=== PATIENT | female | born 1965 | race Caucasian/White ===

== ENCOUNTER 2020-01-20 00:40 | Inpatient (IN) | payer OTHER, SELFPAY ==
[2020-01-20] VITALS (17 sets, daily range): BP systolic 74–134; BP diastolic 20–71; PULSE 70–100; RESP 12–24; TEMP 36.4–37.2; O2SAT 95–100; BMI 26.4
--- NOTE | 2020-01-20 00:57 | PC.NURSE ---
kristen ride/friend [phone]
--- NOTE | 2020-01-20 01:03 | ECG_ITS ---
Test Reason : CP Blood Pressure : / mmHG Vent. Rate : 079 BPM Atrial Rate : 079 BPM P-R Int : 142 ms QRS Dur : 100 ms QT Int : 436 ms P-R-T Axes : 041 044 052 degrees QTc Int : 499 ms Normal sinus rhythm Nonspecific ST abnormality Abnormal ECG When compared with ECG of 09-OCT-2019 16:19, Heart rate has decreased Referred By: Courtney Juárez Electronically Signed By:MEE MONROY MD
--- NOTE | 2020-01-20 01:03 | XR_ITS ---
EXAMINATION: CHEST 1 VIEW CLINICAL INFORMATION: Chest pressure. Shortness of breath. COMPARISON: 09/19/2019. TECHNIQUE: An AP view of the chest is provided. FINDINGS: The cardiac silhouette is not enlarged. The mediastinal and hilar contours are unremarkable. There are neither pleural effusions nor pneumothoraces. There are no consolidations. The osseous structures are unremarkable. XR/XR chest 1V IMPRESSION: No evidence for acute disease.
[2020-01-20 01:28] LABS: Basophils Percent Auto 0.2 % (0-2); Eosinophils Absolute Auto 0.1 X10*3/uL (0.0-0.4); Eosinophils Percent Auto 1.2 % (0-4); Imm Gran Pct Auto 0.8 % (0.0-0.4); MANUAL DIFF FLAG SCAN; PLT CLUMP 1; SCAN SMEAR FLAG 1
[2020-01-20 01:30] LABS: Hemoglobin 7.2 g/dl (12.0-16.0); Lymphocytes Absolute Auto 0.9 X10*3/uL (1.2-4.9); Lymphocytes Percent Auto 7.9 % (20-40); Mean Corpuscular HGB Conc 34.3 g/dl (31.0-35.0); Mean Corpuscular Hemoglobin 31.7 pg (27.0-33.0); Mean Corpuscular Volume 92.5 fL (80-98); Mean Platelet Volume 10.5 fL (9.4-12.3); Monocytes Absolute Auto 0.9 X10*3/uL (0.1-1.2); Monocytes Percent Auto 7.8 % (2-11); Neutrophils Absolute Auto 9.8 X10*3/uL (2.0-8.3); Neutrophils Percent Auto 82.1 % (45-73); Red Blood Count 2.27 X10*6/uL (4.20-5.50); Red Cell Distribution Width 21.1 % (11.0-16.0); White Blood Count 11.9 X10*3/uL (4.8-10.8)
[2020-01-20 01:42] LABS: Ammonia 113 umol/L (13-55)
[2020-01-20 01:51] LABS: Lipase 37 U/L (8-78)
[2020-01-20 01:53] LABS: Lactic Acid 4.2 mmol/L (0.5-2.0)
[2020-01-20] MEDS: Albuterol/Iprat 2.5/0.5MG 3 ML AMPUL.NEB INHALE (01:53)
[2020-01-20 01:58] LABS: Alanine Aminotransferase 31 U/L (0-31); Albumin Level 2.1 g/dL (3.5-5.0); Alkaline Phosphatase 141 U/L (39-117); Aspartate Amino Transferase 87 U/L (5-31); Bilirubin Total 4.9 mg/dL (0.0-1.0); Blood Urea Nitrogen 16 mg/dL (9-16); Calcium 7.6 mg/dL (8.4-10.2); Carbon Dioxide 20 mmol/L (22-29); Chloride 87 mmol/L (96-108); Creatinine Clr Calc Pharmacy 54.2; Estimated Glomerular Filt Rate 51; Glucose Random 104 mg/dL (60-115); Platelet Count 57 X10*3/uL (160-400); Potassium 4.1 mmol/l (3.3-5.1)
[2020-01-20 02:02] LABS: INTERNATIONAL NORM RATIO 2.2 (0.9-1.1); Prothrombin Time 26.2 SEC (10.8-13.0)
--- NOTE | 2020-01-20 02:03 | ED.GENADULT ---
HPI - General Adult General Chief complaint: General Medical Stated complaint: SOB Time Seen by Provider: 01/20/20 01:02 Source: patient History of Present Illness HPI narrative: This is a 54-year-old female with known past medical history of alcohol abuse, liver cirrhosis, hyponatremia, and COPD who was recently admitted at [facility] 2 days ago, seen earlier at [facility] but left prior to being evaluated due to length of waiting time, and is now presenting here to this emergency department with complaints of worsening shortness of breath to the point that she is unable to smoker cigarettes as well as feeling chest pressure. She states that while she was at [facility] she was tested for COVID-19 and that was negative. Otherwise, she denies any diarrhea, urinary pain/ burning / frequency, fevers, chills, nausea, or vomiting. The patient does endorse that she did not want to be home alone. Related Data Home Medications Medication Instructions Recorded Confirmed folic acid 1 tab PO DAILY 01/20/20 01/20/20 gabapentin 1 tab PO TID 01/20/20 01/20/20 hydroxyzine pamoate 1 cap PO TID 01/20/20 01/20/20 lactulose 15 g PO TID 01/20/20 01/20/20 lorazepam 1 tab PO TID PRN 01/20/20 01/20/20 magnesium oxide 1 tab PO BID 01/20/20 01/20/20 melatonin 3 mg PO BEDTIME PRN 01/20/20 01/20/20 omeprazole 20 mg PO DAILY 01/20/20 01/20/20 potassium chloride 1 tab PO BID 01/20/20 01/20/20 rifaximin [Xifaxan] 1 tab PO BID 01/20/20 01/20/20 spironolactone 50 mg PO DAILY 01/20/20 01/20/20 torsemide 20 mg PO DAILY 01/20/20 01/20/20 Allergies Allergy/AdvReac Type Severity Reaction Status Date / Time lamotrigine [From LAMICTAL] Allergy Intermediate RASH Verified 01/20/20 00:45 amoxicillin [AMOXICILLIN] Allergy Unknown NAUSEA & Verified 01/20/20 00:45 VOMITING Iodinated Contrast Media Allergy Unknown ANAPHYLAXIS Verified 01/20/20 00:45 [CONTRAST, IV] Sulfa (Sulfonamide Allergy Unknown UNKNOWN Verified 11/04/20 00:45 Antibiotics) [SULFA (SULFONAMIDE ANTIBIOTICS)] sulfamethoxazole Allergy Unknown UNK Verified 01/20/20 00:45 [From BACTRIM] trimethoprim [From BACTRIM] Allergy Unknown UNK Verified 01/20/20 00:45 Review of Systems Review of Systems: Pertinent positives and negatives as stated in HPI 10 point review of systems is otherwise negative. [facility] Past Medical History Source: nursing notes reviewed Medical History Anxiety Cirrhosis Diabetes 1.5, managed as type 2 Social History Social History Advance Directives: No Advance Directives Information Provided: No Physical Exam Vital Signs: Vital Signs: Vital Signs Temp Pulse Resp BP Pulse Ox 01/20/20 07:51 98 F 88 18 98/39 L 96 01/20/20 07:30 78 18 100 01/20/20 06:05 97.9 F 100 14 105/30 L 01/20/20 05:46 98.7 F 73 12 104/35 L 01/20/20 04:00 78 105/36 L 01/20/20 01:45 70 14 95/29 L 98 01/20/20 01:03 75 16 74/20 L 100 01/20/20 00:46 98.9 F 80 24 H 99/50 L 100 Body Mass Index 26.4 VITAL SIGNS: Reviewed. GENERAL: Chronically ill, moderate distress. HEAD: Normocephalic/atraumatic, EYES: PERRLA, EOMI intact without pain, no nystagmus/pallor, +icterus EARS: Ext canals without abnormality, TMs non-bulging and non-erythematous NOSE: Nares patent bilateral OROPHARYNX: no oral lesions noted, posterior pharynx clear and non-erythematous without noted tonsillar enlargement/erythema/exudates NECK: Supple, no adenopathy LUNGS: Decreased breath sounds b/l. No adventitious sounds or accessory muscle use. SpO2<100> CARDIOVASCULAR: Regular rate and rhythm without noted murmurs, no JVD or lower extremity edema. ABDOMEN: Soft, non-tender, distended with bowel sounds. No fluid wave noted. No rigidity. No guarding. No palpable masses or hernias noted LIZ: no lesions or tags, soft stool in rectal vault without gross blood on finger and good rectal tone MUSCULOSKELETAL: No tenderness, deformities, or effusions noted on gross inspection. EXTREMITIES: No cyanosis, clubbing or edema. SKIN: Inspection of the skin reveals no rashes, ulcerations, pallor, or petechiae, +jaundice. NEUROLOGIC: Alert and oriented x 4. Strength and sensation to light touch were grossly intact x 4. Course Course Course Narrative: This is a 54-year-old female with history and clinical presentation most consistent with acute decompensated liver disease. Although there is noted hypotension and tachypnea this is likely due to pulmonary congestion and less likely due to infectious etiology or COPD exacerbation. In addition, the noted lactic acidemia is likely secondary to underlying liver disease limiting appropriate metabolism. However, would not give sepsis fluids to this patient regardless due to noted pulmonary congestion and effusion on bedside ultrasound. There is a noted elevated ammonia level which corroborates patient complaint of feeling confused. Awaiting records request from [facility]. - CBC, CMP, PT/INR, BCx, Lactic Acid, Lipase, Ammonia, COLUNGA, ETOH, hsTroponin, Mg, BNP, T&S, Osmolality, FOB, SARS - Lactulose Patient is noted to be hyponatremic with Serum Osm-255 and will receive 500ml 0.9% NS for this and then the BMP will be repeated. On review of CT of the chest there is no pleural effusion identified but there are bilateral posterior infiltrates appreciated. This case was discussed with the inpatient hospitalist as well as the tin pourer. Dr. Blackman will be accepting the patient into the ICU and recommends 200 cc of 25% albumin, 20 mg of vitamin K, and 1 unit of PRBC. Repeat lab work will be obtained at 9:30 a.m. and patient to be transported to ICU room for this morning. Medical Decision Making Lab Data Result diagrams: 01/20/20 01:10 01/20/20 03:42 Labs: Lab Results 01/20/20 01/20/20 01/20/20 Range/Units 01:10 01:10 01:10 WBC 11.9 H (4.8-10.8) X10*3/uL RBC 2.27 L (4.20-5.50) X10*6/uL Hgb 7.2 L (12.0-16.0) g/dl Hct 21.0 L* (37-47) % MCV 92.5 (80-98) fL MCH 31.7 (27.0-33.0) pg MCHC 34.3 (31.0-35.0) g/dl RDW 21.1 H (11.0-16.0) % Plt Count 57 L (160-400) X10*3/uL MPV 10.5 (9.4-12.3) fL Immature Gran % (Auto) 0.8 H (0.0-0.4) % Neut % (Auto) 82.1 H (45-73) % Lymph % (Auto) 7.9 L (20-40) % [place] % (Auto) 7.8 (2-11) % Eos % (Auto) 1.2 (0-4) % Baso % (Auto) 0.2 (0-2) % Lymph # (Auto) 0.9 L (1.2-4.9) X10*3/uL [place] # (Auto) 0.9 (0.1-1.2) X10*3/uL Eos # (Auto) 0.1 (0.0-0.4) X10*3/uL Baso # (Auto) 0.0 (0.0-0.2) X10*3/uL Abs Immat Gran (auto) 0.10 H (0.00-0.03) X10*3/uL Absolute Neuts (auto) 9.8 H (2.0-8.3) X10*3/uL Absolute Nucleated RBC 0.000 (0.0-0.012) X10*3/uL Nucleated RBC % (auto) 0.0 (0.0-0.2) /100WBC Smear Tech's Comments VERIFIED PT (10.8-13.0) SEC INR (0.9-1.1) Sodium 118 L* (135-145) mmol/L Potassium 4.1 (3.3-5.1) mmol/l Chloride 87 L (96-108) mmol/L Carbon Dioxide 20 L (22-29) mmol/L Anion Gap 15 (12-20) BUN 16 (9-16) mg/dL Creatinine 1.12 (0.5-1.4) mg/dL Estim Creat Clear Calc 54.2 Estimated GFR 51 Random Glucose 104 (60-115) mg/dL Osmolality (281-305) mosm/kg Lactic Acid (0.5-2.0) mmol/L Lactic Acid Fup @ 2Hr (0.5-2.0) mmol/L Calcium 7.6 L (8.4-10.2) mg/dL Phosphorus (2.7-4.5) mg/dL Magnesium (1.6-2.6) mg/dL Total Bilirubin 4.9 H (0.0-1.0) mg/dL AST 87 H (5-31) U/L ALT 31 (0-31) U/L Alkaline Phosphatase 141 H (39-117) U/L Ammonia 113 H (13-55) umol/L Troponin I High Sens (<3.5-17.0) ng/L B-Natriuretic Peptide (<100) pg/mL Total Protein 5.0 L (6.5-8.0) g/dL Albumin 2.1 L (3.5-5.0) g/dL Lipase (8-78) U/L Urine Color Urine Appearance Urine pH (5.0-8.0) Ur Specific [place] (1.005-1.025) Urine Protein (NEG-TRACE) MG/DL Urine Glucose (UA) (NEG) MG/DL Urine Ketones (NEG) MG/DL Urine Blood (NEG) Urine Nitrite (NEG) Ur Leukocyte Esterase (NEG) Urine Osmolality (373-1093) mosm/kg Stool Occult Blood (NEG) Urine Opiates Screen (Not Detect) Ur Barbiturates Screen (Not Detect) Ur Phencyclidine Scrn (Not Detect) Ur Amphetamines Screen (Not Detect) U Benzodiazepines Scrn (Not Detect) Urine Cocaine Screen (Not Detect) U Marijuana (THC) Screen (Not Detect) Ethyl Alcohol mg/dL Coronavirus (PCR) (Negative) Blood Type Antibody Screen Crossmatch 01/20/20 01/20/20 01/20/20 Range/Units 01:10 01:10 01:10 WBC (4.8-10.8) X10*3/uL RBC (4.20-5.50) X10*6/uL Hgb (12.0-16.0) g/dl Hct (37-47) % MCV (80-98) fL MCH (27.0-33.0) pg MCHC (31.0-35.0) g/dl RDW (11.0-16.0) % Plt Count (160-400) X10*3/uL MPV (9.4-12.3) fL Immature Gran % (Auto) (0.0-0.4) % Neut % (Auto) (45-73) % Lymph % (Auto) (20-40) % [place]ck[place] % (Auto) (2-11) % Eos % (Auto) (0-4) % Baso % (Auto) (0-2) % Lymph # (Auto) (1.2-4.9) X10*3/uL [place] # (Auto) (0.1-1.2) X10*3/uL Eos # (Auto) (0.0-0.4) X10*3/uL Baso # (Auto) (0.0-0.2) X10*3/uL Abs Immat Gran (auto) (0.00-0.03) X10*3/uL Absolute Neuts (auto) (2.0-8.3) X10*3/uL Absolute Nucleated RBC (0.0-0.012) X10*3/uL Nucleated RBC % (auto) (0.0-0.2) /100WBC Smear Tech's Comments PT 26.2 H (10.8-13.0) SEC INR 2.2 H (0.9-1.1) Sodium (135-145) mmol/L Potassium (3.3-5.1) mmol/l Chloride (96-108) mmol/L Carbon Dioxide (22-29) mmol/L Anion Gap (12-20) BUN (9-16) mg/dL Creatinine (0.5-1.4) mg/dL Estim Creat Clear Calc Estimated GFR Random Glucose (60-115) mg/dL Osmolality (281-305) mosm/kg Lactic Acid 4.2 H* (0.5-2.0) mmol/L Lactic Acid Fup @ 2Hr (0.5-2.0) mmol/L Calcium (8.4-10.2) mg/dL Phosphorus (2.7-4.5) mg/dL Magnesium (1.6-2.6) mg/dL Total Bilirubin (0.0-1.0) mg/dL AST (5-31) U/L ALT (0-31) U/L Alkaline Phosphatase (39-117) U/L Ammonia (13-55) umol/L Troponin I High Sens 18.4 H (<3.5-17.0) ng/L B-Natriuretic Peptide 71 (<100) pg/mL Total Protein (6.5-8.0) g/dL Albumin (3.5-5.0) g/dL Lipase (8-78) U/L Urine Color Urine Appearance Urine pH (5.0-8.0) Ur Specific [place] (1.005-1.025) Urine Protein (NEG-TRACE) MG/DL Urine Glucose (UA) (NEG) MG/DL Urine Ketones (NEG) MG/DL Urine Blood (NEG) Urine Nitrite (NEG) Ur Leukocyte Esterase (NEG) Urine Osmolality (373-1093) mosm/kg Stool Occult Blood (NEG) Urine Opiates Screen (Not Detect) Ur Barbiturates Screen (Not Detect) Ur Phencyclidine Scrn (Not Detect) Ur Amphetamines Screen (Not Detect) U Benzodiazepines Scrn (Not Detect) Urine Cocaine Screen (Not Detect) U Marijuana (THC) Screen (Not Detect) Ethyl Alcohol mg/dL Coronavirus (PCR) (Negative) Blood Type Antibody Screen Crossmatch 01/20/20 01/20/20 01/20/20 Range/Units 01:10 01:10 01:10 WBC (4.8-10.8) X10*3/uL RBC (4.20-5.50) X10*6/uL Hgb (12.0-16.0) g/dl Hct (37-47) % MCV (80-98) fL MCH (27.0-33.0) pg MCHC (31.0-35.0) g/dl RDW (11.0-16.0) % Plt Count (160-400) X10*3/uL MPV (9.4-12.3) fL Immature Gran % (Auto) (0.0-0.4) % Neut % (Auto) (45-73) % Lymph % (Auto) (20-40) % [place]ett % (Auto) (2-11) % Eos % (Auto) (0-4) % Baso % (Auto) (0-2) % Lymph # (Auto) (1.2-4.9) X10*3/uL [place] # (Auto) (0.1-1.2) X10*3/uL Eos # (Auto) (0.0-0.4) X10*3/uL Baso # (Auto) (0.0-0.2) X10*3/uL Abs Immat Gran (auto) (0.00-0.03) X10*3/uL Absolute Neuts (auto) (2.0-8.3) X10*3/uL Absolute Nucleated RBC (0.0-0.012) X10*3/uL Nucleated RBC % (auto) (0.0-0.2) /100WBC Smear Tech's Comments PT (10.8-13.0) SEC INR (0.9-1.1) Sodium (135-145) mmol/L Potassium (3.3-5.1) mmol/l Chloride (96-108) mmol/L Carbon Dioxide (22-29) mmol/L Anion Gap (12-20) BUN (9-16) mg/dL Creatinine (0.5-1.4) mg/dL Estim Creat Clear Calc Estimated GFR Random Glucose (60-115) mg/dL Osmolality 255 L (281-305) mosm/kg Lactic Acid (0.5-2.0) mmol/L Lactic Acid Fup @ 2Hr (0.5-2.0) mmol/L Calcium (8.4-10.2) mg/dL Phosphorus (2.7-4.5) mg/dL Magnesium 2.0 (1.6-2.6) mg/dL Total Bilirubin (0.0-1.0) mg/dL AST (5-31) U/L ALT (0-31) U/L Alkaline Phosphatase (39-117) U/L Ammonia (13-55) umol/L Troponin I High Sens (<3.5-17.0) ng/L B-Natriuretic Peptide (<100) pg/mL Total Protein (6.5-8.0) g/dL Albumin (3.5-5.0) g/dL Lipase 37 (8-78) U/L Urine Color Urine Appearance Urine pH (5.0-8.0) Ur Specific [place] (1.005-1.025) Urine Protein (NEG-TRACE) MG/DL Urine Glucose (UA) (NEG) MG/DL Urine Ketones (NEG) MG/DL Urine Blood (NEG) Urine Nitrite (NEG) Ur Leukocyte Esterase (NEG) Urine Osmolality (373-1093) mosm/kg Stool Occult Blood (NEG) Urine Opiates Screen (Not Detect) Ur Barbiturates Screen (Not Detect) Ur Phencyclidine Scrn (Not Detect) Ur Amphetamines Screen (Not Detect) U Benzodiazepines Scrn (Not Detect) Urine Cocaine Screen (Not Detect) U Marijuana (THC) Screen (Not Detect) Ethyl Alcohol < 10 mg/dL Coronavirus (PCR) (Negative) Blood Type Antibody Screen Crossmatch 01/20/20 01/20/20 01/20/20 Range/Units 02:29 03:42 03:42 WBC (4.8-10.8) X10*3/uL RBC (4.20-5.50) X10*6/uL Hgb (12.0-16.0) g/dl Hct (37-47) % MCV (80-98) fL MCH (27.0-33.0) pg MCHC (31.0-35.0) g/dl RDW (11.0-16.0) % Plt Count (160-400) X10*3/uL MPV (9.4-12.3) fL Immature Gran % (Auto) (0.0-0.4) % Neut % (Auto) (45-73) % Lymph % (Auto) (20-40) % [place] % (Auto) (2-11) % Eos % (Auto) (0-4) % Baso % (Auto) (0-2) % Lymph # (Auto) (1.2-4.9) X10*3/uL [place] # (Auto) (0.1-1.2) X10*3/uL Eos # (Auto) (0.0-0.4) X10*3/uL Baso # (Auto) (0.0-0.2) X10*3/uL Abs Immat Gran (auto) (0.00-0.03) X10*3/uL Absolute Neuts (auto) (2.0-8.3) X10*3/uL Absolute Nucleated RBC (0.0-0.012) X10*3/uL Nucleated RBC % (auto) (0.0-0.2) /100WBC Smear Tech's Comments PT (10.8-13.0) SEC INR (0.9-1.1) Sodium (135-145) mmol/L Potassium (3.3-5.1) mmol/l Chloride (96-108) mmol/L Carbon Dioxide (22-29) mmol/L Anion Gap (12-20) BUN (9-16) mg/dL Creatinine (0.5-1.4) mg/dL Estim Creat Clear Calc Estimated GFR Random Glucose (60-115) mg/dL Osmolality (281-305) mosm/kg Lactic Acid (0.5-2.0) mmol/L Lactic Acid Fup @ 2Hr (0.5-2.0) mmol/L Calcium (8.4-10.2) mg/dL Phosphorus (2.7-4.5) mg/dL Magnesium (1.6-2.6) mg/dL Total Bilirubin (0.0-1.0) mg/dL AST (5-31) U/L ALT (0-31) U/L Alkaline Phosphatase (39-117) U/L Ammonia (13-55) umol/L Troponin I High Sens (<3.5-17.0) ng/L B-Natriuretic Peptide (<100) pg/mL Total Protein (6.5-8.0) g/dL Albumin (3.5-5.0) g/dL Lipase (8-78) U/L Urine Color Urine Appearance Urine pH (5.0-8.0) Ur Specific [place] (1.005-1.025) Urine Protein (NEG-TRACE) MG/DL Urine Glucose (UA) (NEG) MG/DL Urine Ketones (NEG) MG/DL Urine Blood (NEG) Urine Nitrite (NEG) Ur Leukocyte Esterase (NEG) Urine Osmolality (373-1093) mosm/kg Stool Occult Blood POS (NEG) Urine Opiates Screen (Not Detect) Ur Barbiturates Screen (Not Detect) Ur Phencyclidine Scrn (Not Detect) Ur Amphetamines Screen (Not Detect) U Benzodiazepines Scrn (Not Detect) Urine Cocaine Screen (Not Detect) U Marijuana (THC) Screen (Not Detect) Ethyl Alcohol mg/dL Coronavirus (PCR) NEGATIVE (Negative) Blood Type A Negative Antibody Screen NEGATIVE Crossmatch See Detail 01/20/20 01/20/20 01/20/20 Range/Units 03:42 04:14 04:14 WBC (4.8-10.8) X10*3/uL RBC (4.20-5.50) X10*6/uL Hgb (12.0-16.0) g/dl Hct (37-47) % MCV (80-98) fL MCH (27.0-33.0) pg MCHC (31.0-35.0) g/dl RDW (11.0-16.0) % Plt Count (160-400) X10*3/uL MPV (9.4-12.3) fL Immature Gran % (Auto) (0.0-0.4) % Neut % (Auto) (45-73) % Lymph % (Auto) (20-40) % [place] % (Auto) (2-11) % Eos % (Auto) (0-4) % Baso % (Auto) (0-2) % Lymph # (Auto) (1.2-4.9) X10*3/uL [place] # (Auto) (0.1-1.2) X10*3/uL Eos # (Auto) (0.0-0.4) X10*3/uL Baso # (Auto) (0.0-0.2) X10*3/uL Abs Immat Gran (auto) (0.00-0.03) X10*3/uL Absolute Neuts (auto) (2.0-8.3) X10*3/uL Absolute Nucleated RBC (0.0-0.012) X10*3/uL Nucleated RBC % (auto) (0.0-0.2) /100WBC Smear Tech's Comments PT (10.8-13.0) SEC INR (0.9-1.1) Sodium 117 L* (135-145) mmol/L Potassium 4.4 (3.3-5.1) mmol/l Chloride 88 L (96-108) mmol/L Carbon Dioxide 22 (22-29) mmol/L Anion Gap 11 L (12-20) BUN 16 (9-16) mg/dL Creatinine 0.93 (0.5-1.4) mg/dL Estim Creat Clear Calc 65.3 Estimated GFR > 60 Random Glucose 110 (60-115) mg/dL Osmolality (281-305) mosm/kg Lactic Acid (0.5-2.0) mmol/L Lactic Acid Fup @ 2Hr (0.5-2.0) mmol/L Calcium 7.3 L (8.4-10.2) mg/dL Phosphorus 3.1 (2.7-4.5) mg/dL Magnesium (1.6-2.6) mg/dL Total Bilirubin (0.0-1.0) mg/dL AST (5-31) U/L ALT (0-31) U/L Alkaline Phosphatase (39-117) U/L Ammonia (13-55) umol/L Troponin I High Sens (<3.5-17.0) ng/L B-Natriuretic Peptide (<100) pg/mL Total Protein (6.5-8.0) g/dL Albumin (3.5-5.0) g/dL Lipase (8-78) U/L Urine Color YELLOW Urine Appearance CLEAR Urine pH 6.0 (5.0-8.0) Ur Specific [place] 1.010 (1.005-1.025) Urine Protein NEG (NEG-TRACE) MG/DL Urine Glucose (UA) NEG (NEG) MG/DL Urine Ketones NEG (NEG) MG/DL Urine Blood NEG (NEG) Urine Nitrite NEG (NEG) Ur Leukocyte Esterase NEG (NEG) Urine Osmolality (373-1093) mosm/kg Stool Occult Blood (NEG) Urine Opiates Screen Not Detected (Not Detect) Ur Barbiturates Screen Not Detected (Not Detect) Ur Phencyclidine Scrn Not Detected (Not Detect) Ur Amphetamines Screen Not Detected (Not Detect) U Benzodiazepines Scrn Not Detected (Not Detect) Urine Cocaine Screen Not Detected (Not Detect) U Marijuana (THC) Screen Not Detected (Not Detect) Ethyl Alcohol mg/dL Coronavirus (PCR) (Negative) Blood Type Antibody Screen Crossmatch 01/20/20 01/20/20 Range/Units 04:14 04:41 WBC (4.8-10.8) X10*3/uL RBC (4.20-5.50) X10*6/uL Hgb (12.0-16.0) g/dl Hct (37-47) % MCV (80-98) fL MCH (27.0-33.0) pg MCHC (31.0-35.0) g/dl RDW (11.0-16.0) % Plt Count (160-400) X10*3/uL MPV (9.4-12.3) fL Immature Gran % (Auto) (0.0-0.4) % Neut % (Auto) (45-73) % Lymph % (Auto) (20-40) % [place] % (Auto) (2-11) % Eos % (Auto) (0-4) % Baso % (Auto) (0-2) % Lymph # (Auto) (1.2-4.9) X10*3/uL [place] # (Auto) (0.1-1.2) X10*3/uL Eos # (Auto) (0.0-0.4) X10*3/uL Baso # (Auto) (0.0-0.2) X10*3/uL Abs Immat Gran (auto) (0.00-0.03) X10*3/uL Absolute Neuts (auto) (2.0-8.3) X10*3/uL Absolute Nucleated RBC (0.0-0.012) X10*3/uL Nucleated RBC % (auto) (0.0-0.2) /100WBC Smear Tech's Comments PT (10.8-13.0) SEC INR (0.9-1.1) Sodium (135-145) mmol/L Potassium (3.3-5.1) mmol/l Chloride (96-108) mmol/L Carbon Dioxide (22-29) mmol/L Anion Gap (12-20) BUN (9-16) mg/dL Creatinine (0.5-1.4) mg/dL Estim Creat Clear Calc Estimated GFR Random Glucose (60-115) mg/dL Osmolality (281-305) mosm/kg Lactic Acid (0.5-2.0) mmol/L Lactic Acid Fup @ 2Hr 2.0 (0.5-2.0) mmol/L Calcium (8.4-10.2) mg/dL Phosphorus (2.7-4.5) mg/dL Magnesium (1.6-2.6) mg/dL Total Bilirubin (0.0-1.0) mg/dL AST (5-31) U/L ALT (0-31) U/L Alkaline Phosphatase (39-117) U/L Ammonia (13-55) umol/L Troponin I High Sens (<3.5-17.0) ng/L B-Natriuretic Peptide (<100) pg/mL Total Protein (6.5-8.0) g/dL Albumin (3.5-5.0) g/dL Lipase (8-78) U/L Urine Color Urine Appearance Urine pH (5.0-8.0) Ur Specific [place] (1.005-1.025) Urine Protein (NEG-TRACE) MG/DL Urine Glucose (UA) (NEG) MG/DL Urine Ketones (NEG) MG/DL Urine Blood (NEG) Urine Nitrite (NEG) Ur Leukocyte Esterase (NEG) Urine Osmolality 260 L (373-1093) mosm/kg Stool Occult Blood (NEG) Urine Opiates Screen (Not Detect) Ur Barbiturates Screen (Not Detect) Ur Phencyclidine Scrn (Not Detect) Ur Amphetamines Screen (Not Detect) U Benzodiazepines Scrn (Not Detect) Urine Cocaine Screen (Not Detect) U Marijuana (THC) Screen (Not Detect) Ethyl Alcohol mg/dL Coronavirus (PCR) (Negative) Blood Type Antibody Screen Crossmatch ECG Data Attestation: I personally reviewed and interpreted this ECG as follows: Prior ECG tracings: available for review ( 10/09/2019 no acute changes on comparison) Interpretation: Normal sinus rhythm, HR -79, AL/QRS are within normal limits, QTC mildly prolonged at 499. Discharge Plan Discharge Clinical Impression: Hepatic encephalopathy, Hyponatremia Anemia Qualifiers: Anemia type: unspecified type Qualified Code(s): D64.9 - Anemia, unspecified Patient Disposition: Admitted As Inpatient
[2020-01-20 02:04] LABS: Ethanol < 10 mg/dL
[2020-01-20 02:10] LABS: Anion Gap 15 (12-20); Sodium 118 mmol/L (135-145); Troponin-I High Sensitivity 18.4 ng/L (<3.5-17.0)
[2020-01-20] MEDS: Lactulose 20 GM/30 ML SOLUTION 30 GM PO (02:34)
[2020-01-20] MEDS: 0.9 % Sodium Chloride 500 ML IV (02:34)
[2020-01-20 02:44] LABS: Osmolality, Serum 255 mosm/kg (281-305)
--- NOTE | 2020-01-20 02:47 | CT_ITS ---
EXAMINATION: CT CHEST WITHOUT CONTRAST CLINICAL INFORMATION: Shortness of breath. COMPARISON: Same day chest radiograph. TECHNIQUE: Contiguous axial thin section helical images of the chest were performed without contrast. The data set was reformatted in the coronal and sagittal planes and reviewed on an independent workstation. DLP: 166 mGy-cm. FINDINGS: The heart is of normal size. There is no pericardial effusion. Please note that evaluation for lymphadenopathy is significantly limited due to the lack of IV contrast; however, there is no demonstrable mediastinal, hilar or axillary lymphadenopathy. There are no chest wall masses. Review of lung windows demonstrates that there are neither pleural effusions nor pneumothoraces. Within the superior segments of each lower lobe, there are a few patchy areas of groundglass opacification. There are no pulmonary parenchymal nodules. Within the upper abdomen, a TIPS is demonstrable within the liver. The liver is small with subcapsular subcapsular nodularity. There is a small amount of free fluid within the upper abdomen. Bone windows: Neither sclerotic nor lytic bone lesions are identified. CT/CT chest wo con IMPRESSION: Few nonspecific patchy areas of groundglass opacification within the superior segments of both lower lobes. TIPS in place within the liver. A small amount of upper abdominal free fluid. Automated exposure control (Care Dose) Adjustment of the mA and/or kv according to patient size (this includes techniques or standardized protocols for targeted exams where dose is matched to indication / reason for exam; i.e. extremities or head).
[2020-01-20 03:02] LABS: SLIDE REVIEW VERIFIED
[2020-01-20 03:04] LABS: B Type Natriuretic Peptide 71 pg/mL (<100)
[2020-01-20 03:25] LABS: Reflex Lactate? Lactic Acid Added
[2020-01-20 04:02] LABS: OBS Int Ctl Valid YES; OBS1 POS (NEG)
--- NOTE | 2020-01-20 04:14 | PC.NURSE ---
pt assisted to bdside commode, unable to void, had a small soft bm. needed to collect urine with straight cath.
[2020-01-20 04:17] LABS: Anion Gap 11 (12-20); Blood Urea Nitrogen 16 mg/dL (9-16); Calcium 7.3 mg/dL (8.4-10.2); Carbon Dioxide 22 mmol/L (22-29); Chloride 88 mmol/L (96-108); Creatinine Clr Calc Pharmacy 65.3; Estimated Glomerular Filt Rate > 60; Glucose Random 110 mg/dL (60-115); Potassium 4.4 mmol/l (3.3-5.1); Sodium 117 mmol/L (135-145)
--- NOTE | 2020-01-20 04:24 | PC.NURSE ---
500ml urine from straight cath.
[2020-01-20 04:40] LABS: Glucose Urine UA NEG (NEG); Leukocyte Esterase Urine NEG (NEG); Nitrite Urine NEG (NEG); Urine Blood NEG (NEG); Urine Ketones NEG (NEG); Urine Protein NEG (NEG-TRACE)
[2020-01-20 04:41] LABS: Appearance Urine CLEAR; Color Urine YELLOW
[2020-01-20 04:44] LABS: SARS COV2 PCR INHOUSE NEGATIVE (Negative)
[2020-01-20 04:44] LABS: Amphetamine Screen Urine Not Detected (Not Detect); Barbiturates, Urine Not Detected (Not Detect); Benzodiazepines Screen Urine Not Detected (Not Detect); Cannabinoid Screen Urine Not Detected (Not Detect); Cocaine Screen Urine Not Detected (Not Detect); Opiate Screen Urine Not Detected (Not Detect); Phencyclidine Screen Urine Not Detected (Not Detect)
[2020-01-20 04:48] LABS: Osmolality Urine 260 mosm/kg (373-1093)
--- NOTE | 2020-01-20 04:57 | PC.NURSE ---
CONFIRMED VITAMIN K ORDER IV WITH ER PROVIDER AND PHARMACY. PHARMACY CONFIRMS THAT MEDICATION IS SAFE TO GIVE ORDERED, OVER 1 HOUR. MONITOR FOR PAIN, SWELLING AND RASH. MARYLU MORAN IN ICU CONFIRMS THAT VITAMIN K CAN BE ADMINISTERED SAFELY OVER 1 HOUR. PHARMACY STATES TO WATCH FOR PAIN, SWELLING AND RASH.
[2020-01-20 05:03] LABS: Phosphorus 3.1 mg/dL (2.7-4.5)
--- NOTE | 2020-01-20 05:45 | PC.NURSE ---
unable to obtain second iv site. albumin and vitamin k administration will be delayed.
--- NOTE | 2020-01-20 06:03 | PC.NURSE ---
PT REPORTS THAT HER HEALTH CARE PROXY IS [facility]. [facility] HAS A COPY OF HER MOLST FORM. PT STATES THAT SHE WANTS TO BE KEPT ALIVE IF SOMETHING HAPPENS.
--- NOTE | 2020-01-20 06:10 | PC.NURSE ---
PT TOLERATING FLUIDS WELL, ABLE TO DRINK 8 OZ OF COLE SAV WITH NO COMPLAINT OF NAUSEA.
--- NOTE | 2020-01-20 06:46 | PC.NURSE ---
PT AWAITING EVALUATION FROM ICU PROVIDER AND ORDERS.
[2020-01-20] MEDS: Albumin Human 25 % 100 ML IV ×2 (07:27→08:28)
[2020-01-20 09:17] LABS: Eosinophils Absolute Auto 0.2 X10*3/uL (0.0-0.4); Eosinophils Percent Auto 1.4 % (0-4); Hematocrit 22.1 % (37-47); Hemoglobin 7.6 g/dl (12.0-16.0); Mean Corpuscular HGB Conc 34.4 g/dl (31.0-35.0); Mean Corpuscular Hemoglobin 31.8 pg (27.0-33.0); Mean Corpuscular Volume 92.5 fL (80-98); Red Blood Count 2.39 X10*6/uL (4.20-5.50)
[2020-01-20 09:19] LABS: Basophils Percent Auto 0.2 % (0-2); Imm Gran Abs Auto 0.14 X10*3/uL (0.00-0.03); Imm Gran Pct Auto 1.2 % (0.0-0.4); Lymphocytes Absolute Auto 0.9 X10*3/uL (1.2-4.9); Lymphocytes Percent Auto 7.8 % (20-40); Mean Platelet Volume 10.7 fL (9.4-12.3); Monocytes Absolute Auto 0.7 X10*3/uL (0.1-1.2); Monocytes Percent Auto 6.3 % (2-11); Neutrophils Absolute Auto 9.9 X10*3/uL (2.0-8.3); Neutrophils Percent Auto 83.1 % (45-73); Red Cell Distribution Width 19.5 % (11.0-16.0); White Blood Count 11.8 X10*3/uL (4.8-10.8)
[2020-01-20 09:20] LABS: Platelet Count 57 X10*3/uL (160-400)
[2020-01-20 09:45] LABS: Alanine Aminotransferase 26 U/L (0-31); Albumin Level 3.1 g/dL (3.5-5.0); Alkaline Phosphatase 123 U/L (39-117); Anion Gap 12 (12-20); Aspartate Amino Transferase 56 U/L (5-31); Bilirubin Total 8.3 mg/dL (0.0-1.0); Blood Urea Nitrogen 16 mg/dL (9-16); Calcium 7.7 mg/dL (8.4-10.2); Carbon Dioxide 25 mmol/L (22-29); Chloride 89 mmol/L (96-108); Creatinine Clr Calc Pharmacy 73.2; Estimated Glomerular Filt Rate > 60; Glucose Random 83 mg/dL (60-115); Potassium 4.8 mmol/l (3.3-5.1); Sodium 121 mmol/L (135-145); Total Protein 5.5 g/dL (6.5-8.0)
--- NOTE | 2020-01-20 10:04 | P.CONCC_ITS ---
History of Present Illness Data of Consult Service Date: 01/20/20 Requesting physician: Courtney Juárez Primary Care Provider: Nuvia Bagley NP HPI Reason for consult: Hyponatremia I was called to see Mrs. Nicole in the ED bec of hyponatremia. This is a 54-year-old female with known past medical history of alcohol abuse, liver cirrhosis, hyponatremia, and COPD. According to records from [facility], the patient has a long history of alcoholic cirrhosis. She?s had a tips procedure. Multiple admissions to [facility] and [facility] for hepatic encephalopathy and hyponatremia. She was taken off the transplant list at [facility] because of continued alcohol use. Been admitted to [facility] 4 times in the last month. Commonly presents with hyponatremia, hypokalemia, and hypomagnesemia. Recently admitted observation status at [facility] 2 days ago. Seen earlier yesterday at [facility] but left prior to being evaluated due to length of waiting time. Came to our ED early this morning with complaints of shortness of breath to the point that she is unable to smoker cigarettes as well as feeling chest pressure. She stated that while she was at [facility] she was tested for COVID-19 and that was negative. Denied diarrhea, urinary pain/ burning / frequency, fevers, chills, nausea, or vomiting. In the ED, she was fully alert and oriented. Heart rate 80, blood pressure 99/50, respiratory rate 24, sat 100% on some level of oxygen. A short time later, respiratory rate was 14 to 16, with a sat in the high 90s on room air. Temperature was 98.9 degrees. The general physical exam was notable for scleral icterus and brown stool in the rectal vault. No edema. Abdomen was benign. Labs in the ED were notable for white count of 11.9, hemoglobin of 7.2 (baseline ? about 9), INR 2.2 (baseline about 2.0), sodium 118 (baseline? 131), BUN and creatinine 16/1.1 (baseline 5/0.6), T bili 4.9 (last 5.8), AST 87, ammonia level 113, albumin 2.1 (baseline 2.3). Screening urinalysis was negative. Tox screen including ethyl alcohol was negative. Coronavirus PCR was negative. Chest x-ray was negative. Noncontrast CT was remarkable for few nonspecific patchy areas of groundglass opacification within the superior segments of both lower lobes. TIPS in place within the liver. A small amount of upper abdominal free fluid. The patient was given 500 cc of saline, 1 unit of packed cells, 200 cc of 25% albumin, and lactulose. On my exam in the ED this morning, the patient is somnolent; I did not try very hard to wake her. She is breathing easy with an unobstructed airway, with sat 96-100% on room air. Last blood pressure is 120/71. Mild scleral icterus. No JVD at about 10 degrees. Chest is clear to auscultation, with a normal expiratory phase. The abdomen is benign, probably with no ascites. I was not able to feel her liver. She has no peripheral edema. Repeat labs this morning show a sodium of 121. BUN and creatinine are down to 16/0.83. Potassium is 4.8. IMPRESSION: 1. Alcoholic cirrhosis. 2. Probable hepatic encephalopathy. 3. Coagulopathy and thrombocytopenia, both presumably from chronic liver disease. 4. Anemia. 5. Chronic hyponatremia. No evidence of sepsis or other life-threatening clinical issues. The patient can be safely managed on the regular medical curiel. I?ve discussed her with Dr. Coppola, and I will discuss her with the hospitalists. Time (including extended chart review, multiple discussions with the ED staff, and discussion with Dr. Spencer at [facility] to obtain records and past history): 85 min. ([id number] [phone] [id number]) [facility] Past Medical History Medical History Anxiety Cirrhosis Diabetes 1.5, managed as type 2 Social History Social History Advance Directives: No Advance Directives Information Provided: No Meds Allergies Allergy/AdvReac Type Severity Reaction Status Date / Time lamotrigine [From LAMICTAL] Allergy Intermediate RASH Verified 01/20/20 00:45 amoxicillin [AMOXICILLIN] Allergy Unknown NAUSEA & Verified 01/20/20 00:45 VOMITING Iodinated Contrast Media Allergy Unknown ANAPHYLAXIS Verified 01/20/20 00:45 [CONTRAST, IV] Sulfa (Sulfonamide Allergy Unknown UNKNOWN Verified 01/20/20 00:45 Antibiotics) [SULFA (SULFONAMIDE ANTIBIOTICS)] sulfamethoxazole Allergy Unknown UNK Verified 01/20/20 00:45 [From BACTRIM] trimethoprim [From BACTRIM] Allergy Unknown UNK Verified 01/20/20 00:45 Home Medications Medication Instructions Recorded Confirmed Type folic acid 1 tab PO DAILY 01/20/20 01/20/20 History gabapentin 1 tab PO TID 01/20/20 01/20/20 History hydroxyzine pamoate 1 cap PO TID 01/20/20 01/20/20 History lactulose 15 g PO TID 01/20/20 01/20/20 History lorazepam 1 tab PO TID PRN 01/20/20 01/20/20 History magnesium oxide 1 tab PO BID 01/20/20 01/20/20 History melatonin 3 mg PO BEDTIME PRN 01/20/20 01/20/20 History omeprazole 20 mg PO DAILY 01/20/20 01/20/20 History potassium chloride 1 tab PO BID 01/20/20 01/20/20 History rifaximin [Xifaxan] 1 tab PO BID 01/20/20 01/20/20 History spironolactone 50 mg PO DAILY 01/20/20 01/20/20 History torsemide 20 mg PO DAILY 01/20/20 01/20/20 History Physical Exam Vital Signs: Vital Signs: Vital Signs Temp Pulse Resp BP Pulse Ox 01/20/20 08:25 85 14 120/71 01/20/20 07:51 98 F 88 18 98/39 L 96 01/20/20 07:30 78 18 100 01/20/20 06:10 98 F 78 14 120/71 01/20/20 06:05 97.9 F 100 14 105/30 L 01/20/20 05:46 98.7 F 73 12 104/35 L 01/20/20 04:00 78 105/36 L 01/20/20 01:45 70 14 95/29 L 98 01/20/20 01:03 75 16 74/20 L 100 01/20/20 00:46 98.9 F 80 24 H 99/50 L 100 Body Mass Index 26.4 Results Labs CBC & Chem 7: 01/20/20 09:11 01/20/20 09:11 Labs: Short CBC 01/20/20 01/20/20 Range/Units 01:10 09:11 WBC 11.9 H 11.8 H (4.8-10.8) X10*3/uL Hgb 7.2 L 7.6 L (12.0-16.0) g/dl Hct 21.0 L* 22.1 L (37-47) % Plt Count 57 L 57 L (160-400) X10*3/uL BMP 01/20/20 01/20/20 01/20/20 01:10 03:42 09:11 Sodium 118 L* 117 L* 121 L Potassium 4.1 4.4 4.8 Chloride 87 L 88 L 89 L Carbon Dioxide 20 L 22 25 BUN 16 16 16 Creatinine 1.12 0.93 0.83 Calcium 7.6 L 7.3 L 7.7 L Liver Function 01/20/20 01/20/20 Range/Units 01:10 09:11 Total Bilirubin 4.9 H 8.3 H (0.0-1.0) mg/dL AST 87 H 56 H (5-31) U/L ALT 31 26 (0-31) U/L Alkaline Phosphatase 141 H 123 H (39-117) U/L Albumin 2.1 L 3.1 L D (3.5-5.0) g/dL Urine 01/20/20 Range/Units 04:14 Urine Color YELLOW Urine Appearance CLEAR Urine pH 6.0 (5.0-8.0) Ur Specific [place] 1.010 (1.005-1.025) Urine Protein NEG (NEG-TRACE) MG/DL Urine Glucose (UA) NEG (NEG) MG/DL
--- NOTE | 2020-01-20 11:30 | P.HPIM_ITS ---
History of Present Illness Date of Service: 01/20/20 <MARYLU Aguilar - Last Filed: 01/20/20 11:57> Chief Complaint: shortness of breath <MARYLU Aguilar - Last Filed: 01/20/20 11:57> this is a 54-year-old female with a history of alcoholic liver cirrhosis who presented to the emergency department with shortness of breath. She reports onset of shortness of breath today. This is not associated with fever or cough. She denies associated chest pain. In the emergency department she underwent a CAT scan which showed nonspecific patchy patchy areas of ground- glass opacification. Coronavirus test was negative. She was afebrile and lab work revealed only mild leukocytosis of 11.9. She was not have significant lab abnormalities including a sodium of 117, INR 2.2, H/ H 7.2/21 and platelets its of 57 and ammonia of 113. ICU was initially called to evaluate the patient. However on repeat labs her sodium improved to 118 and then 121 was therefore decided that the patient was safe for treatment on intermediate care unit. she reports she frequently drinks fluid especially soda. She claims to have had 2 L of soda on a regular basis. she was given a dose of lactulose, vitamin K, Albumin and 1 breathing treatment. of note patient has been admitted to [facility] numerous times recently as well as [facility]. <MARYLU Aguilar - Last Filed: 01/20/20 11:57> Review of Systems Review of Systems: cardiovascular- no chest pain no palpitations pulmonary- shortness of breath, no cough constitutional- no fever no chills all other systems have been reviewed and are negative unless indicated in HPI <MARYLU Aguilar - Last Filed: 01/20/20 11:57> [facility] Medical History: Medical History (Updated 01/20/20 @ 11:44 by MARYLU Aguilar) Anxiety Chronic back pain Cirrhosis COPD (chronic obstructive pulmonary disease) Depression Diabetes 1.5, managed as type 2 Hyponatremia PTSD (post-traumatic stress disorder) <MARYLU Aguilar - Last Filed: 01/20/20 11:57> Functional capacity: independent ambulation <MARYLU Aguilar - Last Filed: 01/20/20 11:57> Pertinent family history: both mother and father had a history of hypertension <MARYLU Aguilar - Last Filed: 01/20/20 11:57> Surgical History: Surgical History (Updated 01/20/20 @ 11:44 by MARYLU Aguilar) History of cholecystectomy Previous back surgery S/P TIPS (transjugular intrahepatic portosystemic shunt) <MARYLU Aguilar - Last Filed: 01/20/20 11:57> Social History: Social History (Updated 01/20/20 @ 11:45 by MARYLU Aguilar) Household Members: Significant Other Housing: House Do you presently have visiting nurse or other home services: Yes Smoking Status: Current every day smoker Tobacco Type: Cigarette Packs Per Day: 0.25 Cigarettes Per Day: 5.0 Smoked in Last 30 Days: Yes Use of substances other than those prescribed or required for medical reasons: No Substance Use Type: Former Substance User Currently Displaying Signs/Symptoms of Drug Intoxication Withdrawal: No Any prior treatment program specific to substance use: No Have you been hit, kicked, punched, or otherwise hurt by someone within the past year? If so, by whom?: No Do you feel safe in your current relationship?: Yes Is there a partner from a previous relationship who is making you feel unsafe now?: No Are you made to feel afraid or neglected: No Advance Directives: No Advance Directives Information Provided: No Do you have thoughts of harming others: None Do you have a plan to hurt others: No Plan Recently lost weight without trying: No <MARYLU Aguilar - Last Filed: 01/20/20 11:57> Meds Allergies/Adverse reactions: Allergies Allergy/AdvReac Type Severity Reaction Status Date / Time lamotrigine [From LAMICTAL] Allergy Intermediate RASH Verified 01/20/20 00:45 amoxicillin [AMOXICILLIN] Allergy Unknown NAUSEA & Verified 01/20/20 00:45 VOMITING Iodinated Contrast Media Allergy Unknown ANAPHYLAXIS Verified 01/20/20 00:45 [CONTRAST, IV] Sulfa (Sulfonamide Allergy Unknown UNKNOWN Verified 01/20/20 00:45 Antibiotics) [SULFA (SULFONAMIDE ANTIBIOTICS)] sulfamethoxazole Allergy Unknown UNK Verified 01/20/20 00:45 [From BACTRIM] trimethoprim [From BACTRIM] Allergy Unknown UNK Verified 01/20/20 00:45 <MARYLU Aguilar - Last Filed: 01/20/20 11:57> Home medications: Home Medications Medication Instructions Recorded Confirmed Type folic acid 1 mg PO DAILY 01/20/20 01/20/20 History gabapentin 600 mg PO TID 01/20/20 01/20/20 History hydroxyzine pamoate 25 mg PO TID 01/20/20 01/20/20 History lactulose 15 g PO TID 01/20/20 01/20/20 History lorazepam 0.5 mg PO TID PRN 01/20/20 01/20/20 History magnesium oxide 400 mg PO BID 01/20/20 01/20/20 History melatonin 3 mg PO BEDTIME PRN 01/20/20 01/20/20 History omeprazole 20 mg PO BID 01/20/20 01/20/20 History potassium chloride 20 meq PO BID 01/20/20 01/20/20 History rifaximin [Xifaxan] 550 mg PO BID 01/20/20 01/20/20 History risperidone 1 mg PO BID 01/20/20 01/20/20 History spironolactone 50 mg PO DAILY 01/20/20 01/20/20 History torsemide 20 mg PO DAILY 01/20/20 01/20/20 History <MARYLU Aguilar - Last Filed: 01/20/20 11:57> Physical Exam Vital Signs and Narrative: Vital Signs: Last Vital Signs Temp 98 F 01/20/20 07:51 Pulse 84 01/20/20 10:04 Resp 14 01/20/20 10:04 BP 132/53 L 01/20/20 10:04 Pulse Ox 95 01/20/20 10:04 Body Mass Index 26.4 <MARYLU Aguilar - Last Filed: 01/20/20 11:57> Const: Other: easily arousable to verbal stimuli <MARYLU Aguilar - Last Filed: 01/20/20 11:57> Orientation/consciousness: oriented to person and oriented to place <MARYLU Aguilar Last Filed: 01/20/20 11:57> HENMT: Head: Yes normocephalic and Yes atraumatic <MARYLU Aguilar - Last Filed: 01/20/20 11:57> Eyes: Sclerae: sclerae normal <MARYLU Aguilar - Last Filed: 01/20/20 11:57> Chest: Chest palpation & inspection: normal inspection of the chest <MARYLU Aguilar - Last Filed: 01/20/20 11:57> Resp: Effort & Inspection: normal respiratory effort and no respiratory distress <MARYLU Aguilar - Last Filed: 01/20/20 11:57> Auscultation: clear to auscultation bilaterally <MARYLU Aguilar - Last Filed: 01/20/20 11:57> Cardio: Rate: regular rate <MARYLU Aguilar - Last Filed: 01/20/20 11:57> Rhythm: regular rhythm <MARYLU Aguilar - Last Filed: 01/20/20 11:57> GI: Palpation (GI): Soft to palpation and nontender <MARYLU Aguilar - Last Filed: 01/20/20 11:57> Skin: General skin exam: no rashes or lesions noted <MARYLU Aguilar - Last Filed: 01/20/20 11:57> Neuro: General: oriented to person and oriented to place <MARYLU Aguilar - Last Filed: 01/20/20 11:57> Cranial nerves: Yes CN's II-XII intact bilaterally and Yes Bilaterally intact EOM present <MARYLU Aguilar - Last Filed: 01/20/20 11:57> Motor exam (neuro): Asterixis during motor activity present <MARYLU Aguilar - Last Filed: 01/20/20 11:57> Extrem: General: Yes normal to inspection <MARYLU Aguilar - Last Filed: 01/20/20 11:57> Results Labs Labs: Laboratory Tests 01/20/20 01/20/20 01/20/20 01:10 01:10 01:10 WBC 11.9 H RBC 2.27 L Hgb 7.2 L Hct 21.0 L* MCV 92.5 MCH 31.7 MCHC 34.3 RDW 21.1 H Plt Count 57 L MPV 10.5 Immature Gran % (Auto) 0.8 H Neut % (Auto) 82.1 H Lymph % (Auto) 7.9 L [place] % (Auto) 7.8 Eos % (Auto) 1.2 Baso % (Auto) 0.2 Lymph # (Auto) 0.9 L [place] # (Auto) 0.9 Eos # (Auto) 0.1 Baso # (Auto) 0.0 Abs Immat Gran (auto) 0.10 H Absolute Neuts (auto) 9.8 H Absolute Nucleated RBC 0.000 Nucleated RBC % (auto) 0.0 Smear Tech's Comments VERIFIED PT INR Sodium 118 L* Potassium 4.1 Chloride 87 L Carbon Dioxide 20 L Anion Gap 15 BUN 16 Creatinine 1.12 Estim Creat Clear Calc 54.2 Estimated GFR 51 Random Glucose 104 Osmolality Lactic Acid Lactic Acid Fup @ 2Hr Calcium 7.6 L Phosphorus Magnesium Total Bilirubin 4.9 H AST 87 H ALT 31 Alkaline Phosphatase 141 H Ammonia 113 H Troponin I High Sens B-Natriuretic Peptide Total Protein 5.0 L Albumin 2.1 L Lipase Urine Color Urine Appearance Urine pH Ur Specific [place] Urine Protein Urine Glucose (UA) Urine Ketones Urine Blood Urine Nitrite Ur Leukocyte Esterase Urine Osmolality Stool Occult Blood Urine Opiates Screen Ur Barbiturates Screen Ur Phencyclidine Scrn Ur Amphetamines Screen U Benzodiazepines Scrn Urine Cocaine Screen U Marijuana (THC) Screen Ethyl Alcohol Coronavirus (PCR) Blood Type Antibody Screen Crossmatch 01/20/20 01/20/20 01/20/20 01:10 01:10 01:10 WBC RBC Hgb Hct MCV MCH MCHC RDW Plt Count MPV Immature Gran % (Auto) Neut % (Auto) Lymph % (Auto) [place] % (Auto) Eos % (Auto) Baso % (Auto) Lymph # (Auto) [place] # (Auto) Eos # (Auto) Baso # (Auto) Abs Immat Gran (auto) Absolute Neuts (auto) Absolute Nucleated RBC Nucleated RBC % (auto) Smear Tech's Comments PT 26.2 H INR 2.2 H Sodium Potassium Chloride Carbon Dioxide Anion Gap BUN Creatinine Estim Creat Clear Calc Estimated GFR Random Glucose Osmolality Lactic Acid 4.2 H* Lactic Acid Fup @ 2Hr Calcium Phosphorus Magnesium Total Bilirubin AST ALT Alkaline Phosphatase Ammonia Troponin I High Sens 18.4 H B-Natriuretic Peptide 71 Total Protein Albumin Lipase Urine Color Urine Appearance Urine pH Ur Specific [place] Urine Protein Urine Glucose (UA) Urine Ketones Urine Blood Urine Nitrite Ur Leukocyte Esterase Urine Osmolality Stool Occult Blood Urine Opiates Screen Ur Barbiturates Screen Ur Phencyclidine Scrn Ur Amphetamines Screen U Benzodiazepines Scrn Urine Cocaine Screen U Marijuana (THC) Screen Ethyl Alcohol Coronavirus (PCR) Blood Type Antibody Screen Crossmatch 01/20/20 01/20/20 01/20/20 01:10 01:10 01:10 WBC RBC Hgb Hct MCV MCH MCHC RDW Plt Count MPV Immature Gran % (Auto) Neut % (Auto) Lymph % (Auto) [place] % (Auto) Eos % (Auto) Baso % (Auto) Lymph # (Auto) [place] # (Auto) Eos # (Auto) Baso # (Auto) Abs Immat Gran (auto) Absolute Neuts (auto) Absolute Nucleated RBC Nucleated RBC % (auto) Smear Tech's Comments PT INR Sodium Potassium Chloride Carbon Dioxide Anion Gap BUN Creatinine Estim Creat Clear Calc Estimated GFR Random Glucose Osmolality 255 L Lactic Acid Lactic Acid Fup @ 2Hr Calcium Phosphorus Magnesium 2.0 Total Bilirubin AST ALT Alkaline Phosphatase Ammonia Troponin I High Sens B-Natriuretic Peptide Total Protein Albumin Lipase 37 Urine Color Urine Appearance Urine pH Ur Specific [place] Urine Protein Urine Glucose (UA) Urine Ketones Urine Blood Urine Nitrite Ur Leukocyte Esterase Urine Osmolality Stool Occult Blood Urine Opiates Screen Ur Barbiturates Screen Ur Phencyclidine Scrn Ur Amphetamines Screen U Benzodiazepines Scrn Urine Cocaine Screen U Marijuana (THC) Screen Ethyl Alcohol < 10 Coronavirus (PCR) Blood Type Antibody Screen Crossmatch 01/20/20 01/20/20 01/20/20 02:29 03:42 03:42 WBC RBC Hgb Hct MCV MCH MCHC RDW Plt Count MPV Immature Gran % (Auto) Neut % (Auto) Lymph % (Auto) [place] % (Auto) Eos % (Auto) Baso % (Auto) Lymph # (Auto) [place] # (Auto) Eos # (Auto) Baso # (Auto) Abs Immat Gran (auto) Absolute Neuts (auto) Absolute Nucleated RBC Nucleated RBC % (auto) Smear Tech's Comments PT INR Sodium Potassium Chloride Carbon Dioxide Anion Gap BUN Creatinine Estim Creat Clear Calc Estimated GFR Random Glucose Osmolality Lactic Acid Lactic Acid Fup @ 2Hr Calcium Phosphorus Magnesium Total Bilirubin AST ALT Alkaline Phosphatase Ammonia Troponin I High Sens B-Natriuretic Peptide Total Protein Albumin Lipase Urine Color Urine Appearance Urine pH Ur Specific [place] Urine Protein Urine Glucose (UA) Urine Ketones Urine Blood Urine Nitrite Ur Leukocyte Esterase Urine Osmolality Stool Occult Blood POS Urine Opiates Screen Ur Barbiturates Screen Ur Phencyclidine Scrn Ur Amphetamines Screen U Benzodiazepines Scrn Urine Cocaine Screen U Marijuana (THC) Screen Ethyl Alcohol Coronavirus (PCR) NEGATIVE Blood Type A Negative Antibody Screen NEGATIVE Crossmatch See Detail 01/20/20 01/20/20 01/20/20 03:42 04:14 04:14 WBC RBC Hgb Hct MCV MCH MCHC RDW Plt Count MPV Immature Gran % (Auto) Neut % (Auto) Lymph % (Auto) [place] % (Auto) Eos % (Auto) Baso % (Auto) Lymph # (Auto) [place] # (Auto) Eos # (Auto) Baso # (Auto) Abs Immat Gran (auto) Absolute Neuts (auto) Absolute Nucleated RBC Nucleated RBC % (auto) Smear Tech's Comments PT INR Sodium 117 L* Potassium 4.4 Chloride 88 L Carbon Dioxide 22 Anion Gap 11 L BUN 16 Creatinine 0.93 Estim Creat Clear Calc 65.3 Estimated GFR > 60 Random Glucose 110 Osmolality Lactic Acid Lactic Acid Fup @ 2Hr Calcium 7.3 L Phosphorus 3.1 Magnesium Total Bilirubin AST ALT Alkaline Phosphatase Ammonia Troponin I High Sens B-Natriuretic Peptide Total Protein Albumin Lipase Urine Color YELLOW Urine Appearance CLEAR Urine pH 6.0 Ur Specific [place] 1.010 Urine Protein NEG Urine Glucose (UA) NEG Urine Ketones NEG Urine Blood NEG Urine Nitrite NEG Ur Leukocyte Esterase NEG Urine Osmolality Stool Occult Blood Urine Opiates Screen Not Detected Ur Barbiturates Screen Not Detected Ur Phencyclidine Scrn Not Detected Ur Amphetamines Screen Not Detected U Benzodiazepines Scrn Not Detected Urine Cocaine Screen Not Detected U Marijuana (THC) Screen Not Detected Ethyl Alcohol Coronavirus (PCR) Blood Type Antibody Screen Crossmatch 01/20/20 01/20/20 01/20/20 04:14 04:41 09:11 WBC 11.8 H RBC 2.39 L Hgb 7.6 L Hct 22.1 L MCV 92.5 MCH 31.8 MCHC 34.4 RDW 19.5 H Plt Count 57 L MPV 10.7 Immature Gran % (Auto) 1.2 H Neut % (Auto) 83.1 H Lymph % (Auto) 7.8 L [place] % (Auto) 6.3 Eos % (Auto) 1.4 Baso % (Auto) 0.2 Lymph # (Auto) 0.9 L [place] # (Auto) 0.7 Eos # (Auto) 0.2 Baso # (Auto) 0.0 Abs Immat Gran (auto) 0.14 H Absolute Neuts (auto) 9.9 H Absolute Nucleated RBC 0.000 Nucleated RBC % (auto) 0.0 Smear Tech's Comments PT INR Sodium Potassium Chloride Carbon Dioxide Anion Gap BUN Creatinine Estim Creat Clear Calc Estimated GFR Random Glucose Osmolality Lactic Acid Lactic Acid Fup @ 2Hr 2.0 Calcium Phosphorus Magnesium Total Bilirubin AST ALT Alkaline Phosphatase Ammonia Troponin I High Sens B-Natriuretic Peptide Total Protein Albumin Lipase Urine Color Urine Appearance Urine pH Ur Specific [place] Urine Protein Urine Glucose (UA) Urine Ketones Urine Blood Urine Nitrite Ur Leukocyte Esterase Urine Osmolality 260 L Stool Occult Blood Urine Opiates Screen Ur Barbiturates Screen Ur Phencyclidine Scrn Ur Amphetamines Screen U Benzodiazepines Scrn Urine Cocaine Screen U Marijuana (THC) Screen Ethyl Alcohol Coronavirus (PCR) Blood Type Antibody Screen Crossmatch 01/20/20 09:11 WBC RBC Hgb Hct MCV MCH MCHC RDW Plt Count MPV Immature Gran % (Auto) Neut % (Auto) Lymph % (Auto) [place] % (Auto) Eos % (Auto) Baso % (Auto) Lymph # (Auto) [place] # (Auto) Eos # (Auto) Baso # (Auto) Abs Immat Gran (auto) Absolute Neuts (auto) Absolute Nucleated RBC Nucleated RBC % (auto) Smear Tech's Comments PT INR Sodium 121 L Potassium 4.8 Chloride 89 L Carbon Dioxide 25 Anion Gap 12 BUN 16 Creatinine 0.83 Estim Creat Clear Calc 73.2 Estimated GFR > 60 Random Glucose 83 Osmolality Lactic Acid Lactic Acid Fup @ 2Hr Calcium 7.7 L Phosphorus Magnesium Total Bilirubin 8.3 H AST 56 H ALT 26 Alkaline Phosphatase 123 H Ammonia Troponin I High Sens B-Natriuretic Peptide Total Protein 5.5 L Albumin 3.1 L D Lipase Urine Color Urine Appearance Urine pH Ur Specific [place] Urine Protein Urine Glucose (UA) Urine Ketones Urine Blood Urine Nitrite Ur Leukocyte Esterase Urine Osmolality Stool Occult Blood Urine Opiates Screen Ur Barbiturates Screen Ur Phencyclidine Scrn Ur Amphetamines Screen U Benzodiazepines Scrn Urine Cocaine Screen U Marijuana (THC) Screen Ethyl Alcohol Coronavirus (PCR) Blood Type Antibody Screen Crossmatch <MARYLU Aguilar - Last Filed: 01/20/20 11:57> Assessment and Plan (1) Hepatic encephalopathy: Status: Acute <MARYLU Aguilar - Last Filed: 01/20/20 11:57> (2) Hyponatremia: Status: Acute <AMRYLU Aguilar - Last Filed: 01/20/20 11:57> this is a 54-year-old female with a history of alcoholic liver cirrhosis, COPD, bipolar disorder, chronic back pain, diabetes among others and multiple admissions at [facility] who presented with shortness of breath found to have multiple lab abnormalities including hyponatremia hyponatremia acute on chronic in the setting of liver cirrhosis 117 on arrival now 121 evaluated by ICU and deemed safe for telemetry - fluid restriction - Q 4 hour chemistries - nephrology consult hepatic encephalopathy patient reports compliance with lactulose and 4 bowel movements daily however ammonia level 113 with associated asterixis. easily arousable to verbal stimuli at this time. received 1 dose of lactulose in the ED - continue home dose lactulose - monitor ammonia level lactic acidosis related to liver disease. no evidence of sepsis history of alcohol abuse denies drinking alcohol although documentation from other institutions indicate she is currently using alcohol this not appear to be in alcohol withdrawal at this time - we will monitor on [facility] alcoholic liver cirrhosis associated anemia, thrombocytopenia, coagulopathy reportedly not a candidate for transplant at this time due to alcohol use - continue Aldactone, torsemide, rifaximin anemia received 1 unit of blood in the ED - follow CBC thrombocytopenia related to liver disease - follow CBC coagulopathy - related to liver disease. INR 2.2 received 1 dose of vitamin K in the ED - follow INR diabetes - SSI, POC chronic back pain - hold gabapentin to avoid excessive sedation mood - hold Atarax, Ativan to avoid excessive sedation shortness of breath COVID negative we will consider antibiotics - p.r.n. breathing treatments DVT prophylaxis- mechanical devices code status- full code this case was discussed with <MARYLU Aguilar - Last Filed: 01/20/20 11:57> (3) Anemia: Qualifiers: Anemia type: unspecified type Qualified Code(s): D64.9 - Anemia, unspecified <MARYLU Aguilar - Last Filed: 01/20/20 11:57> Status: Acute <MARYLU Aguilar - Last Filed: 01/20/20 11:57> Date of Service: December, Addendum to H and P by Mid-level Provider I saw and examined the patient and participated in the queen portion of the E/M service. I agree with the history and exam as documented by PA. Patient with cirrhosis and presents with recurrent hyponatremia, anemia. exam: alert, has jaundice. Will admit for close sodium monitoring and fluid manamgement and work up. Otherwise, I agree with assessment and plan as outlined in the H and P. <Misael Portillo MD - Last Filed: 01/20/20 16:38>
--- NOTE | 2020-01-20 13:18 | PC.NURSE ---
REPORT GIVEN FOR [facility] ADMISSION
[2020-01-20 14:38] LABS: Glucose, Whole Blood 100 mg/dL (60-115)
[2020-01-20 15:06] LABS: Anion Gap 12 (12-20); Blood Urea Nitrogen 16 mg/dL (9-16); Calcium 7.5 mg/dL (8.4-10.2); Carbon Dioxide 24 mmol/L (22-29); Chloride 92 mmol/L (96-108); Creatinine Clr Calc Pharmacy 84.3; Estimated Glomerular Filt Rate > 60; Glucose Random 97 mg/dL (60-115); Potassium 4.9 mmol/l (3.3-5.1); Sodium 123 mmol/L (135-145)
[2020-01-20 15:15] LABS: Troponin-I High Sensitivity 19.7 ng/L (<3.5-17.0)
--- NOTE | 2020-01-20 15:58 | PC.NURSE ---
Patient c/o SOB and chest pain. 02 sat 100% on room air. Lung ma clear throughout. Shallow breaths noted, SHIVA. at bedside to evaluate patient. C/O midsternal chest pain. EKG- NSR. No new orders at this time.
[2020-01-20 16:07] LABS: Glucose, Whole Blood 94 mg/dL (60-115)
--- NOTE | 2020-01-20 16:51 | P.CONNP_ITS ---
History of Present Illness Reason for Consult Consult date: 01/20/20 Reason for consult: hypona Chief Complaint Chief complaint: SOB History of Present Illness Narrative: Poor histroian. Kate hosp at [facility] for AMS and SOB and recurrent hypoNa. Comes in with the same issues and admits to drinking lots of fluids and knows she is to avoid excess PO fluid intake. SNa 117 on adm and has incr to 121..repeat SNa pending Breathing improved now. No CP. Not on active xplant list as per [facility] PMFSH Past Medical History Medical History (Updated 01/20/20 @ 11:44 by MARYLU Aguilar) Anxiety Chronic back pain Cirrhosis COPD (chronic obstructive pulmonary disease) Depression Diabetes 1.5, managed as type 2 Hyponatremia PTSD (post-traumatic stress disorder) Functional capacity: independent ambulation Family History Pertinent family history: both mother and father had a history of hypertension Surgical History Surgical History (Updated 01/20/20 @ 11:44 by MARYLU Aguilar) History of cholecystectomy Previous back surgery S/P TIPS (transjugular intrahepatic portosystemic shunt) Social History Social History (Updated 01/20/20 @ 11:45 by MARYLU Aguilar) Household Members: Significant Other Housing: House Do you presently have visiting nurse or other home services: Yes Smoking Status: Current every day smoker Tobacco Type: Cigarette Packs Per Day: 0.25 Cigarettes Per Day: 5.0 Smoked in Last 30 Days: Yes Use of substances other than those prescribed or required for medical reasons: No Substance Use Type: Former Substance User Currently Displaying Signs/Symptoms of Drug Intoxication Withdrawal: No Any prior treatment program specific to substance use: No Have you been hit, kicked, punched, or otherwise hurt by someone within the past year? If so, by whom?: No Do you feel safe in your current relationship?: Yes Is there a partner from a previous relationship who is making you feel unsafe now?: No Are you made to feel afraid or neglected: No Advance Directives: No Advance Directives Information Provided: No Do you have thoughts of harming others: None Do you have a plan to hurt others: No Plan Recently lost weight without trying: No Meds Allergies Allergy/AdvReac Type Severity Reaction Status Date / Time lamotrigine [From LAMICTAL] Allergy Intermediate RASH Verified 01/20/20 00:45 amoxicillin [AMOXICILLIN] Allergy Unknown NAUSEA & Verified 01/20/20 00:45 VOMITING Iodinated Contrast Media Allergy Unknown ANAPHYLAXIS Verified 01/20/20 00:45 [CONTRAST, IV] Sulfa (Sulfonamide Allergy Unknown UNKNOWN Verified 01/20/20 00:45 Antibiotics) [SULFA (SULFONAMIDE ANTIBIOTICS)] sulfamethoxazole Allergy Unknown UNK Verified 01/20/20 00:45 [From BACTRIM] trimethoprim [From BACTRIM] Allergy Unknown UNK Verified 01/20/20 00:45 Home Medications Medication Instructions Recorded Confirmed Type folic acid 1 mg PO DAILY 01/20/20 01/20/20 History gabapentin 600 mg PO TID 01/20/20 01/20/20 History hydroxyzine pamoate 25 mg PO TID 01/20/20 01/20/20 History lactulose 15 g PO TID 01/20/20 01/20/20 History lorazepam 0.5 mg PO TID PRN 01/20/20 01/20/20 History magnesium oxide 400 mg PO BID 01/20/20 01/20/20 History melatonin 3 mg PO BEDTIME PRN 01/20/20 01/20/20 History omeprazole 20 mg PO BID 01/20/20 01/20/20 History potassium chloride 20 meq PO BID 01/20/20 01/20/20 History rifaximin [Xifaxan] 550 mg PO BID 01/20/20 01/20/20 History risperidone 1 mg PO BID 01/20/20 01/20/20 History spironolactone 50 mg PO DAILY 01/20/20 01/20/20 History torsemide 20 mg PO DAILY 01/20/20 01/20/20 History Physical Exam Vital Signs: Vital Signs Temp Pulse Resp BP Pulse Ox 01/20/20 15:32 98 F 98 18 114/43 L 100 01/20/20 15:27 20 114/43 L 100 01/20/20 14:10 98.1 F 96 20 134/50 L 98 01/20/20 11:44 92 16 133/50 L 95 01/20/20 10:04 84 14 132/53 L 95 01/20/20 08:25 85 14 120/71 01/20/20 07:51 98 F 88 18 98/39 L 96 01/20/20 07:30 78 18 100 01/20/20 06:10 98 F 78 14 120/71 01/20/20 06:05 97.9 F 100 14 105/30 L 01/20/20 05:46 98.7 F 73 12 104/35 L 01/20/20 04:00 78 105/36 L 01/20/20 01:45 70 14 95/29 L 98 01/20/20 01:03 75 16 74/20 L 100 01/20/20 00:46 98.9 F 80 24 H 99/50 L 100 Body Mass Index 26.4 VITAL SIGNS: Reviewed. GENERAL: Chronically ill, moderate distress. HEAD: Normocephalic/atraumatic, EYES: PERRLA, EOMI intact without pain, no nystagmus/pallor, +icterus EARS: Ext canals without abnormality, TMs non-bulging and non-erythematous NOSE: Nares patent bilateral OROPHARYNX: no oral lesions noted, posterior pharynx clear and non-erythematous without noted tonsillar enlargement/erythema/exudates NECK: Supple, no adenopathy LUNGS: Decreased breath sounds b/l. No adventitious sounds or accessory muscle use. SpO2<100> CARDIOVASCULAR: Regular rate and rhythm without noted murmurs, no JVD or lower extremity edema. ABDOMEN: Soft, non-tender, distended with bowel sounds. No fluid wave noted. No rigidity. No guarding. No palpable masses or hernias noted LIZ: no lesions or tags, soft stool in rectal vault without gross blood on fi nger and good rectal tone MUSCULOSKELETAL: No tenderness, deformities, or effusions noted on gross i nspection. EXTREMITIES: No cyanosis, clubbing or edema. SKIN: Inspection of the skin reveals no rashes, ulcerations, pallor, or petechiae, +jaundice. NEUROLOGIC: Alert and oriented x 4. Strength and sensation to light touch were grossly intact x 4. Const Other: easily arousable to verbal stimuli Orientation/consciousness: oriented to person and oriented to place [facility] Head: Yes normocephalic and Yes atraumatic Eyes Sclerae: sclerae normal Chest Chest palpation & inspection: normal inspection of the chest Resp Effort & Inspection: normal respiratory effort and no respiratory distress Auscultation: clear to auscultation bilaterally Cardio Rate: regular rate Rhythm: regular rhythm GI Palpation (GI): Soft to palpation and nontender Skin General skin exam: no rashes or lesions noted Neuro General: oriented to person and oriented to place Cranial nerves: Yes CN's II-XII intact bilaterally and Yes Bilaterally intact EOM present Motor exam (neuro): Asterixis during motor activity present Extrem General: Yes normal to inspection Results Lab Results Result Diagrams: 01/20/20 09:11 01/20/20 14:27 Lab results: Chemistry 01/20/20 01/20/20 01/20/20 01:10 03:42 09:11 Sodium 118 L* 117 L* 121 L Potassium 4.1 4.4 4.8 Carbon Dioxide 20 L 22 25 BUN 16 16 16 Creatinine 1.12 0.93 0.83 Calcium 7.6 L 7.3 L 7.7 L Phosphorus 3.1 01/20/20 14:27 Sodium 123 L Potassium 4.9 Carbon Dioxide 24 BUN 16 Creatinine 0.72 Calcium 7.5 L Phosphorus Hematology 01/20/20 01/20/20 01:10 09:11 WBC 11.9 H 11.8 H Hgb 7.2 L 7.6 L Plt Count 57 L 57 L Urinalysis 01/20/20 04:14 Urine Color YELLOW Urine Appearance CLEAR Urine pH 6.0 Ur Specific [place] 1.010 Urine Protein NEG Urine Glucose (UA) NEG Urine Ketones NEG Urine Blood NEG Urine Nitrite NEG Ur Leukocyte Esterase NEG Urine Studies 01/20/20 04:14 Urine Osmolality 260 L Assessment and Plan (1) Hepatic encephalopathy: Status: Acute (2) Hyponatremia: Status: Acute (3) Anemia: Qualifiers: Anemia type: unspecified type Qualified Code(s): D64.9 - Anemia, unspecified Status: Acute 1. Hypervol HypoNa in cirrhotic patient with recurrent hosp d/t in part to not restricting her PO fluid intake and recurrent hypoNa .SNa 118 on adm and now incr to 121 and a risk of too rapid correction if she goes on PO fluid restriction and gets diarrhe from lactulose; goal is to grad incr SNa by 4-6 meq per 24 hrs to lessen the risk of developing CPM 2. TBFOL: looks ok exam at present time 3. ESLD: not on liver xplant list per [facility] 4. Non-compliant on restricting fluid itake REC: repeat SNA and track closley as may need D5 W if starts to correct too fast; check Urine Na/osm; hold diuretics for now and reasses starting tomorrow Note repeat SNa 123 so will give gentle D5W 75 ml/hr for just 2 hrs ONLY and then repeat stat lytes and then decide on next steps to avoid too rapid cor rection of SNa..d/w Dr Rudd
[2020-01-20] MEDS: LORazepam 0.5 MG TABLET PO (17:15)
[2020-01-20] MEDS: Dextrose 5 % 1,000 ML 75 ML IVCONT (17:16)
[2020-01-20 20:20] LABS: Anion Gap 11 (12-20); Carbon Dioxide 25 mmol/L (22-29); Chloride 90 mmol/L (96-108); Sodium 121 mmol/L (135-145)
[2020-01-20 21:04] LABS: Glucose, Whole Blood 99 mg/dL (60-115)
[2020-01-20] MEDS: Potassium Chloride ER 20 MEQ TAB.ER.PRT PO (21:07)
[2020-01-20] MEDS: Gabapentin 600 MG TABLET PO (21:07)
[2020-01-20] MEDS: Lactulose 20 GM/30 ML SOLUTION 15 GM PO (21:07)
[2020-01-20] MEDS: Magnesium Oxide 400 MG TABLET PO (21:08)
[2020-01-20] MEDS: rifAXIMin 550 MG TABLET PO (21:08)
[2020-01-20] MEDS: hydrOXYzine HCL 25 MG TABLET PO (23:56)
--- NOTE | 2020-01-21 | ECG_ITS ---
Test Reason : CP Blood Pressure : / mmHG Vent. Rate : 095 BPM Atrial Rate : 095 BPM P-R Int : 138 ms QRS Dur : 082 ms QT Int : 368 ms P-R-T Axes : 037 032 028 degrees QTc Int : 462 ms Normal sinus rhythm Normal ECG When compared with ECG of 20-JAN-2020 00:57, No significant change was found Heart rate has increased Referred By: Courtney Juárez Electronically Signed By:MEE MONROY MD
[2020-01-21 01:21] LABS: Anion Gap 14 (12-20); Carbon Dioxide 22 mmol/L (22-29); Chloride 93 mmol/L (96-108); Potassium 4.7 mmol/l (3.3-5.1); Sodium 124 mmol/L (135-145)
[2020-01-21 03:37] VITALS: BP 138/54; PULSE 93; RESP 18; TEMP 36.6; O2SAT 100
[2020-01-21] MEDS: 0.9 % Sodium Chloride Flush 3 ML SYRINGE IVFLUSH ×4 (04:04→21:54)
[2020-01-21] MEDS: LORazepam 0.5 MG TABLET PO ×2 (04:53→15:54)
[2020-01-21 06:19] LABS: Basophils Percent Auto 0.2 % (0-2); Hemoglobin 8.6 g/dl (12.0-16.0); Imm Gran Abs Auto 0.03 X10*3/uL (0.00-0.03); Lymphocytes Percent Auto 9.5 % (20-40); MANUAL DIFF FLAG SCAN; PLT CLUMP 1; SCAN SMEAR FLAG 1
[2020-01-21 06:21] LABS: Eosinophils Absolute Auto 0.1 X10*3/uL (0.0-0.4); Hematocrit 24.7 % (37-47); Imm Gran Pct Auto 0.3 % (0.0-0.4); Lymphocytes Absolute Auto 0.8 X10*3/uL (1.2-4.9); Mean Corpuscular HGB Conc 34.8 g/dl (31.0-35.0); Mean Corpuscular Volume 91.8 fL (80-98); Mean Platelet Volume 10.2 fL (9.4-12.3); Monocytes Absolute Auto 0.5 X10*3/uL (0.1-1.2); Monocytes Percent Auto 6.2 % (2-11); Neutrophils Absolute Auto 7.2 X10*3/uL (2.0-8.3); Neutrophils Percent Auto 82.8 % (45-73); Red Blood Count 2.69 X10*6/uL (4.20-5.50); Red Cell Distribution Width 20.3 % (11.0-16.0); White Blood Count 8.7 X10*3/uL (4.8-10.8)
[2020-01-21 06:25] LABS: Platelet Count 68 X10*3/uL (160-400)
[2020-01-21 06:31] LABS: INTERNATIONAL NORM RATIO 2.2 (0.9-1.1); Prothrombin Time 26.4 SEC (10.8-13.0)
[2020-01-21] MEDS: oxyCODONE HCl Immed Release 5 MG TABLET PO ×2 (06:39→17:42)
[2020-01-21 06:46] LABS: Alanine Aminotransferase 33 U/L (0-31); Albumin Level 2.8 g/dL (3.5-5.0); Alkaline Phosphatase 103 U/L (39-117); Aspartate Amino Transferase 76 U/L (5-31); Bilirubin Direct 6.4 mg/dL (0.0-0.5); Bilirubin Total 14.1 mg/dL (0.0-1.0); Total Protein 5.2 g/dL (6.5-8.0)
[2020-01-21 06:49] LABS: Ammonia 74 umol/L (13-55)
[2020-01-21 06:56] LABS: SLIDE REVIEW VERIFIED
[2020-01-21 07:31] LABS: Glucose, Whole Blood 93 mg/dL (60-115)
[2020-01-21 07:43] VITALS: BP 96/50; PULSE 80; RESP 18; TEMP 37.3; O2SAT 100
[2020-01-21] MEDS: risperiDONE 1 MG TABLET PO (08:08)
[2020-01-21] MEDS: Gabapentin 600 MG TABLET PO ×3 (08:08→21:54)
[2020-01-21] MEDS: Magnesium Oxide 400 MG TABLET PO ×2 (08:08→21:54)
[2020-01-21] MEDS: rifAXIMin 550 MG TABLET PO ×2 (08:08→21:54)
[2020-01-21] MEDS: Folic Acid 1 MG TABLET PO (08:08)
[2020-01-21] MEDS: Omeprazole 20 MG CAPSULE.DR PO (08:08)
[2020-01-21] MEDS: Potassium Chloride ER 20 MEQ TAB.ER.PRT PO ×2 (08:08→21:54)
[2020-01-21] MEDS: hydrOXYzine HCL 25 MG TABLET PO ×3 (08:08→21:54)
[2020-01-21] MEDS: Lactulose 20 GM/30 ML SOLUTION 15 GM PO ×3 (08:09→21:54)
[2020-01-21 08:43] VITALS: BP 115/54; PULSE 60
[2020-01-21 08:53] LABS: Blood Urea Nitrogen 15 mg/dL (9-16); Calcium 7.9 mg/dL (8.4-10.2); Creatinine Clr Calc Pharmacy 94.9; Estimated Glomerular Filt Rate > 60; Glucose Random 100 mg/dL (60-115)
--- NOTE | 2020-01-21 10:51 | HO.PM.IMPN ---
Subjective Subjective Date of Service: 01/21/20 Interval History: Seen in f/u for hyponatremia, hepatic encephalopathy. She got Ativan this morning and as result is more somnolent but once aroused is alert, hemodynamically stable. Review of Systems Gen: no fever Heent: +jaundice Neuro: no confusion Physical Exam Vital Signs: Vital Signs: Vital Signs Temp Pulse Resp BP Pulse Ox 01/21/20 08:43 60 115/54 L 01/21/20 07:43 99.2 F 80 18 96/50 L 100 01/21/20 03:37 97.8 F 93 18 138/54 L 100 01/20/20 23:39 97.6 F 90 20 123/62 100 01/20/20 20:00 97.7 F 92 104/43 L 100 01/20/20 15:32 98 F 98 18 114/43 L 100 01/20/20 15:27 20 114/43 L 100 01/20/20 14:10 98.1 F 96 20 134/50 L 98 01/20/20 11:44 92 16 133/50 L 95 Body Mass Index 26.4 Const: Other: easily arousable to verbal stimuli Orientation/consciousness: oriented to person, oriented to place and oriented to time HENMT: Head: Yes normocephalic and Yes atraumatic Eyes: Sclerae: scleral abnormal (icteris) Chest: Chest palpation & inspection: normal inspection of the chest Resp: Effort & Inspection: normal respiratory effort and no respiratory distress Auscultation: clear to auscultation bilaterally Cardio: Rate: regular rate Rhythm: regular rhythm GI: Palpation (GI): Soft to palpation and nontender Skin: General skin exam: no rashes or lesions noted Neuro: General: oriented to person, oriented to place and oriented to time Cranial nerves: Yes CN's II-XII intact bilaterally and Yes Bilaterally intact EOM present Motor exam (neuro): Asterixis during motor activity present Extrem: General: Yes normal to inspection Objective Data Current Medications Generic Name Dose Route Start Last Admin Trade Name Freq PRN Reason Stop Dose Admin Albuterol Sulfate 2.5 mg 01/20/20 12:57 Albuterol Sulfate (0.083%) 2.5 Mg/3 Ml Vial.Neb INHALE Q4H PRN shortness of breath Folic Acid 1 mg 01/21/20 09:00 01/21/20 08:08 Folic Acid 1 Mg Tablet PO 1 mg DAILY [facility] Administration Gabapentin 600 mg 01/20/20 21:00 01/21/20 08:08 Gabapentin 600 Mg Tablet PO 600 mg TID [facility] Administration Hydroxyzine HCl 25 mg 01/20/20 21:00 01/21/20 08:08 Hydroxyzine Hcl 25 Mg Tablet PO 25 mg TID [facility] Administration Insulin Human Lispro 0 unit 01/20/20 12:57 01/21/20 08:09 Insulin Lispro 100 Unit/Ml 3 Ml Vial SUBCUT 01/21/20 12:58 Not Given QIDACHS [facility] Protocol Lactulose 15 gm 01/20/20 15:00 01/21/20 08:09 Lactulose 20 Gm/30 Ml Solution PO 15 gm TID [facility] Administration Lorazepam 0.5 mg 01/20/20 16:48 01/21/20 04:53 Lorazepam 0.5 Mg Tablet PO 0.5 mg TID PRN Administration Anxiety Magnesium Oxide 400 mg 01/20/20 21:00 01/21/20 08:08 Magnesium Oxide 400 Mg Tablet PO 400 mg BID [facility] Administration Melatonin 3 mg 01/20/20 12:57 Melatonin 3 Mg Tablet PO BEDTIME PRN Sleep Omeprazole 20 mg 01/21/20 09:00 01/21/20 08:08 Omeprazole 20 Mg Capsule.Dr PO 20 mg DAILY [facility] Administration Potassium Chloride 20 meq 01/20/20 21:00 01/21/20 08:08 Potassium Chloride Er 20 Meq Tab.Er.Prt PO 20 meq BID [facility] Administration Rifaximin 550 mg 01/20/20 21:00 01/21/20 08:08 Rifaximin 550 Mg Tablet PO 550 mg BID [facility] Administration Risperidone 1 mg 01/20/20 21:00 01/21/20 08:08 Risperidone 1 Mg Tablet PO 1 mg BID [facility] Administration Sodium Chloride 3 ml 01/20/20 16:00 01/21/20 08:09 0.9 % Sodium Chloride Flush 3 Ml Syringe IVFLUSH 3 ml QSHIFT [facility] Administration Labs CBC & Chem 7: 01/21/20 05:52 01/21/20 00:34 Microbiology Microbiology Results: Microbiology 01/20/20 02:29 Blood - Venous Blood Culture - Preliminary No growth after 24 hours. 01/20/20 01:16 Blood - Venous Blood Culture - Preliminary No growth after 24 hours. Assessment and Plan (1) Hepatic encephalopathy: Status: Acute (2) Hyponatremia: Status: Acute (3) Anemia: Status: Acute Assessment and Plan: 54-year-old female with a history of alcoholic liver cirrhosis, COPD, bipolar disorder, chronic back pain, diabetes among others and multiple admissions at [facility] who presented with shortness of breath found to have multiple lab abnormalities including hyponatremia hyponatremia--acute on chronic due to chronic liver failure/cirrhosis 117 on arrival now 124 -continue fluid restriction and avoid rapid correction -Nephrology is guiding us with therapy -May need salt tabs hepatic encephalopathy--resolving, oriented. Somnolent this morning due to Ativan. Ammonia is down to 74 from 113 -continue lactulose, rifaximin lactic acidosis related to liver disease. no evidence of sepsis history of alcohol abuse denies drinking alcohol although documentation from other institutions indicate she is currently using alcohol this not appear to be in alcohol withdrawal at this time - we will monitor on [facility] alcoholic liver cirrhosis associated anemia, thrombocytopenia, coagulopathy reportedly not a candidate for transplant at this time due to alcohol use - continue Aldactone, torsemide, rifaximin anemia received 1 unit of blood in the ED - H/H is better thrombocytopenia related to liver disease - follow CBC coagulopathy - related to liver disease. INR 2.2 received 1 dose of vitamin K in the ED - follow INR -coumdin 5 daily x 3 days diabetes - SSI, POC chronic back pain - continue gabapentin, avoid if excessive sedation mood - Atarax, Ativan, to avoid if excessive sedation shortness of breath COVID negative we will consider antibiotics - p.r.n. breathing treatments
[2020-01-21 11:13] VITALS: BP 108/53; PULSE 92; RESP 18; TEMP 37.1; O2SAT 100
[2020-01-21 11:50] LABS: Anion Gap 15 (12-20); Blood Urea Nitrogen 14 mg/dL (9-16); Calcium 8.4 mg/dL (8.4-10.2); Carbon Dioxide 23 mmol/L (22-29); Chloride 94 mmol/L (96-108); Creatinine Clr Calc Pharmacy 90.6; Estimated Glomerular Filt Rate > 60; Glucose Random 77 mg/dL (60-115); Potassium 4.7 mmol/l (3.3-5.1); Sodium 127 mmol/L (135-145)
[2020-01-21 11:57] LABS: Glucose, Whole Blood 87 mg/dL (60-115)
--- NOTE | 2020-01-21 12:28 | PM.PNNEP ---
Subjective Subjective Interval history: Seen in f/u for hyponatremia, hepatic encephalopathy. She got Ativan again this morning and as result is more somnolent but once aroused is alert, hemodynamically stable. Physical Exam Vital Signs: Vital Signs: Vital Signs Temp Pulse Resp BP Pulse Ox 01/21/20 11:13 98.8 F 92 18 108/53 L 100 01/21/20 08:43 60 115/54 L 01/21/20 07:43 99.2 F 80 18 96/50 L 100 01/21/20 03:37 97.8 F 93 18 138/54 L 100 01/20/20 23:39 97.6 F 90 20 123/62 100 01/20/20 20:00 97.7 F 92 104/43 L 100 01/20/20 15:32 98 F 98 18 114/43 L 100 01/20/20 15:27 20 114/43 L 100 01/20/20 14:10 98.1 F 96 20 134/50 L 98 Body Mass Index 26.4 VITAL SIGNS: Reviewed. GENERAL: Chronically ill, moderate distress. HEAD: Normocephalic/atraumatic, EYES: PERRLA, EOMI intact without pain, no nystagmus/pallor, +icterus EARS: Ext canals without abnormality, TMs non-bulging and non-erythematous NOSE: Nares patent bilateral OROPHARYNX: no oral lesions noted, posterior pharynx clear and non-erythematous without noted tonsillar enlargement/erythema/exudates NECK: Supple, no adenopathy LUNGS: Decreased breath sounds b/l. No adventitious sounds or accessory muscle use. SpO2<100> CARDIOVASCULAR: Regular rate and rhythm without noted murmurs, no JVD or lower extremity edema. ABDOMEN: Soft, non-tender, distended with bowel sounds. No fluid wave noted. No rigidity. No guarding. No palpable masses or hernias noted LIZ: no lesions or tags, soft stool in rectal vault without gross blood on finger and good rectal tone MUSCULOSKELETAL: No tenderness, deformities, or effusions noted on gross inspection. EXTREMITIES: No cyanosis, clubbing or edema. SKIN: Inspection of the skin reveals no rashes, ulcerations, pallor, or petechiae, +jaundice. NEUROLOGIC: Alert and oriented x 4. Strength and sensation to light touch were grossly intact x 4. Const: Other: easily arousable to verbal stimuli Orientation/consciousness: oriented to person and oriented to place HENMT: Head: Yes normocephalic and Yes atraumatic Eyes: Sclerae: sclerae normal Chest: Chest palpation & inspection: normal inspection of the chest Resp: Effort & Inspection: normal respiratory effort and no respiratory distress Auscultation: clear to auscultation bilaterally Cardio: Rate: regular rate Rhythm: regular rhythm GI: Palpation (GI): Soft to palpation and nontender Skin: General skin exam: no rashes or lesions noted Neuro: General: oriented to person and oriented to place Cranial nerves: Yes CN's II-XII intact bilaterally and Yes Bilaterally intact EOM present Motor exam (neuro): Asterixis during motor activity present Extrem: General: Yes normal to inspection Assessment & Plan Assessment and plan (1) Hepatic encephalopathy: Status: Acute (2) Hyponatremia: Status: Acute (3) Anemia: Status: Acute Assessment and Plan: 1. Hypervol HypoNa in cirrhotic patient with recurrent hosp d/t in part to not restricting her PO fluid intake and recurrent hypoNa .SNa 118 cont incr SNa to 123 last nite and now 127 this am and still at risk of too rapid correction if she goes on PO fluid restriction and gets diarrhe from lactulose; goal is to grad incr SNa by 4-6 meq per 24 hrs to lessen the risk of developing CPM 2. TBFOL: looks ok exam at present time 3. ESLD: not on liver xplant list per [facility] 4. Non-compliant on restricting fluid itake REC: repeat SNA stat and may gentle D5W if cont to incr and track closley as may need D5 W if starts to correct too fast; recheck Urine Na/osm Time Spent With Patient Time: Total time spent is greater than 50% in coordination of care (as documented) at patient's floor/unit and/or counseling patient:
[2020-01-21 13:03] LABS: Anion Gap 11 (12-20); Carbon Dioxide 25 mmol/L (22-29); Chloride 96 mmol/L (96-108); Potassium 5.1 mmol/l (3.3-5.1); Sodium 127 mmol/L (135-145)
[2020-01-21 13:27] LABS: Pt Ventilation O2% ROOM AIR
[2020-01-21 13:28] LABS: ABG PCO2 33 mmhg (32-45); HCO3 ABG 24 mmol/l (22-26); Oxygen Saturation ABG 97.1 %; PO2 ABG 86 mmhg (83-108); pH ABG 7.49 (7.35-7.45)
[2020-01-21 13:29] LABS: Blood Gas Serial # 5396
[2020-01-21 14:16] LABS: Anion Gap 10 (12-20); Blood Urea Nitrogen 15 mg/dL (9-16); Calcium 8.2 mg/dL (8.4-10.2); Carbon Dioxide 25 mmol/L (22-29); Chloride 96 mmol/L (96-108); Creatinine Clr Calc Pharmacy 80.9; Estimated Glomerular Filt Rate > 60; Glucose Random 82 mg/dL (60-115); Potassium 5.3 mmol/l (3.3-5.1); Sodium 126 mmol/L (135-145)
[2020-01-21 15:13] VITALS: BP 93/53; PULSE 93; RESP 18; TEMP 36.9; O2SAT 100
--- NOTE | 2020-01-21 15:44 | MHC.CM.PN ---
IMM 01/21/20 Female 54 DX SOB. She lives with B.F.. She states that she is independent ADLs. She uses a walker prn. Requested copy HCP. DP home with [facility]. Patient will likely require assist w transport.
[2020-01-21 16:32] LABS: Glucose, Whole Blood 147 mg/dL (60-115)
[2020-01-21 17:49] LABS: Anion Gap 11 (12-20); Blood Urea Nitrogen 14 mg/dL (9-16); Calcium 8.4 mg/dL (8.4-10.2); Carbon Dioxide 22 mmol/L (22-29); Chloride 98 mmol/L (96-108); Creatinine Clr Calc Pharmacy 101.2; Estimated Glomerular Filt Rate > 60; Glucose Random 104 mg/dL (60-115); Potassium 5.1 mmol/l (3.3-5.1); Sodium 126 mmol/L (135-145)
[2020-01-21 19:17] VITALS: BP 91/45; PULSE 82; RESP 18; TEMP 36.9; O2SAT 100
[2020-01-21 20:23] LABS: Anion Gap 11 (12-20); Carbon Dioxide 23 mmol/L (22-29); Chloride 97 mmol/L (96-108); Sodium 126 mmol/L (135-145)
[2020-01-21 20:26] LABS: Anion Gap 11 (12-20); Blood Urea Nitrogen 14 mg/dL (9-16); Calcium 8.4 mg/dL (8.4-10.2); Carbon Dioxide 24 mmol/L (22-29); Chloride 97 mmol/L (96-108); Creatinine Clr Calc Pharmacy 80.9; Estimated Glomerular Filt Rate > 60; Glucose Random 109 mg/dL (60-115); Potassium 4.9 mmol/l (3.3-5.1); Sodium 127 mmol/L (135-145)
[2020-01-21 20:37] LABS: Glucose, Whole Blood 108 mg/dL (60-115)
[2020-01-22] VITALS (7 sets, daily range): BP systolic 99–145; BP diastolic 47–70; PULSE 76–93; RESP 18–20; TEMP 36.6–37.2; O2SAT 96–100
[2020-01-22 02:00] LABS: Anion Gap 11 (12-20); Blood Urea Nitrogen 16 mg/dL (9-16); Calcium 8.3 mg/dL (8.4-10.2); Carbon Dioxide 23 mmol/L (22-29); Chloride 98 mmol/L (96-108); Creatinine Clr Calc Pharmacy 83.2; Estimated Glomerular Filt Rate > 60; Glucose Random 96 mg/dL (60-115); Potassium 5.4 mmol/l (3.3-5.1); Sodium 127 mmol/L (135-145)
[2020-01-22] MEDS: LORazepam 0.5 MG TABLET PO ×3 (05:41→23:15)
[2020-01-22 06:12] LABS: Anion Gap 13 (12-20); Blood Urea Nitrogen 15 mg/dL (9-16); Calcium 8.2 mg/dL (8.4-10.2); Carbon Dioxide 20 mmol/L (22-29); Chloride 99 mmol/L (96-108); Creatinine Clr Calc Pharmacy 80.9; Estimated Glomerular Filt Rate > 60; Glucose Random 146 mg/dL (60-115); Potassium 4.6 mmol/l (3.3-5.1); Sodium 127 mmol/L (135-145)
[2020-01-22 07:32] LABS: Glucose, Whole Blood 104 mg/dL (60-115)
[2020-01-22] MEDS: Folic Acid 1 MG TABLET PO (08:16)
[2020-01-22] MEDS: rifAXIMin 550 MG TABLET PO ×2 (08:16→21:45)
[2020-01-22] MEDS: Potassium Chloride ER 20 MEQ TAB.ER.PRT PO ×2 (08:16→21:46)
[2020-01-22] MEDS: hydrOXYzine HCL 25 MG TABLET PO ×3 (08:16→21:46)
[2020-01-22] MEDS: Gabapentin 600 MG TABLET PO ×3 (08:16→21:46)
[2020-01-22] MEDS: Lactulose 20 GM/30 ML SOLUTION 15 GM PO ×3 (08:16→21:46)
[2020-01-22] MEDS: oxyCODONE HCl Immed Release 5 MG TABLET PO (08:16)
[2020-01-22] MEDS: Magnesium Oxide 400 MG TABLET PO ×2 (08:16→21:46)
[2020-01-22] MEDS: Omeprazole 20 MG CAPSULE.DR PO (08:17)
[2020-01-22] MEDS: 0.9 % Sodium Chloride Flush 3 ML SYRINGE IVFLUSH ×3 (08:22→21:48)
[2020-01-22 09:05] LABS: Mean Corpuscular HGB Conc 33.3 g/dl (31.0-35.0); Mean Corpuscular Hemoglobin 31.5 pg (27.0-33.0); Mean Corpuscular Volume 94.5 fL (80-98); Mean Platelet Volume 10.5 fL (9.4-12.3); Red Blood Count 2.54 X10*6/uL (4.20-5.50); Red Cell Distribution Width 20.8 % (11.0-16.0); White Blood Count 7.2 X10*3/uL (4.8-10.8)
[2020-01-22 09:06] LABS: Platelet Count 78 X10*3/uL (160-400)
[2020-01-22 09:21] LABS: Ammonia 85 umol/L (13-55)
[2020-01-22 09:45] LABS: Alanine Aminotransferase 45 U/L (0-31); Albumin Level 2.7 g/dL (3.5-5.0); Alkaline Phosphatase 108 U/L (39-117); Anion Gap 12 (12-20); Aspartate Amino Transferase 108 U/L (5-31); Bilirubin Total 9.9 mg/dL (0.0-1.0); Blood Urea Nitrogen 13 mg/dL (9-16); Calcium 8.8 mg/dL (8.4-10.2); Carbon Dioxide 24 mmol/L (22-29); Chloride 97 mmol/L (96-108); Creatinine Clr Calc Pharmacy 83.2; Estimated Glomerular Filt Rate > 60; Glucose Random 97 mg/dL (60-115); Sodium 128 mmol/L (135-145); Total Protein 5.3 g/dL (6.5-8.0)
--- NOTE | 2020-01-22 10:02 | P.PNIM_ITS ---
Subjective Subjective Date of Service: 01/22/20 Interval History: Seen in f/u for hyponatremia, hepatic encephalopathy. She is francine this morning and alert, not confused Review of Systems Gen: no fever Resp: no sob, no cough CV: no chest, no SHANNON, no leg edema GI: No n/v, no abd pain Neuro: No confusion Physical Exam Vital Signs: Vital Signs: Last Vital Signs Temp 97.8 F 01/22/20 07:51 Pulse 92 01/22/20 07:51 Resp 18 01/22/20 07:51 BP 99/47 L 01/22/20 07:51 Pulse Ox 100 01/22/20 07:51 Body Mass Index 26.4 General: AO X 3, no acute distress HEENT: Sclera icteris Resp: CTA bilateral CVS: S1,S2,RRR GI: +BS, NT, no distention Skin: No rash Neuro: motor grossly intact Psych: appropriate affect Objective Data Current Medications Generic Name Dose Route Start Last Admin Trade Name Freq PRN Reason Stop Dose Admin Albuterol Sulfate 2.5 mg 01/20/20 12:57 Albuterol Sulfate (0.083%) 2.5 Mg/3 Ml Vial.Neb INHALE Q4H PRN shortness of breath Folic Acid 1 mg 01/21/20 09:00 01/22/20 08:16 Folic Acid 1 Mg Tablet PO 1 mg DAILY [facility] Administration Gabapentin 600 mg 01/20/20 21:00 01/22/20 08:16 Gabapentin 600 Mg Tablet PO 600 mg TID [facility] Administration Hydroxyzine HCl 25 mg 01/20/20 21:00 01/22/20 08:16 Hydroxyzine Hcl 25 Mg Tablet PO 25 mg TID [facility] Administration Lactulose 15 gm 01/20/20 15:00 01/22/20 08:16 Lactulose 20 Gm/30 Ml Solution PO 15 gm TID [facility] Administration Lorazepam 0.5 mg 01/20/20 16:48 01/22/20 05:41 Lorazepam 0.5 Mg Tablet PO 0.5 mg TID PRN Administration Anxiety Magnesium Oxide 400 mg 01/20/20 21:00 01/22/20 08:16 Magnesium Oxide 400 Mg Tablet PO 400 mg BID [facility] Administration Melatonin 3 mg 01/20/20 12:57 Melatonin 3 Mg Tablet PO BEDTIME PRN Sleep Omeprazole 20 mg 01/21/20 09:00 01/22/20 08:17 Omeprazole 20 Mg Capsule.Dr PO 20 mg DAILY [facility] Administration Oxycodone HCl 5 mg 01/21/20 17:26 01/22/20 08:16 Oxycodone Hcl Immed Release 5 Mg Tablet PO 5 mg Q6H PRN Administration Pain, Severe (Pain Scale 7-10) Potassium Chloride 20 meq 01/20/20 21:00 01/22/20 08:16 Potassium Chloride Er 20 Meq Tab.Er.Prt PO 20 meq BID [facility] Administration Rifaximin 550 mg 01/20/20 21:00 01/22/20 08:16 Rifaximin 550 Mg Tablet PO 550 mg BID [facility] Administration Risperidone 1 mg 01/20/20 21:00 01/21/20 21:59 Risperidone 1 Mg Tablet PO Not Given BID [facility] Sodium Chloride 3 ml 01/20/20 16:00 01/22/20 08:22 0.9 % Sodium Chloride Flush 3 Ml Syringe IVFLUSH 3 ml QSHIFT [facility] Administration Labs CBC & Chem 7: 01/22/20 08:39 01/22/20 08:39 Labs: ammonia 88 INR 2.2 Microbiology Microbiology Results: Microbiology 01/20/20 02:29 Blood - Venous Blood Culture - Preliminary No growth after 48 hours. 01/20/20 01:16 Blood - Venous Blood Culture - Preliminary No growth after 48 hours. Assessment and Plan (1) Hepatic encephalopathy: Status: Acute (2) Hyponatremia: Status: Acute (3) Anemia: Status: Acute Assessment and Plan: 54-year-old female with a history of alcoholic liver cirrhosis, COPD, bipolar disorder, chronic back pain, diabetes among others and multiple admissions at [facility] who presented with shortness of breath found to have multiple lab abnormalities including hyponatremia hyponatremia--acute on chronic due to chronic liver failure/cirrhosis 117 on admission, and today 128 well within her baseline -continue fluid restriction and avoid rapid correction -Nephrology is guiding us with therapy -May need salt tabs hepatic encephalopathy--resolving, oriented x3. Ammonia is slightly higher today, continue Lactulose, rifaximin lactic acidosis related to liver disease. no evidence of sepsis history of alcohol abuse denies drinking alcohol although documentation from other institutions indicate she is currently using alcohol this not appear to be in alcohol withdrawal at this time - we will monitor on [facility] -Should enrol in liver transplant service alcoholic liver cirrhosis associated anemia, thrombocytopenia, coagulopathy reportedly not a candidate for transplant at this time due to alcohol use - continue Aldactone, torsemide, rifaximin anemia received 1 unit of blood in the ED on 01/19 - H/H is better thrombocytopenia related to liver disease - follow CBC coagulopathy - related to liver disease. INR 2.2 received 1 dose of vitamin K in the ED - follow INR -coumdin 5 daily x 3 days diabetes - SSI, POC chronic back pain - continue gabapentin, avoid if excessive sedation mood - Atarax, Ativan, to avoid if excessive sedation shortness of breath COVID negative we will consider antibiotics - p.r.n. breathing treatments
--- NOTE | 2020-01-22 11:07 | PM.PNNEP ---
Subjective Subjective Interval history: Seen in f/u for hyponatremia, hepatic encephalopathy. She is sleepy htis am Physical Exam Vital Signs: Vital Signs: Last Vital Signs Temp 97.8 F 01/22/20 07:51 Pulse 92 01/22/20 07:51 Resp 18 01/22/20 07:51 BP 99/47 L 01/22/20 07:51 Pulse Ox 100 01/22/20 07:51 Body Mass Index 26.4 VITAL SIGNS: Reviewed. GENERAL: Chronically ill, moderate distress. HEAD: Normocephalic/atraumatic, EYES: PERRLA, EOMI intact without pain, no nystagmus/pallor, +icterus EARS: Ext canals without abnormality, TMs non-bulging and non-erythematous NOSE: Nares patent bilateral OROPHARYNX: no oral lesions noted, posterior pharynx clear and non-erythematous without noted tonsillar enlargement/erythema/exudates NECK: Supple, no adenopathy LUNGS: Decreased breath sounds b/l. No adventitious sounds or accessory muscle use. SpO2<100> CARDIOVASCULAR: Regular rate and rhythm without noted murmurs, no JVD or lower extremity edema. ABDOMEN: Soft, non-tender, distended with bowel sounds. No fluid wave noted. No rigidity. No guarding. No palpable masses or hernias noted LIZ: no lesions or tags, soft stool in rectal vault without gross blood on finger and good rectal tone MUSCULOSKELETAL: No tenderness, deformities, or effusions noted on gross inspection. EXTREMITIES: No cyanosis, clubbing or edema. SKIN: Inspection of the skin reveals no rashes, ulcerations, pallor, or petechiae, +jaundice. NEUROLOGIC: Alert and oriented x 4. Strength and sensation to light touch were grossly intact x 4. Const: Other: easily arousable to verbal stimuli Orientation/consciousness: oriented to person and oriented to place HENMT: Head: Yes normocephalic and Yes atraumatic Eyes: Sclerae: sclerae normal Chest: Chest palpation & inspection: normal inspection of the chest Resp: Effort & Inspection: normal respiratory effort and no respiratory distress Auscultation: clear to auscultation bilaterally Cardio: Rate: regular rate Rhythm: regular rhythm GI: Palpation (GI): Soft to palpation and nontender Skin: General skin exam: no rashes or lesions noted Neuro: General: oriented to person and oriented to place Cranial nerves: Yes CN's II-XII intact bilaterally and Yes Bilaterally intact EOM present Motor exam (neuro): Asterixis during motor activity present Extrem: General: Yes normal to inspection Assessment & Plan Assessment and plan (1) Hepatic encephalopathy: Status: Acute (2) Hyponatremia: Status: Acute (3) Anemia: Status: Acute Assessment and Plan: 1. Hypervol HypoNa in cirrhotic patient with recurrent hosp d/t in part to PT not restricting her PO fluid intake and recurrent hypoNa . SNa 118 on adm and grad incr over past 48 hrs and now 128 2. TBFOL: looks ok exam at present time..but at risk for fluid retention 3. ESLD: not on liver xplant list per [facility] 4. Non-compliant on restricting fluid itake REC: r/s torsemid and aldactone; cont po fluid restriction and track SNa daily; goal is to maintain SNa > 128...may need to add PO NaCL vandana when she gets d/c'd to try to avoid drop in SNa when she starts to drink too much fluid Time Spent With Patient Time: Total time spent is greater than 50% in coordination of care (as documented) at patient's floor/unit and/or counseling patient:
--- NOTE | 2020-01-22 11:53 | MHC.CM.PN ---
per rounds pt will; be here over the weekend plan remanins home no servceis
[2020-01-22 12:01] LABS: Glucose, Whole Blood 102 mg/dL (60-115)
[2020-01-22] MEDS: Phytonadione (Vit K1) Oral 10 MG/ML AMPUL 5 MG PO (13:15)
[2020-01-22 14:53] LABS: Anion Gap 10 (12-20); Blood Urea Nitrogen 13 mg/dL (9-16); Calcium 8.3 mg/dL (8.4-10.2); Carbon Dioxide 23 mmol/L (22-29); Chloride 99 mmol/L (96-108); Creatinine Clr Calc Pharmacy 75.9; Estimated Glomerular Filt Rate > 60; Glucose Random 137 mg/dL (60-115); Sodium 127 mmol/L (135-145)
[2020-01-22 16:52] LABS: Glucose, Whole Blood 113 mg/dL (60-115)
[2020-01-22 20:51] LABS: Glucose, Whole Blood 172 mg/dL (60-115)
[2020-01-22] MEDS: risperiDONE 1 MG TABLET PO (21:46)
[2020-01-23] VITALS (7 sets, daily range): BP systolic 109–129; BP diastolic 51–73; PULSE 76–91; RESP 18–22; TEMP 36.5–37.1; O2SAT 99–100
[2020-01-23] MEDS: oxyCODONE HCl Immed Release 5 MG TABLET PO (01:45)
[2020-01-23 07:40] LABS: Glucose, Whole Blood 94 mg/dL (60-115)
[2020-01-23] MEDS: Lactulose 20 GM/30 ML SOLUTION 15 GM PO ×3 (08:55→21:50)
[2020-01-23] MEDS: Potassium Chloride ER 20 MEQ TAB.ER.PRT PO ×2 (08:55→21:50)
[2020-01-23] MEDS: Magnesium Oxide 400 MG TABLET PO ×2 (08:55→21:50)
[2020-01-23] MEDS: Phytonadione (Vit K1) Oral 10 MG/ML AMPUL 5 MG PO (08:55)
[2020-01-23] MEDS: Gabapentin 600 MG TABLET PO ×3 (08:56→21:50)
[2020-01-23] MEDS: rifAXIMin 550 MG TABLET PO ×2 (08:56→21:50)
[2020-01-23] MEDS: Folic Acid 1 MG TABLET PO (08:56)
[2020-01-23] MEDS: Omeprazole 20 MG CAPSULE.DR PO (08:56)
[2020-01-23] MEDS: 0.9 % Sodium Chloride Flush 3 ML SYRINGE IVFLUSH ×3 (08:56→23:55)
[2020-01-23] MEDS: risperiDONE 1 MG TABLET PO ×2 (08:56→21:50)
[2020-01-23] MEDS: hydrOXYzine HCL 25 MG TABLET PO ×3 (08:56→21:49)
--- NOTE | 2020-01-23 10:37 | P.PNIM_ITS ---
Subjective Subjective Date of Service: 01/23/20 Interval History: Seen in f/u for hyponatremia, hepatic encephalopathy. She is more alert today, yet seems a bit off Physical Exam Vital Signs: Vital Signs: Last Vital Signs Temp 98.5 F 01/23/20 07:36 Pulse 79 01/23/20 07:36 Resp 18 01/23/20 07:36 BP 126/58 L 01/23/20 07:36 Pulse Ox 100 01/23/20 07:36 Body Mass Index 26.4 General: AO X 2, no acute distress HEENT: Sclera icteris Resp: CTA bilateral CVS: S1,S2,RRR GI: +BS, NT, no distention Skin: No rash Neuro: motor grossly intact Psych: appropriate affect Objective Data Current Medications Generic Name Dose Route Start Last Admin Trade Name Freq PRN Reason Stop Dose Admin Albuterol Sulfate 2.5 mg 01/20/20 12:57 Albuterol Sulfate (0.083%) 2.5 Mg/3 Ml Vial.Neb INHALE Q4H PRN shortness of breath Folic Acid 1 mg 01/21/20 09:00 01/23/20 08:56 Folic Acid 1 Mg Tablet PO 1 mg DAILY LILLI Administration Gabapentin 600 mg 01/20/20 21:00 01/23/20 08:56 Gabapentin 600 Mg Tablet PO 600 mg TID LILLI Administration Hydroxyzine HCl 25 mg 01/20/20 21:00 01/23/20 08:56 Hydroxyzine Hcl 25 Mg Tablet PO 25 mg TID LILLI Administration Lactulose 15 gm 01/20/20 15:00 01/23/20 08:55 Lactulose 20 Gm/30 Ml Solution PO 15 gm TID LILLI Administration Lorazepam 0.5 mg 01/20/20 16:48 01/22/20 23:15 Lorazepam 0.5 Mg Tablet PO 0.5 mg TID PRN Administration Anxiety Magnesium Oxide 400 mg 01/20/20 21:00 01/23/20 08:55 Magnesium Oxide 400 Mg Tablet PO 400 mg BID LILLI Administration Melatonin 3 mg 01/20/20 12:57 Melatonin 3 Mg Tablet PO BEDTIME PRN Sleep Omeprazole 20 mg 01/21/20 09:00 01/23/20 08:56 Omeprazole 20 Mg Capsule.Dr PO 20 mg DAILY LILLI Administration Oxycodone HCl 5 mg 01/21/20 17:26 01/23/20 01:45 Oxycodone Hcl Immed Release 5 Mg Tablet PO 5 mg Q6H PRN Administration Pain, Severe (Pain Scale 7-10) Phytonadione 5 mg 01/22/20 10:15 01/23/20 08:55 Phytonadione (Vit K1) Oral 10 Mg/Ml Ampul PO 01/24/20 09:01 5 mg DAILY LILLI Administration Potassium Chloride 20 meq 01/20/20 21:00 01/23/20 08:55 Potassium Chloride Er 20 Meq Tab.Er.Prt PO 20 meq BID LILLI Administration Rifaximin 550 mg 01/20/20 21:00 01/23/20 08:56 Rifaximin 550 Mg Tablet PO 550 mg BID LILLI Administration Risperidone 1 mg 01/20/20 21:00 01/23/20 08:56 Risperidone 1 Mg Tablet PO 1 mg BID LILLI Administration Sodium Chloride 3 ml 01/20/20 16:00 01/23/20 08:56 0.9 % Sodium Chloride Flush 3 Ml Syringe IVFLUSH 3 ml QSHIFT LILLI Administration Labs CBC & Chem 7: 01/23/20 10:54 01/23/20 10:54 Microbiology Microbiology Results: Microbiology 01/20/20 02:29 Blood - Venous Blood Culture - Preliminary No growth after 48 hours. 01/20/20 01:16 Blood - Venous Blood Culture - Preliminary No growth after 48 hours. Assessment and Plan (1) Hepatic encephalopathy: Status: Acute (2) Hyponatremia: Status: Acute (3) Anemia: Status: Acute Assessment and Plan: 54-year-old female with a history of alcoholic liver cirrhosis, COPD, bipolar disorder, chronic back pain, diabetes among others and multiple admissions at [facility] who presented with shortness of breath found to have multiple lab abnormalities including hyponatremia hyponatremia--acute on chronic due to chronic liver failure/cirrhosis 117 on admission, and today 127 well within her baseline -continue fluid restriction and avoid rapid correction -Nephrology is guiding us with therapy -check labs today hepatic encephalopathy--Waxing and waning, check Ammonia and continue lactulose lactic acidosis related to liver disease. no evidence of sepsis history of alcohol abuse denies drinking alcohol although documentation from other institutions indicate she is currently using alcohol this not appear to be in alcohol withdrawal at this time - we will monitor on CIWA -Should enrol in liver transplant service alcoholic liver cirrhosis associated anemia, thrombocytopenia, coagulopathy reportedly not a candidate for transplant at this time due to alcohol use - continue Aldactone, torsemide, rifaximin -[facility] liver panel anemia received 1 unit of blood in the ED on 01/19 - H/H is better, check again today thrombocytopenia related to liver disease - follow CBC coagulopathy - related to liver disease. INR 2.2 received 1 dose of vitamin K in the ED - follow INR Vitamin k 5 daily x 3 days diabetes - SSI, POC chronic back pain - continue gabapentin, avoid if excessive sedation mood - Atarax, Ativan, to avoid if excessive sedation shortness of breath COVID negative we will consider antibiotics - p.r.n. breathing treatments
--- NOTE | 2020-01-23 11:03 | PM.PNNEP ---
Subjective Subjective Interval history: Seen and exmined. Events noted. Sleepy this am Physical Exam Vital Signs: Vital Signs: Last Vital Signs Temp 98.5 F 01/23/20 07:36 Pulse 79 01/23/20 07:36 Resp 18 01/23/20 07:36 BP 126/58 L 01/23/20 07:36 Pulse Ox 100 01/23/20 07:36 Body Mass Index 26.4 VITAL SIGNS: Reviewed. GENERAL: Chronically ill, moderate distress. HEAD: Normocephalic/atraumatic, EYES: PERRLA, EOMI intact without pain, no nystagmus/pallor, +icterus EARS: Ext canals without abnormality, TMs non-bulging and non-erythematous NOSE: Nares patent bilateral OROPHARYNX: no oral lesions noted, posterior pharynx clear and non-erythematous without noted tonsillar enlargement/erythema/exudates NECK: Supple, no adenopathy LUNGS: Decreased breath sounds b/l. No adventitious sounds or accessory muscle use. SpO2<100> CARDIOVASCULAR: Regular rate and rhythm without noted murmurs, no JVD or lower extremity edema. ABDOMEN: Soft, non-tender, distended with bowel sounds. No fluid wave noted. No rigidity. No guarding. No palpable masses or hernias noted LIZ: no lesions or tags, soft stool in rectal vault without gross blood on finger and good rectal tone MUSCULOSKELETAL: No tenderness, deformities, or effusions noted on gross inspection. EXTREMITIES: No cyanosis, clubbing or edema. SKIN: Inspection of the skin reveals no rashes, ulcerations, pallor, or petechiae, +jaundice. NEUROLOGIC: Alert and oriented x 4. Strength and sensation to light touch were grossly intact x 4. Const: Other: easily arousable to verbal stimuli Orientation/consciousness: oriented to person and oriented to place HENMT: Head: Yes normocephalic and Yes atraumatic Eyes: Sclerae: sclerae normal Chest: Chest palpation & inspection: normal inspection of the chest Resp: Effort & Inspection: normal respiratory effort and no respiratory distress Auscultation: clear to auscultation bilaterally Cardio: Rate: regular rate Rhythm: regular rhythm GI: Palpation (GI): Soft to palpation and nontender Skin: General skin exam: no rashes or lesions noted Neuro: General: oriented to person and oriented to place Cranial nerves: Yes CN's II-XII intact bilaterally and Yes Bilaterally intact EOM present Motor exam (neuro): Asterixis during motor activity present Extrem: General: Yes normal to inspection Assessment & Plan Assessment and plan (1) Hepatic encephalopathy: Status: Acute (2) Hyponatremia: Status: Acute (3) Anemia: Status: Acute Assessment and Plan: 1. Hypervol HypoNa in cirrhotic patient with recurrent hosp d/t in part to PT not restricting her PO fluid intake and recurrent hypoNa . SNa 118 on adm and grad incr over past 48 hrs and now remains stuck at 127-128 2. TBFOL: looks ok exam at present time..but at risk for fluid retention 3. ESLD: not on liver xplant list per [facility] 4. Non-compliant on restricting fluid itake Disc: major prob is that when she gets discharged she drinks too much fluid and gets hypoNa...will add NaCl tab to see if this helps to maintain SNa > 128 which is the goal REC: r/s torsemid and aldactone; cont po fluid restriction and track SNa daily; goal is to maintain SNa > 128...may need to add PO NaCL vandana when she gets d/c'd to try to avoid drop in SNa when she starts to drink too much fluid Time Spent With Patient Time: Total time spent is greater than 50% in coordination of care (as documented) at patient's floor/unit and/or counseling patient:
[2020-01-23 11:22] LABS: Hematocrit 22.3 % (37-47); Hemoglobin 7.5 g/dl (12.0-16.0); Mean Corpuscular HGB Conc 33.6 g/dl (31.0-35.0); Mean Corpuscular Hemoglobin 32.2 pg (27.0-33.0); Mean Corpuscular Volume 95.7 fL (80-98); Mean Platelet Volume 10.8 fL (9.4-12.3); Red Blood Count 2.33 X10*6/uL (4.20-5.50); Red Cell Distribution Width 20.9 % (11.0-16.0); White Blood Count 5.6 X10*3/uL (4.8-10.8)
[2020-01-23 11:23] LABS: Platelet Count 78 X10*3/uL (160-400)
[2020-01-23] MEDS: Torsemide 20 MG TABLET PO (11:33)
[2020-01-23] MEDS: Spironolactone 25 MG TABLET PO (11:33)
[2020-01-23 11:39] LABS: INTERNATIONAL NORM RATIO 1.8 (0.9-1.1); Prothrombin Time 21.7 SEC (10.8-13.0)
[2020-01-23 11:41] LABS: Ammonia 179 umol/L (13-55)
[2020-01-23 11:43] LABS: Glucose, Whole Blood 118 mg/dL (60-115)
[2020-01-23 11:49] LABS: Alanine Aminotransferase 39 U/L (0-31); Albumin Level 2.5 g/dL (3.5-5.0); Alkaline Phosphatase 110 U/L (39-117); Anion Gap 10 (12-20); Aspartate Amino Transferase 91 U/L (5-31); Bilirubin Direct 3.3 mg/dL (0.0-0.5); Bilirubin Total 6.4 mg/dL (0.0-1.0); Blood Urea Nitrogen 12 mg/dL (9-16); Calcium 8.3 mg/dL (8.4-10.2); Carbon Dioxide 24 mmol/L (22-29); Chloride 101 mmol/L (96-108); Creatinine Clr Calc Pharmacy 85.5; Estimated Glomerular Filt Rate > 60; Glucose Random 119 mg/dL (60-115); Potassium 5.1 mmol/l (3.3-5.1); Sodium 130 mmol/L (135-145); Total Protein 5.1 g/dL (6.5-8.0)
[2020-01-23] MEDS: Sodium Chloride Tab 1 GM TABLET PO ×2 (15:56→21:50)
[2020-01-23 15:57] LABS: Glucose, Whole Blood 106 mg/dL (60-115)
[2020-01-23] MEDS: LORazepam 0.5 MG TABLET PO ×2 (18:30→22:56)
[2020-01-23 20:56] LABS: Glucose, Whole Blood 110 mg/dL (60-115)
[2020-01-24] VITALS (8 sets, daily range): BP systolic 102–134; BP diastolic 46–77; PULSE 87–94; RESP 16–20; TEMP 36.2–37.2; O2SAT 95–100
[2020-01-24] MEDS: oxyCODONE HCl Immed Release 5 MG TABLET PO ×2 (00:35→16:56)
--- NOTE | 2020-01-24 00:59 | PC.NURSE ---
transfer orders received and report given to Filiberto on med surg. pt transferred via wheelchair with belongings. pt aware of transfer and agreeable to plan.
[2020-01-24] MEDS: LORazepam 0.5 MG TABLET PO ×2 (06:51→20:08)
[2020-01-24 07:20] LABS: Glucose, Whole Blood 144 mg/dL (60-115)
[2020-01-24] MEDS: Phytonadione (Vit K1) Oral 10 MG/ML AMPUL 5 MG PO (07:35)
[2020-01-24] MEDS: Sodium Chloride Tab 1 GM TABLET PO (07:36)
[2020-01-24] MEDS: Torsemide 20 MG TABLET PO (07:36)
[2020-01-24] MEDS: Gabapentin 600 MG TABLET PO ×3 (07:36→20:08)
[2020-01-24] MEDS: hydrOXYzine HCL 25 MG TABLET PO ×3 (07:36→20:08)
[2020-01-24] MEDS: Magnesium Oxide 400 MG TABLET PO ×2 (07:36→20:08)
[2020-01-24] MEDS: rifAXIMin 550 MG TABLET PO ×2 (07:37→20:08)
[2020-01-24] MEDS: Folic Acid 1 MG TABLET PO (07:37)
[2020-01-24] MEDS: Lactulose 20 GM/30 ML SOLUTION 15 GM PO (07:37)
[2020-01-24] MEDS: Potassium Chloride ER 20 MEQ TAB.ER.PRT PO ×2 (07:37→20:08)
[2020-01-24] MEDS: risperiDONE 1 MG TABLET PO ×2 (07:37→20:08)
[2020-01-24] MEDS: Omeprazole 20 MG CAPSULE.DR PO (07:37)
[2020-01-24] MEDS: Lactulose 20 GM/30 ML SOLUTION 30 GM PO ×3 (09:00→20:08)
[2020-01-24] MEDS: 0.9 % Sodium Chloride Flush 3 ML SYRINGE IVFLUSH ×3 (09:02→23:19)
[2020-01-24] MEDS: Spironolactone 25 MG TABLET PO (09:29)
--- NOTE | 2020-01-24 09:29 | P.PNIM_ITS ---
Subjective Subjective Date of Service: 01/24/20 Interval History: Seen in f/u for hyponatremia, hepatic encephalopathy. She's more confused today Review of Systems Review of Systems: Yes Unobtainable due to mental status Physical Exam Vital Signs: Vital Signs: Last Vital Signs Temp 98.9 F 01/24/20 07:32 Pulse 87 01/24/20 07:32 Resp 17 01/24/20 07:32 BP 134/72 01/24/20 07:32 Pulse Ox 99 01/24/20 07:32 Body Mass Index 26.4 General: Oriented to self only HEENT: Sclera icteris Resp: CTA bilateral CVS: S1,S2,RRR GI: +BS, NT, no distention Skin: No rash, jaundic looking Neuro: motor grossly intact Psych: flat Objective Data Current Medications Generic Name Dose Route Start Last Admin Trade Name Freq PRN Reason Stop Dose Admin Albuterol Sulfate 2.5 mg 01/20/20 12:57 Albuterol Sulfate (0.083%) 2.5 Mg/3 Ml Vial.Neb INHALE Q4H PRN shortness of breath Folic Acid 1 mg 01/21/20 09:00 01/24/20 07:37 Folic Acid 1 Mg Tablet PO 1 mg DAILY LILLI Administration Gabapentin 600 mg 01/20/20 21:00 01/24/20 07:36 Gabapentin 600 Mg Tablet PO 600 mg TID LILLI Administration Hydroxyzine HCl 25 mg 01/20/20 21:00 01/24/20 07:36 Hydroxyzine Hcl 25 Mg Tablet PO 25 mg TID LILLI Administration Lactulose 15 gm 01/20/20 15:00 01/24/20 07:37 Lactulose 20 Gm/30 Ml Solution PO 5 gm TID LILLI Administration Lactulose 30 gm 01/24/20 08:30 01/24/20 09:00 Lactulose 20 Gm/30 Ml Solution PO 30 gm Q6H LILLI Administration Lorazepam 0.5 mg 01/20/20 16:48 01/24/20 06:51 Lorazepam 0.5 Mg Tablet PO 0.5 mg TID PRN Administration Anxiety Magnesium Oxide 400 mg 01/20/20 21:00 01/24/20 07:36 Magnesium Oxide 400 Mg Tablet PO 400 mg BID LILLI Administration Melatonin 3 mg 01/20/20 12:57 Melatonin 3 Mg Tablet PO BEDTIME PRN Sleep Omeprazole 20 mg 01/21/20 09:00 01/24/20 07:37 Omeprazole 20 Mg Capsule.Dr PO 20 mg DAILY LILLI Administration Oxycodone HCl 5 mg 01/21/20 17:26 01/24/20 00:35 Oxycodone Hcl Immed Release 5 Mg Tablet PO 5 mg Q6H PRN Administration Pain, Severe (Pain Scale 7-10) Potassium Chloride 20 meq 01/20/20 21:00 01/24/20 07:37 Potassium Chloride Er 20 Meq Tab.Er.Prt PO 20 meq BID LILLI Administration Rifaximin 550 mg 01/20/20 21:00 01/24/20 07:37 Rifaximin 550 Mg Tablet PO 550 mg BID LILLI Administration Risperidone 1 mg 01/20/20 21:00 01/24/20 07:37 Risperidone 1 Mg Tablet PO 1 mg BID LILLI Administration Sodium Chloride 3 ml 01/20/20 16:00 01/24/20 09:02 0.9 % Sodium Chloride Flush 3 Ml Syringe IVFLUSH 3 ml QSHIFT LILLI Administration Spironolactone 25 mg 01/23/20 10:50 01/23/20 11:33 Spironolactone 25 Mg Tablet PO 25 mg DAILY LILLI Administration Protocol Torsemide 20 mg 01/23/20 10:50 01/24/20 07:36 Torsemide 20 Mg Tablet PO 20 mg DAILY LILLI Administration Protocol Labs CBC & Chem 7: 01/23/20 10:54 01/23/20 10:54 Microbiology Microbiology Results: Microbiology 01/20/20 02:29 Blood - Venous Blood Culture - Preliminary No growth after 48 hours. 01/20/20 01:16 Blood - Venous Blood Culture - Preliminary No growth after 48 hours. Assessment and Plan (1) Hepatic encephalopathy: Status: Acute (2) Hyponatremia: Status: Acute (3) Anemia: Status: Acute Assessment and Plan: 54-year-old female with a history of alcoholic liver cirrhosis, COPD, bipolar disorder, chronic back pain, diabetes among others and multiple admissions at [facility] who presented with shortness of breath found to have multiple lab abnormalities including hyponatremia hyponatremia--acute on chronic due to chronic liver failure/cirrhosis 117 on admission, andnow 127 well within her baseline -continue fluid restriction and avoid rapid correction -Nephrology is guiding us with therapy -check labs today hepatic encephalopathy--Waxing and waning, repeat ammonia, incrase lactulose lactic acidosis related to liver disease. no evidence of sepsis history of alcohol abuse denies drinking alcohol although documentation from other institutions indicate she is currently using alcohol this not appear to be in alcohol withdrawal at this time - we will monitor on CIWA -Should enrol in liver transplant service alcoholic liver cirrhosis associated anemia, thrombocytopenia, coagulopathy reportedly not a candidate for transplant at this time due to alcohol use - continue Aldactone, torsemide, rifaximin -[facility] liver panel anemia received 1 unit of blood in the ED on 01/19 - H/H is better, check again today thrombocytopenia related to liver disease - follow CBC coagulopathy - related to liver disease. received 1 dose of vitamin K in the ED - follow INR Vitamin k 5 daily x 3 days diabetes - SSI, POC chronic back pain - continue gabapentin, avoid if excessive sedation mood - Atarax, Ativan, to avoid if excessive sedation
[2020-01-24 09:47] LABS: Hematocrit 24.4 % (37-47); Hemoglobin 8.1 g/dl (12.0-16.0); Mean Corpuscular HGB Conc 33.2 g/dl (31.0-35.0); Mean Corpuscular Hemoglobin 32.4 pg (27.0-33.0); Mean Corpuscular Volume 97.6 fL (80-98); Mean Platelet Volume 10.1 fL (9.4-12.3); Red Cell Distribution Width 20.6 % (11.0-16.0); White Blood Count 5.5 X10*3/uL (4.8-10.8)
[2020-01-24 09:48] LABS: Platelet Count 72 X10*3/uL (160-400)
[2020-01-24 10:03] LABS: Ammonia 107 umol/L (13-55)
[2020-01-24 10:13] LABS: Anion Gap 15 (12-20); Blood Urea Nitrogen 13 mg/dL (9-16); Calcium 8.9 mg/dL (8.4-10.2); Carbon Dioxide 23 mmol/L (22-29); Chloride 102 mmol/L (96-108); Creatinine Clr Calc Pharmacy 66.7; Estimated Glomerular Filt Rate > 60; Glucose Random 212 mg/dL (60-115); Potassium 3.7 mmol/l (3.3-5.1); Sodium 136 mmol/L (135-145)
[2020-01-24 12:02] LABS: Glucose, Whole Blood 104 mg/dL (60-115)
[2020-01-24 16:42] LABS: Glucose, Whole Blood 121 mg/dL (60-115)
--- NOTE | 2020-01-24 16:58 | PM.PNNEP ---
Subjective Subjective Interval history: Seen in f/u for hyponatremia, hepatic encephalopathy. Physical Exam Vital Signs: Vital Signs: Last Vital Signs Temp 97.6 F 01/24/20 15:33 Pulse 88 01/24/20 15:33 Resp 18 01/24/20 15:33 BP 102/59 L 01/24/20 15:33 Pulse Ox 100 01/24/20 15:33 Body Mass Index 26.4 VITAL SIGNS: Reviewed. GENERAL: Chronically ill, moderate distress. HEAD: Normocephalic/atraumatic, EYES: PERRLA, EOMI intact without pain, no nystagmus/pallor, +icterus EARS: Ext canals without abnormality, TMs non-bulging and non-erythematous NOSE: Nares patent bilateral OROPHARYNX: no oral lesions noted, posterior pharynx clear and non-erythematous without noted tonsillar enlargement/erythema/exudates NECK: Supple, no adenopathy LUNGS: Decreased breath sounds b/l. No adventitious sounds or accessory muscle use. SpO2<100> CARDIOVASCULAR: Regular rate and rhythm without noted murmurs, no JVD or lower extremity edema. ABDOMEN: Soft, non-tender, distended with bowel sounds. No fluid wave noted. No rigidity. No guarding. No palpable masses or hernias noted LIZ: no lesions or tags, soft stool in rectal vault without gross blood on finger and good rectal tone MUSCULOSKELETAL: No tenderness, deformities, or effusions noted on gross inspection. EXTREMITIES: No cyanosis, clubbing or edema. SKIN: Inspection of the skin reveals no rashes, ulcerations, pallor, or petechiae, +jaundice. NEUROLOGIC: Alert and oriented x 4. Strength and sensation to light touch were grossly intact x 4. Const: Other: easily arousable to verbal stimuli Orientation/consciousness: oriented to person and oriented to place HENMT: Head: Yes normocephalic and Yes atraumatic Eyes: Sclerae: sclerae normal Chest: Chest palpation & inspection: normal inspection of the chest Resp: Effort & Inspection: normal respiratory effort and no respiratory distress Auscultation: clear to auscultation bilaterally Cardio: Rate: regular rate Rhythm: regular rhythm GI: Palpation (GI): Soft to palpation and nontender Skin: General skin exam: no rashes or lesions noted Neuro: General: oriented to person and oriented to place Cranial nerves: Yes CN's II-XII intact bilaterally and Yes Bilaterally intact EOM present Motor exam (neuro): Asterixis during motor activity present Extrem: General: Yes normal to inspection Assessment & Plan Assessment and plan (1) Hepatic encephalopathy: Status: Acute (2) Hyponatremia: Status: Acute (3) Anemia: Status: Acute Assessment and Plan: 1. Hypervol HypoNa in cirrhotic patient with recurrent hosp d/t in part to PT not restricting her PO fluid intake and recurrent hypoNa . SNa 118 on adm (01/19) and grad incr over past 4 days to 130 BUT today noted 136 and she is having diarrhea from incr lactulose SO need to stop diuretics and give D5W and repeat Sna to make sure it does not increas above 135 today 2. TBFOL: looks ok exam at present time..but at risk for fluid retention 3. ESLD: not on liver xplant list per [facility] 4. Non-compliant on restricting fluid itake REC; d/c diuretics; give D5W 150 x 2 hrs ( total of 300 ml) and then repeat stat Sna to keep SNa 135 or below as target for today D/W Dr Rudd who is to order the IVF and respeat stat SNa Time Spent With Patient Time: Total time spent is greater than 50% in coordination of care (as documented) at patient's floor/unit and/or counseling patient:
[2020-01-24 17:54] LABS: Anion Gap 16 (12-20); Carbon Dioxide 22 mmol/L (22-29); Chloride 99 mmol/L (96-108); Potassium 3.3 mmol/l (3.3-5.1); Sodium 134 mmol/L (135-145)
--- NOTE | 2020-01-24 18:01 | P.PNNP_ITS ---
Subjective Subjective Interval history: Update Talk with RN..she is NOT having diarrhea D5W that we were going to give we are holding until we get repeat SNa Plan is to get stat lytes now and then decide whether or not to give her D5W Goal is to try and avoid SNa increasing above 136 before tomorrow am Physical Exam Vital Signs: Vital Signs: Last Vital Signs Temp 97.6 F 01/24/20 15:33 Pulse 88 01/24/20 15:33 Resp 18 01/24/20 15:33 BP 102/59 L 01/24/20 15:33 Pulse Ox 100 01/24/20 15:33 Body Mass Index 26.4 VITAL SIGNS: Reviewed. GENERAL: Chronically ill, moderate distress. HEAD: Normocephalic/atraumatic, EYES: PERRLA, EOMI intact without pain, no nystagmus/pallor, +icterus EARS: Ext canals without abnormality, TMs non-bulging and non-erythematous NOSE: Nares patent bilateral OROPHARYNX: no oral lesions noted, posterior pharynx clear and non-erythematous without noted tonsillar enlargement/erythema/exudates NECK: Supple, no adenopathy LUNGS: Decreased breath sounds b/l. No adventitious sounds or accessory muscle u se. SpO2<100> CARDIOVASCULAR: Regular rate and rhythm without noted murmurs, no JVD or lower extremity edema. ABDOMEN: Soft, non-tender, distended with bowel sounds. No fluid wave noted. No rigidity. No guarding. No palpable masses or hernias noted LIZ: no lesions or tags, soft stool in rectal vault without gross blood on finger and good rectal tone MUSCULOSKELETAL: No tenderness, deformities, or effusions noted on gross inspection. EXTREMITIES: No cyanosis, clubbing or edema. SKIN: Inspection of the skin reveals no rashes, ulcerations, pallor, or petechiae, +jaundice. NEUROLOGIC: Alert and oriented x 4. Strength and sensation to light touch were grossly intact x 4. Const: Other: easily arousable to verbal stimuli Orientation/consciousness: oriented to person, oriented to place and oriented to time HENMT: Head: Yes normocephalic and Yes atraumatic Eyes: Sclerae: sclerae normal and scleral abnormal (icteris) Chest: Chest palpation & inspection: normal inspection of the chest Resp: Effort & Inspection: normal respiratory effort and no respiratory distress Auscultation: clear to auscultation bilaterally Cardio: Rate: regular rate Rhythm: regular rhythm GI: Palpation (GI): Soft to palpation and nontender Skin: General skin exam: no rashes or lesions noted Neuro: General: oriented to person, oriented to place and oriented to time Cranial nerves: Yes CN's II-XII intact bilaterally and Yes Bilaterally intact EOM present Motor exam (neuro): Asterixis during motor activity present Extrem: General: Yes normal to inspection Assessment & Plan Assessment and plan (1) Hepatic encephalopathy: Status: Acute (2) Hyponatremia: Status: Acute (3) Anemia: Status: Acute Assessment and Plan: Update Talk with RN..she is NOT having diarrhea D5W that we were going to give we are holding until we get repeat SNa Plan is to get stat lytes now and then decide whether or not to give her D5W Goal is to try and avoid SNa increasing above 136 before tomorrow am Time Spent With Patient Time: Total time spent is greater than 50% in coordination of care (as documented) at patient's floor/unit and/or counseling patient:
[2020-01-24 20:54] LABS: Glucose, Whole Blood 128 mg/dL (60-115)
[2020-01-25] MEDS: oxyCODONE HCl Immed Release 5 MG TABLET PO (01:17)
[2020-01-25] MEDS: Lactulose 20 GM/30 ML SOLUTION 30 GM PO ×3 (01:35→14:23)
[2020-01-25] MEDS: LORazepam 0.5 MG TABLET PO (03:46)
[2020-01-25 04:00] VITALS: BP 106/68; PULSE 85; RESP 19; TEMP 36.8; O2SAT 100
[2020-01-25 07:50] VITALS: BP 119/69; PULSE 88; RESP 18; TEMP 36.6; O2SAT 99
[2020-01-25 08:43] LABS: Glucose, Whole Blood 114 mg/dL (60-115)
[2020-01-25] MEDS: Magnesium Oxide 400 MG TABLET PO (08:55)
[2020-01-25] MEDS: Gabapentin 600 MG TABLET PO (08:55)
[2020-01-25] MEDS: Spironolactone 25 MG TABLET PO (08:55)
[2020-01-25] MEDS: Omeprazole 20 MG CAPSULE.DR PO (08:55)
[2020-01-25] MEDS: rifAXIMin 550 MG TABLET PO (08:55)
[2020-01-25] MEDS: risperiDONE 1 MG TABLET PO (08:55)
[2020-01-25] MEDS: Folic Acid 1 MG TABLET PO (08:55)
[2020-01-25] MEDS: hydrOXYzine HCL 25 MG TABLET PO (08:55)
[2020-01-25] MEDS: Potassium Chloride ER 20 MEQ TAB.ER.PRT PO (08:55)
[2020-01-25] MEDS: Torsemide 20 MG TABLET PO (08:56)
[2020-01-25] MEDS: 0.9 % Sodium Chloride Flush 3 ML SYRINGE IVFLUSH (08:57)
[2020-01-25 10:39] LABS: MANUAL DIFF FLAG NO
[2020-01-25 10:47] LABS: Basophils Percent Auto 0.6 % (0-2); Eosinophils Absolute Auto 0.2 X10*3/uL (0.0-0.4); Eosinophils Percent Auto 2.8 % (0-4); Hematocrit 24.7 % (37-47); Hemoglobin 8.2 g/dl (12.0-16.0); Imm Gran Abs Auto 0.03 X10*3/uL (0.00-0.03); Imm Gran Pct Auto 0.4 % (0.0-0.4); Lymphocytes Absolute Auto 1.2 X10*3/uL (1.2-4.9); Lymphocytes Percent Auto 18.6 % (20-40); Mean Corpuscular HGB Conc 33.2 g/dl (31.0-35.0); Mean Corpuscular Hemoglobin 32.4 pg (27.0-33.0); Mean Corpuscular Volume 97.6 fL (80-98); Mean Platelet Volume 10.7 fL (9.4-12.3); Monocytes Percent Auto 15.3 % (2-11); Neutrophils Absolute Auto 4.2 X10*3/uL (2.0-8.3); Neutrophils Percent Auto 62.3 % (45-73); Red Blood Count 2.53 X10*6/uL (4.20-5.50); Red Cell Distribution Width 20.8 % (11.0-16.0); White Blood Count 6.7 X10*3/uL (4.8-10.8)
[2020-01-25 10:54] LABS: Platelet Count 83 X10*3/uL (160-400)
[2020-01-25 11:01] LABS: INTERNATIONAL NORM RATIO 1.8 (0.9-1.1); Prothrombin Time 21.5 SEC (10.8-13.0)
[2020-01-25 11:06] LABS: Ammonia 74 umol/L (13-55)
--- NOTE | 2020-01-25 11:11 | PM.PNNEP ---
Subjective Subjective Interval history: Seen and examined. Events noted Reamns confused/lethargic alt with agitation Physical Exam Vital Signs: Vital Signs: Last Vital Signs Temp 97.9 F 01/25/20 07:50 Pulse 88 01/25/20 07:50 Resp 18 01/25/20 07:50 BP 119/69 01/25/20 07:50 Pulse Ox 99 01/25/20 07:50 Body Mass Index 26.4 VITAL SIGNS: Reviewed. GENERAL: Chronically ill, moderate distress. HEAD: Normocephalic/atraumatic, EYES: PERRLA, EOMI intact without pain, no nystagmus/pallor, +icterus EARS: Ext canals without abnormality, TMs non-bulging and non-erythematous NOSE: Nares patent bilateral OROPHARYNX: no oral lesions noted, posterior pharynx clear and non-erythematous without noted tonsillar enlargement/erythema/exudates NECK: Supple, no adenopathy LUNGS: Decreased breath sounds b/l. No adventitious sounds or accessory muscle use. SpO2<100> CARDIOVASCULAR: Regular rate and rhythm without noted murmurs, no JVD or lower extremity edema. ABDOMEN: Soft, non-tender, distended with bowel sounds. No fluid wave noted. No rigidity. No guarding. No palpable masses or hernias noted LIZ: no lesions or tags, soft stool in rectal vault without gross blood on finger and good rectal tone MUSCULOSKELETAL: No tenderness, deformities, or effusions noted on gross inspection. EXTREMITIES: No cyanosis, clubbing or edema. SKIN: Inspection of the skin reveals no rashes, ulcerations, pallor, or petechiae, +jaundice. NEUROLOGIC: Alert and oriented x 4. Strength and sensation to light touch were grossly intact x 4. Const: Other: easily arousable to verbal stimuli HENMT: Head: Yes normocephalic and Yes atraumatic Eyes: Sclerae: sclerae normal and scleral abnormal (icteris) Chest: Chest palpation & inspection: normal inspection of the chest Resp: Effort & Inspection: normal respiratory effort and no respiratory distress Auscultation: clear to auscultation bilaterally Cardio: Rate: regular rate Rhythm: regular rhythm GI: Palpation (GI): Soft to palpation and nontender Skin: General skin exam: no rashes or lesions noted Neuro: Motor exam (neuro): Asterixis during motor activity present Assessment & Plan Assessment and plan (1) Hepatic encephalopathy: Status: Acute (2) Hyponatremia: Status: Acute Time Spent With Patient Time: Total time spent is greater than 50% in coordination of care (as documented) at patient's floor/unit and/or counseling patient:
[2020-01-25 11:13] VITALS: BP 141/91; PULSE 82; RESP 18; TEMP 36.7; O2SAT 90
[2020-01-25 11:16] LABS: Anion Gap 11 (12-20); Blood Urea Nitrogen 14 mg/dL (9-16); Calcium 8.9 mg/dL (8.4-10.2); Carbon Dioxide 28 mmol/L (22-29); Chloride 100 mmol/L (96-108); Creatinine Clr Calc Pharmacy 52.4; Estimated Glomerular Filt Rate 49; Glucose Random 148 mg/dL (60-115); Potassium 3.6 mmol/l (3.3-5.1); Sodium 135 mmol/L (135-145)
[2020-01-25 11:44] LABS: Glucose, Whole Blood 115 mg/dL (60-115)
--- NOTE | 2020-01-25 13:13 | MHC.CM.PN ---
PER PHYSICIAN ROUNDS, PATIENT ENCEPHALITIC POSSIBLE SHORT TERM REHAB HCP FOUND IN HISTORICAL VISITS AND COPY PLACED ON CHART ([facility] [phone]) CASE MANAGEMENT FOLLOWING.
--- NOTE | 2020-01-25 15:54 | P.PNIM_ITS ---
Subjective Subjective Date of Service: 01/25/20 Interval History: Still very confused, weak Cardiovascular Cardiovascular: Denies chest pain and Denies dyspnea Respiratory Respiratory: Denies dyspnea Gastrointestinal Gastrointestinal: Denies abdominal pain Physical Exam Vital Signs: Vital Signs: Last Vital Signs Temp 98.0 F 01/25/20 11:13 Pulse 82 01/25/20 11:13 Resp 18 01/25/20 11:13 BP 141/91 H 01/25/20 11:13 Pulse Ox 90 L 01/25/20 11:13 Body Mass Index 26.4 Const: General: ill appearing and lethargic Orientation/consciousness: lethargic Eyes: Sclerae: scleral abnormal (icteric) Chest: Chest palpation & inspection: normal inspection of the chest Resp: Effort & Inspection: normal respiratory effort Auscultation: clear to auscultation bilaterally Cardio: Rate: regular rate Rhythm: regular rhythm GI: Inspection: Yes normal to inspection Palpation (GI): Soft to palpation and nontender Neuro: Other: tremulous with superimposed asterixis Objective Data Current Medications Generic Name Dose Route Start Last Admin Trade Name Freq PRN Reason Stop Dose Admin Albuterol Sulfate 2.5 mg 01/20/20 12:57 Albuterol Sulfate (0.083%) 2.5 Mg/3 Ml Vial.Neb INHALE Q4H PRN shortness of breath Folic Acid 1 mg 01/21/20 09:00 01/25/20 08:55 Folic Acid 1 Mg Tablet PO 1 mg DAILY LILLI Administration Gabapentin 600 mg 01/20/20 21:00 01/25/20 14:37 Gabapentin 600 Mg Tablet PO Not Given TID LILLI Hydroxyzine HCl 25 mg 01/20/20 21:00 01/25/20 14:36 Hydroxyzine Hcl 25 Mg Tablet PO Not Given TID LILLI Lactulose 30 gm 01/24/20 08:30 01/25/20 14:23 Lactulose 20 Gm/30 Ml Solution PO 30 gm Q6H LILLI Administration Lorazepam 0.5 mg 01/20/20 16:48 01/25/20 03:46 Lorazepam 0.5 Mg Tablet PO 0.5 mg TID PRN Administration Anxiety Magnesium Oxide 400 mg 01/20/20 21:00 01/25/20 08:55 Magnesium Oxide 400 Mg Tablet PO 400 mg BID LILLI Administration Melatonin 3 mg 01/20/20 12:57 Melatonin 3 Mg Tablet PO BEDTIME PRN Sleep Omeprazole 20 mg 01/21/20 09:00 01/25/20 08:55 Omeprazole 20 Mg Capsule.Dr PO 20 mg DAILY LILLI Administration Oxycodone HCl 5 mg 01/21/20 17:26 01/25/20 01:17 Oxycodone Hcl Immed Release 5 Mg Tablet PO 5 mg Q6H PRN Administration Pain, Severe (Pain Scale 7-10) Potassium Chloride 20 meq 01/20/20 21:00 01/25/20 08:55 Potassium Chloride Er 20 Meq Tab.Er.Prt PO 20 meq BID LILLI Administration Rifaximin 550 mg 01/20/20 21:00 01/25/20 08:55 Rifaximin 550 Mg Tablet PO 550 mg BID LILLI Administration Risperidone 1 mg 01/20/20 21:00 01/25/20 08:55 Risperidone 1 Mg Tablet PO 1 mg BID LILLI Administration Sodium Chloride 3 ml 01/20/20 16:00 01/25/20 08:57 0.9 % Sodium Chloride Flush 3 Ml Syringe IVFLUSH 3 ml QSHIFT LILLI Administration Labs CBC & Chem 7: 01/25/20 10:28 01/25/20 10:28 Labs: Laboratory Results - last 24 hr 01/24/20 01/24/20 01/24/20 16:36 17:27 20:36 WBC RBC Hgb Hct MCV MCH MCHC RDW Plt Count MPV Immature Gran % (Auto) Neut % (Auto) Lymph % (Auto) Addison % (Auto) Eos % (Auto) Baso % (Auto) Lymph # (Auto) Addison # (Auto) Eos # (Auto) Baso # (Auto) Abs Immat Gran (auto) Absolute Neuts (auto) Absolute Nucleated RBC Nucleated RBC % (auto) PT INR Sodium 134 L Potassium 3.3 Chloride 99 Carbon Dioxide 22 Anion Gap 16 BUN Creatinine Estim Creat Clear Calc Estimated GFR POC Glucose 121 H 128 H Random Glucose Calcium Ammonia 01/25/20 01/25/20 01/25/20 07:53 10:28 10:28 WBC 6.7 RBC 2.53 L Hgb 8.2 L Hct 24.7 L MCV 97.6 MCH 32.4 MCHC 33.2 RDW 20.8 H Plt Count 83 L MPV 10.7 Immature Gran % (Auto) 0.4 Neut % (Auto) 62.3 Lymph % (Auto) 18.6 L Addison % (Auto) 15.3 H Eos % (Auto) 2.8 Baso % (Auto) 0.6 Lymph # (Auto) 1.2 Addison # (Auto) 1.0 Eos # (Auto) 0.2 Baso # (Auto) 0.0 Abs Immat Gran (auto) 0.03 Absolute Neuts (auto) 4.2 Absolute Nucleated RBC 0.000 Nucleated RBC % (auto) 0.0 PT 21.5 H INR 1.8 H Sodium Potassium Chloride Carbon Dioxide Anion Gap BUN Creatinine Estim Creat Clear Calc Estimated GFR POC Glucose 114 Random Glucose Calcium Ammonia 01/25/20 01/25/20 01/25/20 10:28 10:28 11:12 WBC RBC Hgb Hct MCV MCH MCHC RDW Plt Count MPV Immature Gran % (Auto) Neut % (Auto) Lymph % (Auto) Addison % (Auto) Eos % (Auto) Baso % (Auto) Lymph # (Auto) Addison # (Auto) Eos # (Auto) Baso # (Auto) Abs Immat Gran (auto) Absolute Neuts (auto) Absolute Nucleated RBC Nucleated RBC % (auto) PT INR Sodium 135 Potassium 3.6 Chloride 100 Carbon Dioxide 28 Anion Gap 11 L BUN 14 Creatinine 1.16 Estim Creat Clear Calc 52.4 Estimated GFR 49 POC Glucose 115 Random Glucose 148 H Calcium 8.9 Ammonia 74 H Microbiology Microbiology Results: Microbiology 01/20/20 02:29 Blood - Venous Blood Culture - Final No growth after 5 days. 01/20/20 01:16 Blood - Venous Blood Culture - Final No growth after 5 days. Assessment and Plan (1) Hepatic encephalopathy: Status: Acute (2) Hyponatremia: Status: Acute (3) Anemia: Status: Acute Assessment and Plan: hospital d#6 54yo F with EtOH cirrhosis, DM2, COPD, chronic back pain, bipolar disorder admitted for severe hypoNa # severe hypoNa - due to chronic liver disease - resolved with fluid restriction - continue to hold diuretics - Nephrology following # hepatic encephalopathy - on lactulose + rifaximin # lactic acidosis - due to chronic liver disease; not septic # EtOH cirrhosis # coagulopathy # thrombocytopenia # anemia - needs hepatology/GI f/u - monitor CBC/INR/LFTs. did get 1u pRBCs 01/20/20 + vit K x 4d # hx EtOH abuse - not in withdrawal at this time; pt denies EtOH for past 6 mo though documentation from other hospitals indicates otherwise # DM2 - correction-dose lispro - A1c check # chronic back pain - continue gabapentin but lower dose to sedation # mood disorder - continue hydroxyzine (change to prn) + lorazepam + risperidone # dispo - PT eval, will likely need STR # VTE ppx - SCDs, avoid heparin given thrombocytopenia
[2020-01-25 16:00] VITALS: BP 109/61; PULSE 84; RESP 18; TEMP 36.3; O2SAT 97
[2020-01-25 16:34] LABS: OBS1 POS (NEG)
[2020-01-25 16:35] LABS: OBS Int Ctl Valid YES
[2020-01-25 17:14] LABS: Glucose, Whole Blood 116 mg/dL (60-115)
[2020-01-25 19:31] VITALS: BP 125/54; PULSE 88; RESP 16; TEMP 36.6; O2SAT 99
[2020-01-25 21:44] LABS: Glucose, Whole Blood 169 mg/dL (60-115)
[2020-01-26] VITALS (8 sets, daily range): BP systolic 100–122; BP diastolic 43–59; PULSE 77–85; RESP 16–20; TEMP 36.4–36.7; O2SAT 97–100
--- NOTE | 2020-01-26 00:13 | PC.NURSE ---
Pt was very drowsy for 2330 and 2100 medications. Medications held and pt allowed to continue to keep sleeping at that time. 2152- Dr. Ramirez was notified that medications were held, no new orders at that time.
[2020-01-26] MEDS: 0.9 % Sodium Chloride Flush 3 ML SYRINGE IVFLUSH ×5 (00:39→21:53)
[2020-01-26] MEDS: oxyCODONE HCl Immed Release 5 MG TABLET PO ×2 (02:13→23:32)
[2020-01-26 06:58] LABS: MANUAL DIFF FLAG NO
[2020-01-26 07:08] LABS: Basophils Absolute Auto 0.1 X10*3/uL (0.0-0.2); Basophils Percent Auto 0.6 % (0-2); Eosinophils Absolute Auto 0.3 X10*3/uL (0.0-0.4); Eosinophils Percent Auto 4.2 % (0-4); Hematocrit 24.7 % (37-47); Imm Gran Abs Auto 0.04 X10*3/uL (0.00-0.03); Imm Gran Pct Auto 0.5 % (0.0-0.4); Lymphocytes Absolute Auto 1.6 X10*3/uL (1.2-4.9); Lymphocytes Percent Auto 20.4 % (20-40); Mean Corpuscular HGB Conc 32.4 g/dl (31.0-35.0); Mean Corpuscular Hemoglobin 31.7 pg (27.0-33.0); Mean Platelet Volume 10.2 fL (9.4-12.3); Monocytes Absolute Auto 0.8 X10*3/uL (0.1-1.2); Monocytes Percent Auto 10.6 % (2-11); Neutrophils Percent Auto 63.7 % (45-73); Red Blood Count 2.52 X10*6/uL (4.20-5.50); Red Cell Distribution Width 20.8 % (11.0-16.0); White Blood Count 7.8 X10*3/uL (4.8-10.8)
[2020-01-26 07:17] LABS: INTERNATIONAL NORM RATIO 1.8 (0.9-1.1); Prothrombin Time 21.2 SEC (10.8-13.0)
[2020-01-26 07:22] LABS: Platelet Count 81 X10*3/uL (160-400)
[2020-01-26 07:50] LABS: Alanine Aminotransferase 38 U/L (0-31); Albumin Level 2.6 g/dL (3.5-5.0); Alkaline Phosphatase 105 U/L (39-117); Anion Gap 11 (12-20); Aspartate Amino Transferase 76 U/L (5-31); Blood Urea Nitrogen 13 mg/dL (9-16); Calcium 8.3 mg/dL (8.4-10.2); Carbon Dioxide 29 mmol/L (22-29); Chloride 96 mmol/L (96-108); Creatinine Clr Calc Pharmacy 67.5; Estimated Glomerular Filt Rate > 60; Glucose Random 80 mg/dL (60-115); Potassium 3.9 mmol/l (3.3-5.1); Sodium 132 mmol/L (135-145); Total Protein 5.4 g/dL (6.5-8.0)
[2020-01-26 08:08] LABS: Estimated Average Glucose 71 mg/dL; Hemoglobin A1c % 4.1 %
[2020-01-26 08:15] LABS: Glucose, Whole Blood 89 mg/dL (60-115)
[2020-01-26] MEDS: Gabapentin 600 MG TABLET 300 MG PO ×3 (08:31→21:48)
[2020-01-26] MEDS: risperiDONE 1 MG TABLET PO ×2 (08:31→21:48)
[2020-01-26] MEDS: Potassium Chloride ER 20 MEQ TAB.ER.PRT PO ×2 (08:31→21:46)
[2020-01-26] MEDS: Lactulose 20 GM/30 ML SOLUTION 30 GM PO ×3 (08:31→21:45)
[2020-01-26] MEDS: Magnesium Oxide 400 MG TABLET PO ×2 (08:31→21:47)
[2020-01-26] MEDS: Omeprazole 20 MG CAPSULE.DR PO (08:31)
[2020-01-26] MEDS: rifAXIMin 550 MG TABLET PO ×2 (08:31→21:48)
[2020-01-26] MEDS: Folic Acid 1 MG TABLET PO (08:33)
--- NOTE | 2020-01-26 11:14 | P.F2F_ITS ---
Service Date Service Date: 01/26/20 Encounter Date of encounter: 01/26/20 Reasons for Services Reason for custodial: neurological assessment, medication management, medication treatment and teach disease management Reason for physical therapy: home safety and mobility, therapeutic exercises, gait/transfer training, assess need for DME, ADL training and energy conservation Reason for occupational therapy: home safety and mobility, therapeutic exercises, gait/transfer training, assess need for DME, ADL training and energy conservation Homebound: Leaving the home is medically contraindicated at this time without the asist of a device and/or another person due th the listed conditions above and below. Reason homebound: unsteady gait / fall risk, cognitively impaired / unsafe and weakness related to hospital stay Homebound supporting statement: Ms Nicole was admitted to [facility] 01/20/20-01/26/20 for hyponatremia and hepatic encephalopathy related to decompensated cirrhosis of the liver. Certification: Based on the above findings, I certify that this patient is confined to the home and needs intermittent custodial care, physical therapy and/or speech therapy, or continues to need occupational therapy. The patient is under my care, and I have initiated the establishment of the plan of care. The patient will be followed by a physician who will periodically review the plan of care.
--- NOTE | 2020-01-26 11:16 | P.DS_ITS ---
DS: Providers Provider Date of admission: 01/20/20 11:29 Primary care physician: Nuvia Bagley NP Consults: 01/20/20 09:49 Consult to Nephrology Routine Consulting Provider: Gerardo Coppola Reason for consultation: Hyponatremia Has provider been notified: Yes 01/24/20 08:26 Consult for Sitter Routine Reason for consultation: Extreme agitation and confusion DS: Diagnosis Discharge Diagnosis (1) Hepatic encephalopathy: Status: Acute (2) Hyponatremia: Status: Acute (3) Anemia: Status: Acute (4) Cirrhosis: Status: Acute Problem details: related to alcohol (5) Lactic acid acidosis: Status: Acute (6) Coagulopathy: Status: Acute (7) Thrombocytopenia: Status: Acute DS: Summary Time Spent with Patient Time attestation: Total time spent providing and/or coordinating discharge services: 40 Physical Exam Vital Signs: Vital Signs: Last Vital Signs Temp 97.6 F 01/26/20 07:25 Pulse 80 01/26/20 08:20 Resp 18 01/26/20 07:25 BP 112/55 L 01/26/20 08:20 Pulse Ox 99 01/26/20 08:20 Body Mass Index 26.4 Gen: chronically ill, no acute distress HEENT: scleral icterus, moist mucous membranes Neck: supple Lungs: clear bilaterally, no adventitious sounds CV: regular rate and rhythm Abd: soft, non-tender Extremities: warm, well-perfused Neuro: asterixis noted DS: Data Data Completed and Pending Labs on day of discharge: labs for last 24 hr: Laboratory Results - last 24 hr 01/25/20 01/25/20 01/25/20 11:12 15:24 16:56 WBC RBC Hgb Hct MCV MCH MCHC RDW Plt Count MPV Immature Gran % (Auto) Neut % (Auto) Lymph % (Auto) Evans % (Auto) Eos % (Auto) Baso % (Auto) Lymph # (Auto) Evans # (Auto) Eos # (Auto) Baso # (Auto) Abs Immat Gran (auto) Absolute Neuts (auto) Absolute Nucleated RBC Nucleated RBC % (auto) PT INR Sodium Potassium Chloride Carbon Dioxide Anion Gap BUN Creatinine Estim Creat Clear Calc Estimated GFR POC Glucose 115 116 H Random Glucose Estimat Average Glucose Hemoglobin A1c % Calcium Total Bilirubin AST ALT Alkaline Phosphatase Total Protein Albumin Stool Occult Blood POS 1101/26/20 01/26/20 21:31 06:39 06:39 WBC 7.8 RBC 2.52 L Hgb 8.0 L Hct 24.7 L MCV 98.0 MCH 31.7 MCHC 32.4 RDW 20.8 H Plt Count 81 L MPV 10.2 Immature Gran % (Auto) 0.5 H Neut % (Auto) 63.7 Lymph % (Auto) 20.4 Evans % (Auto) 10.6 Eos % (Auto) 4.2 H Baso % (Auto) 0.6 Lymph # (Auto) 1.6 Evans # (Auto) 0.8 Eos # (Auto) 0.3 Baso # (Auto) 0.1 Abs Immat Gran (auto) 0.04 H Absolute Neuts (auto) 5.0 Absolute Nucleated RBC 0.000 Nucleated RBC % (auto) 0.0 PT 21.2 H INR 1.8 H Sodium Potassium Chloride Carbon Dioxide Anion Gap BUN Creatinine Estim Creat Clear Calc Estimated GFR POC Glucose 169 H Random Glucose Estimat Average Glucose Hemoglobin A1c % Calcium Total Bilirubin AST ALT Alkaline Phosphatase Total Protein Albumin Stool Occult Blood 01/26/20 01/26/20 01/26/20 06:39 06:39 07:29 WBC RBC Hgb Hct MCV MCH MCHC RDW Plt Count MPV Immature Gran % (Auto) Neut % (Auto) Lymph % (Auto) Evans % (Auto) Eos % (Auto) Baso % (Auto) Lymph # (Auto) Evans # (Auto) Eos # (Auto) Baso # (Auto) Abs Immat Gran (auto) Absolute Neuts (auto) Absolute Nucleated RBC Nucleated RBC % (auto) PT INR Sodium 132 L Potassium 3.9 Chloride 96 Carbon Dioxide 29 Anion Gap 11 L BUN 13 Creatinine 0.90 Estim Creat Clear Calc 67.5 Estimated GFR > 60 POC Glucose 89 Random Glucose 80 D Estimat Average Glucose 71 Hemoglobin A1c % 4.1 Calcium 8.3 L D Total Bilirubin 8.0 H AST 76 H ALT 38 H Alkaline Phosphatase 105 Total Protein 5.4 L Albumin 2.6 L Stool Occult Blood Discharge Plan Discharge Patient Disposition: Home Health Service Referrals: Nuvia Bagley, [employer]ENTICE [Primary Care Provider] - Discharge Medications: New gabapentin 300 mg capsule 300 mg PO TID Qty: 90 RF: 0 Continued potassium chloride 20 mEq tablet,ER particles/crystals 20 meq PO BID RF: 0 magnesium oxide 400 mg (241.3 mg magnesium) tablet 400 mg PO BID RF: 0 lorazepam 0.5 mg tablet 0.5 mg PO TID PRN (Reason: Anxiety) RF: 0 folic acid 1 mg tablet 1 mg PO DAILY RF: 0 hydroxyzine pamoate 25 mg capsule 25 mg PO TID RF: 0 Xifaxan 550 mg tablet 550 mg PO BID RF: 0 melatonin 3 mg Tablet 3 mg PO BEDTIME PRN (Reason: Sleep) RF: 0 omeprazole 20 mg Capsule,Delayed Release(Dr/Ec) 20 mg PO BID RF: 0 lactulose 10 gram/15 mL (15 mL) Solution 15 g PO TID RF: 0 risperidone 1 mg tablet 1 mg PO BID RF: 0 Discontinued gabapentin 600 mg tablet 600 mg PO TID RF: 0 spironolactone 50 mg Tablet 50 mg PO DAILY RF: 0 torsemide 20 mg Tablet 20 mg PO DAILY RF: 0 Diet: advance to your usual diet Activity on Discharge: home PT/OT Patient Instructions: Cirrhosis (DC), Hepatic Encephalopathy (DC) Stand Alone Forms: Community Support Other Ambulatory Orders: Complete Blood Count Auto Diff (Routine) Timeframe: 1 Week Facility: [facility] - Location: Laboratory Ordered By: Nino Menjivar Comprehensive Met. Panel (Routine) Timeframe: 1 Week Facility: [facility] - Location: Laboratory Ordered By: Nino Menjivar Prothrombin Time INR (Routine) Timeframe: 1 Week Facility: [facility] - Location: Laboratory Ordered By: Nino Menjivar Visit Report Forms: Patient Portal Discharge page Care Plan Goals: liver transplant Health Concerns: cirrhosis Plan of Treatment: avoid alcohol completely VNA/home physical therapy laboratory studies in 1 week: CMP, CBCd, PT/INR follow up with your primary care provider within 1 week follow up with your inspector precision assembly Dr Dias at [facility] within 2 weeks decrease gabapentin to 300 mg 3x a day continue rifaximin 550 mg twice daily; take lactulose as frequently as needed to achieve 4 soft bowel movements per day
--- NOTE | 2020-01-26 11:53 | MHC.CM.PN ---
PATIENT DISCHARGE CANCELLED FOR TODAY. REFERRAL TO [facility] FOR PT AND RN SKILLS. MESSAGE LEFT WITH [facility] OF [facility] ([phone]) TO SECURE AUTHORIZATION FOR SERVICES. IMM 01/25 IN CHART. PATIENT GIVEN VERBAL DELIVERY OF IMM, AND AGREES TO HAVE ORIGINAL LEFT BEDSIDE.
--- NOTE | 2020-01-26 12:13 | PM.PNNEP ---
Subjective Subjective Interval history: Still confused on/off, weak Physical Exam Vital Signs: Vital Signs: Last Vital Signs Temp 98.1 F 01/26/20 11:35 Pulse 77 01/26/20 11:35 Resp 19 01/26/20 11:35 BP 113/46 L 01/26/20 11:35 Pulse Ox 100 01/26/20 11:35 Body Mass Index 26.4 VITAL SIGNS: Reviewed. GENERAL: Chronically ill, moderate distress. HEAD: Normocephalic/atraumatic, EYES: PERRLA, EOMI intact without pain, no nystagmus/pallor, +icterus EARS: Ext canals without abnormality, TMs non-bulging and non-erythematous NOSE: Nares patent bilateral OROPHARYNX: no oral lesions noted, posterior pharynx clear and non-erythematous without noted tonsillar enlargement/erythema/exudates NECK: Supple, no adenopathy LUNGS: Decreased breath sounds b/l. No adventitious sounds or accessory muscle use. SpO2<100> CARDIOVASCULAR: Regular rate and rhythm without noted murmurs, no JVD or lower extremity edema. ABDOMEN: Soft, non-tender, distended with bowel sounds. No fluid wave noted. No rigidity. No guarding. No palpable masses or hernias noted LIZ: no lesions or tags, soft stool in rectal vault without gross blood on finger and good rectal tone MUSCULOSKELETAL: No tenderness, deformities, or effusions noted on gross inspection. EXTREMITIES: No cyanosis, clubbing or edema. SKIN: Inspection of the skin reveals no rashes, ulcerations, pallor, or petechiae, +jaundice. NEUROLOGIC: Alert and oriented x 4. Strength and sensation to light touch were grossly intact x 4. Const: Other: easily arousable to verbal stimuli Orientation/consciousness: oriented to person, oriented to place and oriented to time HENMT: Head: Yes normocephalic and Yes atraumatic Eyes: Sclerae: sclerae normal and scleral abnormal (icteris) Chest: Chest palpation & inspection: normal inspection of the chest Resp: Effort & Inspection: normal respiratory effort and no respiratory distress Auscultation: clear to auscultation bilaterally Cardio: Rate: regular rate Rhythm: regular rhythm GI: Palpation (GI): Soft to palpation and nontender Skin: General skin exam: no rashes or lesions noted Neuro: General: oriented to person, oriented to place and oriented to time Cranial nerves: Yes CN's II-XII intact bilaterally and Yes Bilaterally intact EOM present Motor exam (neuro): Asterixis during motor activity present Extrem: General: Yes normal to inspection Assessment & Plan Assessment and plan (1) Hepatic encephalopathy: Status: Acute (2) Hyponatremia: Status: Acute (3) Anemia: Status: Acute Assessment and Plan: HypoNA in setting of liver cirrhosis a=with SNa 118 on adm and grad incr over hosp stay and last SNa 132..suspect d/t AMS and poor po intake and ongoing diarrhea have help to bring up SNa over the past 2-3 days Dsic: challengon PT as she gets into trouble when d/c to home with decvelopment of hypoNa d/t incr PO intake and then gets AMS...ideally d/c to rehab/SNF would be better REC: check lytes this am; ok to r/s diuretics; cont with PO rstriction as is; goal is to mantain SNa > 130 Time Spent With Patient Time: Total time spent is greater than 50% in coordination of care (as documented) at patient's floor/unit and/or counseling patient:
[2020-01-26 12:21] LABS: Glucose, Whole Blood 121 mg/dL (60-115)
--- NOTE | 2020-01-26 13:08 | PM.GICN ---
History of Present Illness Data of Consult Service Date: 01/26/20 Requesting physician: Nino Menjivar Primary Care Provider: Nuvia Bagley NP HPI Reason for consult: Patient with known cirrhosis--anemia, heme + stools. 54 yo female who presented to our ER after she had been seen @ [facility] ER (?) Date. She is followed there by MARTHA Miller. She said she felt weak and unsteady. She has had documented cirrhosis since 2013. Primary etiology was felt to be alcohol. She has not been drinking for 6 months. She had a TIPS done about 2 years ago due to refractory ascites. She is on treatment for Hepatic encephalopathy. She is not very accurate about some of her recent adherence to taking her meds. She had an admission @ [facility] 03/11- to 01/16 for similar presentation as she has here. She lives @ home with her --He does the cooking, shopping, etc. Review of Systems Review of Systems: Yes Unobtainable due to mental status (some variability in answers to my questions, she still seems a little vague) Neurologic: Reports confusion (mildly thought it was Saturday, knows who she is and where she is) Psychiatric: Psychiatric: Reports confusion (mildly thought it was Saturday, knows who she is and where she is) [facility] Past Medical History Medical History (Updated 01/26/20 @ 17:21 by Teresa Garibay MD) Anxiety Chronic back pain Cirrhosis COPD (chronic obstructive pulmonary disease) Depression Diabetes 1.5, managed as type 2 Hyponatremia PTSD (post-traumatic stress disorder) Functional capacity: independent ambulation Surgical History Surgical History History of cholecystectomy Previous back surgery S/P TIPS (transjugular intrahepatic portosystemic shunt) Social History Social History (Updated 01/20/20 @ 11:45 by MARYLU Aguilar) Household Members: Significant Other Housing: House Do you presently have visiting nurse or other home services: Yes Smoking Status: Current every day smoker Tobacco Type: Cigarette Packs Per Day: 0.25 Cigarettes Per Day: 5.0 Smoked in Last 30 Days: Yes Use of substances other than those prescribed or required for medical reasons: No Substance Use Type: Former Substance User Currently Displaying Signs/Symptoms of Drug Intoxication Withdrawal: No Any prior treatment program specific to substance use: No Have you been hit, kicked, punched, or otherwise hurt by someone within the past year? If so, by whom?: No Do you feel safe in your current relationship?: Yes Is there a partner from a previous relationship who is making you feel unsafe now?: No Are you made to feel afraid or neglected: No Advance Directives: No Advance Directives Information Provided: No Do you have thoughts of harming others: None Do you have a plan to hurt others: No Plan Recently lost weight without trying: No service: No Current occupational status: employed Meds Allergies Allergy/AdvReac Type Severity Reaction Status Date / Time lamotrigine [From LAMICTAL] Allergy Intermediate RASH Verified 01/20/20 00:45 amoxicillin [AMOXICILLIN] Allergy Unknown NAUSEA & Verified 01/20/20 00:45 VOMITING Iodinated Contrast Media Allergy Unknown ANAPHYLAXIS Verified 01/20/20 00:45 [CONTRAST, IV] Sulfa (Sulfonamide Allergy Unknown UNKNOWN Verified 01/20/20 00:45 Antibiotics) [SULFA (SULFONAMIDE ANTIBIOTICS)] sulfamethoxazole Allergy Unknown UNK Verified 01/20/20 00:45 [From BACTRIM] trimethoprim [From BACTRIM] Allergy Unknown UNK Verified 01/20/20 00:45 Home Medications Medication Instructions Recorded Confirmed Type Xifaxan 550 mg PO BID 01/20/20 01/20/20 History folic acid 1 mg PO DAILY 01/20/20 01/20/20 History hydroxyzine pamoate 25 mg PO TID 01/20/20 01/20/20 History lactulose 15 g PO TID 01/20/20 01/20/20 History lorazepam 0.5 mg PO TID PRN 01/20/20 01/20/20 History magnesium oxide 400 mg PO BID 01/20/20 01/20/20 History melatonin 3 mg PO BEDTIME PRN 01/20/20 01/20/20 History omeprazole 20 mg PO BID 01/20/20 01/20/20 History potassium chloride 20 meq PO BID 01/20/20 01/20/20 History risperidone 1 mg PO BID 01/20/20 01/20/20 History Physical Exam Vital Signs: Vital Signs: Last Vital Signs Temp 98.1 F 01/26/20 11:35 Pulse 77 01/26/20 11:35 Resp 19 01/26/20 11:35 BP 113/46 L 01/26/20 11:35 Pulse Ox 100 01/26/20 11:35 Body Mass Index 26.4 Const: General: confusion (mildly thought it was Saturday, knows who she is and where she is) and tired appearing Orientation/consciousness: confusion (mildly thought it was Saturday, knows who she is and where she is) Limitations: other limitations (not tested @ this time) Resp: Effort & Inspection: normal respiratory effort, no respiratory distress and not tachypneic Auscultation: rhonchi Cardio: Rate: regular rate Rhythm: regular rhythm GI: Inspection: Yes Abdominal wall edema (1-2+ edema legs) Palpation (GI): Soft to palpation and No Ascites present Auscultation: normal bowel sounds Rectal Exam - Female: deferred Neuro: General: confusion (mildly thought it was Saturday, knows who she is and where she is) Results Labs CBC & Chem 7: 01/26/20 06:39 01/26/20 06:39 Labs: Short CBC 01/20/20 01/20/20 01/20/20 Range/Units 01:10 01:10 09:11 WBC (4.8-10.8) X10*3/uL Hgb (12.0-16.0) g/dl Hct (37-47) % Plt Count (160-400) X10*3/uL Total Bilirubin 4.9 H 8.3 H (0.0-1.0) mg/dL B-Natriuretic Peptide 71 (<100) pg/mL 01/21/20 01/22/20 01/23/20 Range/Units 05:52 08:39 10:54 WBC (4.8-10.8) X10*3/uL Hgb (12.0-16.0) g/dl Hct (37-47) % Plt Count (160-400) X10*3/uL Total Bilirubin 14.1 H 9.9 H 6.4 H (0.0-1.0) mg/dL B-Natriuretic Peptide (<100) pg/mL 01/26/20 01/26/20 Range/Units 06:39 06:39 WBC 7.8 (4.8-10.8) X10*3/uL Hgb 8.0 L (12.0-16.0) g/dl Hct 24.7 L (37-47) % Plt Count 81 L (160-400) X10*3/uL Total Bilirubin 8.0 H (0.0-1.0) mg/dL B-Natriuretic Peptide (<100) pg/mL BMP 01/26/20 06:39 Sodium 132 L Potassium 3.9 Chloride 96 Carbon Dioxide 29 BUN 13 Creatinine 0.90 Calcium 8.3 L D Liver Function 01/26/20 Range/Units 06:39 Total Bilirubin 8.0 H (0.0-1.0) mg/dL AST 76 H (5-31) U/L ALT 38 H (0-31) U/L Alkaline Phosphatase 105 (39-117) U/L Albumin 2.6 L (3.5-5.0) g/dL Microbiology Microbiology Results: Microbiology 01/20/20 02:29 Blood - Venous Blood Culture - Final No growth after 5 days. 01/20/20 01:16 Blood - Venous Blood Culture - Final No growth after 5 days. Assessment and Plan (1) Hepatic encephalopathy: Problem details: Patient's ammonia level has been elevated. She has a TIPS that increases likelihood of elevations. Unclear if she was taking her Lactulose. Status: Acute Xifaxin BID, Lactulose @ least BID--monitor Ammonia, H&H, INR, etc. (2) Anemia: Qualifiers: Anemia type: unspecified type Qualified Code(s): D64.9 - Anemia, unspecified Problem details: Records from [facility] showed that she had been admitted 01/10-01/16. Her H&H were in the same range. I am awaiting record of last egd and colo. Would only consider urgent invasive procedure--general GI management should remain @ [facility] where the bulk of her care has been. Status: Acute IV PPI q 12hr or H2 juan ramon q 12 hr, Monitor H&H (3) Thrombocytopenia: Status: Acute Chronic related to portal hypertension and hypersplenism (4) Coagulopathy: Problem details: INR @ [facility] on above admission was in same range Status: Acute (5) Cirrhosis: Problem details: related to alcohol Status: Acute Cirrhosis stable, queen is to monitor for infection--See Covid neg on admission. Nutrition is next focus--check preAlb in AM (6) Hyponatremia: Problem details: This is a chronic problem for this patient. Present on above admission to [facility]. Also, patient known to Renal due to this hx. Status: Acute Continue current management.
--- NOTE | 2020-01-26 14:54 | HO.PM.IMPN ---
Subjective Subjective Date of Service: 01/26/20 Interval History: DOS 01/26/20 More awake than yesterday FOBT positive Denies hematochezia or melena Cardiovascular Cardiovascular: Denies chest pain and Denies dyspnea Respiratory Respiratory: Denies dyspnea Gastrointestinal Gastrointestinal: Denies abdominal pain Physical Exam Vital Signs: Vital Signs: Last Vital Signs Temp 98.1 F 01/26/20 11:35 Pulse 77 01/26/20 11:35 Resp 19 01/26/20 11:35 BP 113/46 L 01/26/20 11:35 Pulse Ox 100 01/26/20 11:35 Body Mass Index 26.4 Const: General: ill appearing and lethargic Orientation/consciousness: lethargic Eyes: Sclerae: scleral abnormal (icteric) Chest: Chest palpation & inspection: normal inspection of the chest Resp: Effort & Inspection: normal respiratory effort Auscultation: clear to auscultation bilaterally Cardio: Rate: regular rate Rhythm: regular rhythm GI: Inspection: Yes normal to inspection Palpation (GI): Soft to palpation and nontender Neuro: Other: tremulous with superimposed asterixis Objective Data Current Medications Generic Name Dose Route Start Last Admin Trade Name Freq PRN Reason Stop Dose Admin Albuterol Sulfate 2.5 mg 01/20/20 12:57 Albuterol Sulfate (0.083%) 2.5 Mg/3 Ml Vial.Neb INHALE Q4H PRN shortness of breath Folic Acid 1 mg 01/21/20 09:00 01/26/20 08:33 Folic Acid 1 Mg Tablet PO 1 mg DAILY LILLI Administration Gabapentin 300 mg 01/25/20 21:00 01/26/20 14:10 Gabapentin 600 Mg Tablet PO 300 mg TID LILLI Administration Hydroxyzine HCl 25 mg 01/25/20 16:22 Hydroxyzine Hcl 25 Mg Tablet PO TID PRN Anxiety Lactulose 30 gm 01/24/20 08:30 01/26/20 14:12 Lactulose 20 Gm/30 Ml Solution PO 30 gm Q6H LILLI Administration Lorazepam 0.5 mg 01/25/20 16:48 Lorazepam 0.5 Mg Tablet PO TID PRN Anxiety Magnesium Oxide 400 mg 01/20/20 21:00 01/26/20 08:31 Magnesium Oxide 400 Mg Tablet PO 400 mg BID LILLI Administration Melatonin 3 mg 01/20/20 12:57 Melatonin 3 Mg Tablet PO BEDTIME PRN Sleep Omeprazole 20 mg 01/21/20 09:00 01/26/20 08:31 Omeprazole 20 Mg Capsule.Dr PO 20 mg DAILY LILLI Administration Oxycodone HCl 5 mg 01/21/20 17:26 01/26/20 02:13 Oxycodone Hcl Immed Release 5 Mg Tablet PO 5 mg Q6H PRN Administration Pain, Severe (Pain Scale 7-10) Potassium Chloride 20 meq 01/20/20 21:00 01/26/20 08:31 Potassium Chloride Er 20 Meq Tab.Er.Prt PO 20 meq BID LILLI Administration Rifaximin 550 mg 01/20/20 21:00 01/26/20 08:31 Rifaximin 550 Mg Tablet PO 550 mg BID LILLI Administration Risperidone 1 mg 01/20/20 21:00 01/26/20 08:31 Risperidone 1 Mg Tablet PO 1 mg BID LILLI Administration Sodium Chloride 3 ml 01/20/20 16:00 01/26/20 14:14 0.9 % Sodium Chloride Flush 3 Ml Syringe IVFLUSH 3 ml QSHIFT LILLI Administration Labs CBC & Chem 7: 01/26/20 06:39 01/26/20 06:39 Labs: Laboratory Results - last 24 hr 01/25/20 01/25/20 01/25/20 15:24 16:56 21:31 WBC RBC Hgb Hct MCV MCH MCHC RDW Plt Count MPV Immature Gran % (Auto) Neut % (Auto) Lymph % (Auto) [place] % (Auto) Eos % (Auto) Baso % (Auto) Lymph # (Auto) [place] # (Auto) Eos # (Auto) Baso # (Auto) Abs Immat Gran (auto) Absolute Neuts (auto) Absolute Nucleated RBC Nucleated RBC % (auto) PT INR Sodium Potassium Chloride Carbon Dioxide Anion Gap BUN Creatinine Estim Creat Clear Calc Estimated GFR POC Glucose 116 H 169 H Random Glucose Estimat Average Glucose Hemoglobin A1c % Calcium Total Bilirubin AST ALT Alkaline Phosphatase Total Protein Albumin Stool Occult Blood POS 01/26/20 01/26/20 01/26/20 06:39 06:39 06:39 WBC 7.8 RBC 2.52 L Hgb 8.0 L Hct 24.7 L MCV 98.0 MCH 31.7 MCHC 32.4 RDW 20.8 H Plt Count 81 L MPV 10.2 Immature Gran % (Auto) 0.5 H Neut % (Auto) 63.7 Lymph % (Auto) 20.4 [place] % (Auto) 10.6 Eos % (Auto) 4.2 H Baso % (Auto) 0.6 Lymph # (Auto) 1.6 [place] # (Auto) 0.8 Eos # (Auto) 0.3 Baso # (Auto) 0.1 Abs Immat Gran (auto) 0.04 H Absolute Neuts (auto) 5.0 Absolute Nucleated RBC 0.000 Nucleated RBC % (auto) 0.0 PT 21.2 H INR 1.8 H Sodium 132 L Potassium 3.9 Chloride 96 Carbon Dioxide 29 Anion Gap 11 L BUN 13 Creatinine 0.90 Estim Creat Clear Calc 67.5 Estimated GFR > 60 POC Glucose Random Glucose 80 D Estimat Average Glucose Hemoglobin A1c % Calcium 8.3 L D Total Bilirubin 8.0 H AST 76 H ALT 38 H Alkaline Phosphatase 105 Total Protein 5.4 L Albumin 2.6 L Stool Occult Blood 01/26/20 01/26/20 01/26/20 06:39 07:29 11:38 WBC RBC Hgb Hct MCV MCH MCHC RDW Plt Count MPV Immature Gran % (Auto) Neut % (Auto) Lymph % (Auto) [place] % (Auto) Eos % (Auto) Baso % (Auto) Lymph # (Auto) [place] # (Auto) Eos # (Auto) Baso # (Auto) Abs Immat Gran (auto) Absolute Neuts (auto) Absolute Nucleated RBC Nucleated RBC % (auto) PT INR Sodium Potassium Chloride Carbon Dioxide Anion Gap BUN Creatinine Estim Creat Clear Calc Estimated GFR POC Glucose 89 121 H Random Glucose Estimat Average Glucose 71 Hemoglobin A1c % 4.1 Calcium Total Bilirubin AST ALT Alkaline Phosphatase Total Protein Albumin Stool Occult Blood Microbiology Microbiology Results: Microbiology 01/20/20 02:29 Blood - Venous Blood Culture - Final No growth after 5 days. 01/20/20 01:16 Blood - Venous Blood Culture - Final No growth after 5 days. Assessment and Plan (1) Hepatic encephalopathy: Status: Acute (2) Hyponatremia: Status: Acute (3) Anemia: Status: Acute Assessment and Plan: hospital d#7 54yo F with decompensated EtOH cirrhosis, DM2, COPD, chronic back pain, bipolar disorder admitted for severe hypoNa # FOBT+ - will consult GI. Hb stable but pt has decompensated cirrhosis - per Dr Dias's [her GI's] last office note 11/09/19: most recently admitted to the hospital earlier this month with small volume upper GI bleed secondary to NSAID (naproxen) use. The hospitalization was complicated by acute airway obstruction and was intubated for 16 hours, and treated with steroids. She had blood sugar elevations following steroid therapy, but this is getting better now... ...Surveillance for Gastroesophageal Varices: She had previously undergone variceal band ligation for primary prophylaxis, but as she has subsequently undergone a TIPS, there is no indication for any further endoscopic surveillance for varices. There is no indication for a nonselective beta-juan ramon either because of the same reason. # severe hypoNa - due to chronic liver disease - resolved with fluid restriction - continue to hold diuretics, continue to fluid-restrict - Nephrology following # hepatic encephalopathy - on lactulose + rifaximin. adherence emphasized. # lactic acidosis - due to chronic liver disease; not septic # EtOH cirrhosis # coagulopathy # thrombocytopenia # anemia - needs hepatology/GI f/u- sees Dr Kaushik Dias [place] [facility] [place] monitor CBC/INR/LFTs. did get 1u pRBCs 01/20/20 + vit K x 4d # hx EtOH abuse - not in withdrawal at this time; pt denies EtOH for past 6 mo though documentation from other hospitals indicates otherwise # DM2 by hx - A1c only 4.1, will d/c lispro # chronic back pain - continue gabapentin but lowered dose to sedation # mood disorder - continue hydroxyzine (change to prn) + lorazepam + risperidone # dispo - PT eval, done, recommend home with VNA # VTE ppx - SCDs, avoid heparin given thrombocytopenia
[2020-01-26] MEDS: Torsemide 20 MG TABLET 10 MG PO (16:14)
[2020-01-26] MEDS: Spironolactone 25 MG TABLET PO (16:14)
[2020-01-26 17:22] LABS: Glucose, Whole Blood 98 mg/dL (60-115)
[2020-01-26 17:22] LABS: Glucose, Whole Blood 105 mg/dL (60-115)
[2020-01-26 21:19] LABS: Glucose, Whole Blood 90 mg/dL (60-115)
[2020-01-27] VITALS (7 sets, daily range): BP systolic 100–117; BP diastolic 50–62; PULSE 72–86; RESP 16–19; TEMP 36.2–36.8; O2SAT 99–100
[2020-01-27 06:31] LABS: MANUAL DIFF FLAG NO
[2020-01-27 06:47] LABS: Basophils Absolute Auto 0.1 X10*3/uL (0.0-0.2); Basophils Percent Auto 0.9 % (0-2); Eosinophils Absolute Auto 0.3 X10*3/uL (0.0-0.4); Eosinophils Percent Auto 3.7 % (0-4); Hematocrit 24.2 % (37-47); Hemoglobin 8.2 g/dl (12.0-16.0); Imm Gran Abs Auto 0.04 X10*3/uL (0.00-0.03); Imm Gran Pct Auto 0.6 % (0.0-0.4); Lymphocytes Absolute Auto 1.5 X10*3/uL (1.2-4.9); Lymphocytes Percent Auto 21.6 % (20-40); Mean Corpuscular HGB Conc 33.9 g/dl (31.0-35.0); Mean Corpuscular Hemoglobin 32.9 pg (27.0-33.0); Mean Corpuscular Volume 97.2 fL (80-98); Mean Platelet Volume 10.5 fL (9.4-12.3); Monocytes Absolute Auto 0.8 X10*3/uL (0.1-1.2); Monocytes Percent Auto 11.7 % (2-11); Neutrophils Absolute Auto 4.2 X10*3/uL (2.0-8.3); Neutrophils Percent Auto 61.5 % (45-73); Red Blood Count 2.49 X10*6/uL (4.20-5.50); Red Cell Distribution Width 20.9 % (11.0-16.0); White Blood Count 6.8 X10*3/uL (4.8-10.8)
[2020-01-27 07:07] LABS: Platelet Count 75 X10*3/uL (160-400)
[2020-01-27 07:17] LABS: Anion Gap 9 (12-20); Blood Urea Nitrogen 12 mg/dL (9-16); Calcium 8.2 mg/dL (8.4-10.2); Carbon Dioxide 28 mmol/L (22-29); Chloride 98 mmol/L (96-108); Creatinine Clr Calc Pharmacy 64.6; Estimated Glomerular Filt Rate > 60; Glucose Random 90 mg/dL (60-115); Potassium 4.1 mmol/l (3.3-5.1); Sodium 131 mmol/L (135-145)
[2020-01-27 08:11] LABS: Glucose, Whole Blood 90 mg/dL (60-115)
[2020-01-27] MEDS: Pantoprazole Sodium 40 MG/10 ML VIAL IVPUSH ×2 (08:51→16:01)
[2020-01-27] MEDS: Gabapentin 600 MG TABLET 300 MG PO ×3 (08:54→20:55)
[2020-01-27] MEDS: Torsemide 20 MG TABLET 10 MG PO (08:55)
[2020-01-27] MEDS: Magnesium Oxide 400 MG TABLET PO ×2 (08:56→20:55)
[2020-01-27] MEDS: risperiDONE 1 MG TABLET PO ×2 (08:56→20:55)
[2020-01-27] MEDS: Potassium Chloride ER 20 MEQ TAB.ER.PRT PO ×2 (08:56→20:55)
[2020-01-27] MEDS: Spironolactone 25 MG TABLET PO (08:56)
[2020-01-27] MEDS: rifAXIMin 550 MG TABLET PO ×2 (08:56→20:55)
[2020-01-27] MEDS: Folic Acid 1 MG TABLET PO (08:57)
[2020-01-27] MEDS: Lactulose 20 GM/30 ML SOLUTION 30 GM PO ×3 (09:03→20:54)
--- NOTE | 2020-01-27 10:19 | MHC.CARE ---
Recovery Support note: Patient is a 54 year old Lithuanian speaking female with a reported history of alcohol use. Patient adamantly reports that she has not had a drink in the last six months. Patient acknowledges that drinking has severely impacted her health and that continued alcohol use will be detrimental. Patient reports that she has been attending in person AA meetings over the last six months and that has been the only form of support she finds helpful. Patient reports that she is not interested in individual therapy and that she has tried IOP's in the past and did not find them helpful. Discussed virtual AA meetings as a way to get support when she is unable to attend in person meetings. Patient reports her phone doesn't work well but she has a computer at home. Patient provided with information on in person and virtual AA meetings. Patient reports that she has read all of the AA literature and that she is very familiar with AA. Discussed case with patient's RN, Sunni.
--- NOTE | 2020-01-27 11:21 | MHC.CM.PN ---
PER PHYSICIAN ROUNDS, PATIENT TO REMAIN ONE MORE DAY TO MONITOR SODIUM. BALDEMAR NEGRETEA MADE AWARE THAT PLAN IS FOR DISCHARGE Saturday01/28/2020.
[2020-01-27 11:56] LABS: Glucose, Whole Blood 104 mg/dL (60-115)
--- NOTE | 2020-01-27 13:06 | HO.PM.IMPN ---
Subjective Subjective Date of Service: 01/27/20 Interval History: Still very weak. Refuses STR. Denies abd pain, melena, or hematochezia. Physical Exam Vital Signs: Vital Signs: Last Vital Signs Temp 97.5 F 01/27/20 11:56 Pulse 79 01/27/20 11:56 Resp 18 01/27/20 11:56 BP 117/50 L 01/27/20 11:56 Pulse Ox 99 01/27/20 11:56 Body Mass Index 26.4 Const: General: ill appearing and lethargic Orientation/consciousness: lethargic Eyes: Sclerae: scleral abnormal (icteric) Chest: Chest palpation & inspection: normal inspection of the chest Resp: Effort & Inspection: normal respiratory effort Auscultation: clear to auscultation bilaterally Cardio: Rate: regular rate Rhythm: regular rhythm GI: Inspection: Yes normal to inspection Palpation (GI): Soft to palpation and nontender Neuro: asterixis present Objective Data Current Medications Generic Name Dose Route Start Last Admin Trade Name Freq PRN Reason Stop Dose Admin Folic Acid 1 mg 01/21/20 09:00 01/27/20 08:57 Folic Acid 1 Mg Tablet PO 1 mg DAILY LILLI Administration Gabapentin 300 mg 01/25/20 21:00 01/27/20 08:54 Gabapentin 600 Mg Tablet PO 300 mg TID LILLI Administration Hydroxyzine HCl 25 mg 01/25/20 16:22 Hydroxyzine Hcl 25 Mg Tablet PO TID PRN Anxiety Lactulose 30 gm 01/24/20 08:30 01/27/20 09:03 Lactulose 20 Gm/30 Ml Solution PO 30 gm Q6H LILLI Administration Lorazepam 0.5 mg 01/25/20 16:48 Lorazepam 0.5 Mg Tablet PO TID PRN Anxiety Magnesium Oxide 400 mg 01/20/20 21:00 01/27/20 08:56 Magnesium Oxide 400 Mg Tablet PO 400 mg BID LILLI Administration Melatonin 3 mg 01/20/20 12:57 Melatonin 3 Mg Tablet PO BEDTIME PRN Sleep Oxycodone HCl 5 mg 01/26/20 17:29 01/26/20 23:32 Oxycodone Hcl Immed Release 5 Mg Tablet PO 5 mg Q6H PRN Administration Pain, Severe (Pain Scale 7-10) Pantoprazole Sodium 40 mg 01/27/20 08:00 01/27/20 08:51 Pantoprazole Sodium 40 Mg/10 Ml Vial IVPUSH 40 mg BID@0630,1630 LILLI Administration Potassium Chloride 20 meq 01/20/20 21:00 01/27/20 08:56 Potassium Chloride Er 20 Meq Tab.Er.Prt PO 20 meq BID LILLI Administration Rifaximin 550 mg 01/20/20 21:00 01/27/20 08:56 Rifaximin 550 Mg Tablet PO 550 mg BID LILLI Administration Risperidone 1 mg 01/20/20 21:00 01/27/20 08:56 Risperidone 1 Mg Tablet PO 1 mg BID LILLI Administration Sodium Chloride 3 ml 01/20/20 16:00 01/26/20 21:53 0.9 % Sodium Chloride Flush 3 Ml Syringe IVFLUSH 3 ml QSHIFT LILLI Administration Spironolactone 25 mg 01/26/20 15:15 01/27/20 08:56 Spironolactone 25 Mg Tablet PO 25 mg DAILY LILLI Administration Protocol Torsemide 10 mg 01/26/20 15:15 01/27/20 08:55 Torsemide 20 Mg Tablet PO 10 mg DAILY LILLI Administration Protocol Labs CBC & Chem 7: 01/27/20 06:08 01/27/20 06:08 Labs: Laboratory Results - last 24 hr 01/26/20 01/26/20 01/26/20 16:52 17:10 20:48 WBC RBC Hgb Hct MCV MCH MCHC RDW Plt Count MPV Immature Gran % (Auto) Neut % (Auto) Lymph % (Auto) [place] % (Auto) Eos % (Auto) Baso % (Auto) Lymph # (Auto) [place] # (Auto) Eos # (Auto) Baso # (Auto) Abs Immat Gran (auto) Absolute Neuts (auto) Absolute Nucleated RBC Nucleated RBC % (auto) Sodium Potassium Chloride Carbon Dioxide Anion Gap BUN Creatinine Estim Creat Clear Calc Estimated GFR POC Glucose 98 105 90 Random Glucose Calcium Magnesium Prealbumin 01/27/20 01/27/20 01/27/20 06:08 06:08 08:06 WBC 6.8 RBC 2.49 L Hgb 8.2 L Hct 24.2 L MCV 97.2 MCH 32.9 MCHC 33.9 RDW 20.9 H Plt Count 75 L MPV 10.5 Immature Gran % (Auto) 0.6 H Neut % (Auto) 61.5 Lymph % (Auto) 21.6 [place] % (Auto) 11.7 H Eos % (Auto) 3.7 Baso % (Auto) 0.9 Lymph # (Auto) 1.5 [place] # (Auto) 0.8 Eos # (Auto) 0.3 Baso # (Auto) 0.1 Abs Immat Gran (auto) 0.04 H Absolute Neuts (auto) 4.2 Absolute Nucleated RBC 0.000 Nucleated RBC % (auto) 0.0 Sodium 131 L Potassium 4.1 Chloride 98 Carbon Dioxide 28 Anion Gap 9 L BUN 12 Creatinine 0.94 Estim Creat Clear Calc 64.6 Estimated GFR > 60 POC Glucose 90 Random Glucose 90 Calcium 8.2 L Magnesium 2.0 Prealbumin 5.0 L 01/27/20 11:13 WBC RBC Hgb Hct MCV MCH MCHC RDW Plt Count MPV Immature Gran % (Auto) Neut % (Auto) Lymph % (Auto) [place] % (Auto) Eos % (Auto) Baso % (Auto) Lymph # (Auto) [place] # (Auto) Eos # (Auto) Baso # (Auto) Abs Immat Gran (auto) Absolute Neuts (auto) Absolute Nucleated RBC Nucleated RBC % (auto) Sodium Potassium Chloride Carbon Dioxide Anion Gap BUN Creatinine Estim Creat Clear Calc Estimated GFR POC Glucose 104 Random Glucose Calcium Magnesium Prealbumin Microbiology Microbiology Results: Microbiology 01/20/20 02:29 Blood - Venous Blood Culture - Final No growth after 5 days. 01/20/20 01:16 Blood - Venous Blood Culture - Final No growth after 5 days. Assessment and Plan (1) Hepatic encephalopathy: Problem details: Patient's ammonia level has been elevated. She has a TIPS that increases likelihood of elevations. Unclear if she was taking her Lactulose. Status: Acute (2) Hyponatremia: Problem details: This is a chronic problem for this patient. Present on above admission to [facility]. Also, patient known to Renal due to this hx. Status: Acute (3) Anemia: Problem details: Records from [facility] showed that she had been admitted 01/10-01/16. Her H&H were in the same range. I am awaiting record of last egd and colo. Would only consider urgent invasive procedure--general GI management should remain @ [facility] where the bulk of her care has been. Status: Acute Assessment and Plan: hospital d#8 54yo F with decompensated EtOH cirrhosis s/p TIPS, DM2, COPD, chronic back pain, bipolar disorder admitted for severe hypoNa # FOBT+ - Hb stable, appreciate GI consult, place on IV PPI - per last GI office note 11/09/[address] Dias at [facility]: most recently admitted to the hospital earlier this month with small volume upper GI bleed secondary to NSAID (naproxen) use. The hospitalization was complicated by acute airway obstruction and was intubated for 16 hours, and treated with steroids. She had blood sugar elevations following steroid therapy, but this is getting better now... ...Surveillance for Gastroesophageal Varices: She had previously undergone variceal band ligation for primary prophylaxis, but as she has subsequently undergone a TIPS, there is no indication for any further endoscopic surveillance for varices. There is no indication for a nonselective beta-juan ramon either because of the same reason. # severe hypoNa, resolving - due to chronic liver disease - improved with fluid restriction to 1.5 L/d - restarted diuretics but at half prior dose - Nephrology following - monitor BMP as outpt # hepatic encephalopathy - on lactulose + rifaximin # lactic acidosis - due to chronic liver disease; not septic # EtOH cirrhosis # coagulopathy # thrombocytopenia # anemia - needs hepatology/GI f/u with Arun at [facility] - monitor CBC/INR/LFTs. did get 1u pRBCs 01/20/20 + vit K x 4d # hx EtOH abuse - not in withdrawal at this time; pt denies EtOH for past 6 mo though documentation from other hospitals indicates otherwise # DM2 by hx - A1c only 4.1, d/c'ed lispro # chronic back pain - continue gabapentin but lowered dose to sedation # mood disorder - continue hydroxyzine + lorazepam + risperidone # dispo - refuses STR, likely home tomorrow with VNA # VTE ppx - SCDs, avoid heparin given thrombocytopenia
[2020-01-27] MEDS: 0.9 % Sodium Chloride Flush 3 ML SYRINGE IVFLUSH ×2 (16:03→21:03)
[2020-01-27] MEDS: oxyCODONE HCl Immed Release 5 MG TABLET PO (16:06)
[2020-01-27 16:37] LABS: Glucose, Whole Blood 119 mg/dL (60-115)
[2020-01-27 21:32] LABS: Glucose, Whole Blood 130 mg/dL (60-115)
[2020-01-28] MEDS: Lactulose 20 GM/30 ML SOLUTION 30 GM PO ×3 (02:31→14:29)
[2020-01-28] MEDS: oxyCODONE HCl Immed Release 5 MG TABLET PO (03:48)
[2020-01-28 04:00] VITALS: BP 140/63; PULSE 89; RESP 19; TEMP 36.7; O2SAT 100
[2020-01-28] MEDS: Pantoprazole Sodium 40 MG/10 ML VIAL IVPUSH ×2 (06:11→14:29)
[2020-01-28 06:59] LABS: MANUAL DIFF FLAG NO
[2020-01-28 07:09] LABS: Basophils Absolute Auto 0.1 X10*3/uL (0.0-0.2); Basophils Percent Auto 0.9 % (0-2); Eosinophils Absolute Auto 0.1 X10*3/uL (0.0-0.4); Eosinophils Percent Auto 1.6 % (0-4); Hematocrit 24.1 % (37-47); Hemoglobin 7.9 g/dl (12.0-16.0); Imm Gran Abs Auto 0.02 X10*3/uL (0.00-0.03); Imm Gran Pct Auto 0.3 % (0.0-0.4); Lymphocytes Absolute Auto 1.2 X10*3/uL (1.2-4.9); Lymphocytes Percent Auto 20.2 % (20-40); Mean Corpuscular HGB Conc 32.8 g/dl (31.0-35.0); Mean Corpuscular Hemoglobin 32.4 pg (27.0-33.0); Mean Corpuscular Volume 98.8 fL (80-98); Mean Platelet Volume 10.5 fL (9.4-12.3); Monocytes Absolute Auto 0.7 X10*3/uL (0.1-1.2); Monocytes Percent Auto 12.9 % (2-11); Neutrophils Absolute Auto 3.7 X10*3/uL (2.0-8.3); Neutrophils Percent Auto 64.1 % (45-73); Red Blood Count 2.44 X10*6/uL (4.20-5.50); White Blood Count 5.7 X10*3/uL (4.8-10.8)
[2020-01-28 07:12] LABS: INTERNATIONAL NORM RATIO 1.7 (0.9-1.1); Prothrombin Time 20.1 SEC (10.8-13.0)
[2020-01-28 07:24] LABS: Ammonia 72 umol/L (13-55)
[2020-01-28 07:38] LABS: Platelet Count 71 X10*3/uL (160-400)
[2020-01-28 07:54] LABS: Alanine Aminotransferase 35 U/L (0-31); Albumin Level 2.5 g/dL (3.5-5.0); Alkaline Phosphatase 99 U/L (39-117); Anion Gap 10 (12-20); Aspartate Amino Transferase 73 U/L (5-31); Bilirubin Total 5.9 mg/dL (0.0-1.0); Blood Urea Nitrogen 9 mg/dL (9-16); Calcium 7.9 mg/dL (8.4-10.2); Carbon Dioxide 25 mmol/L (22-29); Chloride 101 mmol/L (96-108); Creatinine Clr Calc Pharmacy 69.8; Estimated Glomerular Filt Rate > 60; Glucose Random 110 mg/dL (60-115); Potassium 3.7 mmol/l (3.3-5.1); Sodium 132 mmol/L (135-145); Total Protein 5.2 g/dL (6.5-8.0)
[2020-01-28] MEDS: Gabapentin 600 MG TABLET 300 MG PO ×2 (07:59→14:29)
[2020-01-28 08:00] VITALS: BP 105/65; PULSE 82; RESP 19; TEMP 36.3; O2SAT 100
[2020-01-28] MEDS: Folic Acid 1 MG TABLET PO (08:01)
[2020-01-28] MEDS: rifAXIMin 550 MG TABLET PO (08:01)
[2020-01-28] MEDS: Magnesium Oxide 400 MG TABLET PO (08:01)
[2020-01-28] MEDS: Potassium Chloride ER 20 MEQ TAB.ER.PRT PO (08:01)
[2020-01-28] MEDS: Spironolactone 25 MG TABLET PO (08:01)
[2020-01-28] MEDS: Torsemide 20 MG TABLET 10 MG PO (08:01)
[2020-01-28] MEDS: risperiDONE 1 MG TABLET PO (08:02)
[2020-01-28 08:04] LABS: Glucose, Whole Blood 95 mg/dL (60-115)
[2020-01-28] MEDS: 0.9 % Sodium Chloride Flush 3 ML SYRINGE IVFLUSH ×2 (08:06→14:29)
[2020-01-28 09:37] VITALS: BP 105/65; PULSE 82; O2SAT 100
--- NOTE | 2020-01-28 10:59 | PM.PNNEP ---
Subjective Subjective Interval history: Looks better, wants to go home Physical Exam Vital Signs: Vital Signs: Last Vital Signs Temp 97.4 F 01/28/20 08:00 Pulse 82 01/28/20 09:37 Resp 19 01/28/20 08:00 BP 105/65 01/28/20 09:37 Pulse Ox 100 01/28/20 09:37 Body Mass Index 26.4 VITAL SIGNS: Reviewed. GENERAL: Chronically ill, moderate distress. HEAD: Normocephalic/atraumatic, EYES: PERRLA, EOMI intact without pain, no nystagmus/pallor, +icterus EARS: Ext canals without abnormality, TMs non-bulging and non-erythematous NOSE: Nares patent bilateral OROPHARYNX: no oral lesions noted, posterior pharynx clear and non-erythematous without noted tonsillar enlargement/erythema/exudates NECK: Supple, no adenopathy LUNGS: Decreased breath sounds b/l. No adventitious sounds or accessory muscle use. SpO2<100> CARDIOVASCULAR: Regular rate and rhythm without noted murmurs, no JVD or lower extremity edema. ABDOMEN: Soft, non-tender, distended with bowel sounds. No fluid wave noted. No rigidity. No guarding. No palpable masses or hernias noted LIZ: no lesions or tags, soft stool in rectal vault without gross blood on finger and good rectal tone MUSCULOSKELETAL: No tenderness, deformities, or effusions noted on gross inspection. EXTREMITIES: No cyanosis, clubbing or edema. SKIN: Inspection of the skin reveals no rashes, ulcerations, pallor, or petechiae, +jaundice. NEUROLOGIC: Alert and oriented x 4. Strength and sensation to light touch were grossly intact x 4. Const: Other: easily arousable to verbal stimuli Orientation/consciousness: oriented to person, oriented to place and oriented to time HENMT: Head: Yes normocephalic and Yes atraumatic Eyes: Sclerae: sclerae normal and scleral abnormal (icteris) Chest: Chest palpation & inspection: normal inspection of the chest Resp: Effort & Inspection: normal respiratory effort and no respiratory distress Auscultation: clear to auscultation bilaterally Cardio: Rate: regular rate Rhythm: regular rhythm GI: Palpation (GI): Soft to palpation and nontender Skin: General skin exam: no rashes or lesions noted Neuro: General: oriented to person, oriented to place and oriented to time Cranial nerves: Yes CN's II-XII intact bilaterally and Yes Bilaterally intact EOM present Motor exam (neuro): Asterixis during motor activity present Extrem: General: Yes normal to inspection Assessment & Plan Assessment and plan (1) Hepatic encephalopathy: Problem details: Patient's ammonia level has been elevated. She has a TIPS that increases likelihood of elevations. Unclear if she was taking her Lactulose. Status: Acute (2) Hyponatremia: Problem details: This is a chronic problem for this patient. Present on above admission to [facility]. Also, patient known to Renal due to this hx. Status: Acute (3) Anemia: Problem details: Records [place] [facility] showed that she had been admitted 01/10-01/16. Her H&H were in the same range. I am awaiting record of last egd and colo. Would only consider urgent invasive procedure--general GI management should remain @ [facility] where the bulk of her care has been. Status: Acute Assessment and Plan: HypoNA in setting of liver cirrhosis a with SNa 118 on adm and grad incr over hosp stay and SNa remains atble 132.. Dsic: challenging PT as she gets into trouble when d/c to home with decvelopment of hypoNa d/t incr PO intake and then gets AMS...ideally d/c to rehab/SNF would be better REC: check lytes as outpt qwk; ok to r/s diuretics; cont with PO rstriction as is; goal is to mantain SNa > 130 Time Spent With Patient Time: Total time spent is greater than 50% in coordination of care (as documented) at patient's floor/unit and/or counseling patient: Procedures Abscess I/D Date of Service: 01/28/20
[2020-01-28 11:11] VITALS: BP 102/52; PULSE 86; RESP 19; TEMP 36.7; O2SAT 100
[2020-01-28 11:59] LABS: Glucose, Whole Blood 155 mg/dL (60-115)
--- NOTE | 2020-01-28 12:57 | MHC.CM.PN ---
CALL TO [facility]. ([phone]) PER CONVERSATION , PATIENT IS ACTIVE WITH [facility], AND WILL RESUME THESE SERVICES. [facility] ([phone]) CALLED THIS GILL BOX OPERATOR TODAY TO EXPLAIN THE MISUNDERSTANDING, AND ASK THAT THE REFERRAL BE UPDATED TO INCLUDE THEIR SERVICES. PATIENT (TODAY) STATES THAT SHE DOES HAVE VNA IN THE HOME, AND IT IS [facility].
--- NOTE | 2020-01-28 13:18 | P.DS_ITS ---
DS: Providers Provider Date of admission: 01/20/20 11:29 Primary care physician: Nuvia Bagley NP Consults: 01/20/20 09:49 Consult to Nephrology Routine Consulting Provider: Gerardo Coppola Reason for consultation: Hyponatremia Has provider been notified: Yes 01/24/20 08:26 Consult for Sitter Routine Reason for consultation: Extreme agitation and confusion 01/26/20 11:20 Consult to Gastroenterology Routine Consulting Provider: [facility] Gastroenterology Services Reason for consultation: FOBT+, anemia in decompesnated cirrhotic; though Hb stable 01/26/20 15:02 Consult to Care Team Routine Comment: Reason for consultation: EtOH relapses disqualifying her from liver transplant DS: Diagnosis Discharge Diagnosis (1) Hepatic encephalopathy: Status: Acute (2) Hyponatremia: Status: Acute (3) Anemia: Status: Acute (4) Thrombocytopenia: Status: Acute (5) Coagulopathy: Status: Acute Problem details: INR @ [facility] on above admission was in same range (6) Cirrhosis: Status: Acute Problem details: related to alcohol (7) Lactic acid acidosis: Status: Acute DS: Medications Discharge Medications Home Medications: Home Medications Medication Instructions Recorded Confirmed Xifaxan 550 mg PO BID 01/20/20 01/20/20 folic acid 1 mg PO DAILY 01/20/20 01/20/20 hydroxyzine pamoate 25 mg PO TID 01/20/20 01/20/20 lactulose 15 g PO TID 01/20/20 01/20/20 lorazepam 0.5 mg PO TID PRN 01/20/20 01/20/20 magnesium oxide 400 mg PO BID 01/20/20 01/20/20 melatonin 3 mg PO BEDTIME PRN 01/20/20 01/20/20 omeprazole 20 mg PO BID 01/20/20 01/20/20 potassium chloride 20 meq PO BID 01/20/20 01/20/20 risperidone 1 mg PO BID 01/20/20 01/20/20 Previous Rx's Medication Instructions Recorded gabapentin 300 mg PO TID #90 cap 01/26/20 DS: Summary Hospital Course Hospital Course: The patient was admitted to the hospital for severe hyponatremia attributed to chronic liver disease. Sodium improved with fluid restriction to 1500 mL per day. She had severe hepatic encephalopathy which was treated with lactulose and rifaximin. Lactic acidosis was attributed to chronic liver disease; she was not septic. Regarding her cirrhosis with associated coagulopathy, thrombocytopenia, and anemia, she follows with Dr. Kaushik Dias, turning machine operator helper at [facility]. She did get transfused 1 unit of packed red blood cells and did receive vitamin K. Fecal occult blood test was positive and hemoglobin remained stable without intervention other than continuing PPI. short-term rehabilitation was recommended but she declined; she was sent home with visiting nurse services and should have repeat laboratory studies [CBCd, CMP, and INR] in 1 week. The importance of maintaining sobriety from alcohol so that she can qualify for liver transplant was counseled extensively. om other hospitals indicates otherwise Time Spent with Patient Time attestation: Total time spent providing and/or coordinating discharge services: 40 Physical Exam Vital Signs: Vital Signs: Last Vital Signs Temp 98.0 F 01/28/20 11:11 Pulse 86 01/28/20 11:11 Resp 19 01/28/20 11:11 BP 102/52 L 01/28/20 11:11 Pulse Ox 100 01/28/20 11:11 Body Mass Index 26.4 Const: General: ill appearing and lethargic Orientation/consciousness: let hargic Eyes: Sclerae: scleral abnormal (icteric) Chest: Chest palpation & inspection: normal inspection of the chest Resp: Effort & Inspection: normal respiratory effort Auscultation: clear to auscultation bilaterally Cardio: Rate: regular rate Rhythm: regular rhythm GI: Inspection: Yes normal to inspection Palpation (GI): Soft to palpation and nontender Neuro: asterixis present DS: Data Data Completed and Pending Labs on day of discharge: Laboratory Results - last 24 hr 01/27/20 01/27/20 01/28/20 16:23 21:25 06:38 WBC RBC Hgb Hct MCV MCH MCHC RDW Plt Count MPV Immature Gran % (Auto) Neut % (Auto) Lymph % (Auto) Mcintosh % (Auto) Eos % (Auto) Baso % (Auto) Lymph # (Auto) Mcintosh # (Auto) Eos # (Auto) Baso # (Auto) Abs Immat Gran (auto) Absolute Neuts (auto) Absolute Nucleated RBC Nucleated RBC % (auto) PT INR Sodium Potassium Chloride Carbon Dioxide Anion Gap BUN Creatinine Estim Creat Clear Calc Estimated GFR POC Glucose 119 H 130 H Random Glucose Calcium Total Bilirubin AST ALT Alkaline Phosphatase Ammonia 72 H Total Protein Albumin 11/12/20 11/12/20 11/12/20 06:38 06:38 06:38 WBC 5.7 RBC 2.44 L Hgb 7.9 L Hct 24.1 L MCV 98.8 H MCH 32.4 MCHC 32.8 RDW 21.0 H Plt Count 71 L MPV 10.5 Immature Gran % (Auto) 0.3 Neut % (Auto) 64.1 Lymph % (Auto) 20.2 Mcintosh % (Auto) 12.9 H Eos % (Auto) 1.6 Baso % (Auto) 0.9 Lymph # (Auto) 1.2 Mcintosh # (Auto) 0.7 Eos # (Auto) 0.1 Baso # (Auto) 0.1 Abs Immat Gran (auto) 0.02 Absolute Neuts (auto) 3.7 Absolute Nucleated RBC 0.000 Nucleated RBC % (auto) 0.0 PT 20.1 H INR 1.7 H Sodium 132 L Potassium 3.7 Chloride 101 Carbon Dioxide 25 Anion Gap 10 L BUN 9 Creatinine 0.87 Estim Creat Clear Calc 69.8 Estimated GFR > 60 POC Glucose Random Glucose 110 Calcium 7.9 L Total Bilirubin 5.9 H AST 73 H ALT 35 H Alkaline Phosphatase 99 Ammonia Total Protein 5.2 L Albumin 2.5 L 01/28/20 01/28/20 07:19 11:10 WBC RBC Hgb Hct MCV MCH MCHC RDW Plt Count MPV Immature Gran % (Auto) Neut % (Auto) Lymph % (Auto) Mcintosh % (Auto) Eos % (Auto) Baso % (Auto) Lymph # (Auto) Mcintosh # (Auto) Eos # (Auto) Baso # (Auto) Abs Immat Gran (auto) Absolute Neuts (auto) Absolute Nucleated RBC Nucleated RBC % (auto) PT INR Sodium Potassium Chloride Carbon Dioxide Anion Gap BUN Creatinine Estim Creat Clear Calc Estimated GFR POC Glucose 95 155 H Random Glucose Calcium Total Bilirubin AST ALT Alkaline Phosphatase Ammonia Total Protein Albumin ITS Impressions Chest X-Ray 01/20/20 01:03 IMPRESSION: No evidence for acute disease. Chest CT 01/20/20 02:47 IMPRESSION: Few nonspecific patchy areas of groundglass opacification within the superior segments of both lower lobes. TIPS in place within the liver. A small amount of upper abdominal free fluid. Automated exposure control (Care Dose) Adjustment of the mA and/or kv according to patient size (this includes techniques or standardized protocols for targeted exams where dose is matched to indication / reason for exam; i.e. extremities or head). Discharge Plan Discharge Anticipated Discharge Date/Time: 01/28/20 13:16 Patient Disposition: Home Health Service Referrals: [facility] [Outside] Nuvia Bagley, PIPE [employer]ACKER [Primary Care Provider] - Discharge Medications: New gabapentin 300 mg capsule 300 mg PO TID Qty: 90 RF: 0 spironolactone 25 mg Tablet 25 mg PO DAILY Qty: 30 RF: 0 torsemide 20 mg Tablet 10 mg PO DAILY 30 Days Qty: 15 RF: 0 Continued potassium chloride 20 mEq tablet,ER particles/crystals 20 meq PO BID RF: 0 magnesium oxide 400 mg (241.3 mg magnesium) tablet 400 mg PO BID RF: 0 lorazepam 0.5 mg tablet 0.5 mg PO TID PRN (Reason: Anxiety) RF: 0 folic acid 1 mg tablet 1 mg PO DAILY RF: 0 hydroxyzine pamoate 25 mg capsule 25 mg PO TID RF: 0 Xifaxan 550 mg tablet 550 mg PO BID RF: 0 melatonin 3 mg Tablet 3 mg PO BEDTIME PRN (Reason: Sleep) RF: 0 omeprazole 20 mg Capsule,Delayed Release(Dr/Ec) 20 mg PO BID RF: 0 lactulose 10 gram/15 mL (15 mL) Solution 15 g PO TID RF: 0 risperidone 1 mg tablet 1 mg PO BID RF: 0 Discontinued gabapentin 600 mg tablet 600 mg PO TID RF: 0 spironolactone 50 mg Tablet 50 mg PO DAILY RF: 0 torsemide 20 mg Tablet 20 mg PO DAILY RF: 0 Discharge Orders: Discharge Order (Routine); Ordered 01/28/20 Ordered By: Nino Menjivar Diet: advance to usual diet and low salt diet Activity on Discharge: home PT/OT Patient Instructions: Cirrhosis (DC), Hepatic Encephalopathy (DC) Stand Alone Forms: Community Support Other Ambulatory Orders: Complete Blood Count Auto Diff (Routine) Timeframe: 1 Week Facility: [facility] - Location: Laboratory Ordered By: Nino Menjivar Comprehensive Met. Panel (Routine) Timeframe: 1 Week Facility: [facility] - Location: Laboratory Ordered By: Nino Menjivar Prothrombin Time INR (Routine) Timeframe: 1 Week Facility: [facility] - Location: Laboratory Ordered By: Nino Menjivar Activity Restrictions/Additional Instructions: No alcohol. Visit Report Forms: Patient Portal Discharge page Care Plan Goals: liver transplant Health Concerns: cirrhosis Plan of Treatment: avoid alcohol completely VNA/home physical therapy do not drink more than 1500 mL/day of fluids laboratory studies in 1 week: CMP, CBCd, PT/INR follow up with your primary care provider within 1 week follow up with your reporting process consultant Dr Dias at [facility] within 2 weeks decrease gabapentin to 300 mg 3x a day decrease spironolactone to 25 mg daily decrease torsemide to 10 mg daily continue rifaximin 550 mg twice daily; take lactulose as frequently as needed to achieve 4 soft bowel movements per day
== END 2020-01-28 16:07 | disposition home health service (06) | DRG 433 ==
LOC: HO.ED 10:07 → HO.IMC 12:14 → HO.S3 01-24 00:25
PROVIDERS: Internal Medicine Nephrology; Physician Assistant Medical; Admitting Provider Internal Medicine; Emergency Provider Student in an Organized Health Care Education/Training Program; PCP Nurse Practitioner; Visit Provider Family Medicine
DX: K70.30 Alcoholic cirrhosis of liver without ascites (principal); D68.9 Coagulation defect, unspecified; E87.1 Hypo-osmolality and hyponatremia; E87.2 Acidosis; K72.90 Hepatic failure, unspecified without coma; F41.9 Anxiety disorder, unspecified; J44.9 Chronic obstructive pulmonary disease, unspecified; F17.210 Nicotine dependence, cigarettes, uncomplicated; G89.29 Other chronic pain; R19.5 Other fecal abnormalities; E11.9 Type 2 diabetes mellitus without complications; F10.10 Alcohol abuse, uncomplicated; D69.6 Thrombocytopenia, unspecified; Z91.19 Patient's noncompliance with other medical treatment and regimen; Z71.6 Tobacco abuse counseling; Z96.89 Presence of other specified functional implants; Z20.828 Contact with and (suspected) exposure to other viral communicable diseases; Z88.0 Allergy status to penicillin; Z88.2 Allergy status to sulfonamides; Z79.899 Other long term (current) drug therapy
CPT/HCPCS: 36415; 36430; 36600; 71045; 71250; 80048; 80051; 80053; 80076; 80307; 80320; 81003; 82140; 82272; 82803; 82947; 83036; 83605; 83690; 83735; 83880; 83930; 83935; 84100; 84134; 84484; 85025; 85027; 85060; 85610; 86850; 86900; 86901; 86920; 86923; 87040; 93005; 96361; 96365; 96366; 97116; 97162; 97530; 99285; J3430; P9016; P9047; U0003

== ENCOUNTER 2020-02-09 12:34 | Inpatient (IN) | payer OTHER, SELFPAY ==
[2020-02-09] VITALS (7 sets, daily range): BP systolic 113–140; BP diastolic 50–65; PULSE 81–90; RESP 18–20; TEMP 36.5–36.7; O2SAT 97–100; BMI 34.7
[2020-02-09 13:58] LABS: Basophils Percent Auto 0.7 % (0-2); Eosinophils Absolute Auto 0.2 X10*3/uL (0.0-0.4); Eosinophils Percent Auto 3.7 % (0-4); Hematocrit 22.9 % (37-47); Hemoglobin 7.5 g/dl (12.0-16.0); Imm Gran Abs Auto 0.02 X10*3/uL (0.00-0.03); Imm Gran Pct Auto 0.5 % (0.0-0.4); Lymphocytes Percent Auto 22.9 % (20-40); MANUAL DIFF FLAG NO; Mean Corpuscular HGB Conc 32.8 g/dl (31.0-35.0); Mean Corpuscular Hemoglobin 32.2 pg (27.0-33.0); Mean Corpuscular Volume 98.3 fL (80-98); Monocytes Absolute Auto 0.6 X10*3/uL (0.1-1.2); Neutrophils Absolute Auto 2.6 X10*3/uL (2.0-8.3); Neutrophils Percent Auto 58.2 % (45-73); Red Blood Count 2.33 X10*6/uL (4.20-5.50); Red Cell Distribution Width 17.5 % (11.0-16.0); White Blood Count 4.4 X10*3/uL (4.8-10.8)
[2020-02-09 14:07] LABS: Platelet Count 94 X10*3/uL (160-400)
[2020-02-09 14:20] LABS: Ammonia 93 umol/L (13-55)
[2020-02-09 14:35] LABS: Alanine Aminotransferase 20 U/L (0-31); Albumin Level 2.3 g/dL (3.5-5.0); Alkaline Phosphatase 135 U/L (39-117); Anion Gap 9 (12-20); Aspartate Amino Transferase 39 U/L (5-31); Bilirubin Direct 2.1 mg/dL (0.0-0.5); Blood Urea Nitrogen 6 mg/dL (9-16); Calcium 7.7 mg/dL (8.4-10.2); Carbon Dioxide 27 mmol/L (22-29); Chloride 99 mmol/L (96-108); Creatinine Clr Calc Pharmacy 104.7; Estimated Glomerular Filt Rate > 60; Glucose Random 121 mg/dL (60-115); Magnesium 1.7 mg/dL (1.6-2.6); Potassium 3.8 mmol/l (3.3-5.1); Sodium 131 mmol/L (135-145); Total Protein 5.2 g/dL (6.5-8.0)
--- NOTE | 2020-02-09 15:43 | ECG_ITS ---
Test Reason : AMS Blood Pressure : / mmHG Vent. Rate : 083 BPM Atrial Rate : 083 BPM P-R Int : 138 ms QRS Dur : 082 ms QT Int : 430 ms P-R-T Axes : 070 054 021 degrees QTc Int : 505 ms Normal sinus rhythm Normal ECG When compared with ECG of 20-JAN-2020 15:27, No significant change was found Referred By: Barb Cedeño Electronically Signed By:MEE MONROY MD
--- NOTE | 2020-02-09 15:43 | XR_ITS ---
EXAMINATION: XR CHEST CLINICAL INFORMATION: Shortness of breath COMPARISON: Chest radiographs 01/20/2020, 10/09/2019, CT chest 01/20/2020 TECHNIQUE: 2 views of the chest were obtained. FINDINGS: There is coarsening of the central bronchovascular markings with question of groundglass opacity anteriorly on lateral view. There is no lobar or segmental airspace consolidation and no effusion. The heart is normal in size. The vascularity is normal. The hilar and mediastinal contours and bony structures are unremarkable. XR/XR chest 2V IMPRESSION: Diffuse coarsening central bronchovascular markings with question of small groundglass opacity anterior upper lobes. No effusion.
--- NOTE | 2020-02-09 16:14 | ED_ITS ---
HPI - Altered Mental Status General Chief Complaint: Altered Mental Status Stated Complaint: ?abnormal labs Time Seen by Provider: 02/09/20 13:38 Source: patient Mode of arrival: ambulatory Limitations: no limitations History of Present Illness HPI narrative: 54-year-old female with a past medical history of alcoholic liver cirrhosis, chronic back pain, anxiety, COPD, depression, type 2 diabetes, hyponatremia, PTSD here with complaints of feeling confused and generally weak and short of breath since yesterday. Patient tells me she feels like her ammonia level is high. She tells me she has not been compliant with her lactulose at home. And that she has only taken 1 dose over the last 3 days. She denies any cough or fever or chest pain. No vomiting or diarrhea or abdominal pain. Of note, patient admitted January 19 for hepatic encephalopathy, hyponatremia, anemia, thrombocytopenia, coagulopathy and lactic acid acidosis. MD complaint: confusion Onset (ago): day(s) Severity: mild Consistency of symptoms: waxing and waning Context: liver disease Associated symptoms: shortness of breath Related Data Home Medications Medication Instructions Recorded Confirmed Xifaxan 550 mg PO BID 01/20/20 02/09/20 folic acid 1 mg PO DAILY 01/20/20 02/09/20 hydroxyzine pamoate 25 mg PO TID PRN 01/20/20 02/09/20 lactulose 15 g PO TID 01/20/20 02/09/20 lorazepam 0.5 mg PO TID PRN 01/20/20 02/09/20 magnesium oxide 400 mg PO BID 01/20/20 02/09/20 melatonin 3 mg PO BEDTIME PRN 01/20/20 02/09/20 omeprazole 20 mg PO BID 01/20/20 02/09/20 potassium chloride 20 meq PO BID 01/20/20 02/09/20 risperidone 1 mg PO BID 01/20/20 02/09/20 albuterol sulfate 2 puff INHALATION Q4H PRN 02/09/20 02/09/20 calcium carbonate [Antacid Ext Str 1 tab PO TID 02/09/20 02/09/20 (calcium carb)] cetirizine 1 tab PO DAILY 02/09/20 02/09/20 fluticasone propionate [Flovent 1 puff INHALATION BID 02/09/20 02/09/20 HFA] thiamine HCl (vitamin B1) 1 tab PO DAILY 02/09/20 02/09/20 Previous Rx's Medication Instructions Recorded gabapentin 300 mg PO TID #90 cap 01/26/20 spironolactone 25 mg PO DAILY #30 tab 01/28/20 torsemide 10 mg PO DAILY 30 Days #15 tab 01/28/20 Allergies Allergy/AdvReac Type Severity Reaction Status Date / Time lamotrigine [From LAMICTAL] Allergy Intermediate RASH Verified 01/20/20 00:45 amoxicillin [AMOXICILLIN] Allergy Unknown NAUSEA & Verified 01/20/20 00:45 VOMITING Iodinated Contrast Media Allergy Unknown ANAPHYLAXIS Verified 01/20/20 00:45 [CONTRAST, IV] Sulfa (Sulfonamide Allergy Unknown UNKNOWN Verified 01/20/20 00:45 Antibiotics) [SULFA (SULFONAMIDE ANTIBIOTICS)] sulfamethoxazole Allergy Unknown UNK Verified 01/20/20 00:45 [From BACTRIM] trimethoprim [From BACTRIM] Allergy Unknown UNK Verified 01/20/20 00:45 Review of Systems Review of Systems: Yes all other systems are reviewed and are negative Constitutional: Constitutional: Reports no additional constitutional complaints, Denies body ache(s), Denies chills, Denies fever(s), Denies headache(s) and Reports weakness Eyes: Eyes: Reports no additional eye complaints and Denies change in vision ENT: Reports system reviewed and no additional complaints, except as documented, Denies dizziness, Denies headache(s), Denies nasal congestion, Denies nasal discharge and Denies neck pain Cardiovascular: Cardiovascular: Reports no additional cardiovascular complaints, Denies chest pain, Denies leg edema and Reports dyspnea Respiratory: Respiratory: Reports no additional respiratory complaints, Denies cough and Reports dyspnea Gastrointestinal: Gastrointestinal: Reports no additional gastrointestinal complaints, Denies abdominal pain, Denies diarrhea, Denies nausea and Denies vomiting Genitourinary: Genitourinary: Reports no additional female genitourinary complaints and Denies urinary incontinence Musculoskeletal: Musculoskeletal: Reports no additional musculoskeletal complaints, Denies back pain, Denies arthralgias, Denies joint swelling, Denies neck pain, Denies numbness and Denies tingling Integumentary/Breasts: Skin/Breast: Reports system reviewed and no additional complaints, except as docu and Denies rash Neurologic: Reports system reviewed and no additional complaints, except as documented, Denies Abnormal speech present, Reports confusion, Denies dizziness, Denies headache(s), Denies numbness, Denies tingling and Reports weakness Psychiatric: Psychiatric: Reports confusion PMF Past Medical History Attestation statement: The following information was validated with the patient. Source: old records reviewed and nursing notes reviewed Medical History Anemia Anxiety Chronic back pain Cirrhosis Coagulopathy COPD (chronic obstructive pulmonary disease) Depression Diabetes 1.5, managed as type 2 Hyponatremia PTSD (post-traumatic stress disorder) Thrombocytopenia Surgical History History of cholecystectomy Previous back surgery S/P TIPS (transjugular intrahepatic portosystemic shunt) Social History Social History Household Members: Significant Other Housing: House Alcohol intake: never Smoking Status: Current every day smoker Tobacco Type: Cigarette Packs Per Day: 0.25 Cigarettes Per Day: 5.0 Use of substances other than those prescribed or required for medical reasons: No Substance Use Type: Former Substance User Advance Directives: No Advance Directives Information Provided: Yes service: No Current occupational status: employed Physical Exam Vital Signs: Vital Signs: Last Vital Signs Temp 97.8 F 02/09/20 18:00 Pulse 88 02/09/20 18:00 Resp 18 02/09/20 18:00 BP 133/50 L 02/09/20 18:00 Pulse Ox 100 02/09/20 18:00 Body Mass Index 34.7 Const: General: confusion Orientation/consciousness: patient oriented x3 and confusion Limitations: no limitations HENMT: Head: Yes normal to inspection Ears: hearing grossly normal bilaterally General nose exam: Normal external nose present Face and sinus: Yes normal facial exam Mouth: Normal oral and palatal mucosa present Throat: Yes posterior oropharynx normal Eyes: General: appearance normal, both eyes and all related structures Pupils: Equal, round and reactive pupils present Neck: Neck: Yes normal visual inspection Chest: Chest palpation & inspection: normal inspection of the chest Resp: Effort & Inspection: normal respiratory effort Auscultation: wheezes (expiratory wheezing noted) Cardio: Rate: regular rate Rhythm: regular rhythm Peripheral pulses: Peripheral pulses 2+ throughout GI: Inspection: Yes normal to inspection Palpation (GI): Soft to palpation and nontender Auscultation: normal bowel sounds Back/Spine/Pelvis: Thoracic/Lumbar Spine: thoracic and lumbar spine normal to inspection Skin: General skin exam: no rashes or lesions noted Neuro: General: patient oriented x3, Normal light touch and pain sensation and confusion Cranial nerves: Yes Equal, round and reactive pupils present, Yes Bilaterally intact EOM present, Yes Nystagmus not present, Yes Normal facial strength present and Yes Midline tongue present Cognition (Neuro): normal cognition Speech: No Abnormal speech present Gait exam (Neuro): Normal gait present Motor exam (neuro): 5/5 motor strength present throughout Sensory Exam: Normal double simultaneous stimulation for sensation Extrem: Other: bilateral lower extremity swelling, nonpitting extending to knees. no tenderness General: Yes normal to inspection Course Course Course Narrative: 54-year-old female here with confusion, generalized weakness and shortness of breath since yesterday. On exam the patient is oriented x3 but tells me she feels like her brain is foggy. She does have some mild shortness of breath with some expiratory wheezing. Stable vital signs. She does have some lower extremity swelling which she tells me is worsened from baseline. Will check labs, EKG, chest x-ray. Give DuoNeb, Iv steroids and reassess. 1714- X-rays consistent with ground-glass opacities. BNP elevated no evidence of congestion on the x-ray but the patient does have bilateral lower extremity swelling with shortness of breath. Can consider CHF. She is taking torsemide and aldactoneat home and has been compliant with this. At this time infection suspected. Antibiotics ordered. Will plan for dose of IV Lasix and ambulation trial. 1939- patient received antibiotics and IV Lasix. She was ambulated with stable saturations but was very tachypneic and short of breath. She also feels confused and feels like going home would be unsafe for her. Discussed patient with Dr. Ramirez who accepted admission. MDM - Altered Mental Status Medical Records Attestation: I reviewed the patient's medical records. Lab Data Attestation: I reviewed the patient's lab results. Result diagrams: 02/09/20 13:48 02/09/20 13:48 Labs: Lab Results 11/24/20 11/24/20 11/24/20 Range/Units 13:48 13:48 13:48 WBC 4.4 L (4.8-10.8) X10*3/uL RBC 2.33 L (4.20-5.50) X10*6/uL Hgb 7.5 L (12.0-16.0) g/dl Hct 22.9 L (37-47) % MCV 98.3 H (80-98) fL MCH 32.2 (27.0-33.0) pg MCHC 32.8 (31.0-35.0) g/dl RDW 17.5 H (11.0-16.0) % Plt Count 94 L D (160-400) X10*3/uL MPV 10.0 (9.4-12.3) fL Immature Gran % (Auto) 0.5 H (0.0-0.4) % Neut % (Auto) 58.2 (45-73) % Lymph % (Auto) 22.9 (20-40) % [place] % (Auto) 14.0 H (2-11) % Eos % (Auto) 3.7 (0-4) % Baso % (Auto) 0.7 (0-2) % Lymph # (Auto) 1.0 L (1.2-4.9) X10*3/uL [place] # (Auto) 0.6 (0.1-1.2) X10*3/uL Eos # (Auto) 0.2 (0.0-0.4) X10*3/uL Baso # (Auto) 0.0 (0.0-0.2) X10*3/uL Abs Immat Gran (auto) 0.02 (0.00-0.03) X10*3/uL Absolute Neuts (auto) 2.6 (2.0-8.3) X10*3/uL Absolute Nucleated RBC 0.000 (0.0-0.012) X10*3/uL Nucleated RBC % (auto) 0.0 (0.0-0.2) /100WBC Hold Blue Top SEE NOTE Sodium 131 L (135-145) mmol/L Potassium 3.8 (3.3-5.1) mmol/l Chloride 99 (96-108) mmol/L Carbon Dioxide 27 (22-29) mmol/L Anion Gap 9 L (12-20) BUN 6 L (9-16) mg/dL Creatinine 0.64 (0.5-1.4) mg/dL Estim Creat Clear Calc 104.7 Estimated GFR > 60 Random Glucose 121 H (60-115) mg/dL Lactic Acid (0.5-2.0) mmol/L Calcium 7.7 L (8.4-10.2) mg/dL Magnesium 1.7 (1.6-2.6) mg/dL Total Bilirubin 3.0 H (0.0-1.0) mg/dL Direct Bilirubin 2.1 H (0.0-0.5) mg/dL AST 39 H D (5-31) U/L ALT 20 (0-31) U/L Alkaline Phosphatase 135 H D (39-117) U/L Ammonia (13-55) umol/L Troponin I High Sens (<3.5-17.0) ng/L B-Natriuretic Peptide (<100) pg/mL Total Protein 5.2 L (6.5-8.0) g/dL Albumin 2.3 L (3.5-5.0) g/dL COVID-19 ([facility]) (Negative) COVID-19 Clin Com 02/09/20 02/09/20 02/09/20 Range/Units 13:48 15:58 16:05 WBC (4.8-10.8) X10*3/uL RBC (4.20-5.50) X10*6/uL Hgb (12.0-16.0) g/dl Hct (37-47) % MCV (80-98) fL MCH (27.0-33.0) pg MCHC (31.0-35.0) g/dl RDW (11.0-16.0) % Plt Count (160-400) X10*3/uL MPV (9.4-12.3) fL Immature Gran % (Auto) (0.0-0.4) % Neut % (Auto) (45-73) % Lymph % (Auto) (20-40) % [place] % (Auto) (2-11) % Eos % (Auto) (0-4) % Baso % (Auto) (0-2) % Lymph # (Auto) (1.2-4.9) X10*3/uL [place] # (Auto) (0.1-1.2) X10*3/uL Eos # (Auto) (0.0-0.4) X10*3/uL Baso # (Auto) (0.0-0.2) X10*3/uL Abs Immat Gran (auto) (0.00-0.03) X10*3/uL Absolute Neuts (auto) (2.0-8.3) X10*3/uL Absolute Nucleated RBC (0.0-0.012) X10*3/uL Nucleated RBC % (auto) (0.0-0.2) /100WBC Hold Blue Top Sodium (135-145) mmol/L Potassium (3.3-5.1) mmol/l Chloride (96-108) mmol/L Carbon Dioxide (22-29) mmol/L Anion Gap (12-20) BUN (9-16) mg/dL Creatinine (0.5-1.4) mg/dL Estim Creat Clear Calc Estimated GFR Random Glucose (60-115) mg/dL Lactic Acid (0.5-2.0) mmol/L Calcium (8.4-10.2) mg/dL Magnesium (1.6-2.6) mg/dL Total Bilirubin (0.0-1.0) mg/dL Direct Bilirubin (0.0-0.5) mg/dL AST (5-31) U/L ALT (0-31) U/L Alkaline Phosphatase (39-117) U/L Ammonia 93 H (13-55) umol/L Troponin I High Sens 4.0 D (<3.5-17.0) ng/L B-Natriuretic Peptide (<100) pg/mL Total Protein (6.5-8.0) g/dL Albumin (3.5-5.0) g/dL COVID-19 ([facility]) Negative (Negative) COVID-19 Clin Com See Note 02/09/20 02/09/20 Range/Units 16:05 16:05 WBC (4.8-10.8) X10*3/uL RBC (4.20-5.50) X10*6/uL Hgb (12.0-16.0) g/dl Hct (37-47) % MCV (80-98) fL MCH (27.0-33.0) pg MCHC (31.0-35.0) g/dl RDW (11.0-16.0) % Plt Count (160-400) X10*3/uL MPV (9.4-12.3) fL Immature Gran % (Auto) (0.0-0.4) % Neut % (Auto) (45-73) % Lymph % (Auto) (20-40) % [place] % (Auto) (2-11) % Eos % (Auto) (0-4) % Baso % (Auto) (0-2) % Lymph # (Auto) (1.2-4.9) X10*3/uL [place] # (Auto) (0.1-1.2) X10*3/uL Eos # (Auto) (0.0-0.4) X10*3/uL Baso # (Auto) (0.0-0.2) X10*3/uL Abs Immat Gran (auto) (0.00-0.03) X10*3/uL Absolute Neuts (auto) (2.0-8.3) X10*3/uL Absolute Nucleated RBC (0.0-0.012) X10*3/uL Nucleated RBC % (auto) (0.0-0.2) /100WBC Hold Blue Top Sodium (135-145) mmol/L Potassium (3.3-5.1) mmol/l Chloride (96-108) mmol/L Carbon Dioxide (22-29) mmol/L Anion Gap (12-20) BUN (9-16) mg/dL Creatinine (0.5-1.4) mg/dL Estim Creat Clear Calc Estimated GFR Random Glucose (60-115) mg/dL Lactic Acid 1.3 (0.5-2.0) mmol/L Calcium (8.4-10.2) mg/dL Magnesium (1.6-2.6) mg/dL Total Bilirubin (0.0-1.0) mg/dL Direct Bilirubin (0.0-0.5) mg/dL AST (5-31) U/L ALT (0-31) U/L Alkaline Phosphatase (39-117) U/L Ammonia (13-55) umol/L Troponin I High Sens (<3.5-17.0) ng/L B-Natriuretic Peptide 278 H (<100) pg/mL Total Protein (6.5-8.0) g/dL Albumin (3.5-5.0) g/dL COVID-19 ([facility]) (Negative) COVID-19 Clin Com Imaging Data Chest x-ray: Radiologist's impression: EXAMINATION: XR CHEST CLINICAL INFORMATION: Shortness of breath COMPARISON: Chest radiographs 01/20/2020, 10/09/2019, CT chest 01/20/2020 TECHNIQUE: 2 views of the chest were obtained. FINDINGS: There is coarsening of the central bronchovascular markings with question of groundglass opacity anteriorly on lateral view. There is no lobar or segmental airspace consolidation and no effusion. The heart is normal in size. The vascularity is normal. The hilar and mediastinal contours and bony structures are unremarkable. XR/XR chest 2V IMPRESSION: Diffuse coarsening central bronchovascular markings with question of small groundglass opacity anterior upper lobes. No effusion. ECG Data ECG #1: Attestation: I personally reviewed and interpreted this ECG as follows: ECG interpretation date: 02/09/20 ECG interpretation time: 15:50 Interpretation: normal sinus rhythm with a rate of 83, normal [place], normal QRS, prolonged QT 505 Discharge Plan Discharge Clinical Impression: Hepatic encephalopathy, Pneumonia, COPD (chronic obstructive pulmonary disease), Shortness of breath, Chronic hyponatremia, Liver disease, Anemia Patient Disposition: Admitted As Inpatient
[2020-02-09 16:22] LABS: COVID-19 Test Negative (Negative)
[2020-02-09 16:39] LABS: Lactic Acid 1.3 mmol/L (0.5-2.0)
[2020-02-09] MEDS: Albuterol/Iprat 2.5/0.5MG 3 ML AMPUL.NEB INHALE (16:44)
[2020-02-09 16:49] LABS: B Type Natriuretic Peptide 278 pg/mL (<100)
[2020-02-09] MEDS: Lactulose 20 GM/30 ML SOLUTION 15 GM PO (16:59)
[2020-02-09] MEDS: cefTRIAXone sodium 1 GM in 0.9 % Sodium Chloride 50 ML IV (18:24)
[2020-02-09] MEDS: Furosemide 20 MG/2 ML VIAL IVPUSH (18:24)
[2020-02-09] MEDS: methylPREDNISolone Sod Succ/PF 125 MG/2 ML VIAL IVPUSH (18:25)
[2020-02-09] MEDS: Cyclobenzaprine HCl 10 MG TABLET PO (21:11)
[2020-02-09] MEDS: Lidocaine 4 % Patch ADH..PATCH 1 PATCH TRANSDERMA (21:11)
[2020-02-10] VITALS (7 sets, daily range): BP systolic 116–142; BP diastolic 55–71; PULSE 80–89; RESP 18–20; TEMP 36.4–36.9; O2SAT 95–100; BMI 34.8
[2020-02-10] MEDS: Omeprazole 20 MG CAPSULE.DR PO ×3 (00:21→21:05)
[2020-02-10] MEDS: Magnesium Oxide 400 MG TABLET PO ×3 (00:21→21:05)
[2020-02-10] MEDS: Furosemide 40 MG/4 ML VIAL IVPUSH ×3 (00:21→17:01)
[2020-02-10] MEDS: rifAXIMin 550 MG TABLET PO ×3 (00:21→21:05)
[2020-02-10] MEDS: Potassium Chloride ER 20 MEQ TAB.ER.PRT PO ×3 (00:22→21:05)
[2020-02-10] MEDS: Gabapentin 300 MG CAPSULE PO ×4 (00:22→21:06)
[2020-02-10] MEDS: risperiDONE 1 MG TABLET PO ×3 (00:23→21:05)
[2020-02-10] MEDS: Enoxaparin Sodium 40 MG/0.4 ML SYRINGE SUBCUT ×2 (00:23→23:46)
[2020-02-10] MEDS: Lactulose 20 GM/30 ML SOLUTION 15 GM PO ×3 (00:24→12:45)
[2020-02-10] MEDS: 0.9 % Sodium Chloride Flush 3 ML SYRINGE IVFLUSH ×4 (00:25→23:46)
[2020-02-10] MEDS: Melatonin 3 MG TABLET PO ×2 (00:32→21:05)
[2020-02-10] MEDS: oxyCODONE HCl Immed Release 5 MG TABLET PO ×3 (00:33→21:06)
[2020-02-10] MEDS: ondansetron HCL 4 MG/2 ML VIAL IVPUSH (01:04)
[2020-02-10] MEDS: Albuterol Sulfate 90 MCG 8 GM INHALER 2 PUFF INHALE ×2 (01:58→21:04)
[2020-02-10 04:44] LABS: Hemoglobin 7.6 g/dl (12.0-16.0); Imm Gran Abs Auto 0.05 X10*3/uL (0.00-0.03); Imm Gran Pct Auto 1.6 % (0.0-0.4); Lymphocytes Absolute Auto 0.4 X10*3/uL (1.2-4.9); Lymphocytes Percent Auto 13.4 % (20-40); MANUAL DIFF FLAG SCAN; Mean Corpuscular Hemoglobin 31.8 pg (27.0-33.0); Mean Corpuscular Volume 96.2 fL (80-98); Mean Platelet Volume 10.5 fL (9.4-12.3); Monocytes Absolute Auto 0.1 X10*3/uL (0.1-1.2); Monocytes Percent Auto 1.9 % (2-11); Neutrophils Absolute Auto 2.7 X10*3/uL (2.0-8.3); Neutrophils Percent Auto 83.1 % (45-73); Red Blood Count 2.39 X10*6/uL (4.20-5.50); Red Cell Distribution Width 17.2 % (11.0-16.0); SCAN SMEAR FLAG 1; White Blood Count 3.2 X10*3/uL (4.8-10.8)
[2020-02-10 04:51] LABS: Platelet Count 77 X10*3/uL (160-400)
[2020-02-10 05:09] LABS: SLIDE REVIEW VERIFIED
[2020-02-10 05:12] LABS: Anion Gap 13 (12-20); Blood Urea Nitrogen 7 mg/dL (9-16); Calcium 7.7 mg/dL (8.4-10.2); Carbon Dioxide 25 mmol/L (22-29); Chloride 98 mmol/L (96-108); Creatinine Clr Calc Pharmacy 90.5; Estimated Glomerular Filt Rate > 60; Glucose Random 241 mg/dL (60-115); Potassium 3.5 mmol/l (3.3-5.1); Sodium 132 mmol/L (135-145)
--- NOTE | 2020-02-10 06:13 | P.HPHOSP_ITS ---
History of Present Illness Date of Service: 02/09/20 Chief Complaint: confusion, shortness of breath this is a 54-year-old female with past medical history of alcoholic liver cirrhosis, hyponatremia, ascites, COPD, chronic back pain who presents to the hospital with complaints of confusion as well as difficulty breathing. Patient reports that she usually gets this way when she has hepatic encephalopathy and e levated ammonia. Patient was recently discharged from the hospital on the 12th of this month after being managed for hepatic encephalopathy . Patient reports that she has not been completely compliant with her lactulose and been taking it 1-2 times mostly. She did not take her lactulose Properly today although she did taking yesterday and had 5 BMs. Patient reports that she is confused about will people are telling her, she is asking people to repeat themselves because she cannot focus. She is also complaining of shortness of breath mostly on exertion, orthopnea, PND and lower extremity edema. She reports abdominal distension. She otherwise denies any Chest pain, no palpitations, no cough or sputum production. No fever or chills. nausea, vomiting, abdominal pain, no constipat ion. She reports that she has been eating a lot of salty food. She reports compliance with her torsemide and spironolactone. On arrival to the ED hemodynamically stable with no significant abnormal vitals on arrival labs are significant for WBC count of 3.2, hemoglobin of 7.6 which is around her usual baseline, sodium of 132 regional also around her baseline, total bili of 3 (lower than usual ), ammonia of 93 which is increased since discharge, BNP of 278, albumin of 2.3. COVID-19 negative, chest x-ray demonstrating coarsening central bronchovascular markings with question of smoke ground-glass opacity anterior upper lobes Past medical history: Alcoholic Liver cirrhosis, hyponatremia, ascites, COPD, chronic back pain Past surgical history: Cholecystectomy, then esophageal varices, back surgery Family history: Hypertension Social history: Comes from home, smokes cigarettes, She reports that she has not drank alcohol in months Review of Systems Constitutional: Constitutional: Denies headache(s) and Reports weakness ENT: Denies headache(s) Neurologic: Reports system reviewed and no additional complaints, except as documented, Reports confusion, Denies headache(s) and Reports weakness Psychiatric: Psychiatric: Reports confusion [facility] Medical History Anemia Anxiety Chronic back pain Cirrhosis Coagulopathy COPD (chronic obstructive pulmonary disease) Depression Diabetes 1.5, managed as type 2 Hyponatremia PTSD (post-traumatic stress disorder) Thrombocytopenia Surgical History History of cholecystectomy Previous back surgery S/P TIPS (transjugular intrahepatic portosystemic shunt) Social History Household Members: Significant Other Housing: Apartment Do you presently have visiting nurse or other home services: Yes (mehnaz) Alcohol intake: never Smoking Status: Current every day smoker Tobacco Type: Cigarette Packs Per Day: 0.5 Cigarettes Per Day: 10.0 Patient Interested in Nicotine Replacement: No Use of substances other than those prescribed or required for medical reasons: No Substance Use Type: Marijuana Substance Use Frequency: Weekly Last Used Substance: Unknown Currently Displaying Signs/Symptoms of Drug Intoxication Withdrawal: No Any prior treatment program specific to substance use: Yes Have you been hit, kicked, punched, or otherwise hurt by someone within the past year? If so, by whom?: No Do you feel safe in your current relationship?: Yes Is there a partner from a previous relationship who is making you feel unsafe now?: No Are you made to feel afraid or neglected: No Advance Directives: No Advance Directives Information Provided: Yes Do you have thoughts of harming others: None Do you have a plan to hurt others: No Plan Recently lost weight without trying: No service: No Current occupational status: employed Meds Allergies Allergy/AdvReac Type Severity Reaction Status Date / Time lamotrigine [From LAMICTAL] Allergy Intermediate RASH Verified 01/20/20 00:45 amoxicillin [AMOXICILLIN] Allergy Unknown NAUSEA & Verified 01/20/20 00:45 VOMITING Iodinated Contrast Media Allergy Unknown ANAPHYLAXIS Verified 01/20/20 00:45 [CONTRAST, IV] Sulfa (Sulfonamide Allergy Unknown UNKNOWN Verified 01/20/20 00:45 Antibiotics) [SULFA (SULFONAMIDE ANTIBIOTICS)] sulfamethoxazole Allergy Unknown UNK Verified 01/20/20 00:45 [From BACTRIM] trimethoprim [From BACTRIM] Allergy Unknown UNK Verified 01/20/20 00:45 Home Medications Medication Instructions Recorded Confirmed Type Xifaxan 550 mg PO BID 01/20/20 02/09/20 History folic acid 1 mg PO DAILY 01/20/20 02/09/20 History hydroxyzine pamoate 25 mg PO TID PRN 01/20/20 02/09/20 History lactulose 15 g PO TID 01/20/20 02/09/20 History lorazepam 0.5 mg PO TID PRN 01/20/20 02/09/20 History magnesium oxide 400 mg PO BID 01/20/20 02/09/20 History melatonin 3 mg PO BEDTIME PRN 01/20/20 02/09/20 History omeprazole 20 mg PO BID 01/20/20 02/09/20 History potassium chloride 20 meq PO BID 01/20/20 02/09/20 History risperidone 1 mg PO BID 01/20/20 02/09/20 History albuterol sulfate 2 puff INHALATION Q4H PRN 02/09/20 02/09/20 History calcium carbonate [Antacid Ext Str 1 tab PO TID 02/09/20 02/09/20 History (calcium carb)] cetirizine 1 tab PO DAILY 02/09/20 02/09/20 History fluticasone propionate [Flovent 1 puff INHALATION BID 02/09/20 02/09/20 History HFA] thiamine HCl (vitamin B1) 1 tab PO DAILY 02/09/20 02/09/20 History Physical Exam Vital Signs and Narrative: Vital Signs: Last Vital Signs Temp 98.5 F 02/10/20 04:00 Pulse 86 02/10/20 04:00 Resp 18 02/10/20 04:00 BP 142/71 H 02/10/20 04:00 Pulse Ox 100 02/09/20 23:30 Body Mass Index 34.7 Const: General: confusion and ill appearing Orientation/consciousness: confusion Eyes: General: appearance normal, both eyes and all related structures Pupils: Equal, round and reactive pupils present Resp: Effort & Inspection: normal respiratory effort and able to speak in complete sentences Auscultation: clear to auscultation bilaterally Cardio: Rate: regular rate Rhythm: regular rhythm GI: Palpation (GI): Soft to palpation Auscultation: normal bowel sounds Skin: General skin exam: no rashes or lesions noted Neuro: Other: Astrexis present General: confusion Cranial nerves: Yes Equal, round and reactive pupils present Cognition (Neuro): normal cognition Extrem: Other: 2+ edema bilaterally General: Yes normal to inspection Results Labs CBC and Chem 7: 02/10/20 04:18 02/10/20 04:18 Labs: Laboratory Results - last 24 hr 02/09/20 02/09/20 02/09/20 13:48 13:48 13:48 MCV 98.3 H MCH 32.2 MCHC 32.8 RDW 17.5 H Plt Count 94 L D MPV 10.0 Immature Gran % (Auto) 0.5 H Neut % (Auto) 58.2 Lymph % (Auto) 22.9 [place] % (Auto) 14.0 H Eos % (Auto) 3.7 Baso % (Auto) 0.7 Lymph # (Auto) 1.0 L [place] # (Auto) 0.6 Eos # (Auto) 0.2 Baso # (Auto) 0.0 Abs Immat Gran (auto) 0.02 Absolute Neuts (auto) 2.6 Absolute Nucleated RBC 0.000 Nucleated RBC % (auto) 0.0 Smear Tech's Comments Hold Blue Top SEE NOTE Anion Gap 9 L Estim Creat Clear Calc 104.7 Estimated GFR > 60 Random Glucose 121 H Lactic Acid Calcium 7.7 L Magnesium 1.7 Total Bilirubin 3.0 H Direct Bilirubin 2.1 H AST 39 H D ALT 20 Alkaline Phosphatase 135 H D Ammonia Troponin I High Sens B-Natriuretic Peptide Total Protein 5.2 L Albumin 2.3 L COVID-19 (GIOVANI) COVID-[employer] Clin Com 02/09/20 02/09/20 02/09/20 13:48 15:58 16:05 MCV MCH MCHC RDW Plt Count MPV Immature Gran % (Auto) Neut % (Auto) Lymph % (Auto) [place] % (Auto) Eos % (Auto) Baso % (Auto) Lymph # (Auto) [place] # (Auto) Eos # (Auto) Baso # (Auto) Abs Immat Gran (auto) Absolute Neuts (auto) Absolute Nucleated RBC Nucleated RBC % (auto) Smear Tech's Comments Hold Blue Top Anion Gap Estim Creat Clear Calc Estimated GFR Random Glucose Lactic Acid Calcium Magnesium Total Bilirubin Direct Bilirubin AST ALT Alkaline Phosphatase Ammonia 93 H Troponin I High Sens 4.0 D B-Natriuretic Peptide Total Protein Albumin COVID-19 (GIOVANI) Negative COVID-19 Clin Com See Note 02/09/20 02/09/20 02/10/20 16:05 16:05 04:18 MCV 96.2 MCH 31.8 MCHC 33.0 RDW 17.2 H Plt Count 77 L MPV 10.5 Immature Gran % (Auto) 1.6 H Neut % (Auto) 83.1 H Lymph % (Auto) 13.4 L [place] % (Auto) 1.9 L Eos % (Auto) 0.0 Baso % (Auto) 0.0 Lymph # (Auto) 0.4 L [place] # (Auto) 0.1 Eos # (Auto) 0.0 Baso # (Auto) 0.0 Abs Immat Gran (auto) 0.05 H Absolute Neuts (auto) 2.7 Absolute Nucleated RBC 0.000 Nucleated RBC % (auto) 0.0 Smear Tech's Comments VERIFIED Hold Blue Top Anion Gap Estim Creat Clear Calc Estimated GFR Random Glucose Lactic Acid 1.3 Calcium Magnesium Total Bilirubin Direct Bilirubin AST ALT Alkaline Phosphatase Ammonia Troponin I High Sens B-Natriuretic Peptide 278 H Total Protein Albumin COVID-19 (GIOVANI) COVID-[employer] 02/10/20 04:18 MCV MCH MCHC RDW Plt Count MPV Immature Gran % (Auto) Neut % (Auto) Lymph % (Auto) [place] % (Auto) Eos % (Auto) Baso % (Auto) Lymph # (Auto) [place] # (Auto) Eos # (Auto) Baso # (Auto) Abs Immat Gran (auto) Absolute Neuts (auto) Absolute Nucleated RBC Nucleated RBC % (auto) Smear Tech's Comments Hold Blue Top Anion Gap 13 Estim Creat Clear Calc 90.5 Estimated GFR > 60 Random Glucose 241 H D Lactic Acid Calcium 7.7 L Magnesium Total Bilirubin Direct Bilirubin AST ALT Alkaline Phosphatase Ammonia Troponin I High Sens B-Natriuretic Peptide Total Protein Albumin COVID-19 (GIOVANI) [employer] Radiologist's Impressions: Impressions Chest X-Ray 02/09/20 15:43 IMPRESSION: Diffuse coarsening central bronchovascular markings with question of small groundglass opacity anterior upper lobes. No effusion. Assessment and Plan (1) Shortness of breath: Status: Acute (2) Hepatic encephalopathy: Status: Acute (3) Pneumonia: Status: Acute (4) COPD (chronic obstructive pulmonary disease): Status: Acute (5) Chronic hyponatremia: Status: Acute (6) Diabetes 1.5, managed as type 2: Status: Acute (7) Depression: Status: Inactive (8) Thrombocytopenia: Status: Inactive (9) Anemia: Status: Acute (10) Cirrhosis: Problem details: related to alcohol Status: Inactive this is a 54-year-old female who presents frequently to the hospital with similar findings including encephalopathy as well as dyspnea. # hepatic encephalopathy - noncompliance with lactulose - elevated ammonia since discharge with associated asterixis - received 1 dose of lactulose in the ED plan: - lactulose q.i.d. with target of 3-4 BMs daily - follow mental status # dyspnea - COPD versus CHF exacerbation versus pneumonia - patient complaining of orthopnea, PND, lower extremity edema - has elevated BNP - Has no increased sputum production and increased cough to suggest COPD exacerbation - patient on baseline torsemide 20 mg and reports compliance - COVID-19 negative plan: - at this time will start her on furosemide 40 IV b.i.d., consult Cardiology, obtain a echocardiogram, start her on low-sodium diet, strict I&O, daily weight - albuterol p.r.n. # possible pneumonia - denies any increased cough, afebrile, does have leukopenia - chest x-ray suggestive of infiltrate - COVID negative Plan: - Start her on ceftriaxone and azithrom - will follow cultures # alcoholic liver cirrhosis - associated anemia, thrombocytopenia, coagulopathy - continue Aldactone, rifaximin, torsemide switched to furosemide # anemia - chronic - currently H&H of 7.6 and 23 - follow CBC # thrombocytopenia related to liver disease - follow CBC diabetes - SSI, POC chronic back pain - continue gabapentin mood - hold Atarax, Ativan to avoid excessive sedation DVT prophylaxis: Lovenox
[2020-02-10 07:57] LABS: Glucose, Whole Blood 175 mg/dL (60-115)
--- NOTE | 2020-02-10 09:28 | MHC.CM.PN ---
IMM 02/10/2020 Female 54 dx HF exacerbation Encephalopathy . She lives with B.F. She uses a wheeled walker prn distances. She receives assist from B.F. prn. HCP on file. DP home with [facility], Pt will arrange for transport home.
[2020-02-10] MEDS: Insulin Lispro 100 UNIT/ML 3 ML VIAL SUBCUT ×2 (09:32→12:45)
[2020-02-10] MEDS: Thiamine HCL 100 MG TABLET PO (09:32)
[2020-02-10] MEDS: Spironolactone 25 MG TABLET PO (09:33)
[2020-02-10] MEDS: Azithromycin 500 MG TABLET PO (09:33)
[2020-02-10] MEDS: Calcium Carbonate 750 MG TAB.CHEW PO ×2 (09:33→21:05)
[2020-02-10] MEDS: Folic Acid 1 MG TABLET PO (09:33)
[2020-02-10 11:09] LABS: Glucose, Whole Blood 220 mg/dL (60-115)
--- NOTE | 2020-02-10 11:24 | PM.DS ---
DS: Providers Provider Date of admission: 02/09/20 21:28 <Misael Portillo MD - Last Filed: 02/10/20 11:37> Primary care physician: Unknown Physician <Misael Portillo MD - Last Filed: 02/10/20 11:37> Consults: 02/09/20 23:04 Consult to Cardiology Routine Consulting Provider: Low Rosario Reason for consultation: CHF Has provider been notified: No <Misael Portillo MD - Last Filed: 02/10/20 11:37> DS: Diagnosis Discharge Diagnosis (1) Shortness of breath: Status: Resolved <Misael Portillo MD - Last Filed: 02/10/20 11:37> (2) Hepatic encephalopathy: Status: Resolved <Misael Portillo MD - Last Filed: 02/10/20 11:37> (3) Pneumonia: (4) COPD (chronic obstructive pulmonary disease): Status: Acute <Misael Portillo MD - Last Filed: 02/10/20 11:37> (5) Chronic hyponatremia: (6) Diabetes 1.5, managed as type 2: (7) Depression: Status: Inactive <Misael Portillo MD - Last Filed: 02/10/20 11:37> (8) Thrombocytopenia: Status: Inactive <Misael Portillo MD - Last Filed: 02/10/20 11:37> (9) Anemia: (10) Cirrhosis: Status: Inactive <Misael Portillo MD - Last Filed: 02/10/20 11:37> Problem details: related to alcohol <Misael Portillo MD - Last Filed: 02/10/20 11:37> DS: Medications Discharge Medications Home Medications: Home Medications Medication Instructions Recorded Confirmed Xifaxan 550 mg PO BID 01/20/20 02/09/20 folic acid 1 mg PO DAILY 01/20/20 02/09/20 hydroxyzine pamoate 25 mg PO TID PRN 01/20/20 02/09/20 lactulose 15 g PO TID 01/20/20 02/09/20 lorazepam 0.5 mg PO TID PRN 01/20/20 02/09/20 magnesium oxide 400 mg PO BID 01/20/20 02/09/20 melatonin 3 mg PO BEDTIME PRN 01/20/20 02/09/20 omeprazole 20 mg PO BID 01/20/20 02/09/20 potassium chloride 20 meq PO BID 01/20/20 02/09/20 risperidone 1 mg PO BID 01/20/20 02/09/20 albuterol sulfate 2 puff INHALATION Q4H PRN 02/09/20 02/09/20 calcium carbonate [Antacid Ext Str 1 tab PO TID 02/09/20 02/09/20 (calcium carb)] cetirizine 1 tab PO DAILY 02/09/20 02/09/20 fluticasone propionate [Flovent 1 puff INHALATION BID 02/09/20 02/09/20 HFA] thiamine HCl (vitamin B1) 1 tab PO DAILY 02/09/20 02/09/20 Previous Rx's Medication Instructions Recorded gabapentin 300 mg PO TID #90 cap 01/26/20 spironolactone 25 mg PO DAILY #30 tab 01/28/20 torsemide 10 mg PO DAILY 30 Days #15 tab 01/28/20 <Misael Portillo MD - Last Filed: 02/10/20 11:37> DS: Summary Hospital Course Hospital Course: HPI: 54-year-old female with past medical history of alcoholic liver cirrhosis, hyponatremia, ascites, COPD, chronic back pain who presents to the hospital with complaints of confusion as well as difficulty breathing. Patient reports that she usually gets this way when she has hepatic encephalopathy and elevated ammonia. Patient was recently discharged from the hospital on the 12th of this month after being managed for hepatic encephalopathy . Patient reports that she has not been completely compliant with her lactulose and been taking it 1-2 times mostly. She did not take her lactulose Properly today although she did taking yesterday and had 5 BMs. Patient reports that she is confused about will people are telling her, she is asking people to repeat themselves because she cannot focus. She is also complaining of shortness of breath mostly on exertion, orthopnea, PND and lower extremity edema. Hospital course: 1. Hepatic Encephalopathy--mental status normalized, she is reminded to be regular with lactulose. Initial ammonia level was 93 and after lactulose it is 59. 2. ? Pneumonia..She did have some sob on history, she doesn't have any recurrent bout of SOB , no fever, covid is negative, she has no hypoxia, leukopenia is due chronic liver disease. She was started empirically on Abx based on CXR finding, clinically there is no pneumonia and since blood cultures are negative antibiotic has been discontinued. 3. ? CHF--her BNP is slightly high ,she had orthopnea, some increase volume likely combination of CHF and cirrhosis also, she received Lasix and have been recommended to continue torsemide and aldactone patient was evaluated by wire lather and echocardiogram was recommended but patient declined since she recently had an echo at [facility], recommended close outpatient follow-up with primary care physician and Cardiology for CHF management and follow-up on echo cardiogram. <Misael Portillo MD - Last Filed: 02/10/20 11:37> Time Spent with Patient Time attestation: Total time spent providing and/or coordinating discharge services: <Misael Portillo MD - Last Filed: 02/10/20 11:37> Physical Exam Vital Signs: Vital Signs: Last Vital Signs Temp 98.3 F 02/10/20 11:09 Pulse 83 02/10/20 11:09 Resp 20 02/10/20 11:09 BP 142/67 H 02/10/20 11:09 Pulse Ox 95 02/10/20 11:09 Body Mass Index 34.8 General: AO X 3, no acute distress Resp: CTA bilateral CVS: S1,S2,RRR GI: +BS, NT, no distention Skin: No rash Neuro: motor grossly intact Psych: appropriate affect <Misael Portillo MD - Last Filed: 02/10/20 11:37> DS: Data Data Completed and Pending Completed studies during hospitalization [Text1]: Procedures Transfusion of Nonautologous Red Blood Cells into Peripheral Vein, Percutaneous Approach (01/20/20) <Misael Portillo MD - Last Filed: 02/10/20 11:37> Labs on day of discharge: 02/09/20 13:48 Ammonia Stat Basic Metabolic Panel Stat Complete Blood Count Auto Diff Stat Hold Lt Blue - Possible Coag Stat Liver Panel Stat Magnesium Stat 02/09/20 15:43 ECG 12 lead EKG Stat EKG Documentation DIRECTED XR chest 2V Stat Albuterol/Iprat 2.5/0.5MG 3 ML [Duoneb] 3 ml INHALE ONCE ONE methylPREDNISolone Sod Succ/PF [SOLU-MedroL] 125 mg IVPUSH ONCE ONE 02/09/20 15:44 Lactulose [Chronulac] 15 gm PO ONCE ONE 02/09/20 15:58 COVID-19 ID NOW ([place]) Stat 02/09/20 16:05 B Type Natriuretic Peptide Stat Lactic Acid Stat Troponin-I High Sensitivity Stat 02/09/20 17:19 Doxycycline Hyclate [Vibramycin] 100 mg PO ONCE ONE Furosemide [Lasix] 20 mg IVPUSH ONCE ONE cefTRIAXone sodium [Rocephin] 1 gm 0.9 % Sodium Chloride [Ns] 50 ml IV ONCE 02/09/20 18:20 cefTRIAXone sodium [Rocephin] 1 gm .ROUTE .STK-MED ONE 02/09/20 20:49 Transfer Order Routine 02/09/20 20:53 Cyclobenzaprine HCl [Flexeril] 10 mg PO ONCE ONE Lidocaine 4 % Patch [Salonpas 4 % Patch] 1 patch TRANSDERMA ONCE ONE 02/10/20 00:14 oxyCODONE HCl Immed Release [Roxicodone] 5 mg PO ONCE ONE 02/10/20 04:18 Basic Metabolic Panel Routine Complete Blood Count Auto Diff Routine SLIDE REVIEW Routine 02/10/20 07:54 Glucose, Whole Blood Routine 02/10/20 11:01 Glucose, Whole Blood Routine Laboratory Last Values WBC 3.2 X10*3/uL (4.8-10.8) L 02/10/20 04:18 RBC 2.39 X10*6/uL (4.20-5.50) L 02/10/20 04:18 Hgb 7.6 g/dl (12.0-16.0) L 02/10/20 04:18 Hct 23.0 % (37-47) L 02/10/20 04:18 MCV 96.2 fL (80-98) 02/10/20 04:18 MCH 31.8 pg (27.0-33.0) 02/10/20 04:18 MCHC 33.0 g/dl (31.0-35.0) 02/10/20 04:18 RDW 17.2 % (11.0-16.0) H 02/10/20 04:18 Plt Count 77 X10*3/uL (160-400) L 02/10/20 04:18 MPV 10.5 fL (9.4-12.3) 02/10/20 04:18 Immature Gran % (Auto) 1.6 % (0.0-0.4) H 02/10/20 04:18 Neut % (Auto) 83.1 % (45-73) H 02/10/20 04:18 Lymph % (Auto) 13.4 % (20-40) L 02/10/20 04:18 [place] % (Auto) 1.9 % (2-11) L 02/10/20 04:18 Eos % (Auto) 0.0 % (0-4) 02/10/20 04:18 Baso % (Auto) 0.0 % (0-2) 02/10/20 04:18 Lymph # (Auto) 0.4 X10*3/uL (1.2-4.9) L 02/10/20 04:18 [place] # (Auto) 0.1 X10*3/uL (0.1-1.2) 02/10/20 04:18 Eos # (Auto) 0.0 X10*3/uL (0.0-0.4) 02/10/20 04:18 Baso # (Auto) 0.0 X10*3/uL (0.0-0.2) 02/10/20 04:18 Abs Immat Gran (auto) 0.05 X10*3/uL (0.00-0.03) H 02/10/20 04:18 Absolute Neuts (auto) 2.7 X10*3/uL (2.0-8.3) 02/10/20 04:18 Absolute Nucleated RBC 0.000 X10*3/uL (0.0-0.012) 02/10/20 04:18 Nucleated RBC % (auto) 0.0 /100WBC (0.0-0.2) 02/10/20 04:18 Smear Tech's Comments VERIFIED 02/10/20 04:18 Hold Blue Top SEE NOTE 02/09/20 13:48 Sodium 132 mmol/L (135-145) L 02/10/20 04:18 Potassium 3.5 mmol/l (3.3-5.1) 02/10/20 04:18 Chloride 98 mmol/L (96-108) 02/10/20 04:18 Carbon Dioxide 25 mmol/L (22-29) 02/10/20 04:18 Anion Gap 13 (12-20) 02/10/20 04:18 BUN 7 mg/dL (9-16) L 02/10/20 04:18 Creatinine 0.74 mg/dL (0.5-1.4) 02/10/20 04:18 Estim Creat Clear Calc 90.5 02/10/20 04:18 Estimated GFR > 60 02/10/20 04:18 POC Glucose 220 mg/dL (60-115) H 02/10/20 11:01 Random Glucose 241 mg/dL (60-115) H D 02/10/20 04:18 Lactic Acid 1.3 mmol/L (0.5-2.0) 02/09/20 16:05 Calcium 7.7 mg/dL (8.4-10.2) L 02/10/20 04:18 Magnesium 1.7 mg/dL (1.6-2.6) 02/09/20 13:48 Total Bilirubin 3.0 mg/dL (0.0-1.0) H 02/09/20 13:48 Direct Bilirubin 2.1 mg/dL (0.0-0.5) H 02/09/20 13:48 AST 39 U/L (5-31) H D 02/09/20 13:48 ALT 20 U/L (0-31) 02/09/20 13:48 Alkaline Phosphatase 135 U/L (39-117) H D 02/09/20 13:48 Ammonia 93 umol/L (13-55) H 02/09/20 13:48 Troponin I High Sens 4.0 ng/L (<3.5-17.0) D 02/09/20 16:05 B-Natriuretic Peptide 278 pg/mL (<100) H 02/09/20 16:05 Total Protein 5.2 g/dL (6.5-8.0) L 02/09/20 13:48 Albumin 2.3 g/dL (3.5-5.0) L 02/09/20 13:48 COVID-19 (GIOVANI) Negative (Negative) 02/09/20 15:58 COVID-19 Clin Com See Note 02/09/20 15:58 <Misael Portillo MD - Last Filed: 02/10/20 11:37> Discharge Plan Discharge Patient Disposition: Home, Self-Care <Misael Portillo MD - Last Filed: 02/10/20 11:37> Referrals: Physician,Unknown [Primary Care Provider] - <Misael Portillo MD - Last Filed: 02/10/20 11:37> Discharge Medications: Continued potassium chloride 20 mEq tablet,ER particles/crystals 40 meq PO DAILY RF: 0 folic acid 1 mg tablet 1 mg PO DAILY RF: 0 Xifaxan 550 mg tablet 550 mg PO BID RF: 0 omeprazole 20 mg Capsule,Delayed Release(Dr/Ec) 20 mg PO BID RF: 0 risperidone 1 mg tablet 2 mg PO BEDTIME RF: 0 thiamine HCl (vitamin B1) 100 mg tablet 100 mg PO DAILY RF: 0 calcium carbonate [Antacid Ext Str (calcium carb)] 300 mg (750 mg) tablet,chewable 1 tab PO TID PRN (Reason: Heartburn) RF: 0 Flovent HFA 220 mcg/actuation HFA aerosol inhaler 2 puff inhalation BID RF: 0 albuterol sulfate 90 mcg/actuation HFA aerosol inhaler 2 puff inhalation Q4H PRN (Reason: Shortness Of Breath) RF: 0 No Action baclofen 10 mg tablet 10 mg PO QPM RF: 0 gabapentin 600 mg tablet 1 tab PO TID RF: 0 cetirizine 10 mg tablet 10 mg PO DAILY RF: 0 pyridoxine (vitamin B6) 50 mg tablet 50 mg PO DAILY RF: 0 metformin 750 mg tablet extended release 24 hr 750 mg PO BEDTIME RF: 0 glycerin (adult) Suppository 1 supp DE DAILY PRN (Reason: Constipation) RF: 0 spironolactone 25 mg Tablet 50 mg PO DAILY Qty: 30 RF: 0 lactulose 20 gram/30 mL Solution 30 g PO TID Qty: 240 RF: 0 torsemide 20 mg tablet 20 mg PO DAILY Qty: 30 RF: 0 amoxicillin-pot clavulanate [Augmentin] 875-125 mg tablet 1 tab PO BID Qty: 4 RF: 0 <Misael Portillo MD - Last Filed: 02/10/20 11:37> Discharge Orders: Discharge Order (Routine); Ordered 02/11/20 Ordered By: Tad Xiong <Misael Portillo MD - Last Filed: 02/10/20 11:37> Diet: advance to usual diet <Misael Portillo MD - Last Filed: 02/10/20 11:37> advance to usual diet <Tad Xiong MD - Last Filed: 02/25/20 17:57> Activity on Discharge: As tolerated <Misael Portillo MD - Last Filed: 02/10/20 11:37> As tolerated <Tad Xiong MD - Last Filed: 02/25/20 17:57> Discharge Date/Time: 02/11/20 11:18 <Misael Portillo MD - Last Filed: 02/10/20 11:37> Visit Report Forms: Patient Portal Discharge page <Misael Portillo MD - Last Filed: 02/10/20 11:37> Care Plan Goals: Prvent rehospitalization <Misael Portillo MD - Last Filed: 02/10/20 11:37> Health Concerns: Chronic liver disease and dangers of alcohol <Misael Portillo MD - Last Filed: 02/10/20 11:37> Plan of Treatment: Take your medications as recommended and follow up with your Doctor in a week <Misael Portillo MD - Last Filed: 02/10/20 11:37>
[2020-02-10 12:06] LABS: Ammonia 106 umol/L (13-55)
--- NOTE | 2020-02-10 13:00 | P.PNIM_ITS ---
Subjective Subjective Date of Service: 02/10/20 Interval History: Seen in f/u for hepatic encephalopathy, ? heart failure and pna. She is lucid yet ammonia level is higher Gen: no fever Resp: no sob, no cough CV: some leg edema GI: No n/v, no abd pain Neuro: No confusion Physical Exam Vital Signs: Vital Signs: Last Vital Signs Temp 98.3 F 02/10/20 11:09 Pulse 83 02/10/20 11:09 Resp 20 02/10/20 11:09 BP 142/67 H 02/10/20 11:09 Pulse Ox 95 02/10/20 11:09 Body Mass Index 34.8 General: AO X 3, no acute distress Resp: CTA bilateral CVS: S1,S2,RRR, 1+ swelling in legs GI: +BS, NT, no distention Skin: No rash Neuro: motor grossly intact Psych: appropriate affect Objective Data Current Medications Generic Name Dose Route Start Last Admin Trade Name Freq PRN Reason Stop Dose Admin Acetaminophen 650 mg 02/09/20 23:04 Acetaminophen 325 Mg Tablet PO Q12H PRN Pain, Mild (Pain Scale 1-3) Albuterol Sulfate 2 puff 02/09/20 23:04 02/10/20 01:58 Albuterol Sulfate 90 Mcg 8 Gm Inhaler INHALE 2 puff Q4H PRN Administration Shortness Of Breath Azithromycin 500 mg 02/10/20 07:00 02/10/20 09:33 Azithromycin 500 Mg Tablet PO 500 mg Q24H LILLI Administration Calcium Carbonate 750 mg 02/09/20 23:04 02/10/20 09:33 Calcium Carbonate 750 Mg Tab.Chew PO 750 mg TID LILLI Administration Enoxaparin Sodium 40 mg 02/09/20 23:04 02/10/20 00:23 Enoxaparin Sodium 40 Mg/0.4 Ml Syringe SUBCUT 40 mg Q24H LILLI Administration Folic Acid 1 mg 02/10/20 09:00 02/10/20 09:33 Folic Acid 1 Mg Tablet PO 1 mg DAILY LILLI Administration Furosemide 40 mg 02/09/20 23:04 02/10/20 09:30 Furosemide 40 Mg/4 Ml Vial IVPUSH 40 mg BID@0900,1800 LILLI Administration Protocol Gabapentin 300 mg 02/09/20 23:04 02/10/20 09:33 Gabapentin 300 Mg Capsule PO 300 mg TID LILLI Administration Ceftriaxone Sodium 1 gm/ 50 mls @ 100 mls/hr 02/10/20 17:00 Sodium Chloride IV Q24H [facility] Insulin Human Lispro 0 unit 02/10/20 07:30 02/10/20 12:45 Insulin Lispro 100 Unit/Ml 3 Ml Vial SUBCUT 4 unit QIDACHS [facility] Administration Protocol Lactulose 30 gm 02/10/20 13:00 Lactulose 20 Gm/30 Ml Solution PO QID LILLI Magnesium Oxide 400 mg 02/09/20 23:04 02/10/20 09:33 Magnesium Oxide 400 Mg Tablet PO 400 mg BID LILLI Administration Melatonin 3 mg 02/09/20 23:04 02/10/20 00:32 Melatonin 3 Mg Tablet PO 3 mg BEDTIME PRN Administration Sleep Omeprazole 20 mg 02/09/20 23:04 02/10/20 09:32 Omeprazole 20 Mg Capsule.Dr PO 20 mg BID LILLI Administration Ondansetron HCl 4 mg 02/09/20 23:04 02/10/20 01:04 Ondansetron Hcl 4 Mg/2 Ml Vial IVPUSH 4 mg Q8H PRN Administration Nausea and Vomiting Pharmacy Consult 1 each 02/09/20 19:28 Consult Rx Perform Med Rec MISCELLANE ONCE PRN Consult order Potassium Chloride 20 meq 02/09/20 23:04 02/10/20 09:33 Potassium Chloride Er 20 Meq Tab.Er.Prt PO 20 meq BID LILLI Administration Rifaximin 550 mg 02/09/20 23:04 02/10/20 09:32 Rifaximin 550 Mg Tablet PO 550 mg BID LILLI Administration Risperidone 1 mg 02/09/20 23:04 02/10/20 09:33 Risperidone 1 Mg Tablet PO 1 mg BID [facility] Administration Sodium Chloride 3 ml 02/10/20 00:00 02/10/20 09:34 0.9 % Sodium Chloride Flush 3 Ml Syringe IVFLUSH 3 ml QSHIFT [facility] Administration Spironolactone 25 mg 02/10/20 09:00 02/10/20 09:33 Spironolactone 25 Mg Tablet PO 25 mg DAILY LILLI Administration Protocol Thiamine HCl 100 mg 02/10/20 09:00 02/10/20 09:32 Thiamine Hcl 100 Mg Tablet PO 100 mg DAILY LILLI Administration Labs CBC & Chem 7: 02/10/20 04:18 02/10/20 04:18 Assessment and Plan (1) Hepatic encephalopathy: Status: Acute (2) Hyponatremia: Status: Acute (3) Chronic hyponatremia: Status: Acute (4) Anemia: Status: Acute Assessment and Plan: 1. Hepatic Encephalopathy--mental status is within normal, she is reminded to be regular with lactulose. Initial ammonia level was 93 and has gone up to 106. Inc rease lactuloe to 30 qid, now 15 qid. Repeat NH3 tomorrow 2. ? Pneumonia..She did have some sob on history, she doesn't have SOB at moment, no fever, covid is negative, she has no hypoxia, leukopenia is due chronic liver disease. She is started empirically on Abx based on CXR finding, clinically there is no pneumonia. Continue Abx until tomorrow and if cultures are negative dc Abx 3. ? CHF--he BNP is slightly just high and no other stigma of heart failure, some increase volume is due to cirrhosis, she received on IV Lasix now. DC and resume home torsemide and aldactone which she probably wasn't taken. Waiting on cardiology input 4. Anemia of chronic disease--stable, no transfusion at moment 5. Chronic liver cirrhosis from chronic alcohol use, she claims she hasn't drank in 6 months--good for harm, if that is true 6. Chronic hyponatremia--stable 7. Asthma--continue inhalers 8. Neuropathy--gabapentin She wishes to go home for her birthday tomorrow 02[birth year]/
[2020-02-10] MEDS: Lactulose 20 GM/30 ML SOLUTION 30 GM PO ×3 (13:44→21:05)
--- NOTE | 2020-02-10 13:59 | PM.CNCAR ---
History of Present Illness History of Present Illness Date of Service: 02/10/20 Requesting physician: [facility] Consult reason: congestive heart failure Chief complaint: Encephalopathy, Chf exacerbation Narrative: 54-year-old female with background history of cirrhosis of liver secondary to alcoholism, diabetes, COPD with active tobacco abuse, anemia and background of hepatic encephalopathy which presenting with confusion and shortness of breath. she said she was not using her Lactulose regularly and starting becoming more confused and presented with hepatic encephalopathy. she said she also was feeling shortness of breath. She had orthopnea. She denies any chest discomfort. She has been on torsemide and spironolactone and thinks these were prescribed at [facility] for ascites. She does not remember being told that she has heart failure. She was given IV Lasix and her breathing is improved. She has some mild edema on the lower extremities which she reported. Review of Systems Review of Systems: Shortness of breath, confusion -improving Yes all other systems are reviewed and are negative Constitutional: Constitutional: Denies headache(s) and Reports weakness ENT: Denies dizziness and Denies headache(s) Musculoskeletal: Musculoskeletal: Denies numbness and Denies tingling Neurologic: Reports system reviewed and no additional complaints, except as documented, Denies dizziness, Denies headache(s), Denies numbness, Denies tingling and Reports weakness PMFSH Past Medical History Medical History (Updated 02/10/20 @ 15:25 by Low Rosario MD) Anemia Anxiety Chronic back pain Cirrhosis Coagulopathy COPD (chronic obstructive pulmonary disease) Depression Diabetes 1.5, managed as type 2 Hyponatremia PTSD (post-traumatic stress disorder) Thrombocytopenia Surgical History Surgical History History of cholecystectomy Previous back surgery S/P TIPS (transjugular intrahepatic portosystemic shunt) Social History Social History Household Members: Significant Other Housing: Apartment Do you presently have visiting nurse or other home services: Yes (mehnaz) Alcohol intake: never Smoking Status: Current every day smoker Tobacco Type: Cigarette Packs Per Day: 0.5 Cigarettes Per Day: 10.0 Patient Interested in Nicotine Replacement: No Use of substances other than those prescribed or required for medical reasons: No Substance Use Type: Marijuana Substance Use Frequency: Weekly Last Used Substance: Unknown Currently Displaying Signs/Symptoms of Drug Intoxication Withdrawal: No Any prior treatment program specific to substance use: Yes Have you been hit, kicked, punched, or otherwise hurt by someone within the past year? If so, by whom?: No Do you feel safe in your current relationship?: Yes Is there a partner from a previous relationship who is making you feel unsafe now?: No Are you made to feel afraid or neglected: No Advance Directives: No Advance Directives Information Provided: Yes Do you have thoughts of harming others: None Do you have a plan to hurt others: No Plan Recently lost weight without trying: No service: No Current occupational status: employed and disabled Meds Allergies Allergy/AdvReac Type Severity Reaction Status Date / Time lamotrigine [From LAMICTAL] Allergy Intermediate RASH Verified 01/20/20 00:45 amoxicillin [AMOXICILLIN] Allergy Unknown NAUSEA & Verified 01/20/20 00:45 VOMITING Iodinated Contrast Media Allergy Unknown ANAPHYLAXIS Verified 01/20/20 00:45 [CONTRAST, IV] Sulfa (Sulfonamide Allergy Unknown UNKNOWN Verified 01/20/20 00:45 Antibiotics) [SULFA (SULFONAMIDE ANTIBIOTICS)] sulfamethoxazole Allergy Unknown UNK Verified 01/20/20 00:45 [From BACTRIM] trimethoprim [From BACTRIM] Allergy Unknown UNK Verified 01/20/20 00:45 Home Medications Medication Instructions Recorded Confirmed Type Xifaxan 550 mg PO BID 01/20/20 02/09/20 History folic acid 1 mg PO DAILY 01/20/20 02/09/20 History hydroxyzine pamoate 25 mg PO TID PRN 01/20/20 02/09/20 History lactulose 15 g PO TID 01/20/20 02/09/20 History lorazepam 0.5 mg PO TID PRN 01/20/20 02/09/20 History magnesium oxide 400 mg PO BID 01/20/20 02/09/20 History melatonin 3 mg PO BEDTIME PRN 01/20/20 02/09/20 History omeprazole 20 mg PO BID 01/20/20 02/09/20 History potassium chloride 20 meq PO BID 01/20/20 02/09/20 History risperidone 1 mg PO BID 01/20/20 02/09/20 History albuterol sulfate 2 puff INHALATION Q4H PRN 02/09/20 02/09/20 History calcium carbonate [Antacid Ext Str 1 tab PO TID 02/09/20 02/09/20 History (calcium carb)] cetirizine 1 tab PO DAILY 02/09/20 02/09/20 History fluticasone propionate [Flovent 1 puff INHALATION BID 02/09/20 02/09/20 History HFA] thiamine HCl (vitamin B1) 1 tab PO DAILY 02/09/20 02/09/20 History Physical Exam Vital Signs: Vital Signs: Last Vital Signs Temp 98.3 F 02/10/20 11:09 Pulse 83 02/10/20 11:09 Resp 20 02/10/20 11:09 BP 142/67 H 02/10/20 11:09 Pulse Ox 95 02/10/20 11:09 Body Mass Index 34.8 GENERAL APPEARANCE: in no acute distress, well developed, well nourished. HEENT: unremarkable. HEAD: normocephalic, atraumatic. NECK/THYROID: no carotid bruit, JVD positive. SKIN: no suspicious lesions, warm and dry. HEART: no murmurs, regular rate and rhythm, S1, S2 normal. LUNGS: clear to auscultation bilaterally. ABDOMEN: normal, bowel sounds present, soft, nontender, nondistended. EXTREMITIES: mild edema peripherally. PERIPHERAL PULSES: equal. NEUROLOGIC: nonfocal, alert and oriented. PSYCH: mood/affect full range. Results Labs and Meds Result diagrams: 02/10/20 04:18 02/10/20 04:18 Lab results: Laboratory Results - last 24 hr 02/09/20 02/09/20 02/09/20 13:48 13:48 13:48 WBC 4.4 L RBC 2.33 L Hgb 7.5 L Hct 22.9 L MCV 98.3 H MCH 32.2 MCHC 32.8 RDW 17.5 H Plt Count 94 L D MPV 10.0 Immature Gran % (Auto) 0.5 H Neut % (Auto) 58.2 Lymph % (Auto) 22.9 Grimes % (Auto) 14.0 H Eos % (Auto) 3.7 Baso % (Auto) 0.7 Lymph # (Auto) 1.0 L Grimes # (Auto) 0.6 Eos # (Auto) 0.2 Baso # (Auto) 0.0 Abs Immat Gran (auto) 0.02 Absolute Neuts (auto) 2.6 Absolute Nucleated RBC 0.000 Nucleated RBC % (auto) 0.0 Smear Tech's Comments Hold Blue Top SEE NOTE Sodium 131 L Potassium 3.8 Chloride 99 Carbon Dioxide 27 Anion Gap 9 L BUN 6 L Creatinine 0.64 Estim Creat Clear Calc 104.7 Estimated GFR > 60 POC Glucose Random Glucose 121 H Lactic Acid Calcium 7.7 L Magnesium 1.7 Total Bilirubin 3.0 H Direct Bilirubin 2.1 H AST 39 H D ALT 20 Alkaline Phosphatase 135 H D Ammonia Troponin I High Sens B-Natriuretic Peptide Total Protein 5.2 L Albumin 2.3 L COVID-19 (GIOVANI) COVID-[employer] 02/09/20 02/09/20 02/09/20 13:48 15:58 16:05 WBC RBC Hgb Hct MCV MCH MCHC RDW Plt Count MPV Immature Gran % (Auto) Neut % (Auto) Lymph % (Auto) Grimes % (Auto) Eos % (Auto) Baso % (Auto) Lymph # (Auto) Grimes # (Auto) Eos # (Auto) Baso # (Auto) Abs Immat Gran (auto) Absolute Neuts (auto) Absolute Nucleated RBC Nucleated RBC % (auto) Smear Tech's Comments Hold Blue Top Sodium Potassium Chloride Carbon Dioxide Anion Gap BUN Creatinine Estim Creat Clear Calc Estimated GFR POC Glucose Random Glucose Lactic Acid Calcium Magnesium Total Bilirubin Direct Bilirubin AST ALT Alkaline Phosphatase Ammonia 93 H Troponin I High Sens 4.0 D B-Natriuretic Peptide Total Protein Albumin COVID-19 (GIOVANI) Negative COVID-[employer] See Note 02/09/20 02/09/20 02/10/20 16:05 16:05 04:18 WBC 3.2 L RBC 2.39 L Hgb 7.6 L Hct 23.0 L MCV 96.2 MCH 31.8 MCHC 33.0 RDW 17.2 H Plt Count 77 L MPV 10.5 Immature Gran % (Auto) 1.6 H Neut % (Auto) 83.1 H Lymph % (Auto) 13.4 L Grimes % (Auto) 1.9 L Eos % (Auto) 0.0 Baso % (Auto) 0.0 Lymph # (Auto) 0.4 L Grimes # (Auto) 0.1 Eos # (Auto) 0.0 Baso # (Auto) 0.0 Abs Immat Gran (auto) 0.05 H Absolute Neuts (auto) 2.7 Absolute Nucleated RBC 0.000 Nucleated RBC % (auto) 0.0 Smear Tech's Comments VERIFIED Hold Blue Top Sodium Potassium Chloride Carbon Dioxide Anion Gap BUN Creatinine Estim Creat Clear Calc Estimated GFR POC Glucose Random Glucose Lactic Acid 1.3 Calcium Magnesium Total Bilirubin Direct Bilirubin AST ALT Alkaline Phosphatase Ammonia Troponin I High Sens B-Natriuretic Peptide 278 H Total Protein Albumin COVID-19 (GIOVANI) COVID-19 Clin Com 02/10/20 02/10/20 02/10/20 04:18 07:54 11:01 WBC RBC Hgb Hct MCV MCH MCHC RDW Plt Count MPV Immature Gran % (Auto) Neut % (Auto) Lymph % (Auto) Grimes % (Auto) Eos % (Auto) Baso % (Auto) Lymph # (Auto) Grimes # (Auto) Eos # (Auto) Baso # (Auto) Abs Immat Gran (auto) Absolute Neuts (auto) Absolute Nucleated RBC Nucleated RBC % (auto) Smear Tech's Comments Hold Blue Top Sodium 132 L Potassium 3.5 Chloride 98 Carbon Dioxide 25 Anion Gap 13 BUN 7 L Creatinine 0.74 Estim Creat Clear Calc 90.5 Estimated GFR > 60 POC Glucose 175 H 220 H Random Glucose 241 H D Lactic Acid Calcium 7.7 L Magnesium Total Bilirubin Direct Bilirubin AST ALT Alkaline Phosphatase Ammonia Troponin I High Sens B-Natriuretic Peptide Total Protein Albumin COVID-19 (GIOVANI) COVID-19 Clin Com 02/10/20 11:35 WBC RBC Hgb Hct MCV MCH MCHC RDW Plt Count MPV Immature Gran % (Auto) Neut % (Auto) Lymph % (Auto) Grimes % (Auto) Eos % (Auto) Baso % (Auto) Lymph # (Auto) Grimes # (Auto) Eos # (Auto) Baso # (Auto) Abs Immat Gran (auto) Absolute Neuts (auto) Absolute Nucleated RBC Nucleated RBC % (auto) Smear Tech's Comments Hold Blue Top Sodium Potassium Chloride Carbon Dioxide Anion Gap BUN Creatinine Estim Creat Clear Calc Estimated GFR POC Glucose Random Glucose Lactic Acid Calcium Magnesium Total Bilirubin Direct Bilirubin AST ALT Alkaline Phosphatase Ammonia 106 H Troponin I High Sens B-Natriuretic Peptide Total Protein Albumin COVID-19 (GIOVANI) COVID-19 Clin Com Assessment and Plan (1) Hepatic encephalopathy: Status: Acute (2) Congestive heart failure: Status: Acute pleasant 54 year female who is admitted with hepatic encephalopathy and dyspnea. Chest x-ray showed some ground-glass changes. Clinically she had shortness of breath and orthopnea. She has improved significantly with Lasix. She was on torsemide at home. I think we continue the IV diuretics today. we will reassess and adjust her to oral diuretics tomorrow. She will need echocardiography to assess for any structural issues. treatment for diabetic encephalopathy as before. With diuresis please monitor potassium as hypokalemia can trigger Hepatic encephalopathy. Thank you for allowing me to participate in the care of your patient. Please feel free to contact me if you have any questions.
[2020-02-10 16:30] LABS: Glucose, Whole Blood 121 mg/dL (60-115)
[2020-02-10] MEDS: cefTRIAXone sodium 1 GM in 0.9 % Sodium Chloride 50 ML IV (17:02)
[2020-02-10 20:10] LABS: Glucose, Whole Blood 128 mg/dL (60-115)
[2020-02-11] MEDS: oxyCODONE HCl Immed Release 5 MG TABLET PO ×3 (01:07→08:44)
[2020-02-11 03:45] VITALS: BP 132/85; PULSE 92; RESP 20; TEMP 36.7; O2SAT 99
[2020-02-11] MEDS: Albuterol Sulfate 90 MCG 8 GM INHALER 2 PUFF INHALE (05:08)
[2020-02-11 06:00] VITALS: BMI 35.2
[2020-02-11] MEDS: Azithromycin 500 MG TABLET PO (06:43)
[2020-02-11 07:32] LABS: Hematocrit 24.7 % (37-47); Hemoglobin 7.8 g/dl (12.0-16.0); Mean Corpuscular HGB Conc 31.6 g/dl (31.0-35.0); Mean Corpuscular Hemoglobin 31.5 pg (27.0-33.0); Mean Corpuscular Volume 99.6 fL (80-98); Platelet Count 129 X10*3/uL (160-400); Red Blood Count 2.48 X10*6/uL (4.20-5.50); Red Cell Distribution Width 18.5 % (11.0-16.0); White Blood Count 10.8 X10*3/uL (4.8-10.8)
[2020-02-11 07:34] VITALS: BP 134/63; PULSE 86; RESP 18; TEMP 36.7; O2SAT 98
[2020-02-11 07:39] LABS: Glucose, Whole Blood 107 mg/dL (60-115)
[2020-02-11 07:40] LABS: Ammonia 59 umol/L (13-55)
[2020-02-11 08:02] LABS: Anion Gap 11 (12-20); Blood Urea Nitrogen 8 mg/dL (9-16); Calcium 8.5 mg/dL (8.4-10.2); Carbon Dioxide 29 mmol/L (22-29); Chloride 95 mmol/L (96-108); Creatinine Clr Calc Pharmacy 87.7; Estimated Glomerular Filt Rate > 60; Glucose Random 107 mg/dL (60-115); Potassium 3.7 mmol/l (3.3-5.1); Sodium 131 mmol/L (135-145)
[2020-02-11] MEDS: Furosemide 40 MG/4 ML VIAL IVPUSH (08:35)
[2020-02-11] MEDS: Calcium Carbonate 750 MG TAB.CHEW PO (08:36)
[2020-02-11] MEDS: risperiDONE 1 MG TABLET PO (08:36)
[2020-02-11] MEDS: 0.9 % Sodium Chloride Flush 3 ML SYRINGE IVFLUSH (08:36)
[2020-02-11] MEDS: rifAXIMin 550 MG TABLET PO (08:36)
[2020-02-11] MEDS: Potassium Chloride ER 20 MEQ TAB.ER.PRT PO (08:36)
[2020-02-11] MEDS: Omeprazole 20 MG CAPSULE.DR PO (08:36)
[2020-02-11] MEDS: Spironolactone 25 MG TABLET PO (08:36)
[2020-02-11] MEDS: Gabapentin 300 MG CAPSULE PO (08:36)
[2020-02-11] MEDS: Thiamine HCL 100 MG TABLET PO (08:37)
[2020-02-11] MEDS: Magnesium Oxide 400 MG TABLET PO (08:37)
[2020-02-11] MEDS: Lactulose 20 GM/30 ML SOLUTION 30 GM PO (08:37)
[2020-02-11] MEDS: Folic Acid 1 MG TABLET PO (08:38)
--- NOTE | 2020-02-11 09:04 | MHC.CM.PN ---
Per MD, Patient has been medically cleared for dc to home today, no services, at 10 AM via [employer] van.Patient is aware of and in agreement with the dc plan.Last IMM addressed yesterday.
== END 2020-02-11 11:18 | disposition home or self-care (01) | DRG 441 ==
LOC: HO.ED 19:40 → HO.IMC 22:11
PROVIDERS: Internal Medicine; Nurse Practitioner Family; Admitting Provider Internal Medicine; Emergency Provider Emergency Medicine Emergency Medical Services; Visit Provider Hospitalist
DX: K72.90 Hepatic failure, unspecified without coma (principal); J18.9 Pneumonia, unspecified organism; E87.1 Hypo-osmolality and hyponatremia; J44.0 Chronic obstructive pulmonary disease with (acute) lower respiratory infection; F32.9 Major depressive disorder, single episode, unspecified; F43.10 Post-traumatic stress disorder, unspecified; F17.210 Nicotine dependence, cigarettes, uncomplicated; K70.30 Alcoholic cirrhosis of liver without ascites; Z91.14 Patient's other noncompliance with medication regimen; G89.29 Other chronic pain; D69.6 Thrombocytopenia, unspecified; Z71.6 Tobacco abuse counseling; D63.8 Anemia in other chronic diseases classified elsewhere; Z20.828 Contact with and (suspected) exposure to other viral communicable diseases; Z88.0 Allergy status to penicillin; Z88.2 Allergy status to sulfonamides; Z79.899 Other long term (current) drug therapy
CPT/HCPCS: 36415; 71046; 80048; 80076; 82140; 82947; 83605; 83735; 83880; 84484; 85025; 85027; 87040; 87635; 93005; 94640; 96365; 96375; 99285; J0696; J1650; J1940; J2405; J2930

== ENCOUNTER 2020-02-13 13:01 | Inpatient (IN) | payer OTHER, SELFPAY ==
[2020-02-13 13:10] VITALS: BP 102/37; PULSE 90; RESP 20; TEMP 36.9; O2SAT 100; BMI 37.2
--- NOTE | 2020-02-13 13:30 | ED.GENADULT ---
HPI - General Adult General Chief complaint: General Medical Stated complaint: abd/ leg swelling Time Seen by Provider: 02/13/20 13:30 Source: patient Mode of arrival: ambulatory Limitations: no limitations History of Present Illness HPI narrative: patient with history of alcoholic liver cirrhosis hyponatremia, ascites, COPD elevated ammonia level was admitted here on 02/08 and discharged on 02/10 for hepatic encephalopathy with ammonia level of 93 ,no paracentesis was done since discharge patient noticed increased abdominal swelling with leg swelling which is getting worse now with increased shortness of breath on ambulation. patient denies any fever or pain in the abdomen as such lasting patient has ascites tap was more than 1 year ago. Patient has been sober for several months patient denies any nausea/vomiting / diarrhea / chest pain cough feels little short of breath Related Data Home Medications Medication Instructions Recorded Confirmed Xifaxan 550 mg PO BID 01/20/20 02/09/20 folic acid 1 mg PO DAILY 01/20/20 02/09/20 hydroxyzine pamoate 25 mg PO TID PRN 01/20/20 02/09/20 lactulose 15 g PO TID 01/20/20 02/09/20 magnesium oxide 400 mg PO BID 01/20/20 02/09/20 melatonin 3 mg PO BEDTIME PRN 01/20/20 02/09/20 omeprazole 20 mg PO BID 01/20/20 02/09/20 potassium chloride 20 meq PO BID 01/20/20 02/09/20 risperidone 1 mg PO BID 01/20/20 02/09/20 Flovent HFA 1 puff INHALATION BID 02/09/20 02/09/20 albuterol sulfate 2 puff INHALATION Q4H PRN 02/09/20 02/09/20 calcium carbonate [Antacid Ext Str 1 tab PO TID PRN 02/09/20 02/09/20 (calcium carb)] thiamine HCl (vitamin B1) 1 tab PO DAILY 02/09/20 02/09/20 baclofen mg PO 02/13/20 Previous Rx's Medication Instructions Recorded gabapentin 300 mg PO TID #90 cap 01/26/20 spironolactone 25 mg PO DAILY #30 tab 01/28/20 torsemide 10 mg PO DAILY 30 Days #15 tab 01/28/20 Allergies Allergy/AdvReac Type Severity Reaction Status Date / Time lamotrigine [From LAMICTAL] Allergy Intermediate RASH Verified 01/20/20 00:45 amoxicillin [AMOXICILLIN] Allergy Unknown NAUSEA & Verified 01/20/20 00:45 VOMITING Iodinated Contrast Media Allergy Unknown ANAPHYLAXIS Verified 01/20/20 00:45 [CONTRAST, IV] Sulfa (Sulfonamide Allergy Unknown UNKNOWN Verified 01/20/20 00:45 Antibiotics) [SULFA (SULFONAMIDE ANTIBIOTICS)] sulfamethoxazole Allergy Unknown UNK Verified 01/20/20 00:45 [From BACTRIM] trimethoprim [From BACTRIM] Allergy Unknown UNK Verified 01/20/20 00:45 Review of Systems Review of Systems: REVIEW OF SYSTEMS: Pertinent positives and negatives are stated above in the history. GEN: no fevers, chills, fatigue HEENT: no nasal congestion, sore throat, ear pain NEURO: no headache, dizziness, focal weakness no altered sensorium PULM: no cough, shortness of breath CV: no chest pain, palpitations, LE edema ABD: no abdominal pain, nausea, vomiting, diarrhea no black stools /melena : no dysuria, urgency, frequency SKIN: no rash, increased leg swelling ROS otherwise negative x 10 PMFSH Past Medical History Medical History (Updated 02/13/20 @ 16:36 by MARYLU Aguilar) Anemia Anxiety Chronic back pain Cirrhosis Coagulopathy COPD (chronic obstructive pulmonary disease) Depression Diabetes 1.5, managed as type 2 Hyponatremia PTSD (post-traumatic stress disorder) Thrombocytopenia Surgical History History of cholecystectomy Previous back surgery S/P TIPS (transjugular intrahepatic portosystemic shunt) Family History Family History (Updated 02/13/20 @ 16:37 by MARYLU Aguilar) Other HTN (hypertension) Social History Social History (Updated 02/13/20 @ 16:38 by MARYLU Aguilar) Household Members: Significant Other Housing: Apartment Alcohol intake: former Smoking Status: Current every day smoker Tobacco Type: Cigarette Packs Per Day: 0.5 Cigarettes Per Day: 10.0 Use of substances other than those prescribed or required for medical reasons: No Substance Use Type: Marijuana Advance Directives: No Advance Directives Information Provided: No service: No Current occupational status: employed and disabled Physical Exam Vital Signs: Vital Signs: Last Vital Signs Temp 98.5 F 02/13/20 13:10 Pulse 81 02/13/20 16:39 Resp 20 02/13/20 13:10 BP 109/44 L 02/13/20 16:39 Pulse Ox 100 02/13/20 13:10 Body Mass Index 37.2 Const: General: cooperative, healthy appearing, comfortable, no acute distress and well developed Nutritional Appearance: average body habitus Orientation/consciousness: oriented to person, oriented to place, oriented to time and patient oriented x3 Limitations: no limitations HENMT: Head: Yes normal to inspection Ears: hearing grossly normal bilaterally Mouth: moist mucous membranes Eyes: Conjunctivae: conjunctivae normal (pallor) Sclerae: scleral abnormal ( icterus+) Neck: Neck: Yes normal visual inspection and Yes no JVD Carotids: normal carotid upstroke Resp: Effort & Inspection: normal respiratory effort and able to speak in complete sentences Auscultation: clear to auscultation bilaterally, no crackles, no rales and no rhonchi Cardio: Jugular venous distension: no JVD Palpation: normal PMI Rate: regular rate Rhythm: regular rhythm Heart sounds: S1 normal heart sound present, S2 normal heart sound present and no murmurs GI: Inspection: Yes distended (Ascites+ ) and Yes obesity Palpation (GI): Soft to palpation and no guarding Percussion: Yes Fluid wave present Auscultation: normal bowel sounds Rectal Exam - Female: visual inspection normal, normal sphincter tone and other ( brown color stool) : General: Yes no CVA tenderness Back/Spine/Pelvis: Back: no CVA tenderness Thoracic/Lumbar Spine: thoracic and lumbar spine normal to inspection Skin: General skin exam: no rashes or lesions noted Neuro: General: oriented to person, oriented to place, oriented to time, patient oriented x3, gait normal, tone normal, moves all extremities, Normal light touch and pain sensation and no focal motor deficits Cranial nerves: Yes CN's II-XII intact bilaterally and Yes Nystagmus not present Gait exam (Neuro): Normal gait present Motor exam (neuro): 5/5 motor strength present throughout Extrem: General: Yes full ROM and Yes edema (4+) Course Course Course Narrative: patient with alcoholic cirrhosis with increased ammonia level increased from 59 on 02/04 to 86 now and decreased hemoglobin from 7.8 to 7 now patient denies any altered sensorium at this time no significant abdominal pain CT scan showed small amount of ascites. Patient is afebrile saturating 100% at room air at this time there is no indication of ascitic tap. Will admitfor blood transfusion for chronic anemia secondary to chronic blood loss and worsening of alcoholic cirrhosis Medical Decision Making Lab Data Result diagrams: 02/13/20 14:34 02/13/20 14:33 Labs: Lab Results 02/13/20 02/13/20 02/13/20 Range/Units 14:33 14:33 14:33 WBC (4.8-10.8) X10*3/uL RBC (4.20-5.50) X10*6/uL Hgb (12.0-16.0) g/dl Hct (37-47) % MCV (80-98) fL MCH (27.0-33.0) pg MCHC (31.0-35.0) g/dl RDW (11.0-16.0) % Plt Count (160-400) X10*3/uL MPV (9.4-12.3) fL Immature Gran % (Auto) (0.0-0.4) % Neut % (Auto) (45-73) % Lymph % (Auto) (20-40) % Owsley % (Auto) (2-11) % Eos % (Auto) (0-4) % Baso % (Auto) (0-2) % Lymph # (Auto) (1.2-4.9) X10*3/uL Owsley # (Auto) (0.1-1.2) X10*3/uL Eos # (Auto) (0.0-0.4) X10*3/uL Baso # (Auto) (0.0-0.2) X10*3/uL Abs Immat Gran (auto) (0.00-0.03) X10*3/uL Absolute Neuts (auto) (2.0-8.3) X10*3/uL Absolute Nucleated RBC (0.0-0.012) X10*3/uL Nucleated RBC % (auto) (0.0-0.2) /100WBC PT 20.4 H (10.8-13.0) SEC INR 1.7 H (0.9-1.1) APTT 45.7 H (24.1-38.0) SEC Sodium 131 L (135-145) mmol/L Potassium 4.7 D (3.3-5.1) mmol/l Chloride 99 (96-108) mmol/L Carbon Dioxide 26 (22-29) mmol/L Anion Gap 11 L (12-20) BUN 7 L (9-16) mg/dL Creatinine 0.69 (0.5-1.4) mg/dL Estim Creat Clear Calc 99.7 Estimated GFR > 60 Random Glucose 93 (60-115) mg/dL Calcium 7.6 L D (8.4-10.2) mg/dL Total Bilirubin 2.9 H (0.0-1.0) mg/dL AST 45 H (5-31) U/L ALT 20 (0-31) U/L Alkaline Phosphatase 128 H (39-117) U/L Ammonia (13-55) umol/L Total Protein 4.6 L (6.5-8.0) g/dL Albumin 2.1 L (3.5-5.0) g/dL Lipase 40 (8-78) U/L Stool Occult Blood (NEG) 02/13/20 02/13/20 02/13/20 Range/Units 14:34 14:34 16:26 WBC 5.8 (4.8-10.8) X10*3/uL RBC 2.15 L (4.20-5.50) X10*6/uL Hgb 7.0 L* (12.0-16.0) g/dl Hct 21.8 L (37-47) % MCV 101.4 H (80-98) fL MCH 32.6 (27.0-33.0) pg MCHC 32.1 (31.0-35.0) g/dl RDW 18.8 H (11.0-16.0) % Plt Count 76 L D (160-400) X10*3/uL MPV 10.3 (9.4-12.3) fL Immature Gran % (Auto) 1.4 H (0.0-0.4) % Neut % (Auto) 70.3 (45-73) % Lymph % (Auto) 16.5 L (20-40) % Owsley % (Auto) 8.0 (2-11) % Eos % (Auto) 3.1 (0-4) % Baso % (Auto) 0.7 (0-2) % Lymph # (Auto) 1.0 L (1.2-4.9) X10*3/uL Owsley # (Auto) 0.5 (0.1-1.2) X10*3/uL Eos # (Auto) 0.2 (0.0-0.4) X10*3/uL Baso # (Auto) 0.0 (0.0-0.2) X10*3/uL Abs Immat Gran (auto) 0.08 H (0.00-0.03) X10*3/uL Absolute Neuts (auto) 4.1 (2.0-8.3) X10*3/uL Absolute Nucleated RBC 0.000 (0.0-0.012) X10*3/uL Nucleated RBC % (auto) 0.0 (0.0-0.2) /100WBC PT (10.8-13.0) SEC INR (0.9-1.1) APTT (24.1-38.0) SEC Sodium (135-145) mmol/L Potassium (3.3-5.1) mmol/l Chloride (96-108) mmol/L Carbon Dioxide (22-29) mmol/L Anion Gap (12-20) BUN (9-16) mg/dL Creatinine (0.5-1.4) mg/dL Estim Creat Clear Calc Estimated GFR Random Glucose (60-115) mg/dL Calcium (8.4-10.2) mg/dL Total Bilirubin (0.0-1.0) mg/dL AST (5-31) U/L ALT (0-31) U/L Alkaline Phosphatase (39-117) U/L Ammonia 86 H (13-55) umol/L Total Protein (6.5-8.0) g/dL Albumin (3.5-5.0) g/dL Lipase (8-78) U/L Stool Occult Blood POS (NEG) Discharge Plan Discharge Clinical Impression: Advanced hepatic cirrhosis Anemia Qualifiers: Anemia type: iron deficiency Iron deficiency anemia type: chronic blood loss Qualified Code(s): D50.0 - Iron deficiency anemia secondary to blood loss (chronic) Patient Disposition: Admitted As Inpatient
--- NOTE | 2020-02-13 13:46 | CT_ITS ---
EXAMINATION: CT ABDOMEN AND PELVIS WITHOUT CONTRAST CLINICAL INFORMATION: Hepatic cirrhosis. Worsening ascites. COMPARISON: Chest CT from 01/20/2020. TECHNIQUE: Multidetector volumetric imaging was performed from the superior aspect of the liver through the pubic symphysis. Sagittal and coronal reformatted images were obtained on the technologist's workstation. This CT examination was performed using dose optimization techniques as appropriate, variously including the following: *Automated exposure control *Adjustment of mA and/or kV according to patient size (this includes techniques or standardized protocols for targeted exams where dose is matched to indication/reason for exam; i.e. extremities or head) *Use of iterative reconstruction technique DLP: 738 mGy-cm FINDINGS: LUNG BASES: No consolidation or pleural effusion at either base. Subpleural interstitial/septal thickening in the bases (i.e., mild interstitial edema). LIVER: Severe cirrhosis of the contracted nodular liver, status post transhepatic portosystemic shunt placement. No focal liver lesions are identified on this noncontrast examination. GALLBLADDER AND BILIARY TREE: The gallbladder is surgically absent. No intrahepatic or extrahepatic bile duct dilatation. PANCREAS: Normal. No evidence of pancreatic ductal dilatation or mass. SPLEEN: Mild splenomegaly. Spleen measures up to approximately 13 cm maximum dimension. ADRENAL GLANDS: Normal. KIDNEYS AND URETERS: The kidneys have normal size. No hydroureteronephrosis, urolithiasis or perinephric fluid collection. No evidence of renal mass. BOWEL AND PERITONEUM: Stomach is unremarkable. Streak artifact from metallic density near the proximal lesser curvature of the stomach. Correlate for remote history of surgery or vascular coiling in this area. No dilated bowel loops. Small volume of ascitic fluid is present in the abdomen and pelvis. No overt inflammation or obstruction along the gastrointestinal tract. No pneumoperitoneum. ABDOMINAL WALL: Anasarca with edema of subcutaneous tissues of the abdominal wall, back, flanks and thighs. VASCULATURE: Atherosclerosis of the abdominal aorta and iliac arteries without aneurysm. LYMPH NODES: No pathologic sized lymph nodes in the abdomen or pelvis. No inguinal lymphadenopathy. BLADDER AND PELVIC VISCERA: The urinary bladder is unremarkable. Uterus and adnexa are unremarkable. A few phleboliths are noted within the pelvis. SKELETAL: Chronic, severe degenerative disc disease of L2-L3. Prior surgical spinal fusion at L4-S1. The posterior fusion rods and transpedicular screws are intact. No hardware loosening. CT/CT abdomen pelvis wo con IMPRESSION: * Hepatic cirrhosis and splenomegaly. * Anasarca is noted. Findings include mild interstitial edema in the visualized lung bases, small volume of ascites, and diffuse abdominal wall edema.
[2020-02-13 14:41] LABS: MANUAL DIFF FLAG NO
[2020-02-13 14:44] LABS: Basophils Percent Auto 0.7 % (0-2); Eosinophils Absolute Auto 0.2 X10*3/uL (0.0-0.4); Eosinophils Percent Auto 3.1 % (0-4); Hematocrit 21.8 % (37-47); Imm Gran Abs Auto 0.08 X10*3/uL (0.00-0.03); Imm Gran Pct Auto 1.4 % (0.0-0.4); Lymphocytes Percent Auto 16.5 % (20-40); Mean Corpuscular HGB Conc 32.1 g/dl (31.0-35.0); Mean Corpuscular Hemoglobin 32.6 pg (27.0-33.0); Mean Corpuscular Volume 101.4 fL (80-98); Mean Platelet Volume 10.3 fL (9.4-12.3); Monocytes Absolute Auto 0.5 X10*3/uL (0.1-1.2); Neutrophils Absolute Auto 4.1 X10*3/uL (2.0-8.3); Neutrophils Percent Auto 70.3 % (45-73); Red Blood Count 2.15 X10*6/uL (4.20-5.50); Red Cell Distribution Width 18.8 % (11.0-16.0); White Blood Count 5.8 X10*3/uL (4.8-10.8)
[2020-02-13 14:48] LABS: INTERNATIONAL NORM RATIO 1.7 (0.9-1.1); Prothrombin Time 20.4 SEC (10.8-13.0)
[2020-02-13 14:50] LABS: Partial Thromboplastin Time 45.7 SEC (24.1-38.0)
[2020-02-13 14:51] LABS: Platelet Count 76 X10*3/uL (160-400)
[2020-02-13 15:01] LABS: Ammonia 86 umol/L (13-55)
[2020-02-13 15:10] LABS: Alanine Aminotransferase 20 U/L (0-31); Albumin Level 2.1 g/dL (3.5-5.0); Alkaline Phosphatase 128 U/L (39-117); Anion Gap 11 (12-20); Aspartate Amino Transferase 45 U/L (5-31); Bilirubin Total 2.9 mg/dL (0.0-1.0); Blood Urea Nitrogen 7 mg/dL (9-16); Calcium 7.6 mg/dL (8.4-10.2); Carbon Dioxide 26 mmol/L (22-29); Chloride 99 mmol/L (96-108); Creatinine Clr Calc Pharmacy 99.7; Estimated Glomerular Filt Rate > 60; Glucose Random 93 mg/dL (60-115); Lipase 40 U/L (8-78); Potassium 4.7 mmol/l (3.3-5.1); Sodium 131 mmol/L (135-145); Total Protein 4.6 g/dL (6.5-8.0)
--- NOTE | 2020-02-13 16:18 | XR_ITS ---
EXAMINATION: XR CHEST CLINICAL INFORMATION: Fluid overload COMPARISON: February 09, 2020 and January 20, 2020 TECHNIQUE: AP portable view of the chest was obtained. FINDINGS: Heart normal size. No evidence of pulmonary edema. No definite confluent parenchymal disease is appreciated. No pneumothorax or pleural effusion. An embolization coil is seen overlying the medial left hemidiaphragm. XR/XR chest 1V IMPRESSION: No definite acute parenchymal disease. No evidence of pulmonary edema.
[2020-02-13] MEDS: ondansetron HCL 4 MG/2 ML VIAL IVPUSH (16:20)
[2020-02-13] MEDS: Morphine Sulfate 4 MG/ML CARTRIDGE 2 MG IVPUSH (16:20)
[2020-02-13] MEDS: Lactulose 20 GM/30 ML SOLUTION 30 GM PO (16:20)
[2020-02-13] MEDS: Pantoprazole Sodium 40 MG/10 ML VIAL IVPUSH (16:20)
--- NOTE | 2020-02-13 16:20 | PM.EVENT ---
Event Note Date of Service: 02/13/20 Event Note: Patient seen and examined independently and was present during queen portion of E/M service. Agree with midlevel's history, physical, assessment, and plan. 55F presented with weakness weakness due to advanced liver cirrhosis complicated by anasarca, anemia, hepatic encephalopathy transfuse one unit, lactulose, echo
--- NOTE | 2020-02-13 16:32 | P.HPHOSP_ITS ---
History of Present Illness Date of Service: 02/13/20 Chief Complaint: weakness, shortness of breath this is a 55-year-old female with a history of alcoholic liver cirrhosis presents to the emergency department with complaints shortness of breath and weakness. She was recently admitted under similar circumstances but wanted to be discharged on 02/10 as it was her birthday. She reports abdominal distension, shortness of breath beginning yesterday as well as increasing leg edema. Lab work was significant for anemia with an H/ H is 7.0/21.8 which is slightly below her baseline. In addition her ammonia level is elevated 86 and she had associated asterixis. The remainder of her labs were at her baseline. a unit of blood was ordered in the emergency department as well as lactulose and Lasix and admission was requested for further management. Review of Systems Review of Systems: Yes all other systems are reviewed and are negative Constitutional: Constitutional: Denies chills and Denies fever(s) Cardiovascular: Cardiovascular: Denies chest pain and Reports dyspnea Respiratory: Respiratory: Denies cough and Reports dyspnea Gastrointestinal: Gastrointestinal: Denies abdominal pain [facility] Medical History (Updated 02/13/20 @ 16:36 by MARYLU Aguilar) Anemia Anxiety Chronic back pain Cirrhosis Coagulopathy COPD (chronic obstructive pulmonary disease) Depression Diabetes 1.5, managed as type 2 Hyponatremia PTSD (post-traumatic stress disorder) Thrombocytopenia Functional capacity: independent ambulation Family History (Updated 02/13/20 @ 16:37 by MARYLU Aguilar) Other HTN (hypertension) Family history: reviewed and not pertinent Surgical History History of cholecystectomy Previous back surgery S/P TIPS (transjugular intrahepatic portosystemic shunt) Social History (Updated 02/13/20 @ 16:38 by MARYLU Aguilar) Household Members: Significant Other Housing: Apartment Do you presently have visiting nurse or other [facility] services: [facility] Alcohol intake: former Smoking Status: Current every day smoker Tobacco Type: Cigarette Packs Per Day: 0.5 Cigarettes Per Day: 10.0 Smoked in Last 30 Days: Yes Patient Interested in Nicotine Replacement: No Patient Given Instructions on How to Stop Smoking: No Second Hand Smoke Exposure: No Use of substances other than those prescribed or required for medical reasons: Yes Substance Use Type: Marijuana Substance Use Frequency: Occasionally Currently Displaying Signs/Symptoms of Drug Intoxication Withdrawal: No Any prior treatment program specific to substance use: No Have you been hit, kicked, punched, or otherwise hurt by someone within the past year? If so, by whom?: No Do you feel safe in your current relationship?: Yes Is there a partner from a previous relationship who is making you feel unsafe now?: No Are you made to feel afraid or neglected: No Advance Directives: No Advance Directives Information Provided: No Do you have thoughts of harming others: None Do you have a plan to hurt others: No Plan Recently lost weight without trying: No service: No Current occupational status: employed and disabled Meds Allergies Allergy/AdvReac Type Severity Reaction Status Date / Time lamotrigine [From LAMICTAL] Allergy Intermediate RASH Verified 01/20/20 00:45 amoxicillin [AMOXICILLIN] Allergy Unknown NAUSEA & Verified 01/20/20 00:45 VOMITING Iodinated Contrast Media Allergy Unknown ANAPHYLAXIS Verified 01/20/20 00:45 [CONTRAST, IV] Sulfa (Sulfonamide Allergy Unknown UNKNOWN Verified 01/20/20 00:45 Antibiotics) [SULFA (SULFONAMIDE ANTIBIOTICS)] sulfamethoxazole Allergy Unknown UNK Verified 01/20/20 00:45 [From BACTRIM] trimethoprim [From BACTRIM] Allergy Unknown UNK Verified 01/20/20 00:45 Home Medications Medication Instructions Recorded Confirmed Type Xifaxan 550 mg PO BID 01/20/20 02/13/20 History folic acid 1 mg PO DAILY 01/20/20 02/13/20 History hydroxyzine pamoate 25 mg PO TID PRN 01/20/20 02/13/20 History lactulose 15 g PO TID 01/20/20 02/13/20 History magnesium oxide 400 mg PO BID 01/20/20 02/13/20 History melatonin 3 mg PO BEDTIME PRN 01/20/20 02/13/20 History omeprazole 20 mg PO BID 01/20/20 02/13/20 History potassium chloride 20 meq PO BID 01/20/20 02/13/20 History risperidone 1 mg PO BID 01/20/20 02/13/20 History Flovent HFA 1 puff INHALATION BID 02/09/20 02/13/20 History albuterol sulfate 2 puff INHALATION Q4H PRN 02/09/20 02/13/20 History calcium carbonate [Antacid Ext Str 1 tab PO TID PRN 02/09/20 02/13/20 History (calcium carb)] thiamine HCl (vitamin B1) 1 tab PO DAILY 02/09/20 02/13/20 History baclofen 10 mg PO 02/13/20 History Physical Exam Vital Signs and Narrative: Vital Signs: Last Vital Signs Temp 98.5 F 02/13/20 13:10 Pulse 90 02/13/20 13:10 Resp 20 02/13/20 13:10 BP 102/37 L 02/13/20 13:10 Pulse Ox 100 02/13/20 13:10 Body Mass Index 37.2 Const: Nutritional Appearance: well nourished Orientation/consciousness: patient oriented x3 HENMT: Head: Yes normocephalic and Yes atraumatic Eyes: Sclerae: scleral abnormal bilateral ( bilateral scleral icterus) Chest: Chest palpation & inspection: normal inspection of the chest Resp: Effort & Inspection: normal respiratory effort and no respiratory distress Cardio: Rate: regular rate Rhythm: regular rhythm GI: Palpation (GI): Soft to palpation and nontender Skin: General skin exam: no rashes or lesions noted Neuro: General: patient oriented x3 Cranial nerves: Yes CN's II-XII intact bilaterally and Yes Bilaterally intact EOM present Extrem: Other: anasarca General: Yes normal to inspection Results Labs CBC and Chem 7: 02/13/20 14:34 02/13/20 14:33 Labs: Laboratory Results - last 24 hr 02/13/20 02/13/20 02/13/20 14:33 14:33 14:33 MCV MCH MCHC RDW Plt Count MPV Immature Gran % (Auto) Neut % (Auto) Lymph % (Auto) Steele % (Auto) Eos % (Auto) Baso % (Auto) Lymph # (Auto) Steele # (Auto) Eos # (Auto) Baso # (Auto) Abs Immat Gran (auto) Absolute Neuts (auto) Absolute Nucleated RBC Nucleated RBC % (auto) PT 20.4 H INR 1.7 H APTT 45.7 H Anion Gap 11 L Estim Creat Clear Calc 99.7 Estimated GFR > 60 Random Glucose 93 Calcium 7.6 L D Total Bilirubin 2.9 H AST 45 H ALT 20 Alkaline Phosphatase 128 H Ammonia Total Protein 4.6 L Albumin 2.1 L Lipase 40 02/13/20 02/13/20 14:34 14:34 MCV 101.4 H MCH 32.6 MCHC 32.1 RDW 18.8 H Plt Count 76 L D MPV 10.3 Immature Gran % (Auto) 1.4 H Neut % (Auto) 70.3 Lymph % (Auto) 16.5 L Steele % (Auto) 8.0 Eos % (Auto) 3.1 Baso % (Auto) 0.7 Lymph # (Auto) 1.0 L Steele # (Auto) 0.5 Eos # (Auto) 0.2 Baso # (Auto) 0.0 Abs Immat Gran (auto) 0.08 H Absolute Neuts (auto) 4.1 Absolute Nucleated RBC 0.000 Nucleated RBC % (auto) 0.0 PT INR APTT Anion Gap Estim Creat Clear Calc Estimated GFR Random Glucose Calcium Total Bilirubin AST ALT Alkaline Phosphatase Ammonia 86 H Total Protein Albumin Lipase Imaging Radiologist's Impressions: Impressions Abdomen/Pelvis CT 02/13/20 13:46 IMPRESSION: * Hepatic cirrhosis and splenomegaly. * Anasarca is noted. Findings include mild interstitial edema in the visualized lung bases, small volume of ascites, and diffuse abdominal wall edema. Assessment and Plan (1) Anemia: Qualifiers: Anemia type: iron deficiency Iron deficiency anemia type: chronic blood loss Qualified Code(s): D50.0 - Iron deficiency anemia secondary to blood loss (chronic) Status: Acute (2) Diabetes 1.5, managed as type 2: Status: Acute (3) Chronic hyponatremia: Status: Acute (4) Hepatic encephalopathy: Status: Acute (5) Advanced hepatic cirrhosis: Status: Acute this is a 54-year-old female with a history of alcoholic liver cirrhosis s/p TIPS, COPD, bipolar disorder, chronic back pain, diabetes and recent admissions for hepatic encephalopathy and hyponatremia who presented with shortness of breath and weakness found to have anemia, hepatic encephalopathy hepatic encephalopathy ammonia level 86 with associated asterixis. awake and alert at this time. received 1 dose of lactulose in the ED - continue lactulose - monitor ammonia level shortness of breath fluid overload in setting of cirrhosis COVID negative echo continue diuretics alcoholic liver cirrhosis associated anemia, thrombocytopenia, coagulopathy - continue Aldactone, torsemide, rifaximin anemia received 1 unit of blood in the ED - follow CBC chronic hyponatremia Na 131 fluid restriction thrombocytopenia related to liver disease - follow CBC coagulopathy - related to liver disease. INR 1.7 received 1 dose of vitamin K in the ED - follow INR diabetes A1c 4.1 on recent admit chronic back pain - continue gabapentin dvt ppx - boots this case was discussed with Dr. seaman
[2020-02-13 16:33] LABS: OBS Int Ctl Valid YES; OBS1 POS (NEG)
[2020-02-13 16:39] VITALS: BP 109/44; PULSE 81
[2020-02-13] MEDS: Furosemide 40 MG/4 ML VIAL IVPUSH (16:42)
--- NOTE | 2020-02-13 16:42 | PC.NURSE ---
medicated per emar, xray at bedside. hospitalist orders in, med rec completed. pharmacy called for vit k.
[2020-02-13 16:58] LABS: COVID-19 Test Negative (Negative)
--- NOTE | 2020-02-13 17:08 | PC.NURSE ---
pt ambulated to and from restroom w steady gait.
[2020-02-13] MEDS: Phytonadione (Vit K1) 5 MG in 0.9 % Sodium Chloride 50 ML 50.5 MG IV (18:08)
[2020-02-13 18:24] VITALS: BP 102/54; PULSE 78; RESP 18; TEMP 36.4; O2SAT 100
[2020-02-13 20:24] LABS: Glucose, Whole Blood 142 mg/dL (60-115)
[2020-02-13] MEDS: Omeprazole 20 MG CAPSULE.DR PO (21:39)
[2020-02-13] MEDS: risperiDONE 1 MG TABLET PO (21:39)
[2020-02-13] MEDS: rifAXIMin 550 MG TABLET PO (21:39)
[2020-02-13] MEDS: Lactulose 20 GM/30 ML SOLUTION 15 GM PO (21:39)
[2020-02-13] MEDS: Gabapentin 300 MG CAPSULE PO (21:39)
[2020-02-13] MEDS: 0.9 % Sodium Chloride Flush 3 ML SYRINGE IVFLUSH (21:40)
[2020-02-13 21:56] VITALS: BP 105/42; PULSE 86; RESP 18; TEMP 36.8
[2020-02-13 22:13] VITALS: BP 104/76; PULSE 82; RESP 18; TEMP 36.8
[2020-02-14] VITALS (11 sets, daily range): BP systolic 90–145; BP diastolic 54–86; PULSE 78–87; RESP 16–20; TEMP 36.3–37.1; O2SAT 96–100
[2020-02-14] MEDS: Morphine Sulfate 2 MG/ML CARTRIDGE 1 MG IVPUSH (04:07)
[2020-02-14] MEDS: Omeprazole 20 MG CAPSULE.DR PO ×2 (06:04→15:33)
[2020-02-14 07:00] LABS: MANUAL DIFF FLAG NO
[2020-02-14 07:10] LABS: Basophils Percent Auto 0.6 % (0-2); Eosinophils Absolute Auto 0.2 X10*3/uL (0.0-0.4); Eosinophils Percent Auto 4.3 % (0-4); Hematocrit 25.4 % (37-47); Hemoglobin 8.2 g/dl (12.0-16.0); Imm Gran Abs Auto 0.07 X10*3/uL (0.00-0.03); Imm Gran Pct Auto 1.4 % (0.0-0.4); Lymphocytes Absolute Auto 0.8 X10*3/uL (1.2-4.9); Lymphocytes Percent Auto 16.5 % (20-40); Mean Corpuscular HGB Conc 32.3 g/dl (31.0-35.0); Mean Corpuscular Hemoglobin 31.5 pg (27.0-33.0); Mean Corpuscular Volume 97.7 fL (80-98); Mean Platelet Volume 10.9 fL (9.4-12.3); Monocytes Absolute Auto 0.4 X10*3/uL (0.1-1.2); Monocytes Percent Auto 8.4 % (2-11); Neutrophils Absolute Auto 3.4 X10*3/uL (2.0-8.3); Neutrophils Percent Auto 68.8 % (45-73); Red Cell Distribution Width 20.1 % (11.0-16.0); White Blood Count 4.9 X10*3/uL (4.8-10.8)
[2020-02-14 07:27] LABS: Ammonia 145 umol/L (13-55)
[2020-02-14 07:29] LABS: Platelet Count 77 X10*3/uL (160-400)
[2020-02-14 07:46] LABS: INTERNATIONAL NORM RATIO 1.7 (0.9-1.1); Prothrombin Time 20.6 SEC (10.8-13.0)
[2020-02-14 07:49] LABS: Alanine Aminotransferase 19 U/L (0-31); Albumin Level 1.9 g/dL (3.5-5.0); Alkaline Phosphatase 111 U/L (39-117); Aspartate Amino Transferase 46 U/L (5-31); Bilirubin Direct 2.5 mg/dL (0.0-0.5); Bilirubin Total 7.1 mg/dL (0.0-1.0); Blood Urea Nitrogen 7 mg/dL (9-16); Calcium 7.4 mg/dL (8.4-10.2); Creatinine Clr Calc Pharmacy 104.3; Estimated Glomerular Filt Rate > 60; Glucose Random 132 mg/dL (60-115); Total Protein 4.5 g/dL (6.5-8.0)
[2020-02-14 07:55] LABS: Glucose, Whole Blood 110 mg/dL (60-115)
[2020-02-14] MEDS: Lactulose 20 GM/30 ML SOLUTION 15 GM PO ×2 (07:57→15:33)
[2020-02-14] MEDS: rifAXIMin 550 MG TABLET PO ×2 (07:57→20:41)
[2020-02-14] MEDS: 0.9 % Sodium Chloride Flush 3 ML SYRINGE IVFLUSH ×3 (07:57→23:25)
[2020-02-14] MEDS: Spironolactone 25 MG TABLET PO (07:57)
[2020-02-14] MEDS: Torsemide 20 MG TABLET 10 MG PO (07:57)
[2020-02-14] MEDS: risperiDONE 1 MG TABLET PO ×2 (07:58→20:41)
[2020-02-14] MEDS: Gabapentin 300 MG CAPSULE PO ×3 (07:58→20:41)
[2020-02-14] MEDS: Folic Acid 1 MG TABLET PO (07:58)
[2020-02-14 08:02] LABS: Anion Gap 11 (12-20); Carbon Dioxide 27 mmol/L (22-29); Chloride 98 mmol/L (96-108); Potassium 3.7 mmol/l (3.3-5.1); Sodium 132 mmol/L (135-145)
[2020-02-14] MEDS: Fluticasone Propionate 250 MCG BLST.W.DEV 1 PUFF INHALE (08:50)
[2020-02-14] MEDS: oxyCODONE HCl Immed Release 5 MG TABLET PO ×2 (09:45→15:46)
--- NOTE | 2020-02-14 10:47 | P.PNIM_ITS ---
Subjective Subjective Date of Service: 02/14/20 Interval History: abd pain Cardiovascular Cardiovascular: Reports no additional cardiovascular complaints Genitourinary Genitourinary: Reports no additional female genitourinary complaints Physical Exam Vital Signs: Vital Signs: Last Vital Signs Temp 97.6 F 02/14/20 08:41 Pulse 80 02/14/20 09:42 Resp 18 02/14/20 08:41 BP 136/61 02/14/20 09:42 Pulse Ox 96 02/14/20 08:41 Body Mass Index 37.2 General: AO X 3, no acute distress, jaundice Resp: CTA bilateral CVS: S1,S2,RRR, 3+ edema GI: soft, non tender, non distended Neuro: motor grossly intact Psych: appropriate affect Objective Data Current Medications Generic Name Dose Route Start Last Admin Trade Name Freq PRN Reason Stop Dose Admin Albuterol Sulfate 2 puff 02/13/20 20:40 Albuterol Sulfate 90 Mcg 8 Gm Inhaler INHALE Q4H PRN Shortness Of Breath Calcium Carbonate 750 mg 02/13/20 20:40 Calcium Carbonate 750 Mg Tab.Chew PO TID PRN Heartburn Fluticasone Propionate 1 puff 02/14/20 08:00 02/14/20 08:50 Fluticasone Propionate 250 Mcg Blst.W.Dev INHALE 1 puff RBID LILLI Administration Folic Acid 1 mg 02/14/20 09:00 02/14/20 07:58 Folic Acid 1 Mg Tablet PO 1 mg DAILY LILLI Administration Gabapentin 300 mg 02/13/20 21:00 02/14/20 07:58 Gabapentin 300 Mg Capsule PO 300 mg TID LILLI Administration Lactulose 15 gm 02/13/20 21:00 02/14/20 07:57 Lactulose 20 Gm/30 Ml Solution PO 15 gm TID LILLI Administration Melatonin 3 mg 02/13/20 20:40 Melatonin 3 Mg Tablet PO BEDTIME PRN Sleep Omeprazole 20 mg 02/13/20 21:00 02/14/20 06:04 Omeprazole 20 Mg Capsule.Dr PO 20 mg BID@0630,1630 LILLI Administration Rifaximin 550 mg 02/13/20 21:00 02/14/20 07:57 Rifaximin 550 Mg Tablet PO 550 mg BID LILLI Administration Risperidone 1 mg 02/13/20 21:00 02/14/20 07:58 Risperidone 1 Mg Tablet PO 1 mg BID LILLI Administration Sodium Chloride 3 ml 02/14/20 00:00 02/14/20 07:57 0.9 % Sodium Chloride Flush 3 Ml Syringe IVFLUSH 3 ml QSHIFT LILLI Administration Spironolactone 25 mg 02/14/20 09:00 02/14/20 07:57 Spironolactone 25 Mg Tablet PO 25 mg DAILY LILLI Administration Protocol Torsemide 10 mg 02/14/20 09:00 02/14/20 07:57 Torsemide 20 Mg Tablet PO 10 mg DAILY LILLI Administration Protocol Labs CBC & Chem 7: 02/14/20 06:03 02/14/20 06:02 Assessment and Plan (1) Anemia: Status: Acute (2) Diabetes 1.5, managed as type 2: Status: Acute (3) Chronic hyponatremia: Status: Acute (4) Hepatic encephalopathy: Status: Acute (5) Advanced hepatic cirrhosis: Status: Acute Assessment and Plan: 54-year-old female with a history of alcoholic liver cirrhosis s/p TIPS, COPD, bipolar disorder, chronic back pain, diabetes and recent admissions for hepatic encephalopathy and hyponatremia who presented with shortness of breath and [place] found to have anemia, hepatic encephalopathy hepatic encephalopathy some improvement today, mentally clearer, less flapping tremor - continue lactulose goal of 2-4 bm/day shortness of breath fluid overload in setting of cirrhosis, ?hepatopulmonary COVID negative check echo continue diuretics alcoholic liver cirrhosis associated anemia, thrombocytopenia, coagulopathy - continue Aldactone, torsemide, rifaximin anemia of inflammation received 1 unit of blood in the ED - hgb stable chronic hyponatremia Na 131 fluid restriction diabetes A1c 4.1 on recent admit chronic back pain - continue gabapentin
[2020-02-14 11:01] LABS: Glucose, Whole Blood 147 mg/dL (60-115)
--- NOTE | 2020-02-14 16:29 | MHC.CM.PN ---
Addendum entered by Veornica Gutierrez 02/14/20 16:32: PT IS ACTIVE WITH [facility] Original Note: CM ATTEMPTED TO MEET WITH PT WHO IS SLEEPING. OSTEOPATHIC NEUROLOGIST COMPLETED USING EMR AND INFORMATION FROM RECENT ADMISSION. PT LIVES AT HOME WITH HER S/O AND HAS BOTH [employer] AND [facility] SERVICES. PT USES A CANE OR A WALKER DEPENDING ON HOW SHE IS FEELING. PT HAS A HCP AND PCP ON FILE. CURRENT DC PLAN IS HOME WITH RESUMPTION OF SERVICES PT MAY NEED A CHAIR VAN IF SHE IS UNABLE TO SECURE A RIDE
[2020-02-14 17:06] LABS: Glucose, Whole Blood 129 mg/dL (60-115)
[2020-02-14 20:41] LABS: Glucose, Whole Blood 137 mg/dL (60-115)
[2020-02-15] VITALS (11 sets, daily range): BP systolic 110–141; BP diastolic 53–70; PULSE 75–85; RESP 18; TEMP 36.4–37; O2SAT 95–99; BMI 37.2
[2020-02-15] MEDS: Morphine Sulfate 2 MG/ML CARTRIDGE 1 MG IVPUSH (00:15)
[2020-02-15 06:23] LABS: MANUAL DIFF FLAG NO
[2020-02-15 06:45] LABS: Basophils Percent Auto 0.8 % (0-2); Eosinophils Absolute Auto 0.3 X10*3/uL (0.0-0.4); Eosinophils Percent Auto 5.5 % (0-4); Hematocrit 26.8 % (37-47); Hemoglobin 8.6 g/dl (12.0-16.0); Imm Gran Abs Auto 0.05 X10*3/uL (0.00-0.03); Lymphocytes Absolute Auto 0.9 X10*3/uL (1.2-4.9); Lymphocytes Percent Auto 18.9 % (20-40); Mean Corpuscular HGB Conc 32.1 g/dl (31.0-35.0); Mean Corpuscular Hemoglobin 31.5 pg (27.0-33.0); Mean Corpuscular Volume 98.2 fL (80-98); Monocytes Absolute Auto 0.4 X10*3/uL (0.1-1.2); Monocytes Percent Auto 8.8 % (2-11); Neutrophils Absolute Auto 3.2 X10*3/uL (2.0-8.3); Red Blood Count 2.73 X10*6/uL (4.20-5.50); White Blood Count 4.9 X10*3/uL (4.8-10.8)
[2020-02-15 06:53] LABS: Alanine Aminotransferase 17 U/L (0-31); Albumin Level 2.1 g/dL (3.5-5.0); Alkaline Phosphatase 119 U/L (39-117); Anion Gap 8 (12-20); Aspartate Amino Transferase 41 U/L (5-31); Bilirubin Direct 2.2 mg/dL (0.0-0.5); Bilirubin Total 4.3 mg/dL (0.0-1.0); Blood Urea Nitrogen 8 mg/dL (9-16); Calcium 7.8 mg/dL (8.4-10.2); Carbon Dioxide 32 mmol/L (22-29); Chloride 98 mmol/L (96-108); Creatinine Clr Calc Pharmacy 95.5; Estimated Glomerular Filt Rate > 60; Glucose Fasting 99 mg/dL (60-99); Potassium 3.7 mmol/l (3.3-5.1); Sodium 134 mmol/L (135-145); Total Protein 4.9 g/dL (6.5-8.0)
[2020-02-15 06:58] LABS: INTERNATIONAL NORM RATIO 1.6 (0.9-1.1); Prothrombin Time 18.8 SEC (10.8-13.0)
[2020-02-15 07:00] LABS: Platelet Count 77 X10*3/uL (160-400)
[2020-02-15 07:19] LABS: Glucose, Whole Blood 100 mg/dL (60-115)
[2020-02-15] MEDS: Fluticasone Propionate 250 MCG BLST.W.DEV 1 PUFF INHALE ×2 (07:44→20:21)
[2020-02-15] MEDS: Gabapentin 300 MG CAPSULE PO ×3 (08:26→20:31)
[2020-02-15] MEDS: rifAXIMin 550 MG TABLET PO ×2 (08:27→20:31)
[2020-02-15] MEDS: risperiDONE 1 MG TABLET PO ×2 (08:27→20:31)
[2020-02-15] MEDS: 0.9 % Sodium Chloride Flush 3 ML SYRINGE IVFLUSH ×3 (08:27→20:32)
[2020-02-15] MEDS: Folic Acid 1 MG TABLET PO (08:27)
[2020-02-15] MEDS: Spironolactone 25 MG TABLET PO (08:28)
[2020-02-15] MEDS: Torsemide 20 MG TABLET 10 MG PO (08:28)
[2020-02-15] MEDS: Lactulose 20 GM/30 ML SOLUTION 15 GM PO ×3 (09:14→20:30)
[2020-02-15] MEDS: oxyCODONE HCl Immed Release 5 MG TABLET PO ×3 (09:14→20:31)
--- NOTE | 2020-02-15 09:41 | MHC.CM.PN ---
DP Home with resumption of [employer] services and [facility]. WC van will be needed at OR . CM will follow.
[2020-02-15] MEDS: Albuterol Sulfate 90 MCG 8 GM INHALER 2 PUFF INHALE (11:11)
[2020-02-15 11:26] LABS: Glucose, Whole Blood 140 mg/dL (60-115)
--- NOTE | 2020-02-15 12:29 | PC.NURSE ---
THIS AM PATIENT WANTING TO LEAVE DR. VIK BANKS AT BEDSIDE. PATIENT EDUCATED ON SAFETY MEASURES WITH THIS RN AND MD AND PATIENT AGREEABLE TO STAY IN THE HOSPITAL. WILL CONTINUE TO MONITOR AT THIS TIME.
--- NOTE | 2020-02-15 13:54 | P.PNIM_ITS ---
Subjective Subjective Date of Service: 02/15/20 Interval History: seen and examined this AM no new complaints wanted to leave AMA this AM, because we arent doing anything for her d/w the boyfriend on the telephone -- reports that she has been compliant with her meds recently, but doesnt take lactulose all the time ROS General - no fevers or chills Cardiovascular - no chest pain Respiratory - no shortness of breath or cough Abdominal- no abdominal pain, nausea, vomiting, diarrhea Physical Exam Vital Signs: Vital Signs: Last Vital Signs Temp 98.6 F 02/15/20 11:39 Pulse 75 02/15/20 11:39 Resp 18 02/15/20 11:39 BP 140/70 H 02/15/20 11:39 Pulse Ox 98 02/15/20 11:39 Body Mass Index 37.2 General - no acute distress, appears comfortable Cardiovascular - regular rate and rhythm, S1-S2 Lungs - normal respiratory effort, clear to auscultation bilaterally, no wheezing Abdomen - soft, nontender, no rebound or guarding Extremities - significant edema bilaterally Neuro - awake and alert, no focal deficits Objective Data Current Medications Generic Name Dose Route Start Last Admin Trade Name Freq PRN Reason Stop Dose Admin Albuterol Sulfate 2 puff 02/13/20 20:40 02/15/20 11:11 Albuterol Sulfate 90 Mcg 8 Gm Inhaler INHALE 2 puff Q4H PRN Administration Shortness Of Breath Calcium Carbonate 750 mg 02/13/20 20:40 Calcium Carbonate 750 Mg Tab.Chew PO TID PRN Heartburn Fluticasone Propionate 1 puff 02/14/20 08:00 02/15/20 07:44 Fluticasone Propionate 250 Mcg Blst.W.Dev INHALE 1 puff RBID LILLI Administration Folic Acid 1 mg 02/14/20 09:00 02/15/20 08:27 Folic Acid 1 Mg Tablet PO 1 mg DAILY LILLI Administration Gabapentin 300 mg 02/13/20 21:00 02/15/20 08:26 Gabapentin 300 Mg Capsule PO 300 mg TID LILLI Administration Lactulose 15 gm 02/13/20 21:00 02/15/20 09:14 Lactulose 20 Gm/30 Ml Solution PO 15 gm TID LILLI Administration Melatonin 3 mg 02/13/20 20:40 Melatonin 3 Mg Tablet PO BEDTIME PRN Sleep Omeprazole 20 mg 02/13/20 21:00 02/15/20 06:14 Omeprazole 20 Mg Capsule. PO Not Given BID@0607,8850 [facility] Oxycodone HCl 5 mg 02/15/20 08:40 02/15/20 09:14 Oxycodone Hcl Immed Release 5 Mg Tablet PO 5 mg Q6H PRN Administration Pain, Severe (Pain Scale 7-10) Rifaximin 550 mg 02/13/20 21:00 02/15/20 08:27 Rifaximin 550 Mg Tablet PO 550 mg BID LILLI Administration Risperidone 1 mg 02/13/20 21:00 02/15/20 08:27 Risperidone 1 Mg Tablet PO 1 mg BID LILLI Administration Sodium Chloride 3 ml 02/14/20 00:00 02/15/20 08:27 0.9 % Sodium Chloride Flush 3 Ml Syringe IVFLUSH 3 ml QSHIFT LILLI Administration Spironolactone 25 mg 02/14/20 09:00 02/15/20 08:28 Spironolactone 25 Mg Tablet PO 25 mg DAILY LILLI Administration Protocol Torsemide 10 mg 02/14/20 09:00 02/15/20 08:28 Torsemide 20 Mg Tablet PO 10 mg DAILY LILLI Administration Protocol Labs CBC & Chem 7: 02/15/20 05:24 02/15/20 05:24 Assessment and Plan (1) Advanced hepatic cirrhosis: Status: Acute Assessment and Plan: This is a 55 yo F who is admitted for: 1. Hepatic Encephalopathy unclear how complaint the patient has been with this. she has been treated with the same dose of her lactulose here that she was at home and her enceophalopathy is resolved continue the same dose -- goal 3-4 soft BM's daily continue rifaximin 2. Cirrhosis/fluid overload continue diuretics at their current dose echo showing normal LVEF and normal diastolic function 3. Anemia, chronic stable s/p 1 unit probc 4. chronic hypoNa stable, monitor 5. DM a1c 4.1 Full Code DVT pptx, mechanical due to significant anemia / thrombocytoepnia
[2020-02-15] MEDS: Omeprazole 20 MG CAPSULE.DR PO (15:24)
[2020-02-15 16:39] LABS: Glucose, Whole Blood 157 mg/dL (60-115)
--- NOTE | 2020-02-15 17:58 | CA_ITS ---
Transthoracic Echocardiogram Patient (Last, First, Middle): Madisyn Nicole, Gender: Female Date of : 1965 Age: 55 Procedure Date: 02/15/2020 Procedure Type: Transthoracic Echocardiogram Location: [facility] [place] Height: 157.48 cm Weight: 92.08 kg BSA: 1.92 m2 Heart Rate: bpm BP: 125 / 58 mmHg Orthopedic Tech: GONZALES Peña MD: Natalya VALERO Mask Design Engineer: Rakesh Waggoner MD Symptoms: fluid overload Study Quality: Fair ECG Rhythm: Sinus Conclusions: - Essentially normal study Findings Left Ventricle Normal left ventricular size, thickness, and systolic function. The visually estimated ejection fraction is between 60-65%. Diastolic function is normal for age. Right Ventricle Normal right ventricular cavity size and systolic function. Atria Both atria are normal in size. Interatrial shunt cannot be excluded. Aortic Valve Normal aortic valve structure and function. There is no aortic valve stenosis. There is no aortic valve regurgitation. Mitral Valve Normal mitral valve structure and function. There is trace mitral valve regurgitation. There is no mitral valve stenosis. Pulmonic Valve The pulmonic valve was not well visualized. Tricuspid Valve Likely normal tricuspid valve structure and function. There is mild tricuspid valve regurgitation. The right ventricular systolic pressure is normal. There is no evidence of pulmonary hypertension. Great Vessels All visible segments of the aorta are normal in size. The pulmonary artery was not well visualized. Venous The inferior vena cava is normal in size and collapses greater than 50% with inspiration. Pericardium/Pleural There is no evidence of pericardial effusion. Prior Study Comparison No prior study available for comparison. Measurements 2D Linear Measurements RVIDd: 3.69 RVIDd Index: 1.92 IVSd: 0.85 0.6-0.9/0.6-1.0 cm LVIDd: 5.12 3.9-5.3/4.2-5.9 cm LVIDd Index: 2.67 2.4-3.2/2.2-3.1 cm/m2 LVIDs: 3.01 2.0-3.6 cm LVPWd: 0.97 0.7-1.1 cm Ao Root: 2.50 2.1-3.5 cm LA Diam: 4.10 2.7-3.8/3.0-4.0 cm LAIDs Index: 2.14 1.5-2.3 cm/m2 LV Mass: 207.59 67-162/88-224 g LV Mass Index: 108.12 43-95/49-115 g/m2 LVOT Diam: 2.00 3.0+(-)1.3 cm 2D Systolic Function EF 4C: 61.90 >55% EF 2C: 65.10 >55% EF BiP: 63.20 >55% Mitral Valve MV Pk E: 1.29 MV PK A: 0.99 MV Decel Time: 230.00 E/A: 1.30 E'Lateral: 9.57 E'Medial: 7.83 E/E' Med: 16.50 E/E' Lat: 13.50 Aortic Valve AoV Pk [place]: 1.79 AoV Mn [place]: 1.44 AoV VTI: 0.46 AoV Pk Grad: 13.00 Aov Mn Grad: 9.00 ASHLEY Cont.VTI: 2.28 LVOT LVOT Pk [place]: 1.59 LVOT Mn [place]: 1.03 LVOT VTI: 0.34 LVOT Pk Grad: 10.00 LVOT Mn Grad: 5.00 LVOT Diam: 2.00 LVOT Area: 3.14 Diastolic Function MV Pk E: 1.29 MV Pk A: 0.99 E/A: 1.30 E'Medial: 7.83 E/E' Med: 16.50 E' Laterial: 9.57 E/E' Lat: 13.50 Tricuspid Valve TR Pk [place]: 2.81 TR Pk Grad: 32.00 RA Press: 3.00 RVSP: 35.00 Great Vessels Aorta Ao Root-2D: 2.50 2.0-3.7 cm Ao Asc: 2.60 2.1-3.4 cm Ao Arch: 3.00 Updated in Other Vendor System with Status of Final Rakesh Waggoner MD electronically signed on 02/15/2020 11:45:21 AM with status of Final
[2020-02-15] MEDS: Melatonin 3 MG TABLET PO (20:31)
[2020-02-15 21:14] LABS: Glucose, Whole Blood 133 mg/dL (60-115)
[2020-02-16 03:50] VITALS: BP 140/61; PULSE 84; RESP 19; TEMP 36.9; O2SAT 97
[2020-02-16] MEDS: oxyCODONE HCl Immed Release 5 MG TABLET PO ×2 (04:10→10:24)
[2020-02-16] MEDS: Omeprazole 20 MG CAPSULE.DR PO (05:49)
[2020-02-16] MEDS: Fluticasone Propionate 250 MCG BLST.W.DEV 1 PUFF INHALE (07:26)
[2020-02-16 07:44] VITALS: BP 122/62; PULSE 75; RESP 19; TEMP 36.6; O2SAT 99
[2020-02-16 07:50] LABS: Glucose, Whole Blood 108 mg/dL (60-115)
[2020-02-16] MEDS: rifAXIMin 550 MG TABLET PO (07:58)
[2020-02-16] MEDS: Gabapentin 300 MG CAPSULE PO (07:58)
[2020-02-16] MEDS: Torsemide 20 MG TABLET 10 MG PO (07:58)
[2020-02-16] MEDS: risperiDONE 1 MG TABLET PO (07:58)
[2020-02-16] MEDS: 0.9 % Sodium Chloride Flush 3 ML SYRINGE IVFLUSH (07:58)
[2020-02-16 07:59] VITALS: BP 122/62; PULSE 75
[2020-02-16] MEDS: Spironolactone 25 MG TABLET PO (07:59)
[2020-02-16] MEDS: Folic Acid 1 MG TABLET PO (07:59)
[2020-02-16] MEDS: Lactulose 20 GM/30 ML SOLUTION 15 GM PO (08:00)
--- NOTE | 2020-02-16 09:34 | PM.DS ---
DS: Providers Provider Date of admission: 02/13/20 16:31 Primary care physician: Nuvia Bagley NP DS: Diagnosis Discharge Diagnosis (1) Advanced hepatic cirrhosis: Status: Acute (2) Hepatic encephalopathy: Status: Acute DS: Medications Discharge Medications Home Medications: Home Medications Medication Instructions Recorded Confirmed Xifaxan 550 mg PO BID 01/20/20 02/13/20 folic acid 1 mg PO DAILY 01/20/20 02/13/20 hydroxyzine pamoate 25 mg PO TID PRN 01/20/20 02/13/20 lactulose 15 g PO TID 01/20/20 02/13/20 magnesium oxide 400 mg PO BID 01/20/20 02/13/20 melatonin 3 mg PO BEDTIME PRN 01/20/20 02/13/20 omeprazole 20 mg PO BID 01/20/20 02/13/20 potassium chloride 20 meq PO BID 01/20/20 02/13/20 risperidone 1 mg PO BID 01/20/20 02/13/20 Flovent HFA 1 puff INHALATION BID 02/09/20 02/13/20 albuterol sulfate 2 puff INHALATION Q4H PRN 02/09/20 02/13/20 calcium carbonate [Antacid Ext Str 1 tab PO TID PRN 02/09/20 02/13/20 (calcium carb)] thiamine HCl (vitamin B1) 1 tab PO DAILY 02/09/20 02/13/20 baclofen 10 mg PO DAILY 02/13/20 02/14/20 Previous Rx's Medication Instructions Recorded gabapentin 300 mg PO TID #90 cap 01/26/20 spironolactone 25 mg PO DAILY #30 tab 01/28/20 torsemide 10 mg PO DAILY 30 Days #15 tab 01/28/20 DS: Summary Hospital Course Hospital Course: HPI: this is a 55-year-old female with a history of alcoholic liver cirrhosis presents to the emergency department with complaints shortness of breath and weakness. She was recently admitted under similar circumstances but wanted to be discharged on 02/10 as it was her birthday. She reports abdominal distension, shortness of breath beginning yesterday as well as increasing leg edema. Lab work was significant for anemia with an H/ H is 7.0/21.8 which is slightly below her baseline. In addition her ammonia level is elevated 86 and she had associated asterixis. The remainder of her labs were at her baseline. a unit of blood was ordered in the emergency department as well as lactulose and Lasix and admission was requested for further management. Hospital Course: Patient was treated for her Hepatic encephalopathy with her home dose of lactulose and rifaximin. With these measure, her confusion resolved and she returned to her baseline. In regards to her swelling / sob -- she was given IV diuresis in the ED and transitioned to her oral diuretics, again at baseline dose. She was evaluated with an echocardiogram which showed normal LVEF and distolic function. She was noted to also have a h/h which was slightly below her baseline. She was transfused 1 unit prbc and h/h remained stable. There was no evidence of sánchez blood loss. Most likely cause of her encephalopathy was secondary to non-compliance (as reported by her partner, Jose Rafael). She will be discharged home to continue her routine care and to follow up with her PCP / GI doctors in the next week or two. Time Spent with Patient Time attestation: Total time spent providing and/or coordinating discharge services: Physical Exam Vital Signs: Vital Signs: Last Vital Signs Temp 97.9 F 02/16/20 07:44 Pulse 75 02/16/20 07:59 Resp 19 02/16/20 07:44 BP 122/62 02/16/20 07:59 Pulse Ox 99 02/16/20 07:44 Body Mass Index 37.2 General - no acute distress, appears comfortable Cardiovascular - regular rate and rhythm, S1-S2 Lungs - normal respiratory effort, clear to auscultation bilaterally, no wheezing Abdomen - soft, nontender, no rebound or guarding Extremities - bilateral LE swelling Neuro - awake and alert, no focal deficits DS: Data Data Completed and Pending Completed studies during hospitalization [Text1]: Procedures Transfusion of Nonautologous Red Blood Cells into Peripheral Vein, Percutaneous Approach (01/20/20) Labs on day of discharge: Laboratory Last Values WBC 4.9 X10*3/uL (4.8-10.8) 02/15/20 05:24 RBC 2.73 X10*6/uL (4.20-5.50) L 02/15/20 05:24 Hgb 8.6 g/dl (12.0-16.0) L 02/15/20 05:24 Hct 26.8 % (37-47) L 02/15/20 05:24 MCV 98.2 fL (80-98) H 02/15/20 05:24 MCH 31.5 pg (27.0-33.0) 02/15/20 05:24 MCHC 32.1 g/dl (31.0-35.0) 02/15/20 05:24 RDW 20.0 % (11.0-16.0) H 02/15/20 05:24 Plt Count 77 X10*3/uL (160-400) L 02/15/20 05:24 MPV 11.0 fL (9.4-12.3) 02/15/20 05:24 Immature Gran % (Auto) 1.0 % (0.0-0.4) H 02/15/20 05:24 Neut % (Auto) 65.0 % (45-73) 02/15/20 05:24 Lymph % (Auto) 18.9 % (20-40) L 02/15/20 05:24 Greer % (Auto) 8.8 % (2-11) 02/15/20 05:24 Eos % (Auto) 5.5 % (0-4) H 02/15/20 05:24 Baso % (Auto) 0.8 % (0-2) 02/15/20 05:24 Lymph # (Auto) 0.9 X10*3/uL (1.2-4.9) L 02/15/20 05:24 Greer # (Auto) 0.4 X10*3/uL (0.1-1.2) 02/15/20 05:24 Eos # (Auto) 0.3 X10*3/uL (0.0-0.4) 02/15/20 05:24 Baso # (Auto) 0.0 X10*3/uL (0.0-0.2) 02/15/20 05:24 Abs Immat Gran (auto) 0.05 X10*3/uL (0.00-0.03) H 02/15/20 05:24 Absolute Neuts (auto) 3.2 X10*3/uL (2.0-8.3) 02/15/20 05:24 Absolute Nucleated RBC 0.000 X10*3/uL (0.0-0.012) 02/15/20 05:24 Nucleated RBC % (auto) 0.0 /100WBC (0.0-0.2) 02/15/20 05:24 PT 18.8 SEC (10.8-13.0) H 02/15/20 05:24 INR 1.6 (0.9-1.1) H 02/15/20 05:24 APTT 45.7 SEC (24.1-38.0) H 02/13/20 14:33 Sodium 134 mmol/L (135-145) L 02/15/20 05:24 Potassium 3.7 mmol/l (3.3-5.1) 02/15/20 05:24 Chloride 98 mmol/L (96-108) 02/15/20 05:24 Carbon Dioxide 32 mmol/L (22-29) H 02/15/20 05:24 Anion Gap 8 (12-20) L 02/15/20 05:24 BUN 8 mg/dL (9-16) L 02/15/20 05:24 Creatinine 0.72 mg/dL (0.5-1.4) 02/15/20 05:24 Estim Creat Clear Calc 95.5 02/15/20 05:24 Estimated GFR > 60 02/15/20 05:24 POC Glucose 108 mg/dL (60-115) 02/16/20 07:46 Random Glucose 132 mg/dL (60-115) H D 02/14/20 06:02 Fasting Glucose 99 mg/dL (60-99) 02/15/20 05:24 Calcium 7.8 mg/dL (8.4-10.2) L 02/15/20 05:24 Total Bilirubin 4.3 mg/dL (0.0-1.0) H 02/15/20 05:24 Direct Bilirubin 2.2 mg/dL (0.0-0.5) H 02/15/20 05:24 AST 41 U/L (5-31) H 02/15/20 05:24 ALT 17 U/L (0-31) 02/15/20 05:24 Alkaline Phosphatase 119 U/L (39-117) H 02/15/20 05:24 Ammonia 145 umol/L (13-55) H 02/14/20 06:02 Total Protein 4.9 g/dL (6.5-8.0) L 02/15/20 05:24 Albumin 2.1 g/dL (3.5-5.0) L 02/15/20 05:24 Lipase 40 U/L (8-78) 02/13/20 14:33 Stool Occult Blood POS (NEG) 02/13/20 16:26 COVID-19 (GIOVANI) Negative (Negative) 02/13/20 16:28 COVID-19 Clin Com See Note 02/13/20 16:28 Blood Type A Negative 02/13/20 16:28 Antibody Screen NEGATIVE 02/13/20 16:28 Crossmatch See Detail 02/13/20 16:28 Discharge Plan Discharge Patient Disposition: Home Health Service Referrals: Nuvia Bagley, TERRIT[employer] SALES MANAGER [Primary Care Provider] - 1 Week (Nurse will call you to follow up.) Discharge Medications: Continued potassium chloride 20 mEq tablet,ER particles/crystals 20 meq PO BID RF: 0 magnesium oxide 400 mg (241.3 mg magnesium) tablet 400 mg PO BID RF: 0 folic acid 1 mg tablet 1 mg PO DAILY RF: 0 hydroxyzine pamoate 25 mg capsule 25 mg PO TID PRN (Reason: Anxiety) RF: 0 Xifaxan 550 mg tablet 550 mg PO BID RF: 0 melatonin 3 mg Tablet 3 mg PO BEDTIME PRN (Reason: Sleep) RF: 0 omeprazole 20 mg Capsule,Delayed Release(Dr/Ec) 20 mg PO BID RF: 0 lactulose 10 gram/15 mL (15 mL) Solution 15 g PO TID RF: 0 risperidone 1 mg tablet 1 mg PO BID RF: 0 gabapentin 300 mg capsule 300 mg PO TID Qty: 90 RF: 0 spironolactone 25 mg Tablet 25 mg PO DAILY Qty: 30 RF: 0 torsemide 20 mg Tablet 10 mg PO DAILY 30 Days Qty: 15 RF: 0 thiamine HCl (vitamin B1) 100 mg tablet 1 tab PO DAILY RF: 0 calcium carbonate [Antacid Ext Str (calcium carb)] 300 mg (750 mg) tablet,chewable 1 tab PO TID PRN (Reason: Heartburn) RF: 0 Flovent HFA 220 mcg/actuation HFA aerosol inhaler 1 puff inhalation BID RF: 0 albuterol sulfate 90 mcg/actuation HFA aerosol inhaler 2 puff inhalation Q4H PRN (Reason: Shortness Of Breath) RF: 0 baclofen 10 mg tablet 10 mg PO DAILY RF: 0 Discharge Orders: Discharge Order (Routine); Ordered 02/16/20 Ordered By: Chilo Garza Diet: advance to usual diet and low salt diet Activity on Discharge: As tolerated Visit Report Forms: Patient Portal Discharge page Care Plan Goals: To stay healthy and out of the hospital. Health Concerns: Hepatic Encephalopathy Cirrhosis Plan of Treatment: Hepatic Encephalopathy - take Lactulose and Rifaximin Cirrhosis - Take your liver medications and follow up with your stomach doctors.
[2020-02-16 11:50] LABS: Glucose, Whole Blood 121 mg/dL (60-115)
== END 2020-02-16 13:09 | disposition home health service (06) | DRG 433 ==
LOC: HO.ED 16:20 → HO.IMC 17:16
PROVIDERS: Physician Assistant Medical; Admitting Provider Internal Medicine; Emergency Provider Internal Medicine; PCP Nurse Practitioner; Visit Provider Family Medicine
DX: K70.31 Alcoholic cirrhosis of liver with ascites (principal); E87.1 Hypo-osmolality and hyponatremia; D68.9 Coagulation defect, unspecified; D50.0 Iron deficiency anemia secondary to blood loss (chronic); F32.9 Major depressive disorder, single episode, unspecified; F43.10 Post-traumatic stress disorder, unspecified; E11.9 Type 2 diabetes mellitus without complications; K72.90 Hepatic failure, unspecified without coma; G89.29 Other chronic pain; Z20.828 Contact with and (suspected) exposure to other viral communicable diseases; F17.210 Nicotine dependence, cigarettes, uncomplicated; Z71.6 Tobacco abuse counseling; Z88.0 Allergy status to penicillin; Z88.2 Allergy status to sulfonamides; Z79.899 Other long term (current) drug therapy
CPT/HCPCS: 36415; 71045; 74176; 80048; 80053; 80076; 82140; 82272; 82947; 83690; 85025; 85610; 85730; 86850; 86900; 86901; 86920; 86923; 87635; 93306; 96365; 96375; 99285; J1940; J2270; J2405; J3430; P9016

== ENCOUNTER 2020-02-19 12:51 | Inpatient (IN) | payer OTHER, SELFPAY ==
[2020-02-19] VITALS (7 sets, daily range): BP systolic 112–140; BP diastolic 44–100; PULSE 76–99; RESP 10–22; TEMP 36.4–37.9; O2SAT 93–98; BMI 38.8
--- NOTE | 2020-02-19 13:15 | ED_ITS ---
HPI - General Adult General Chief complaint: Abdominal Pain Stated complaint: diff ambulating/swelling Time Seen by Provider: 02/19/20 13:15 Source: patient Mode of arrival: EMS Limitations: altered mental status History of Present Illness HPI narrative: Patient with increased weakness and shortness of breath. Patient has significant other that is out of the house. Patient with a history of asthma and COPD. Last steroids was three weeks ago Onset (ago): day(s) Severity: moderate Associated symptoms: shortness of breath Related Data Home Medications Medication Instructions Recorded Confirmed Xifaxan 550 mg PO BID 01/20/20 02/13/20 folic acid 1 mg PO DAILY 01/20/20 02/13/20 hydroxyzine pamoate 25 mg PO TID PRN 01/20/20 02/13/20 lactulose 15 g PO TID 01/20/20 02/13/20 magnesium oxide 400 mg PO BID 01/20/20 02/13/20 melatonin 3 mg PO BEDTIME PRN 01/20/20 02/13/20 omeprazole 20 mg PO BID 01/20/20 02/13/20 potassium chloride 20 meq PO BID 01/20/20 02/13/20 risperidone 1 mg PO BID 01/20/20 02/13/20 Flovent HFA 1 puff INHALATION BID 02/09/20 02/13/20 albuterol sulfate 2 puff INHALATION Q4H PRN 02/09/20 02/13/20 calcium carbonate [Antacid Ext Str 1 tab PO TID PRN 02/09/20 02/13/20 (calcium carb)] thiamine HCl (vitamin B1) 1 tab PO DAILY 02/09/20 02/13/20 baclofen 10 mg PO DAILY 02/13/20 02/14/20 Previous Rx's Medication Instructions Recorded gabapentin 300 mg PO TID #90 cap 01/26/20 spironolactone 25 mg PO DAILY #30 tab 01/28/20 torsemide 10 mg PO DAILY 30 Days #15 tab 01/28/20 Allergies Allergy/AdvReac Type Severity Reaction Status Date / Time lamotrigine [From LAMICTAL] Allergy Intermediate RASH Verified 01/20/20 00:45 amoxicillin [AMOXICILLIN] Allergy Unknown NAUSEA & Verified 01/20/20 00:45 VOMITING Iodinated Contrast Media Allergy Unknown ANAPHYLAXIS Verified 01/20/20 00:45 [CONTRAST, IV] Sulfa (Sulfonamide Allergy Unknown UNKNOWN Verified 01/20/20 00:45 Antibiotics) [SULFA (SULFONAMIDE ANTIBIOTICS)] sulfamethoxazole Allergy Unknown UNK Verified 01/20/20 00:45 [From BACTRIM] trimethoprim [From BACTRIM] Allergy Unknown UNK Verified 01/20/20 00:45 Review of Systems Constitutional: Constitutional: Reports no additional constitutional complaints Eyes: Eyes: Reports no additional eye complaints ENT: Denies dizziness Cardiovascular: Cardiovascular: Reports no additional cardiovascular complaints Respiratory: Respiratory: Reports as per HPI Gastrointestinal: Gastrointestinal: Reports no additional gastrointestinal complaints Genitourinary: Genitourinary: Reports no additional female genitourinary complaints Musculoskeletal: Musculoskeletal: Reports no additional musculoskeletal complaints Integumentary/Breasts: Skin/Breast: Denies rash Neurologic: Reports system reviewed and no additional complaints, except as documented, Denies dizziness and Denies Sensory deficit (Neuro) Psychiatric: Psychiatric: Denies anxiety PMFSH Past Medical History Medical History Anemia Anemia Anxiety Chronic back pain Chronic hyponatremia Cirrhosis Coagulopathy Congestive heart failure COPD (chronic obstructive pulmonary disease) Depression Diabetes 1.5, managed as type 2 Hyponatremia Liver disease Pneumonia PTSD (post-traumatic stress disorder) Thrombocytopenia Surgical History History of cholecystectomy Previous back surgery S/P TIPS (transjugular intrahepatic portosystemic shunt) Family History Family History Other HTN (hypertension) Social History Social History Household Members: Significant Other Housing: Apartment Alcohol intake: former Smoking Status: Current every day smoker Tobacco Type: Cigarette Packs Per Day: 0.5 Cigarettes Per Day: 10.0 Smoked in Last 30 Days: No Second Hand Smoke Exposure: No Use of substances other than those prescribed or required for medical reasons: No Substance Use Type: Marijuana Advance Directives: No Advance Directives Information Provided: No service: No Current occupational status: unemployed Physical Exam Vital Signs: Vital Signs: Last Vital Signs Temp 100.1 F 02/19/20 13:27 Pulse 97 02/19/20 14:30 Resp 17 02/19/20 14:30 BP 125/44 L 02/19/20 14:30 Pulse Ox 98 02/19/20 14:30 Body Mass Index 38.8 Const: Other: chronically ill appearing cirrhotic Nutritional Appearance: obese Orientation/consciousness: oriented to person and patient oriented x3 Limitations: no limitations HENMT: Other: very dry oral mucosa Head: Yes normal to inspection Ears: external ears normal General nose exam: Normal external nose present Mouth: oropharynx normal Throat: Yes posterior oropharynx normal Eyes: General: appearance normal, both eyes and all related structures Neck: Other: supple Neck: Yes normal visual inspection Chest: Chest palpation & inspection: normal inspection of the chest Resp: Other: diffuse wheezing Cardio: Jugular venous distension: no JVD Rate: regular rate Rhythm: regular rhythm Heart sounds: S1 normal heart sound present and S2 normal heart sound present GI: Inspection: Yes normal to inspection Palpation (GI): Soft to palpation, nontender and No hepatosplenomegaly present Auscultation: normal bowel sounds : General: Yes no CVA tenderness Back/Spine/Pelvis: Back: no CVA tenderness Skin: General skin exam: no rashes or lesions noted Neuro: General: oriented to person and patient oriented x3 Cranial nerves: Yes CN's II-XII intact bilaterally Motor exam (neuro): 5/5 motor strength present throughout Sensory Exam: No Sensory deficit (Neuro) Extrem: Other: 3+ edema bilaterally Psych: Appearance: grossly normal Course Course Course Narrative: will give fluids and abx Medical Decision Making [facility] Narrative Medical decision making narrative: patient with cirrhosis and pneumonia, lactic acid 2.3, will admit for pneumonia Lab Data Result diagrams: 02/19/20 13:43 02/19/20 13:43 Labs: Lab Results 02/19/20 02/19/20 02/19/20 Range/Units 13:43 13:43 13:43 WBC 13.3 H (4.8-10.8) X10*3/uL RBC 2.92 L (4.20-5.50) X10*6/uL Hgb 9.3 L (12.0-16.0) g/dl Hct 29.0 L (37-47) % MCV 99.3 H (80-98) fL MCH 31.8 (27.0-33.0) pg MCHC 32.1 (31.0-35.0) g/dl RDW 18.8 H (11.0-16.0) % Plt Count 78 L (160-400) X10*3/uL MPV 11.5 (9.4-12.3) fL Immature Gran % (Auto) 1.2 H (0.0-0.4) % Neut % (Auto) 81.5 H (45-73) % Lymph % (Auto) 5.9 L (20-40) % [place] % (Auto) 9.2 (2-11) % Eos % (Auto) 1.8 (0-4) % Baso % (Auto) 0.4 (0-2) % Lymph # (Auto) 0.8 L (1.2-4.9) X10*3/uL [place] # (Auto) 1.2 (0.1-1.2) X10*3/uL Eos # (Auto) 0.2 (0.0-0.4) X10*3/uL Baso # (Auto) 0.1 (0.0-0.2) X10*3/uL Abs Immat Gran (auto) 0.16 H (0.00-0.03) X10*3/uL Absolute Neuts (auto) 10.8 H (2.0-8.3) X10*3/uL Absolute Nucleated RBC 0.000 (0.0-0.012) X10*3/uL Nucleated RBC % (auto) 0.0 (0.0-0.2) /100WBC PT 22.6 H D (10.8-13.0) SEC INR 1.9 H (0.9-1.1) APTT 48.2 H (24.1-38.0) SEC Sodium 133 L (135-145) mmol/L Potassium 4.5 D (3.3-5.1) mmol/l Chloride 99 (96-108) mmol/L Carbon Dioxide 27 (22-29) mmol/L Anion Gap 12 (12-20) BUN 8 L (9-16) mg/dL Creatinine 0.75 (0.5-1.4) mg/dL Estim Creat Clear Calc 93.8 Estimated GFR > 60 Random Glucose 127 H (60-115) mg/dL Lactic Acid (0.5-2.0) mmol/L Calcium 8.1 L (8.4-10.2) mg/dL Total Bilirubin 5.4 H (0.0-1.0) mg/dL Direct Bilirubin 2.3 H (0.0-0.5) mg/dL AST 45 H (5-31) U/L ALT 17 (0-31) U/L Alkaline Phosphatase 123 H (39-117) U/L Total Protein 5.2 L (6.5-8.0) g/dL Albumin 2.3 L (3.5-5.0) g/dL Coronavirus (PCR) (Negative) Influenza Type A (PCR) (Negative) Influenza Type B (PCR) (Negative) RSV RNA Qual (PCR) (Negative) 02/19/20 02/19/20 Range/Units 13:43 13:46 WBC (4.8-10.8) X10*3/uL RBC (4.20-5.50) X10*6/uL Hgb (12.0-16.0) g/dl Hct (37-47) % MCV (80-98) fL MCH (27.0-33.0) pg MCHC (31.0-35.0) g/dl RDW (11.0-16.0) % Plt Count (160-400) X10*3/uL MPV (9.4-12.3) fL Immature Gran % (Auto) (0.0-0.4) % Neut % (Auto) (45-73) % Lymph % (Auto) (20-40) % [place] % (Auto) (2-11) % Eos % (Auto) (0-4) % Baso % (Auto) (0-2) % Lymph # (Auto) (1.2-4.9) X10*3/uL [place] # (Auto) (0.1-1.2) X10*3/uL Eos # (Auto) (0.0-0.4) X10*3/uL Baso # (Auto) (0.0-0.2) X10*3/uL Abs Immat Gran (auto) (0.00-0.03) X10*3/uL Absolute Neuts (auto) (2.0-8.3) X10*3/uL Absolute Nucleated RBC (0.0-0.012) X10*3/uL Nucleated RBC % (auto) (0.0-0.2) /100WBC PT (10.8-13.0) SEC INR (0.9-1.1) APTT (24.1-38.0) SEC Sodium (135-145) mmol/L Potassium (3.3-5.1) mmol/l Chloride (96-108) mmol/L Carbon Dioxide (22-29) mmol/L Anion Gap (12-20) BUN (9-16) mg/dL Creatinine (0.5-1.4) mg/dL Estim Creat Clear Calc Estimated GFR Random Glucose (60-115) mg/dL Lactic Acid 2.2 H* (0.5-2.0) mmol/L Calcium (8.4-10.2) mg/dL Total Bilirubin (0.0-1.0) mg/dL Direct Bilirubin (0.0-0.5) mg/dL AST (5-31) U/L ALT (0-31) U/L Alkaline Phosphatase (39-117) U/L Total Protein (6.5-8.0) g/dL Albumin (3.5-5.0) g/dL Coronavirus (PCR) NEGATIVE (Negative) Influenza Type A (PCR) NEGATIVE (Negative) Influenza Type B (PCR) NEGATIVE (Negative) RSV RNA Qual (PCR) NEGATIVE (Negative) Imaging Data Chest x-ray: Radiologist's impression: Left sided infiltrate Critical Care Time Critical Care Time Critical Care Time: Yes Total Critical Care Time: 35 Attestation: I spent 35 minutes of critical care, with interventions, assessments, speaking to patient, consultants, and family. Discharge Plan Discharge Clinical Impression: Pneumonia Qualifiers: Pneumonia type: due to unspecified organism Laterality: left Lung location: upper lobe of lung Qualified Code(s): J18.9 - Pneumonia, unspecified organism Chronic liver failure Qualifiers: Hepatic coma status: without hepatic coma Qualified Code(s): K72.10 - Chronic hepatic failure without coma Patient Disposition: Admitted As Inpatient
--- NOTE | 2020-02-19 13:26 | XR_ITS ---
EXAMINATION: XR CHEST CLINICAL INFORMATION: Shortness of breath COMPARISON: Chest radiographs 02/13/2020, 02/09/2020 TECHNIQUE: Portable upright AP view of the chest was obtained. FINDINGS: There is left perihilar airspace consolidation with some fine air bronchograms. Findings consistent with pneumonia in the appropriate clinical setting. The remainder of the lungs are clear. The costophrenic sulci are well-defined. There is no effusion. Heart is within limits of normal size for portable AP view. Vascularity normal. The bony structures are unremarkable. XR/XR chest 1V IMPRESSION: Left perihilar airspace consolidation, consistent with pneumonia in the appropriate clinical setting. No effusion.
[2020-02-19 13:52] LABS: MANUAL DIFF FLAG NO
[2020-02-19 13:53] LABS: Basophils Absolute Auto 0.1 X10*3/uL (0.0-0.2); Basophils Percent Auto 0.4 % (0-2); Eosinophils Absolute Auto 0.2 X10*3/uL (0.0-0.4); Eosinophils Percent Auto 1.8 % (0-4); Hemoglobin 9.3 g/dl (12.0-16.0); Imm Gran Abs Auto 0.16 X10*3/uL (0.00-0.03); Imm Gran Pct Auto 1.2 % (0.0-0.4); Lymphocytes Absolute Auto 0.8 X10*3/uL (1.2-4.9); Lymphocytes Percent Auto 5.9 % (20-40); Mean Corpuscular HGB Conc 32.1 g/dl (31.0-35.0); Mean Corpuscular Hemoglobin 31.8 pg (27.0-33.0); Mean Corpuscular Volume 99.3 fL (80-98); Mean Platelet Volume 11.5 fL (9.4-12.3); Monocytes Absolute Auto 1.2 X10*3/uL (0.1-1.2); Monocytes Percent Auto 9.2 % (2-11); Neutrophils Absolute Auto 10.8 X10*3/uL (2.0-8.3); Neutrophils Percent Auto 81.5 % (45-73); Red Blood Count 2.92 X10*6/uL (4.20-5.50); Red Cell Distribution Width 18.8 % (11.0-16.0); White Blood Count 13.3 X10*3/uL (4.8-10.8)
[2020-02-19] MEDS: methylPREDNISolone Sod Succ/PF 125 MG/2 ML VIAL IVPUSH (13:54)
[2020-02-19] MEDS: 0.9 % Sodium Chloride 1,000 ML 999 ML IVCONT (13:55)
[2020-02-19 13:56] LABS: Platelet Count 78 X10*3/uL (160-400)
[2020-02-19 14:08] LABS: INTERNATIONAL NORM RATIO 1.9 (0.9-1.1); Prothrombin Time 22.6 SEC (10.8-13.0)
[2020-02-19] MEDS: Albuterol Sulfate 90 MCG 8 GM INHALER 4 PUFF INHALE (14:09)
[2020-02-19] MEDS: Ipratropium Bromide 1 PUFF/17 MCG INHALER 2 PUFF INHALE (14:09)
[2020-02-19 14:11] LABS: Partial Thromboplastin Time 48.2 SEC (24.1-38.0)
[2020-02-19 14:15] LABS: Alanine Aminotransferase 17 U/L (0-31); Albumin Level 2.3 g/dL (3.5-5.0); Alkaline Phosphatase 123 U/L (39-117); Anion Gap 12 (12-20); Aspartate Amino Transferase 45 U/L (5-31); Bilirubin Direct 2.3 mg/dL (0.0-0.5); Bilirubin Total 5.4 mg/dL (0.0-1.0); Blood Urea Nitrogen 8 mg/dL (9-16); Calcium 8.1 mg/dL (8.4-10.2); Carbon Dioxide 27 mmol/L (22-29); Chloride 99 mmol/L (96-108); Creatinine Clr Calc Pharmacy 93.8; Estimated Glomerular Filt Rate > 60; Glucose Random 127 mg/dL (60-115); Potassium 4.5 mmol/l (3.3-5.1); Sodium 133 mmol/L (135-145); Total Protein 5.2 g/dL (6.5-8.0)
[2020-02-19] MEDS: cefTRIAXone sodium 2 GM in 0.9 % Sodium Chloride 50 ML IV (14:27)
[2020-02-19 14:30] LABS: Influenza A PCR NEGATIVE (Negative); Influenza B PCR NEGATIVE (Negative); Resp Syncy Virus RNA Qual PCR NEGATIVE (Negative); SARS COV2 PCR INHOUSE NEGATIVE (Negative)
[2020-02-19 14:32] LABS: Lactic Acid 2.2 mmol/L (0.5-2.0)
--- NOTE | 2020-02-19 15:09 | PC.NURSE ---
Patient appears obtunded. RR 10 with prolonged expiratory phase. Autible wheezing R>L. ETCO2 13. 2L nasal cannula 98% No accessory muscle use however patient does report feeling increased WOB. Pending 2nd antibiotic. NSR 90's on tele.
[2020-02-19] MEDS: Azithromycin 500 MG in 0.9 % Sodium Chloride 250 ML 125 MG IV (15:22)
[2020-02-19 15:47] LABS: Reflex Lactate? Lactic Acid Added
--- NOTE | 2020-02-19 17:11 | PM.IMHP ---
History of Present Illness Date of Service: 02/19/20 Chief Complaint: Confusion, shortness of breaht, weakness 55-year-old female with a history of alcoholic liver cirrhosis presents to the emergency department with complaints shortness of breath and weakness. She was recently admitted under similar circumstance. She reports abdominal distension, shortness of breath for several days. She has no hypoxia, hemoglobin is 93. She is loopy and clinically encephalopathic. CXR shows pneumonia. Covid is negative. WBC is 13. Lactic acid is 2.2 Ammonia level is pending. She has asterixis. Review of Systems Review of Systems: Constitutional: Constitutional: Denies chills and Denies fever(s) Cardiovascular: Cardiovascular: Denies chest pain and Reports dyspnea Respiratory: Respiratory: Denies cough and Reports dyspnea Gastrointestinal: Gastrointestinal: Denies abdominal pain Yes all other systems are reviewed and are negative [facility] Medical History Anemia Anemia Anxiety Chronic back pain Chronic hyponatremia Cirrhosis Coagulopathy Congestive heart failure COPD (chronic obstructive pulmonary disease) Depression Diabetes 1.5, managed as type 2 Hyponatremia Liver disease Pneumonia PTSD (post-traumatic stress disorder) Thrombocytopenia Family History Other HTN (hypertension) Surgical History History of cholecystectomy Previous back surgery S/P TIPS (transjugular intrahepatic portosystemic shunt) Social History Household Members: Significant Other Housing: Apartment Do you presently have visiting nurse or other home services: No Alcohol intake: former Smoking Status: Current every day smoker Tobacco Type: Cigarette Packs Per Day: 0.5 Cigarettes Per Day: 0.5 Smoked in Last 30 Days: Yes Second Hand Smoke Exposure: No Use of substances other than those prescribed or required for medical reasons: Yes Substance Use Type: Marijuana Currently Displaying Signs/Symptoms of Drug Intoxication Withdrawal: No Any prior treatment program specific to substance use: No Have you been hit, kicked, punched, or otherwise hurt by someone within the past year? If so, by whom?: No Do you feel safe in your current relationship?: Yes Is there a partner from a previous relationship who is making you feel unsafe now?: No Are you made to feel afraid or neglected: No Advance Directives: No Advance Directives Information Provided: No Do you have thoughts of harming others: None Recently lost weight without trying: Unsure service: No Current occupational status: unemployed Meds Allergies Allergy/AdvReac Type Severity Reaction Status Date / Time lamotrigine [From LAMICTAL] Allergy Intermediate RASH Verified 01/20/20 00:45 amoxicillin [AMOXICILLIN] Allergy Unknown NAUSEA & Verified 01/20/20 00:45 VOMITING Iodinated Contrast Media Allergy Unknown ANAPHYLAXIS Verified 01/20/20 00:45 [CONTRAST, IV] Sulfa (Sulfonamide Allergy Unknown UNKNOWN Verified 01/20/20 00:45 Antibiotics) [SULFA (SULFONAMIDE ANTIBIOTICS)] sulfamethoxazole Allergy Unknown UNK Verified 01/20/20 00:45 [From BACTRIM] trimethoprim [From BACTRIM] Allergy Unknown UNK Verified 01/20/20 00:45 Home Medications Medication Instructions Recorded Confirmed Type Xifaxan 550 mg PO BID 01/20/20 02/19/20 History folic acid 1 mg PO DAILY 01/20/20 02/19/20 History lactulose 15 g PO TID 01/20/20 02/19/20 History omeprazole 20 mg PO BID 01/20/20 02/19/20 History potassium chloride 40 meq PO DAILY 01/20/20 02/19/20 History risperidone 2 mg PO BEDTIME 01/20/20 02/19/20 History Flovent HFA 2 puff INHALATION BID 02/09/20 02/19/20 History albuterol sulfate 2 puff INHALATION Q4H PRN 02/09/20 02/19/20 History calcium carbonate [Antacid Ext Str 1 tab PO TID PRN 02/09/20 02/19/20 History (calcium carb)] thiamine HCl (vitamin B1) 100 mg PO DAILY 02/09/20 02/19/20 History baclofen 10 mg PO QPM 02/13/20 02/19/20 History cetirizine 10 mg PO DAILY 02/19/20 02/19/20 History gabapentin 1 tab PO TID 02/19/20 02/19/20 History glycerin (adult) 1 supp PA DAILY PRN 02/19/20 02/19/20 History metformin 750 mg PO BEDTIME 02/19/20 02/19/20 History penicillin V potassium 500 mg PO QID 02/19/20 02/19/20 History pyridoxine (vitamin B6) 50 mg PO DAILY 02/19/20 02/19/20 History Physical Exam Vital Signs and Narrative: Vital Signs: Last Vital Signs Temp 100.2 F 02/19/20 15:05 Pulse 94 02/19/20 15:05 Resp 10 L 02/19/20 15:05 BP 122/51 L 02/19/20 15:05 Pulse Ox 98 02/19/20 15:05 Body Mass Index 38.8 Const: Nutritional Appearance: well nourished Orientation/consciousness: patient oriented x3 HENMT: Head: Yes normocephalic and Yes atraumatic Eyes: Sclerae: scleral abnormal bilateral ( bilateral scleral icterus) Chest: Chest palpation & inspection: normal inspection of the chest Resp: Effort & Inspection: normal respiratory effort and no respiratory distress Cardio: Rate: regular rate Rhythm: regular rhythm GI: Palpation (GI): Soft to palpation and nontender Skin: General skin exam: no rashes or lesions noted Neuro: General: patient oriented x3 Cranial nerves: Yes CN's II-XII intact bilaterally and Yes Bilaterally intact EOM present, asterixis Extrem: Other: anasarca General: Yes normal to inspection Results Labs CBC and Chem 7: 02/20/20 06:19 02/20/20 06:19 Labs: Laboratory Results - last 24 hr 02/19/20 02/19/20 02/19/20 13:43 13:43 13:43 MCV 99.3 H MCH 31.8 MCHC 32.1 RDW 18.8 H Plt Count 78 L MPV 11.5 Immature Gran % (Auto) 1.2 H Neut % (Auto) 81.5 H Lymph % (Auto) 5.9 L [place] % (Auto) 9.2 Eos % (Auto) 1.8 Baso % (Auto) 0.4 Lymph # (Auto) 0.8 L [place] # (Auto) 1.2 Eos # (Auto) 0.2 Baso # (Auto) 0.1 Abs Immat Gran (auto) 0.16 H Absolute Neuts (auto) 10.8 H Absolute Nucleated RBC 0.000 Nucleated RBC % (auto) 0.0 PT 22.6 H D INR 1.9 H APTT 48.2 H Anion Gap 12 Estim Creat Clear Calc 93.8 Estimated GFR > 60 Random Glucose 127 H Lactic Acid Calcium 8.1 L Total Bilirubin 5.4 H Direct Bilirubin 2.3 H AST 45 H ALT 17 Alkaline Phosphatase 123 H Total Protein 5.2 L Albumin 2.3 L Coronavirus (PCR) Influenza Type A (PCR) Influenza Type B (PCR) RSV RNA Qual (PCR) 02/19/20 02/19/20 13:43 13:46 MCV MCH MCHC RDW Plt Count MPV Immature Gran % (Auto) Neut % (Auto) Lymph % (Auto) [place] % (Auto) Eos % (Auto) Baso % (Auto) Lymph # (Auto) [place] # (Auto) Eos # (Auto) Baso # (Auto) Abs Immat Gran (auto) Absolute Neuts (auto) Absolute Nucleated RBC Nucleated RBC % (auto) PT INR APTT Anion Gap Estim Creat Clear Calc Estimated GFR Random Glucose Lactic Acid 2.2 H* Calcium Total Bilirubin Direct Bilirubin AST ALT Alkaline Phosphatase Total Protein Albumin Coronavirus (PCR) NEGATIVE Influenza Type A (PCR) NEGATIVE Influenza Type B (PCR) NEGATIVE RSV RNA Qual (PCR) NEGATIVE Imaging Radiologist's Impressions: Impressions Chest X-Ray 02/19/20 13:26 IMPRESSION: Left perihilar airspace consolidation, consistent with pneumonia in the appropriate clinical setting. No effusion. Assessment and Plan (1) Pneumonia: Qualifiers: Laterality: left Lung location: upper lobe of lung Pneumonia type: due to unspecified organism Qualified Code(s): J18.9 - Pneumonia, unspecified organism Status: Acute (2) Chronic liver failure: Qualifiers: Hepatic coma status: without hepatic coma Qualified Code(s): K72.10 - Chronic hepatic failure without coma Status: Acute (3) Advanced hepatic cirrhosis: Status: Acute (4) Anemia: Qualifiers: Anemia type: iron deficiency Iron deficiency anemia type: chronic blood loss Qualified Code(s): D50.0 - Iron deficiency anemia secondary to blood loss (chronic) Status: Acute (5) Hyponatremia: Status: Acute (6) Lactic acid acidosis: Status: Acute 55-year-old female with a history of alcoholic liver cirrhosis s/p TIPS, COPD, bipolar disorder, chronic back pain, diabetes and recent admissions for hepatic encephalopathy and hyponatremia who presented with shortness of breath and weakness found to have anemia, hepatic encephalopathy, and now sepsis and PNA Sepsis d/t PNA--no organ dysfunction as abnormal labs are within his baseline. -Given Ceftriaxone and Azithro -Add Zosyn hepatic encephalopathy- ammonia level is pending with associated asterixis. awake and alert at this time. received 1 dose of lactulose in the ED - continue lactulose - monitor ammonia level shortness of breath fluid overload in setting of cirrhosis COVID negative continue IV diuretics alcoholic liver cirrhosis associated anemia, thrombocytopenia, coagulopathy - continue Aldactone, diuretics, rifaximin anemia--H/H is within his baseline. chronic hyponatremia Na 1313 fluid restriction thrombocytopenia related to liver disease - follow CBC coagulopathy - related to liver disease. INR 1.9 Give Vit K - follow INR diabetes--check POC and SSI PRN chronic back pain - continue gabapentin dvt ppx - boots
[2020-02-19] MEDS: Piperacillin Sodium/Tazobactam 3.375 GM in 0.9 % Sodium Chloride 50 ML IV (17:58)
[2020-02-19] MEDS: Furosemide 40 MG/4 ML VIAL IVPUSH (17:58)
--- NOTE | 2020-02-19 18:14 | PC.NURSE ---
Labs currently being drawn. Receiving zosyn currently. Patient given Lasix. Unable to void on bedpan once. Will try again and then assess need for bess.
[2020-02-19 18:40] LABS: ~Lactic Acid-LAB USE ONLY 1.7 mmol/L (0.5-2.0)
--- NOTE | 2020-02-19 19:01 | PC.NURSE ---
Patient incontinent x1. Washed up in bed.
--- NOTE | 2020-02-19 20:08 | PC.NURSE ---
RN will call back for report.
[2020-02-19 20:24] LABS: Ammonia 67 umol/L (13-55)
--- NOTE | 2020-02-19 20:26 | PC.NURSE ---
Report given. Plan to transfer to floor.
[2020-02-19] MEDS: Lactulose 20 GM/30 ML SOLUTION 30 GM PO (21:09)
[2020-02-20] VITALS (7 sets, daily range): BP systolic 96–146; BP diastolic 56–74; PULSE 79–89; RESP 18–20; TEMP 36.1–36.6; O2SAT 98–100
--- NOTE | 2020-02-20 | US_ITS ---
EXAMINATION: US ABDOMEN LIMITED CLINICAL INFORMATION: Ascites. COMPARISON: CT abdomen and pelvis 02/13/2020. Ultrasound abdomen limited 05/01/2018. Ultrasound abdomen complete 09/06/2013. TECHNIQUE: Real-time imaging of all 4 quadrants. FINDINGS: Only trace ascites appreciated within the right lower quadrant. No ascites demonstrated within the right upper abdomen or left hemiabdomen. US/US abdomen limited IMPRESSION: Trace right lower quadrant ascites.
[2020-02-20] MEDS: rifAXIMin 550 MG TABLET PO ×3 (00:29→21:30)
[2020-02-20] MEDS: Gabapentin 600 MG TABLET PO ×4 (00:29→21:30)
[2020-02-20] MEDS: risperiDONE 0.5 MG TABLET 2 MG PO ×2 (00:29→21:31)
[2020-02-20] MEDS: Omeprazole 20 MG CAPSULE.DR PO ×3 (00:30→21:30)
[2020-02-20] MEDS: Ibuprofen 600 MG TABLET PO (00:30)
[2020-02-20] MEDS: Lactulose 20 GM/30 ML SOLUTION 15 GM PO (00:30)
[2020-02-20] MEDS: Phytonadione (Vit K1) Oral 10 MG/ML AMPUL PO (00:31)
[2020-02-20] MEDS: 0.9 % Sodium Chloride Flush 3 ML SYRINGE IVFLUSH ×3 (01:08→15:00)
[2020-02-20] MEDS: Morphine Sulfate 2 MG/ML CARTRIDGE 1 MG IVPUSH (04:02)
[2020-02-20] MEDS: Albuterol Sulfate 90 MCG 8 GM INHALER 2 PUFF INHALE (05:07)
[2020-02-20] MEDS: Piperacillin Sodium/Tazobactam 3.375 GM in 0.9 % Sodium Chloride 50 ML IV ×3 (05:41→17:44)
[2020-02-20 07:10] LABS: Hematocrit 25.9 % (37-47); Hemoglobin 8.4 g/dl (12.0-16.0); Mean Corpuscular HGB Conc 32.4 g/dl (31.0-35.0); Mean Corpuscular Hemoglobin 32.3 pg (27.0-33.0); Mean Corpuscular Volume 99.6 fL (80-98); Mean Platelet Volume 11.8 fL (9.4-12.3); White Blood Count 7.2 X10*3/uL (4.8-10.8)
[2020-02-20 07:17] LABS: Platelet Count 59 X10*3/uL (160-400)
[2020-02-20 07:23] LABS: Ammonia 62 umol/L (13-55)
[2020-02-20 07:36] LABS: Anion Gap 15 (12-20); Blood Urea Nitrogen 14 mg/dL (9-16); Carbon Dioxide 23 mmol/L (22-29); Chloride 101 mmol/L (96-108); Creatinine Clr Calc Pharmacy 76.5; Estimated Glomerular Filt Rate > 60; Glucose Random 214 mg/dL (60-115); Potassium 3.7 mmol/l (3.3-5.1); Sodium 135 mmol/L (135-145)
[2020-02-20] MEDS: Fluticasone Propionate 250 MCG BLST.W.DEV 2 PUFF INHALE ×2 (08:10→20:17)
--- NOTE | 2020-02-20 09:30 | HO.PM.IMPN ---
Subjective Subjective Date of Service: 02/20/20 Interval History: Seen in follow-up for all hepatic encephalopathy pneumonia. she is more awake today minimal shortness of breath. Review of Systems Gen: no fever Resp: no sob, no cough CV: no chest, no SHANNON, + leg edema GI: No n/v, no abd pain Neuro: No confusion Physical Exam Vital Signs: Vital Signs: Last Vital Signs Temp 97.8 F 02/20/20 08:00 Pulse 79 02/20/20 08:00 Resp 20 02/20/20 08:00 BP 96/56 L 02/20/20 08:00 Pulse Ox 98 02/20/20 08:00 Body Mass Index 38.8 Const: No distress, fully alert and oriented Eyes: Sclerae: scleral abnormal bilateral ( bilateral scleral icterus) Resp: Effort & Inspection: normal respiratory effort and no respiratory distress Cardio: Rate: regular rate Rhythm: regular rhythm GI: Palpation (GI): Soft to palpation, no distention. Skin: General skin exam: no rashes or lesions noted Neuro: General: patient oriented x3 Cranial nerves: Yes CN's II-XII intact bilaterally and Yes Bilaterally intact EOM present, no asterixis Extrem: Other: anasarca General: 2 edema Objective Data Current Medications Generic Name Dose Route Start Last Admin Trade Name Freq PRN Reason Stop Dose Admin Albuterol Sulfate 2 puff 02/19/20 22:08 02/20/20 05:07 Albuterol Sulfate 90 Mcg 8 Gm Inhaler INHALE 2 puff Q4H PRN Administration Shortness Of Breath Baclofen 10 mg 02/20/20 21:00 Baclofen 10 Mg Tablet PO BEDTIME LILLI Calcium Carbonate 750 mg 02/19/20 22:08 Calcium Carbonate 750 Mg Tab.Chew PO TID PRN Heartburn Fluticasone Propionate 2 puff 02/20/20 08:00 02/20/20 08:10 Fluticasone Propionate 250 Mcg Blst.W.Dev INHALE 2 puff RBID LILLI Administration Folic Acid 1 mg 02/20/20 09:00 Folic Acid 1 Mg Tablet PO DAILY LILLI Gabapentin 600 mg 02/19/20 22:08 02/20/20 00:29 Gabapentin 600 Mg Tablet PO 600 mg TID LILLI Administration Glycerin 1 supp 02/19/20 22:08 Glycerin Adult Supp.Rect DE DAILY PRN Constipation Piperacillin Sod/Tazobactam 50 mls @ 100 mls/hr 02/19/20 17:45 02/20/20 06:16 Sod 3.375 gm/ Sodium Chloride IV Infused Q6H [facility] Infusion Lactulose 15 gm 02/19/20 22:08 02/20/20 00:30 Lactulose 20 Gm/30 Ml Solution PO 15 gm TID LILLI Administration Loratadine 10 mg 02/20/20 09:00 Loratadine 10 Mg Tablet PO DAILY [facility] Omeprazole 20 mg 02/19/20 22:08 02/20/20 00:30 Omeprazole 20 Mg Capsule.Dr PO 20 mg BID LILLI Administration Pharmacy Consult 1 each 02/19/20 14:58 Consult Rx Perform Med Rec MISCELLANE ONCE PRN Consult order Potassium Chloride 40 meq 02/20/20 09:00 Potassium Chloride Er 20 Meq Tab.Er.Prt PO DAILY LILLI Pyridoxine HCl 50 mg 02/20/20 09:00 Pyridoxine Hcl (Vitamin B6) 50 Mg Tablet PO DAILY [facility] Rifaximin 550 mg 02/19/20 22:08 02/20/20 00:29 Rifaximin 550 Mg Tablet PO 550 mg BID LILLI Administration Risperidone 2 mg 02/19/20 22:08 02/20/20 00:29 Risperidone 0.5 Mg Tablet PO 2 mg BEDTIME LILLI Administration Sodium Chloride 3 ml 02/20/20 00:00 02/20/20 01:08 0.9 % Sodium Chloride Flush 3 Ml Syringe IVFLUSH 3 ml QSHIFT [facility] Administration Spironolactone 25 mg 02/20/20 09:00 Spironolactone 25 Mg Tablet PO DAILY [facility] Protocol Thiamine HCl 100 mg 02/20/20 09:00 Thiamine Hcl 100 Mg Tablet PO DAILY [facility] Torsemide 10 mg 02/20/20 09:00 Torsemide 20 Mg Tablet PO DAILY [facility] Protocol Labs CBC & Chem 7: 02/20/20 06:19 02/20/20 06:19 Assessment and Plan (1) Pneumonia: Status: Acute (2) Chronic liver failure: Status: Acute (3) Advanced hepatic cirrhosis: Status: Acute (4) Anemia: Status: Acute (5) Hyponatremia: Status: Acute (6) Lactic acid acidosis: Status: Acute Assessment and Plan: 55-year-old female with a history of alcoholic liver cirrhosis s/p TIPS, COPD, bipolar disorder, chronic back pain, diabetes and recent admissions for hepatic encephalopathy and hyponatremia who presented with shortness of breath and weakness found to have anemia, hepatic encephalopathy, and now sepsis and PNA Sepsis d/t PNA--no organ dysfunction as abnormal labs are within his baseline. Sepsis is now resolved, WBC within normal -Given Ceftriaxone and Azithro in ED x 1 -Zosyn D2 and change to PO by tomorrow hepatic encephalopathy- ammonia level is down, she is lucid, she is not compliant with lactulose -continue lactulose, rifaximin shortness of breath fluid overload in setting of cirrhosis continue IV diuretics for ascietes and cosider paracentesis alcoholic liver cirrhosis associated anemia, thrombocytopenia, coagulopathy - continue Aldactone, diuretics, rifaximin anemia--H/H is within his baseline. chronic hyponatremia Na 135 today fluid restriction thrombocytopenia related to liver disease - follow CBC coagulopathy - related to liver disease. INR 1.9 on admission and given Vit k, repeat tomorrow diabetes--check POC and SSI PRN chronic back pain - continue gabapentin, oxycodone dvt ppx - boots
[2020-02-20] MEDS: Spironolactone 25 MG TABLET PO (11:00)
[2020-02-20] MEDS: Potassium Chloride ER 20 MEQ TAB.ER.PRT 40 MEQ PO (11:01)
[2020-02-20] MEDS: Folic Acid 1 MG TABLET PO (11:01)
[2020-02-20] MEDS: Pyridoxine HCl (Vitamin B6) 50 MG TABLET PO (11:01)
[2020-02-20] MEDS: Loratadine 10 MG TABLET PO (11:01)
[2020-02-20] MEDS: Torsemide 20 MG TABLET 10 MG PO (11:02)
[2020-02-20] MEDS: Furosemide 40 MG/4 ML VIAL IVPUSH ×2 (11:02→21:30)
[2020-02-20] MEDS: Thiamine HCL 100 MG TABLET PO (11:02)
[2020-02-20] MEDS: Lactulose 20 GM/30 ML SOLUTION 30 GM PO ×3 (11:03→21:30)
[2020-02-20] MEDS: oxyCODONE HCl Immed Release 5 MG TABLET PO ×2 (14:59→21:30)
--- NOTE | 2020-02-20 15:28 | MHC.CM.PN ---
Addendum entered by Adilene Dawkins 02/20/20 16:15: PCP IS MISTY BRAVO OF [facility] [phone]. Original Note: PATIENT LIVES WITH HER SIGNIFICANT OTHER. SHE RELIES ON A SEATED WALKER FOR AMBULATION ASSIST. [facility] OFFERS 20.15 HOURS OF [facility], [facility], AND TRANSPORTATION TO AND FROM MEDICAL VISITS. PATIENT VERBALIZES COMPREHENSION OF IMM DELIVERY AND GIVES PERMISSION TO LEAVE WITH HER BELONGINGS SECONDARY TO COVID PRECAUTIONS. REFERRAL PLACED TO [facility] TO FOLLOW FOR RESUMPTION. HCP COPY ON FILE. IMM 02/19 IN CHART.
[2020-02-20] MEDS: Baclofen 10 MG TABLET PO (21:30)
[2020-02-21] VITALS (7 sets, daily range): BP systolic 102–110; BP diastolic 55–61; PULSE 79–88; RESP 18–20; TEMP 36.3–37.1; O2SAT 95–98
[2020-02-21] MEDS: Piperacillin Sodium/Tazobactam 3.375 GM in 0.9 % Sodium Chloride 50 ML IV ×4 (00:04→17:38)
[2020-02-21] MEDS: 0.9 % Sodium Chloride Flush 3 ML SYRINGE IVFLUSH ×3 (00:04→16:08)
[2020-02-21] MEDS: Acetaminophen 325 MG TABLET 650 MG PO ×3 (00:59→20:47)
[2020-02-21] MEDS: oxyCODONE HCl Immed Release 5 MG TABLET PO ×4 (05:16→20:39)
[2020-02-21 07:05] LABS: Ammonia 76 umol/L (13-55)
[2020-02-21 07:13] LABS: Anion Gap 13 (12-20); Blood Urea Nitrogen 17 mg/dL (9-16); Calcium 8.1 mg/dL (8.4-10.2); Carbon Dioxide 26 mmol/L (22-29); Chloride 99 mmol/L (96-108); Creatinine Clr Calc Pharmacy 79.1; Estimated Glomerular Filt Rate > 60; Glucose Random 105 mg/dL (60-115); Potassium 3.5 mmol/l (3.3-5.1); Sodium 134 mmol/L (135-145)
[2020-02-21] MEDS: Fluticasone Propionate 250 MCG BLST.W.DEV 2 PUFF INHALE ×2 (07:55→20:17)
[2020-02-21] MEDS: Thiamine HCL 100 MG TABLET PO (09:18)
[2020-02-21] MEDS: Potassium Chloride ER 20 MEQ TAB.ER.PRT 40 MEQ PO (09:18)
[2020-02-21] MEDS: Omeprazole 20 MG CAPSULE.DR PO ×2 (09:18→20:39)
[2020-02-21] MEDS: Loratadine 10 MG TABLET PO (09:18)
[2020-02-21] MEDS: Spironolactone 25 MG TABLET PO (09:18)
[2020-02-21] MEDS: Lactulose 20 GM/30 ML SOLUTION 30 GM PO ×4 (09:18→20:40)
[2020-02-21] MEDS: rifAXIMin 550 MG TABLET PO ×2 (09:18→20:38)
[2020-02-21] MEDS: Pyridoxine HCl (Vitamin B6) 50 MG TABLET PO (09:18)
[2020-02-21] MEDS: Torsemide 20 MG TABLET 10 MG PO (09:19)
[2020-02-21] MEDS: Folic Acid 1 MG TABLET PO (09:19)
[2020-02-21] MEDS: Gabapentin 600 MG TABLET PO ×3 (09:19→20:39)
[2020-02-21] MEDS: Furosemide 40 MG/4 ML VIAL IVPUSH ×2 (09:19→21:17)
--- NOTE | 2020-02-21 11:22 | P.PNIM_ITS ---
Subjective Subjective Date of Service: 02/21/20 Interval History: she seemed more confused this morning corresponding to rising ammonia level. No shortness of breath, oxygen saturation is within normal. Of note she went down for paracenteses yesterday but there was no fluid. Review of Systems Gen: no fever Resp: no sob, no cough CV: no chest, no SHANNON, no leg edema GI: No n/v, no abd pain Neuro: some confusion Physical Exam Vital Signs: Vital Signs: Last Vital Signs Temp 97.8 F 02/21/20 11:18 Pulse 83 02/21/20 11:18 Resp 18 02/21/20 11:18 BP 110/58 L 02/21/20 11:18 Pulse Ox 98 02/21/20 11:18 Body Mass Index 38.8 Const: No distress, oriented to elly, place Eyes: Sclerae: scleral abnormal bilateral ( bilateral scleral icterus) Resp: Effort & Inspection: normal respiratory effort and no respiratory distress Cardio: Rate: regular rate Rhythm: regular rhythm GI: Palpation (GI): Soft to palpation, no distention. Skin: General skin exam: no rashes or lesions noted Neuro: General: patient oriented x2, motor function intact Extrem: Other: anasarca General: 2 edema Objective Data Current Medications Generic Name Dose Route Start Last Admin Trade Name Freq PRN Reason Stop Dose Admin Acetaminophen 650 mg 02/20/20 21:20 02/21/20 00:59 Acetaminophen 325 Mg Tablet PO 650 mg Q6H PRN Administration Pain, Mild (Pain Scale 1-3) Albuterol Sulfate 2 puff 02/19/20 22:08 02/20/20 05:07 Albuterol Sulfate 90 Mcg 8 Gm Inhaler INHALE 2 puff Q4H PRN Administration Shortness Of Breath Baclofen 10 mg 02/20/20 21:00 02/20/20 21:30 Baclofen 10 Mg Tablet PO 10 mg BEDTIME LILLI Administration Calcium Carbonate 750 mg 02/19/20 22:08 Calcium Carbonate 750 Mg Tab.Chew PO TID PRN Heartburn Fluticasone Propionate 2 puff 02/20/20 08:00 02/21/20 07:55 Fluticasone Propionate 250 Mcg Blst.W.Dev INHALE 2 puff RBID LILLI Administration Folic Acid 1 mg 02/20/20 09:00 12/06/20 09:19 Folic Acid 1 Mg Tablet PO 1 mg DAILY [facility]ILLI Administration Furosemide 40 mg 02/20/20 10:00 02/21/20 09:19 Furosemide 40 Mg/4 Ml Vial IVPUSH 40 mg Q12H [facility]ILLI Administration Protocol Gabapentin 600 mg 02/19/20 22:08 02/21/20 09:19 Gabapentin 600 Mg Tablet PO 600 mg TID LILLI Administration Glycerin 1 supp 02/19/20 22:08 Glycerin Adult Supp.Rect SC DAILY PRN Constipation Piperacillin Sod/Tazobactam 50 mls @ 100 mls/hr 02/19/20 17:45 02/21/20 05:48 Sod 3.375 gm/ Sodium Chloride IV Infused Q6H [facility] Infusion Lactulose 30 gm 02/20/20 15:00 02/21/20 09:18 Lactulose 20 Gm/30 Ml Solution PO 30 gm TID LILLI Administration Loratadine 10 mg 02/20/20 09:00 02/21/20 09:18 Loratadine 10 Mg Tablet PO 10 mg DAILY [facility] Administration Omeprazole 20 mg 02/19/20 22:08 02/21/20 09:18 Omeprazole 20 Mg Capsule.Dr PO 20 mg BID LILLI Administration Oxycodone HCl 5 mg 02/20/20 14:45 02/21/20 09:21 Oxycodone Hcl Immed Release 5 Mg Tablet PO 5 mg Q4H PRN Administration Pain, Severe (Pain Scale 7-10) Pharmacy Consult 1 each 02/19/20 14:58 Consult Rx Perform Med Rec MISCELLANE ONCE PRN Consult order Potassium Chloride 40 meq 02/20/20 09:00 02/21/20 09:18 Potassium Chloride Er 20 Meq Tab.Er.Prt PO 40 meq DAILY [facility]ILLI Administration Pyridoxine HCl 50 mg 02/20/20 09:00 02/21/20 09:18 Pyridoxine Hcl (Vitamin B6) 50 Mg Tablet PO 50 mg DAILY [facility]I Administration Rifaximin 550 mg 02/19/20 22:08 02/21/20 09:18 Rifaximin 550 Mg Tablet PO 550 mg BID LILLI Administration Risperidone 2 mg 02/19/20 22:08 02/20/20 21:31 Risperidone 0.5 Mg Tablet PO 2 mg BEDTIME LILLI Administration Sodium Chloride 3 ml 02/20/20 00:00 02/21/20 09:17 0.9 % Sodium Chloride Flush 3 Ml Syringe IVFLUSH 3 ml QSHIFT LILLI Administration Spironolactone 25 mg 02/20/20 09:00 02/21/20 09:18 Spironolactone 25 Mg Tablet PO 25 mg DAILY [facility]ILLI Administration Protocol Thiamine HCl 100 mg 02/20/20 09:00 02/21/20 09:18 Thiamine Hcl 100 Mg Tablet PO 100 mg DAILY [facility]ILLI Administration Torsemide 10 mg 02/20/20 09:00 02/21/20 09:19 Torsemide 20 Mg Tablet PO 10 mg DAILY [facility]ILLI Administration Protocol Labs CBC & Chem 7: 02/20/20 06:19 02/21/20 06:25 Microbiology Microbiology Results: Microbiology 02/19/20 14:05 Blood - Venous Blood Culture - Preliminary No growth after 24 hours. 02/19/20 13:43 Blood - Venous Blood Culture - Preliminary No growth after 24 hours. Assessment and Plan (1) Pneumonia: Status: Acute (2) Chronic liver failure: Status: Acute (3) Advanced hepatic cirrhosis: Status: Acute (4) Anemia: Status: Acute (5) Hyponatremia: Status: Acute (6) Lactic acid acidosis: Status: Acute Assessment and Plan: 55-year-old female with a history of alcoholic liver cirrhosis s/p TIPS, COPD, bipolar disorder, chronic back pain, diabetes and recent admissions for hepatic encephalopathy and hyponatremia who presented with shortness of breath and weakness found to have anemia, hepatic encephalopathy, and now sepsis and PNA Sepsis d/t PNA--no organ dysfunction as abnormal labs are within his baseline. Sepsis is now resolved, WBC within normal -Given Ceftriaxone and Azithro in ED x 1 -Zosyn D3, and change today hepatic encephalopathy- ammonia level has gone up since yesterday, corresponding to more confusion. -continue lactulose, increase to 30 qid from tid, continue rifaximin alcoholic liver cirrhosis associated anemia, thrombocytopenia, coagulopathy - continue Aldactone, diuretics (iv lasix given anasarca) Torsemide at dischar ge, rifaximin -went down for paracentesis on 02/20/20 but no enough fluid to drain anemia--H/H is within his baseline. chronic hyponatremia Na 134 today fluid restriction thrombocytopenia related to liver disease - follow CBC coagulopathy - related to liver disease. Got vit k on admission, recheck tomorrow diabetes--check POC and SSI PRN chronic back pain and toothache from recent tooth extraction - continue gabapentin, oxycodone dvt ppx - boots, no heparin/lovenox due to thrombocytopenia
[2020-02-21] MEDS: Albuterol Sulfate 90 MCG 8 GM INHALER 2 PUFF INHALE ×2 (13:29→20:31)
[2020-02-21] MEDS: Baclofen 10 MG TABLET PO (20:38)
[2020-02-21] MEDS: risperiDONE 0.5 MG TABLET 2 MG PO (20:38)
[2020-02-22] VITALS (8 sets, daily range): BP systolic 104–160; BP diastolic 62–89; PULSE 69–84; RESP 12–19; TEMP 36.1–37.1; O2SAT 93–98; BMI 38.8
[2020-02-22] MEDS: Piperacillin Sodium/Tazobactam 3.375 GM in 0.9 % Sodium Chloride 50 ML IV ×5 (00:08→23:42)
[2020-02-22] MEDS: oxyCODONE HCl Immed Release 5 MG TABLET PO ×5 (01:08→22:03)
[2020-02-22] MEDS: 0.9 % Sodium Chloride Flush 3 ML SYRINGE IVFLUSH ×4 (01:34→23:42)
[2020-02-22] MEDS: Acetaminophen 325 MG TABLET 650 MG PO ×3 (06:24→19:41)
[2020-02-22 06:46] LABS: Hematocrit 28.2 % (37-47); Hemoglobin 8.9 g/dl (12.0-16.0); Mean Corpuscular HGB Conc 31.6 g/dl (31.0-35.0); Mean Corpuscular Hemoglobin 31.7 pg (27.0-33.0); Mean Corpuscular Volume 100.4 fL (80-98); Red Blood Count 2.81 X10*6/uL (4.20-5.50); Red Cell Distribution Width 19.2 % (11.0-16.0); White Blood Count 7.6 X10*3/uL (4.8-10.8)
[2020-02-22 06:47] LABS: Platelet Count 86 X10*3/uL (160-400)
[2020-02-22 07:10] LABS: INTERNATIONAL NORM RATIO 1.6 (0.9-1.1); Prothrombin Time 19.4 SEC (10.8-13.0)
[2020-02-22] MEDS: Fluticasone Propionate 250 MCG BLST.W.DEV 2 PUFF INHALE ×2 (07:29→19:41)
[2020-02-22 07:37] LABS: Ammonia 78 umol/L (13-55); Blood Urea Nitrogen 13 mg/dL (9-16); Calcium 7.9 mg/dL (8.4-10.2); Creatinine Clr Calc Pharmacy 76.5; Estimated Glomerular Filt Rate > 60; Glucose Random 123 mg/dL (60-115)
[2020-02-22 08:07] LABS: Anion Gap 15 (12-20); Carbon Dioxide 26 mmol/L (22-29); Chloride 99 mmol/L (96-108); Potassium 2.9 mmol/l (3.3-5.1); Sodium 137 mmol/L (135-145)
[2020-02-22] MEDS: Spironolactone 25 MG TABLET PO (08:51)
[2020-02-22] MEDS: Omeprazole 20 MG CAPSULE.DR PO ×2 (08:51→20:56)
[2020-02-22] MEDS: Torsemide 20 MG TABLET 10 MG PO (08:51)
[2020-02-22] MEDS: Potassium Chloride ER 20 MEQ TAB.ER.PRT 40 MEQ PO ×2 (08:51→13:35)
[2020-02-22] MEDS: Thiamine HCL 100 MG TABLET PO (08:51)
[2020-02-22] MEDS: rifAXIMin 550 MG TABLET PO ×2 (08:51→20:57)
[2020-02-22] MEDS: Gabapentin 600 MG TABLET PO ×3 (08:51→20:57)
[2020-02-22] MEDS: Pyridoxine HCl (Vitamin B6) 50 MG TABLET PO (08:52)
[2020-02-22] MEDS: Folic Acid 1 MG TABLET PO (08:52)
[2020-02-22] MEDS: Loratadine 10 MG TABLET PO (08:52)
[2020-02-22] MEDS: Furosemide 40 MG/4 ML VIAL IVPUSH ×2 (08:53→22:03)
[2020-02-22] MEDS: Lactulose 20 GM/30 ML SOLUTION 30 GM PO ×3 (08:53→20:57)
--- NOTE | 2020-02-22 17:30 | HO.PM.IMPN ---
Subjective Subjective Date of Service: 02/23/20 Interval History: patient seen for follow-up on hepatic encephalopathy and sepsis related to pneumonia, patient awake alert this morning has difficulty with ambulation due to persistent generalized swelling, patient denies any shortness of breath , no cough, no other acute issues overnight. Review of Systems General no headache, no dizziness, no fever chills. CVS no chest pain, no palpitation. Respiratory no cough, no respiratory distress. Gastrointestinal no nausea, no vomiting, no abdominal pain Physical Exam Vital Signs: Vital Signs: Last Vital Signs Temp 97.5 F 02/22/20 16:00 Pulse 77 02/22/20 16:00 Resp 18 02/22/20 16:00 BP 116/62 02/22/20 16:00 Pulse Ox 98 02/22/20 16:00 Body Mass Index 38.8 General no acute distress. Neck is supple no JVD. CVS regular rate rhythm, Respiratory no respiratory distress, no wheeze, no rhonchi. Gastrointestinal abdomen soft, nontender, bowel sounds audible, no guarding , no rigidity. Extremities bilateral edema. Neuro nonfocal patient moving all 4 extremity, speech clear. Skin no rash Objective Data Current Medications Generic Name Dose Route Start Last Admin Trade Name Freq PRN Reason Stop Dose Admin Acetaminophen 650 mg 02/20/20 21:20 02/22/20 13:35 Acetaminophen 325 Mg Tablet PO 650 mg Q6H PRN Administration Pain, Mild (Pain Scale 1-3) Albuterol Sulfate 2 puff 02/19/20 22:08 02/21/20 20:31 Albuterol Sulfate 90 Mcg 8 Gm Inhaler INHALE 2 puff Q4H PRN Administration Shortness Of Breath Baclofen 10 mg 02/20/20 21:00 02/21/20 20:38 Baclofen 10 Mg Tablet PO 10 mg BEDTIME LILLI Administration Calcium Carbonate 750 mg 02/19/20 22:08 Calcium Carbonate 750 Mg Tab.Chew PO TID PRN Heartburn Fluticasone Propionate 2 puff 02/20/20 08:00 02/22/20 07:29 Fluticasone Propionate 250 Mcg Blst.W.Dev INHALE 2 puff RBID LILLI Administration Folic Acid 1 mg 02/20/20 09:00 02/22/20 08:52 Folic Acid 1 Mg Tablet PO 1 mg DAILY LILLI Administration Furosemide 40 mg 02/20/20 10:00 02/22/20 08:53 Furosemide 40 Mg/4 Ml Vial IVPUSH 40 mg Q12H LILLI Administration Protocol Gabapentin 600 mg 02/19/20 22:08 02/22/20 15:45 Gabapentin 600 Mg Tablet PO 600 mg TID LILLI Administration Glycerin 1 supp 02/19/20 22:08 Glycerin Adult Supp.Rect NC DAILY PRN Constipation Piperacillin Sod/Tazobactam 50 mls @ 100 mls/hr 02/19/20 17:45 02/22/20 14:11 Sod 3.375 gm/ Sodium Chloride IV Infused Q6H [facility]I Infusion Lactulose 30 gm 02/20/20 15:00 02/22/20 15:45 Lactulose 20 Gm/30 Ml Solution PO 30 gm TID LILLI Administration Loratadine 10 mg 02/20/20 09:00 02/22/20 08:52 Loratadine 10 Mg Tablet PO 10 mg DAILY LILLI Administration Omeprazole 20 mg 02/19/20 22:08 02/22/20 08:51 Omeprazole 20 Mg Capsule.Dr PO 20 mg BID LILLI Administration Ondansetron HCl 4 mg 02/21/20 12:54 Ondansetron Hcl 4 Mg/2 Ml Vial IVPUSH Q8H PRN Nausea and Vomiting Oxycodone HCl 5 mg 02/20/20 14:45 02/22/20 13:35 Oxycodone Hcl Immed Release 5 Mg Tablet PO 5 mg Q4H PRN Administration Pain, Severe (Pain Scale 7-10) Pharmacy Consult 1 each 02/19/20 14:58 Consult Rx Perform Med Rec MISCELLANE ONCE PRN Consult order Potassium Chloride 40 meq 02/20/20 09:00 02/22/20 08:51 Potassium Chloride Er 20 Meq Tab.Er.Prt PO 40 meq DAILY [facility]ILLI Administration Pyridoxine HCl 50 mg 02/20/20 09:00 02/22/20 08:52 Pyridoxine Hcl (Vitamin B6) 50 Mg Tablet PO 50 mg DAILY [facility]ILLI Administration Rifaximin 550 mg 02/19/20 22:08 02/22/20 08:51 Rifaximin 550 Mg Tablet PO 550 mg BID LILLI Administration Risperidone 2 mg 02/19/20 22:08 02/21/20 20:38 Risperidone 0.5 Mg Tablet PO 2 mg BEDTIME LILLI Administration Sodium Chloride 3 ml 02/20/20 00:00 02/22/20 15:45 0.9 % Sodium Chloride Flush 3 Ml Syringe IVFLUSH 3 ml QSHIFT LILLI Administration Spironolactone 50 mg 02/23/20 09:00 Spironolactone 25 Mg Tablet PO DAILY [facility] Protocol Thiamine HCl 100 mg 02/20/20 09:00 02/22/20 08:51 Thiamine Hcl 100 Mg Tablet PO 100 mg DAILY LILLI Administration Torsemide 10 mg 02/20/20 09:00 02/22/20 08:51 Torsemide 20 Mg Tablet PO 10 mg DAILY LILLI Administration Protocol Labs CBC & Chem 7: 02/22/20 06:15 02/23/20 06:13 Microbiology Microbiology Results: Microbiology 02/19/20 14:05 Blood - Venous Blood Culture - Preliminary No growth after 48 hours. 02/19/20 13:43 Blood - Venous Blood Culture - Preliminary No growth after 48 hours. Assessment and Plan (1) Pneumonia: Status: Acute (2) Chronic liver failure: Status: Acute (3) Advanced hepatic cirrhosis: Status: Acute (4) Anemia: Status: Acute (5) COPD (chronic obstructive pulmonary disease): Status: Acute (6) Hyponatremia: Status: Acute (7) Lactic acid acidosis: Status: Acute Assessment and Plan: 55-year-old female with a history of alcoholic liver cirrhosis s/p TIPS, COPD, bipolar disorder, chronic back pain, diabetes and recent admissions for hepatic encephalopathy and hyponatremia who presented with shortness of breath and weakness found to have anemia, hepatic encephalopathy, and now sepsis and PNA Sepsis d/t PNA--no organ dysfunction, Sepsis is now resolved, WBC within normal range -Given Ceftriaxone and Azithro in ED x 1, now on IV Zosyn day 4, continue supportive care and change to by mouth antibiotic upon discharge hepatic encephalopathy- resolved ammonia level improved but remains elevated seems to be chronic,continue lactulose, 30 mg qid,continue rifaximin alcoholic liver cirrhosis associated anemia, thrombocytopenia, coagulopathy and generalized anasarca continue Aldactone dose increased to 50 mg, continue IV Lasix given persistent anasarca, will increase dose of torsemide upon discharge, continue rifaximin went down for paracentesis on 02/20/20 but no enough fluid to drain hypokalemia related to IV diuretics will replace and follow anemia--H/H is within his baseline. chronic hyponatremia ordered fluid restriction 1200 mL, sodium improved to 137 thrombocytopenia related to liver disease, stable no active bleed noted coagulopathy related to liver disease. Got vit k on admission, repeat INR remains elevated 1.6 diabetes--check POC and SSI PRN chronic back pain and toothache from recent tooth extraction continue gabapentin, and oxycodone dvt ppx - boots, no heparin/lovenox due to thrombocytopenia
[2020-02-22] MEDS: risperiDONE 0.5 MG TABLET 2 MG PO (20:55)
[2020-02-22] MEDS: Baclofen 10 MG TABLET PO (20:56)
[2020-02-23 04:00] VITALS: BP 116/69; PULSE 76; RESP 14; TEMP 35.9; O2SAT 98
[2020-02-23] MEDS: oxyCODONE HCl Immed Release 5 MG TABLET PO ×2 (04:19→08:08)
[2020-02-23] MEDS: Acetaminophen 325 MG TABLET 650 MG PO ×2 (04:23→10:05)
[2020-02-23] MEDS: Piperacillin Sodium/Tazobactam 3.375 GM in 0.9 % Sodium Chloride 50 ML IV (05:40)
[2020-02-23] MEDS: Lactulose 20 GM/30 ML SOLUTION 30 GM PO (07:10)
[2020-02-23] MEDS: Spironolactone 25 MG TABLET 50 MG PO (07:11)
[2020-02-23] MEDS: rifAXIMin 550 MG TABLET PO (07:11)
[2020-02-23] MEDS: Potassium Chloride ER 20 MEQ TAB.ER.PRT 40 MEQ PO ×2 (07:12→11:37)
[2020-02-23] MEDS: Pyridoxine HCl (Vitamin B6) 50 MG TABLET PO (07:12)
[2020-02-23] MEDS: Torsemide 20 MG TABLET 10 MG PO (07:12)
[2020-02-23] MEDS: Folic Acid 1 MG TABLET PO (07:13)
[2020-02-23] MEDS: Furosemide 40 MG/4 ML VIAL IVPUSH (07:13)
[2020-02-23] MEDS: Omeprazole 20 MG CAPSULE.DR PO (07:13)
[2020-02-23] MEDS: Thiamine HCL 100 MG TABLET PO (07:13)
[2020-02-23] MEDS: Loratadine 10 MG TABLET PO (07:13)
[2020-02-23] MEDS: Gabapentin 600 MG TABLET PO (07:13)
[2020-02-23] MEDS: 0.9 % Sodium Chloride Flush 3 ML SYRINGE IVFLUSH (07:14)
[2020-02-23 07:15] LABS: Anion Gap 10 (12-20); Blood Urea Nitrogen 9 mg/dL (9-16); Calcium 7.9 mg/dL (8.4-10.2); Carbon Dioxide 30 mmol/L (22-29); Chloride 100 mmol/L (96-108); Creatinine Clr Calc Pharmacy 90.3; Estimated Glomerular Filt Rate > 60; Glucose Random 126 mg/dL (60-115); Potassium 3.1 mmol/l (3.3-5.1); Sodium 137 mmol/L (135-145)
[2020-02-23] MEDS: Fluticasone Propionate 250 MCG BLST.W.DEV 2 PUFF INHALE (07:32)
[2020-02-23 07:36] VITALS: O2SAT 95
[2020-02-23 07:50] VITALS: BP 143/92; PULSE 80; RESP 22; TEMP 36.3; O2SAT 96
--- NOTE | 2020-02-23 11:02 | MHC.CM.PN ---
NURSE STONEMASON HELPER NOTE PATIENT WILL BE DISCHARGED HOME TODAY DISCHARGE PLAN HOME WITH RESU,MPTION OF HER [facility] AND RESUMPTION OF HER [facility] PCP MISTY BRAVO [facility] [place] [place] [facility] stormsdcelio imm updated
[2020-02-23 11:27] VITALS: BP 113/69; PULSE 82; RESP 20; TEMP 36.3; O2SAT 98
--- NOTE | 2020-02-23 16:15 | P.DS_ITS ---
DS: Providers Provider Date of admission: 02/19/20 17:09 Primary care physician: Unknown Physician DS: Diagnosis Discharge Diagnosis (1) Pneumonia: Status: Acute (2) Chronic liver failure: Status: Acute (3) Advanced hepatic cirrhosis: Status: Acute (4) Anemia: Status: Acute (5) COPD (chronic obstructive pulmonary disease): Status: Acute (6) Hyponatremia: Status: Acute (7) Lactic acid acidosis: Status: Acute DS: Medications Discharge Medications Home Medications: Home Medications Medication Instructions Recorded Confirmed Xifaxan 550 mg PO BID 01/20/20 02/19/20 folic acid 1 mg PO DAILY 01/20/20 02/19/20 omeprazole 20 mg PO BID 01/20/20 02/19/20 potassium chloride 40 meq PO DAILY 01/20/20 02/19/20 risperidone 2 mg PO BEDTIME 01/20/20 02/19/20 Flovent HFA 2 puff INHALATION BID 02/09/20 02/19/20 albuterol sulfate 2 puff INHALATION Q4H PRN 02/09/20 02/19/20 calcium carbonate [Antacid Ext Str 1 tab PO TID PRN 02/09/20 02/19/20 (calcium carb)] thiamine HCl (vitamin B1) 100 mg PO DAILY 02/09/20 02/19/20 baclofen 10 mg PO QPM 02/13/20 02/19/20 cetirizine 10 mg PO DAILY 02/19/20 02/19/20 gabapentin 1 tab PO TID 02/19/20 02/19/20 glycerin (adult) 1 supp UT DAILY PRN 02/19/20 02/19/20 metformin 750 mg PO BEDTIME 02/19/20 02/19/20 pyridoxine (vitamin B6) 50 mg PO DAILY 02/19/20 02/19/20 Previous Rx's Medication Instructions Recorded amoxicillin-pot clavulanate 1 tab PO BID #4 tab 02/23/20 [Augmentin] lactulose 30 g PO TID #240 ml 02/23/20 spironolactone 50 mg PO DAILY #30 tab 02/23/20 torsemide 20 mg PO DAILY #30 tab 02/23/20 DS: Summary Hospital Course Hospital Course: history of presenting illness Chief Complaint: weakness, shortness of breath this is a 55-year-old female with a history of alcoholic liver cirrhosis presents to the emergency department with complaints shortness of breath and weakness. She was recently admitted under similar circumstances but wanted to be discharged on [birth year] as it was her birthday. She reports abdominal distension, shortness of breath beginning yesterday as well as increasing leg edema. Lab work was significant for anemia with an H/ H is 7.0/21.8 which is slightly below her baseline. In addition her ammonia level is elevated 86 and she had associated asterixis. The remainder of her labs were at her baseline. a unit of blood was ordered in the emergency department as well as lactulose and Lasix and admission was requested for further management. [facility] Medical History (Updated 02/13/20 @ 16:36 by MARYLU Aguilar) Anemia Anxiety Chronic back pain Cirrhosis Coagulopathy COPD (chronic obstructive pulmonary disease) Depression Diabetes 1.5, managed as type 2 Hyponatremia PTSD (post-traumatic stress disorder) Thrombocytopenia hospital course 55-year-old female with a history of alcoholic liver cirrhosis s/p TIPS, COPD, bipolar disorder, chronic back pain, diabetes and recent admissions for hepatic encephalopathy and hyponatremia who presented with shortness of breath and weakness found to have anemia, hepatic encephalopathy, and now sepsis and PNA Sepsis d/t PNA-- patient admitted with sepsis, all symptoms of sepsis has resolved patient initially treated with IV antibiotic now being discharged home on by mouth antibiotic to finish a total 7 day course of antibiotic hepatic encephalopathy- resolved ammonia level improved but remains elevated seems to be chronic, recommend to continue lactulose, 30 mg qid,continue rifaximin alcoholic liver cirrhosis with associated anemia, thrombocytopenia, coagulopathy and edema patient treated with IV Lasix due to significant anasarca, now being discharged home on Aldactone dose increased to 50 mg, torsemide dose increased to 40 mg, recommend to continue rifaximin patient sent to IR for paracentesis on 02/20/20 but not enough fluid found to be drained hypokalemia related to IV diuretics has been replaced and recommend to continue potassium supplement anemia--H/H is within baseline. chronic hyponatremia recommend fluid restriction, sodium improved to 137 thrombocytopenia related to liver disease, stable no active bleed noted coagulopathy related to liver disease. Got vit k on admission, repeat INR remains elevated 1.6 diabetes- recommended diabetic diet chronic back pain and toothache from recent tooth extraction recommend to continue gabapentin, and oxycodone Time Spent with Patient Time attestation: Total time spent providing and/or coordinating discharge services: Physical Exam Vital Signs: Vital Signs: Last Vital Signs Temp 97.3 F 02/23/20 11:27 Pulse 82 02/23/20 11:27 Resp 20 02/23/20 11:27 BP 113/69 02/23/20 11:27 Pulse Ox 98 02/23/20 11:27 Body Mass Index 38.8 General no acute distress. Neck is supple no JVD. CVS regular rate rhythm, Respiratory no respiratory distress, no wheeze, no rhonchi. Gastrointestinal abdomen soft, nontender, bowel sounds audible, no guarding , no rigidity. Extremities bilateral edema improved since admission. Neuro nonfocal , speech clear, steady gait. Skin no rash DS: Data Data Completed and Pending Completed studies during hospitalization [Text1]: Procedures Transfusion of Nonautologous Red Blood Cells into Peripheral Vein, Percutaneous Approach (02/13/20) Labs on day of discharge: 02/19/20 13:26 XR chest 1V Stat Albuterol Sulfate [Ventolin] 4 puff INHALE ONCE ONE Ipratropium Acton [Atrovent] 2 puff INHALE ONCE ONE 02/19/20 13:29 methylPREDNISolone Sod Succ/PF [SOLU-MedroL] 125 mg IVPUSH ONCE ONE 02/19/20 13:30 0.9 % Sodium Chloride [Ns] 1,000 ml IVCONT 999 mls/hr 02/19/20 13:43 Basic Metabolic Panel Stat Complete Blood Count Auto Diff Stat Lactic Acid Stat Liver Panel Stat Partial Thromboplastin Time Stat Prothrombin Time INR Stat 02/19/20 13:46 SARS-CoV2/FLU/RSV Stat 02/19/20 14:06 Azithromycin [Zithromax] 500 mg 0.9 % Sodium Chloride [Ns] 250 ml IV ONCE cefTRIAXone sodium [Rocephin] 2 gm 0.9 % Sodium Chloride [Ns] 50 ml IV ONCE 02/19/20 14:22 Azithromycin [Zithromax] 500 mg IV .STK-MED ONE 02/19/20 14:23 cefTRIAXone sodium [Rocephin] 2 gm .ROUTE .STK-MED ONE 02/19/20 14:58 Consult Rx Perform Med Rec 1 each MISCELLANE ONCE PRN 02/19/20 16:41 Lactulose [Chronulac] 30 gm PO ONCE ONE 02/19/20 17:03 Transfer Order Routine 02/19/20 17:07 Code Status Routine 02/19/20 17:45 Piperacillin Sodium/Tazobactam [Zosyn] 3.375 gm 0.9 % Sodium Chloride [Ns] 50 ml IV Q6H 02/19/20 17:47 Furosemide [Lasix] 40 mg IVPUSH ONCE ONE 02/19/20 17:47 Compression Therapy QSHIFT 02/19/20 17:53 Piperacillin Sodium/Tazobactam [Zosyn] 3.375 gm IV .STK-MED ONE 02/19/20 18:19 ~Lactic Acid-LAB USE ONLY Stat 02/19/20 19:48 Ammonia Stat 02/19/20 22:08 Albuterol Sulfate [Ventolin] 2 puff INHALE Q4H PRN Calcium Carbonate [Tums EX] 750 mg PO TID PRN Gabapentin [Neurontin] 600 mg PO TID Glycerin Adult [Adult Glycerin] 1 supp UT DAILY PRN Lactulose [Chronulac] 15 gm PO TID Omeprazole [PriLOSEC] 20 mg PO BID penicillin V potassium 500 mg PO QID rifAXIMin [Xifaxan] 550 mg PO BID risperiDONE [RisperDAL] 2 mg PO BEDTIME 02/19/20 22:08 IV insert/maintain Q4HR Intake and Output QSHIFTE Vital Signs QSHIFT 02/19/20 22:14 Ibuprofen [Motrin] 600 mg PO ONCE ONE 02/19/20 23:00 Phytonadione (Vit K1) Oral [Vitamin K Oral] 10 mg PO ONCE ONE 02/19/20 23:48 Piperacillin Sodium/Tazobactam [Zosyn] 3.375 gm IV .STK-MED ONE 02/20/20 00:00 0.9 % Sodium Chloride Flush [NS Flush] 3 ml IVFLUSH QSHIFT US abdomen limited Routine 02/20/20 03:30 Morphine Sulfate 1 mg IVPUSH ONCE ONE 02/20/20 05:31 Piperacillin Sodium/Tazobactam [Zosyn] 3.375 gm IV .STK-MED ONE 02/20/20 06:19 Ammonia DAILY Basic Metabolic Panel DAILY@0600 Complete Blood Count no Diff DAILY@0600 02/20/20 08:00 Fluticasone Propionate 250 [Flovent Diskus 250] 2 puff INHALE RBID 02/20/20 09:00 Folic Acid 1 mg PO DAILY Loratadine [Claritin] 10 mg PO DAILY Potassium Chloride ER [Klor-con] 40 meq PO DAILY Pyridoxine HCl (Vitamin B6) [Vitamin B-6] 50 mg PO DAILY Spironolactone [Aldactone] 25 mg PO DAILY Thiamine HCL [Vitamin B-1] 100 mg PO DAILY Torsemide [Demadex] 10 mg PO DAILY 02/20/20 09:40 Lactulose [Chronulac] 30 gm PO TID 02/20/20 Breakfast Diabetic Diet Furosemide [Lasix] 40 mg IVPUSH Q12H 02/20/20 10:54 Piperacillin Sodium/Tazobactam [Zosyn] 3.375 gm IV .STK-MED ONE 02/20/20 14:45 oxyCODONE HCl Immed Release [Roxicodone] 5 mg PO Q4H PRN 02/20/20 15:00 Lactulose [Chronulac] 30 gm PO TID 02/20/20 17:17 Piperacillin Sodium/Tazobactam [Zosyn] 3.375 gm IV .STK-MED ONE 02/20/20 21:00 Baclofen [Lioresal] 10 mg PO BEDTIME 02/20/20 21:20 Acetaminophen [Tylenol] 650 mg PO Q6H PRN 02/20/20 23:55 Piperacillin Sodium/Tazobactam [Zosyn] 3.375 gm IV .STK-MED ONE 02/21/20 04:58 Piperacillin Sodium/Tazobactam [Zosyn] 3.375 gm IV .STK-MED ONE 02/21/20 06:25 Ammonia DAILY Basic Metabolic Panel DAILY@0600 02/21/20 11:27 Lactulose [Chronulac] 30 gm PO NOW STA 02/21/20 11:46 Piperacillin Sodium/Tazobactam [Zosyn] 3.375 gm IV .STK-MED ONE 02/21/20 12:54 ondansetron HCL [Zofran] 4 mg IVPUSH Q8H PRN 02/21/20 17:03 Piperacillin Sodium/Tazobactam [Zosyn] 3.375 gm IV .STK-MED ONE 02/21/20 23:59 Piperacillin Sodium/Tazobactam [Zosyn] 3.375 gm IV .STK-MED ONE 02/22/20 06:07 Piperacillin Sodium/Tazobactam [Zosyn] 3.375 gm IV .STK-MED ONE 02/22/20 06:15 Ammonia Routine Basic Metabolic Panel DAILY@0600 Complete Blood Count no Diff DAILY@0600 Prothrombin Time INR DAILY@0600 02/22/20 11:45 Potassium Chloride ER [Klor-con] 40 meq PO ONCE ONE 02/22/20 13:25 Piperacillin Sodium/Tazobactam [Zosyn] 3.375 gm IV .STK-MED ONE 02/22/20 17:56 Piperacillin Sodium/Tazobactam [Zosyn] 3.375 gm IV .STK-MED ONE 02/22/20 23:38 Piperacillin Sodium/Tazobactam [Zosyn] 3.375 gm IV .STK-MED ONE 02/23/20 05:29 Piperacillin Sodium/Tazobactam [Zosyn] 3.375 gm IV .STK-MED ONE 02/23/20 06:13 Basic Metabolic Panel Routine 02/23/20 09:00 Spironolactone [Aldactone] 50 mg PO DAILY 02/23/20 11:00 Potassium Chloride ER [Klor-con] 40 meq PO ONCE ONE Laboratory Last Values WBC 7.6 X10*3/uL (4.8-10.8) 02/22/20 06:15 RBC 2.81 X10*6/uL (4.20-5.50) L 02/22/20 06:15 Hgb 8.9 g/dl (12.0-16.0) L 02/22/20 06:15 Hct 28.2 % (37-47) L 02/22/20 06:15 MCV 100.4 fL (80-98) H 02/22/20 06:15 MCH 31.7 pg (27.0-33.0) 02/22/20 06:15 MCHC 31.6 g/dl (31.0-35.0) 02/22/20 06:15 RDW 19.2 % (11.0-16.0) H 02/22/20 06:15 Plt Count 86 X10*3/uL (160-400) L D 02/22/20 06:15 MPV 11.0 fL (9.4-12.3) 02/22/20 06:15 Immature Gran % (Auto) 1.2 % (0.0-0.4) H 02/19/20 13:43 Neut % (Auto) 81.5 % (45-73) H 02/19/20 13:43 Lymph % (Auto) 5.9 % (20-40) L 02/19/20 13:43 [place] % (Auto) 9.2 % (2-11) 02/19/20 13:43 Eos % (Auto) 1.8 % (0-4) 02/19/20 13:43 Baso % (Auto) 0.4 % (0-2) 02/19/20 13:43 Lymph # (Auto) 0.8 X10*3/uL (1.2-4.9) L 02/19/20 13:43 [place] # (Auto) 1.2 X10*3/uL (0.1-1.2) 02/19/20 13:43 Eos # (Auto) 0.2 X10*3/uL (0.0-0.4) 02/19/20 13:43 Baso # (Auto) 0.1 X10*3/uL (0.0-0.2) 02/19/20 13:43 Abs Immat Gran (auto) 0.16 X10*3/uL (0.00-0.03) H 02/19/20 13:43 Absolute Neuts (auto) 10.8 X10*3/uL (2.0-8.3) H 02/19/20 13:43 Absolute Nucleated RBC 0.000 X10*3/uL (0.0-0.012) 02/22/20 06:15 Nucleated RBC % (auto) 0.0 /100WBC (0.0-0.2) 02/22/20 06:15 PT 19.4 SEC (10.8-13.0) H 02/22/20 06:15 INR 1.6 (0.9-1.1) H 02/22/20 06:15 APTT 48.2 SEC (24.1-38.0) H 02/19/20 13:43 Sodium 137 mmol/L (135-145) 02/23/20 06:13 Potassium 3.1 mmol/l (3.3-5.1) L 02/23/20 06:13 Chloride 100 mmol/L (96-108) 02/23/20 06:13 Carbon Dioxide 30 mmol/L (22-29) H 02/23/20 06:13 Anion Gap 10 (12-20) L 02/23/20 06:13 BUN 9 mg/dL (9-16) 02/23/20 06:13 Creatinine 0.78 mg/dL (0.5-1.4) 02/23/20 06:13 Estim Creat Clear Calc 90.3 02/23/20 06:13 Estimated GFR > 60 02/23/20 06:13 Random Glucose 126 mg/dL (60-115) H 02/23/20 06:13 Lactic Acid 2.2 mmol/L (0.5-2.0) H* 02/19/20 13:43 Lactic Acid Fup @ 2Hr 1.7 mmol/L (0.5-2.0) 02/19/20 18:19 Calcium 7.9 mg/dL (8.4-10.2) L 02/23/20 06:13 Total Bilirubin 5.4 mg/dL (0.0-1.0) H 02/19/20 13:43 Direct Bilirubin 2.3 mg/dL (0.0-0.5) H 02/19/20 13:43 AST 45 U/L (5-31) H 02/19/20 13:43 ALT 17 U/L (0-31) 02/19/20 13:43 Alkaline Phosphatase 123 U/L (39-117) H 02/19/20 13:43 Ammonia 78 umol/L (13-55) H 02/22/20 06:15 Total Protein 5.2 g/dL (6.5-8.0) L 02/19/20 13:43 Albumin 2.3 g/dL (3.5-5.0) L 02/19/20 13:43 Coronavirus (PCR) NEGATIVE (Negative) 02/19/20 13:46 Influenza Type A (PCR) NEGATIVE (Negative) 02/19/20 13:46 Influenza Type B (PCR) NEGATIVE (Negative) 02/19/20 13:46 RSV RNA Qual (PCR) NEGATIVE (Negative) 02/19/20 13:46 Preliminary micro results at discharge 02/19/20 14:05 Blood Culture - Preliminary Blood - Venous No growth after 48 hours. 02/19/20 13:43 Blood Culture - Preliminary Blood - Venous No growth after 48 hours. Discharge Plan Discharge Patient Disposition: Home Health Service Referrals: [facility] [Outside] - 1 Day (DISCHARGED HOME WITH [facility] OF [facility] VISITING NURSE FOR NURSING HAS VICE PRESIDENT OF NURSING PCP NUVIA BAGLEY AT [facility] DISCHARGE FOLLOW UP) Nuvia Bagley, RADIATION TECHNICIAN [Nurse Practitioner] - 1 Week ([facility] nurse will call you with a follow up appointment.) Discharge Medications: New spironolactone 25 mg Tablet 50 mg PO DAILY Qty: 30 RF: 0 lactulose 20 gram/30 mL Solution 30 g PO TID Qty: 240 RF: 0 torsemide 20 mg tablet 20 mg PO DAILY Qty: 30 RF: 0 amoxicillin-pot clavulanate [Augmentin] 875-125 mg tablet 1 tab PO BID Qty: 4 RF: 0 Continued potassium chloride 20 mEq tablet,ER particles/crystals 40 meq PO DAILY RF: 0 folic acid 1 mg tablet 1 mg PO DAILY RF: 0 Xifaxan 550 mg tablet 550 mg PO BID RF: 0 omeprazole 20 mg Capsule,Delayed Release(Dr/Ec) 20 mg PO BID RF: 0 risperidone 1 mg tablet 2 mg PO BEDTIME RF: 0 thiamine HCl (vitamin B1) 100 mg tablet 100 mg PO DAILY RF: 0 calcium carbonate [Antacid Ext Str (calcium carb)] 300 mg (750 mg) tablet,chewable 1 tab PO TID PRN (Reason: Heartburn) RF: 0 Flovent HFA 220 mcg/actuation HFA aerosol inhaler 2 puff inhalation BID RF: 0 albuterol sulfate 90 mcg/actuation HFA aerosol inhaler 2 puff inhalation Q4H PRN (Reason: Shortness Of Breath) RF: 0 baclofen 10 mg tablet 10 mg PO QPM RF: 0 gabapentin 600 mg tablet 1 tab PO TID RF: 0 cetirizine 10 mg tablet 10 mg PO DAILY RF: 0 pyridoxine (vitamin B6) 50 mg tablet 50 mg PO DAILY RF: 0 metformin 750 mg tablet extended release 24 hr 750 mg PO BEDTIME RF: 0 glycerin (adult) Suppository 1 supp UT DAILY PRN (Reason: Constipation) RF: 0 Discontinued lactulose 10 gram/15 mL (15 mL) Solution 15 g PO TID RF: 0 spironolactone 25 mg Tablet 25 mg PO DAILY Qty: 30 RF: 0 torsemide 20 mg Tablet 10 mg PO DAILY 30 Days Qty: 15 RF: 0 penicillin V potassium 500 mg tablet 500 mg PO QID RF: 0 Discharge Orders: Discharge Order (Routine); Ordered 02/23/20 Ordered By: Tad Xiong Diet: diabetic diet Activity on Discharge: As tolerated Discharge Date/Time: 02/23/20 12:22 Visit Report Forms: Patient Portal Discharge page Care Plan Goals: Limit fluid intake to 1.5 L take all medications as prescribed including lactulose and diuretics Health Concerns: take all medications as prescribed Plan of Treatment: follow-up with primary care physician.
== END 2020-02-23 12:22 | disposition home health service (06) | DRG 871 ==
LOC: HO.ED 14:56 → HO.S3 19:36
PROVIDERS: Admitting Provider Internal Medicine; Emergency Provider Emergency Medicine; Visit Provider Hospitalist
DX: A41.9 Sepsis, unspecified organism (principal); J18.1 Lobar pneumonia, unspecified organism; D68.9 Coagulation defect, unspecified; E87.1 Hypo-osmolality and hyponatremia; K72.10 Chronic hepatic failure without coma; D50.0 Iron deficiency anemia secondary to blood loss (chronic); K70.30 Alcoholic cirrhosis of liver without ascites; F17.210 Nicotine dependence, cigarettes, uncomplicated; Z71.6 Tobacco abuse counseling; D69.6 Thrombocytopenia, unspecified; E66.9 Obesity, unspecified; G89.29 Other chronic pain; Z68.38 Body mass index [BMI] 38.0-38.9, adult; Z20.828 Contact with and (suspected) exposure to other viral communicable diseases; Z88.2 Allergy status to sulfonamides; Z79.51 Long term (current) use of inhaled steroids; Z79.84 Long term (current) use of oral hypoglycemic drugs; Z79.899 Other long term (current) drug therapy
CPT/HCPCS: 0241U; 36415; 71045; 76705; 80048; 80076; 82140; 83605; 85025; 85027; 85610; 85730; 87040; 94640; 96361; 96365; 96366; 96375; 99285; 99291; J0456; J0696; J1940; J2270; J2543; J2930; J3430

== ENCOUNTER 2020-02-26 04:18 | Inpatient (IN) | payer OTHER, SELFPAY ==
[2020-02-26] VITALS (9 sets, daily range): BP systolic 104–152; BP diastolic 35–72; PULSE 71–104; RESP 12–20; TEMP 36.4–36.6; O2SAT 94–100; BMI 40.1
--- NOTE | 2020-02-26 | XR_ITS ---
EXAMINATION: XR CHEST CLINICAL INFORMATION: Seizure COMPARISON: 02/19/2020 TECHNIQUE: Frontal view of the chest was obtained. FINDINGS: Cardiomegaly and pulmonary venous congestion. Bilateral perihilar streaky airspace opacities. No large pleural effusion. No pneumothorax. No acute or suspicious osseous abnormalities. XR/XR chest 1V IMPRESSION: There is cardiomegaly and pulmonary venous congestion without overt edema. Bilateral perihilar streaky airspace opacities, more pronounced within the lower lungs. This could represent a multifocal pneumonia or atelectasis and mild edema.
--- NOTE | 2020-02-26 | ECG_ITS ---
Test Reason : SEIZURE Blood Pressure : / mmHG Vent. Rate : 092 BPM Atrial Rate : 092 BPM P-R Int : 134 ms QRS Dur : 082 ms QT Int : 388 ms P-R-T Axes : 057 047 034 degrees QTc Int : 479 ms Artifact in tracing Normal sinus rhythm Possible Left atrial enlargement Borderline ECG When compared with ECG of 09-FEB-2020 15:50, No significant change was found Referred By: Hugo Khan Electronically Signed By:ALEX CAVANAUGH
[2020-02-26] MEDS: LORazepam 2 MG/ML VIAL 1 MG IVPUSH (04:42)
[2020-02-26 04:47] LABS: Basophils Percent Auto 0.7 % (0-2); Eosinophils Absolute Auto 0.2 X10*3/uL (0.0-0.4); Eosinophils Percent Auto 3.9 % (0-4); Hematocrit 32.5 % (37-47); Hemoglobin 10.2 g/dl (12.0-16.0); Imm Gran Abs Auto 0.03 X10*3/uL (0.00-0.03); Imm Gran Pct Auto 0.5 % (0.0-0.4); Lymphocytes Absolute Auto 0.5 X10*3/uL (1.2-4.9); Lymphocytes Percent Auto 9.2 % (20-40); Mean Corpuscular HGB Conc 31.4 g/dl (31.0-35.0); Mean Corpuscular Hemoglobin 32.1 pg (27.0-33.0); Mean Corpuscular Volume 102.2 fL (80-98); Mean Platelet Volume 10.7 fL (9.4-12.3); Monocytes Absolute Auto 0.6 X10*3/uL (0.1-1.2); Monocytes Percent Auto 10.7 % (2-11); Neutrophils Absolute Auto 4.3 X10*3/uL (2.0-8.3); Red Blood Count 3.18 X10*6/uL (4.20-5.50); Red Cell Distribution Width 18.6 % (11.0-16.0); SCAN SMEAR FLAG 1; White Blood Count 5.7 X10*3/uL (4.8-10.8)
[2020-02-26 04:48] LABS: MANUAL DIFF FLAG NO
--- NOTE | 2020-02-26 04:48 | CT_ITS ---
EXAMINATION: CT HEAD WITHOUT CONTRAST CLINICAL INFORMATION: Altered mental status COMPARISON: None TECHNIQUE: Contiguous axial imaging was performed from the skull base to vertex without intravenous administration of contrast. This CT examination was performed using dose optimization techniques as appropriate, variously including the following: *Automated exposure control *Adjustment of mA and/or kV according to patient size (this includes techniques or standardized protocols for targeted exams where dose is matched to indication/reason for exam; i.e. extremities or head) *Use of iterative reconstruction technique DLP: 1311 mGy-cm FINDINGS: There is no evidence of acute intracranial hemorrhage or territorial infarction. No abnormal mass effect or midline shift is seen. [place] to white matter differentiation is well preserved. No extra-axial fluid collections are identified. The ventricles are normal in size. There is no abnormal attenuation within the brain parenchyma. The osseous structures and soft tissues are normal. The mastoid air cells and visualized portions of the paranasal sinuses are well aerated. CT/CT head/brain wo con IMPRESSION: No acute intracranial pathology.
[2020-02-26 04:52] LABS: Platelet Count 73 X10*3/uL (160-400)
--- NOTE | 2020-02-26 04:56 | PC.NURSE ---
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 PT CAME INTO ER CONFUSED, NOT FOLLOWING COMMANDS BUT AWAKE AND ALERT. PT STOPPED TALKING, LOOKED TO HER RIGHT AND SEIZURE ACTIVITY BEGAN WITH OCCULAR MOVEMENT. PROGRESSED TO HEAVY BREATHING AND FACIAL INVOLVEMENT. BODY BECAME STIFF. MD AT BEDSIDE IMMEDIATELY, PT RECEIVED 1 MG ATIVAN. POC 133, PT PLACED ON NRB MASK AT 15 LPM. ORAL SECRETIONS SUCTIONED. PT HAD SMALL AMOUT OF BLOOD IN MOUTH UPON ARRIVAL FROM EMS. NO UPPER TEETH WHEN EXAMINED MOUTH, NO OBVIOUS LACERATION TO TONGUE.
[2020-02-26 05:01] LABS: Glucose, Whole Blood 134 mg/dL (60-115)
[2020-02-26 05:14] LABS: Ammonia 185 umol/L (13-55)
--- NOTE | 2020-02-26 05:25 | PC.NURSE ---
pt had second possible seizure witnessed by callisthenics instructor while on table. again, lasting less than 1 minute with urinary incontinence.
[2020-02-26 05:26] LABS: Alanine Aminotransferase 18 U/L (0-31); Albumin Level 2.5 g/dL (3.5-5.0); Alkaline Phosphatase 129 U/L (39-117); Anion Gap 19 (12-20); Aspartate Amino Transferase 70 U/L (5-31); Bilirubin Total 3.6 mg/dL (0.0-1.0); Blood Urea Nitrogen 10 mg/dL (9-16); Calcium 7.8 mg/dL (8.4-10.2); Carbon Dioxide 23 mmol/L (22-29); Chloride 98 mmol/L (96-108); Creatinine Clr Calc Pharmacy 67.1; Estimated Glomerular Filt Rate 54; Glucose Random 127 mg/dL (60-115); Lipase 20 U/L (8-78); Potassium 4.3 mmol/l (3.3-5.1); Sodium 136 mmol/L (135-145); Total Protein 5.9 g/dL (6.5-8.0)
[2020-02-26] MEDS: Lactulose 20 GM/30 ML SOLUTION 30 GM PO ×4 (05:45→20:37)
[2020-02-26] MEDS: ondansetron HCL 4 MG/2 ML VIAL IVPUSH (05:45)
[2020-02-26 06:08] LABS: B Type Natriuretic Peptide 193 pg/mL (<100)
--- NOTE | 2020-02-26 06:20 | PC.NURSE ---
pt able to tolerate lactulose p.o.
[2020-02-26 06:33] LABS: COVID-19 Test Negative (Negative)
--- NOTE | 2020-02-26 07:06 | PC.NURSE ---
REPORT TAKEN FROM PARVIZ CONDE. PT SLEEPING AT THIS TIME ON STRETCHER. VITALS UPDATED. WAITIN RE EVAL FROM PROVIDER.
--- NOTE | 2020-02-26 07:19 | ED.GENADULT ---
HPI - General Adult General Chief complaint: General Medical Stated complaint: altered mental status Time Seen by Provider: 02/26/20 04:48 Source: EMS Mode of arrival: EMS Limitations: altered mental status History of Present Illness HPI narrative: 55-year-old female who was brought to emergency department for evaluation of altered level of consciousness. Information came from EMS since the patient was altered and unable to give a history. Apparently the patient rolled out of bed and was not responding. She has had increased confusion over the past 2-3 days. The patient [place] [facility] [place] for pneumonia and hepatic encephalopathy. In the emergency department, the patient had a tremulous shaking episode which appear to be consistent with a seizure and she had a 2nd episode while she was getting a CAT scan. No other information is available the patient's presentation. Related Data Home Medications Medication Instructions Recorded Confirmed Xifaxan 550 mg PO BID 01/20/20 02/26/20 folic acid 1 mg PO DAILY 01/20/20 02/26/20 omeprazole 20 mg PO BID 01/20/20 02/26/20 potassium chloride 40 meq PO DAILY 01/20/20 02/26/20 risperidone 2 mg PO BEDTIME 01/20/20 02/26/20 Flovent HFA 2 puff INHALATION BID 02/09/20 02/26/20 albuterol sulfate 2 puff INHALATION Q4H PRN 02/09/20 02/26/20 calcium carbonate [Antacid Ext Str 1 tab PO TID PRN 02/09/20 02/26/20 (calcium carb)] thiamine HCl (vitamin B1) 100 mg PO DAILY 02/09/20 02/26/20 baclofen 10 mg PO QPM 02/13/20 02/19/20 cetirizine 10 mg PO DAILY 02/19/20 02/26/20 gabapentin 600 mg PO TID 02/19/20 02/26/20 glycerin (adult) 1 supp NM DAILY PRN 02/19/20 02/26/20 metformin 750 mg PO BEDTIME 02/19/20 02/26/20 pyridoxine (vitamin B6) 50 mg PO DAILY 02/19/20 02/26/20 tiotropium-olodaterol [Stiolto 2 puff INHALATION DAILY 02/26/20 02/26/20 Respimat] Previous Rx's Medication Instructions Recorded lactulose 30 g PO TID #240 ml 02/23/20 spironolactone 50 mg PO DAILY #30 tab 02/23/20 torsemide 20 mg PO DAILY #30 tab 02/23/20 Allergies Allergy/AdvReac Type Severity Reaction Status Date / Time lamotrigine [From LAMICTAL] Allergy Intermediate RASH Verified 02/26/20 04:34 amoxicillin [AMOXICILLIN] Allergy Unknown NAUSEA & Verified 02/26/20 04:34 VOMITING Iodinated Contrast Media Allergy Unknown ANAPHYLAXIS Verified 02/26/20 04:34 [CONTRAST, IV] Sulfa (Sulfonamide Allergy Unknown UNKNOWN Verified 02/26/20 04:34 Antibiotics) [SULFA (SULFONAMIDE ANTIBIOTICS)] sulfamethoxazole Allergy Unknown UNK Verified 02/26/20 04:34 [From BACTRIM] trimethoprim [From BACTRIM] Allergy Unknown UNK Verified 02/26/20 04:34 Review of Systems Review of Systems: Yes Unobtainable due to mental status Neurologic: Reports confusion Psychiatric: Psychiatric: Reports confusion PMFSH Past Medical History Medical History Anemia Anemia Anxiety Chronic back pain Chronic hyponatremia Cirrhosis Coagulopathy Congestive heart failure COPD (chronic obstructive pulmonary disease) Depression Diabetes 1.5, managed as type 2 Hyponatremia Liver disease Pneumonia PTSD (post-traumatic stress disorder) Thrombocytopenia Surgical History History of cholecystectomy Previous back surgery S/P TIPS (transjugular intrahepatic portosystemic shunt) Family History Family History Other HTN (hypertension) Social History Social History Household Members: Significant Other Housing: Apartment Alcohol intake: former Smoking Status: Current every day smoker Tobacco Type: Cigarette Packs Per Day: 0.5 Cigarettes Per Day: 0.5 Second Hand Smoke Exposure: No Substance Use Type: Marijuana Advance Directives: No service: No Current occupational status: unemployed Physical Exam Vital Signs: Vital Signs: Last Vital Signs Temp 97.7 F 02/26/20 04:35 Pulse 80 02/26/20 07:06 Resp 15 02/26/20 07:06 BP 132/60 02/26/20 07:06 Pulse Ox 100 02/26/20 07:06 Body Mass Index 40.1 Const: General: confusion and ill appearing Nutritional Appearance: obese Orientation/consciousness: confusion Limitations: altered mental status HENMT: Head: Yes normal to inspection, Yes No palpable skull fracture present and Yes normocephalic Ears: hearing grossly normal bilaterally General nose exam: Normal external nose present Face and sinus: Yes normal facial exam Mouth: Normal oral and palatal mucosa present Throat: Yes posterior oropharynx normal Eyes: General: appearance normal, both eyes and all related structures Periorbital: periorbital findings normal Eyelids: Yes eyelids normal Conjunctivae: conjunctivae normal Sclerae: scleral abnormal (Icteric) Pupils: Equal, round and reactive pupils present Neck: Neck: Yes normal visual inspection and Yes no lymphadenopathy Chest: Chest palpation & inspection: normal inspection of the chest and normal palpation of entire chest wall Resp: Effort & Inspection: normal respiratory effort Auscultation: clear to auscultation bilaterally, no crackles, no rales and no rhonchi Cardio: Rhythm: regular rhythm Heart sounds: S1 normal heart sound present, S2 normal heart sound present and no murmurs GI: Inspection: Yes other (Obese) Palpation (GI): Soft to palpation and nontender Auscultation: normal bowel sounds : General: Yes no CVA tenderness Back/Spine/Pelvis: Back: no CVA tenderness Skin: General skin exam: jaundice and other Neuro: General: confusion Cranial nerves: Yes Equal, round and reactive pupils present Course Course Course Narrative: 55-year-old female who was brought to emergency department for evaluation of altered level of consciousness which has gotten progressively worse over the past 2-3 days. On presentation the patient appeared to be encephalopathic. The patient did have 2 shaking episodes which did appear to be consistent with seizures or may have been related to her encephalopathy. The seizure stopped the treatment and she was given Ativan 1 mg IV. I do not think the patient needs an antiseizure medication at this time and correcting her encephalopathy may prevent her from having an another seizure like event. The patient's CT scan of the head revealed no acute fracture or bleed. Chest x-ray revealed cardiomegaly with increased interstitial infiltrates but I do not think that she has pneumonia. Laboratory evaluation [place] [address] which is chronic, elevated AST and a markedly elevated ammonia level of 184. The potassium was normal at 4.3. I will discuss admitting this patient with the hospitalist for further management of hepatic encephalopathy. 0811: I did discuss the patient's presentation with the covering hospitalist Dr Menjivar and the patient will be managed on [facility] [place]. Medical Decision Making Lab Data Result diagrams: 02/26/20 04:40 02/26/20 04:40 Labs: Lab Results 02/26/20 02/26/20 02/26/20 Range/Units 04:40 04:40 04:40 WBC 5.7 (4.8-10.8) X10*3/uL RBC 3.18 L (4.20-5.50) X10*6/uL Hgb 10.2 L (12.0-16.0) g/dl Hct 32.5 L (37-47) % MCV 102.2 H (80-98) fL MCH 32.1 (27.0-33.0) pg MCHC 31.4 (31.0-35.0) g/dl RDW 18.6 H (11.0-16.0) % Plt Count 73 L (160-400) X10*3/uL MPV 10.7 (9.4-12.3) fL Immature Gran % (Auto) 0.5 H (0.0-0.4) % Neut % (Auto) 75.0 H (45-73) % Lymph % (Auto) 9.2 L (20-40) % [place] % (Auto) 10.7 (2-11) % Eos % (Auto) 3.9 (0-4) % Baso % (Auto) 0.7 (0-2) % Lymph # (Auto) 0.5 L (1.2-4.9) X10*3/uL [place] # (Auto) 0.6 (0.1-1.2) X10*3/uL Eos # (Auto) 0.2 (0.0-0.4) X10*3/uL Baso # (Auto) 0.0 (0.0-0.2) X10*3/uL Abs Immat Gran (auto) 0.03 (0.00-0.03) X10*3/uL Absolute Neuts (auto) 4.3 (2.0-8.3) X10*3/uL Absolute Nucleated RBC 0.000 (0.0-0.012) X10*3/uL Nucleated RBC % (auto) 0.0 (0.0-0.2) /100WBC Hold Blue Top SEE NOTE Sodium 136 (135-145) mmol/L Potassium 4.3 D (3.3-5.1) mmol/l Chloride 98 (96-108) mmol/L Carbon Dioxide 23 (22-29) mmol/L Anion Gap 19 (12-20) BUN 10 (9-16) mg/dL Creatinine 1.07 (0.5-1.4) mg/dL Estim Creat Clear Calc 67.1 Estimated GFR 54 POC Glucose (60-115) mg/dL Random Glucose 127 H (60-115) mg/dL Calcium 7.8 L (8.4-10.2) mg/dL Total Bilirubin 3.6 H (0.0-1.0) mg/dL AST 70 H (5-31) U/L ALT 18 (0-31) U/L Alkaline Phosphatase 129 H (39-117) U/L Ammonia (13-55) umol/L B-Natriuretic Peptide (<100) pg/mL Total Protein 5.9 L (6.5-8.0) g/dL Albumin 2.5 L (3.5-5.0) g/dL Lipase 20 (8-78) U/L COVID-19 (GIOVANI) (Negative) COVID-19 Clin Com 02/26/20 02/26/20 02/26/20 Range/Units 04:40 04:41 04:49 WBC (4.8-10.8) X10*3/uL RBC (4.20-5.50) X10*6/uL Hgb (12.0-16.0) g/dl Hct (37-47) % MCV (80-98) fL MCH (27.0-33.0) pg MCHC (31.0-35.0) g/dl RDW (11.0-16.0) % Plt Count (160-400) X10*3/uL MPV (9.4-12.3) fL Immature Gran % (Auto) (0.0-0.4) % Neut % (Auto) (45-73) % Lymph % (Auto) (20-40) % [place] % (Auto) (2-11) % Eos % (Auto) (0-4) % Baso % (Auto) (0-2) % Lymph # (Auto) (1.2-4.9) X10*3/uL [place] # (Auto) (0.1-1.2) X10*3/uL Eos # (Auto) (0.0-0.4) X10*3/uL Baso # (Auto) (0.0-0.2) X10*3/uL Abs Immat Gran (auto) (0.00-0.03) X10*3/uL Absolute Neuts (auto) (2.0-8.3) X10*3/uL Absolute Nucleated RBC (0.0-0.012) X10*3/uL Nucleated RBC % (auto) (0.0-0.2) /100WBC Hold Blue Top Sodium (135-145) mmol/L Potassium (3.3-5.1) mmol/l Chloride (96-108) mmol/L Carbon Dioxide (22-29) mmol/L Anion Gap (12-20) BUN (9-16) mg/dL Creatinine (0.5-1.4) mg/dL Estim Creat Clear Calc Estimated GFR POC Glucose 134 H (60-115) mg/dL Random Glucose (60-115) mg/dL Calcium (8.4-10.2) mg/dL Total Bilirubin (0.0-1.0) mg/dL AST (5-31) U/L ALT (0-31) U/L Alkaline Phosphatase (39-117) U/L Ammonia 185 H (13-55) umol/L B-Natriuretic Peptide 193 H (<100) pg/mL Total Protein (6.5-8.0) g/dL Albumin (3.5-5.0) g/dL Lipase (8-78) U/L COVID-19 (GIOVANI) (Negative) COVID-19 Clin Com 02/26/20 Range/Units 05:53 WBC (4.8-10.8) X10*3/uL RBC (4.20-5.50) X10*6/uL Hgb (12.0-16.0) g/dl Hct (37-47) % MCV (80-98) fL MCH (27.0-33.0) pg MCHC (31.0-35.0) g/dl RDW (11.0-16.0) % Plt Count (160-400) X10*3/uL MPV (9.4-12.3) fL Immature Gran % (Auto) (0.0-0.4) % Neut % (Auto) (45-73) % Lymph % (Auto) (20-40) % [place] % (Auto) (2-11) % Eos % (Auto) (0-4) % Baso % (Auto) (0-2) % Lymph # (Auto) (1.2-4.9) X10*3/uL [place] # (Auto) (0.1-1.2) X10*3/uL Eos # (Auto) (0.0-0.4) X10*3/uL Baso # (Auto) (0.0-0.2) X10*3/uL Abs Immat Gran (auto) (0.00-0.03) X10*3/uL Absolute Neuts (auto) (2.0-8.3) X10*3/uL Absolute Nucleated RBC (0.0-0.012) X10*3/uL Nucleated RBC % (auto) (0.0-0.2) /100WBC Hold Blue Top Sodium (135-145) mmol/L Potassium (3.3-5.1) mmol/l Chloride (96-108) mmol/L Carbon Dioxide (22-29) mmol/L Anion Gap (12-20) BUN (9-16) mg/dL Creatinine (0.5-1.4) mg/dL Estim Creat Clear Calc Estimated GFR POC Glucose (60-115) mg/dL Random Glucose (60-115) mg/dL Calcium (8.4-10.2) mg/dL Total Bilirubin (0.0-1.0) mg/dL AST (5-31) U/L ALT (0-31) U/L Alkaline Phosphatase (39-117) U/L Ammonia (13-55) umol/L B-Natriuretic Peptide (<100) pg/mL Total Protein (6.5-8.0) g/dL Albumin (3.5-5.0) g/dL Lipase (8-78) U/L COVID-19 (GIOVANI) Negative (Negative) COVID-19 Clin Com See Note ECG Data Attestation: I personally reviewed and interpreted this ECG as follows: Interpretation: Sinus rhythm with a rate of 92, normal NM interval, prolonged QTC interval 470 milliseconds, inverted T-waves in lead V1, no ST segment elevation or depression, no old EKG for comparison Discharge Plan Discharge Prescriptions: No Action potassium chloride 20 mEq tablet,ER particles/crystals 40 meq PO DAILY RF: 0 folic acid 1 mg tablet 1 mg PO DAILY RF: 0 Xifaxan 550 mg tablet 550 mg PO BID RF: 0 omeprazole 20 mg Capsule,Delayed Release(Dr/Ec) 20 mg PO BID RF: 0 risperidone 1 mg tablet 2 mg PO BEDTIME RF: 0 thiamine HCl (vitamin B1) 100 mg tablet 100 mg PO DAILY RF: 0 calcium carbonate [Antacid Ext Str (calcium carb)] 300 mg (750 mg) tablet,chewable 1 tab PO TID PRN (Reason: Heartburn) RF: 0 Flovent HFA 220 mcg/actuation HFA aerosol inhaler 2 puff inhalation BID RF: 0 albuterol sulfate 90 mcg/actuation HFA aerosol inhaler 2 puff inhalation Q4H PRN (Reason: Shortness Of Breath) RF: 0 baclofen 10 mg tablet 10 mg PO QPM RF: 0 gabapentin 600 mg tablet 600 mg PO TID RF: 0 cetirizine 10 mg tablet 10 mg PO DAILY RF: 0 pyridoxine (vitamin B6) 50 mg tablet 50 mg PO DAILY RF: 0 metformin 750 mg tablet extended release 24 hr 750 mg PO BEDTIME RF: 0 glycerin (adult) Suppository 1 supp NM DAILY PRN (Reason: Constipation) RF: 0 spironolactone 25 mg Tablet 50 mg PO DAILY Qty: 30 RF: 0 lactulose 20 gram/30 mL Solution 30 g PO TID Qty: 240 RF: 0 torsemide 20 mg tablet 20 mg PO DAILY Qty: 30 RF: 0 Stiolto Respimat 2.5-2.5 mcg/actuation mist 2 puff inhalation DAILY RF: 0
[2020-02-26 10:25] LABS: INTERNATIONAL NORM RATIO 1.6 (0.9-1.1); Prothrombin Time 19.3 SEC (10.8-13.0)
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
--- NOTE | 2020-02-26 12:34 | PM.EVENT ---
Event Note Date of Service: 02/26/20 Event Note: Addendum to H and P by Mid-level Provider I saw and examined the patient and participated in the queen portion of the E/M service. I agree with the history and exam as documented by . Patient presents with recurrent confusion from hepatic encephalopathy, high ammonia and likely not taken her med. By the time I saw her she was awake, alert oriented x 3. She states that she had fallen from her legs given out. exam: A and oriented x 3, sclera icteris. Abdomen is soft, nontender. Will admit for hepatic encephalopathy and treatment with lactulose work up. Otherwise, I agree with assessment and plan as outlined in the H and P.
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
[2020-02-26] MEDS: oxyCODONE HCl Immed Release 5 MG TABLET PO ×2 (16:11→22:47)
[2020-02-26] MEDS: 0.9 % Sodium Chloride Flush 3 ML SYRINGE IVFLUSH (16:13)
[2020-02-26 16:26] LABS: Glucose, Whole Blood 113 mg/dL (60-115)
[2020-02-26] MEDS: Fluticasone Propionate 250 MCG BLST.W.DEV 2 PUFF INHALE (20:23)
[2020-02-26 20:31] LABS: Glucose, Whole Blood 123 mg/dL (60-115)
[2020-02-26] MEDS: Acetaminophen 325 MG TABLET 650 MG PO (20:36)
[2020-02-26] MEDS: rifAXIMin 550 MG TABLET PO (20:36)
[2020-02-26] MEDS: risperiDONE 2 MG TABLET PO (22:47)
[2020-02-27] VITALS (8 sets, daily range): BP systolic 91–139; BP diastolic 46–66; PULSE 70–82; RESP 16–20; TEMP 36–36.6; O2SAT 92–98
[2020-02-27] MEDS: 0.9 % Sodium Chloride Flush 3 ML SYRINGE IVFLUSH ×3 (00:45→15:47)
[2020-02-27 02:56] LABS: Glucose, Whole Blood 107 mg/dL (60-115)
[2020-02-27] MEDS: Acetaminophen 325 MG TABLET 650 MG PO (04:19)
[2020-02-27] MEDS: Omeprazole 20 MG CAPSULE.DR PO ×2 (05:43→15:47)
[2020-02-27] MEDS: oxyCODONE HCl Immed Release 5 MG TABLET PO ×3 (05:43→20:11)
[2020-02-27 06:24] LABS: Ammonia 38 umol/L (13-55)
[2020-02-27] MEDS: Fluticasone Propionate 250 MCG BLST.W.DEV 2 PUFF INHALE (07:30)
[2020-02-27 08:15] LABS: Glucose, Whole Blood 102 mg/dL (60-115)
--- NOTE | 2020-02-27 08:45 | HO.PM.IMPN ---
Subjective Subjective Date of Service: 02/27/20 Interval History: Seen in follow-up for HIPEC encephalopathy and seizures. She has no further seizures, she is somnolent but easily aroused. Review of Systems Gen: no fever Resp: no sob, no cough CV: no chest, no SHANNON, no leg edema GI: No n/v, no abd pain Neuro: No confusion Physical Exam Vital Signs: Vital Signs: Last Vital Signs Temp 97.5 F 02/27/20 04:00 Pulse 82 02/27/20 07:31 Resp 20 02/27/20 04:00 BP 120/66 02/27/20 07:46 Pulse Ox 93 02/27/20 04:00 Body Mass Index 40.1 Const: Other: General: AO X 3, no acute distress Resp: CTA bilateral, normal resp effor CVS: S1,S2,RRR GI: +BS, NT, no distention Skin: No rash, jaundice Neuro: motor grossly intact Psych: appropriate affect Objective Data Current Medications Generic Name Dose Route Start Last Admin Trade Name Freq PRN Reason Stop Dose Admin Acetaminophen 650 mg 02/26/20 18:33 02/27/20 04:19 Acetaminophen 325 Mg Tablet PO 650 mg Q8H PRN Administration Pain, Mild (Pain Scale 1-3) Albuterol Sulfate 2 puff 02/26/20 15:04 Albuterol Sulfate 90 Mcg 8 Gm Inhaler INHALE Q4H PRN Shortness Of Breath Calcium Carbonate 375 mg 02/26/20 15:04 Calcium Carbonate 750 Mg Tab.Chew PO TID PRN Heartburn Fluticasone Propionate 2 puff 02/26/20 21:00 02/27/20 07:30 Fluticasone Propionate 250 Mcg Blst.W.Dev INHALE 2 puff BID LILLI Administration Folic Acid 1 mg 02/27/20 09:00 Folic Acid 1 Mg Tablet PO DAILY LILLI Glycerin 1 supp 02/26/20 15:04 Glycerin Adult Supp.Rect HI DAILY PRN Constipation Insulin Human Lispro 0 unit 02/26/20 15:04 02/27/20 08:19 Insulin Lispro 100 Unit/Ml 3 Ml Vial SUBCUT Not Given QIDACHS [facility] Protocol Lactulose 30 gm 02/26/20 10:15 02/26/20 20:37 Lactulose 20 Gm/30 Ml Solution PO 30 gm TID LILLI Administration Non-Formulary Medication 2 puff 02/27/20 09:00 Tiotropium-Olodaterol [Stiolto Respimat] INHALE DAILY [facility] Omeprazole 20 mg 02/27/20 06:30 02/27/20 05:43 Omeprazole 20 Mg Capsule.Dr PO 20 mg BID@0630,1430 LILLI Administration Oxycodone HCl 5 mg 02/26/20 15:44 02/27/20 05:43 Oxycodone Hcl Immed Release 5 Mg Tablet PO 5 mg Q6H PRN Administration Pain, Severe (Pain Scale 7-10) Pharmacy Consult 1 each 02/26/20 05:18 Consult Rx Perform Med Rec MISCELLANE ONCE PRN Consult order Potassium Chloride 40 meq 02/27/20 09:00 Potassium Chloride Er 20 Meq Tab.Er.Prt PO DAILY [facility] Pyridoxine HCl 50 mg 02/27/20 09:00 Pyridoxine Hcl (Vitamin B6) 50 Mg Tablet PO DAILY [facility] Rifaximin 550 mg 02/26/20 21:00 02/26/20 20:36 Rifaximin 550 Mg Tablet PO 550 mg BID LILLI Administration Risperidone 2 mg 02/26/20 21:00 02/26/20 22:47 Risperidone 2 Mg Tablet PO 2 mg BEDTIME LILLI Administration Sodium Chloride 3 ml 02/26/20 16:00 02/27/20 00:45 0.9 % Sodium Chloride Flush 3 Ml Syringe IVFLUSH 3 ml QSHIFT [facility]I Administration Spironolactone 50 mg 02/27/20 09:00 Spironolactone 25 Mg Tablet PO DAILY [facility] Protocol Thiamine HCl 100 mg 02/27/20 09:00 Thiamine Hcl 100 Mg Tablet PO DAILY [facility] Torsemide 20 mg 02/27/20 09:00 Torsemide 20 Mg Tablet PO DAILY [facility] Protocol Labs CBC & Chem 7: 02/26/20 04:40 02/26/20 04:40 Assessment and Plan (1) Acute hepatic encephalopathy: Status: Acute (2) Seizure: Status: Acute (3) Advanced hepatic cirrhosis: Status: Acute Assessment and Plan: this is a 54-year-old female with history of alcoholic liver cirrhosis and recent admission for hepatic encephalopathy who presented with altered mental status found to have hepatic encephalopathy # hepatic encephalopathy - likely noncompliance with lactulose - elevated ammonia 185, now down to 38 -continue lactulose seizure brain CT negative. afebrile. -tox screen pending -neuro checks, neuro consult Dr. Arias recommend no antiepileptics # alcoholic liver cirrhosis - associated anemia, thrombocytopenia, coagulopathy - continue Aldactone, rifaximin, torsemide # anemia - chronic, stable # thrombocytopenia related to liver disease - follow CBC diabetes Most recent Hba1c 4.1 - SSI, POC -hold metformin COPD no exacerbation continue home meds #Fall at home, PT eval, may benefit from rehab due to recurrent admssion every couple of days. DVT prophylaxis-mechanical devices
[2020-02-27] MEDS: Spironolactone 25 MG TABLET 50 MG PO (09:28)
[2020-02-27] MEDS: Potassium Chloride ER 20 MEQ TAB.ER.PRT 40 MEQ PO (09:28)
[2020-02-27] MEDS: Folic Acid 1 MG TABLET PO (09:28)
[2020-02-27] MEDS: rifAXIMin 550 MG TABLET PO ×2 (09:28→20:10)
[2020-02-27] MEDS: Thiamine HCL 100 MG TABLET PO (09:28)
[2020-02-27] MEDS: Pyridoxine HCl (Vitamin B6) 50 MG TABLET PO (09:29)
[2020-02-27] MEDS: Torsemide 20 MG TABLET PO (09:29)
--- NOTE | 2020-02-27 10:36 | MHC.CM.PN ---
CM spoke with Patient's first/only contact/Friend/Malena Ramos (covid precautions). Patient lives in an apartment with her S.O./Jose Rafael, who also assists with Patient's care. Patient uses a walker to assist with mobility and the goal for dc is to return home with former VNA (malena believes it is through [facility]) and CM has initiated and will follow for dc planning. PCP is KWAME Bagley and HCP is on file.Patient was also receiving [facility] in the past.
[2020-02-27 11:51] LABS: Glucose, Whole Blood 88 mg/dL (60-115)
[2020-02-27 17:14] LABS: Glucose, Whole Blood 111 mg/dL (60-115)
[2020-02-27] MEDS: risperiDONE 2 MG TABLET PO (20:11)
[2020-02-27 21:02] LABS: Glucose, Whole Blood 118 mg/dL (60-115)
[2020-02-28] VITALS (8 sets, daily range): BP systolic 109–156; BP diastolic 55–70; PULSE 62–77; RESP 18–20; TEMP 36.1–37.1; O2SAT 94–98
[2020-02-28] MEDS: 0.9 % Sodium Chloride Flush 3 ML SYRINGE IVFLUSH ×4 (00:10→21:17)
[2020-02-28] MEDS: oxyCODONE HCl Immed Release 5 MG TABLET PO ×3 (04:44→17:40)
[2020-02-28] MEDS: Omeprazole 20 MG CAPSULE.DR PO ×2 (05:30→15:38)
[2020-02-28 05:36] LABS: Appearance Urine CLEAR; Color Urine YELLOW; Glucose Urine UA NEG (NEG); Leukocyte Esterase Urine NEG (NEG); Nitrite Urine NEG (NEG); Urine Blood NEG (NEG); Urine Ketones NEG (NEG); Urine Protein NEG (NEG-TRACE)
[2020-02-28 05:55] LABS: Amphetamine Screen Urine Not Detected (Not Detect); Barbiturates, Urine Not Detected (Not Detect); Benzodiazepines Screen Urine Not Detected (Not Detect); Cannabinoid Screen Urine Not Detected (Not Detect); Cocaine Screen Urine Not Detected (Not Detect); Opiate Screen Urine POSITIVE (Not Detect); Phencyclidine Screen Urine Not Detected (Not Detect)
[2020-02-28] MEDS: Fluticasone Propionate 250 MCG BLST.W.DEV 2 PUFF INHALE ×2 (07:22→20:03)
[2020-02-28 07:37] LABS: Glucose, Whole Blood 90 mg/dL (60-115)
[2020-02-28 09:11] LABS: Hematocrit 28.7 % (37-47); Mean Corpuscular HGB Conc 31.4 g/dl (31.0-35.0); Mean Corpuscular Hemoglobin 32.4 pg (27.0-33.0); Mean Corpuscular Volume 103.2 fL (80-98); Mean Platelet Volume 10.3 fL (9.4-12.3); Red Blood Count 2.78 X10*6/uL (4.20-5.50); Red Cell Distribution Width 18.8 % (11.0-16.0); White Blood Count 5.1 X10*3/uL (4.8-10.8)
--- NOTE | 2020-02-28 09:12 | HO.PM.IMPN ---
Subjective Subjective Date of Service: 02/28/20 Interval History: Seen in follow-up for HIPEC encephalopathy and seizures. She has no further seizures, she is fully alert and c/o increasing swelling in her legs Review of Systems Gen: no fever Resp: no sob, no cough CV: no chest, no SHANNON, no leg edema GI: No n/v, no abd pain Neuro: No confusion Physical Exam Vital Signs: Vital Signs: Last Vital Signs Temp 98.8 F 02/28/20 08:00 Pulse 76 02/28/20 08:00 Resp 20 02/28/20 08:00 BP 109/55 L 02/28/20 08:00 Pulse Ox 94 02/28/20 08:00 Body Mass Index 40.1 Cardio: Other: General: AO X 3, no acute distress Resp: CTA bilateral, normal resp effor CVS: S1,S2,RRR GI: +BS, NT, no distention Skin: No rash, jaundice Neuro: motor grossly intact Psych: appropriate affect Heart sounds: S1 normal heart sound present and no murmurs Objective Data Current Medications Generic Name Dose Route Start Last Admin Trade Name Freq PRN Reason Stop Dose Admin Acetaminophen 650 mg 02/26/20 18:33 02/27/20 04:19 Acetaminophen 325 Mg Tablet PO 650 mg Q8H PRN Administration Pain, Mild (Pain Scale 1-3) Albuterol Sulfate 2 puff 02/26/20 15:04 Albuterol Sulfate 90 Mcg 8 Gm Inhaler INHALE Q4H PRN Shortness Of Breath Calcium Carbonate 375 mg 02/26/20 15:04 Calcium Carbonate 750 Mg Tab.Chew PO TID PRN Heartburn Fluticasone Propionate 2 puff 02/26/20 21:00 02/28/20 07:22 Fluticasone Propionate 250 Mcg Blst.W.Dev INHALE 2 puff BID LILLI Administration Folic Acid 1 mg 02/27/20 09:00 02/27/20 09:28 Folic Acid 1 Mg Tablet PO 1 mg DAILY [facility] Administration Glycerin 1 supp 02/26/20 15:04 Glycerin Adult Supp.Rect MO DAILY PRN Constipation Insulin Human Lispro 0 unit 02/26/20 15:04 02/27/20 21:08 Insulin Lispro 100 Unit/Ml 3 Ml Vial SUBCUT Not Given QIDACHS [facility] Protocol Lactulose 30 gm 02/26/20 10:15 02/27/20 20:11 Lactulose 20 Gm/30 Ml Solution PO Not Given TID LILLI Non-Formulary Medication 2 puff 02/27/20 09:00 Tiotropium-Olodaterol [Stiolto Respimat] INHALE DAILY [facility] Omeprazole 20 mg 02/27/20 06:30 02/28/20 05:30 Omeprazole 20 Mg Capsule.Dr PO 20 mg BID@0630,1430 [facility] Administration Oxycodone HCl 5 mg 02/26/20 15:44 02/28/20 04:44 Oxycodone Hcl Immed Release 5 Mg Tablet PO 5 mg Q6H PRN Administration Pain, Severe (Pain Scale 7-10) Pharmacy Consult 1 each 02/26/20 05:18 Consult Rx Perform Med Rec MISCELLANE ONCE PRN Consult order Potassium Chloride 40 meq 02/27/20 09:00 02/27/20 09:28 Potassium Chloride Er 20 Meq Tab.Er.Prt PO 40 meq DAILY [facility] Administration Pyridoxine HCl 50 mg 02/27/20 09:00 02/27/20 09:29 Pyridoxine Hcl (Vitamin B6) 50 Mg Tablet PO 50 mg DAILY [facility] Administration Rifaximin 550 mg 02/26/20 21:00 02/27/20 20:10 Rifaximin 550 Mg Tablet PO 550 mg BID [facility] Administration Risperidone 2 mg 02/26/20 21:00 02/27/20 20:11 Risperidone 2 Mg Tablet PO 2 mg BEDTIME [facility] Administration Sodium Chloride 3 ml 02/26/20 16:00 02/28/20 00:10 0.9 % Sodium Chloride Flush 3 Ml Syringe IVFLUSH 3 ml QSHIFT [facility] Administration Spironolactone 50 mg 02/27/20 09:00 02/27/20 09:28 Spironolactone 25 Mg Tablet PO 50 mg DAILY [facility] Administration Protocol Thiamine HCl 100 mg 02/27/20 09:00 02/27/20 09:28 Thiamine Hcl 100 Mg Tablet PO 100 mg DAILY [facility] Administration Torsemide 20 mg 02/27/20 09:00 02/27/20 09:29 Torsemide 20 Mg Tablet PO 20 mg DAILY [facility] Administration Protocol Labs CBC & Chem 7: 02/26/20 04:40 02/26/20 04:40 Assessment and Plan (1) Acute hepatic encephalopathy: Status: Acute (2) Seizure: Status: Acute (3) Advanced hepatic cirrhosis: Status: Acute Assessment and Plan: this is a 54-year-old female with history of alcoholic liver cirrhosis and recent admission for hepatic encephalopathy who presented with altered mental status found to have hepatic encephalopathy # hepatic encephalopathy - likely noncompliance with lactulose--resolved - elevated ammonia 185, now down to 38 -continue lactulose at present dose seizure brain CT negative. afebrile. -tox screen pending -neuro checks, neuro consult Dr. Arias recommend no antiepileptics # alcoholic liver cirrhosis - associated anemia, thrombocytopenia, coagulopathy - continue Aldactone, rifaximin, torsemide at home give IV Lasix due marked leg edema # anemia - chronic, stable # thrombocytopenia related to liver disease - follow CBC diabetes Most recent Hba1c 4.1 - SSI, POC -hold metformin COPD no exacerbation continue home meds #Fall at home, PT eval, may benefit from rehab due to recurrent admssion every couple of days. She is adamant she doesn't want to go rehab DVT prophylaxis-mechanical devices
[2020-02-28 09:14] LABS: Platelet Count 83 X10*3/uL (160-400)
[2020-02-28 09:33] LABS: Ammonia 90 umol/L (13-55)
[2020-02-28 09:38] LABS: Anion Gap 12 (12-20); Blood Urea Nitrogen 8 mg/dL (9-16); Calcium 7.7 mg/dL (8.4-10.2); Carbon Dioxide 31 mmol/L (22-29); Chloride 98 mmol/L (96-108); Creatinine Clr Calc Pharmacy 87.6; Estimated Glomerular Filt Rate > 60; Glucose Random 121 mg/dL (60-115); Potassium 3.9 mmol/l (3.3-5.1); Sodium 137 mmol/L (135-145)
[2020-02-28] MEDS: Furosemide 40 MG/4 ML VIAL IVPUSH (10:27)
[2020-02-28] MEDS: Torsemide 20 MG TABLET PO (10:27)
[2020-02-28] MEDS: Folic Acid 1 MG TABLET PO (10:28)
[2020-02-28] MEDS: Potassium Chloride ER 20 MEQ TAB.ER.PRT 40 MEQ PO (10:28)
[2020-02-28] MEDS: rifAXIMin 550 MG TABLET PO (10:28)
[2020-02-28] MEDS: Pyridoxine HCl (Vitamin B6) 50 MG TABLET PO (10:28)
[2020-02-28] MEDS: Spironolactone 25 MG TABLET 50 MG PO (10:28)
[2020-02-28] MEDS: Thiamine HCL 100 MG TABLET PO (10:29)
[2020-02-28] MEDS: Lactulose 20 GM/30 ML SOLUTION 30 GM PO ×2 (10:29→15:40)
[2020-02-28 11:29] LABS: Glucose, Whole Blood 140 mg/dL (60-115)
[2020-02-28] MEDS: Albuterol Sulfate 90 MCG 8 GM INHALER 2 PUFF INHALE (14:32)
[2020-02-28 16:59] LABS: Glucose, Whole Blood 124 mg/dL (60-115)
[2020-02-28 21:00] LABS: Glucose, Whole Blood 103 mg/dL (60-115)
[2020-02-28] MEDS: risperiDONE 2 MG TABLET PO (21:17)
[2020-02-28] MEDS: Acetaminophen 325 MG TABLET 650 MG PO (21:20)
[2020-02-28] MEDS: hydrOXYzine HCL 10 MG TABLET PO (21:56)
[2020-02-29] VITALS: BP 120/56; PULSE 70; RESP 20; TEMP 36.6; O2SAT 93
[2020-02-29] MEDS: oxyCODONE HCl Immed Release 5 MG TABLET PO ×2 (00:16→11:58)
[2020-02-29 04:00] VITALS: BP 100/56; PULSE 69; RESP 20; TEMP 36.9; O2SAT 93
[2020-02-29] MEDS: Omeprazole 20 MG CAPSULE.DR PO ×2 (05:41→15:40)
[2020-02-29 07:45] LABS: Glucose, Whole Blood 82 mg/dL (60-115)
[2020-02-29] MEDS: Fluticasone Propionate 250 MCG BLST.W.DEV 2 PUFF INHALE (07:53)
[2020-02-29 08:00] VITALS: BP 125/57; PULSE 63; RESP 20; TEMP 36.7; O2SAT 96
[2020-02-29] MEDS: Lactulose 20 GM/30 ML SOLUTION 30 GM PO ×2 (08:39→15:40)
[2020-02-29] MEDS: 0.9 % Sodium Chloride Flush 3 ML SYRINGE IVFLUSH (08:39)
[2020-02-29 08:40] VITALS: BP 106/58; PULSE 78
[2020-02-29] MEDS: Folic Acid 1 MG TABLET PO (08:40)
[2020-02-29] MEDS: Spironolactone 25 MG TABLET 50 MG PO (08:40)
[2020-02-29] MEDS: Potassium Chloride ER 20 MEQ TAB.ER.PRT 40 MEQ PO (08:40)
[2020-02-29] MEDS: Pyridoxine HCl (Vitamin B6) 50 MG TABLET PO (08:41)
[2020-02-29] MEDS: rifAXIMin 550 MG TABLET PO (08:41)
[2020-02-29] MEDS: Thiamine HCL 100 MG TABLET PO (08:41)
[2020-02-29] MEDS: Torsemide 20 MG TABLET PO (08:41)
[2020-02-29 11:29] LABS: Glucose, Whole Blood 112 mg/dL (60-115)
[2020-02-29] MEDS: Acetaminophen 325 MG TABLET 650 MG PO (11:59)
[2020-02-29 12:00] VITALS: BP 119/58; PULSE 68; RESP 20; TEMP 36.6; O2SAT 97
--- NOTE | 2020-02-29 12:05 | MHC.CM.PN ---
CM met with patient re: discharge plan since PT is recommending [facility]. ![facility], [facility]. CM will continue to follow for discharge needs.
--- NOTE | 2020-02-29 12:55 | P.DS_ITS ---
DS: Providers Provider Date of admission: 02/26/20 10:11 Primary care physician: Unknown Physician Consults: 02/26/20 10:11 Consult to Neurology Routine Consulting Provider: [facility] Reason for consultation: seizure Has provider been notified: No DS: Diagnosis Discharge Diagnosis (1) Acute hepatic encephalopathy: Status: Acute (2) Seizure: Status: Acute (3) Advanced hepatic cirrhosis: Status: Acute DS: Medications Discharge Medications Home Medications: Home Medications Medication Instructions Recorded Confirmed Xifaxan 550 mg PO BID 01/20/20 02/26/20 folic acid 1 mg PO DAILY 01/20/20 02/26/20 omeprazole 20 mg PO BID 01/20/20 02/26/20 potassium chloride 40 meq PO DAILY 01/20/20 02/26/20 risperidone 2 mg PO BEDTIME 01/20/20 02/26/20 Flovent HFA 2 puff INHALATION BID 02/09/20 02/26/20 albuterol sulfate 2 puff INHALATION Q4H PRN 02/09/20 02/26/20 calcium carbonate [Antacid Ext Str 1 tab PO TID PRN 02/09/20 02/26/20 (calcium carb)] thiamine HCl (vitamin B1) 100 mg PO DAILY 02/09/20 02/26/20 baclofen 10 mg PO QPM 02/13/20 02/19/20 cetirizine 10 mg PO DAILY 02/19/20 02/26/20 gabapentin 600 mg PO TID 02/19/20 02/26/20 glycerin (adult) 1 supp ME DAILY PRN 02/19/20 02/26/20 metformin 750 mg PO BEDTIME 02/19/20 02/26/20 pyridoxine (vitamin B6) 50 mg PO DAILY 02/19/20 02/26/20 Stiolto Respimat 2 puff INHALATION DAILY 02/26/20 02/26/20 Previous Rx's Medication Instructions Recorded lactulose 30 g PO TID #240 ml 02/23/20 spironolactone 50 mg PO DAILY #30 tab 02/23/20 torsemide 20 mg PO DAILY #30 tab 02/23/20 DS: Summary Hospital Course Hospital Course: Patient presented with hepatic encephalopathy due to noncompliance with her lactulose by her own admission. She was treated with lactulose on home doses which resulted in resolution of her encephalopathy. There were reports of seizure-like activity while in the emergency room and neurology was consulted who recommended no antiepileptics and to treat her elevated ammonia. Patient will be sent to correction facility to continue her care. Time Spent with Patient Time attestation: Total time spent providing and/or coordinating discharge services: Physical Exam Vital Signs: Vital Signs: Last Vital Signs Temp 98.0 F 02/29/20 08:00 Pulse 78 02/29/20 08:40 Resp 20 02/29/20 08:00 BP 106/58 L 02/29/20 08:40 Pulse Ox 96 02/29/20 08:00 Body Mass Index 40.1 Const: Other: General - no acute distress, appears comfortable Cardiovascular - regular rate and rhythm, S1-S2 Lungs - normal respiratory effort, clear to auscultation bilaterally, no wh eezing Abdomen - soft, nontender, no rebound or guarding Extremities - no edema bilaterally Neuro - awake and alert, no focal deficits DS: Data Data Completed and Pending Completed studies during hospitalization [Text1]: Procedures Transfusion of Nonautologous Red Blood Cells into Peripheral Vein, Percutaneous Approach (02/13/20) Labs on day of discharge: Laboratory Last Values WBC 5.1 X10*3/uL (4.8-10.8) 02/28/20 08:13 RBC 2.78 X10*6/uL (4.20-5.50) L 02/28/20 08:13 Hgb 9.0 g/dl (12.0-16.0) L 02/28/20 08:13 Hct 28.7 % (37-47) L 02/28/20 08:13 MCV 103.2 fL (80-98) H 02/28/20 08:13 MCH 32.4 pg (27.0-33.0) 02/28/20 08:13 MCHC 31.4 g/dl (31.0-35.0) 02/28/20 08:13 RDW 18.8 % (11.0-16.0) H 02/28/20 08:13 Plt Count 83 X10*3/uL (160-400) L 02/28/20 08:13 MPV 10.3 fL (9.4-12.3) 02/28/20 08:13 Immature Gran % (Auto) 0.5 % (0.0-0.4) H 02/26/20 04:40 Neut % (Auto) 75.0 % (45-73) H 02/26/20 04:40 Lymph % (Auto) 9.2 % (20-40) L 02/26/20 04:40 [place] % (Auto) 10.7 % (2-11) 02/26/20 04:40 Eos % (Auto) 3.9 % (0-4) 02/26/20 04:40 Baso % (Auto) 0.7 % (0-2) 02/26/20 04:40 Lymph # (Auto) 0.5 X10*3/uL (1.2-4.9) L 02/26/20 04:40 [place] # (Auto) 0.6 X10*3/uL (0.1-1.2) 02/26/20 04:40 Eos # (Auto) 0.2 X10*3/uL (0.0-0.4) 02/26/20 04:40 Baso # (Auto) 0.0 X10*3/uL (0.0-0.2) 02/26/20 04:40 Abs Immat Gran (auto) 0.03 X10*3/uL (0.00-0.03) 02/26/20 04:40 Absolute Neuts (auto) 4.3 X10*3/uL (2.0-8.3) 02/26/20 04:40 Absolute Nucleated RBC 0.000 X10*3/uL (0.0-0.012) 02/28/20 08:13 Nucleated RBC % (auto) 0.0 /100WBC (0.0-0.2) 02/28/20 08:13 PT 19.3 SEC (10.8-13.0) H 02/26/20 04:40 INR 1.6 (0.9-1.1) H 02/26/20 04:40 Hold Blue Top SEE NOTE 02/26/20 04:40 Sodium 137 mmol/L (135-145) 02/28/20 08:54 Potassium 3.9 mmol/l (3.3-5.1) 02/28/20 08:54 Chloride 98 mmol/L (96-108) 02/28/20 08:54 Carbon Dioxide 31 mmol/L (22-29) H 02/28/20 08:54 Anion Gap 12 (12-20) 02/28/20 08:54 BUN 8 mg/dL (9-16) L 02/28/20 08:54 Creatinine 0.82 mg/dL (0.5-1.4) 02/28/20 08:54 Estim Creat Clear Calc 87.6 02/28/20 08:54 Estimated GFR > 60 02/28/20 08:54 POC Glucose 112 mg/dL (60-115) 02/29/20 11:15 Random Glucose 121 mg/dL (60-115) H 02/28/20 08:54 Calcium 7.7 mg/dL (8.4-10.2) L 02/28/20 08:54 Total Bilirubin 3.6 mg/dL (0.0-1.0) H 02/26/20 04:40 AST 70 U/L (5-31) H 02/26/20 04:40 ALT 18 U/L (0-31) 02/26/20 04:40 Alkaline Phosphatase 129 U/L (39-117) H 02/26/20 04:40 Ammonia 90 umol/L (13-55) H 02/28/20 08:54 B-Natriuretic Peptide 193 pg/mL (<100) H 02/26/20 04:40 Total Protein 5.9 g/dL (6.5-8.0) L 02/26/20 04:40 Albumin 2.5 g/dL (3.5-5.0) L 02/26/20 04:40 Lipase 20 U/L (8-78) 02/26/20 04:40 Urine Color YELLOW 02/28/20 05:01 Urine Appearance CLEAR 02/28/20 05:01 Urine pH 6.0 (5.0-8.0) 02/28/20 05:01 Ur Specific [place] 1.020 (1.005-1.025) 02/28/20 05:01 Urine Protein NEG MG/DL (NEG-TRACE) 02/28/20 05:01 Urine Glucose (UA) NEG MG/DL (NEG) 02/28/20 05:01 Urine Ketones NEG MG/DL (NEG) 02/28/20 05:01 Urine Blood NEG (NEG) 02/28/20 05:01 Urine Nitrite NEG (NEG) 02/28/20 05:01 Ur Leukocyte Esterase NEG (NEG) 02/28/20 05:01 Urine Opiates Screen POSITIVE (Not Detect) H 02/28/20 05:00 Ur Barbiturates Screen Not Detected (Not Detect) 02/28/20 05:00 Ur Phencyclidine Scrn Not Detected (Not Detect) 02/28/20 05:00 Ur Amphetamines Screen Not Detected (Not Detect) 02/28/20 05:00 U Benzodiazepines Scrn Not Detected (Not Detect) 02/28/20 05:00 Urine Cocaine Screen Not Detected (Not Detect) 02/28/20 05:00 U Marijuana (THC) Screen Not Detected (Not Detect) 02/28/20 05:00 COVID-19 (GIOVANI) Negative (Negative) 02/26/20 05:53 COVID-19 Clin Com See Note 02/26/20 05:53 Discharge Plan Discharge Patient Disposition: Xfer SNF Referrals: [facility], [facility] [Nurse Practitioner] - 1 Week (Nuvia will call you with a follow up appointment.) Discharge Medications: Continued potassium chloride 20 mEq tablet,ER particles/crystals 40 meq PO DAILY RF: 0 folic acid 1 mg tablet 1 mg PO DAILY RF: 0 Xifaxan 550 mg tablet 550 mg PO BID RF: 0 omeprazole 20 mg Capsule,Delayed Release(Dr/Ec) 20 mg PO BID RF: 0 risperidone 1 mg tablet 2 mg PO BEDTIME RF: 0 thiamine HCl (vitamin B1) 100 mg tablet 100 mg PO DAILY RF: 0 calcium carbonate [Antacid Ext Str (calcium carb)] 300 mg (750 mg) tablet,chewable 1 tab PO TID PRN (Reason: Heartburn) RF: 0 Flovent HFA 220 mcg/actuation HFA aerosol inhaler 2 puff inhalation BID RF: 0 albuterol sulfate 90 mcg/actuation HFA aerosol inhaler 2 puff inhalation Q4H PRN (Reason: Shortness Of Breath) RF: 0 baclofen 10 mg tablet 10 mg PO QPM RF: 0 gabapentin 600 mg tablet 600 mg PO TID RF: 0 cetirizine 10 mg tablet 10 mg PO DAILY RF: 0 pyridoxine (vitamin B6) 50 mg tablet 50 mg PO DAILY RF: 0 metformin 750 mg tablet extended release 24 hr 750 mg PO BEDTIME RF: 0 glycerin (adult) Suppository 1 supp ME DAILY PRN (Reason: Constipation) RF: 0 spironolactone 25 mg Tablet 50 mg PO DAILY Qty: 30 RF: 0 lactulose 20 gram/30 mL Solution 30 g PO TID Qty: 240 RF: 0 torsemide 20 mg tablet 20 mg PO DAILY Qty: 30 RF: 0 Stiolto Respimat 2.5-2.5 mcg/actuation mist 2 puff inhalation DAILY RF: 0 Discharge Orders: Discharge Order (Routine); Ordered 02/29/20 Ordered By: Chilo Garza Diet: advance to usual diet Activity on Discharge: As tolerated Visit Report Forms: Patient Portal Discharge page Care Plan Goals: To stay healthy and out of the hospital. Health Concerns: Hepatic Encephalopathy Plan of Treatment: Take your liver medications
[2020-02-29 13:02] VITALS: RESP 18
--- NOTE | 2020-02-29 14:08 | MHC.CM.PN ---
Patient will be discharged today to [facility] via BLS at 4pm today. Patient and nurse are aware.
[2020-02-29 14:54] LABS: IDNOW Serial# 9DD0AD1C
[2020-02-29 14:55] LABS: COVID-19 Test Negative (Negative)
== END 2020-02-29 16:35 | disposition skilled nursing facility (03) | DRG 443 ==
LOC: HO.ED 04:48 → HO.IMC 12:29
PROVIDERS: Physician Assistant Medical; Admitting Provider Internal Medicine; Emergency Provider Emergency Medicine Emergency Medical Services; Visit Provider Family Medicine
DX: K72.00 Acute and subacute hepatic failure without coma (principal); K70.30 Alcoholic cirrhosis of liver without ascites; F41.9 Anxiety disorder, unspecified; F17.210 Nicotine dependence, cigarettes, uncomplicated; Z71.6 Tobacco abuse counseling; R56.9 Unspecified convulsions; Z20.828 Contact with and (suspected) exposure to other viral communicable diseases; Z91.14 Patient's other noncompliance with medication regimen; D69.6 Thrombocytopenia, unspecified; E11.9 Type 2 diabetes mellitus without complications; J44.9 Chronic obstructive pulmonary disease, unspecified; Z88.0 Allergy status to penicillin; Z88.2 Allergy status to sulfonamides; Z79.84 Long term (current) use of oral hypoglycemic drugs; Z79.899 Other long term (current) drug therapy
CPT/HCPCS: 36415; 70450; 71045; 80048; 80053; 80307; 81003; 82140; 82947; 83690; 83880; 85025; 85027; 85610; 87635; 93005; 94640; 96374; 96375; 97161; 99285; J1940; J2060; J2405

== ENCOUNTER 2020-03-29 13:17 | Inpatient (IN) | payer OTHER, SELFPAY ==
[2020-03-29] VITALS (7 sets, daily range): BP systolic 129–154; BP diastolic 61–82; PULSE 78–92; RESP 12–18; TEMP 36.9–37; O2SAT 94–100; BMI 38.3
--- NOTE | 2020-03-29 14:00 | XR_ITS ---
EXAMINATION: XR CHEST CLINICAL INFORMATION: NG tube placement. COMPARISON: Most recent chest radiograph dated 02/26/2020 TECHNIQUE: Frontal view of the chest was obtained. FINDINGS: Enterogastric tube with its tip beneath the left hemidiaphragm and in the region of the gastric body. No pleural effusion or pneumothorax. Minimal interstitial prominence, unchanged. Stable cardiomediastinal silhouette. XR/XR chest 1V IMPRESSION: Enterogastric tube with its tip in appropriate position.
--- NOTE | 2020-03-29 14:01 | CT_ITS ---
EXAMINATION: CT HEAD WITHOUT CONTRAST CLINICAL INFORMATION: Altered mental status, weakness, and lethargy. COMPARISON: Head CT dated 02/26/2020. TECHNIQUE: Contiguous axial imaging was performed from the skull base to vertex without intravenous administration of contrast. This CT examination was performed using dose optimization techniques as appropriate, variously including the following: *Automated exposure control *Adjustment of mA and/or kV according to patient size (this includes techniques or standardized protocols for targeted exams where dose is matched to indication/reason for exam; i.e. extremities or head) *Use of iterative reconstruction technique DLP: 731 mGy-cm FINDINGS: Examination is limited by motion artifact. There is no visible soft tissue trauma or skull fracture. There is no acute intracranial hemorrhage, midline shift, mass effect, intra- or extra-axial fluid collection. Monzon-white matter differentiation is preserved. The ventricles and sulci are unremarkable. The basal cisterns are patent. The orbital contents are unremarkable bilaterally. Visualized paranasal sinuses and mastoid air cells are clear. CT/CT head/brain wo con IMPRESSION: Motion artifact limits evaluation. Within this limitation, no acute intracranial pathology.
--- NOTE | 2020-03-29 14:10 | ED.GENADULT ---
HPI - General Adult General Chief complaint: Overdose Stated complaint: Used heroin not feeling well Time Seen by Provider: 03/29/20 13:54 Source: patient and EMS Mode of arrival: EMS Limitations: altered mental status History of Present Illness HPI narrative: 55 y/o female with history of ETOH cirrhosis s/p TIPS, hx recurrent hepatic encephalopathy, hyponatremia, COPD, substance abuse who presents with not feeling well after using a 1/2 bag of heroin last night. She is lethargic and altered so history is very limited. She is difficult to arouse but adamantly denies using drugs today. She arouses to sternal rub and then quickly falls back asleep. MD complaint: altered mental status Onset (ago): day(s) Severity: moderate Associated symptoms: confusion Treatments prior to arrival: none Related Data Home Medications Medication Instructions Recorded Confirmed Xifaxan 550 mg PO BID 01/20/20 02/26/20 folic acid 1 mg PO DAILY 01/20/20 02/26/20 omeprazole 20 mg PO BID 01/20/20 02/26/20 potassium chloride 40 meq PO DAILY 01/20/20 02/26/20 risperidone 2 mg PO BEDTIME 01/20/20 02/26/20 Flovent HFA 2 puff INHALATION BID 02/09/20 02/26/20 albuterol sulfate 2 puff INHALATION Q4H PRN 02/09/20 02/26/20 calcium carbonate [Antacid Ext Str 1 tab PO TID PRN 02/09/20 02/26/20 (calcium carb)] thiamine HCl (vitamin B1) 100 mg PO DAILY 02/09/20 02/26/20 baclofen 10 mg PO QPM 02/13/20 02/19/20 cetirizine 10 mg PO DAILY 02/19/20 02/26/20 gabapentin 600 mg PO TID 02/19/20 02/26/20 glycerin (adult) 1 supp IL DAILY PRN 02/19/20 02/26/20 metformin 750 mg PO BEDTIME 02/19/20 02/26/20 pyridoxine (vitamin B6) 50 mg PO DAILY 02/19/20 02/26/20 Stiolto Respimat 2 puff INHALATION DAILY 02/26/20 02/26/20 Previous Rx's Medication Instructions Recorded lactulose 30 g PO TID #240 ml 02/23/20 spironolactone 50 mg PO DAILY #30 tab 02/23/20 torsemide 20 mg PO DAILY #30 tab 02/23/20 Allergies Allergy/AdvReac Type Severity Reaction Status Date / Time lamotrigine [From LAMICTAL] Allergy Intermediate RASH Verified 02/26/20 04:34 amoxicillin [AMOXICILLIN] Allergy Unknown NAUSEA & Verified 02/26/20 04:34 VOMITING Iodinated Contrast Media Allergy Unknown ANAPHYLAXIS Verified 02/26/20 04:34 [CONTRAST, IV] Sulfa (Sulfonamide Allergy Unknown UNKNOWN Verified 02/26/20 04:34 Antibiotics) [SULFA (SULFONAMIDE ANTIBIOTICS)] sulfamethoxazole Allergy Unknown UNK Verified 02/26/20 04:34 [From BACTRIM] trimethoprim [From BACTRIM] Allergy Unknown UNK Verified 02/26/20 04:34 Review of Systems Review of Systems: Yes Unobtainable due to mental status PMFSH Past Medical History Medical History Anemia Anemia Anxiety Chronic back pain Chronic hyponatremia Cirrhosis Coagulopathy Congestive heart failure COPD (chronic obstructive pulmonary disease) COPD (chronic obstructive pulmonary disease) Depression Diabetes 1.5, managed as type 2 Hyponatremia Hyponatremia Liver disease Pneumonia PTSD (post-traumatic stress disorder) Thrombocytopenia Surgical History History of cholecystectomy Previous back surgery S/P TIPS (transjugular intrahepatic portosystemic shunt) Family History Family History Other HTN (hypertension) Social History Social History Household Members: Significant Other Housing: Apartment Alcohol intake: never Smoking Status: Current every day smoker Tobacco Type: Cigarette Packs Per Day: 0.5 Cigarettes Per Day: 10.0 Years Smoked: 40 Second Hand Smoke Exposure: No Use of substances other than those prescribed or required for medical reasons: Yes Substance Use Type: Heroin Substance Use Frequency: Occasionally Last Used Substance: Hours (ago) Advance Directives: No Advance Directives Information Provided: Yes service: No Current occupational status: unemployed Physical Exam Vital Signs: Vital Signs: Last Vital Signs Temp 98.4 F 03/29/20 16:00 Pulse 92 03/29/20 16:00 Resp 18 03/29/20 16:00 BP 154/62 H 03/29/20 16:00 Pulse Ox 99 03/29/20 16:00 Body Mass Index 38.3 Appearance: Middle aged obese female, jaundiced, appear ill Eyes: Scleral icterus bilaterally, Pupils equal, round and reactive to light. ENT: very dry oral mucosa, tongue is bright red Neck: Normal inspection. Neck supple. CVS: Normal heart rate and rhythm. Pulses normal. Respiratory: No respiratory distress. Breath sounds normal. Abdomen: Softly distended, ?tenderness to deep palpation. +BS x4 Skin: Skin warm and dry. Normal skin color. Skin with yellowish coloring. No rashes. Extremities: 2+ LE edema with chronic venous stasis changes. Neuro: lethargic, arouses to sternal rub and answers simple question and then easily falls back asleep. Course Course Course Narrative: 55 y/o female with cirrhosis, substance abuse presenting with vague complaint of not feeling well after using heroin last night. Given history and exam concern for hepatic encephalopathy vs toxic drug encephalopathy. Currently protecting her own airway with no hypoxia. Will get metabolic workup, cultures, CT head and ABG. NG ordered in anticipation of lactulose administration. Reevaluation(s) Reevaluation #1: 15:15 - lactic acid 3.2 with WBC 14K. Will give dose of Rocephin for possible SBP vs UTI. She is afebrile and hemodynamically stable. CXR does not show any evidence of PNA. Viral resp panel sent. Ammonia elevated at 81 consistent with hepatic encephalopathy - will give oral lactulose via NGT now. ABG shows compensated respiratory acidosis, no need for rescue BiPAP at this time. will monitor closely. Reevaluation #2: 3:25 - critical results of sodium of 120 called. This is acute - sodium was 137 on 02/28/2020. She has a history of hyponatremia in the past and is reportedly on torsemide and spironolactone at home. Urine lytes ordered. IVF ordered - will give slow normal saline given she appears very dry on exam. Will place Rodriguez, get urine electrolytes and consult Nephrology for further recs. Her total bilirubin is elevated to 11.2, direct bilirubin 5.2 from a baseline of 3.6 one month ago. Will get abdominal ultrasound with doppler to assess TIPS patency. ETOH level negative, acetaminophen level negative. Given her active drug use she may be continuing to abuse alcohol. Reevaluation #3: 4:10 pm - spoke with Dr. Coppola from Nephrology - recommends close monitoring of electrolytes every 3-4 hours. Ok to given NS @ 100 cc/hr x500 cc then reassess. Will need to monitor sodium closely, if she starts to have excessive diarrhea with lactulose may need to add free water or D5W to slow the rise. Gave small dose of Narcan with improvement in mental status. will continue monitor closely the need for additional dose. Signed out to Gabriel Wilson PA-C who will assume care. Consultations Consultation #1: Dr. Coppola - Nephrology Medical Decision Making Lab Data Result diagrams: 03/29/20 14:18 03/29/20 14:18 Labs: Lab Results 03/29/20 03/29/20 03/29/20 Range/Units 14:10 14:18 14:18 WBC 14.2 H (4.8-10.8) X10*3/uL RBC 2.87 L (4.20-5.50) X10*6/uL Hgb 9.3 L (12.0-16.0) g/dl Hct 27.3 L (37-47) % MCV 95.1 (80-98) fL MCH 32.4 (27.0-33.0) pg MCHC 34.1 (31.0-35.0) g/dl RDW 18.6 H (11.0-16.0) % Plt Count 66 L (160-400) X10*3/uL MPV 10.9 (9.4-12.3) fL Immature Gran % (Auto) 1.1 H (0.0-0.4) % Neut % (Auto) 81.5 H (45-73) % Lymph % (Auto) 5.8 L (20-40) % [place] % (Auto) 8.9 (2-11) % Eos % (Auto) 2.3 (0-4) % Baso % (Auto) 0.4 (0-2) % Lymph # (Auto) 0.8 L (1.2-4.9) X10*3/uL [place] # (Auto) 1.3 H (0.1-1.2) X10*3/uL Eos # (Auto) 0.3 (0.0-0.4) X10*3/uL Baso # (Auto) 0.1 (0.0-0.2) X10*3/uL Abs Immat Gran (auto) 0.16 H (0.00-0.03) X10*3/uL Absolute Neuts (auto) 11.6 H (2.0-8.3) X10*3/uL Absolute Nucleated RBC 0.000 (0.0-0.012) X10*3/uL Nucleated RBC % (auto) 0.0 (0.0-0.2) /100WBC Smear Tech's Comments Not Reportable PT 22.0 H (10.8-13.0) SEC INR 1.8 H (0.9-1.1) APTT 48.4 H (24.1-38.0) SEC ABG pH (7.35-7.45) ABG pCO2 (32-45) mmhg ABG pO2 (83-108) mmhg ABG HCO3 (22-26) mmol/l ABG O2 Saturation % ABG Base Excess Oxygen Given Sodium (135-145) mmol/L Potassium (3.3-5.1) mmol/l Chloride (96-108) mmol/L Carbon Dioxide (22-29) mmol/L Anion Gap (12-20) BUN (9-16) mg/dL Creatinine (0.5-1.4) mg/dL Estim Creat Clear Calc Estimated GFR POC Glucose (60-115) mg/dL Random Glucose (60-115) mg/dL Lactic Acid (0.5-2.0) mmol/L Calcium (8.4-10.2) mg/dL Magnesium (1.6-2.6) mg/dL Total Bilirubin (0.0-1.0) mg/dL Direct Bilirubin (0.0-0.5) mg/dL AST (5-31) U/L ALT (0-31) U/L Alkaline Phosphatase (39-117) U/L Ammonia (13-55) umol/L B-Natriuretic Peptide (<100) pg/mL Total Protein (6.5-8.0) g/dL Albumin (3.5-5.0) g/dL Urine Color Urine Appearance Urine pH (5.0-8.0) Ur Specific [place] (1.005-1.025) Urine Protein (NEG-TRACE) MG/DL Urine Glucose (UA) (NEG) MG/DL Urine Ketones (NEG) MG/DL Urine Blood (NEG) Urine Nitrite (NEG) Ur Leukocyte Esterase (NEG) Acetaminophen (<30) mcg/mL Ethyl Alcohol mg/dL Coronavirus (PCR) NEGATIVE (Negative) Influenza Type A (PCR) NEGATIVE (Negative) Influenza Type B (PCR) NEGATIVE (Negative) RSV RNA Qual (PCR) NEGATIVE (Negative) 03/29/20 03/29/20 03/29/20 Range/Units 14:18 14:18 14:18 WBC (4.8-10.8) X10*3/uL RBC (4.20-5.50) X10*6/uL Hgb (12.0-16.0) g/dl Hct (37-47) % MCV (80-98) fL MCH (27.0-33.0) pg MCHC (31.0-35.0) g/dl RDW (11.0-16.0) % Plt Count (160-400) X10*3/uL MPV (9.4-12.3) fL Immature Gran % (Auto) (0.0-0.4) % Neut % (Auto) (45-73) % Lymph % (Auto) (20-40) % [place] % (Auto) (2-11) % Eos % (Auto) (0-4) % Baso % (Auto) (0-2) % Lymph # (Auto) (1.2-4.9) X10*3/uL [place] # (Auto) (0.1-1.2) X10*3/uL Eos # (Auto) (0.0-0.4) X10*3/uL Baso # (Auto) (0.0-0.2) X10*3/uL Abs Immat Gran (auto) (0.00-0.03) X10*3/uL Absolute Neuts (auto) (2.0-8.3) X10*3/uL Absolute Nucleated RBC (0.0-0.012) X10*3/uL Nucleated RBC % (auto) (0.0-0.2) /100WBC Smear Tech's Comments PT (10.8-13.0) SEC INR (0.9-1.1) APTT (24.1-38.0) SEC ABG pH (7.35-7.45) ABG pCO2 (32-45) mmhg ABG pO2 (83-108) mmhg ABG HCO3 (22-26) mmol/l ABG O2 Saturation % ABG Base Excess Oxygen Given Sodium 120 L* (135-145) mmol/L Potassium 3.6 (3.3-5.1) mmol/l Chloride 85 L (96-108) mmol/L Carbon Dioxide 26 (22-29) mmol/L Anion Gap 13 (12-20) BUN 7 L (9-16) mg/dL Creatinine 0.74 (0.5-1.4) mg/dL Estim Creat Clear Calc 94.5 Estimated GFR > 60 POC Glucose (60-115) mg/dL Random Glucose 152 H (60-115) mg/dL Lactic Acid 3.2 H* (0.5-2.0) mmol/L Calcium 8.1 L (8.4-10.2) mg/dL Magnesium 1.8 (1.6-2.6) mg/dL Total Bilirubin 11.2 H (0.0-1.0) mg/dL Direct Bilirubin 5.1 H (0.0-0.5) mg/dL AST 68 H (5-31) U/L ALT 20 (0-31) U/L Alkaline Phosphatase 199 H D (39-117) U/L Ammonia (13-55) umol/L B-Natriuretic Peptide 94 (<100) pg/mL Total Protein 6.4 L (6.5-8.0) g/dL Albumin 2.6 L (3.5-5.0) g/dL Urine Color Urine Appearance Urine pH (5.0-8.0) Ur Specific [place] (1.005-1.025) Urine Protein (NEG-TRACE) MG/DL Urine Glucose (UA) (NEG) MG/DL Urine Ketones (NEG) MG/DL Urine Blood (NEG) Urine Nitrite (NEG) Ur Leukocyte Esterase (NEG) Acetaminophen < 1 (<30) mcg/mL Ethyl Alcohol mg/dL Coronavirus (PCR) (Negative) Influenza Type A (PCR) (Negative) Influenza Type B (PCR) (Negative) RSV RNA Qual (PCR) (Negative) 03/29/20 03/29/20 03/29/20 Range/Units 14:18 14:19 14:19 WBC (4.8-10.8) X10*3/uL RBC (4.20-5.50) X10*6/uL Hgb (12.0-16.0) g/dl Hct (37-47) % MCV (80-98) fL MCH (27.0-33.0) pg MCHC (31.0-35.0) g/dl RDW (11.0-16.0) % Plt Count (160-400) X10*3/uL MPV (9.4-12.3) fL Immature Gran % (Auto) (0.0-0.4) % Neut % (Auto) (45-73) % Lymph % (Auto) (20-40) % [place] % (Auto) (2-11) % Eos % (Auto) (0-4) % Baso % (Auto) (0-2) % Lymph # (Auto) (1.2-4.9) X10*3/uL [place] # (Auto) (0.1-1.2) X10*3/uL Eos # (Auto) (0.0-0.4) X10*3/uL Baso # (Auto) (0.0-0.2) X10*3/uL Abs Immat Gran (auto) (0.00-0.03) X10*3/uL Absolute Neuts (auto) (2.0-8.3) X10*3/uL Absolute Nucleated RBC (0.0-0.012) X10*3/uL Nucleated RBC % (auto) (0.0-0.2) /100WBC Smear Tech's Comments PT (10.8-13.0) SEC INR (0.9-1.1) APTT (24.1-38.0) SEC ABG pH (7.35-7.45) ABG pCO2 (32-45) mmhg ABG pO2 (83-108) mmhg ABG HCO3 (22-26) mmol/l ABG O2 Saturation % ABG Base Excess Oxygen Given Sodium (135-145) mmol/L Potassium (3.3-5.1) mmol/l Chloride (96-108) mmol/L Carbon Dioxide (22-29) mmol/L Anion Gap (12-20) BUN (9-16) mg/dL Creatinine (0.5-1.4) mg/dL Estim Creat Clear Calc Estimated GFR POC Glucose 144 H (60-115) mg/dL Random Glucose (60-115) mg/dL Lactic Acid (0.5-2.0) mmol/L Calcium (8.4-10.2) mg/dL Magnesium (1.6-2.6) mg/dL Total Bilirubin (0.0-1.0) mg/dL Direct Bilirubin (0.0-0.5) mg/dL AST (5-31) U/L ALT (0-31) U/L Alkaline Phosphatase (39-117) U/L Ammonia 81 H (13-55) umol/L B-Natriuretic Peptide (<100) pg/mL Total Protein (6.5-8.0) g/dL Albumin (3.5-5.0) g/dL Urine Color Urine Appearance Urine pH (5.0-8.0) Ur Specific [place] (1.005-1.025) Urine Protein (NEG-TRACE) MG/DL Urine Glucose (UA) (NEG) MG/DL Urine Ketones (NEG) MG/DL Urine Blood (NEG) Urine Nitrite (NEG) Ur Leukocyte Esterase (NEG) Acetaminophen (<30) mcg/mL Ethyl Alcohol < 10 mg/dL Coronavirus (PCR) (Negative) Influenza Type A (PCR) (Negative) Influenza Type B (PCR) (Negative) RSV RNA Qual (PCR) (Negative) 03/29/20 03/29/20 Range/Units 15:00 16:22 WBC (4.8-10.8) X10*3/uL RBC (4.20-5.50) X10*6/uL Hgb (12.0-16.0) g/dl Hct (37-47) % MCV (80-98) fL MCH (27.0-33.0) pg MCHC (31.0-35.0) g/dl RDW (11.0-16.0) % Plt Count (160-400) X10*3/uL MPV (9.4-12.3) fL Immature Gran % (Auto) (0.0-0.4) % Neut % (Auto) (45-73) % Lymph % (Auto) (20-40) % [place] % (Auto) (2-11) % Eos % (Auto) (0-4) % Baso % (Auto) (0-2) % Lymph # (Auto) (1.2-4.9) X10*3/uL [place] # (Auto) (0.1-1.2) X10*3/uL Eos # (Auto) (0.0-0.4) X10*3/uL Baso # (Auto) (0.0-0.2) X10*3/uL Abs Immat Gran (auto) (0.00-0.03) X10*3/uL Absolute Neuts (auto) (2.0-8.3) X10*3/uL Absolute Nucleated RBC (0.0-0.012) X10*3/uL Nucleated RBC % (auto) (0.0-0.2) /100WBC Smear Tech's Comments PT (10.8-13.0) SEC INR (0.9-1.1) APTT (24.1-38.0) SEC ABG pH 7.35 (7.35-7.45) ABG pCO2 48 H (32-45) mmhg ABG pO2 79 L (83-108) mmhg ABG HCO3 26 (22-26) mmol/l ABG O2 Saturation 94.8 % ABG Base Excess -0.3 Oxygen Given ROOM AIR Sodium (135-145) mmol/L Potassium (3.3-5.1) mmol/l Chloride (96-108) mmol/L Carbon Dioxide (22-29) mmol/L Anion Gap (12-20) BUN (9-16) mg/dL Creatinine (0.5-1.4) mg/dL Estim Creat Clear Calc Estimated GFR POC Glucose (60-115) mg/dL Random Glucose (60-115) mg/dL Lactic Acid (0.5-2.0) mmol/L Calcium (8.4-10.2) mg/dL Magnesium (1.6-2.6) mg/dL Total Bilirubin (0.0-1.0) mg/dL Direct Bilirubin (0.0-0.5) mg/dL AST (5-31) U/L ALT (0-31) U/L Alkaline Phosphatase (39-117) U/L Ammonia (13-55) umol/L B-Natriuretic Peptide (<100) pg/mL Total Protein (6.5-8.0) g/dL Albumin (3.5-5.0) g/dL Urine Color YELLOW Urine Appearance CLEAR Urine pH 6.5 (5.0-8.0) Ur Specific [place] 1.015 (1.005-1.025) Urine Protein NEG (NEG-TRACE) MG/DL Urine Glucose (UA) NEG (NEG) MG/DL Urine Ketones NEG (NEG) MG/DL Urine Blood 2+ H (NEG) Urine Nitrite NEG (NEG) Ur Leukocyte Esterase NEG (NEG) Acetaminophen (<30) mcg/mL Ethyl Alcohol mg/dL Coronavirus (PCR) (Negative) Influenza Type A (PCR) (Negative) Influenza Type B (PCR) (Negative) RSV RNA Qual (PCR) (Negative) Critical Care Time Critical Care Time Critical Care Time: Yes Total Critical Care Time: 70 Attestation: I attest to the critical care time spent caring for this patient with life threatening illnesses - multiple bedside reassessments for acute hepatic encephalopathy, acute hyponatremia, lactic acidosis and acute/chronic liver failure. Time spent reviewing results and old records as well as coordinating care with specialists. Discharge Plan Discharge Clinical Impression: Acute hyponatremia, Acute hepatic encephalopathy, Heroin abuse Acute liver failure Qualifiers: Hepatic coma status: with hepatic coma Qualified Code(s): K72.01 - Acute and subacute hepatic failure with coma Prescriptions: No Action potassium chloride 20 mEq tablet,ER particles/crystals 40 meq PO DAILY RF: 0 folic acid 1 mg tablet 1 mg PO DAILY RF: 0 Xifaxan 550 mg tablet 550 mg PO BID RF: 0 omeprazole 20 mg Capsule,Delayed Release(Dr/Ec) 20 mg PO BID RF: 0 risperidone 1 mg tablet 2 mg PO BEDTIME RF: 0 thiamine HCl (vitamin B1) 100 mg tablet 100 mg PO DAILY RF: 0 calcium carbonate [Antacid Ext Str (calcium carb)] 300 mg (750 mg) tablet,chewable 1 tab PO TID PRN (Reason: Heartburn) RF: 0 Flovent HFA 220 mcg/actuation HFA aerosol inhaler 2 puff inhalation BID RF: 0 albuterol sulfate 90 mcg/actuation HFA aerosol inhaler 2 puff inhalation Q4H PRN (Reason: Shortness Of Breath) RF: 0 baclofen 10 mg tablet 10 mg PO QPM RF: 0 gabapentin 600 mg tablet 600 mg PO TID RF: 0 cetirizine 10 mg tablet 10 mg PO DAILY RF: 0 pyridoxine (vitamin B6) 50 mg tablet 50 mg PO DAILY RF: 0 metformin 750 mg tablet extended release 24 hr 750 mg PO BEDTIME RF: 0 glycerin (adult) Suppository 1 supp IL DAILY PRN (Reason: Constipation) RF: 0 spironolactone 25 mg Tablet 50 mg PO DAILY Qty: 30 RF: 0 lactulose 20 gram/30 mL Solution 30 g PO TID Qty: 240 RF: 0 torsemide 20 mg tablet 20 mg PO DAILY Qty: 30 RF: 0 Stiolto Respimat 2.5-2.5 mcg/actuation mist 2 puff inhalation DAILY RF: 0
[2020-03-29 14:23] LABS: Glucose, Whole Blood 144 mg/dL (60-115)
[2020-03-29 14:32] LABS: Basophils Absolute Auto 0.1 X10*3/uL (0.0-0.2); Basophils Percent Auto 0.4 % (0-2); Eosinophils Percent Auto 2.3 % (0-4); Lymphocytes Percent Auto 5.8 % (20-40); MANUAL DIFF FLAG SCAN; PLT CLUMP 1; SCAN SMEAR FLAG 1
[2020-03-29 14:33] LABS: Eosinophils Absolute Auto 0.3 X10*3/uL (0.0-0.4); Hematocrit 27.3 % (37-47); Hemoglobin 9.3 g/dl (12.0-16.0); Imm Gran Abs Auto 0.16 X10*3/uL (0.00-0.03); Imm Gran Pct Auto 1.1 % (0.0-0.4); Lymphocytes Absolute Auto 0.8 X10*3/uL (1.2-4.9); Mean Corpuscular HGB Conc 34.1 g/dl (31.0-35.0); Mean Corpuscular Hemoglobin 32.4 pg (27.0-33.0); Mean Corpuscular Volume 95.1 fL (80-98); Mean Platelet Volume 10.9 fL (9.4-12.3); Monocytes Absolute Auto 1.3 X10*3/uL (0.1-1.2); Monocytes Percent Auto 8.9 % (2-11); Neutrophils Absolute Auto 11.6 X10*3/uL (2.0-8.3); Neutrophils Percent Auto 81.5 % (45-73); Red Blood Count 2.87 X10*6/uL (4.20-5.50); Red Cell Distribution Width 18.6 % (11.0-16.0); White Blood Count 14.2 X10*3/uL (4.8-10.8)
[2020-03-29 14:34] LABS: Platelet Count 66 X10*3/uL (160-400)
[2020-03-29 14:37] LABS: INTERNATIONAL NORM RATIO 1.8 (0.9-1.1)
[2020-03-29 14:40] LABS: Partial Thromboplastin Time 48.4 SEC (24.1-38.0)
--- NOTE | 2020-03-29 14:55 | PC.NURSE ---
iv inserted, labs drawn, pt nsr on ekg monitor, vss, ng tube inserted, covid swab performed, will continue to monitor.
[2020-03-29 14:59] LABS: Ammonia 81 umol/L (13-55)
[2020-03-29 15:05] LABS: Ethanol < 10 mg/dL; Lactic Acid 3.2 mmol/L (0.5-2.0)
[2020-03-29 15:06] LABS: Pt Ventilation O2% ROOM AIR
[2020-03-29 15:08] LABS: Influenza A PCR NEGATIVE (Negative); Influenza B PCR NEGATIVE (Negative); Resp Syncy Virus RNA Qual PCR NEGATIVE (Negative); SARS COV2 PCR INHOUSE NEGATIVE (Negative)
[2020-03-29 15:12] LABS: ABG PCO2 48 mmhg (32-45); Base Excess ABG -0.3; HCO3 ABG 26 mmol/l (22-26); Oxygen Saturation ABG 94.8 %; PO2 ABG 79 mmhg (83-108); pH ABG 7.35 (7.35-7.45)
[2020-03-29 15:12] LABS: B Type Natriuretic Peptide 94 pg/mL (<100)
[2020-03-29 15:19] LABS: Alanine Aminotransferase 20 U/L (0-31); Albumin Level 2.6 g/dL (3.5-5.0); Alkaline Phosphatase 199 U/L (39-117); Anion Gap 13 (12-20); Aspartate Amino Transferase 68 U/L (5-31); Bilirubin Direct 5.1 mg/dL (0.0-0.5); Bilirubin Total 11.2 mg/dL (0.0-1.0); Blood Urea Nitrogen 7 mg/dL (9-16); Calcium 8.1 mg/dL (8.4-10.2); Carbon Dioxide 26 mmol/L (22-29); Chloride 85 mmol/L (96-108); Creatinine Clr Calc Pharmacy 94.5; Estimated Glomerular Filt Rate > 60; Glucose Random 152 mg/dL (60-115); Magnesium 1.8 mg/dL (1.6-2.6); Potassium 3.6 mmol/l (3.3-5.1); Sodium 120 mmol/L (135-145); Total Protein 6.4 g/dL (6.5-8.0)
--- NOTE | 2020-03-29 15:29 | US_ITS ---
EXAMINATION: US ABDOMEN LIMITED CLINICAL INFORMATION: Chronic liver failure status post TIPS. COMPARISON: CT of the abdomen and pelvis with contrast dated 02/13/2020. TECHNIQUE: Real-time imaging of the right upper quadrant abdominal viscera. Color Doppler and spectral Doppler interrogation of the TIPS was performed. FINDINGS: PANCREAS: Poorly visualized secondary to overlying bowel gas. LIVER: The liver demonstrates a coarse hepatic echotexture with heterogeneous echogenicity and nodular hepatic contour. A TIPS is noted with appreciable flow. There is limited interrogation of the TIPS on spectral Doppler and color Doppler imaging to assess velocities and direction of flow due to overlying bowel gas and patient immobility during examination. GALLBLADDER: Not visualized. COMMON BILE DUCT: Not visualized. RIGHT KIDNEY: Limited evaluation of the renal parenchyma secondary to overlying bowel gas and patient's limited mobility during examination. The kidney measures 9.6 cm in maximum dimension. No gross hydronephrosis. FREE FLUID: No free fluid visualized. US/US abdomen limited IMPRESSION: Limited evaluation due to overlying bowel gas and patient immobility. Within this limitation: 1. Chronic liver disease. 2. Status post TIPS. Flow visualized within the TIPS, however due to examination limitations direction of flow and flow velocities were not obtained.
[2020-03-29] MEDS: cefTRIAXone sodium 1 GM in 0.9 % Sodium Chloride 50 ML IV (15:37)
[2020-03-29] MEDS: Lactulose 20 GM/30 ML SOLUTION 30 GM NG-TUBE (15:38)
[2020-03-29] MEDS: 0.9 % Sodium Chloride 1,000 ML 999 ML IVCONT (15:38)
[2020-03-29 15:45] LABS: Acetaminophen LAB < 1 mcg/mL (<30)
[2020-03-29] MEDS: Potassium Chloride Packet 20 MEQ PACKET 40 MEQ PO (16:10)
[2020-03-29] MEDS: Naloxone HCl 0.4 MG/ML VIAL 0.2 MG IVPUSH ×2 (16:11→20:49)
[2020-03-29 16:26] LABS: Reflex Lactate? Lactic Acid Added
--- NOTE | 2020-03-29 16:29 | PC.NURSE ---
per verbal order by provider, give patient only 500ml NS at 100 ml per hr, pt nsr on surveillance monitor, vitals stable, bess cath inserted, ng tube inserted, pt medicated per order, warm blankets given per order, will continue to monitor
[2020-03-29 16:33] LABS: Glucose Urine UA NEG (NEG); Leukocyte Esterase Urine NEG (NEG); Nitrite Urine NEG (NEG); PH 6.5 (5.0-8.0); Specific Gravity - Urine 1.015 (1.005-1.025); Urine Blood 2+ (NEG); Urine Ketones NEG (NEG); Urine Protein NEG (NEG-TRACE)
[2020-03-29 16:34] LABS: Appearance Urine CLEAR; Color Urine YELLOW
--- NOTE | 2020-03-29 16:35 | PC.NURSE ---
bedside ultrasound being performed
[2020-03-29 17:05] LABS: Bacteria Urine TRACE /LPF; Squamous Epithelial Cell Urine TRACE /LPF; WBC Urine 0 /HPF (0-4)
[2020-03-29 17:43] LABS: Amphetamine Screen Urine Not Detected (Not Detect); Barbiturates, Urine Not Detected (Not Detect); Benzodiazepines Screen Urine Not Detected (Not Detect); Cannabinoid Screen Urine Not Detected (Not Detect); Cocaine Screen Urine Not Detected (Not Detect); Opiate Screen Urine POSITIVE (Not Detect); Phencyclidine Screen Urine Not Detected (Not Detect)
--- NOTE | 2020-03-29 18:17 | PC.NURSE ---
patient difficult stick, phlebotomy called
--- NOTE | 2020-03-29 18:37 | PC.NURSE ---
patient wakes to stimulus, threat monitoring analyst nsr 80s, vitals stable, bess cath patient/draining, ivf running per order, still awaiting phlebotomy to obtain lab draw, will continue to monitor.
--- NOTE | 2020-03-29 19:13 | PC.NURSE ---
phlebotomy came to room and jagdeep the labs
[2020-03-29 19:18] LABS: Sodium Urine Random < 20.0 mmol/L
[2020-03-29 19:26] LABS: Osmolality Urine 196 mosm/kg (373-1093)
[2020-03-29 19:40] LABS: ~Lactic Acid-LAB USE ONLY 2.3 mmol/L (0.5-2.0)
--- NOTE | 2020-03-29 19:56 | PC.NURSE ---
attempted to call phlebotomy for redraw, will try again in a few minutes as there was no answer.
--- NOTE | 2020-03-29 20:17 | PC.NURSE ---
repeat labs drawn with assistance of provider
[2020-03-29 20:28] LABS: Ammonia 90 umol/L (13-55)
--- NOTE | 2020-03-29 20:36 | PC.NURSE ---
patient wakes to sternal rub but is unable to answer questions to do columbia scale.
[2020-03-29 20:42] LABS: Osmolality, Serum 257 mosm/kg (281-305)
--- NOTE | 2020-03-29 20:50 | PC.NURSE ---
pt medicated with a second dose of narcan, patient responded and woke up
[2020-03-29 20:52] LABS: Anion Gap 14 (12-20); Blood Urea Nitrogen 8 mg/dL (9-16); Carbon Dioxide 24 mmol/L (22-29); Chloride 88 mmol/L (96-108); Estimated Glomerular Filt Rate > 60; Glucose Random 143 mg/dL (60-115); Lactic Acid 1.7 mmol/L (0.5-2.0); Potassium 5.1 mmol/l (3.3-5.1); Sodium 121 mmol/L (135-145)
[2020-03-29 21:04] LABS: Reflex Lactate? 2 Y
--- NOTE | 2020-03-29 21:31 | PC.NURSE ---
patient got agitated after narcan dosage pulled our her ng tube and a short time later pulled out her bess cath with the balloon inflated- there was 400 ml of urine in cath bag, provider is aware, will continue to monitor.
--- NOTE | 2020-03-29 23:21 | P.HPHOSP_ITS ---
History of Present Illness Date of Service: 03/29/20 Chief Complaint: Confusion This is a 55-year-old female alcoholic liver cirrhosis, hyponatremia, ascites, COPD who presents to the hospital with confusion. Patient is lethargic, slightly confused confused, but arousable and gives somewhat of a coherent history. She reports that she used heroin today but came into the ED because she is not feeling well. she reports that she has been confused for 1 day. She reports that she takes lactulose daily but only once a day and has about 1-2 bowel movements daily. She otherwise denies any chest pain, no shortness of breath, no nausea or vomiting, no diarrhea constipation, no urinary symptoms and no lower extremity edema. She reports not drinking or using drugs in a long time but relapsed tonight On arrival to the ED vitals are significant for temp of 98.6?, heart rate of 78, respiratory rate of 12, blood pressure of 148/61, satting 98% in room air. For WBC count of 15, hemoglobin of 8.7 (around her baseline,), sodium of 120 on 02/27),, BUN of 8, creatinine of 0.6 is Soma lactic acid of 2.3 which improved to 1.7 after fluids, total bili of 11.2, direct bili of 5.1, AST of 68, ALT of 20, alk-phos of 199, ammonia 90, BNP of 94, albumin of 2.6, UA negative for any evidence of infection, negative ethanol level chest x-ray negative for any pulmonary infection Past medical history: Alcoholic Liver cirrhosis, hyponatremia, ascites, COPD, chronic back pain Past surgical history: Cholecystectomy, then esophageal varices, back surgery Family history: Hypertension Social history: Comes from home, smokes cigarettes, she used heroin today around 8:00 p.m., denies alcohol use at this time Review of Systems Review of Systems: Yes all other systems are reviewed and are negative [facility] Medical History Anemia Anemia Anxiety Chronic back pain Chronic hyponatremia Cirrhosis Coagulopathy Congestive heart failure COPD (chronic obstructive pulmonary disease) COPD (chronic obstructive pulmonary disease) Depression Diabetes 1.5, managed as type 2 Hyponatremia Hyponatremia Liver disease Pneumonia PTSD (post-traumatic stress disorder) Thrombocytopenia Family History Other HTN (hypertension) Surgical History History of cholecystectomy Previous back surgery S/P TIPS (transjugular intrahepatic portosystemic shunt) Social History Household Members: Significant Other Housing: Apartment Alcohol intake: never Smoking Status: Current every day smoker Tobacco Type: Cigarette Packs Per Day: 0.5 Cigarettes Per Day: 10.0 Years Smoked: 40 Second Hand Smoke Exposure: No Use of substances other than those prescribed or required for medical reasons: Yes Substance Use Type: Heroin Substance Use Frequency: Occasionally Last Used Substance: Hours (ago) Advance Directives: No Advance Directives Information Provided: Yes service: No Current occupational status: unemployed Meds Allergies Allergy/AdvReac Type Severity Reaction Status Date / Time lamotrigine [From LAMICTAL] Allergy Intermediate RASH Verified 02/26/20 04:34 amoxicillin [AMOXICILLIN] Allergy Unknown NAUSEA & Verified 02/26/20 04:34 VOMITING Iodinated Contrast Media Allergy Unknown ANAPHYLAXIS Verified 02/26/20 04:34 [CONTRAST, IV] Sulfa (Sulfonamide Allergy Unknown UNKNOWN Verified 02/26/20 04:34 Antibiotics) [SULFA (SULFONAMIDE ANTIBIOTICS)] sulfamethoxazole Allergy Unknown UNK Verified 02/26/20 04:34 [From BACTRIM] trimethoprim [From BACTRIM] Allergy Unknown UNK Verified 02/26/20 04:34 Home Medications Medication Instructions Recorded Confirmed Type Xifaxan 550 mg PO BID 01/20/20 02/26/20 History folic acid 1 mg PO DAILY 01/20/20 02/26/20 History omeprazole 20 mg PO BID 01/20/20 02/26/20 History potassium chloride 40 meq PO DAILY 01/20/20 02/26/20 History risperidone 2 mg PO BEDTIME 01/20/20 02/26/20 History Flovent HFA 2 puff INHALATION BID 02/09/20 02/26/20 History albuterol sulfate 2 puff INHALATION Q4H PRN 02/09/20 02/26/20 History calcium carbonate [Antacid Ext Str 1 tab PO TID PRN 02/09/20 02/26/20 History (calcium carb)] thiamine HCl (vitamin B1) 100 mg PO DAILY 02/09/20 02/26/20 History baclofen 10 mg PO QPM 02/13/20 02/19/20 History cetirizine 10 mg PO DAILY 02/19/20 02/26/20 History gabapentin 600 mg PO TID 02/19/20 02/26/20 History glycerin (adult) 1 supp UT DAILY PRN 02/19/20 02/26/20 History metformin 750 mg PO BEDTIME 02/19/20 02/26/20 History pyridoxine (vitamin B6) 50 mg PO DAILY 02/19/20 02/26/20 History Stiolto Respimat 2 puff INHALATION DAILY 02/26/20 02/26/20 History Physical Exam Vital Signs and Narrative: Vital Signs: Last Vital Signs Temp 98.6 F 03/29/20 19:21 Pulse 90 03/29/20 23:04 Resp 15 03/29/20 23:04 BP 139/70 03/29/20 23:04 Pulse Ox 100 03/29/20 23:04 Body Mass Index 38.3 Const: Other: Somnolent but arousable, gives appropriate history to questions asked General: cooperative and no acute distress Eyes: General: appearance normal, both eyes and all related structures Pupils: Equal, round and reactive pupils present Resp: Effort & Inspection: normal respiratory effort and able to speak in complete sentences Cardio: Rate: regular rate Rhythm: regular rhythm GI: Palpation (GI): Soft to palpation Auscultation: normal bowel sounds Skin: General skin exam: no rashes or lesions noted Neuro: Cranial nerves: Yes Equal, round and reactive pupils present Cognition (Neuro): normal cognition Extrem: General: Yes normal to inspection and Yes no pedal edema Results Labs CBC and Chem 7: 03/30/20 04:15 03/29/20 20:08 Labs: Laboratory Results - last 24 hr 03/29/20 03/29/20 03/29/20 14:10 14:18 14:18 MCV 95.1 MCH 32.4 MCHC 34.1 RDW 18.6 H Plt Count 66 L MPV 10.9 Immature Gran % (Auto) 1.1 H Neut % (Auto) 81.5 H Lymph % (Auto) 5.8 L Winston % (Auto) 8.9 Eos % (Auto) 2.3 Baso % (Auto) 0.4 Lymph # (Auto) 0.8 L Winston # (Auto) 1.3 H Eos # (Auto) 0.3 Baso # (Auto) 0.1 Abs Immat Gran (auto) 0.16 H Absolute Neuts (auto) 11.6 H Absolute Nucleated RBC 0.000 Nucleated RBC % (auto) 0.0 Smear Tech's Comments Not Reportable PT 22.0 H INR 1.8 H APTT 48.4 H ABG pH ABG pCO2 ABG pO2 ABG HCO3 ABG O2 Saturation ABG Base Excess Oxygen Given Anion Gap Estim Creat Clear Calc Estimated GFR POC Glucose Random Glucose Osmolality Lactic Acid Lactic Acid Fup @ 2Hr Calcium Magnesium Total Bilirubin Direct Bilirubin AST ALT Alkaline Phosphatase Ammonia B-Natriuretic Peptide Total Protein Albumin Urine Color Urine Appearance Urine pH Ur Specific [place] Urine Protein Urine Glucose (UA) Urine Ketones Urine Blood Urine Nitrite Ur Leukocyte Esterase Urine RBC Urine WBC Ur Squamous Epith Cells Urine Bacteria Urine Osmolality Ur Random Sodium Urine Opiates Screen Acetaminophen Ur Barbiturates Screen Ur Phencyclidine Scrn Ur Amphetamines Screen U Benzodiazepines Scrn Urine Cocaine Screen U Marijuana (THC) Screen Ethyl Alcohol Coronavirus (PCR) NEGATIVE Influenza Type A (PCR) NEGATIVE Influenza Type B (PCR) NEGATIVE RSV RNA Qual (PCR) NEGATIVE 03/29/20 03/29/20 03/29/20 14:18 14:18 14:18 MCV MCH MCHC RDW Plt Count MPV Immature Gran % (Auto) Neut % (Auto) Lymph % (Auto) Winston % (Auto) Eos % (Auto) Baso % (Auto) Lymph # (Auto) Winston # (Auto) Eos # (Auto) Baso # (Auto) Abs Immat Gran (auto) Absolute Neuts (auto) Absolute Nucleated RBC Nucleated RBC % (auto) Smear Tech's Comments PT INR APTT ABG pH ABG pCO2 ABG pO2 ABG HCO3 ABG O2 Saturation ABG Base Excess Oxygen Given Anion Gap 13 Estim Creat Clear Calc 94.5 Estimated GFR > 60 POC Glucose Random Glucose 152 H Osmolality Lactic Acid 3.2 H* Lactic Acid Fup @ 2Hr Calcium 8.1 L Magnesium 1.8 Total Bilirubin 11.2 H Direct Bilirubin 5.1 H AST 68 H ALT 20 Alkaline Phosphatase 199 H D Ammonia B-Natriuretic Peptide 94 Total Protein 6.4 L Albumin 2.6 L Urine Color Urine Appearance Urine pH Ur Specific [place] Urine Protein Urine Glucose (UA) Urine Ketones Urine Blood Urine Nitrite Ur Leukocyte Esterase Urine RBC Urine WBC Ur Squamous Epith Cells Urine Bacteria Urine Osmolality Ur Random Sodium Urine Opiates Screen Acetaminophen < 1 Ur Barbiturates Screen Ur Phencyclidine Scrn Ur Amphetamines Screen U Benzodiazepines Scrn Urine Cocaine Screen U Marijuana (THC) Screen Ethyl Alcohol Coronavirus (PCR) Influenza Type A (PCR) Influenza Type B (PCR) RSV RNA Qual (PCR) 03/29/20 03/29/20 03/29/20 14:18 14:19 14:19 MCV MCH MCHC RDW Plt Count MPV Immature Gran % (Auto) Neut % (Auto) Lymph % (Auto) Winston % (Auto) Eos % (Auto) Baso % (Auto) Lymph # (Auto) Winston # (Auto) Eos # (Auto) Baso # (Auto) Abs Immat Gran (auto) Absolute Neuts (auto) Absolute Nucleated RBC Nucleated RBC % (auto) Smear Tech's Comments PT INR APTT ABG pH ABG pCO2 ABG pO2 ABG HCO3 ABG O2 Saturation ABG Base Excess Oxygen Given Anion Gap Estim Creat Clear Calc Estimated GFR POC Glucose 144 H Random Glucose Osmolality Lactic Acid Lactic Acid Fup @ 2Hr Calcium Magnesium Total Bilirubin Direct Bilirubin AST ALT Alkaline Phosphatase Ammonia 81 H B-Natriuretic Peptide Total Protein Albumin Urine Color Urine Appearance Urine pH Ur Specific [place] Urine Protein Urine Glucose (UA) Urine Ketones Urine Blood Urine Nitrite Ur Leukocyte Esterase Urine RBC Urine WBC Ur Squamous Epith Cells Urine Bacteria Urine Osmolality Ur Random Sodium Urine Opiates Screen Acetaminophen Ur Barbiturates Screen Ur Phencyclidine Scrn Ur Amphetamines Screen U Benzodiazepines Scrn Urine Cocaine Screen U Marijuana (THC) Screen Ethyl Alcohol < 10 Coronavirus (PCR) Influenza Type A (PCR) Influenza Type B (PCR) RSV RNA Qual (PCR) 03/29/20 03/29/20 03/29/20 15:00 16:18 16:22 MCV MCH MCHC RDW Plt Count MPV Immature Gran % (Auto) Neut % (Auto) Lymph % (Auto) Winston % (Auto) Eos % (Auto) Baso % (Auto) Lymph # (Auto) Winston # (Auto) Eos # (Auto) Baso # (Auto) Abs Immat Gran (auto) Absolute Neuts (auto) Absolute Nucleated RBC Nucleated RBC % (auto) Smear Tech's Comments PT INR APTT ABG pH 7.35 ABG pCO2 48 H ABG pO2 79 L ABG HCO3 26 ABG O2 Saturation 94.8 ABG Base Excess -0.3 Oxygen Given ROOM AIR Anion Gap Estim Creat Clear Calc Estimated GFR POC Glucose Random Glucose Osmolality Lactic Acid Lactic Acid Fup @ 2Hr Calcium Magnesium Total Bilirubin Direct Bilirubin AST ALT Alkaline Phosphatase Ammonia B-Natriuretic Peptide Total Protein Albumin Urine Color Urine Appearance Urine pH Ur Specific [place] Urine Protein Urine Glucose (UA) Urine Ketones Urine Blood Urine Nitrite Ur Leukocyte Esterase Urine RBC Urine WBC Ur Squamous Epith Cells Urine Bacteria Urine Osmolality 196 L Ur Random Sodium < 20.0 Urine Opiates Screen Acetaminophen Ur Barbiturates Screen Ur Phencyclidine Scrn Ur Amphetamines Screen U Benzodiazepines Scrn Urine Cocaine Screen U Marijuana (THC) Screen Ethyl Alcohol Coronavirus (PCR) Influenza Type A (PCR) Influenza Type B (PCR) RSV RNA Qual (PCR) 03/29/20 03/29/20 03/29/20 16:22 16:22 19:01 MCV MCH MCHC RDW Plt Count MPV Immature Gran % (Auto) Neut % (Auto) Lymph % (Auto) Winston % (Auto) Eos % (Auto) Baso % (Auto) Lymph # (Auto) Winston # (Auto) Eos # (Auto) Baso # (Auto) Abs Immat Gran (auto) Absolute Neuts (auto) Absolute Nucleated RBC Nucleated RBC % (auto) Smear Tech's Comments PT INR APTT ABG pH ABG pCO2 ABG pO2 ABG HCO3 ABG O2 Saturation ABG Base Excess Oxygen Given Anion Gap Estim Creat Clear Calc Estimated GFR POC Glucose Random Glucose Osmolality Lactic Acid Lactic Acid Fup @ 2Hr 2.3 H* Calcium Magnesium Total Bilirubin Direct Bilirubin AST ALT Alkaline Phosphatase Ammonia B-Natriuretic Peptide Total Protein Albumin Urine Color YELLOW Urine Appearance CLEAR Urine pH 6.5 Ur Specific [place] 1.015 Urine Protein NEG Urine Glucose (UA) NEG Urine Ketones NEG Urine Blood 2+ H Urine Nitrite NEG Ur Leukocyte Esterase NEG Urine RBC 1-4 Urine WBC 0 Ur Squamous Epith Cells TRACE Urine Bacteria TRACE Urine Osmolality Ur Random Sodium Urine Opiates Screen POSITIVE H Acetaminophen Ur Barbiturates Screen Not Detected Ur Phencyclidine Scrn Not Detected Ur Amphetamines Screen Not Detected U Benzodiazepines Scrn Not Detected Urine Cocaine Screen Not Detected U Marijuana (THC) Screen Not Detected Ethyl Alcohol Coronavirus (PCR) Influenza Type A (PCR) Influenza Type B (PCR) RSV RNA Qual (PCR) 03/29/20 03/29/20 03/29/20 19:01 20:08 20:08 MCV MCH MCHC RDW Plt Count MPV Immature Gran % (Auto) Neut % (Auto) Lymph % (Auto) Winston % (Auto) Eos % (Auto) Baso % (Auto) Lymph # (Auto) Winston # (Auto) Eos # (Auto) Baso # (Auto) Abs Immat Gran (auto) Absolute Neuts (auto) Absolute Nucleated RBC Nucleated RBC % (auto) Smear Tech's Comments PT INR APTT ABG pH ABG pCO2 ABG pO2 ABG HCO3 ABG O2 Saturation ABG Base Excess Oxygen Given Anion Gap Cancelled 14 Estim Creat Clear Calc Cancelled 106.0 Estimated GFR Cancelled > 60 POC Glucose Random Glucose Cancelled 143 H Osmolality Lactic Acid Lactic Acid Fup @ 2Hr Calcium Cancelled 8.0 L Magnesium Total Bilirubin Direct Bilirubin AST ALT Alkaline Phosphatase Ammonia 90 H B-Natriuretic Peptide Total Protein Albumin Urine Color Urine Appearance Urine pH Ur Specific [place] Urine Protein Urine Glucose (UA) Urine Ketones Urine Blood Urine Nitrite Ur Leukocyte Esterase Urine RBC Urine WBC Ur Squamous Epith Cells Urine Bacteria Urine Osmolality Ur Random Sodium Urine Opiates Screen Acetaminophen Ur Barbiturates Screen Ur Phencyclidine Scrn Ur Amphetamines Screen U Benzodiazepines Scrn Urine Cocaine Screen U Marijuana (THC) Screen Ethyl Alcohol Coronavirus (PCR) Influenza Type A (PCR) Influenza Type B (PCR) RSV RNA Qual (PCR) 03/29/20 03/29/20 20:08 20:08 MCV MCH MCHC RDW Plt Count MPV Immature Gran % (Auto) Neut % (Auto) Lymph % (Auto) Winston % (Auto) Eos % (Auto) Baso % (Auto) Lymph # (Auto) Winston # (Auto) Eos # (Auto) Baso # (Auto) Abs Immat Gran (auto) Absolute Neuts (auto) Absolute Nucleated RBC Nucleated RBC % (auto) Smear Tech's Comments PT INR APTT ABG pH ABG pCO2 ABG pO2 ABG HCO3 ABG O2 Saturation ABG Base Excess Oxygen Given Anion Gap Estim Creat Clear Calc Estimated GFR POC Glucose Random Glucose Osmolality 257 L Lactic Acid 1.7 Lactic Acid Fup @ 2Hr Calcium Magnesium Total Bilirubin Direct Bilirubin AST ALT Alkaline Phosphatase Ammonia B-Natriuretic Peptide Total Protein Albumin Urine Color Urine Appearance Urine pH Ur Specific [place] Urine Protein Urine Glucose (UA) Urine Ketones Urine Blood Urine Nitrite Ur Leukocyte Esterase Urine RBC Urine WBC Ur Squamous Epith Cells Urine Bacteria Urine Osmolality Ur Random Sodium Urine Opiates Screen Acetaminophen Ur Barbiturates Screen Ur Phencyclidine Scrn Ur Amphetamines Screen U Benzodiazepines Scrn Urine Cocaine Screen U Marijuana (THC) Screen Ethyl Alcohol Coronavirus (PCR) Influenza Type A (PCR) Influenza Type B (PCR) RSV RNA Qual (PCR) Imaging Radiologist's Impressions: Impressions Chest X-Ray 03/29/20 14:00 IMPRESSION: Enterogastric tube with its tip in appropriate position. Head CT 03/29/20 14:01 IMPRESSION: Motion artifact limits evaluation. Within this limitation, no acute intracranial pathology. Abdomen Ultrasound 03/29/20 15:29 IMPRESSION: Limited evaluation due to overlying bowel gas and patient immobility. Within this limitation: 1. Chronic liver disease. 2. Status post TIPS. Flow visualized within the TIPS, however due to examination limitations direction of flow and flow velocities were not obtained. Assessment and Plan (1) Acute hepatic encephalopathy: Status: Acute (2) Acute liver failure: Qualifiers: Hepatic coma status: with hepatic coma Qualified Code(s): K72.01 - Acute and subacute hepatic failure with coma Status: Acute (3) Acute hyponatremia: Status: Acute (4) Heroin abuse: Status: Acute 55-year-old female with past medical history of liver cirrhosis and recurrent admission for acute hepatic encephalopathy secondary to noncompliance returned today after using heroin and also being more confused and not feeling well # hepatic encephalopathy - 2/2 to noncompliance with lactulose - elevated ammoniaof 90 - pt also abused heroin and appears to be more abtunded as a result - After giving one dose of 0.4 Narcan pt became more alert, conversive and oriented plan: - will resume her lactulose q.i.d. of the target of 3-4 BMs daily - follow mental status # Opioid abuse - responded to Narcan given twice in the ED - Pt reports has not taken Narcan in a long time but relapsed tonight - WIll monitor for withdrawal - Continue hydroxyzine # Hyponatremia - Most likely 2/2 liver ds - Has Na of 120 on arrival, last Na from february - confusion most likely related to heroin as well as hepatic encephalopathy and less likely to be 2/2 to hyponatremia - Nephrology recommended 500 cc of NS and reevaluation - will follow bmp q4 hr - Nephrology recs appreciated # alcoholic liver cirrhosis s/p TIPDS - associated anemia, thrombocytopenia, coagulopathy and elevated bili - Abd US shows flow within the TIPS although velocity undetermined - continue Aldactone, rifaximin, torsemid will be switched to Furosemide # anemia - chronic - currently H&H at baseline - follow CBC # thrombocytopenia - related to liver disease - follow CBC diabetes - SSI, POC chronic back pain - continue gabapentin mood - hold Ativan to avoid excessive sedation DVT prophylaxis: SCDs
[2020-03-30] VITALS (17 sets, daily range): BP systolic 103–141; BP diastolic 40–69; PULSE 81–120; RESP 6–22; TEMP 35.4–36.7; O2SAT 93–100; BMI 36.8
--- NOTE | 2020-03-30 | XR_ITS ---
EXAMINATION: XR CHEST CLINICAL INFORMATION: Pulmonary congestion. COMPARISON: Chest 03/29/2020 TECHNIQUE: Frontal view of the chest was obtained. FINDINGS: The the tip of enteric tube on the first image is in the distal esophagus. On the second image is in the fundus and needs to be advanced at least by 8 to 10 cm for the entire tip and the endometrial to be within the stomach. The lungs are expanded and clear. Heart size upper vascularity is normal. No gross bony abnormality seen. XR/XR chest 1V IMPRESSION: The tip of enteric tube is at the fundus and needs to be advanced at least by 10 cm. The lungs are clear.
[2020-03-30] MEDS: Naloxone HCl 0.4 MG/ML VIAL IVPUSH (01:37)
[2020-03-30 04:21] LABS: Basophils Absolute Auto 0.1 X10*3/uL (0.0-0.2); Basophils Percent Auto 0.3 % (0-2); Eosinophils Absolute Auto 0.3 X10*3/uL (0.0-0.4); Eosinophils Percent Auto 2.2 % (0-4); Hemoglobin 8.7 g/dl (12.0-16.0); MANUAL DIFF FLAG SCAN; Monocytes Percent Auto 10.3 % (2-11); PLT CLUMP 1; SCAN SMEAR FLAG 1
[2020-03-30 04:22] LABS: Hematocrit 24.9 % (37-47); Imm Gran Abs Auto 0.13 X10*3/uL (0.00-0.03); Imm Gran Pct Auto 0.9 % (0.0-0.4); Lymphocytes Absolute Auto 1.1 X10*3/uL (1.2-4.9); Lymphocytes Percent Auto 7.4 % (20-40); Mean Corpuscular HGB Conc 34.9 g/dl (31.0-35.0); Mean Corpuscular Volume 94.3 fL (80-98); Mean Platelet Volume 11.2 fL (9.4-12.3); Monocytes Absolute Auto 1.6 X10*3/uL (0.1-1.2); Neutrophils Absolute Auto 11.9 X10*3/uL (2.0-8.3); Neutrophils Percent Auto 78.9 % (45-73); Red Blood Count 2.64 X10*6/uL (4.20-5.50); Red Cell Distribution Width 18.4 % (11.0-16.0)
[2020-03-30 04:24] LABS: Platelet Count 75 X10*3/uL (160-400)
[2020-03-30 04:58] LABS: SLIDE REVIEW VERIFIED
[2020-03-30 06:57] LABS: Anion Gap 13 (12-20); Blood Urea Nitrogen 9 mg/dL (9-16); Calcium 8.2 mg/dL (8.4-10.2); Carbon Dioxide 25 mmol/L (22-29); Chloride 88 mmol/L (96-108); Creatinine Clr Calc Pharmacy 98.5; Estimated Glomerular Filt Rate > 60; Glucose Random 85 mg/dL (60-115); Potassium 5.3 mmol/l (3.3-5.1); Sodium 121 mmol/L (135-145)
[2020-03-30] MEDS: Lactulose 20 GM/30 ML SOLUTION 30 GM PO ×4 (09:05→23:50)
--- NOTE | 2020-03-30 09:12 | PC.NURSE ---
pt refused breakfast at this time.
[2020-03-30 09:14] LABS: Glucose, Whole Blood 86 mg/dL (60-115)
--- NOTE | 2020-03-30 09:22 | PC.NURSE ---
pt denies any si/hi and states i want to live .
--- NOTE | 2020-03-30 09:24 | PC.NURSE ---
lungs - audible wheezing
--- NOTE | 2020-03-30 10:04 | PC.NURSE ---
dr. herrera at bedside, pt aware of plan of care.
[2020-03-30 10:37] LABS: Ammonia 85 umol/L (13-55)
[2020-03-30 11:03] LABS: Anion Gap 13 (12-20); Blood Urea Nitrogen 9 mg/dL (9-16); Calcium 8.2 mg/dL (8.4-10.2); Carbon Dioxide 24 mmol/L (22-29); Chloride 89 mmol/L (96-108); Creatinine Clr Calc Pharmacy 98.5; Estimated Glomerular Filt Rate > 60; Glucose Random 97 mg/dL (60-115); Potassium 5.1 mmol/l (3.3-5.1); Sodium 121 mmol/L (135-145)
--- NOTE | 2020-03-30 11:58 | P.CONNP_ITS ---
History of Present Illness Reason for Consult Consult date: 03/30/20 Reason for consult: hypona Chief Complaint Chief complaint: HEPATIC ENCEPHALOPATHY History of Present Illness Narrative: 55 y/o wF adm AMS with h/o cirrhosis and multiple hosp in past ands noted SNa 120. Very lethargic c/w HE and info obtaineed from EHR and d/w ER staff. Has not had any diarrhea yet and only 2 doses of lactulose since adm with th e 2nd dose just given now. Review of Systems Review of Systems lethargic and unobtainable Yes all other systems are reviewed and are negative and Unobtainable due to mental status PMFSH Past Medical History Medical History Anemia Anemia Anxiety Chronic back pain Chronic hyponatremia Cirrhosis Coagulopathy Congestive heart failure COPD (chronic obstructive pulmonary disease) COPD (chronic obstructive pulmonary disease) Depression Diabetes 1.5, managed as type 2 Hyponatremia Hyponatremia Liver disease Pneumonia PTSD (post-traumatic stress disorder) Thrombocytopenia Family History Family History Other HTN (hypertension) Surgical History Surgical History History of cholecystectomy Previous back surgery S/P TIPS (transjugular intrahepatic portosystemic shunt) Social History Social History Household Members: Significant Other Housing: Apartment Alcohol intake: never Smoking Status: Current every day smoker Tobacco Type: Cigarette Packs Per Day: 0.5 Cigarettes Per Day: 10.0 Years Smoked: 40 Second Hand Smoke Exposure: No Use of substances other than those prescribed or required for medical reasons: Yes Substance Use Type: Heroin Substance Use Frequency: Occasionally Last Used Substance: Hours (ago) Advance Directives: No Advance Directives Information Provided: Yes service: No Current occupational status: unemployed Meds Allergies Allergy/AdvReac Type Severity Reaction Status Date / Time lamotrigine [From LAMICTAL] Allergy Intermediate RASH Verified 02/26/20 04:34 amoxicillin [AMOXICILLIN] Allergy Unknown NAUSEA & Verified 02/26/20 04:34 VOMITING Iodinated Contrast Media Allergy Unknown ANAPHYLAXIS Verified 02/26/20 04:34 [CONTRAST, IV] Sulfa (Sulfonamide Allergy Unknown UNKNOWN Verified 02/26/20 04:34 Antibiotics) [SULFA (SULFONAMIDE ANTIBIOTICS)] sulfamethoxazole Allergy Unknown UNK Verified 02/26/20 04:34 [From BACTRIM] trimethoprim [From BACTRIM] Allergy Unknown UNK Verified 02/26/20 04:34 Home Medications Medication Instructions Recorded Confirmed Type Xifaxan 550 mg PO BID 01/20/20 02/26/20 History folic acid 1 mg PO DAILY 01/20/20 02/26/20 History omeprazole 20 mg PO BID 01/20/20 02/26/20 History potassium chloride 40 meq PO DAILY 01/20/20 02/26/20 History risperidone 2 mg PO BEDTIME 01/20/20 02/26/20 History Flovent HFA 2 puff INHALATION BID 02/09/20 02/26/20 History albuterol sulfate 2 puff INHALATION Q4H PRN 02/09/20 02/26/20 History calcium carbonate [Antacid Ext Str 1 tab PO TID PRN 02/09/20 02/26/20 History (calcium carb)] thiamine HCl (vitamin B1) 100 mg PO DAILY 02/09/20 02/26/20 History baclofen 10 mg PO QPM 02/13/20 02/19/20 History cetirizine 10 mg PO DAILY 02/19/20 02/26/20 History gabapentin 600 mg PO TID 02/19/20 02/26/20 History glycerin (adult) 1 supp NC DAILY PRN 02/19/20 02/26/20 History metformin 750 mg PO BEDTIME 02/19/20 02/26/20 History pyridoxine (vitamin B6) 50 mg PO DAILY 02/19/20 02/26/20 History Stiolto Respimat 2 puff INHALATION DAILY 02/26/20 02/26/20 History Physical Exam Vital Signs: Last Vital Signs Temp 98.0 F 03/30/20 01:29 Pulse 93 03/30/20 08:06 Resp 16 03/30/20 08:06 BP 141/65 H 03/30/20 08:06 Pulse Ox 100 03/30/20 08:06 Body Mass Index 38.3 Const General: cooperative and no acute distress Eyes General: appearance normal, both eyes and all related structures Pupils: Equal, round and reactive pupils present Resp Effort & Inspection: normal respiratory effort and able to speak in complete sentences Cardio Rate: regular rate Rhythm: regular rhythm GI Palpation (GI): Soft to palpation Auscultation: normal bowel sounds Skin General skin exam: no rashes or lesions noted Neuro Cranial nerves: Yes Equal, round and reactive pupils present Cognition (Neuro): normal cognition Extrem General: Yes normal to inspection and Yes no pedal edema Results Lab Results Result Diagrams: 03/30/20 04:15 03/30/20 10:07 Lab results: Chemistry 03/29/20 03/29/20 03/29/20 14:18 19:01 20:08 Sodium 120 L* Cancelled 121 L Potassium 3.6 Cancelled 5.1 D Carbon Dioxide 26 Cancelled 24 BUN 7 L Cancelled 8 L Creatinine 0.74 Cancelled 0.66 Calcium 8.1 L Cancelled 8.0 L 03/30/20 03/30/20 06:08 10:07 Sodium 121 L 121 L Potassium 5.3 H 5.1 Carbon Dioxide 25 24 BUN 9 9 Creatinine 0.71 0.71 Calcium 8.2 L 8.2 L Hematology 03/29/20 03/30/20 14:18 04:15 WBC 14.2 H 15.0 H Hgb 9.3 L 8.7 L Plt Count 66 L 75 L Urinalysis 03/29/20 16:22 Urine Color YELLOW Urine Appearance CLEAR Urine pH 6.5 Ur Specific [place] 1.015 Urine Protein NEG Urine Glucose (UA) NEG Urine Ketones NEG Urine Blood 2+ H Urine Nitrite NEG Ur Leukocyte Esterase NEG Urine RBC 1-4 Urine WBC 0 Ur Squamous Epith Cells TRACE Urine Studies 03/29/20 16:22 Urine Osmolality 196 L Laboratory Tests 01/20/20 01/21/20 03/29/20 03:42 00:34 14:18 Sodium 117 L* 124 L 120 L* 03/29/20 03/30/20 20:08 10:07 Sodium 121 L 121 L Assessment and Plan (1) Acute hepatic encephalopathy: Status: Acute (2) Acute liver failure: Qualifiers: Hepatic coma status: with hepatic coma Qualified Code(s): K72.01 - Acute and subacute hepatic failure with coma Status: Acute (3) Acute hyponatremia: Status: Acute (4) Heroin abuse: Status: Acute Hypervol HypoNa in cirrotic patrientt: c/w non-osmotic incr ADH and interestingly her Uosm 196 is not as high as would have been expected Goal is to incr SNa gradually 4-6 meq/24 hrs to avoid risk of CPM. Lactulose once it kicks in and cause diarrhea will help incr SNa. May need IV NS and/or NaCl tabs as we track SNa; cont PO fluid restiction; avoid using 3 % saline if possible will need freq SNa checks and I rec getting a PIC line to facilitate lab checks Will follow with team
[2020-03-30 12:00] LABS: Glucose, Whole Blood 112 mg/dL (60-115)
--- NOTE | 2020-03-30 12:40 | PC.NURSE ---
AT 1230 PT APPEARS SLEEPY/LETHARGIC, HARD TO AROSE, BREATHING EVEN AND UNLABORED. VS WITHIN THE NORMAL LIMITS. PT WAKES UP ANSWERS QUESTIONS APPROPRIATELY. UPPER CHEST CONGESTION ENCOURAGED TO COUGH.
--- NOTE | 2020-03-30 12:45 | PC.NURSE ---
pt's hob is 90 degrees. pt given 2 sips of lactaluse that was ordered, pt appears more congestion, ? aspiration. dr. li aware. decision per dr. li to place ng-tube and bess cath.
[2020-03-30] MEDS: LORazepam 2 MG/ML VIAL 1 MG IVPUSH (13:05)
[2020-03-30 13:09] LABS: Pt Ventilation O2% 2 L
[2020-03-30] MEDS: Albuterol/Iprat 2.5/0.5MG 3 ML AMPUL.NEB INHALE ×2 (13:12→19:47)
[2020-03-30 13:14] LABS: ABG PCO2 54 mmHg (32-45); Base Excess ABG 4.7; HCO3 ABG 31 mmol/L (22-26); PO2 ABG 91 mmHg (83-108); pH ABG 7.36 (7.35-7.45)
--- NOTE | 2020-03-30 13:15 | PC.NURSE ---
NS 100ML, TOTAL VOLUME TO BE GIVEN IS 300ML THEN LAB WORK PER DR. MINER.
--- NOTE | 2020-03-30 13:15 | PC.NURSE ---
dr. li at bedside, this rn attempted to insert ng tube pt sat straight up in bed and admantly refused screaming i don't want it x 3.
--- NOTE | 2020-03-30 13:16 | PC.NURSE ---
THIS RN IS UNABLE TO CHART NS 100ML/HR, TOTAL TO BE GIVEN 300ML DUE TO HOW ORDER IS WRITTEN DR. MINER IS AWARE. NS IS INFUSING.
--- NOTE | 2020-03-30 14:00 | PC.NURSE ---
16fr ng tube placed to l nares and bess cath placed. bess patent and drained 350ml slight brown color on insertion.
--- NOTE | 2020-03-30 14:20 | P.PNIM_ITS ---
Subjective Subjective Date of Service: 03/30/20 Interval History: Seen in follow-up for hepatic encephalopathy, hyponatremia. This patient who is well known to the hospitalist service with a chronic alcoholism and recurrent hospitalization for hepatic encephalopathy as well as hyponatremia presented yet again on this location with confusion and found to have elevated ammonia level consistent with hepatic encephalopathy also was noted to have severe hyponatremia with sodium level of 121. She received a dose of lactulose overnight and this morning she seems fairly confused nearly obtu nded although she is able to easily arouse. She has been able to take another dose of her lactulose and has been refusing insertion of NG tube. She was having some episode of shakiness which raise concerns patient for possible a seizure although she comes out of it rather quickly Review of Systems No fever No chest pain no shortness of breath Confused. Physical Exam Vital Signs: Vital Signs: Last Vital Signs Temp 98.0 F 03/30/20 01:29 Pulse 112 H 03/30/20 13:16 Resp 20 03/30/20 12:04 BP 115/40 L 03/30/20 12:04 Pulse Ox 98 03/30/20 12:04 Body Mass Index 38.3 Constitutional very somnolent but easily aroused and become very agitated Eyes--sclera icteris Neck Supple, No lymphadenopathy Cardiovascular RRR, No M/R/G, S1 S2, No S3 S4, 1+pedal edema Respiratory Lungs clear, No respiratory distress, audible rhonchid Gastrointestinal Non tender, Non-distended, no distention Skin No rash, jaunice Neurological Oriented to self Psychological flat Objective Data Current Medications Generic Name Dose Route Start Last Admin Trade Name Kate PRN Reason Stop Dose Admin Albuterol/Ipratropium 3 ml 03/30/20 14:00 03/30/20 13:12 Albuterol/Iprat 2.5/0.5mg 3 Ml Ampul.Neb INHALE 3 ml RQ6H WHILE AWAKE LILLI Administration Sodium Chloride 1,000 mls @ 100 mls/hr 03/30/20 12:45 Ns IVCONT 03/30/20 15:44 .Q10H [facility] Insulin Human Lispro 0 unit 03/30/20 07:30 03/30/20 13:36 Insulin Lispro 100 Unit/Ml 3 Ml Vial SUBCUT Not Given QIDACHS [facility] Protocol Lactulose 30 gm 03/30/20 09:00 03/30/20 12:35 Lactulose 20 Gm/30 Ml Solution PO 30 gm QID LILLI Administration Ondansetron HCl 4 mg 03/29/20 22:11 Ondansetron Hcl 4 Mg/2 Ml Vial IVPUSH Q8H PRN Nausea and Vomiting Sodium Chloride 1 gm 03/30/20 15:00 Sodium Chloride Tab 1 Gm Tablet PO TID LILLI Labs CBC & Chem 7: 03/30/20 04:15 03/30/20 10:07 Assessment and Plan (1) Acute hepatic encephalopathy: Status: Acute (2) Acute liver failure: Status: Acute (3) Acute hyponatremia: Status: Acute (4) Heroin abuse: Status: Acute Assessment and Plan: 55-year-old female with past medical history of liver cirrhosis and recurrent admission for acute hepatic encephalopathy secondary to noncompliance returned today after using heroin and also being more confused and not feeling well # hepatic encephalopathy - 2/2 to noncompliance with lactulose - elevated ammoniaof 90 has come down to 85 and stll confused - pt also abused heroin and appears to be more bbtunded as a result - She was given Narcan plan: - will resume her lactulose 45 q.i.d. of the target of 3-4 BMs daily if not able to take by mouth insert NGT -Spoke to ICU about this and if decline further will go to the ICU # Opioid abuse - responded to Narcan given twice in the ED - Pt reports has not taken Narcotics in a long time but relapsed tonight - WIll monitor for withdrawal - Continue hydroxyzine or Ativan maybe given and if BP allows clonidine # Hyponatremia--Likely from chronic liver disease, and polydipsia -Dr. Coppola is following , here is his recommendation: Goal is to incr SNa gradually 4-6 meq/24 hrs to avoid risk of CPM. Lactulose once it kicks in and cause diarrhea will help incr SNa. May need IV NS and/or NaCl tabs as we track SNa; cont PO fluid restiction; avoid using 3 % saline if possible. A PICC line was requested but radiology declined citing that a blood culture has been sent and they won't do until then. I could not convince the department that there is no concern for infection and that blood cultures were done routinely in ED # alcoholic liver cirrhosis s/p TIPDS - associated anemia, thrombocytopenia, coagulopathy and elevated bili - Abd US shows flow within the TIPS although velocity undetermined - continue Aldactone, rifaximin, torsemid will be switched to Furosemide # anemia - chronic - currently H&H at baseline - follow CBC # thrombocytopenia - related to liver disease - follow CBC diabetes - SSI, POC chronic back pain - continue gabapentin mood - hold Ativan if possible, but note that a one time dose was given in ED when patient became agitated and showing signs of possible seizure DVT prophylaxis: SCDs
--- NOTE | 2020-03-30 14:40 | PC.NURSE ---
cxr done for placement of ng tube. pt desat to 84 on 1.5l/m via n/c.
--- NOTE | 2020-03-30 14:51 | MHC.CM.PN ---
Pt with AMS. Unable to answer questions. Call into HCP Loida Nicole ([phone]). Message left to return call. Will follow for d/c needs
[2020-03-30] MEDS: Sodium Chloride Tab 1 GM TABLET PO (15:00)
--- NOTE | 2020-03-30 15:05 | PC.NURSE ---
ng tube was advance by luis leo) after chest xray was done.
--- NOTE | 2020-03-30 15:06 | PC.NURSE ---
02 sat 97% on 3l/m via n/c.
--- NOTE | 2020-03-30 15:09 | MHC.CM.NN ---
AMS. Pt unable to answer CM questions. Call to Loida Nicole, DANG, ([phone]). Voice mail - stated chago leave a message. Unable to verify identity of voice mail. Left message for DANG [place]. To call CM at [phone] regarding Madisyn Nicole. IMM no contact rep completed and IMM sent to Byron Valente Clayton (Address on HCP). Unable to complete CM assessment at this time. Pt an INPT admit in ED. Waiting for a bed. Will continue to follow
--- NOTE | 2020-03-30 16:05 | PC.NURSE ---
NURSE TO NURSE GIVEN TO HERBIE PearlRN).
[2020-03-30 16:46] LABS: Anion Gap 12 (12-20); Blood Urea Nitrogen 11 mg/dL (9-16); Calcium 8.2 mg/dL (8.4-10.2); Carbon Dioxide 26 mmol/L (22-29); Chloride 90 mmol/L (96-108); Creatinine Clr Calc Pharmacy 69.3; Estimated Glomerular Filt Rate 57; Glucose Random 130 mg/dL (60-115); Sodium 123 mmol/L (135-145)
[2020-03-30] MEDS: Etomidate 20 MG/10 ML VIAL IVPUSH (16:53)
--- NOTE | 2020-03-30 17:15 | PC.NURSE ---
1645 - DECISION TO INTUBATE BY DR. MORA. PT UNABLE TO MAINTAIN HER AIRWAY. RESP 8. 1650 - PT IS BEING DEEP SUCTION BY TIMOTHY (RESP THERAPIST) 1653 - ETOMIDATE 20MG IVP X 1 GIVEN BY THIS RN 1655 - ET TUBE SIZE 7.5, 21CM AT THE LIP. PT WEIGHS 98.1KG 1659 - MED X 1 WITH ROCURONUIM 90MG IVP X 1 BY THIS RN. VENT SETTINGS RAT3 16, PEEP 5, TIDAL VOLUME 500. 1702 - VS 105-100%-97.5 (CORE)-114/46 MAP 69. 1707 - VS 123/86-53-13-100%. CAPNOGRAPHY 41.
[2020-03-30 17:41] LABS: Glucose, Whole Blood 127 mg/dL (60-115)
--- NOTE | 2020-03-30 19:10 | PC.NURSE ---
NURSE TO NURSE GIVEN TO RODOLFO (ELTON), PT IS BEING ADMITTED TO ICU.
[2020-03-30] MEDS: propofoL 1,000 MG/100 ML VIAL 11.42 MG IVCONT (19:23)
--- NOTE | 2020-03-30 19:52 | PC.NURSE ---
SOFT RESTRAINTS APPLIED AT 19:23. PT IS INTUBATED AT THIS TIME, ON VENTILATOR. ET TUBE 7.5, 21 AT THE LIP. TRANSFERED TO ICU ROOM 254, REPORT GIVEN TO ELTON REYNOLDS BY ELTON AGUIRRE.
--- NOTE | 2020-03-30 20:19 | P.HPCC_ITS ---
History of Present Illness Date of Service: 03/30/20 <MARYLU Menendez - Last Filed: 03/31/20 19:14> Chief Complaint: Chief complaint: Hepatic encephalopathy, heroin OD <MARYLU Menendez - Last Filed: 03/31/20 19:14> HPI: This is a 55-year-old well-known female has underlying history of alcoholic liver cirrhosis, hyponatremia, ascites, COPD who is well known to this hospital. Reportedly the patient had recently relapsed using drugs and alcohol last night, she was seen in the emergency room with normal vital signs but had a white count [id number], sodium of 120 and lactic acid of 2.3 which improved with IV fluids. At the time of her ammonia level had been 90 she was given some lactulose with some improvement. It is unclear if the patient left the hospital but apparently came back to emergency room and she was noted to be obtunded, Narcan was given with quick improvement of her mental status. Patient had been admitted to the hospital, overnight the patient had received some lactulose but later on she was refusing the administration via the NG tube or its insertion. The patient had some episodes of shakiness which were concerning for possible seizure although the patient over came these quickly. Given the agitation and ongoing confusion, the patient was intubated and transferred to the ICU for further care. ROS: Unobtainable Past Medical History: Anemia Anxiety Chronic back pain Chronic hyponatremia Coagulopathy CHF Diabetes PTSD Thrombocytopenia Past Surgical History: Cholecystectomy Previous back surgery Status post TIPS Family history: Hypertension Social History: Is known to leave a home, ongoing ex-smoker with half pack per day, known to use heroin and to drink alcohol. CODE STATUS: FULL CODE Allergies: Lamictal (rash, amoxicillin (nausea and vomiting, iodine (anaphylaxis, sulfa (unknown) Home Medications: Please see med rec PHYSICAL EXAM: VS: 103/40, heart rate 87, respirations 16 O2 sat 100% while on a ventilator with the following settings VENT SETTINGS : General: Intubated and sedated Skin: Jaundice, there is no lesions, erythema or edema of the upper, lower extremities or torso. HEENT: Head is normocephalic, atraumatic, pupils equal round , minimally r eactive bilaterally. Mucous mucosa is dry. Neck is supple no JVD. Cardiac: Clear S1-S2, no murmurs rubs or gallops. Pulmonary: Clear to auscultation, no wheezes, rales or rhonchi. Abdomen: Protuberant, large, slightly distended, capud medusa Musculoskeletal: Passive range of motion of the upper lower extremities at the major joints do not elicit any cogwheeling or stiffness. Neurologic: As above, intubated and sedated. Motor strength as above. Vascular: 2+ pulses upper and lower extremities distally. SIGNIFICANT LABORATORY DATA: White blood cells 15.0, hemoglobin 8.7, hematocrit 24.9, platelet count 75. Sodium 123, potassium 5.0, chloride 90, carbon dioxide 26, BUN 11 creation, creatinine 1.01 , ammonia 85. ABG pH 7.36, pCO2 54, PO2 91, HC03 31. REVIEW OF IMAGES: Chest x-ray IMPRESSION: The tip of enteric tube is at the fundus and needs to be advanced at least by 10 cm. The lungs are clear. Abdominal ultrasound IMPRESSION: Limited evaluation due to overlying bowel gas and patient immobility. Within this limitation: 1. Chronic liver disease. 2. Status post TIPS. Flow visualized within the TIPS, however due to examination limitations direction of flow and flow velocities were not obtained. Head CT IMPRESSION: Motion artifact limits evaluation. Within this limitation, no acute intracranial pathology. EKG REVIEW: Sinus rhythm 92 beats per minute. No ST elevations, no depressions. ASSESSMENT AND PLAN: 1. Hepatic encephalopathy 2. Heroin abuse s/p OD 3. Acute on chronic hyponatremia 4. Chronic coagulopathy due to liver disease with INR 1.8 Transferred to ICU, lactulose every 2 hours with goal of 4 bowel movements per day, repeat ammonia levels later, repeat chemistries, we appreciate the input by Dr. Coppola who is helping us manage her hypo natremia. For now will continue with previous recommendations and fluid restriction. Recheck labs in the morning. Will place a central line. GI PROPHYLAXIS: IV ppi DVT PROPHYLAXIS: Pneumatic stockings Critical care time used for critical evaluation of this patient, diagnosis, treatment and coordination of care, review her records and documentation TOTAL CRITICAL CARE TIME 90 MIN . Patient's care was discussed in detail with Dr. Blackman. He is aware of all the above as well as the plan of care for this patient. <MARYLU Menendez - Last Filed: 03/31/20 19:14> [facility] Past Medical History Medical History: Medical History Anemia Anemia Anxiety Chronic back pain Chronic hyponatremia Cirrhosis Coagulopathy Congestive heart failure COPD (chronic obstructive pulmonary disease) COPD (chronic obstructive pulmonary disease) Depression Diabetes 1.5, managed as type 2 Hyponatremia Hyponatremia Liver disease Pneumonia PTSD (post-traumatic stress disorder) Thrombocytopenia <MARYLU Menendez - Last Filed: 03/31/20 19:14> Family History Family History: Family History Other HTN (hypertension) <MARYLU Menendez - Last Filed: 03/31/20 19:14> Surgical History Surgical History: Surgical History History of cholecystectomy Previous back surgery S/P TIPS (transjugular intrahepatic portosystemic shunt) <MARYLU Menendez - Last Filed: 03/31/20 19:14> Social History Social History: Social History (Updated 03/31/20 @ 20:37 by Valerie Dove RN) Household Members: Unknown / Unable to assess Housing: Unknown / Unable to assess Alcohol intake: unknown Smoking Status: Current every day smoker Tobacco Type: Cigarette Packs Per Day: 0.5 Cigarettes Per Day: 10.0 Years Smoked: 40 Second Hand Smoke Exposure: No Use of substances other than those prescribed or required for medical reasons: Yes Substance Use Type: Heroin Substance Use Frequency: Recent Binge Last Used Substance: Just Prior to Admission Last Used Substance Other:: used prior to coming into hosp Currently Displaying Signs/Symptoms of Drug Intoxication Withdrawal: Yes Spiritual Healthcare Practices: unable to respond Anabaptism Healthcare Practices: unable to respond Cultural Healthcare Practices: unable to respond Advance Directives: No Advance Directives Information Provided: Yes Do you have thoughts of harming others: None Do you have a plan to hurt others: No Plan Recently lost weight without trying: Unsure service: No Current occupational status: unemployed <MARYLU Menendez - Last Filed: 03/31/20 19:14> Meds Allergies/Adverse reactions: Allergies Allergy/AdvReac Type Severity Reaction Status Date / Time lamotrigine [From LAMICTAL] Allergy Intermediate RASH Verified 02/26/20 04:34 amoxicillin [AMOXICILLIN] Allergy Unknown NAUSEA & Verified 02/26/20 04:34 VOMITING Iodinated Contrast Media Allergy Unknown ANAPHYLAXIS Verified 02/26/20 04:34 [CONTRAST, IV] Sulfa (Sulfonamide Allergy Unknown UNKNOWN Verified 02/26/20 04:34 Antibiotics) [SULFA (SULFONAMIDE ANTIBIOTICS)] sulfamethoxazole Allergy Unknown UNK Verified 02/26/20 04:34 [From BACTRIM] trimethoprim [From BACTRIM] Allergy Unknown UNK Verified 02/26/20 04:34 <MARYLU Menendez - Last Filed: 03/31/20 19:14> Home medications: Home Medications Medication Instructions Recorded Confirmed Type Xifaxan 550 mg PO BID 01/20/20 03/31/20 History folic acid 1 mg PO DAILY 01/20/20 03/31/20 History omeprazole 20 mg PO BID 01/20/20 03/31/20 History potassium chloride 40 meq PO DAILY 01/20/20 03/31/20 History risperidone 2 mg PO BEDTIME 01/20/20 03/31/20 History Flovent HFA 2 puff INHALATION BID 02/09/20 03/31/20 History albuterol sulfate 2 puff INHALATION Q4H PRN 02/09/20 03/31/20 History calcium carbonate [Antacid Ext Str 1 tab PO TID PRN 02/09/20 03/31/20 History (calcium carb)] thiamine HCl (vitamin B1) 100 mg PO DAILY 02/09/20 03/31/20 History baclofen 10 mg PO QPM 02/13/20 03/31/20 History cetirizine 10 mg PO DAILY 02/19/20 03/31/20 History gabapentin 600 mg PO TID 02/19/20 03/31/20 History glycerin (adult) 1 supp [place] DAILY PRN 02/19/20 03/31/20 History metformin 750 mg PO BEDTIME 02/19/20 03/31/20 History pyridoxine (vitamin B6) 50 mg PO DAILY 02/19/20 03/31/20 History Stiolto Respimat 2 puff INHALATION DAILY 02/26/20 03/31/20 History <MARYLU Menendez - Last Filed: 03/31/20 19:14> Physical Exam Vital Signs: Vital Signs: Last Vital Signs Temp 97.2 F 03/30/20 17:36 Pulse 95 03/30/20 20:00 Resp 16 03/30/20 20:00 BP 126/64 03/30/20 20:00 Pulse Ox 100 03/30/20 20:00 Body Mass Index 38.3 <MARYLU Menendez - Last Filed: 03/31/20 19:14> Results Labs CBC and Chem 7: : 04/01/20 06:05 04/01/20 11:10 <MARYLU Menendez - Last Filed: 03/31/20 19:14> Labs: Laboratory Results - last 24 hr 03/29/20 03/29/20 03/29/20 20:08 20:08 20:08 MCV MCH MCHC RDW Plt Count MPV Immature Gran % (Auto) Neut % (Auto) Lymph % (Auto) [place] % (Auto) Eos % (Auto) Baso % (Auto) Lymph # (Auto) [place] # (Auto) Eos # (Auto) Baso # (Auto) Abs Immat Gran (auto) Absolute Neuts (auto) Absolute Nucleated RBC Nucleated RBC % (auto) Smear Tech's Comments ABG pH ABG pCO2 ABG pO2 ABG HCO3 ABG O2 Saturation ABG Base Excess Oxygen Given Anion Gap 14 Estim Creat Clear Calc 106.0 Estimated GFR > 60 POC Glucose Random Glucose 143 H Osmolality Lactic Acid 1.7 Calcium 8.0 L Ammonia 90 H 03/29/20 03/30/20 03/30/20 20:08 04:15 06:08 MCV 94.3 MCH 33.0 MCHC 34.9 RDW 18.4 H Plt Count 75 L MPV 11.2 Immature Gran % (Auto) 0.9 H Neut % (Auto) 78.9 H Lymph % (Auto) 7.4 L [place] % (Auto) 10.3 Eos % (Auto) 2.2 Baso % (Auto) 0.3 Lymph # (Auto) 1.1 L [place] # (Auto) 1.6 H Eos # (Auto) 0.3 Baso # (Auto) 0.1 Abs Immat Gran (auto) 0.13 H Absolute Neuts (auto) 11.9 H Absolute Nucleated RBC 0.000 Nucleated RBC % (auto) 0.0 Smear Tech's Comments VERIFIED ABG pH ABG pCO2 ABG pO2 ABG HCO3 ABG O2 Saturation ABG Base Excess Oxygen Given Anion Gap 13 Estim Creat Clear Calc 98.5 Estimated GFR > 60 POC Glucose Random Glucose 85 D Osmolality 257 L Lactic Acid Calcium 8.2 L Ammonia 03/30/20 03/30/20 03/30/20 09:03 10:07 10:07 MCV MCH MCHC RDW Plt Count MPV Immature Gran % (Auto) Neut % (Auto) Lymph % (Auto) [place] % (Auto) Eos % (Auto) Baso % (Auto) Lymph # (Auto) [place] # (Auto) Eos # (Auto) Baso # (Auto) Abs Immat Gran (auto) Absolute Neuts (auto) Absolute Nucleated RBC Nucleated RBC % (auto) Smear Tech's Comments ABG pH ABG pCO2 ABG pO2 ABG HCO3 ABG O2 Saturation ABG Base Excess Oxygen Given Anion Gap 13 Estim Creat Clear Calc 98.5 Estimated GFR > 60 POC Glucose 86 Random Glucose 97 Osmolality Lactic Acid Calcium 8.2 L Ammonia 85 H 03/30/20 03/30/20 03/30/20 11:57 13:03 16:12 MCV MCH MCHC RDW Plt Count MPV Immature Gran % (Auto) Neut % (Auto) Lymph % (Auto) [place] % (Auto) Eos % (Auto) Baso % (Auto) Lymph # (Auto) [place] # (Auto) Eos # (Auto) Baso # (Auto) Abs Immat Gran (auto) Absolute Neuts (auto) Absolute Nucleated RBC Nucleated RBC % (auto) Smear Tech's Comments ABG pH 7.36 ABG pCO2 54 H ABG pO2 91 ABG HCO3 31 H ABG O2 Saturation 96.0 ABG Base Excess 4.7 Oxygen Given 2 L Anion Gap 12 Estim Creat Clear Calc 69.3 Estimated GFR 57 POC Glucose 112 Random Glucose 130 H Osmolality Lactic Acid Calcium 8.2 L Ammonia 03/30/20 17:34 MCV MCH MCHC RDW Plt Count MPV Immature Gran % (Auto) Neut % (Auto) Lymph % (Auto) [place] % (Auto) Eos % (Auto) Baso % (Auto) Lymph # (Auto) [place] # (Auto) Eos # (Auto) Baso # (Auto) Abs Immat Gran (auto) Absolute Neuts (auto) Absolute Nucleated RBC Nucleated RBC % (auto) Smear Tech's Comments ABG pH ABG pCO2 ABG pO2 ABG HCO3 ABG O2 Saturation ABG Base Excess Oxygen Given Anion Gap Estim Creat Clear Calc Estimated GFR POC Glucose 127 H Random Glucose Osmolality Lactic Acid Calcium Ammonia <MARYLU Menendez - Last Filed: 03/31/20 19:14> Imaging Radiologist's Impressions: Impressions Chest X-Ray 03/30/20 00:00 IMPRESSION: The tip of enteric tube is at the fundus and needs to be advanced at least by 10 cm. The lungs are clear. <MARYLU Menendez - Last Filed: 03/31/20 19:14>
--- NOTE | 2020-03-30 23:22 | P.PCNCC_ITS ---
Procedures Central Line Placement A quick time-out was made for clarification and proper patient identification, patient was positioned, landmarks were identified, US used to locate a large compressible right femoral vein. The right groin was widely prepped and draped in a full sterile fashion. Ultrasound was used to locate again the right femora l, the vein was cannulated on the 1st pass with an 18 gauge thin needle, dark nonpulsatile blood return was obtained. The wire was threaded, a small incision was made at its base and dilator inserted. A triple-lumen central venous catheter was advanced into the vein up to the hub without problems, wired was removed. Ports had good blood return and flushed x3. The catheter was secured with 3 sutures at 3 sites, a Biopatch and dry sterile dressing were applied. Some bleeding was noted as the patient is coagulopathic, pressure and surgicel was placed. No complications noted.: Central Line Comments: Of note I had attempted placement of a CVL on the R and L IJ but I was not able to thread the catheter after the wire was inserted. This procedures were attempted once on each side and subsequently were abandoned to perform the above-mentioned right femoral central line. Consent for Procedure: Emergent-no informed consent obtained Time out performed: Yes Sterile Technique Used: Yes Patient placed on monitor/pulse ox: Yes prep: mask, gown and gloves Ultrasound used for placement: Yes Central line lumen inserted: single Post procedure: sutured in place, good blood return, all ports aspirated, flushed, capped and sterile dressing applied Post procedure x-ray: other Patient tolerated procedure: well Complications: none
[2020-03-30] MEDS: propofoL 1,000 MG/100 ML VIAL 22.85 MG IVCONT (23:47)
[2020-03-31] VITALS (42 sets, daily range): BP systolic 88–159; BP diastolic 36–86; PULSE 65–113; RESP 5–25; TEMP 35.1–37.7; O2SAT 87–100; BMI 36.5
[2020-03-31] MEDS: Albumin Human 25 % 100 ML IV ×2 (01:36→02:22)
[2020-03-31 05:30] LABS: Basophils Percent Auto 0.2 % (0-2); Eosinophils Absolute Auto 0.2 X10*3/uL (0.0-0.4); Eosinophils Percent Auto 2.1 % (0-4); Imm Gran Abs Auto 0.11 X10*3/uL (0.00-0.03); Imm Gran Pct Auto 0.9 % (0.0-0.4); Lymphocytes Absolute Auto 1.2 X10*3/uL (1.2-4.9); Lymphocytes Percent Auto 10.3 % (20-40); Mean Corpuscular HGB Conc 33.8 g/dl (31.0-35.0); Mean Corpuscular Hemoglobin 32.8 pg (27.0-33.0); Mean Platelet Volume 9.7 fL (9.4-12.3); Monocytes Absolute Auto 1.3 X10*3/uL (0.1-1.2); Monocytes Percent Auto 10.8 % (2-11); Neutrophils Absolute Auto 8.8 X10*3/uL (2.0-8.3); Neutrophils Percent Auto 75.7 % (45-73); Red Blood Count 2.01 X10*6/uL (4.20-5.50); Red Cell Distribution Width 18.9 % (11.0-16.0); White Blood Count 11.6 X10*3/uL (4.8-10.8)
[2020-03-31 05:35] LABS: Platelet Count 59 X10*3/uL (160-400)
[2020-03-31 05:37] LABS: HCO3 VBG 30 mmol/L; PCO2 VBG 45 mmHg; PO2 VBG 72 mmHg; pH VBG 7.43 (7.32-7.43)
[2020-03-31] MEDS: propofoL 1,000 MG/100 ML VIAL 14.28 MG IVCONT (05:55)
[2020-03-31 05:59] LABS: Hemoglobin 6.6 g/dl (12.0-16.0)
[2020-03-31 06:00] LABS: Hematocrit 19.5 % (37-47); Magnesium 2.1 mg/dL (1.6-2.6)
[2020-03-31 06:01] LABS: MANUAL DIFF FLAG NO
[2020-03-31] MEDS: Pantoprazole Sodium 40 MG/10 ML VIAL IVPUSH (06:13)
[2020-03-31 06:25] LABS: Anion Gap 11 (12-20); Blood Urea Nitrogen 10 mg/dL (9-16); Calcium 8.3 mg/dL (8.4-10.2); Carbon Dioxide 27 mmol/L (22-29); Chloride 91 mmol/L (96-108); Creatinine Clr Calc Pharmacy 66.7; Estimated Glomerular Filt Rate 57; Glucose Random 95 mg/dL (60-115); Phosphorus 2.5 mg/dL (2.7-4.5); Potassium 3.9 mmol/l (3.3-5.1); Sodium 125 mmol/L (135-145)
--- NOTE | 2020-03-31 07:10 | PC.NURSE ---
Addendum entered by David Chow RN 03/31/20 08:27: Malena Rachel, proxy, called and updated about patient status - intubated & needing blood. Proxy wants patient to have blood. Original Note: Patient admitted to ICU intubated from ER at 1999. Patient sedated w/ propofol - running through only line - 22g right hand. IV inspected - patent, no issues. Patient tolerating vent settings w/ sedation - 7.5 ETT at 21cm. AC 16, TV 500, peep 5, weaned FIO2 from 40 to 30 without issue. Lungs rhonchi at start, in-line suctioned for blood streaked mod amt sputum - then became scant through night.? NG tube in place from before intubation - hooked to low intermit suction for short time, then clamped. No significant?output noted. Patient moving extremities - propofol titrated for sedation. Saul VALERO attempted Right & Left IJ TLC w/ no success. Patient left w/ right neck more swollen than left - monitoring, no active?bleeding. Both IJ's dressed w/ occlusive dressings. Right fem triple lumen inserted - bleeding at insertion site. Surgicell placed on top of insertion site - no more bleeding noted. As soon as TLC in - propofol swapped from periph line to TLC. BP marginal, MAP low 60's, discussed w/ Saul VALERO - order to keep map >60.? Hypothermic 95.2, bear hugger put on patient at approx 4am. Temp came up >97. Between 4 & 5am, MAP continued to stay in high 50's, Saul VALERO made aware - order to start Levo. Kept at 0.03mcg/kg/min. Titrated propofol - patient arousable, moving extremities involuntarily. Good cough & gag, not following directions. Patient jaundice, Scleradema, Increased?edema noted - ansaraca, hips / lower legs.? Patient H&H critical this morning - reported to Saul VALERO - see documentation. T&S ordered and done - blood ordered. No active bleeding noted - Aspirated back on NG tube - no bloody output noted.?
[2020-03-31] MEDS: Albuterol/Iprat 2.5/0.5MG 3 ML AMPUL.NEB INHALE ×3 (07:28→20:36)
[2020-03-31] MEDS: Lactulose 20 GM/30 ML SOLUTION 30 GM PO ×4 (08:52→21:03)
--- NOTE | 2020-03-31 10:09 | XR_ITS ---
EXAMINATION: XR CHEST CLINICAL INFORMATION: NG tube placement COMPARISON: March 30, 2020 TECHNIQUE: AP portable view of the chest was obtained. FINDINGS: Large bore enteric tube is seen traversing through the stomach. Right subclavian central venous catheter seen with tip in the mid right atrium. No pneumothorax or significant pleural effusions identified. There are bilateral patchy regions of disease present most prominent in the lower lobes. Patient status post splenic artery embolization. Patient appears be status post TIPS with stent in place. Status post resection distal right clavicle. XR/XR chest 1V IMPRESSION: Enteric tube in position. Patchy regions of disease at the lung bases more prominent than on prior days study.
--- NOTE | 2020-03-31 11:03 | W.PM.CCHP ---
Procedures Central Line Placement Right SC: Central Line Comments: PROCEDURE: Insertion right subclavian central venous line. INDICATION: Acute respiratory failure. For IV access, blood draws, respiratory monitoring. ANESTHESIA: Local plus propofol infusion. PROCEDURE: Vascular ultrasound was used to examine the right side. A medium sized compressible medial SCL vein, along with the lateral SCL artery were identified and confirmed by color neal Doppler. The right subclavian area was widely prepped and draped in full sterile fashion. Local anesthesia was applied to the subclavian area. The right subclavian vein was again identified by sterile US, and cannulated directly on the 2nd pass of the 18 gauge thin wall. The wire was threaded without incident. A 7 [place] by 16 cm triple-lumen catheter was advanced into the vein up to the hub via the Seldinger technique without incident. There was good blood return x3. The catheter was sutured x3 and a Biopatch and dry sterile dressing were applied. Postop chest x-ray showed the line in good position with no pneumothorax. The patient tolerated the procedure well w no complications. Consent for Procedure: Elective - informed consent obtained
--- NOTE | 2020-03-31 11:03 | PM.CCPN ---
Subjective Subjective Date of Service: 03/31/20 Interval History: Mrs. Nicole was admitted to the ICU last night after being intubated in the ED for altered mental status/obtundation secondary to hepatic encephalopathy. The patient is a 55-year-old female w chronic alcoholism, alcoholic cirrhosis, ascites, COPD, chronic back pain, and recurrent hyponatremia. Smokes cigarettes daily. She?s been to the [facility] ED multiple times for hepatic encephalopathy and/or hyponatremia. Past surgical history: Cholecystectomy, esophageal varices, status post TIPS, back surgery. MEDICATIONS AT HOME include: Metformin, baclofen, gabapentin, lactulose, rifaximin, omeprazole, risperidone, spironolactone, torsemide, folate and thiamine. She presented to the ED on Mar 29 with confusion. In the ED, she was lethargic, and confused but arousable. She reported that she?d used heroin that day but came into the ED because she was not feeling well. She reported that she takes lactulose once a day and has about 1-2 bowel movements daily. She denied shortness of breath, nausea or vomiting, diarrhea, constipation, urinary symptoms, or lower extremity edema. She reported not drinking or using drugs in a long time but relapsed that day. On arrival to the ED vitals showed temp of 98.6?, heart rate of 78, respiratory rate of 12, blood pressure of 148/61, sat 98% on room air. Labs showed WBC count of 15, hemoglobin of 8.7 (around her baseline), plat count 66K (usually runs 70-90K), INR 1.8 (usually 1.6-1.9), sodium of 120 (was 137 on 02/27), BUN/creat 8/0.6, lactic acid of 2.3 which improved to 1.7 after fluids, total bili of 11.2 (was 3.6; highest was 14 in Jan, 2020), AST/ALT 68/20, ammonia 90 (highest was 185 on 02/25), albumin of 2.6 (usually 2.1-2.5), negative ethanol level. Chest x-ray negative for any pulmonary infection. Abdominal ultrasound in the ED showed a cirrhotic liver. A TIPS was noted with flow within it, but direction of flow and flow velocities were not able to be obtained. She was admitted to Medicine for treatment of hepatic encephalopathy and hyponatremia. She remained in the ED overnight. Yesterday morning, her sodium was 121 and ammonia level was 85. She was confused and unable to take the oral lactulose. Her behavior in the ED was bizarre, at time staring off into space, but then still interactive to vigorous prompting. There was a question whether she was having seizures, but she was never post-ictal. Could have been a conversion reaction. She was given Ativan without response. Ultimately she became too obtunded and required tracheal intubation. She was then transferred to the ICU. In the ICU she was sedated on propofol. She was continued on lactulose. A central venous line was placed for IV access. Unfortunately had to be placed in the groin because the catheter could not be threaded from either the right or left internal jugular approach. This morning, the patient is lightly sedated on propofol at 30 mcg. She is not on any opiates. See vital signs below. On AC 16/500/24%/+5, she was breathing at a rate of 16 with a sat in the low to mid 90s. Central venous blood gas this morning showed 7.34/59/+6. Heart rate running 90s, blood pressure about 106/50 on very low-dose Levophed. She has been normal thermic throughout her course except for late last night and early this morning when her temperature dip down to the 95+? range. The sclerae are grossly icteric. No JVD with the head of the bed at 30 degrees. Chest clear to auscultation, with normal expiratory phase. Heart rate and rhythm regular, with normal-sounding S1 and S2, with no murmur or gallops. The abdomen is obese. I am unable to discern a liver edge, possibly because the patient pushes back on palpation. There is no peripheral edema. LABORATORY DATA: As below. Notably, hemoglobin is down to 6.6 (negative NG aspirate), platelet count down to 59,000, sodium is 125, lactulose is 79. LFTs pending. IMPRESSION: 1. Chronic alcoholism (by report). Notably, ethanol undetected on this admission. 2. Polysubstance/opioid abuse. 3. Hepatic cirrhosis. Status post TIPS. 4. Hepatic encephalopathy. Continue lactulose qid. I replaced her [place] sump with a Kaofeed tube to allow her to better tolerate the NG tube so we can continue to get the lactulose into her. 5. Coagulopathy. Ordered vit K 50 mg total to see if she?s correctable. 6. Thrombocytopenia 7. Recurrent hyponatremia. Slow correction, target 8 mEq/day. We?ll start her on NS @ 50cc/hr. 8. Acute resp failure. We?ll pull her femoral line and then hopefully she?ll be extubatable. We?ve dropped her AC rate to 6 to get her spont breathing onto PSV. 9. Chronic back pain. Continue gabapentin. Critical care time (including extended rev of old chart; excluding procedures): 75+ min. Physical Exam Vital Signs: Vital Signs: Last Vital Signs Temp 97.9 F 03/31/20 10:53 Pulse 95 03/31/20 10:53 Resp 11 L 03/31/20 10:53 BP 113/45 L 03/31/20 10:53 Pulse Ox 94 03/31/20 10:53 Body Mass Index 36.5 Objective Data Labs CBC & Chem 7: 03/31/20 05:18 03/31/20 12:01 Labs: Laboratory Results - last 24 hr 03/30/20 03/30/20 03/30/20 10:07 11:57 13:03 WBC RBC Hgb Hct MCV MCH MCHC RDW Plt Count MPV Immature Gran % (Auto) Neut % (Auto) Lymph % (Auto) [place] % (Auto) Eos % (Auto) Baso % (Auto) Lymph # (Auto) [place] # (Auto) Eos # (Auto) Baso # (Auto) Abs Immat Gran (auto) Absolute Neuts (auto) Absolute Nucleated RBC Nucleated RBC % (auto) ABG pH 7.36 ABG pCO2 54 H ABG pO2 91 ABG HCO3 31 H ABG O2 Saturation 96.0 ABG Base Excess 4.7 VBG pH VBG pCO2 VBG pO2 VBG HCO3 VBG O2 Saturation VBG Base Excess Oxygen Given 2 L Sodium 121 L Potassium 5.1 Chloride 89 L Carbon Dioxide 24 Anion Gap 13 BUN 9 Creatinine 0.71 Estim Creat Clear Calc 98.5 Estimated GFR > 60 POC Glucose 112 Random Glucose 97 Calcium 8.2 L Phosphorus Magnesium Blood Type Antibody Screen Crossmatch 03/30/20 03/30/20 03/31/20 16:12 17:34 05:18 WBC 11.6 H RBC 2.01 L D Hgb 6.6 L* D Hct 19.5 L* D MCV 97.0 MCH 32.8 MCHC 33.8 RDW 18.9 H Plt Count 59 L MPV 9.7 Immature Gran % (Auto) 0.9 H Neut % (Auto) 75.7 H Lymph % (Auto) 10.3 L [place] % (Auto) 10.8 Eos % (Auto) 2.1 Baso % (Auto) 0.2 Lymph # (Auto) 1.2 [place] # (Auto) 1.3 H Eos # (Auto) 0.2 Baso # (Auto) 0.0 Abs Immat Gran (auto) 0.11 H Absolute Neuts (auto) 8.8 H Absolute Nucleated RBC 0.000 Nucleated RBC % (auto) 0.0 ABG pH ABG pCO2 ABG pO2 ABG HCO3 ABG O2 Saturation ABG Base Excess VBG pH VBG pCO2 VBG pO2 VBG HCO3 VBG O2 Saturation VBG Base Excess Oxygen Given Sodium 123 L Potassium 5.0 Chloride 90 L Carbon Dioxide 26 Anion Gap 12 BUN 11 Creatinine 1.01 Estim Creat Clear Calc 69.3 Estimated GFR 57 POC Glucose 127 H Random Glucose 130 H Calcium 8.2 L Phosphorus Magnesium Blood Type Antibody Screen Crossmatch 03/31/20 03/31/20 03/31/20 05:18 05:18 05:18 WBC RBC Hgb Hct MCV MCH MCHC RDW Plt Count MPV Immature Gran % (Auto) Neut % (Auto) Lymph % (Auto) [place] % (Auto) Eos % (Auto) Baso % (Auto) Lymph # (Auto) [place] # (Auto) Eos # (Auto) Baso # (Auto) Abs Immat Gran (auto) Absolute Neuts (auto) Absolute Nucleated RBC Nucleated RBC % (auto) ABG pH ABG pCO2 ABG pO2 ABG HCO3 ABG O2 Saturation ABG Base Excess VBG pH 7.43 VBG pCO2 45 VBG pO2 72 VBG HCO3 30 VBG O2 Saturation 96.0 VBG Base Excess 6.0 Oxygen Given Sodium Cancelled 125 L Potassium Cancelled 3.9 D Chloride Cancelled 91 L Carbon Dioxide Cancelled 27 Anion Gap Cancelled 11 L BUN Cancelled 10 Creatinine Cancelled 1.02 Estim Creat Clear Calc Cancelled 66.7 Estimated GFR Cancelled 57 POC Glucose Random Glucose Cancelled 95 Calcium Cancelled 8.3 L Phosphorus Cancelled 2.5 L Magnesium 2.1 Blood Type Antibody Screen Crossmatch 03/31/20 06:49 WBC RBC Hgb Hct MCV MCH MCHC RDW Plt Count MPV Immature Gran % (Auto) Neut % (Auto) Lymph % (Auto) [place] % (Auto) Eos % (Auto) Baso % (Auto) Lymph # (Auto) [place] # (Auto) Eos # (Auto) Baso # (Auto) Abs Immat Gran (auto) Absolute Neuts (auto) Absolute Nucleated RBC Nucleated RBC % (auto) ABG pH ABG pCO2 ABG pO2 ABG HCO3 ABG O2 Saturation ABG Base Excess VBG pH VBG pCO2 VBG pO2 VBG HCO3 VBG O2 Saturation VBG Base Excess Oxygen Given Sodium Potassium Chloride Carbon Dioxide Anion Gap BUN Creatinine Estim Creat Clear Calc Estimated GFR POC Glucose Random Glucose Calcium Phosphorus Magnesium Blood Type A Negative Antibody Screen NEGATIVE Crossmatch See Detail Microbiology Microbiology Results: Microbiology 03/29/20 14:18 Blood - Venous Blood Culture - Preliminary No growth after 24 hours. 03/29/20 14:19 Blood - Venous Blood Culture - Preliminary No growth after 24 hours. Progress Note: A&P Time Spent With Patient Time: Total time spent is greater than 50% in coordination of care (as documented) at patient's floor/unit and/or counseling patient: Total time spent with greater than 50% in coordination of care (as documented) at patient's floor/unit and/or counseling patient:: 0 Critical Care Time Critical Care Time (minutes): 90
[2020-03-31] MEDS: Potassium Chloride Packet 20 MEQ PACKET 40 MEQ G-TUBE (11:54)
[2020-03-31] MEDS: Chlorhexidine Gluc Oral Rinse 15 ML MOUTHWASH BUCCAL ×3 (11:54→21:04)
[2020-03-31] MEDS: Phenylephrine HCL 10 MG/ML VIAL IVPUSH (11:59)
[2020-03-31] MEDS: Phytonadione (Vit K1) 10 MG in 0.9 % Sodium Chloride 50 ML 51 MG IV ×2 (12:07→18:07)
[2020-03-31] MEDS: propofoL 1,000 MG/100 ML VIAL 11.42 MG IVCONT (12:16)
[2020-03-31 12:22] LABS: Base Excess VBG 6.1 mmol/L; HCO3 VBG 32 mmol/L; PCO2 VBG 59 mmHg; PO2 VBG 178 mmHg; pH VBG 7.34 (7.32-7.43)
[2020-03-31 12:32] LABS: Ammonia 79 umol/L (13-55)
[2020-03-31 12:37] LABS: Anion Gap 10 (12-20); Carbon Dioxide 28 mmol/L (22-29); Chloride 91 mmol/L (96-108); Potassium 4.4 mmol/l (3.3-5.1); Sodium 125 mmol/L (135-145)
[2020-03-31 12:53] LABS: Glucose, Whole Blood 122 mg/dL (60-115)
[2020-03-31] MEDS: Sodium,Potassium Phosphates POWD.PACK 2 PACKET G-TUBE (12:57)
[2020-03-31 13:33] LABS: Alanine Aminotransferase 20 U/L (0-31); Alkaline Phosphatase 151 U/L (39-117); Aspartate Amino Transferase 74 U/L (5-31); Bilirubin Direct 4.7 mg/dL (0.0-0.5); Bilirubin Total 8.5 mg/dL (0.0-1.0); Total Protein 5.6 g/dL (6.5-8.0)
--- NOTE | 2020-03-31 14:08 | PC.NURSE ---
Addendum entered by Mckenzie Garcia RN 03/31/20 14:27: temp this shift trending 97.7-98.2 bear hugger off Addendum entered by Mckenzie Garcia RN 03/31/20 14:23: pt received 1 unit rbc this shift, tolerated well, 2nd unit held and not to be given per MD Original Note: Pt sedate on propofol this am, easily arousable, restraints in place for patient safety/ continued on levophed KO tube feed placed to right nare by md, rachel and lidocaine given topically by MD for insertion, previous ng tube removed/ tlc placed to right subclavian by MD, pt tolerated both well with sedation/ tlc removed from right fem after giving vitamin k, pressure held for 10 min, occlusive dressing in place, no bleeding noted in site sedation titrated down to 20 of propofol, and vent settings adjusted by MD at rate of 8/ Pt with low volumes of 3-4 minute volumes on vent, RT and MD at bedside, vent settings adjusted again to bilevel high peep of 10 and low peep of 5 with rate of 6, fio2 30%, vbgs ordered and drawn/ sedation turned off this afternoon once tlc removed and ko placed, currently on these settings pt o2 sat trending 99%, minute volumes 5-6 and rr 8-9, MD aware/pt arousable to stimuli but not following any commands Health care proxy Malena updated this shift
--- NOTE | 2020-03-31 14:36 | P.PNNP_ITS ---
Subjective Subjective Date of Service: 03/31/20 Interval history: seen and examined. events noted sna grad incr 120 tonow 125 Physical Exam Vital Signs: Vital Signs: Last Vital Signs Temp 98.2 F 03/31/20 14:00 Pulse 95 03/31/20 14:00 Resp 12 03/31/20 14:00 BP 138/86 03/31/20 14:00 Pulse Ox 97 03/31/20 14:00 Body Mass Index 36.5 Const: General: cooperative and no acute distress Eyes: General: appearance normal, both eyes and all related structures Pupils: Equal, round and reactive pupils present Resp: Effort & Inspection: normal respiratory effort and able to speak in complete sentences Cardio: Rate: regular rate Rhythm: regular rhythm GI: Palpation (GI): Soft to palpation Auscultation: normal bowel sounds Skin: General skin exam: no rashes or lesions noted Neuro: Cranial nerves: Yes Equal, round and reactive pupils present Cognition (Neuro): normal cognition Extrem: General: Yes normal to inspection and Yes no pedal edema Objective Data Labs CBC & Chem 7: 03/31/20 05:18 03/31/20 12:01 Labs: Laboratory Results - last 24 hr 03/30/20 03/30/20 03/31/20 16:12 17:34 05:18 WBC 11.6 H RBC 2.01 L D Hgb 6.6 L* D Hct 19.5 L* D MCV 97.0 MCH 32.8 MCHC 33.8 RDW 18.9 H Plt Count 59 L MPV 9.7 Immature Gran % (Auto) 0.9 H Neut % (Auto) 75.7 H Lymph % (Auto) 10.3 L [place] % (Auto) 10.8 Eos % (Auto) 2.1 Baso % (Auto) 0.2 Lymph # (Auto) 1.2 [place] # (Auto) 1.3 H Eos # (Auto) 0.2 Baso # (Auto) 0.0 Abs Immat Gran (auto) 0.11 H Absolute Neuts (auto) 8.8 H Absolute Nucleated RBC 0.000 Nucleated RBC % (auto) 0.0 VBG pH VBG pCO2 VBG pO2 VBG HCO3 VBG O2 Saturation VBG Base Excess Sodium 123 L Potassium 5.0 Chloride 90 L Carbon Dioxide 26 Anion Gap 12 BUN 11 Creatinine 1.01 Estim Creat Clear Calc 69.3 Estimated GFR 57 POC Glucose 127 H Random Glucose 130 H Calcium 8.2 L Phosphorus Magnesium Total Bilirubin Direct Bilirubin AST ALT Alkaline Phosphatase Ammonia Total Protein Albumin Blood Type Antibody Screen Crossmatch 03/31/20 03/31/20 03/31/20 05:18 05:18 05:18 WBC RBC Hgb Hct MCV MCH MCHC RDW Plt Count MPV Immature Gran % (Auto) Neut % (Auto) Lymph % (Auto) [place] % (Auto) Eos % (Auto) Baso % (Auto) Lymph # (Auto) [place] # (Auto) Eos # (Auto) Baso # (Auto) Abs Immat Gran (auto) Absolute Neuts (auto) Absolute Nucleated RBC Nucleated RBC % (auto) VBG pH 7.43 VBG pCO2 45 VBG pO2 72 VBG HCO3 30 VBG O2 Saturation 96.0 VBG Base Excess 6.0 Sodium Cancelled 125 L Potassium Cancelled 3.9 D Chloride Cancelled 91 L Carbon Dioxide Cancelled 27 Anion Gap Cancelled 11 L BUN Cancelled 10 Creatinine Cancelled 1.02 Estim Creat Clear Calc Cancelled 66.7 Estimated GFR Cancelled 57 POC Glucose Random Glucose Cancelled 95 Calcium Cancelled 8.3 L Phosphorus Cancelled 2.5 L Magnesium 2.1 Total Bilirubin Direct Bilirubin AST ALT Alkaline Phosphatase Ammonia Total Protein Albumin Blood Type Antibody Screen Crossmatch 03/31/20 03/31/20 03/31/20 06:49 12:01 12:05 WBC RBC Hgb Hct MCV MCH MCHC RDW Plt Count MPV Immature Gran % (Auto) Neut % (Auto) Lymph % (Auto) [place] % (Auto) Eos % (Auto) Baso % (Auto) Lymph # (Auto) [place] # (Auto) Eos # (Auto) Baso # (Auto) Abs Immat Gran (auto) Absolute Neuts (auto) Absolute Nucleated RBC Nucleated RBC % (auto) VBG pH VBG pCO2 VBG pO2 VBG HCO3 VBG O2 Saturation VBG Base Excess Sodium 125 L Potassium 4.4 Chloride 91 L Carbon Dioxide 28 Anion Gap 10 L BUN Creatinine Estim Creat Clear Calc Estimated GFR POC Glucose Random Glucose Calcium Phosphorus Magnesium Total Bilirubin 8.5 H Direct Bilirubin 4.7 H AST 74 H ALT 20 Alkaline Phosphatase 151 H D Ammonia 79 H Total Protein 5.6 L Albumin 3.0 L Blood Type A Negative Antibody Screen NEGATIVE Crossmatch See Detail 03/31/20 03/31/20 12:05 12:50 WBC RBC Hgb Hct MCV MCH MCHC RDW Plt Count MPV Immature Gran % (Auto) Neut % (Auto) Lymph % (Auto) [place] % (Auto) Eos % (Auto) Baso % (Auto) Lymph # (Auto) [place] # (Auto) Eos # (Auto) Baso # (Auto) Abs Immat Gran (auto) Absolute Neuts (auto) Absolute Nucleated RBC Nucleated RBC % (auto) VBG pH 7.34 VBG pCO2 59 VBG pO2 178 VBG HCO3 32 VBG O2 Saturation 100.0 VBG Base Excess 6.1 Sodium Potassium Chloride Carbon Dioxide Anion Gap BUN Creatinine Estim Creat Clear Calc Estimated GFR POC Glucose 122 H Random Glucose Calcium Phosphorus Magnesium Total Bilirubin Direct Bilirubin AST ALT Alkaline Phosphatase Ammonia Total Protein Albumin Blood Type Antibody Screen Crossmatch Microbiology Microbiology Results: Microbiology 03/29/20 14:18 Blood - Venous Blood Culture - Preliminary No growth after 24 hours. 03/29/20 14:19 Blood - Venous Blood Culture - Preliminary No growth after 24 hours. Assessment & Plan Assessment and plan (1) Acute hepatic encephalopathy: Status: Acute (2) Acute liver failure: Status: Acute (3) Acute hyponatremia: Status: Acute (4) Heroin abuse: Status: Acute Assessment and Plan: Hypervol HypoNa in cirrotic patrientt: c/w non-osmotic incr ADH and interestingly her Uosm 196 is not as high as would have been expected Goal is to incr SNa gradually 4-6 meq/24 hrs to avoid risk of CPM. Lactulose once it kicks in and cause diarrhea will help incr SNa. May need IV NS and/or NaCl tabs as we track SNa; cont PO fluid restiction; avoid using 3 % saline if possible will need freq SNa checks and now she has central line will facilitate lab draws Will follow with team Time Spent With Patient Time: Total time spent is greater than 50% in coordination of care (as documented) at patient's floor/unit and/or counseling patient:
--- NOTE | 2020-03-31 15:49 | MHC.CM.PN ---
No bed rounds today. Note from medical record. Pt remains intubated and vented with mild sedation. Hepatic encephalopathy, liver failure. Na remains low. Ammonia remains high. Probable STR at d/c. HCP Loida Nicole([phone]). Message left. No return call. Will monitor for d/c needs and reach out to HCP tomorrow.
[2020-03-31] MEDS: 0.9 % Sodium Chloride Flush 3 ML SYRINGE IVFLUSH (16:09)
[2020-03-31] MEDS: 0.9 % Sodium Chloride 1,000 ML 50 ML IVCONT (16:09)
[2020-03-31 18:09] LABS: Glucose, Whole Blood 95 mg/dL (60-115)
--- NOTE | 2020-03-31 19:17 | PC.NURSE ---
assumed care at 19:00. patient is alert, rousable to light pain. sedation has been off since 1335 today. positive cough and gag and pupils equal and reactive to light. patient does not follow commands, and does not respond to questions. patient is very jaundiced, with scleritic icterus. no BM. getting lactulose via boy-feed tube to right nare. patient is still intubated with 7.5 ETT, 21 cm kristy, bilevel settings with high peep 10, low peep 5, fio2 30%, set rate 6, and patient is bradypneic with rr 6 over last 4 hours, MD aware/RT made aware. patient has lung sounds coarse in the bases, notable greenish thick inline secretions. low urine outputs over last 4 hours, average 12.5 cc/hr over 4 hours.
[2020-03-31 21:08] LABS: PCO2 VBG 56 mmHg; pH VBG 7.33 (7.32-7.43)
[2020-03-31 21:09] LABS: Base Excess VBG 3.9 mmol/L; HCO3 VBG 89 mmol/L; PO2 VBG 68 mmHg
[2020-03-31 21:39] LABS: Anion Gap 13 (12-20); Carbon Dioxide 25 mmol/L (22-29); Chloride 93 mmol/L (96-108); Potassium 5.6 mmol/l (3.3-5.1); Sodium 125 mmol/L (135-145)
[2020-04-01] VITALS (31 sets, daily range): BP systolic 102–171; BP diastolic 47–105; PULSE 65–125; RESP 6–24; TEMP 35.7–38.1; O2SAT 90–99; BMI 37.5
--- NOTE | 2020-04-01 | XR_ITS ---
EXAMINATION: XR CHEST CLINICAL INFORMATION: Shortness of breath COMPARISON: 03/31/2020 TECHNIQUE: Frontal view of the chest was obtained. FINDINGS: There is mild cardiomegaly. A feeding tube has its tip somewhere below the level of the diaphragm. A right subclavian line has its tip at the SVC/RA junction. A micra cardiac pacer is present. A TIPS is present. Surgical clips present at the gallbladder fossa. Patchy bilateral pulmonary densities are slightly improved when compared to yesterday's study. XR/XR chest 1V IMPRESSION: Slight improvement in patchy airspace disease.
[2020-04-01 00:23] LABS: Glucose, Whole Blood 101 mg/dL (60-115)
[2020-04-01] MEDS: 0.9 % Sodium Chloride Flush 3 ML SYRINGE IVFLUSH ×3 (00:32→17:08)
[2020-04-01] MEDS: Phytonadione (Vit K1) 10 MG in 0.9 % Sodium Chloride 50 ML 51 MG IV ×3 (00:32→11:31)
[2020-04-01] MEDS: Lactulose 20 GM/30 ML SOLUTION 30 GM PO ×2 (00:34→05:41)
[2020-04-01] MEDS: Sodium Polystyrene Sulfon/Sorb 15 GM/60 ML ORAL.SUSP 30 GM PO (02:53)
[2020-04-01] MEDS: Pantoprazole Sodium 40 MG/10 ML VIAL IVPUSH (05:40)
--- NOTE | 2020-04-01 06:05 | PC.NURSE ---
UPON INITIAL ASSESSMENT- PT ONLY RESPONSIVE TO NOXIOUS STIMULI, OFF SEDATION, +C/G, OPENS EYES, NO TRACKING, NON-PURPOSEFUL MOVEMENT OF BLE. TMAX 100.6, PA MADE AWARE. LS COARSE/RHONCHOROUS THROUGHOUT. SUCTIONED FOR SMALL/MOD AMOUNT OF GREEN/[place] SPUTUM VIA INLINE, BLOODY ORAL SECRETIONS. SPUTUM CULTURE ORDERED AND SENT, PCXR DONE PER PA. ETT #7.5, 21 CM BARRETT. INITIALLY ON BI-LEVEL VENTILATION, TOLERATING WELL, SEE VENT ASSESSMENT. ETCO2 50-60s. NSR/ST ON TELE, HR 90-100s. BP WNL. UOP 15-20 ML. TRENDING UP THROUGHOUT SHIFT TO 50 ML/HR, CONCENTRATED URINE. STILL NO BM, LACTULOSE 30 QID INCREASED TO Q4H. PA AWARE OF 2100 LABS, 1X DOSE OF SPS 30 GM GIVEN. KAOFEED TUBE RE-SECURED AT 73 CM. +2 GENERALIZED ANASARCA NOTED. SKIN INTACT, BRUISING. REPOSITIONED Q2H. ON AIR LOSS BED. AT APPROX 0500, PT BECOMING MORE AROUSABLE, PULLING AT RESTRAINTS, HR 120s, FOLLOWING SIMPLE COMMANDS BUT NO EYE TRACKING. PA/RT NOTIFIED. SWITCHED TO PSV 8/5/24%, RR 5-10, Vt 600s, Ve 5, BECOMING MORE LETHARGIC. PER PA, PLAN TO TRY TO EXTUBATE THIS AM.
[2020-04-01 06:15] LABS: Eosinophils Absolute Auto 0.2 X10*3/uL (0.0-0.4); Lymphocytes Absolute Auto 1.1 X10*3/uL (1.2-4.9); MANUAL DIFF FLAG SCAN; Mean Corpuscular Volume 97.3 fL (80-98); SCAN SMEAR FLAG 1; White Blood Count 16.5 X10*3/uL (4.8-10.8)
[2020-04-01 06:19] LABS: HCO3 VBG 31 mmol/L; PCO2 VBG 56 mmHg; PO2 VBG 80 mmHg; pH VBG 7.35 (7.32-7.43)
[2020-04-01 06:39] LABS: Ammonia 68 umol/L (13-55)
[2020-04-01 06:47] LABS: Anion Gap 12 (12-20); Blood Urea Nitrogen 11 mg/dL (9-16); Calcium 8.2 mg/dL (8.4-10.2); Carbon Dioxide 26 mmol/L (22-29); Chloride 95 mmol/L (96-108); Creatinine Clr Calc Pharmacy 63.9; Estimated Glomerular Filt Rate 53; Glucose Random 119 mg/dL (60-115); Potassium 4.9 mmol/l (3.3-5.1); Sodium 128 mmol/L (135-145)
[2020-04-01 06:57] LABS: Imm Gran Abs Auto 0.15 X10*3/uL (0.00-0.03); Imm Gran Pct Auto 0.9 % (0.0-0.4); PLT CLUMP 1; Red Blood Count 2.64 X10*6/uL (4.20-5.50)
[2020-04-01 06:59] LABS: Basophils Absolute Auto 0.1 X10*3/uL (0.0-0.2); Basophils Percent Auto 0.3 % (0-2); Eosinophils Percent Auto 1.3 % (0-4); Hematocrit 25.7 % (37-47); Hemoglobin 8.5 g/dl (12.0-16.0); Lymphocytes Percent Auto 6.6 % (20-40); Mean Corpuscular HGB Conc 33.1 g/dl (31.0-35.0); Mean Corpuscular Hemoglobin 32.2 pg (27.0-33.0); Mean Platelet Volume 10.1 fL (9.4-12.3); Monocytes Absolute Auto 2.3 X10*3/uL (0.1-1.2); Monocytes Percent Auto 13.8 % (2-11); Neutrophils Absolute Auto 12.7 X10*3/uL (2.0-8.3); Neutrophils Percent Auto 77.1 % (45-73); Red Cell Distribution Width 19.4 % (11.0-16.0)
[2020-04-01 07:02] LABS: Platelet Count 82 X10*3/uL (160-400)
[2020-04-01] MEDS: Albuterol/Iprat 2.5/0.5MG 3 ML AMPUL.NEB INHALE ×2 (07:20→14:31)
[2020-04-01 07:25] LABS: SLIDE REVIEW VERIFIED
[2020-04-01] MEDS: Lactulose 20 GM/30 ML SOLUTION 30 GM G-TUBE ×3 (07:58→23:15)
[2020-04-01] MEDS: Chlorhexidine Gluc Oral Rinse 15 ML MOUTHWASH BUCCAL (08:11)
[2020-04-01] MEDS: propofoL 200 MG/20 ML VIAL 20 MG IVPUSH (08:20)
--- NOTE | 2020-04-01 09:40 | P.PNNP_ITS ---
Subjective Subjective Date of Service: 04/01/20 Interval history: seen and examined. events noted sna grad incr..now 128 Physical Exam Vital Signs: Vital Signs: Last Vital Signs Temp 100 F 04/01/20 09:00 Pulse 124 H 04/01/20 09:00 Resp 24 H 04/01/20 09:00 BP 171/77 H 04/01/20 09:00 Pulse Ox 91 L 04/01/20 09:00 Body Mass Index 37.5 Const: General: cooperative and no acute distress Eyes: General: appearance normal, both eyes and all related structures Pupils: Equal, round and reactive pupils present Resp: Effort & Inspection: normal respiratory effort and able to speak in complete sentences Cardio: Rate: regular rate Rhythm: regular rhythm GI: Palpation (GI): Soft to palpation Auscultation: normal bowel sounds Skin: General skin exam: no rashes or lesions noted Neuro: Cranial nerves: Yes Equal, round and reactive pupils present Cognition (Neuro): normal cognition Extrem: General: Yes normal to inspection and Yes no pedal edema Objective Data Labs CBC & Chem 7: 04/01/20 06:05 04/01/20 06:05 Labs: Laboratory Results - last 24 hr 03/31/20 03/31/20 03/31/20 06:49 12:01 12:05 WBC RBC Hgb Hct MCV MCH MCHC RDW Plt Count MPV Immature Gran % (Auto) Neut % (Auto) Lymph % (Auto) Sevier % (Auto) Eos % (Auto) Baso % (Auto) Lymph # (Auto) [place] # (Auto) Eos # (Auto) Baso # (Auto) Abs Immat Gran (auto) Absolute Neuts (auto) Absolute Nucleated RBC Nucleated RBC % (auto) Smear Tech's Comments VBG pH VBG pCO2 VBG pO2 VBG HCO3 VBG O2 Saturation VBG Base Excess Sodium 125 L Potassium 4.4 Chloride 91 L Carbon Dioxide 28 Anion Gap 10 L BUN Creatinine Estim Creat Clear Calc Estimated GFR POC Glucose Random Glucose Calcium Total Bilirubin 8.5 H Direct Bilirubin 4.7 H AST 74 H ALT 20 Alkaline Phosphatase 151 H D Ammonia 79 H Total Protein 5.6 L Albumin 3.0 L Blood Type A Negative Antibody Screen NEGATIVE Crossmatch See Detail 03/31/20 03/31/20 03/31/20 12:05 12:50 18:05 WBC RBC Hgb Hct MCV MCH MCHC RDW Plt Count MPV Immature Gran % (Auto) Neut % (Auto) Lymph % (Auto) Se[place] % (Auto) Eos % (Auto) Baso % (Auto) Lymph # (Auto) [place] # (Auto) Eos # (Auto) Baso # (Auto) Abs Immat Gran (auto) Absolute Neuts (auto) Absolute Nucleated RBC Nucleated RBC % (auto) Smear Tech's Comments VBG pH 7.34 VBG pCO2 59 VBG pO2 178 VBG HCO3 32 VBG O2 Saturation 100.0 VBG Base Excess 6.1 Sodium Potassium Chloride Carbon Dioxide Anion Gap BUN Creatinine Estim Creat Clear Calc Estimated GFR POC Glucose 122 H 95 Random Glucose Calcium Total Bilirubin Direct Bilirubin AST ALT Alkaline Phosphatase Ammonia Total Protein Albumin Blood Type Antibody Screen Crossmatch 03/31/20 03/31/20 04/01/20 20:59 20:59 00:20 WBC RBC Hgb Hct MCV MCH MCHC RDW Plt Count MPV Immature Gran % (Auto) Neut % (Auto) Lymph % (Auto) Se[place] % (Auto) Eos % (Auto) Baso % (Auto) Lymph # (Auto) [place] # (Auto) Eos # (Auto) Baso # (Auto) Abs Immat Gran (auto) Absolute Neuts (auto) Absolute Nucleated RBC Nucleated RBC % (auto) Smear Tech's Comments VBG pH 7.33 VBG pCO2 56 VBG pO2 68 VBG HCO3 89 VBG O2 Saturation 92.0 VBG Base Excess 3.9 Sodium 125 L Potassium 5.6 H D Chloride 93 L Carbon Dioxide 25 Anion Gap 13 BUN Creatinine Estim Creat Clear Calc Estimated GFR POC Glucose 101 Random Glucose Calcium Total Bilirubin Direct Bilirubin AST ALT Alkaline Phosphatase Ammonia Total Protein Albumin Blood Type Antibody Screen Crossmatch 04/01/20 04/01/20 04/01/20 06:05 06:05 06:05 WBC 16.5 H RBC 2.64 L D Hgb 8.5 L D Hct 25.7 L D MCV 97.3 MCH 32.2 MCHC 33.1 RDW 19.4 H Plt Count 82 L D MPV 10.1 Immature Gran % (Auto) 0.9 H Neut % (Auto) 77.1 H Lymph % (Auto) 6.6 L Sevier % (Auto) 13.8 H Eos % (Auto) 1.3 Baso % (Auto) 0.3 Lymph # (Auto) 1.1 L [place] # (Auto) 2.3 H Eos # (Auto) 0.2 Baso # (Auto) 0.1 Abs Immat Gran (auto) 0.15 H Absolute Neuts (auto) 12.7 H Absolute Nucleated RBC 0.000 Nucleated RBC % (auto) 0.0 Smear Tech's Comments VERIFIED VBG pH 7.35 VBG pCO2 56 VBG pO2 80 VBG HCO3 31 VBG O2 Saturation 96.0 VBG Base Excess 5.0 Sodium 128 L Potassium 4.9 Chloride 95 L Carbon Dioxide 26 Anion Gap 12 BUN 11 Creatinine 1.08 Estim Creat Clear Calc 63.9 Estimated GFR 53 POC Glucose Random Glucose 119 H Calcium 8.2 L Total Bilirubin Direct Bilirubin AST ALT Alkaline Phosphatase Ammonia Total Protein Albumin Blood Type Antibody Screen Crossmatch 04/01/20 06:05 WBC RBC Hgb Hct MCV MCH MCHC RDW Plt Count MPV Immature Gran % (Auto) Neut % (Auto) Lymph % (Auto) Sevier % (Auto) Eos % (Auto) Baso % (Auto) Lymph # (Auto) [place] # (Auto) Eos # (Auto) Baso # (Auto) Abs Immat Gran (auto) Absolute Neuts (auto) Absolute Nucleated RBC Nucleated RBC % (auto) Smear Tech's Comments VBG pH VBG pCO2 VBG pO2 VBG HCO3 VBG O2 Saturation VBG Base Excess Sodium Potassium Chloride Carbon Dioxide Anion Gap BUN Creatinine Estim Creat Clear Calc Estimated GFR POC Glucose Random Glucose Calcium Total Bilirubin Direct Bilirubin AST ALT Alkaline Phosphatase Ammonia 68 H Total Protein Albumin Blood Type Antibody Screen Crossmatch Microbiology Microbiology Results: Microbiology 03/29/20 14:18 Blood - Venous Blood Culture - Preliminary No growth after 48 hours. 03/29/20 14:19 Blood - Venous Blood Culture - Preliminary No growth after 48 hours. Assessment & Plan Assessment and plan (1) Acute hepatic encephalopathy: Status: Acute (2) Acute liver failure: Status: Acute (3) Acute hyponatremia: Status: Acute (4) Heroin abuse: Status: Acute Assessment and Plan: Hypervol HypoNa in cirrotic patrientt: c/w non-osmotic incr ADH and SNa has grad inc r from adm SNa 120 to 128 over the past 3 days and now that SNa is at 128 t he risk of CPM is far less given the excellent job in grad incr SNa over the past 3 days Goal is to incr SNa gradually 4-6 meq/24 hrs to avoid risk of CPM. Lactulose once it kicks in and cause diarrhea will help incr SNa. will need freq SNa checks and now she has central line will facilitate lab draws Will follow with team Time Spent With Patient Time: Total time spent is greater than 50% in coordination of care (as do cumented) at patient's floor/unit and/or counseling patient:
--- NOTE | 2020-04-01 10:09 | MHC.CLN ---
F[facility] TO START TF RECOMMEND GLUCERNA AT MAX GOAL RATE OF 45CC/HR TO PROVIDE 1080KCALS (1457KCALS WITH SEDATION; 23KCALS), 45G PROTEIN (.7G/KG), 921CC FREE WATER FROM FORMULA MONITOR TOLERANCE, RESIDUALS AND LYTES FOLLOWING
[2020-04-01] MEDS: Furosemide 20 MG/2 ML VIAL IVPUSH ×2 (10:23→11:30)
[2020-04-01] MEDS: Albuterol Sulfate (0.083%) 2.5 MG/3 ML VIAL.NEB INHALE (10:28)
--- NOTE | 2020-04-01 10:32 | PC.NURSE ---
PT WAKING UP; AGITATED ON VENTILATOR; HR IN 120-130S ST; DR JOHNSON CALLED AT ~0800- T.O. FOR 20 MG PROPOFOL GIVEN AT ~0820 WITH GOOD EFFECT; PT WAKING BACK UP AROUND 0900; DR JOHNSON AT BEDSIDE; ORDERS TO EXTUBATE; RT CALLED; PT EXTUBATED AT 0935 THIS AM TO 2L;RESTRAINTS REMOVED; UPPER AIRWAY STRIDOR NOTED, VERY PROLONGED EXPIRATORY PHASE; DR JOHNSON NOTIFIED- AT BEDSIDE; RACEMIC-EPI UPDFT ORDERED AND GIVEN; 8 MG DEXAMETHASONE IV GIVEN; ALBUTEROL UPDRFT GIVEN BY RT; KEOFEED PULLED SLIGHTLY BY PT- RE-ADVANCED BY DR JOHNSON AT 73 CM BY GUIDEWIRE; ST ON MONITOR 120S, PT NOT RE-DIRECTABLE; RONCHEROUS LUNG SOUNDS WITH STRIDOROUS UPPER RESPIRATORY SOUNDS; ICTERIC SCLERA NOTED; PT WITH GENERALIZED EDEMA;FAINT BS; KEOEED SECURED BY DR JOHNSON; DA SILVA IN PLACE 20MG LASIX GIVEN; F/C IN PLACE; TURNED SIDE TO SIDE- AIR MATTRESS DEVICE REMOVED; MOVED PT CLOSER TO NURSES STATION- [employer] [facility]ER[facility] IN PLACE TLC IN RIGHT SUBCLAVIAN D&I;
--- NOTE | 2020-04-01 11:20 | MHC.CM.PN ---
No rounds today. Spoke with RN. States off sedation, ammonia improving, temp 100.6, mental status improving slightly, although not following commands. May extubate today. CM disposition pending further evaluation. Will follow for d/c needs
[2020-04-01] MEDS: dexmedeTOMIDidine HCL/NS 400 MCG/100 ML INFUS..BTL 9.3 MCG IVCONT (11:25)
[2020-04-01 11:30] LABS: Base Excess VBG 2.2 mmol/L; HCO3 VBG 29 mmol/L; PCO2 VBG 58 mmHg; PO2 VBG 133 mmHg
[2020-04-01 11:52] LABS: Glucose, Whole Blood 137 mg/dL (60-115)
[2020-04-01 11:59] LABS: Anion Gap 12 (12-20); Carbon Dioxide 27 mmol/L (22-29); Chloride 97 mmol/L (96-108); Magnesium 2.1 mg/dL (1.6-2.6); Phosphorus 3.5 mg/dL (2.7-4.5); Potassium 4.1 mmol/l (3.3-5.1); Sodium 132 mmol/L (135-145)
--- NOTE | 2020-04-01 12:35 | P.PNCC_ITS ---
Subjective Subjective Date of Service: 04/01/20 Interval History: Mrs. Nicole was transferred to ICU Mar 30 after being intubated in the ED for altered mental status/obtundation secondary to hepatic encephalopathy. The patient is a 55-year-old female w chronic alcoholism, alcoholic cirrhosis, ascites, COPD, chronic back pain, and recurrent hyponatremia. Smokes cigarettes daily. She?s been to the [place] ED multiple times for hepatic encephalopathy and/or hyponatremia. Past surgical history: Cholecystectomy, esophageal varices, status post TIPS, back surgery. MEDICATIONS AT HOME include: Metformin, baclofen, gabapentin, lactulose, rifaximin, omeprazole, risperidone, spironolactone, torsemide, folate and thiamine. She presented to the ED on Mar 29 with confusion. In the ED, she was lethargic, and confused but arousable. She reported that she?d used heroin that day but came into the ED because she was not feeling well. She reported that she takes lactulose once a day and has about 1-2 bowel movements daily. She denied shortness of breath, nausea or vomiting, diarrhea, constipation, urinary symptoms, or lower extremity edema. She reported not drinking or using drugs in a long time but relapsed that day. On arrival to the ED vitals showed temp of 98.6?, heart rate of 78, respiratory rate of 12, blood pressure of 148/61, sat 98% on room air. Labs showed WBC count of 15, hemoglobin of 8.7 (around her baseline), plat count 66K (usually runs 70-90K), INR 1.8 (usually 1.6-1.9), sodium of 120 (was 137 on 02/27), BUN/creat 8/0.6, lactic acid of 2.3 which improved to 1.7 after fluids, total bili of 11.2 (was 3.6; highest was 14 in Jan, 2020), AST/ALT 68/20, ammonia 90 (highest was 185 on 02/25), albumin of 2.6 (usually 2.1-2.5), negative ethanol level. Chest x-ray negative for any pulmonary infection. Abdominal ultrasound in the ED showed a cirrhotic liver. A TIPS was noted with flow within it, but direction of flow and flow velocities were not able to be obtained. She was admitted to Medicine for treatment of hepatic encephalopathy and hypona tremia. She remained in the ED overnight that night. The following morning (03/30), her sodium was 121 and ammonia level was 85. She was confused and unable to take the oral lactulose. Her behavior in the ED was bizarre, at time staring off into space, but then still interactive to stimulation. There was a question whether she was having seizures, but she was never post-ictal. Could have been a conversion reaction. She was given Ativan without response. Ultimately she became too obtunded and required tracheal intubation. She was then transferred to the ICU. In the ICU she was sedated on propofol. She was continued on lactulose. A central venous line was placed for IV access. Yesterday we continued the lactulose and put a Kaofeed NG tube in so she would be able to get the lactulose after extubation. She was breathing spontaneously on low level BiLevel. The propofol was discontinued but she failed to wake up. Last night, she lightened enough to go on PSV. This morning, she was finally opening her eyes and moving around in bed, altho not appropriately interactive. She was breathing easy on the PSV. Central venous blood gas this morning showed 7.35/56/+5. She was extubated, breathing with good rate and tidal volumes, but developed post-extubation stridor. And she?s still highly delirious, pulling at all her tubes and lines. She pulled her NGT partly out, we were able to get it back in w the wire. She?s squirming all over the bed and trying to get OOB. We gave her a racemic epi tx and Decadron 8mg, and put her on HFNC to give her some pos pressure. A post-extubation central venous blood gas recheck showed a pCO2 of 58. Auscultation at her neck showed clearer were breath sounds after the racemic epi, although still not perfect. She was satting 90% on room air. She was constantly pulling the high flow off. We put wrist restraints on, and then add ed Precedex. At 12:30, she is now calm on Precedex at 0.5 mcg. She is breathing easy with a fully clear inspiratory airway. She still has some minor expiratory wheeze. Respiratory rate looks like about 8, with sat of 96% on HFNC 60L/33% oxygen. See vital signs below. She is running low-grade temps about 100 degrees this morning. Is still very jaundiced. No jugular venous distention with head of bed at 30-40 degrees. Auscultation of the chest shows diffuse moderate rhonchi and wheezes. Abdomen is obese, but benign. Still can not feel a liver edge. She has at least 2+ central pitting edema. LABORATORY DATA: As below. Notably, sodium this morning was 128, and then repeat was 132 at 11:10. Ammonia levels morning was 68. LFTs are pending. (bilirubin was down to 8.5 yesterday) IMPRESSION: 1. Chronic alcoholism (by report). Notably, ethanol undetected on this admission. 2. Polysubstance/opioid abuse. 3. Hepatic cirrhosis. Status post TIPS. 4. Hepatic encephalopathy. Continue lactulose q4 hours until she stools. 5. Coagulopathy. Ordered vit K 50 mg total to see if she?s correctable. Recheck PT tomorrow morning. 6. Thrombocytopenia 7. Recurrent hyponatremia. Slow correction, target about 8 mEq/day. I discontinued her normal saline and gave her dose of 40 mg Lasix. Next lytes recheck at 18:00 tonight. 8. Acute resp failure. Resolved. Now with post extubation stridor. Definitely improved after receiving racemic epi and Decadron. I?ll give her one more dose of Decadron at 8 hours. Blood gas recheck at 13:00. 9. Delirium. Doing well on low dose Precedex for now. 10. Chronic back pain. Continue gabapentin. Critical care time (include mult visits and many minutes at the bedside bec of agitated delirium and repeat resp evaluations): 90+ min. Physical Exam Vital Signs: Vital Signs: Last Vital Signs Temp 99.7 F 04/01/20 11:50 Pulse 101 H 04/01/20 11:50 Resp 11 L 04/01/20 11:50 BP 167/71 H 04/01/20 11:50 Pulse Ox 95 04/01/20 11:50 Body Mass Index 37.5 Objective Data Labs CBC & Chem 7: 04/01/20 06:05 04/01/20 11:10 Labs: Laboratory Results - last 24 hr 03/31/20 03/31/20 03/31/20 06:49 12:01 12:50 WBC RBC Hgb Hct MCV MCH MCHC RDW Plt Count MPV Immature Gran % (Auto) Neut % (Auto) Lymph % (Auto) Perkins % (Auto) Eos % (Auto) Baso % (Auto) Lymph # (Auto) [place] # (Auto) Eos # (Auto) Baso # (Auto) Abs Immat Gran (auto) Absolute Neuts (auto) Absolute Nucleated RBC Nucleated RBC % (auto) Smear Tech's Comments VBG pH VBG pCO2 VBG pO2 VBG HCO3 VBG O2 Saturation VBG Base Excess Sodium 125 L Potassium 4.4 Chloride 91 L Carbon Dioxide 28 Anion Gap 10 L BUN Creatinine Estim Creat Clear Calc Estimated GFR POC Glucose 122 H Random Glucose Calcium Phosphorus Magnesium Total Bilirubin 8.5 H Direct Bilirubin 4.7 H AST 74 H ALT 20 Alkaline Phosphatase 151 H D Ammonia Total Protein 5.6 L Albumin 3.0 L Blood Type A Negative Antibody Screen NEGATIVE Crossmatch See Detail 03/31/20 03/31/20 03/31/20 18:05 20:59 20:59 WBC RBC Hgb Hct MCV MCH MCHC RDW Plt Count MPV Immature Gran % (Auto) Neut % (Auto) Lymph % (Auto) Perkins % (Auto) Eos % (Auto) Baso % (Auto) Lymph # (Auto) [place] # (Auto) Eos # (Auto) Baso # (Auto) Abs Immat Gran (auto) Absolute Neuts (auto) Absolute Nucleated RBC Nucleated RBC % (auto) Smear Tech's Comments VBG pH 7.33 VBG pCO2 56 VBG pO2 68 VBG HCO3 89 VBG O2 Saturation 92.0 VBG Base Excess 3.9 Sodium 125 L Potassium 5.6 H D Chloride 93 L Carbon Dioxide 25 Anion Gap 13 BUN Creatinine Estim Creat Clear Calc Estimated GFR POC Glucose 95 Random Glucose Calcium Phosphorus Magnesium Total Bilirubin Direct Bilirubin AST ALT Alkaline Phosphatase Ammonia Total Protein Albumin Blood Type Antibody Screen Crossmatch 04/01/20 04/01/20 04/01/20 00:20 06:05 06:05 WBC 16.5 H RBC 2.64 L D Hgb 8.5 L D Hct 25.7 L D MCV 97.3 MCH 32.2 MCHC 33.1 RDW 19.4 H Plt Count 82 L D MPV 10.1 Immature Gran % (Auto) 0.9 H Neut % (Auto) 77.1 H Lymph % (Auto) 6.6 L Perkins % (Auto) 13.8 H Eos % (Auto) 1.3 Baso % (Auto) 0.3 Lymph # (Auto) 1.1 L Perkins # (Auto) 2.3 H Eos # (Auto) 0.2 Baso # (Auto) 0.1 Abs Immat Gran (auto) 0.15 H Absolute Neuts (auto) 12.7 H Absolute Nucleated RBC 0.000 Nucleated RBC % (auto) 0.0 Smear Tech's Comments VERIFIED VBG pH VBG pCO2 VBG pO2 VBG HCO3 VBG O2 Saturation VBG Base Excess Sodium 128 L Potassium 4.9 Chloride 95 L Carbon Dioxide 26 Anion Gap 12 BUN 11 Creatinine 1.08 Estim Creat Clear Calc 63.9 Estimated GFR 53 POC Glucose 101 Random Glucose 119 H Calcium 8.2 L Phosphorus Magnesium Total Bilirubin Direct Bilirubin AST ALT Alkaline Phosphatase Ammonia Total Protein Albumin Blood Type Antibody Screen Crossmatch 04/01/20 04/01/20 04/01/20 06:05 06:05 11:07 WBC RBC Hgb Hct MCV MCH MCHC RDW Plt Count MPV Immature Gran % (Auto) Neut % (Auto) Lymph % (Auto) Perkins % (Auto) Eos % (Auto) Baso % (Auto) Lymph # (Auto) [place] # (Auto) Eos # (Auto) Baso # (Auto) Abs Immat Gran (auto) Absolute Neuts (auto) Absolute Nucleated RBC Nucleated RBC % (auto) Smear Tech's Comments VBG pH 7.35 7.30 L VBG pCO2 56 58 VBG pO2 80 133 VBG HCO3 31 29 VBG O2 Saturation 96.0 99.0 VBG Base Excess 5.0 2.2 Sodium Potassium Chloride Carbon Dioxide Anion Gap BUN Creatinine Estim Creat Clear Calc Estimated GFR POC Glucose Random Glucose Calcium Phosphorus Magnesium Total Bilirubin Direct Bilirubin AST ALT Alkaline Phosphatase Ammonia 68 H Total Protein Albumin Blood Type Antibody Screen Crossmatch 04/01/20 04/01/20 11:10 11:49 WBC RBC Hgb Hct MCV MCH MCHC RDW Plt Count MPV Immature Gran % (Auto) Neut % (Auto) Lymph % (Auto) Perkins % (Auto) Eos % (Auto) Baso % (Auto) Lymph # (Auto) Perkins # (Auto) Eos # (Auto) Baso # (Auto) Abs Immat Gran (auto) Absolute Neuts (auto) Absolute Nucleated RBC Nucleated RBC % (auto) Smear Tech's Comments VBG pH VBG pCO2 VBG pO2 VBG HCO3 VBG O2 Saturation VBG Base Excess Sodium 132 L Potassium 4.1 Chloride 97 Carbon Dioxide 27 Anion Gap 12 BUN Creatinine Estim Creat Clear Calc Estimated GFR POC Glucose 137 H Random Glucose Calcium Phosphorus 3.5 Magnesium 2.1 Total Bilirubin Direct Bilirubin AST ALT Alkaline Phosphatase Ammonia Total Protein Albumin Blood Type Antibody Screen Crossmatch Microbiology Microbiology Results: Microbiology 03/29/20 14:18 Blood - Venous Blood Culture - Preliminary No growth after 48 hours. 03/29/20 14:19 Blood - Venous Blood Culture - Preliminary No growth after 48 hours. Progress Note: A&P Time Spent With Patient Time: Total time spent is greater than 50% in coordination of care (as documented) at patient's floor/unit and/or counseling patient: Total time spent with greater than 50% in coordination of care (as documented) at patient's floor/unit and/or counseling patient:: 0 Critical Care Time Critical Care Time (minutes): 90
[2020-04-01 13:27] LABS: Alanine Aminotransferase 23 U/L (0-31); Alkaline Phosphatase 168 U/L (39-117); Aspartate Amino Transferase 79 U/L (5-31); Bilirubin Direct 6.6 mg/dL (0.0-0.5); Bilirubin Total 11.8 mg/dL (0.0-1.0)
[2020-04-01 13:52] LABS: PCO2 VBG 49 mmHg; pH VBG 7.35 (7.32-7.43)
[2020-04-01 13:53] LABS: Base Excess VBG 1.7 mmol/L; Basophils Percent Auto 0.3 % (0-2); Eosinophils Percent Auto 0.2 % (0-4); HCO3 VBG 27 mmol/L; Hematocrit 25.3 % (37-47); Hemoglobin 8.4 g/dl (12.0-16.0); Imm Gran Abs Auto 0.14 X10*3/uL (0.00-0.03); Imm Gran Pct Auto 0.9 % (0.0-0.4); Lymphocytes Absolute Auto 0.5 X10*3/uL (1.2-4.9); Lymphocytes Percent Auto 3.4 % (20-40); Mean Corpuscular HGB Conc 33.2 g/dl (31.0-35.0); Mean Corpuscular Hemoglobin 32.4 pg (27.0-33.0); Mean Corpuscular Volume 97.7 fL (80-98); Mean Platelet Volume 10.7 fL (9.4-12.3); Monocytes Absolute Auto 0.8 X10*3/uL (0.1-1.2); Monocytes Percent Auto 4.8 % (2-11); Neutrophils Absolute Auto 14.3 X10*3/uL (2.0-8.3); Neutrophils Percent Auto 90.4 % (45-73); PO2 VBG 78 mmHg; Red Blood Count 2.59 X10*6/uL (4.20-5.50); Red Cell Distribution Width 19.6 % (11.0-16.0); SCAN SMEAR FLAG 1; White Blood Count 15.8 X10*3/uL (4.8-10.8)
[2020-04-01 13:55] LABS: Platelet Count 67 X10*3/uL (160-400)
[2020-04-01 13:57] LABS: INTERNATIONAL NORM RATIO 2.3 (0.9-1.1)
[2020-04-01 14:23] LABS: MANUAL DIFF FLAG SCAN
[2020-04-01] MEDS: dexAMETHasone sod phosphate 4 MG/ML VIAL 8 MG IVPUSH (17:45)
[2020-04-01 18:03] LABS: Glucose, Whole Blood 148 mg/dL (60-115)
--- NOTE | 2020-04-01 20:17 | XR_ITS ---
EXAMINATION: XR CHEST CLINICAL INFORMATION: Feeding tube placement COMPARISON: 04/01/2020 at 12:30 AM TECHNIQUE: Frontal view of the chest was obtained at 8:17 PM. FINDINGS: Feeding tube descends the esophagus with tip in the body of the stomach. There is a right subclavian approach central venous catheter with tip in the right atrium. Micra pacemaker again seen. Diffuse interstitial opacities are again noted, slightly worsened in the left upper lobe. No definite pleural effusion or pneumothorax. XR/XR chest 1V IMPRESSION: Tip of the feeding tube is in the body of the stomach. Diffuse interstitial opacities are again noted, slightly worsened in the left upper lobe.
[2020-04-02] VITALS (30 sets, daily range): BP systolic 94–134; BP diastolic 41–72; PULSE 57–95; RESP 8–20; TEMP 35.8–36.4; O2SAT 89–100; BMI 37.9
[2020-04-02] MEDS: dexmedeTOMIDidine HCL/NS 400 MCG/100 ML INFUS..BTL 9.3 MCG IVCONT (00:05)
[2020-04-02] MEDS: Pantoprazole Sodium 40 MG/10 ML VIAL IVPUSH (04:53)
[2020-04-02] MEDS: Lactulose 20 GM/30 ML SOLUTION 30 GM G-TUBE ×6 (04:53→23:28)
[2020-04-02 05:26] LABS: Basophils Percent Auto 0.1 % (0-2); Hemoglobin 8.6 g/dl (12.0-16.0); Lymphocytes Percent Auto 5.6 % (20-40); MANUAL DIFF FLAG SCAN; Monocytes Percent Auto 4.4 % (2-11); PLT CLUMP 1; Red Cell Distribution Width 19.4 % (11.0-16.0); SCAN SMEAR FLAG 1
[2020-04-02 05:28] LABS: Imm Gran Abs Auto 0.16 X10*3/uL (0.00-0.03); Imm Gran Pct Auto 1.1 % (0.0-0.4); Lymphocytes Absolute Auto 0.8 X10*3/uL (1.2-4.9); Mean Corpuscular HGB Conc 33.1 g/dl (31.0-35.0); Mean Corpuscular Hemoglobin 32.1 pg (27.0-33.0); Monocytes Absolute Auto 0.6 X10*3/uL (0.1-1.2); Neutrophils Absolute Auto 12.5 X10*3/uL (2.0-8.3); Neutrophils Percent Auto 88.8 % (45-73); Red Blood Count 2.68 X10*6/uL (4.20-5.50)
--- NOTE | 2020-04-02 05:33 | PC.NURSE ---
AT APPROX 2000, PT EMERGING FROM PRECEDEX GTT, PULLED OUT KAOFEED TUBE- WITH TELESITTER IN PLACE. PT A&O TO PERSON, VAGUE TO PLACE. WHEN ATTEMPTED TO RE-INSERT TUBE BY PA, PT YELLING/REFUSING/THRASHING IN BED, DIFFICULT TO PLACE TUBE. AT THAT TIME, PT BECOMING MORE ALERT, ABLE TO SWALLOW SIPS OF WATER WITHOUT INCIDENT. AT APPROX 0000, SCHEDULED LACTULOSE DUE, PT BECOMING MORE OBTUNDED/UNAROUSABLE, UNABLE TO SAFELY TAKE PO MEDICATIONS. RESTRAINTS PLACED, KAOFEED TUBE SUCCESSFULLY INSERTED BY PA, CONFIRMED BY CXR. PT CONTINUES TO BE ONLY AROUSABLE BY NOXIOUS STIMULI, PREDCEDEX TITRATED OFF, PA MADE AWARE OF PT STATUS. AFEBRILE. NSR/SB ON TELE, HR 50-70s. SBP WNL. RR 8-12 THROUGHOUT SHIFT, SpO2 88-92% RA. LS COARSE/RHONCHOROUS AT TIMES. DA SILVA IN PLACE, UOP 30-50 ML/HR. INCT OF STOOL X2. SKIN INTACT, BRUISING TO R GROIN.SKIN INTACT, BRUISING TO R GROIN.
[2020-04-02 05:35] LABS: Ammonia 87 umol/L (13-55)
[2020-04-02 05:38] LABS: Platelet Count 71 X10*3/uL (160-400)
[2020-04-02 05:39] LABS: INTERNATIONAL NORM RATIO 2.2 (0.9-1.1); Prothrombin Time 26.2 SEC (10.8-13.0)
[2020-04-02 05:42] LABS: Anion Gap 15 (12-20); Blood Urea Nitrogen 13 mg/dL (9-16); Calcium 8.4 mg/dL (8.4-10.2); Carbon Dioxide 25 mmol/L (22-29); Chloride 97 mmol/L (96-108); Creatinine Clr Calc Pharmacy 65.8; Estimated Glomerular Filt Rate 55; Glucose Random 146 mg/dL (60-115); Potassium 3.5 mmol/l (3.3-5.1); Sodium 133 mmol/L (135-145)
--- NOTE | 2020-04-02 05:44 | PC.NURSE ---
AT APPROX 2000, PT EMERGING FROM PRECEDEX GTT, PULLED OUT KAOFEED TUBE- WITH TELESITTER IN PLACE. WHEN ATTEMPTED TO RE-INSERT TUBE BY PA, PT YELLING/REFUSING/THRASHING IN BED, DIFFICULT TO PLACE TUBE. AT THAT TIME, PT BECOMING MORE ALERT- PT A&O TO PERSON, VAGUE TO PLACE. ABLE TO SWALLOW SIPS OF WATER WITHOUT ISSUE. AT APPROX 0000, SCHEDULED LACTULOSE DUE, PT BECOMING MORE OBTUNDED/UNAROUSABLE. UNABLE TO SAFELY TAKE PO MEDICATION. RESTRAINTS PLACED, KAOFEED TUBE SUCCESSFULLY INSERTED BY PA, SECURED AT 85 CM. CONFIRMED BY CXR. PT CONTINUES TO BE ONLY AROUSABLE BY NOXIOUS STIMULI, PRECEDEX TITRATED OFF, PA AWARE OF PT STATUS. AFEBRILE. NSR/SB ON TELE, HR 50-70s. +2 GENERALIZED ANASARCA. SBP WNL. RR 8-12 THROUGHOUT SHIFT, SpO2 88-92% RA. LS COARSE/RHONCHOROUS AT TIMES. DA SILVA IN PLACE, UOP 30-50 ML/HR. INCT OF STOOL X2. SKIN INTACT, BRUISING TO R GROIN. ON AIR LOSS MATTRESS.
[2020-04-02 05:58] LABS: SLIDE REVIEW VERIFIED
--- NOTE | 2020-04-02 07:43 | PC.NURSE ---
Addendum entered by Mckenzie Garcia, EL[place] 04/02/20 07:51: MD aware of agitation, ativan 1 mg order received to allow pt to safely participate in care, pt reports ativan usually helps her Original Note: pt awake, sitting up, and yelling out for nurse, RN at bedside, pt took off restraints and reaching and attempting to pull out ko ng tube, 1:1 with no effect, pt continues to yell out and attempt to climb out of bed, precedex drip restarted, this rn remains with patient
[2020-04-02] MEDS: Albuterol/Iprat 2.5/0.5MG 3 ML AMPUL.NEB INHALE ×3 (07:47→19:40)
[2020-04-02] MEDS: 0.9 % Sodium Chloride Flush 3 ML SYRINGE IVFLUSH ×3 (08:14→23:28)
[2020-04-02] MEDS: LORazepam 2 MG/ML VIAL 1 MG IVPUSH (09:41)
[2020-04-02] MEDS: Furosemide 40 MG/4 ML VIAL IVPUSH (11:55)
[2020-04-02] MEDS: Folic Acid 1 MG TABLET PO (12:16)
[2020-04-02] MEDS: rifAXIMin 550 MG TABLET PO ×2 (12:16→20:53)
[2020-04-02] MEDS: Spironolactone 25 MG TABLET 50 MG PO (12:16)
[2020-04-02] MEDS: Thiamine HCL 100 MG TABLET PO (12:17)
--- NOTE | 2020-04-02 12:17 | PM.CCPN ---
Subjective Subjective Date of Service: 04/02/20 Interval History: Mrs. Nicole was transferred to ICU Mar 30 after being intubated in the ED for altered mental status/obtundation secondary to hepatic encephalopathy. The patient is a 55-year-old female w chronic alcoholism, alcoholic cirrhosis, ascites, COPD, chronic back pain, and recurrent hyponatremia. Smokes cigarettes daily. She?s been to the [facility] ED multiple times for hepatic encephalopathy and/or hyponatremia. Past surgical history: Cholecystectomy, esophageal varices, status post TIPS, back surgery. MEDICATIONS AT HOME include: Metformin, baclofen, gabapentin, lactulose, rifaximin, omeprazole, risperidone, spironolactone, torsemide, folate and thiamine. She presented to the ED on Mar 29 with confusion. In the ED, she was lethargic, and confused but arousable. She reported that she?d used heroin that day but came into the ED because she was not feeling well. She reported that she takes lactulose once a day and has about 1-2 bowel movements daily. She denied shortness of breath, nausea or vomiting, diarrhea, constipation, urinary symptoms, or lower extremity edema. She reported not drinking or using drugs in a long time but relapsed that day. On arrival to the ED vitals showed temp of 98.6?, heart rate of 78, respiratory rate of 12, blood pressure of 148/61, sat 98% on room air. Labs showed WBC count of 15, hemoglobin of 8.7 (around her baseline), plat count 66K (usually runs 70-90K), INR 1.8 (usually 1.6-1.9), sodium of 120 (was 137 on 02/27), BUN/creat 8/0.6, lactic acid of 2.3 which improved to 1.7 after fluids, total bili of 11.2 (was 3.6; highest was 14 in Jan, 2020), AST/ALT 68/20, ammonia 90 (highest was 185 on 02/25), albumin of 2.6 (usually 2.1-2.5), negative ethanol level. Chest x-ray negative for any pulmonary infection. Abdominal ultrasound in the ED showed a cirrhotic liver. A TIPS was noted with flow within it, but direction of flow and flow velocities were not able to be obtained. She was admitted to Medicine for treatment of hepatic encephalopathy and hyponatremia. She remained in the ED overnight that night. The following morning, her sodium was 121 and ammonia level was 85. She was confused and unable to take the oral lactulose. Her behavior in the ED was bizarre, at time staring off into space, but then still interactive to stimulation. There was a question whether she was having seizures, but she was never post-ictal. Could have been a conversion reaction. She was given Ativan without response. Ultimately she became too obtunded and required tracheal intubation. She was then transferred to the ICU. In the ICU she was sedated on propofol. She was continued on lactulose. A central venous line was placed for IV access. The next day, a Kaofeed NG tube was placed in order to continue the lactulose. The propofol was turned off and she had adequate spont breathing on the ventilator, but didn?t wake up till the next morning (yesterday morning), at which time she was extubated. She was breathing with a slow rate and high tidal volumes, but developed post-extubation stridor. And she was still highly delirious, pulling at all her tubes and lines. Her post extubation central venous pCO2 was OK. She was treated with racemic epi and Decadron, and her stridor slowly resolved. Her delirium was treated with Precedex with excellent results at very low dose. Her pCO2 remained OK. We turned the Precedex off in the afternoon and after a few hours, she woke up wild and pulled her NGT out. She had to be resedated with Precedex, and the KO feed tube was put back in. The Precedex was turned off last night and she did well all night long. This morning she woke up with a start and was wild again. We gave her Ativan 1mg and restarted the Precedex at very low dose and she calmed down. Currently, on Precedex 0.1ug, she?s sleeping calmly. Her airway is mostly altho not 100% clear. See Vital Signs below. She is afebrile with temperatures dipping down into the 96 degree range. RR is 10-12 w SpO2 93% on RA. Tracheal sounds are clear. She is grossly jaundiced. No JVD with the head of the bed at 30 degrees. Chest is clear to auscultation, with a normal expiratory phase. Heart tones are soft. No murmur or gallops. Abdomen is benign. I can discern no liver edge. She has at least 2+ central edema, minimal pretibial edema. LABORATORY DATA: As below. Notably, INR HAS NOT CORRECTED WITH 50 mg VITAMIN K. Sodium this morning is 133. Ammonia level this morning is up to 87. T bili was up to 11.8 yesterday. IMPRESSION: 1. Chronic alcoholism (by report). Notably, ethanol undetected on this admission. 2. Polysubstance/opioid abuse. 3. Hepatic cirrhosis. Status post TIPS. 4. Hepatic encephalopathy. Continue lactulose q4 hours. I?ve also added refaximin. 5. Coagulopathy. She is not correctable. 6. Thrombocytopenia 7. Recurrent hyponatremia. Slow correction. I restarted her torsemide, that should help keep her sodium within range. 8. Acute resp failure. Resolved. 9. Post extubation stridor. Resolved. 10. Delirium. I?ve restarted her Risperdal, gabapentin, and baclofen. We?ll see if those help. 11. Chronic back pain. Continue gabapentin. Critical care time: 50 min. Physical Exam Vital Signs: Vital Signs: Last Vital Signs Temp 96.6 F L 04/02/20 11:56 Pulse 66 04/02/20 11:56 Resp 12 04/02/20 11:56 BP 116/50 L 04/02/20 11:56 Pulse Ox 93 04/02/20 11:56 Body Mass Index 37.9 Objective Data Labs CBC & Chem 7: 04/02/20 04:50 04/02/20 04:50 Labs: Laboratory Results - last 24 hr 04/01/20 04/01/20 04/01/20 11:10 13:45 13:45 WBC 15.8 H RBC 2.59 L Hgb 8.4 L Hct 25.3 L MCV 97.7 MCH 32.4 MCHC 33.2 RDW 19.6 H Plt Count 67 L MPV 10.7 Immature Gran % (Auto) 0.9 H Neut % (Auto) 90.4 H Lymph % (Auto) 3.4 L [place] % (Auto) 4.8 Eos % (Auto) 0.2 Baso % (Auto) 0.3 Lymph # (Auto) 0.5 L [place] # (Auto) 0.8 Eos # (Auto) 0.0 Baso # (Auto) 0.0 Abs Immat Gran (auto) 0.14 H Absolute Neuts (auto) 14.3 H Absolute Nucleated RBC 0.000 Nucleated RBC % (auto) 0.0 Smear Tech's Comments PT INR VBG pH 7.35 VBG pCO2 49 VBG pO2 78 VBG HCO3 27 VBG O2 Saturation 94.0 VBG Base Excess 1.7 Sodium Potassium Chloride Carbon Dioxide Anion Gap BUN Creatinine Estim Creat Clear Calc Estimated GFR POC Glucose Random Glucose Calcium Total Bilirubin 11.8 H Direct Bilirubin 6.6 H AST 79 H ALT 23 Alkaline Phosphatase 168 H Ammonia Total Protein 6.0 L Albumin 3.0 L 04/01/20 04/01/20 04/02/20 13:45 17:59 04:50 WBC RBC Hgb Hct MCV MCH MCHC RDW Plt Count MPV Immature Gran % (Auto) Neut % (Auto) Lymph % (Auto) [place] % (Auto) Eos % (Auto) Baso % (Auto) Lymph # (Auto) [place] # (Auto) Eos # (Auto) Baso # (Auto) Abs Immat Gran (auto) Absolute Neuts (auto) Absolute Nucleated RBC Nucleated RBC % (auto) Smear Tech's Comments PT 28.0 H D 26.2 H INR 2.3 H 2.2 H VBG pH VBG pCO2 VBG pO2 VBG HCO3 VBG O2 Saturation VBG Base Excess Sodium Potassium Chloride Carbon Dioxide Anion Gap BUN Creatinine Estim Creat Clear Calc Estimated GFR POC Glucose 148 H Random Glucose Calcium Total Bilirubin Direct Bilirubin AST ALT Alkaline Phosphatase Ammonia Total Protein Albumin 04/02/20 04/02/20 04/02/20 04:50 04:50 04:50 WBC 14.0 H RBC 2.68 L Hgb 8.6 L Hct 26.0 L MCV 97.0 MCH 32.1 MCHC 33.1 RDW 19.4 H Plt Count 71 L MPV 11.0 Immature Gran % (Auto) 1.1 H Neut % (Auto) 88.8 H Lymph % (Auto) 5.6 L [place] % (Auto) 4.4 Eos % (Auto) 0.0 Baso % (Auto) 0.1 Lymph # (Auto) 0.8 L [place] # (Auto) 0.6 Eos # (Auto) 0.0 Baso # (Auto) 0.0 Abs Immat Gran (auto) 0.16 H Absolute Neuts (auto) 12.5 H Absolute Nucleated RBC 0.000 Nucleated RBC % (auto) 0.0 Smear Tech's Comments VERIFIED PT INR VBG pH VBG pCO2 VBG pO2 VBG HCO3 VBG O2 Saturation VBG Base Excess Sodium 133 L Potassium 3.5 Chloride 97 Carbon Dioxide 25 Anion Gap 15 BUN 13 Creatinine 1.05 Estim Creat Clear Calc 65.8 Estimated GFR 55 POC Glucose Random Glucose 146 H Calcium 8.4 Total Bilirubin Direct Bilirubin AST ALT Alkaline Phosphatase Ammonia 87 H Total Protein Albumin Microbiology Microbiology Results: Microbiology 03/29/20 14:18 Blood - Venous Blood Culture - Preliminary No growth after 48 hours. 03/29/20 14:19 Blood - Venous Blood Culture - Preliminary No growth after 48 hours. Progress Note: A&P Time Spent With Patient Time: Total time spent is greater than 50% in coordination of care (as documented) at patient's floor/unit and/or counseling patient: Total time spent with greater than 50% in coordination of care (as documented) at patient's floor/unit and/or counseling patient:: 0 Critical Care Time Critical Care Time (minutes): 60
[2020-04-02 13:13] LABS: Glucose, Whole Blood 165 mg/dL (60-115)
[2020-04-02] MEDS: Potassium Chloride Packet 20 MEQ PACKET 40 MEQ G-TUBE ×2 (13:24→17:08)
[2020-04-02] MEDS: risperiDONE Oral Sol 1 MG/ML SOLUTION NG-TUBE ×2 (13:24→20:53)
[2020-04-02] MEDS: Pyridoxine HCl (Vitamin B6) 50 MG TABLET PO (13:25)
--- NOTE | 2020-04-02 14:08 | PC.NURSE ---
Pt lethargic, semifowlers, resting comfortably, precedex turned off at 1200. Glucerna tube feeding began at 1200 20ml/hr. Lung ma clear except upper airway wheezing with rattling secretions, SaO2 93% on RA. Bradypnea RR 9-11. NSR 60s, did become bradycardic in the 40s briefly with repositioning while precedex was running. 40mg IVP Lasix given for 3-4+ pitting edema, anasarca, aldactone given through NG tube. Urine output 45-75ml/hr, picking up with diuretics. Ammonia still high and receiving lactulose, no BM this shift. will continue to monitor. Non-behavioral restraints in place. Bed locked and in lowest position, call orellana in reach. HCP updated.
[2020-04-02] MEDS: Gabapentin 600 MG TABLET PO ×2 (14:26→20:53)
[2020-04-02] MEDS: Torsemide 20 MG TABLET PO (17:08)
[2020-04-02] MEDS: dexmedeTOMIDidine HCL/NS 400 MCG/100 ML INFUS..BTL IVCONT (17:53)
[2020-04-02 18:02] LABS: Glucose, Whole Blood 166 mg/dL (60-115)
[2020-04-02] MEDS: Baclofen 10 MG TABLET PO (20:53)
[2020-04-03] VITALS (22 sets, daily range): BP systolic 95–145; BP diastolic 35–63; PULSE 54–115; RESP 9–20; TEMP 35.6–37; O2SAT 93–99; BMI 37.5
[2020-04-03] MEDS: Lactulose 20 GM/30 ML SOLUTION 30 GM G-TUBE ×3 (04:01→18:12)
[2020-04-03 05:22] LABS: MANUAL DIFF FLAG NO
[2020-04-03 05:25] LABS: Base Excess VBG 7.1 mmol/L; HCO3 VBG 32 mmol/L; PCO2 VBG 52 mmHg; PO2 VBG 97 mmHg
[2020-04-03 05:30] LABS: Basophils Percent Auto 0.1 % (0-2); Eosinophils Percent Auto 0.1 % (0-4); Hematocrit 27.6 % (37-47); Hemoglobin 9.2 g/dl (12.0-16.0); Imm Gran Abs Auto 0.27 X10*3/uL (0.00-0.03); Imm Gran Pct Auto 1.6 % (0.0-0.4); Lymphocytes Absolute Auto 0.7 X10*3/uL (1.2-4.9); Mean Corpuscular HGB Conc 33.3 g/dl (31.0-35.0); Mean Corpuscular Hemoglobin 33.1 pg (27.0-33.0); Mean Corpuscular Volume 99.3 fL (80-98); Mean Platelet Volume 10.4 fL (9.4-12.3); Neutrophils Absolute Auto 15.4 X10*3/uL (2.0-8.3); Neutrophils Percent Auto 88.2 % (45-73); Red Blood Count 2.78 X10*6/uL (4.20-5.50); Red Cell Distribution Width 20.9 % (11.0-16.0); White Blood Count 17.4 X10*3/uL (4.8-10.8)
[2020-04-03 05:41] LABS: Ammonia 71 umol/L (13-55)
[2020-04-03 05:44] LABS: Platelet Count 72 X10*3/uL (160-400)
[2020-04-03 05:45] LABS: Glucose, Whole Blood 165 mg/dL (60-115)
[2020-04-03 05:48] LABS: Alanine Aminotransferase 27 U/L (0-31); Albumin Level 2.8 g/dL (3.5-5.0); Alkaline Phosphatase 164 U/L (39-117); Anion Gap 13 (12-20); Aspartate Amino Transferase 72 U/L (5-31); Bilirubin Total 7.1 mg/dL (0.0-1.0); Blood Urea Nitrogen 19 mg/dL (9-16); Calcium 8.8 mg/dL (8.4-10.2); Carbon Dioxide 28 mmol/L (22-29); Chloride 101 mmol/L (96-108); Creatinine Clr Calc Pharmacy 46.9; Estimated Glomerular Filt Rate 37; Glucose Random 176 mg/dL (60-115); Magnesium 1.9 mg/dL (1.6-2.6); Phosphorus 2.5 mg/dL (2.7-4.5); Potassium 3.5 mmol/l (3.3-5.1); Sodium 138 mmol/L (135-145); Total Protein 5.9 g/dL (6.5-8.0)
--- NOTE | 2020-04-03 05:57 | PC.NURSE ---
CARE ASSUMED 23:15...LETHARGIC...BRIEFLY AROUSES TO NOXIOUS STIMULI/POSITIONING...MOANS OR BRIEFLY MUMBLES/YELLS INCOHERENTLY....DOES NOT FOLLOW ANY COMMANDS...SCLERA JAUNDICED..REMAINS WITH GENERALIZED EDEMA...RESPIRATIONS EASY....PRECIDEX DRIP WEANED FROM 0.4 TO 0.1 MCG/KG/HR D/T LETHARGY AND TRANSIENT EPISODE BRADYCARDIA HR 40'S..OVERALL NSR HR 60'S-70'S...CURRENT PRECIDEX= 0.1 MCG/KG/HR....BILATERAL WRIST RESTRAINTS MAINTAINED D/T PREVIOUSLY HAVING PULLED OUT MULTIPLE KAOFEED TUBES...RECEIVING LACTULOSE Q4H SCHEDULED ..INCONTINANT MULTIPLE LIQUIEDS VALENCIA BROWN STOOLS...RECTAL TUBE PLACED OVERNIGHT...GLUCERNA TITRATED TO GOAL 45 ML/HR
[2020-04-03] MEDS: Albuterol/Iprat 2.5/0.5MG 3 ML AMPUL.NEB INHALE ×3 (07:22→19:37)
[2020-04-03] MEDS: rifAXIMin 550 MG TABLET PO ×2 (07:45→22:11)
[2020-04-03] MEDS: 0.9 % Sodium Chloride Flush 3 ML SYRINGE IVFLUSH ×3 (07:45→23:32)
[2020-04-03] MEDS: Folic Acid 1 MG TABLET PO (07:45)
[2020-04-03] MEDS: Thiamine HCL 100 MG TABLET PO (07:46)
[2020-04-03] MEDS: Gabapentin 600 MG TABLET PO (07:46)
[2020-04-03] MEDS: Pyridoxine HCl (Vitamin B6) 50 MG TABLET PO (07:47)
[2020-04-03] MEDS: risperiDONE Oral Sol 1 MG/ML SOLUTION NG-TUBE (07:47)
[2020-04-03] MEDS: Potassium Chloride Packet 20 MEQ PACKET 40 MEQ G-TUBE (10:51)
--- NOTE | 2020-04-03 11:26 | PC.NURSE ---
0700 Pt sleeping, arouses with repositioning, gets agitated and attempts to pull at lines, confused oriented to self only. Continues non-behavioral restraints to bilat wrist. BUN/CR elevated 19/1.47, torsemide and aldactone held per Yehuda TOMLINSON. Ammonia level down to 71, MD reduced frequency of lactulose, 800ml liquid stool in rectal tube. Sodium phos and potassium ordered for PHOS 2.1 and K+ 3.5. Pt was bradycardic 50s this AM, mostly 70s NSR now. Generalized edema 2+, slight improvement from yesterday, SBP dipping into 90's, MAP is >65. On room air SaO2 95%, lung sounds clear, improved gurgling in upper airway, no longer wheezing, shallow breath and bradypnea 9-11. Kaofeed in right nare with glucerna running at 45ml/hr. Urine output 30-60ml/hr, orange. Bed locked and in lowest position. Bed alarm on.
--- NOTE | 2020-04-03 12:27 | P.PNCC_ITS ---
Subjective Subjective Date of Service: 04/03/20 Interval History: Mrs. Nicole was transferred to ICU Mar 30 after being intubated in the ED for altered mental status/obtundation secondary to hepatic encephalopathy. The patient is a 55-year-old female w chronic alcoholism, alcoholic cirrhosis, ascites, COPD, chronic back pain, and recurrent hyponatremia. Smokes cigarettes daily. She?s been to the [facility] ED multiple times for hepatic encephalopathy and/or hyponatremia. Past surgical history: Cholecystectomy, esophageal varices, status post TIPS, back surgery. MEDICATIONS AT HOME include: Metformin, baclofen, gabapentin, lactulose, rifaximin, omeprazole, risperidone, spironolactone, torsemide, folate and thiamine. She presented to the ED on Mar 29 with confusion. In the ED, she was lethargic, and confused but arousable. She reported that she?d used heroin that day but came into the ED because she was not feeling well. She reported that she takes lactulose once a day and has about 1-2 bowel movements daily. She denied shortness of breath, nausea or vomiting, diarrhea, constipation, urinary symptoms, or lower extremity edema. She reported not drinking or using drugs in a long time but relapsed that day. On arrival to the ED vitals showed temp of 98.6?, heart rate of 78, respiratory rate of 12, blood pressure of 148/61, sat 98% on room air. Labs showed WBC count of 15, hemoglobin of 8.7 (around her baseline), plat count 66K (usually runs 70-90K), INR 1.8 (usually 1.6-1.9), sodium of 120 (was 137 on 02/27), BUN/creat 8/0.6, lactic acid of 2.3 which improved to 1.7 after fluids, total bili of 11.2 (was 3.6; highest was 14 in Jan, 2020), AST/ALT 68/20, ammonia 90 (highest was 185 on 02/25), albumin of 2.6 (usually 2.1-2.5), negative ethanol level. Chest x-ray negative for any pulmonary infection. Abdominal ultrasound in the ED showed a cirrhotic liver. A TIPS was noted with flow within it, but direction of flow and flow velocities were not able to be obtained. She was admitted to Medicine for treatment of hepatic encephalopathy and hypona tremia. She remained in the ED overnight that night. The following morning, her sodium was 121 and ammonia level was 85. She was confused and unable to take the oral lactulose. Her behavior in the ED was bizarre, at time staring off into space, but then still interactive to stimulation. There was a question whether she was having seizures, but she was never post-ictal. Could have been a conversion reaction. She was given Ativan without response. Ultimately she became too obtunded and required tracheal intubation. She was then transferred to the ICU. In the ICU she was sedated on propofol. She was continued on lactulose. A central venous line was placed for IV access. The next day, a Kaofeed NG tube was placed in order to continue the lactulose. The propofol was turned off and she had adequate spont breathing on the ventilator, but didn?t wake up till the next morning (04/01), at which time she was extubated. She was breathing with a slow rate and high tidal volumes, but developed post-extubation stridor. And she was still highly delirious, pulling at all her tubes and lines. Her post extubation central venous pCO2 was OK. She was treated with racemic epi and Decadron, and her stridor slowly resolved. Her delirium was treated with Precedex with excellent results at very low dose. Since then, she?s been on and off low dose Precedex for agitation control. Yesterday, I started her back on her Risperdal, gabapentin, and baclofen, in addition to her torsemide and aldactone. He ammonia level yest was up to 87. She required Precedex overnite last night, but it?s been off since the transplant immunologist. This morning, she?s very lethargic. Arousable with stimulation but mostly just mumbles. Her airway is fully clear. See Vital Signs below. She is afebrile with temperatures dipping down into the 96? range. RR is 10-13 w SpO2 94-95% on RA. Tracheal sounds are clear. She is grossly jaundiced. No JVD with the head of the bed at 30 degrees. Chest is clear to auscultation, with a normal expiratory phase. Heart tones are soft. No murmur or gallops. Abdomen is benign. I can discern no liver edge. She has at least 2+ central edema, minimal pretibial edema. She?s now having diarrhea from the lactulose, and a rectal tube was placed. LABORATORY DATA: As below. Notably, WBC is up to 17. INR HAS NOT CORRECTED WITH 50 MG VITAMIN K. BUN/creat up to 19/1.4. Ammonia level this morning is down to 71. T bili is down to 7.1. IMPRESSION: 1. Chronic alcoholism (by report). Notably, ethanol undetected on this admission. 2. Polysubstance/opioid abuse. 3. Hepatic cirrhosis. Status post TIPS. 4. Hepatic encephalopathy. Continue lactulose q8 hours. I also restarted her refaximin yesterday. 5. Coagulopathy. She is not correctable. 6. Thrombocytopenia 7. Recurrent hyponatremia. Resolved. 8. Acute resp failure. Resolved. 9. Post extubation stridor. Resolved. 10. Delirium. I restarted her Risperdal, gabapentin, and baclofen yesterday, but this morning she?s oversedated. Could be the gabapentin and/or Risperdal. I?ll stop both of those. Baclofen is only 10mg qhs. 11. NELSY. Hold the torsemide and aldactone for now. 12. Chronic back pain. Hold gabapentin for now. 13. ID. Increasing leukocytosis. Not from her lungs. Check blood cultures and urine. No abx indicated at this time. No suggestion of sepsis. Critical care time: 60 min. Physical Exam Vital Signs: Vital Signs: Last Vital Signs Temp 96.8 F 04/03/20 12:00 Pulse 79 04/03/20 12:00 Resp 10 L 04/03/20 12:00 BP 99/47 L 04/03/20 12:00 Pulse Ox 94 04/03/20 12:00 Body Mass Index 37.5 Objective Data Labs CBC & Chem 7: 04/03/20 05:11 04/03/20 05:11 Labs: Laboratory Results - last 24 hr 04/02/20 04/02/20 04/03/20 13:09 17:58 01:36 WBC RBC Hgb Hct MCV MCH MCHC RDW Plt Count MPV Immature Gran % (Auto) Neut % (Auto) Lymph % (Auto) [place] % (Auto) Eos % (Auto) Baso % (Auto) Lymph # (Auto) [place] # (Auto) Eos # (Auto) Baso # (Auto) Abs Immat Gran (auto) Absolute Neuts (auto) Absolute Nucleated RBC Nucleated RBC % (auto) VBG pH VBG pCO2 VBG pO2 VBG HCO3 VBG O2 Saturation VBG Base Excess Sodium Potassium Chloride Carbon Dioxide Anion Gap BUN Creatinine Estim Creat Clear Calc Estimated GFR POC Glucose 165 H 166 H 165 H Random Glucose Calcium Phosphorus Magnesium Total Bilirubin AST ALT Alkaline Phosphatase Ammonia Total Protein Albumin 04/03/20 04/03/20 04/03/20 05:11 05:11 05:11 WBC 17.4 H RBC 2.78 L Hgb 9.2 L Hct 27.6 L MCV 99.3 H MCH 33.1 H MCHC 33.3 RDW 20.9 H Plt Count 72 L MPV 10.4 Immature Gran % (Auto) 1.6 H Neut % (Auto) 88.2 H Lymph % (Auto) 4.0 L [place] % (Auto) 6.0 Eos % (Auto) 0.1 Baso % (Auto) 0.1 Lymph # (Auto) 0.7 L [place] # (Auto) 1.0 Eos # (Auto) 0.0 Baso # (Auto) 0.0 Abs Immat Gran (auto) 0.27 H Absolute Neuts (auto) 15.4 H Absolute Nucleated RBC 0.000 Nucleated RBC % (auto) 0.0 VBG pH 7.40 VBG pCO2 52 VBG pO2 97 VBG HCO3 32 VBG O2 Saturation 98.0 VBG Base Excess 7.1 Sodium 138 Potassium 3.5 Chloride 101 Carbon Dioxide 28 Anion Gap 13 BUN 19 H Creatinine 1.47 H Estim Creat Clear Calc 46.9 Estimated GFR 37 POC Glucose Random Glucose 176 H Calcium 8.8 Phosphorus 2.5 L Magnesium 1.9 Total Bilirubin 7.1 H AST 72 H ALT 27 Alkaline Phosphatase 164 H Ammonia Total Protein 5.9 L Albumin 2.8 L 04/03/20 05:11 WBC RBC Hgb Hct MCV MCH MCHC RDW Plt Count MPV Immature Gran % (Auto) Neut % (Auto) Lymph % (Auto) [place] % (Auto) Eos % (Auto) Baso % (Auto) Lymph # (Auto) [place] # (Auto) Eos # (Auto) Baso # (Auto) Abs Immat Gran (auto) Absolute Neuts (auto) Absolute Nucleated RBC Nucleated RBC % (auto) VBG pH VBG pCO2 VBG pO2 VBG HCO3 VBG O2 Saturation VBG Base Excess Sodium Potassium Chloride Carbon Dioxide Anion Gap BUN Creatinine Estim Creat Clear Calc Estimated GFR POC Glucose Random Glucose Calcium Phosphorus Magnesium Total Bilirubin AST ALT Alkaline Phosphatase Ammonia 71 H Total Protein Albumin Microbiology Microbiology Results: Microbiology 03/29/20 14:18 Blood - Venous Blood Culture - Preliminary No growth after 48 hours. 03/29/20 14:19 Blood - Venous Blood Culture - Preliminary No growth after 48 hours. Progress Note: A&P Time Spent With Patient Time: Total time spent is greater than 50% in coordination of care (as documented) at patient's floor/unit and/or counseling patient: Total time spent with greater than 50% in coordination of care (as documented) at patient's floor/unit and/or counseling patient:: 0 Critical Care Time Critical Care Time (minutes): 60
[2020-04-03] MEDS: Sodium,Potassium Phosphates POWD.PACK 2 PACKET G-TUBE (13:46)
[2020-04-03 14:01] LABS: Glucose, Whole Blood 141 mg/dL (60-115)
[2020-04-03 14:17] LABS: Glucose Urine UA NEG (NEG); Leukocyte Esterase Urine TRACE (NEG); Nitrite Urine NEG (NEG); Urine Blood 1+ (NEG); Urine Ketones NEG (NEG); Urine Protein NEG (NEG-TRACE)
[2020-04-03 14:25] LABS: Appearance Urine HAZY; Color Urine YELLOW
[2020-04-03 14:42] LABS: Bacteria Urine 1+ /LPF; Squamous Epithelial Cell Urine TRACE /LPF
--- NOTE | 2020-04-03 20:51 | PM.PNNEP ---
Subjective Subjective Date of Service: 04/03/20 Interval history: Mrs. Nicole is unresponsive Cr is higher 1.47 . Physical Exam Vital Signs: Vital Signs: Last Vital Signs Temp 98.6 F 04/03/20 20:15 Pulse 109 H 04/03/20 20:15 Resp 14 04/03/20 20:15 BP 118/60 04/03/20 20:15 Pulse Ox 93 04/03/20 20:15 Body Mass Index 37.5 Const: General: other (Lethargic ) Eyes: General: appearance normal, both eyes and all related structures Pupils: Equal, round and reactive pupils present Resp: Effort & Inspection: normal respiratory effort and able to speak in complete sentences Cardio: Rate: regular rate Rhythm: regular rhythm GI: Palpation (GI): Soft to palpation Auscultation: normal bowel sounds Skin: General skin exam: no rashes or lesions noted Neuro: Cranial nerves: Yes Equal, round and reactive pupils present Cognition (Neuro): normal cognition Extrem: General: Yes normal to inspection and Yes no pedal edema Objective Data Labs CBC & Chem 7: 04/03/20 05:11 04/03/20 05:11 Labs: Laboratory Results - last 24 hr 04/03/20 04/03/20 04/03/20 01:36 05:11 05:11 WBC 17.4 H RBC 2.78 L Hgb 9.2 L Hct 27.6 L MCV 99.3 H MCH 33.1 H MCHC 33.3 RDW 20.9 H Plt Count 72 L MPV 10.4 Immature Gran % (Auto) 1.6 H Neut % (Auto) 88.2 H Lymph % (Auto) 4.[address] [place] % (Auto) 6.0 Eos % (Auto) 0.1 Baso % (Auto) 0.1 Lymph # (Auto) 0.[address] [place] # (Auto) 1.0 Eos # (Auto) 0.0 Baso # (Auto) 0.0 Abs Immat Gran (auto) 0.27 H Absolute Neuts (auto) 15.4 H Absolute Nucleated RBC 0.000 Nucleated RBC % (auto) 0.0 VBG pH VBG pCO2 VBG pO2 VBG HCO3 VBG O2 Saturation VBG Base Excess Sodium 138 Potassium 3.5 Chloride 101 Carbon Dioxide 28 Anion Gap 13 BUN 19 H Creatinine 1.47 H Estim Creat Clear Calc 46.9 Estimated GFR 37 POC Glucose 165 H Random Glucose 176 H Calcium 8.8 Phosphorus 2.5 L Magnesium 1.9 Total Bilirubin 7.1 H AST 72 H ALT 27 Alkaline Phosphatase 164 H Ammonia Total Protein 5.9 L Albumin 2.8 L Urine Color Urine Appearance Urine pH Ur Specific [place] Urine Protein Urine Glucose (UA) Urine Ketones Urine Blood Urine Nitrite Ur Leukocyte Esterase Urine RBC Urine WBC Ur Squamous Epith Cells Urine Bacteria Urine Yeast 04/03/20 04/03/20 04/03/20 05:11 05:11 13:45 WBC RBC Hgb Hct MCV MCH MCHC RDW Plt Count MPV Immature Gran % (Auto) Neut % (Auto) Lymph % (Auto) [place] % (Auto) Eos % (Auto) Baso % (Auto) Lymph # (Auto) [place] # (Auto) Eos # (Auto) Baso # (Auto) Abs Immat Gran (auto) Absolute Neuts (auto) Absolute Nucleated RBC Nucleated RBC % (auto) VBG pH 7.40 VBG pCO2 52 VBG pO2 97 VBG HCO3 32 VBG O2 Saturation 98.0 VBG Base Excess 7.1 Sodium Potassium Chloride Carbon Dioxide Anion Gap BUN Creatinine Estim Creat Clear Calc Estimated GFR POC Glucose 141 H Random Glucose Calcium Phosphorus Magnesium Total Bilirubin AST ALT Alkaline Phosphatase Ammonia 71 H Total Protein Albumin Urine Color Urine Appearance Urine pH Ur Specific [place] Urine Protein Urine Glucose (UA) Urine Ketones Urine Blood Urine Nitrite Ur Leukocyte Esterase Urine RBC Urine WBC Ur Squamous Epith Cells Urine Bacteria Urine Yeast 04/03/20 14:11 WBC RBC Hgb Hct MCV MCH MCHC RDW Plt Count MPV Immature Gran % (Auto) Neut % (Auto) Lymph % (Auto) [place] % (Auto) Eos % (Auto) Baso % (Auto) Lymph # (Auto) [place] # (Auto) Eos # (Auto) Baso # (Auto) Abs Immat Gran (auto) Absolute Neuts (auto) Absolute Nucleated RBC Nucleated RBC % (auto) VBG pH VBG pCO2 VBG pO2 VBG HCO3 VBG O2 Saturation VBG Base Excess Sodium Potassium Chloride Carbon Dioxide Anion Gap BUN Creatinine Estim Creat Clear Calc Estimated GFR POC Glucose Random Glucose Calcium Phosphorus Magnesium Total Bilirubin AST ALT Alkaline Phosphatase Ammonia Total Protein Albumin Urine Color YELLOW Urine Appearance HAZY Urine pH 6.0 Ur Specific [place] 1.010 Urine Protein NEG Urine Glucose (UA) NEG Urine Ketones NEG Urine Blood 1+ H Urine Nitrite NEG Ur Leukocyte Esterase TRACE H Urine RBC 1-4 Urine WBC 1-4 Ur Squamous Epith Cells TRACE Urine Bacteria 1+ Urine Yeast 2+ Microbiology Microbiology Results: Microbiology 03/29/20 14:18 Blood - Venous Blood Culture - Final No growth after 5 days. 03/29/20 14:19 Blood - Venous Blood Culture - Final No growth after 5 days. Assessment & Plan Assessment and plan (1) Acute hepatic encephalopathy: Status: Acute (2) Acute liver failure: Status: Acute (3) Acute hyponatremia: Status: Acute (4) Heroin abuse: Status: Acute Assessment and Plan: Hypervol HypoNa in cirrotic patrientt: c/w non-osmotic incr ADH and SNa has grad inc r from adm SNa 120 to 128 over the past 3 days and now NA is better Now NELSY - Multifactorial causes - Renal hypoperfusion Avoid Nephrotoxins IV albumin as needed Urine studies Na/ Cr ordered Will follow with team Time Spent With Patient Time: Total time spent is greater than 50% in coordination of care (as documented) at patient's floor/unit and/or counseling patient:
--- NOTE | 2020-04-03 21:31 | PC.NURSE ---
Addendum entered by David Chow RN 04/03/20 22:21: Patient tolerated all pills - still calling out, kicking/rolling back and forth. Addendum entered by David Chow RN 04/03/20 22:11: While being restrained, patient moved body down in bed and pulled out luis armando feed tube. Telesitter in place as well. Patient frequently repositioned and not easily redirected. Updated Malena SAMUEL about patient status. Saul VALERO made aware of tube coming out. Order to do nursing swallow eval - eval complete, patient passed, order to give meds PO at this time. Patient kicking and trying to pull out bess cath - kept patient restrained at this time. Addendum entered by David Chow RN 04/03/20 21:35: Saul VALERO deemed patient stable - order to change vital signs to Q4H. Original Note: Patient agitated, yelling out. Restless. Frequently needing redirection. Unable to release restraints r/t pulling at tubes - luis armando feed need to be kept in at this time for feeding and meds. Saul VALERO at bedside aware of patient agitation - ordered risperidol to add to HS meds to help w/ agitation. Otherwise tolerating tube feed - no issues w/ residuals. Vitals stable. afebrile.
[2020-04-03 21:57] LABS: Creatinine Urine 43.04 mg/dL; Total Protein Urine Random 13 mg/dL (<12)
[2020-04-03] MEDS: risperiDONE 1 MG TABLET PO (22:11)
[2020-04-03] MEDS: Chlorhexidine Gluc Oral Rinse 15 ML MOUTHWASH BUCCAL (22:11)
[2020-04-03] MEDS: Baclofen 10 MG TABLET PO (22:11)
[2020-04-04] VITALS (10 sets, daily range): BP systolic 116–146; BP diastolic 55–108; PULSE 78–102; RESP 11–24; TEMP 36.3–37.1; O2SAT 90–97; BMI 36.8
--- NOTE | 2020-04-04 | CT_ITS ---
EXAMINATION: CT CHEST, ABDOMEN AND PELVIS WITHOUT CONTRAST CLINICAL INFORMATION: Diffuse interstitial opacities on CT chest 04/01/2020 COMPARISON: None TECHNIQUE: 5 mm thin axial and reformatted 3 mm thin sagittal and coronal images of the chest, abdomen and pelvis were obtained without contrast. DLP 1311 mGy-cm. FINDINGS: CHEST: The lungs are expanded with diffuse extensive multilobar infiltrates involving all segments. The heart size and the great vessels are normal caliber. There is no pericardial effusion. No abnormal sized mediastinal lymph nodes seen. The central trachea and the bronchi are widely patent. The thyroid lobes are symmetrical and normal. No abnormal size mediastinal or hilar lymph nodes seen. There is right central venous catheter with its tip in the distal SVC. There is no pleural effusion or thickening. The axilla and the chest wall appear unremarkable. ABDOMEN AND PELVIS: The liver is heterogeneous, lobulated contour with portosystemic stent from a TIPS procedure. No obvious focal lesion seen. There is mild splenomegaly measuring 14.5 cm in craniocaudad length. It is homogeneous in density. The pancreas is atrophied. Bilateral adrenal glands are unremarkable. Both kidneys are normal size, shape and position. No radiopaque renal calculi or hydronephrosis seen. There is scattered stool and gas seen throughout the colon without any significant distention. The small bowel loops are normal caliber. There is diffuse edema along the flank in the anterior abdominal wall. There is no ascites. The abdominal aorta is atherosclerotic but nondilated. No retroperitoneal lymph nodes seen. Imaging through the pelvis reveals a Rodriguez catheter in the bladder. Bone windows reveal degenerative disc changes at the L2-L3, L4-L5 and L5-S1 disc levels. There is L4, L5 and S1 fusion with L4 and S1 pedicular screws and interconnecting rods. There is endplate sclerosis at the L2-L3 disc level. CT/CT abdomen pelvis wo con IMPRESSION: Extensive multilobar infiltrates. No pleural effusion seen. Cirrhosis with hepatomegaly. No ascites. There is diffuse abdominal wall edema along the flanks. There is a portosystemic/TIPS venous shunt in the liver.
[2020-04-04 01:01] LABS: Glucose, Whole Blood 146 mg/dL (60-115)
[2020-04-04] MEDS: Lactulose 20 GM/30 ML SOLUTION 30 GM G-TUBE ×3 (02:56→17:15)
[2020-04-04 05:45] LABS: MANUAL DIFF FLAG NO
[2020-04-04 05:46] LABS: Base Excess VBG 9.9 mmol/L; HCO3 VBG 34 mmol/L; PCO2 VBG 49 mmHg; PO2 VBG 74 mmHg; pH VBG 7.45 (7.32-7.43)
[2020-04-04 05:47] LABS: Basophils Percent Auto 0.1 % (0-2); Hematocrit 25.9 % (37-47); Hemoglobin 8.4 g/dl (12.0-16.0); Imm Gran Abs Auto 0.19 X10*3/uL (0.00-0.03); Imm Gran Pct Auto 1.5 % (0.0-0.4); Lymphocytes Absolute Auto 0.7 X10*3/uL (1.2-4.9); Lymphocytes Percent Auto 5.7 % (20-40); Mean Corpuscular HGB Conc 32.4 g/dl (31.0-35.0); Mean Corpuscular Hemoglobin 33.1 pg (27.0-33.0); Mean Platelet Volume 10.6 fL (9.4-12.3); Monocytes Absolute Auto 0.9 X10*3/uL (0.1-1.2); Monocytes Percent Auto 6.8 % (2-11); Neutrophils Absolute Auto 10.8 X10*3/uL (2.0-8.3); Neutrophils Percent Auto 85.9 % (45-73); Red Blood Count 2.54 X10*6/uL (4.20-5.50); White Blood Count 12.5 X10*3/uL (4.8-10.8)
[2020-04-04 05:48] LABS: Platelet Count 68 X10*3/uL (160-400)
--- NOTE | 2020-04-04 05:55 | PC.NURSE ---
CARE ASSUMED 23:15...AWAKE INTERMITTANTLY..DISORIENTED TO PLACE/TIME/EVENTS...RESTLESS AND AGITATED...ATTEMPTS TO PULL ON DA SILVA AND TLC WHEN WRIST RESTRAINTS RELEASED...RESTRAINTS MAINTAINED FOR LINE SAFETY PER ICU PA..UNABLE TO RE-DIRECT...YELLING INTERMITTANTLY...WHEN ASKED WHY PATIENT STATED I'M ON SPEAKER PHONE WITH HIM...THERE'S A BLUETOOTH DEVICE IN MY NOSE. ABLE TO SWALLOW H20/COLE-SAV/MEDS W/O DIFFICULTY. AM LABS DRAWN AND PENDING..CURRENTLY DOZING
[2020-04-04 06:13] LABS: Alanine Aminotransferase 32 U/L (0-31); Albumin Level 2.5 g/dL (3.5-5.0); Alkaline Phosphatase 139 U/L (39-117); Anion Gap 10 (12-20); Aspartate Amino Transferase 86 U/L (5-31); Bilirubin Total 5.4 mg/dL (0.0-1.0); Blood Urea Nitrogen 15 mg/dL (9-16); Calcium 8.9 mg/dL (8.4-10.2); Carbon Dioxide 32 mmol/L (22-29); Chloride 102 mmol/L (96-108); Creatinine Clr Calc Pharmacy 64.5; Estimated Glomerular Filt Rate 54; Glucose Random 129 mg/dL (60-115); Magnesium 1.6 mg/dL (1.6-2.6); Phosphorus 2.6 mg/dL (2.7-4.5); Potassium 3.8 mmol/l (3.3-5.1); Sodium 140 mmol/L (135-145); Total Protein 5.3 g/dL (6.5-8.0)
[2020-04-04] MEDS: Albuterol/Iprat 2.5/0.5MG 3 ML AMPUL.NEB INHALE ×3 (07:17→19:17)
[2020-04-04] MEDS: 0.9 % Sodium Chloride Flush 3 ML SYRINGE IVFLUSH ×2 (08:02→16:07)
--- NOTE | 2020-04-04 09:53 | MHC.CLN ---
F/U PT PULLED OUT CHANTELLE FEED TUBE 04/03/20 PER NSG TF CURRENTLY ON HOLD-WILL UPDATE DIET ORDER FOLLOWING
[2020-04-04 09:58] LABS: Ammonia 44 umol/L (13-55)
--- NOTE | 2020-04-04 10:40 | P.PNNP_ITS ---
Subjective Subjective Date of Service: 04/04/20 Interval history: Events noted More alert non oliguric . Physical Exam Vital Signs: Vital Signs: Last Vital Signs Temp 98.1 F 04/04/20 07:55 Pulse 78 04/04/20 07:55 Resp 11 L 04/04/20 07:55 BP 122/55 L 04/04/20 07:55 Pulse Ox 93 04/04/20 07:55 Body Mass Index 36.8 Const: General: ill appearing Orientation/consciousness: oriented to person Neck: Neck: Yes supple Resp: Auscultation: rhonchi Cardio: Heart sounds: no gallops and no rubs GI: Palpation (GI): Soft to palpation Auscultation: normal bowel sounds Neuro: General: oriented to person Motor exam (neuro): Asterixis during motor activity present Objective Data Labs CBC & Chem 7: 04/04/20 05:36 04/04/20 05:36 Labs: Laboratory Results - last 24 hr 03/31/20 04/03/20 04/03/20 06:49 13:45 14:11 WBC RBC Hgb Hct MCV MCH MCHC RDW Plt Count MPV Immature Gran % (Auto) Neut % (Auto) Lymph % (Auto) [place] % (Auto) Eos % (Auto) Baso % (Auto) Lymph # (Auto) [place] # (Auto) Eos # (Auto) Baso # (Auto) Abs Immat Gran (auto) Absolute Neuts (auto) Absolute Nucleated RBC Nucleated RBC % (auto) VBG pH VBG pCO2 VBG pO2 VBG HCO3 VBG O2 Saturation VBG Base Excess Sodium Potassium Chloride Carbon Dioxide Anion Gap BUN Creatinine Estim Creat Clear Calc Estimated GFR POC Glucose 141 H Random Glucose Calcium Phosphorus Magnesium Total Bilirubin AST ALT Alkaline Phosphatase Ammonia Total Protein Albumin Urine Color YELLOW Urine Appearance HAZY Urine pH 6.0 Ur Specific [place] 1.010 Urine Protein NEG Urine Glucose (UA) NEG Urine Ketones NEG Urine Blood 1+ H Urine Nitrite NEG Ur Leukocyte Esterase TRACE H Urine RBC 1-4 Urine WBC 1-4 Ur Squamous Epith Cells TRACE Urine Bacteria 1+ Urine Yeast 2+ U Random Total Protein Ur Random Sodium Urine Creatinine Crossmatch See Detail 04/03/20 04/04/20 04/04/20 21:28 00:57 05:36 WBC 12.5 H RBC 2.54 L Hgb 8.4 L Hct 25.9 L MCV 102.0 H MCH 33.1 H MCHC 32.4 RDW 22.0 H Plt Count 68 L MPV 10.6 Immature Gran % (Auto) 1.5 H Neut % (Auto) 85.9 H Lymph % (Auto) 5.7 L [place] % (Auto) 6.8 Eos % (Auto) 0.0 Baso % (Auto) 0.1 Lymph # (Auto) 0.7 L [place] # (Auto) 0.9 Eos # (Auto) 0.0 Baso # (Auto) 0.0 Abs Immat Gran (auto) 0.19 H Absolute Neuts (auto) 10.8 H Absolute Nucleated RBC 0.000 Nucleated RBC % (auto) 0.0 VBG pH VBG pCO2 VBG pO2 VBG HCO3 VBG O2 Saturation VBG Base Excess Sodium Potassium Chloride Carbon Dioxide Anion Gap BUN Creatinine Estim Creat Clear Calc Estimated GFR POC Glucose 146 H Random Glucose Calcium Phosphorus Magnesium Total Bilirubin AST ALT Alkaline Phosphatase Ammonia Total Protein Albumin Urine Color Urine Appearance Urine pH Ur Specific [place] Urine Protein Urine Glucose (UA) Urine Ketones Urine Blood Urine Nitrite Ur Leukocyte Esterase Urine RBC Urine WBC Ur Squamous Epith Cells Urine Bacteria Urine Yeast U Random Total Protein 13 H Ur Random Sodium 33.0 Urine Creatinine 43.04 Crossmatch 04/04/20 04/04/20 04/04/20 05:36 05:36 08:27 WBC RBC Hgb Hct MCV MCH MCHC RDW Plt Count MPV Immature Gran % (Auto) Neut % (Auto) Lymph % (Auto) [place] % (Auto) Eos % (Auto) Baso % (Auto) Lymph # (Auto) [place] # (Auto) Eos # (Auto) Baso # (Auto) Abs Immat Gran (auto) Absolute Neuts (auto) Absolute Nucleated RBC Nucleated RBC % (auto) VBG pH 7.45 H VBG pCO2 49 VBG pO2 74 VBG HCO3 34 VBG O2 Saturation 94.0 VBG Base Excess 9.9 Sodium 140 Potassium 3.8 Chloride 102 Carbon Dioxide 32 H Anion Gap 10 L BUN 15 Creatinine 1.06 Estim Creat Clear Calc 64.5 Estimated GFR 54 POC Glucose Random Glucose 129 H Calcium 8.9 Phosphorus 2.6 L Magnesium 1.6 Total Bilirubin 5.4 H AST 86 H ALT 32 H Alkaline Phosphatase 139 H Ammonia 44 Total Protein 5.3 L Albumin 2.5 L Urine Color Urine Appearance Urine pH Ur Specific [place] Urine Protein Urine Glucose (UA) Urine Ketones Urine Blood Urine Nitrite Ur Leukocyte Esterase Urine RBC Urine WBC Ur Squamous Epith Cells Urine Bacteria Urine Yeast U Random Total Protein Ur Random Sodium Urine Creatinine Crossmatch Microbiology Microbiology Results: Microbiology 03/29/20 14:18 Blood - Venous Blood Culture - Final No growth after 5 days. 03/29/20 14:19 Blood - Venous Blood Culture - Final No growth after 5 days. Assessment & Plan Assessment and plan (1) Acute hyponatremia: Problem details: In a setting of Liver failure Na gradually corrected Restrict hypotonic fluids Status: Acute (2) NELSY (acute kidney injury): Problem details: REsolving Monitor I/Os Status: Acute Time Spent With Patient Time: Total time spent is greater than 50% in coordination of care (as doc umented) at patient's floor/unit and/or counseling patient:
[2020-04-04] MEDS: Folic Acid 1 MG TABLET PO (11:00)
[2020-04-04] MEDS: rifAXIMin 550 MG TABLET PO ×2 (11:00→21:15)
[2020-04-04] MEDS: Pyridoxine HCl (Vitamin B6) 50 MG TABLET PO (11:00)
[2020-04-04] MEDS: Thiamine HCL 100 MG TABLET PO (11:00)
[2020-04-04 12:06] LABS: MANUAL DIFF FLAG NO
[2020-04-04 12:09] LABS: Basophils Percent Auto 0.1 % (0-2); Eosinophils Percent Auto 0.1 % (0-4); Hematocrit 26.5 % (37-47); Hemoglobin 8.6 g/dl (12.0-16.0); Imm Gran Abs Auto 0.18 X10*3/uL (0.00-0.03); Imm Gran Pct Auto 1.5 % (0.0-0.4); Lymphocytes Absolute Auto 0.9 X10*3/uL (1.2-4.9); Mean Corpuscular HGB Conc 32.5 g/dl (31.0-35.0); Mean Corpuscular Hemoglobin 33.2 pg (27.0-33.0); Mean Corpuscular Volume 102.3 fL (80-98); Mean Platelet Volume 9.9 fL (9.4-12.3); Monocytes Absolute Auto 0.9 X10*3/uL (0.1-1.2); Monocytes Percent Auto 7.6 % (2-11); Neutrophils Absolute Auto 10.3 X10*3/uL (2.0-8.3); Neutrophils Percent Auto 83.7 % (45-73); Red Blood Count 2.59 X10*6/uL (4.20-5.50); Red Cell Distribution Width 22.5 % (11.0-16.0); White Blood Count 12.3 X10*3/uL (4.8-10.8)
[2020-04-04 12:10] LABS: Platelet Count 65 X10*3/uL (160-400)
[2020-04-04 12:22] LABS: D Dimer 627 NG/ML
--- NOTE | 2020-04-04 12:36 | PM.CCPN ---
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 status post tips procedure who had altered mental status resulting in intubation elevated ammonia level treated with lactulose and right fax a min and has since been extubated but has persistent encephalopathy and on my examination no evidence of Wernicke ease features She had mild tachypnea with bilateral rhonchi and very ineffective cough but never witnessed aspiration and apparently passed the swallow examination and taking oral medications She has penicillin allergy but was given ceftriaxone at 1 point Based on persistent encephalopathy and given that she is not hypercapnic nor other any acute metabolic issues with a a repeat ammonia that is pending IA ordered a CT scan of the chest which shows extensive bilateral ground-glass infiltration with some consolidative features but mostly upper and middle lobe seemingly sparing some lower lobe not appearing to be aspiration but she has been in the hospital for 6 days so how much is potentially nosocomial and how much she may have come into the hospital 1 way or the other the x-ray has been worsening Some of this might also be post transfusion because we really do not know the timing of the worsening of her lung picture and this could be a transfusion related acute lung injury so at this point cultures are already pending at except of course for sputum because she is not intubated and we could treat as a potential hypersensitivity/ARDS issue versus nosocomial infection with stat dose of vancomycin and meropenem and Decadron and we will await input from Infectious Disease and a screening ESR is pending Physical Exam Vital Signs: Vital Signs: Last Vital Signs Temp 98.2 F 04/04/20 12:00 Pulse 93 04/04/20 12:00 Resp 14 04/04/20 12:00 BP 116/59 L 04/04/20 12:00 Pulse Ox 95 04/04/20 12:00 Body Mass Index 36.8 Const: Other: She is arousable but very lethargic and is capable of following simple commands but clearly has a blank almost dissociated stair but of course was started on risperidone Her tone is equal bilaterally and capable of moving all 4 extremities has no ocular motor issues and pupils are equal and sluggishly reactive Cardiac exam with normal S1 and normal S2 and no gallops no neck vein distension and good bilateral carotid upstrokes Bilateral rhonchi Abdomen not distended and it is nontender no palpable organomegaly Skin is intact warm and well perfused Objective Data Labs CBC & Chem 7: 04/04/20 11:46 04/04/20 05:36 Labs: Laboratory Results - last 24 hr 03/31/20 04/03/20 04/03/20 06:49 13:45 14:11 WBC RBC Hgb Hct MCV MCH MCHC RDW Plt Count MPV Immature Gran % (Auto) Neut % (Auto) Lymph % (Auto) [place] % (Auto) Eos % (Auto) Baso % (Auto) Lymph # (Auto) [place] # (Auto) Eos # (Auto) Baso # (Auto) Abs Immat Gran (auto) Absolute Neuts (auto) Absolute Nucleated RBC Nucleated RBC % (auto) D-Dimer VBG pH VBG pCO2 VBG pO2 VBG HCO3 VBG O2 Saturation VBG Base Excess Sodium Potassium Chloride Carbon Dioxide Anion Gap BUN Creatinine Estim Creat Clear Calc Estimated GFR POC Glucose 141 H Random Glucose Calcium Phosphorus Magnesium Total Bilirubin AST ALT Alkaline Phosphatase Ammonia Total Protein Albumin Urine Color YELLOW Urine Appearance HAZY Urine pH 6.0 Ur Specific [place] 1.010 Urine Protein NEG Urine Glucose (UA) NEG Urine Ketones NEG Urine Blood 1+ H Urine Nitrite NEG Ur Leukocyte Esterase TRACE H Urine RBC 1-4 Urine WBC 1-4 Ur Squamous Epith Cells TRACE Urine Bacteria 1+ Urine Yeast 2+ U Random Total Protein Ur Random Sodium Urine Creatinine Crossmatch See Detail 04/03/20 04/04/20 04/04/20 21:28 00:57 05:36 WBC 12.5 H RBC 2.54 L Hgb 8.4 L Hct 25.9 L MCV 102.0 H MCH 33.1 H MCHC 32.4 RDW 22.0 H Plt Count 68 L MPV 10.6 Immature Gran % (Auto) 1.5 H Neut % (Auto) 85.9 H Lymph % (Auto) 5.7 L [place] % (Auto) 6.8 Eos % (Auto) 0.0 Baso % (Auto) 0.1 Lymph # (Auto) 0.7 L [place] # (Auto) 0.9 Eos # (Auto) 0.0 Baso # (Auto) 0.0 Abs Immat Gran (auto) 0.19 H Absolute Neuts (auto) 10.8 H Absolute Nucleated RBC 0.000 Nucleated RBC % (auto) 0.0 D-Dimer VBG pH VBG pCO2 VBG pO2 VBG HCO3 VBG O2 Saturation VBG Base Excess Sodium Potassium Chloride Carbon Dioxide Anion Gap BUN Creatinine Estim Creat Clear Calc Estimated GFR POC Glucose 146 H Random Glucose Calcium Phosphorus Magnesium Total Bilirubin AST ALT Alkaline Phosphatase Ammonia Total Protein Albumin Urine Color Urine Appearance Urine pH Ur Specific [place] Urine Protein Urine Glucose (UA) Urine Ketones Urine Blood Urine Nitrite Ur Leukocyte Esterase Urine RBC Urine WBC Ur Squamous Epith Cells Urine Bacteria Urine Yeast U Random Total Protein 13 H Ur Random Sodium 33.0 Urine Creatinine 43.04 Crossmatch 04/04/20 04/04/20 04/04/20 05:36 05:36 08:27 WBC RBC Hgb Hct MCV MCH MCHC RDW Plt Count MPV Immature Gran % (Auto) Neut % (Auto) Lymph % (Auto) [place] % (Auto) Eos % (Auto) Baso % (Auto) Lymph # (Auto) [place] # (Auto) Eos # (Auto) Baso # (Auto) Abs Immat Gran (auto) Absolute Neuts (auto) Absolute Nucleated RBC Nucleated RBC % (auto) D-Dimer VBG pH 7.45 H VBG pCO2 49 VBG pO2 74 VBG HCO3 34 VBG O2 Saturation 94.0 VBG Base Excess 9.9 Sodium 140 Potassium 3.8 Chloride 102 Carbon Dioxide 32 H Anion Gap 10 L BUN 15 Creatinine 1.06 Estim Creat Clear Calc 64.5 Estimated GFR 54 POC Glucose Random Glucose 129 H Calcium 8.9 Phosphorus 2.6 L Magnesium 1.6 Total Bilirubin 5.4 H AST 86 H ALT 32 H Alkaline Phosphatase 139 H Ammonia 44 Total Protein 5.3 L Albumin 2.5 L Urine Color Urine Appearance Urine pH Ur Specific [place] Urine Protein Urine Glucose (UA) Urine Ketones Urine Blood Urine Nitrite Ur Leukocyte Esterase Urine RBC Urine WBC Ur Squamous Epith Cells Urine Bacteria Urine Yeast U Random Total Protein Ur Random Sodium Urine Creatinine Crossmatch 04/04/20 04/04/20 11:46 11:46 WBC 12.3 H RBC 2.59 L Hgb 8.6 L Hct 26.5 L MCV 102.3 H MCH 33.2 H MCHC 32.5 RDW 22.5 H Plt Count 65 L MPV 9.9 Immature Gran % (Auto) 1.5 H Neut % (Auto) 83.7 H Lymph % (Auto) 7.0 L [place] % (Auto) 7.6 Eos % (Auto) 0.1 Baso % (Auto) 0.1 Lymph # (Auto) 0.9 L [place] # (Auto) 0.9 Eos # (Auto) 0.0 Baso # (Auto) 0.0 Abs Immat Gran (auto) 0.18 H Absolute Neuts (auto) 10.3 H Absolute Nucleated RBC 0.000 Nucleated RBC % (auto) 0.0 D-Dimer 627 VBG pH VBG pCO2 VBG pO2 VBG HCO3 VBG O2 Saturation VBG Base Excess Sodium Potassium Chloride Carbon Dioxide Anion Gap BUN Creatinine Estim Creat Clear Calc Estimated GFR POC Glucose Random Glucose Calcium Phosphorus Magnesium Total Bilirubin AST ALT Alkaline Phosphatase Ammonia Total Protein Albumin Urine Color Urine Appearance Urine pH Ur Specific [place] Urine Protein Urine Glucose (UA) Urine Ketones Urine Blood Urine Nitrite Ur Leukocyte Esterase Urine RBC Urine WBC Ur Squamous Epith Cells Urine Bacteria Urine Yeast U Random Total Protein Ur Random Sodium Urine Creatinine Crossmatch Microbiology Microbiology Results: Microbiology 04/03/20 14:06 Urine [place] Urine Culture - Preliminary Culture in progress. 03/29/20 14:18 Blood - Venous Blood Culture - Final No growth after 5 days. 03/29/20 14:19 Blood - Venous Blood Culture - Final No growth after 5 days. Progress Note: A&P Assessment and plan (1) NELSY (acute kidney injury): Problem details: REsolving Monitor I/Os Status: Acute (2) Acute liver failure: Status: Acute (3) Acute hyponatremia: Problem details: In a setting of Liver failure Na gradually corrected Restrict hypotonic fluids Status: Acute (4) Acute hepatic encephalopathy: Status: Acute (5) Heroin abuse: Status: Acute (6) Pneumonia: Status: Acute (7) Chronic liver failure: Status: Acute (8) Advanced hepatic cirrhosis: Status: Acute (9) Anemia: Status: Acute (10) Lactic acid acidosis: Status: Acute Assessment and Plan: So I a.m. initiating steroid plus antibiotics to cover for nosocomial infection and awaiting Infectious Disease consult and a sed rate to help point us in the direction but will continue for now the right fax a min and lactulose Time Spent With Patient Time: Total time spent is greater than 50% in coordination of care (as documented) at patient's floor/unit and/or counseling patient: Total time spent with greater than 50% in coordination of care (as documented) at patient's floor/unit and/or counseling patient:: 60
[2020-04-04 12:40] LABS: C Reactive Protein 1.91 mg/dL (< or = 0.50); Glucose Random 123 mg/dL (60-115); Lactate Dehydrogenase 407 U/L (122-220); Magnesium 1.6 mg/dL (1.6-2.6); Phosphorus 2.6 mg/dL (2.7-4.5)
--- NOTE | 2020-04-04 12:45 | PM.CCN ---
Critical Care Event Note Summary Code activated: No Narrative: This case had a high probability of a clinically significant, sudden, or life threatening deterioration of this patient's condition which required my full and direct attention, intervention and personal management. Just indicate that the elevated lactic acidosis has nothing to do with sepsis it is all due to symptomatic bradycardia and low cardiac output as a result Critical Care Time (minutes): 15
[2020-04-04 12:59] LABS: Procalcitonin 0.08 ng/mL
[2020-04-04] MEDS: vancomycin HCL 1,000 MG in 0.9 % Sodium Chloride 250 ML 270 MG IV (13:15)
[2020-04-04] MEDS: dexAMETHasone sod phosphate 4 MG/ML VIAL IVPUSH ×2 (13:18→21:15)
[2020-04-04 13:21] LABS: COVID-19 Test Negative (Negative); IDNOW Serial# 9DD0AD1C
[2020-04-04 13:39] LABS: Erythrocyte Sedimentation Rate 9 MM/HR (0-20)
--- NOTE | 2020-04-04 14:19 | PC.NURSE ---
pt slept in naps in am, awake upon verbal arousal, alert to person, vague to time, disoriented to situation, constantly asks for gingerale and water, yelling out for nurse, pt on RA, o2 sat in low 90's, intermittent non productive cough, constantly repositioning in bed, ayasys monitor at bedside, pt continues to try to get out of bed, got pt oob to recliner, 2 assist, within 5 mins pt yelling out to get back to bed, explained to patient it will be better for her to be out of the bed for a little while, bess intact, draining concentrated yellow urine, pt sclera is yellow, bruising noted to R groin, pt had chest and abdomen CT today and repeat covid test, pt back to bed and will cont to monitor
--- NOTE | 2020-04-04 14:54 | MHC.CM.PN ---
Per MD rounds, AMS continues, ? etiology. To have MRI. Nurse reports pt confused and does not follow commands consistantly. CM spoke with Malena Rachel, HCP and Friend ([phone]). She tells CM that pt has been living independently and has not worked in over 10 years secondary to alcohol mis-use. Malena is quite distressed about relapse of heroin use, as she tells CM that pt was on liver transplant list at [facility] and now will not remain on list because of heroin. Spoke with Malena regarding possible rehabilitation/LTC placement pending patient's hospital course. Requests pt be placed locally, but not at [facility]. Referrals placed. [facility], [facility] and [facility] will follow. Will continue to follow for d/c needs
[2020-04-04] MEDS: Magnesium Sulfate/D5W 1 GM/100 ML PIGGYBACK IV (16:07)
[2020-04-04] MEDS: traMADoL HCL 50 MG TABLET PO (16:07)
[2020-04-04] MEDS: Midazolam HCl/PF 2 MG/2 ML VIAL 1 MG IVPUSH ×2 (17:55→23:21)
[2020-04-04] MEDS: risperiDONE 0.5 MG TABLET PO (18:05)
--- NOTE | 2020-04-04 18:15 | PC.NURSE ---
Assumed care at 1500 - patient extremely restless, rolling side to side c/o of worsening back pain - Tramadol 50mg PO ordered and administered with no relief. Patient yelling out I cant breath , HR 110-120's sinus, O2 sat 89-91% - MD notified of patient complaints and condition. Versed 1mg IVP ordered and administered, High Flow 30% 30L ordered and placed by RT - 2100 Risperadol 0.5mg administered early per MD. Patient currently laying in bed with eyes closed and snoring, appears much more comfortable. O2 97%, HR 88, BP 131/72, RR 14. Will continue to monitor.
[2020-04-04] MEDS: Baclofen 10 MG TABLET PO (21:16)
[2020-04-05] VITALS (14 sets, daily range): BP systolic 107–152; BP diastolic 54–94; PULSE 68–98; RESP 12–20; TEMP 36–36.8; O2SAT 91–100; BMI 35.0
[2020-04-05] MEDS: 0.9 % Sodium Chloride Flush 3 ML SYRINGE IVFLUSH ×4 (01:28→20:16)
[2020-04-05] MEDS: Lactulose 20 GM/30 ML SOLUTION 30 GM G-TUBE ×3 (01:59→16:30)
[2020-04-05] MEDS: vancomycin HCL 1,000 MG in 0.9 % Sodium Chloride 250 ML 270 MG IV ×2 (01:59→12:57)
[2020-04-05] MEDS: oxyCODONE HCl Immed Release 5 MG TABLET PO ×3 (03:36→16:31)
[2020-04-05 06:14] LABS: D Dimer 693 NG/ML; Partial Thromboplastin Time 46.8 SEC (24.1-38.0)
[2020-04-05 06:20] LABS: Anion Gap 12 (12-20); Blood Urea Nitrogen 10 mg/dL (9-16); C Reactive Protein 1.39 mg/dL (< or = 0.50); Calcium 8.7 mg/dL (8.4-10.2); Carbon Dioxide 28 mmol/L (22-29); Chloride 101 mmol/L (96-108); Creatinine Clr Calc Pharmacy 82.2; Estimated Glomerular Filt Rate > 60; Glucose Random 122 mg/dL (60-115); Hematocrit 25.6 % (37-47); Hemoglobin 8.3 g/dl (12.0-16.0); Imm Gran Abs Auto 0.15 X10*3/uL (0.00-0.03); Imm Gran Pct Auto 1.4 % (0.0-0.4); Lactate Dehydrogenase 477 U/L (122-220); Lymphocytes Absolute Auto 0.5 X10*3/uL (1.2-4.9); Lymphocytes Percent Auto 4.8 % (20-40); MANUAL DIFF FLAG SCAN; Magnesium 1.6 mg/dL (1.6-2.6); Mean Corpuscular HGB Conc 32.4 g/dl (31.0-35.0); Mean Corpuscular Hemoglobin 32.9 pg (27.0-33.0); Mean Corpuscular Volume 101.6 fL (80-98); Mean Platelet Volume 10.4 fL (9.4-12.3); Monocytes Absolute Auto 0.5 X10*3/uL (0.1-1.2); Monocytes Percent Auto 4.5 % (2-11); Neutrophils Absolute Auto 9.2 X10*3/uL (2.0-8.3); Neutrophils Percent Auto 89.3 % (45-73); Platelet Count 57 X10*3/uL (160-400); Potassium 3.7 mmol/l (3.3-5.1); Red Blood Count 2.52 X10*6/uL (4.20-5.50); Red Cell Distribution Width 21.9 % (11.0-16.0); SCAN SMEAR FLAG 1; Sodium 137 mmol/L (135-145); White Blood Count 10.4 X10*3/uL (4.8-10.8)
[2020-04-05 06:33] LABS: SLIDE REVIEW VERIFIED
[2020-04-05 06:39] LABS: Base Excess VBG 8.8 mmol/L; HCO3 VBG 34 mmol/L; PCO2 VBG 58 mmHg; PO2 VBG 64 mmHg; pH VBG 7.38 (7.32-7.43)
--- NOTE | 2020-04-05 06:39 | PC.NURSE ---
Shift eval 7p-7a: Patient restless/demanding/calling out through the night. Attempted to medicate patient w/ 1mg IVP versed @ 2321 with little effect. Patient continued to call out, frequent redirection needed. Rolling back in forth in bed constantly. Patient asking for oxycodone - Kathryn MARYLU made aware - ordered one time dose 5mg IR oxycodone - given @ 0336 for 10/10 back pain. Medicated w/ good effect, patient fell asleep at approx 0430. Patient cooperative w/ care, but for only short amount of times. Right subclavian TLC dressing changed. Vitals stable. Initially patient on high flow oxygen 35L & 35%, but patient did not tolerate well. Transferred patient to nasal cannula 2 liters, which patient tolerated better. Patient needing to be on 2 liters nasal cannula in order for O2sat to be 93-95%. Without 2 liters, patient O2sat down to 88%. Patient has non-product cough, RR 16-20. Afebrile. Taking medications, including scheduled lactulose without issue. No stools at this time.? Large bruise noted on right groin, upper thigh area, from TLC on right fem that was removed. No increase in swelling or bruising at this time.?+CMS to right lower extremity.? @ 0415, patient repositioned, linen changed, bathed. Encouraged to try and sleep.?
[2020-04-05 06:53] LABS: Procalcitonin 0.06 ng/mL
[2020-04-05] MEDS: Albuterol/Iprat 2.5/0.5MG 3 ML AMPUL.NEB INHALE ×3 (07:30→20:39)
[2020-04-05] MEDS: Pyridoxine HCl (Vitamin B6) 50 MG TABLET PO (07:34)
[2020-04-05] MEDS: Folic Acid 1 MG TABLET PO (07:34)
[2020-04-05] MEDS: rifAXIMin 550 MG TABLET PO ×2 (07:34→20:16)
[2020-04-05] MEDS: Omeprazole 20 MG CAPSULE.DR PO (07:34)
[2020-04-05] MEDS: dexAMETHasone sod phosphate 4 MG/ML VIAL IVPUSH ×2 (07:34→20:16)
[2020-04-05] MEDS: Thiamine HCL 100 MG TABLET PO (07:35)
[2020-04-05 08:10] LABS: Glucose, Whole Blood 118 mg/dL (60-115)
--- NOTE | 2020-04-05 10:25 | PC.NURSE ---
Addendum entered by Raquel Harrington RN 04/05/20 18:08: Patient continuing to eat less than 25% of meals, encouraging glucerna supplement. Rodriguez removed earlier, DTV at 1730, voided 200 cc of concentrated urine with small amount of sediment. Addendum entered by Raquel Harrington RN 04/05/20 12:30: Patient having increased restlessness and stating she is having trouble breathing on 2L via NC with 02 sats between 85-88%. Md aware and at bedside. Placed on highflow on 35 L and 50% fio2 with 02 sat of 100%. Patient now resting in bed with eyes closed at this time. Original Note: This morning patient easily arousable and oriented to person, time, and situation. Throughout the morning patient becoming increasingly restless and stating she has back pain. MD aware. Ordered prn 5 mg po oxycodone given with moderate effect, patient still restless and calling out at times. Requiring frequent repositioning, redirection and education on hospital environment, safety, and pain management. Telesitter at bedside for safety. Oxygen saturations trending in the low 90s on RA, desats briefly down to the mid 80s with exertion but patient recovers fast. Otherwise VS stable. SR on tele. Rhonci LS throughout. PMHX of diabetes. POC 118. Diabetic diet ordered. Patient eating <25% of breakfast, requested dietary supplement from Dietary. Pills taken whole with water without difficulty. Urine output trending 60-75 cc/hr. Rodriguez removed per MD. No BM at this time. Scheduled lactulose given.
--- NOTE | 2020-04-05 10:33 | MHC.CLN ---
F/U NSG REPORTS POOR PO WILL START GLUCERNA BID TO INCREASE PO FOLLOWING
--- NOTE | 2020-04-05 13:44 | PM.CCPN ---
Subjective Subjective Date of Service: 04/05/20 Interval History: 55-year-old female heroin abuser an opiate positive on this admission with altered mental status due to that in combination with hepatic encephalopathy and she is status post TIPS procedure enhancing her risk for encephalopathy and apparently was also anemic with a hemoglobin in the 6 is received 2 units of transfusion and currently is now extubated after being on the ventilator because of her depressed mental status and but has what appears to be diffuse bilateral ARDS like picture with infiltrates mostly sparing the lower lobes making aspiration very unlikely raising the possibility of transfusion related acute lung injury versus hypersensitivity issues with the ceftriaxone that she received or atypical viral pneumonia On nasal cannula she did voice some a knees with her breathing clearly was making some diaphragmatic effort and was a little more tachypneic saturations in the mid 80s and placed on high-flow she immediately compensated to 100% and she remains on Decadron in case this is hypersensitivity and we did contact Infectious Disease and have not yet heard any recommendations but we covered with meropenem and vancomycin for nosocomial pneumonia just in case at and hopefully further advice from Infectious Disease Physical Exam Vital Signs: Vital Signs: Last Vital Signs Temp 97.2 F 04/05/20 07:49 Pulse 92 04/05/20 11:53 Resp 14 04/05/20 11:53 BP 132/72 04/05/20 11:53 Pulse Ox 100 04/05/20 12:28 Body Mass Index 35.0 Const: Other: She is awake and alert follows commands very demanding of opioids she is chronically dependent on oxycodone so she is currently on that low-dose with p.r.n. tramadol and apparently she does have hardware in the lower spine which is where most of her pain seems to be centered but neurologically nonfocal and ammonia level is coming down and cognitive function is much improved Cardiac exam with no neck vein distension and good bilateral carotid upstrokes and no gallops Chest with with scattered bilateral rhonchi Abdomen somewhat distended but nontender good bowel sounds big issue is no bowel movement and she is on lactulose Skin intact no open wounds no pressure sores no edema Objective Data Labs CBC & Chem 7: 04/05/20 05:20 04/05/20 05:20 Labs: Laboratory Results - last 24 hr 04/05/20 04/05/20 04/05/20 05:20 05:20 05:20 WBC 10.4 RBC 2.52 L Hgb 8.3 L Hct 25.6 L MCV 101.6 H MCH 32.9 MCHC 32.4 RDW 21.9 H Plt Count 57 L MPV 10.4 Immature Gran % (Auto) 1.4 H Neut % (Auto) 89.3 H Lymph % (Auto) 4.8 L [place] % (Auto) 4.5 Eos % (Auto) 0.0 Baso % (Auto) 0.0 Lymph # (Auto) 0.5 L [place] # (Auto) 0.5 Eos # (Auto) 0.0 Baso # (Auto) 0.0 Abs Immat Gran (auto) 0.15 H Absolute Neuts (auto) 9.2 H Absolute Nucleated RBC 0.000 Nucleated RBC % (auto) 0.0 Smear Tech's Comments VERIFIED PT 24.0 H INR 2.0 H APTT 46.8 H D-Dimer 693 VBG pH VBG pCO2 VBG pO2 VBG HCO3 VBG O2 Saturation VBG Base Excess Sodium 137 Potassium 3.7 Chloride 101 Carbon Dioxide 28 Anion Gap 12 BUN 10 Creatinine 0.81 Estim Creat Clear Calc 82.2 Estimated GFR > 60 POC Glucose Random Glucose 122 H Calcium 8.7 Phosphorus 3.0 Magnesium 1.6 Lactate Dehydrogenase 477 H Total Creatine Kinase 122 D C-Reactive Protein 1.39 H Procalcitonin 04/05/20 04/05/20 04/05/20 05:20 05:20 08:05 WBC RBC Hgb Hct MCV MCH MCHC RDW Plt Count MPV Immature Gran % (Auto) Neut % (Auto) Lymph % (Auto) [place] % (Auto) Eos % (Auto) Baso % (Auto) Lymph # (Auto) [place] # (Auto) Eos # (Auto) Baso # (Auto) Abs Immat Gran (auto) Absolute Neuts (auto) Absolute Nucleated RBC Nucleated RBC % (auto) Smear Tech's Comments PT INR APTT D-Dimer VBG pH 7.38 VBG pCO2 58 VBG pO2 64 VBG HCO3 34 VBG O2 Saturation 88.0 VBG Base Excess 8.8 Sodium Potassium Chloride Carbon Dioxide Anion Gap BUN Creatinine Estim Creat Clear Calc Estimated GFR POC Glucose 118 H Random Glucose Calcium Phosphorus Magnesium Lactate Dehydrogenase Total Creatine Kinase C-Reactive Protein Procalcitonin 0.06 Microbiology Microbiology Results: Microbiology 04/03/20 14:06 Urine Rodriguez [place] Urine Culture - Preliminary Yeast Enterococcus/Streptococcus sp 04/03/20 13:21 Blood - Venous Blood Culture - Preliminary No growth after 24 hours. 04/03/20 13:21 Blood - Venous Blood Culture - Preliminary No growth after 24 hours. 03/29/20 14:18 Blood - Venous Blood Culture - Final No growth after 5 days. 03/29/20 14:19 Blood - Venous Blood Culture - Final No growth after 5 days. Progress Note: A&P Assessment and plan (1) NELSY (acute kidney injury): Problem details: REsolving Monitor I/Os Status: Acute (2) Acute liver failure: Status: Acute (3) Acute hyponatremia: Problem details: In a setting of Liver failure Na gradually corrected Restrict hypotonic fluids Status: Acute (4) Acute hepatic encephalopathy: Status: Acute (5) Heroin abuse: Status: Acute (6) Pneumonia: Status: Acute (7) Chronic liver failure: Status: Acute (8) Advanced hepatic cirrhosis: Status: Acute (9) Anemia: Status: Acute (10) Lactic acid acidosis: Status: Acute Assessment and Plan: So she will remain supported on high-flow nasal cannula at 30 L and 50% FiO2 and slowly wean with follow-up CT scan in several days from now and antibiotics per Infectious Disease and I will also maintain Decadron she needs to remain on maintenance lactulose and right fax a min to prevent the hepatic encephalopathy Time Spent With Patient Time: Total time spent is greater than 50% in coordination of care (as documented) at patient's floor/unit and/or counseling patient: Total time spent with greater than 50% in coordination of care (as documented) at patient's floor/unit and/or counseling patient:: 40
--- NOTE | 2020-04-05 14:58 | W.PM.IDCN ---
History of Present Illness Data of Consult Service Date: 04/05/20 Requesting physician: Aurelio Campos Primary Care Provider: Unknown Physician HPI Reason for consult: pneumonia She presents to hospital with overdose on 03/29/2020 She took heroin and was intubated. She had mental status changes and now is alert However she has diffuse infiltrates on Xray She has been in ICU She was started on IV Vancomycin day 2 and Merepenem She is on supportive oxygen. Review of Systems Review of Systems: Yes Unobtainable due to mental condition PMFSH Past Medical History Medical History Abnormal CT scan, gastrointestinal tract Anemia Anxiety Chronic back pain Chronic hyponatremia Cirrhosis Coagulopathy Congestive heart failure COPD (chronic obstructive pulmonary disease) Depression Diabetes 1.5, managed as type 2 Hyponatremia Liver disease Pneumonia PTSD (post-traumatic stress disorder) Thrombocytopenia Family History Family History Other HTN (hypertension) Family history: reviewed and not pertinent Surgical History Surgical History History of cholecystectomy Previous back surgery S/P TIPS (transjugular intrahepatic portosystemic shunt) Social History Social History Household Members: Significant Other Housing: House Alcohol intake: former Smoking Status: Former smoker Tobacco Type: Cigarette Packs Per Day: 0.5 Years Smoked: 40 Second Hand Smoke Exposure: No Use of substances other than those prescribed or required for medical reasons: Unknown Substance Use Type: Heroin and Marijuana Currently Displaying Signs/Symptoms of Drug Intoxication Withdrawal: No Have you been hit, kicked, punched, or otherwise hurt by someone within the past year? If so, by whom?: No Do you feel safe in your current relationship?: Yes Is there a partner from a previous relationship who is making you feel unsafe now?: No Are you made to feel afraid or neglected: No Advance Directives: No Advance Directives Information Provided: Yes Do you have thoughts of harming others: None Do you have a plan to hurt others: No Plan Recently lost weight without trying: No service: No Current occupational status: unemployed Meds Allergies Allergy/AdvReac Type Severity Reaction Status Date / Time Iodinated Contrast Media Allergy Severe ANAPHYLAXIS Verified 04/18/20 00:44 [CONTRAST, IV] amoxicillin [AMOXICILLIN] Allergy Intermediate NAUSEA & Verified 04/18/20 00:44 VOMITING lamotrigine [From LAMICTAL] Allergy Intermediate RASH Verified 04/18/20 00:44 Sulfa (Sulfonamide Allergy Intermediate Rash Verified 04/18/20 00:44 Antibiotics) [SULFA (SULFONAMIDE ANTIBIOTICS)] sulfamethoxazole Allergy Intermediate Rash Verified 04/18/20 00:44 [From BACTRIM] trimethoprim [From BACTRIM] Allergy Intermediate Rash Verified 04/18/20 00:44 Home Medications Medication Instructions Recorded Confirmed Type Xifaxan 550 mg PO BID 01/20/20 04/18/20 History folic acid 1 mg PO DAILY 01/20/20 04/18/20 History potassium chloride 40 meq PO DAILY 01/20/20 04/18/20 History Flovent HFA 2 puff INHALATION BID 02/09/20 04/18/20 History albuterol sulfate 2 puff INHALATION Q4H PRN 02/09/20 04/18/20 History calcium carbonate [Antacid Ext Str 1 tab PO TID PRN 02/09/20 04/18/20 History (calcium carb)] thiamine HCl (vitamin B1) 100 mg PO DAILY 02/09/20 04/18/20 History baclofen 10 mg PO BID 02/13/20 04/18/20 History cetirizine 10 mg PO DAILY 02/19/20 04/18/20 History metformin 750 mg PO DAILY@1700 02/19/20 04/18/20 History pyridoxine (vitamin B6) 50 mg PO DAILY 02/19/20 04/18/20 History Stiolto Respimat 2 puff INHALATION DAILY 02/26/20 04/18/20 History acetaminophen 500 mg PO Q6H PRN 04/18/20 04/18/20 History buprenorphine 1 patch TRANSDERMAL QWEEK 04/18/20 04/18/20 History cholecalciferol (vitamin D3) 50 mcg PO DAILY 04/18/20 04/18/20 History [Vitamin D3] docusate sodium 100 mg PO BID PRN 04/18/20 04/18/20 History gabapentin 300 mg PO TID 04/18/20 04/18/20 History magnesium oxide 400 mg PO BID 04/18/20 04/18/20 History omeprazole 20 mg PO BID@0630,1630 04/18/20 04/18/20 History risperidone 1 mg PO BID 04/18/20 04/18/20 History spironolactone 25 mg PO DAILY 04/18/20 04/18/20 History torsemide 40 mg PO DAILY 04/18/20 04/18/20 History Physical Exam Vital Signs: Vital Signs: Last Vital Signs Temp 97.2 F 04/05/20 07:49 Pulse 86 04/05/20 14:33 Resp 12 04/05/20 14:32 BP 132/72 04/05/20 11:53 Pulse Ox 100 04/05/20 12:28 Body Mass Index 35.0 Const: General: cooperative Orientation/consciousness: patient oriented x3 HENMT: Head: Yes normal to inspection Mouth: Normal oral and palatal mucosa present Eyes: General: appearance normal, both eyes and all related structures Resp: Effort & Inspection: normal respiratory effort Cardio: Rate: regular rate Rhythm: regular rhythm GI: Inspection: Yes normal to inspection : General: Yes no CVA tenderness Back/Spine/Pelvis: Back: no CVA tenderness Skin: General skin exam: no rashes or lesions noted Neuro: General: patient oriented x3 Extrem: General: Yes normal to inspection Assessment and Plan (1) Acute hepatic encephalopathy: Status: Resolved (2) Pneumonia: Qualifiers: Laterality: left Lung location: upper lobe of lung Pneumonia type: due to unspecified organism Qualified Code(s): J18.9 - Pneumonia, unspecified organism Problem details: There is concern over aspiration/atypical organisms She is taking po Urine likely colonized as no symptoms Status: Resolved Continue Merem and Vancomycin for now Check nares MRSA and procalcitonin Would give atypical Doxycycline Check HIV Results Labs CBC & Chem 7: 04/09/20 06:25 04/09/20 06:25 Labs: Short CBC 04/05/20 Range/Units 05:20 WBC 10.4 (4.8-10.8) X10*3/uL Hgb 8.3 L (12.0-16.0) g/dl Hct 25.6 L (37-47) % Plt Count 57 L (160-400) X10*3/uL BMP 04/05/20 05:20 Sodium 137 Potassium 3.7 Chloride 101 Carbon Dioxide 28 BUN 10 Creatinine 0.81 Calcium 8.7 Cardiac Enzymes 04/05/20 Range/Units 05:20 Total Creatine Kinase 122 D (26-140) U/L Microbiology Microbiology Results: Microbiology 04/03/20 14:06 Urine [place] Urine Culture - Preliminary Yeast Enterococcus/Streptococcus sp 04/03/20 13:21 Blood - Venous Blood Culture - Preliminary No growth after 24 hours. 04/03/20 13:21 Blood - Venous Blood Culture - Preliminary No growth after 24 hours. 03/29/20 14:18 Blood - Venous Blood Culture - Final No growth after 5 days. 03/29/20 14:19 Blood - Venous Blood Culture - Final No growth after 5 days.
[2020-04-05 17:55] LABS: Procalcitonin 0.06 ng/mL
[2020-04-05] MEDS: Baclofen 10 MG TABLET PO (20:16)
[2020-04-05] MEDS: risperiDONE 0.5 MG TABLET PO (20:16)
[2020-04-06] VITALS (10 sets, daily range): BP systolic 112–135; BP diastolic 49–79; PULSE 67–106; RESP 9–22; TEMP 36.3–36.9; O2SAT 92–100; BMI 35.8
[2020-04-06] MEDS: Lactulose 20 GM/30 ML SOLUTION 30 GM G-TUBE ×3 (01:25→17:41)
[2020-04-06] MEDS: vancomycin HCL 1,000 MG in 0.9 % Sodium Chloride 250 ML 270 MG IV (01:25)
[2020-04-06 05:48] LABS: Base Excess VBG 15.6 mmol/L; HCO3 VBG 42 mmol/L; PCO2 VBG 65 mmHg; PO2 VBG 59 mmHg; pH VBG 7.41 (7.32-7.43)
[2020-04-06 05:54] LABS: INTERNATIONAL NORM RATIO 1.9 (0.9-1.1); Prothrombin Time 22.3 SEC (10.8-13.0)
[2020-04-06 05:57] LABS: Partial Thromboplastin Time 41.2 SEC (24.1-38.0)
[2020-04-06 06:05] LABS: Ammonia 54 umol/L (13-55)
[2020-04-06 06:12] LABS: Anion Gap 11 (12-20); Blood Urea Nitrogen 10 mg/dL (9-16); Calcium 8.7 mg/dL (8.4-10.2); Carbon Dioxide 30 mmol/L (22-29); Chloride 102 mmol/L (96-108); Creatinine Clr Calc Pharmacy 80.2; Estimated Glomerular Filt Rate > 60; Glucose Random 155 mg/dL (60-115); Potassium 4.1 mmol/l (3.3-5.1); Sodium 139 mmol/L (135-145)
--- NOTE | 2020-04-06 06:17 | PC.NURSE ---
Alert and oriented x 3. Vague to situation. Using call orellana appropriately. Receptive to teaching re: hospital stay and care plan. No complaints of pain. Sinus rhythm/makayla low 50's. Off O2 this am per patient request, satting mid 90's on RA. Tolerating po fluids and snacks. Urinating in commode. OOB to recliner this am. Skin intact.
[2020-04-06] MEDS: Albuterol/Iprat 2.5/0.5MG 3 ML AMPUL.NEB INHALE (07:25)
[2020-04-06] MEDS: Sodium Phosphate,Mono-Dibasic 133 ML ENEMA PR (07:42)
[2020-04-06] MEDS: 0.9 % Sodium Chloride Flush 3 ML SYRINGE IVFLUSH ×2 (07:43→15:50)
[2020-04-06 08:03] LABS: Procalcitonin 0.05 ng/mL
[2020-04-06 08:07] LABS: MRSA Nasal PCR NEGATIVE (Negative); SA Nasal PCR NEGATIVE (Negative)
[2020-04-06] MEDS: Folic Acid 1 MG TABLET PO (08:25)
[2020-04-06] MEDS: Thiamine HCL 100 MG TABLET PO (08:25)
[2020-04-06] MEDS: dexAMETHasone sod phosphate 4 MG/ML VIAL IVPUSH (08:25)
[2020-04-06] MEDS: rifAXIMin 550 MG TABLET PO (08:25)
[2020-04-06] MEDS: oxyCODONE HCl Immed Release 5 MG TABLET PO ×3 (08:25→23:13)
[2020-04-06] MEDS: Pyridoxine HCl (Vitamin B6) 50 MG TABLET PO (08:25)
[2020-04-06 09:10] LABS: HIV AB/AG Nonreactive (Nonreactive); HIV Num 1 0.14 S/CO (0.00-0.99)
--- NOTE | 2020-04-06 09:55 | MHC.CLN ---
F/U PO INTAKE 25% DIET RX: 2200DM-APPROPRIATE PT RECEIVING GLUCERNA BID TO INCREASE KCALS FOLLOWING
--- NOTE | 2020-04-06 12:43 | PM.IDPN ---
Subjective Subjective Date of Service: 04/06/20 Interval History: she is eating,she has no complaints she has no dysuria,frequency or hematuria Objective Data Labs CBC & Chem 7: 04/05/20 05:20 04/06/20 05:30 Labs: Laboratory Results - last 24 hr 04/05/20 04/05/20 04/05/20 16:49 16:49 16:56 PT INR APTT VBG pH VBG pCO2 VBG pO2 VBG HCO3 VBG O2 Saturation VBG Base Excess Sodium Potassium Chloride Carbon Dioxide Anion Gap BUN Creatinine Estim Creat Clear Calc Estimated GFR Random Glucose Calcium Ammonia Procalcitonin 0.06 Nasal Screen MRSA (PCR) NEGATIVE Nasal S. aureus Screen NEGATIVE Nasal MRSA/S.aureus Interp SEE NOTE Vancomycin Trough HIV 1&2 Ab/P24 Ag 4thGn Nonreactive 04/06/20 04/06/20 04/06/20 00:09 05:30 05:30 PT 22.3 H INR 1.9 H APTT 41.2 H VBG pH VBG pCO2 VBG pO2 VBG HCO3 VBG O2 Saturation VBG Base Excess Sodium 139 Potassium 4.1 Chloride 102 Carbon Dioxide 30 H Anion Gap 11 L BUN 10 Creatinine 0.84 Estim Creat Clear Calc 80.2 Estimated GFR > 60 Random Glucose 155 H Calcium 8.7 Ammonia Procalcitonin Nasal Screen MRSA (PCR) Nasal S. aureus Screen Nasal MRSA/S.aureus Interp Vancomycin Trough 18.0 HIV 1&2 Ab/P24 Ag 4thGn 04/06/20 04/06/20 04/06/20 05:30 05:30 05:30 PT INR APTT VBG pH 7.41 VBG pCO2 65 VBG pO2 59 VBG HCO3 42 VBG O2 Saturation 88.0 VBG Base Excess 15.6 Sodium Potassium Chloride Carbon Dioxide Anion Gap BUN Creatinine Estim Creat Clear Calc Estimated GFR Random Glucose Calcium Ammonia 54 Procalcitonin 0.05 Nasal Screen MRSA (PCR) Nasal S. aureus Screen Nasal MRSA/S.aureus Interp Vancomycin Trough HIV 1&2 Ab/P24 Ag 4thGn Microbiology Microbiology Results: Microbiology 04/03/20 14:06 Urine [place] Urine Culture - Final Alena albicans Enterococcus faecium 04/03/20 13:21 Blood - Venous Blood Culture - Preliminary No growth after 48 hours. 04/03/20 13:21 Blood - Venous Blood Culture - Preliminary No growth after 48 hours. 03/29/20 14:18 Blood - Venous Blood Culture - Final No growth after 5 days. 03/29/20 14:19 Blood - Venous Blood Culture - Final No growth after 5 days. Physical Exam Vital Signs: Vital Signs: Last Vital Signs Temp 98.2 F 04/06/20 11:55 Pulse 91 04/06/20 11:55 Resp 22 H 04/06/20 11:55 BP 112/49 L 04/06/20 08:00 Pulse Ox 93 04/06/20 11:55 Body Mass Index 35.8 Const: General: cooperative HENMT: Head: Yes normal to inspection Mouth: Normal oral and palatal mucosa present Eyes: General: appearance normal, both eyes and all related structures Resp: Effort & Inspection: normal respiratory effort Cardio: Rate: regular rate Rhythm: regular rhythm GI: Inspection: Yes normal to inspection Skin: General skin exam: no rashes or lesions noted Assessment and Plan Assessment and plan (1) Pneumonia: Problem details: There is concern over aspiration/atypical organisms She is taking po Urine likely colonized as no symptoms Status: Acute Assessment and Plan: Would stop Merepenem and Vancomycin Would give po Doxycycline for 7 d cover atypical (2) Acute liver failure: Status: Acute Time Spent With Patient Time: Total time spent is greater than 50% in coordination of care (as documented) at patient's floor/unit and/or counseling patient: Time with patient: 15 - 24 minutes
--- NOTE | 2020-04-06 15:15 | PM.CCPN ---
Subjective Subjective Date of Service: 04/06/20 Interval History: 55-year-old female with end-stage hepatic failure status post TIPS procedure for portal hypertension and bleeding with 1 of a number of episodes of hepatic encephalopathy and in addition also a heroin addict and presented with heroin addiction and because of depressed mental status was intubated currently extubated with resolution of the elevated ammonia level and gradual temple now of cognitive function today she is completely appropriate and conversational and metabolically restored Physical Exam Vital Signs: Vital Signs: Last Vital Signs Temp 98.2 F 04/06/20 11:55 Pulse 91 04/06/20 11:55 Resp 22 H 04/06/20 11:55 BP 112/49 L 04/06/20 08:00 Pulse Ox 93 04/06/20 11:55 Body Mass Index 35.8 Const: Other: Awake alert and oriented and nonfocal neurologically Cardiac exam with normal S1 and normal S2 and no neck vein distension and good bilateral carotid upstrokes Chest still has scattered bilateral rales Abdomen benign nondistended with good bowel sounds nontender Skin intact with no edema no acrocyanosis Objective Data Labs CBC & Chem 7: 04/05/20 05:20 04/06/20 05:30 Labs: Laboratory Results - last 24 hr 04/05/20 04/05/20 04/05/20 16:49 16:49 16:56 PT INR APTT VBG pH VBG pCO2 VBG pO2 VBG HCO3 VBG O2 Saturation VBG Base Excess Sodium Potassium Chloride Carbon Dioxide Anion Gap BUN Creatinine Estim Creat Clear Calc Estimated GFR Random Glucose Calcium Ammonia Procalcitonin 0.06 Nasal Screen MRSA (PCR) NEGATIVE Nasal S. aureus Screen NEGATIVE Nasal MRSA/S.aureus Interp SEE NOTE Vancomycin Trough HIV 1&2 Ab/P24 Ag 4thGn Nonreactive 04/06/20 04/06/20 04/06/20 00:09 05:30 05:30 PT 22.3 H INR 1.9 H APTT 41.2 H VBG pH VBG pCO2 VBG pO2 VBG HCO3 VBG O2 Saturation VBG Base Excess Sodium 139 Potassium 4.1 Chloride 102 Carbon Dioxide 30 H Anion Gap 11 L BUN 10 Creatinine 0.84 Estim Creat Clear Calc 80.2 Estimated GFR > 60 Random Glucose 155 H Calcium 8.7 Ammonia Procalcitonin Nasal Screen MRSA (PCR) Nasal S. aureus Screen Nasal MRSA/S.aureus Interp Vancomycin Trough 18.0 HIV 1&2 Ab/P24 Ag 4thGn 04/06/20 04/06/20 04/06/20 05:30 05:30 05:30 PT INR APTT VBG pH 7.41 VBG pCO2 65 VBG pO2 59 VBG HCO3 42 VBG O2 Saturation 88.0 VBG Base Excess 15.6 Sodium Potassium Chloride Carbon Dioxide Anion Gap BUN Creatinine Estim Creat Clear Calc Estimated GFR Random Glucose Calcium Ammonia 54 Procalcitonin 0.05 Nasal Screen MRSA (PCR) Nasal S. aureus Screen Nasal MRSA/S.aureus Interp Vancomycin Trough HIV 1&2 Ab/P24 Ag 4thGn Microbiology Microbiology Results: Microbiology 04/03/20 14:06 Urine [place] Urine Culture - Final Alena albicans Enterococcus faecium 04/03/20 13:21 Blood - Venous Blood Culture - Preliminary No growth after 48 hours. 04/03/20 13:21 Blood - Venous Blood Culture - Preliminary No growth after 48 hours. 03/29/20 14:18 Blood - Venous Blood Culture - Final No growth after 5 days. 03/29/20 14:19 Blood - Venous Blood Culture - Final No growth after 5 days. Progress Note: A&P Assessment and plan (1) NELSY (acute kidney injury): Problem details: REsolving Monitor I/Os Status: Acute (2) Acute liver failure: Status: Acute (3) Acute hyponatremia: Problem details: In a setting of Liver failure Na gradually corrected Restrict hypotonic fluids Status: Acute (4) Acute hepatic encephalopathy: Status: Acute (5) Heroin abuse: Status: Acute (6) Pneumonia: Problem details: There is concern over aspiration/atypical organisms She is taking po Urine likely colonized as no symptoms Status: Acute (7) Chronic liver failure: Status: Acute (8) Advanced hepatic cirrhosis: Status: Acute (9) Anemia: Status: Acute (10) Lactic acid acidosis: Status: Acute Assessment and Plan: So hepatic encephalopathy has resolved and patient is metabolically restored at this 0.8 it is a matter of following progress of pneumonia and currently covering for diverse possibilities such as transfusion related acute lung injury versus hypersensitivity versus atypical pneumonia verses nosocomial pneumonia Time Spent With Patient Time: Total time spent is greater than 50% in coordination of care (as documented) at patient's floor/unit and/or counseling patient: Total time spent with greater than 50% in coordination of care (as documented) at patient's floor/unit and/or counseling patient:: 35
[2020-04-06] MEDS: risperiDONE 0.5 MG TABLET PO (21:00)
[2020-04-06] MEDS: Baclofen 10 MG TABLET PO (21:00)
--- NOTE | 2020-04-06 21:33 | PC.NURSE ---
TLC TO R SUBCLAVIAN REMOVED. PERIPHERAL IV INSERTED, 20G TO R WRIST. NO IMMEDIATE COMPLICATIONS. SpO2 92% RA, HR 80s. HOB LOWERED TOLERATED. PRESSURE HELD X5 MIN. OCCLUSIVE DRESSING APPLIED. CATHETER TIP INTACT.
[2020-04-06] MEDS: Lactulose 20 GM/30 ML SOLUTION 30 GM PO (23:09)
--- NOTE | 2020-04-07 | XR_ITS ---
EXAMINATION: XR CHEST CLINICAL INFORMATION: Pneumonia, follow-up. COMPARISON: CT chest 04/04/2020; chest radiographs 04/01/2020, 03/31/2020, 03/30/2020 TECHNIQUE: Portable upright AP view of the chest was obtained. FINDINGS: Right subclavian central line and feeding tube have been removed since prior chest radiograph. Micra pacemaker again noted overlying the inferior cardiac silhouette. There are diffuse bilateral coarsening bronchovascular markings and scattered bronchovascular groundglass opacities similar to prior study 04/01/2020. There is no interval lobar or segmental airspace consolidation or effusion. The heart is within normal size and the hilar and mediastinal contours and bony structures are stable. XR/XR chest 1V IMPRESSION: Diffuse bilateral groundglass opacities similar to prior exam 04/01/2020.
[2020-04-07 04:00] VITALS: BP 127/79; PULSE 95; RESP 22; O2SAT 92
[2020-04-07] MEDS: Omeprazole 20 MG CAPSULE.DR PO (05:16)
[2020-04-07] MEDS: oxyCODONE HCl Immed Release 5 MG TABLET PO ×3 (05:16→18:20)
[2020-04-07 05:33] LABS: Basophils Percent Auto 0.1 % (0-2); Eosinophils Percent Auto 0.1 % (0-4); Hemoglobin 8.9 g/dl (12.0-16.0); Imm Gran Abs Auto 0.15 X10*3/uL (0.00-0.03); Imm Gran Pct Auto 1.1 % (0.0-0.4); Lymphocytes Absolute Auto 0.5 X10*3/uL (1.2-4.9); Lymphocytes Percent Auto 3.6 % (20-40); MANUAL DIFF FLAG SCAN; Mean Corpuscular HGB Conc 31.8 g/dl (31.0-35.0); Mean Corpuscular Hemoglobin 33.1 pg (27.0-33.0); Mean Corpuscular Volume 104.1 fL (80-98); Mean Platelet Volume 10.9 fL (9.4-12.3); Monocytes Absolute Auto 0.8 X10*3/uL (0.1-1.2); Monocytes Percent Auto 5.9 % (2-11); Neutrophils Absolute Auto 12.3 X10*3/uL (2.0-8.3); Neutrophils Percent Auto 89.2 % (45-73); Red Blood Count 2.69 X10*6/uL (4.20-5.50); Red Cell Distribution Width 23.2 % (11.0-16.0); SCAN SMEAR FLAG 1; White Blood Count 13.8 X10*3/uL (4.8-10.8)
[2020-04-07 05:38] LABS: Platelet Count 55 X10*3/uL (160-400)
[2020-04-07 05:39] LABS: Prothrombin Time 23.9 SEC (10.8-13.0)
[2020-04-07 05:40] LABS: Base Excess VBG 11.2 mmol/L; HCO3 VBG 36 mmol/L; PCO2 VBG 55 mmHg; PO2 VBG 59 mmHg; pH VBG 7.42 (7.32-7.43)
[2020-04-07 05:42] LABS: Partial Thromboplastin Time 45.2 SEC (24.1-38.0)
[2020-04-07 05:50] LABS: SLIDE REVIEW VERIFIED
[2020-04-07 05:53] LABS: Ammonia 39 umol/L (13-55)
[2020-04-07 06:00] VITALS: BMI 35.7
[2020-04-07 06:03] LABS: Anion Gap 11 (12-20); Blood Urea Nitrogen 9 mg/dL (9-16); Calcium 8.9 mg/dL (8.4-10.2); Carbon Dioxide 28 mmol/L (22-29); Chloride 102 mmol/L (96-108); Creatinine Clr Calc Pharmacy 83.1; Estimated Glomerular Filt Rate > 60; Glucose Random 167 mg/dL (60-115); Magnesium 1.6 mg/dL (1.6-2.6); Phosphorus 2.8 mg/dL (2.7-4.5); Potassium 4.1 mmol/l (3.3-5.1); Sodium 137 mmol/L (135-145)
[2020-04-07] MEDS: Magnesium Sulfate/D5W 1 GM/100 ML PIGGYBACK IV (07:34)
[2020-04-07] MEDS: Lactulose 20 GM/30 ML SOLUTION PO ×3 (07:34→19:55)
[2020-04-07] MEDS: Pyridoxine HCl (Vitamin B6) 50 MG TABLET PO (07:35)
[2020-04-07] MEDS: Folic Acid 1 MG TABLET PO (07:35)
[2020-04-07] MEDS: Thiamine HCL 100 MG TABLET PO (07:35)
[2020-04-07] MEDS: dexAMETHasone sod phosphate 4 MG/ML VIAL IVPUSH (07:35)
[2020-04-07] MEDS: 0.9 % Sodium Chloride Flush 3 ML SYRINGE IVFLUSH ×3 (07:36→23:02)
[2020-04-07 07:51] VITALS: BP 131/66; PULSE 82; RESP 16; TEMP 36.6; O2SAT 95
[2020-04-07] MEDS: rifAXIMin 550 MG TABLET PO ×2 (08:01→19:54)
--- NOTE | 2020-04-07 08:10 | PM.CCPN ---
Subjective Subjective Date of Service: 04/07/20 Interval History: 55-year-old female with end-stage hepatic failure status post TIPS procedure for portal system decompression due to variceal bleeding and therefore always prone to repeated episodes of hepatic encephalopathy with elevated ammonia level which is what she had at this time and in addition to which due to lost mental status she was briefly intubated successfully extubated and had a contributing issue with acute hypercarbic respiratory failure and several days ago repeat chest x-ray looked worse with increasing infiltrates so CT scan obtained which showed extensive but bilateral ground-glass infiltrates with areas of consolidation but mostly sparing the dependent areas of lower lobes having the appearance of his but either viral or atypical or hypersensitivity base pneumonia possibly even transfusion related acute lung injury because she had 2 units of red cells for acute worsening of her chronic anemia with hemoglobin initially 6.6 now currently stable and because of her hepatic insufficiency she is chronically anemic as well as thrombocytopenic Currently encephalopathy completely resolved she is appropriate neurologically intact eating pCO2 is are in the 50s pretty close to her chronic level and she is completely compensated there as well ammonia level has fallen into the high 30s and she is on right fax a min and lactulose for that also doing well from that standpoint and this pneumonia was initially covered by meropenem and vancomycin but all cultures being negative and remaining afebrile both were stopped she remains on doxycycline for atypical infection and bear in mind 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 as well as Alena species but believed to be colonization Physical Exam Vital Signs: Vital Signs: Last Vital Signs Temp 97.9 F 04/07/20 07:51 Pulse 82 04/07/20 07:51 Resp 16 04/07/20 07:51 BP 131/66 04/07/20 07:51 Pulse Ox 95 04/07/20 07:51 Body Mass Index 35.7 Const: Other: Awake alert and neurologically intact Cardiac with no neck vein distension and good bilateral carotid upstrokes and no gallops Abdomen benign nondistended good bowel sounds Chest with scattered bilateral rales Skin intact no wounds no acrocyanosis Objective Data Labs CBC & Chem 7: 04/07/20 05:17 04/07/20 05:17 Labs: Laboratory Results - last 24 hr 04/05/20 04/05/20 04/07/20 16:49 16:56 05:17 WBC 13.8 H RBC 2.69 L Hgb 8.9 L Hct 28.0 L MCV 104.1 H MCH 33.1 H MCHC 31.8 RDW 23.2 H Plt Count 55 L MPV 10.9 Immature Gran % (Auto) 1.1 H Neut % (Auto) 89.2 H Lymph % (Auto) 3.6 L [place] % (Auto) 5.9 Eos % (Auto) 0.1 Baso % (Auto) 0.1 Lymph # (Auto) 0.5 L [place] # (Auto) 0.8 Eos # (Auto) 0.0 Baso # (Auto) 0.0 Abs Immat Gran (auto) 0.15 H Absolute Neuts (auto) 12.3 H Absolute Nucleated RBC 0.000 Nucleated RBC % (auto) 0.0 Smear Tech's Comments VERIFIED PT INR APTT VBG pH VBG pCO2 VBG pO2 VBG HCO3 VBG O2 Saturation VBG Base Excess Sodium Potassium Chloride Carbon Dioxide Anion Gap BUN Creatinine Estim Creat Clear Calc Estimated GFR Random Glucose Calcium Phosphorus Magnesium Ammonia Nasal Screen MRSA (PCR) NEGATIVE Nasal S. aureus Screen NEGATIVE Nasal MRSA/S.aureus Interp SEE NOTE HIV 1&2 Ab/P24 Ag 4thGn Nonreactive 04/07/20 04/07/20 04/07/20 05:17 05:17 05:17 WBC RBC Hgb Hct MCV MCH MCHC RDW Plt Count MPV Immature Gran % (Auto) Neut % (Auto) Lymph % (Auto) [place] % (Auto) Eos % (Auto) Baso % (Auto) Lymph # (Auto) [place] # (Auto) Eos # (Auto) Baso # (Auto) Abs Immat Gran (auto) Absolute Neuts (auto) Absolute Nucleated RBC Nucleated RBC % (auto) Smear Tech's Comments PT 23.9 H INR 2.0 H APTT 45.2 H VBG pH VBG pCO2 VBG pO2 VBG HCO3 VBG O2 Saturation VBG Base Excess Sodium 137 Potassium 4.1 Chloride 102 Carbon Dioxide 28 Anion Gap 11 L BUN 9 Creatinine 0.81 Estim Creat Clear Calc 83.1 Estimated GFR > 60 Random Glucose 167 H Calcium 8.9 Phosphorus 2.8 Magnesium 1.6 Ammonia 39 Nasal Screen MRSA (PCR) Nasal S. aureus Screen Nasal MRSA/S.aureus Interp HIV 1&2 Ab/P24 Ag 4thGn 04/07/20 05:17 WBC RBC Hgb Hct MCV MCH MCHC RDW Plt Count MPV Immature Gran % (Auto) Neut % (Auto) Lymph % (Auto) [place] % (Auto) Eos % (Auto) Baso % (Auto) Lymph # (Auto) [place] # (Auto) Eos # (Auto) Baso # (Auto) Abs Immat Gran (auto) Absolute Neuts (auto) Absolute Nucleated RBC Nucleated RBC % (auto) Smear Tech's Comments PT INR APTT VBG pH 7.42 VBG pCO2 55 VBG pO2 59 VBG HCO3 36 VBG O2 Saturation 89.0 VBG Base Excess 11.2 Sodium Potassium Chloride Carbon Dioxide Anion Gap BUN Creatinine Estim Creat Clear Calc Estimated GFR Random Glucose Calcium Phosphorus Magnesium Ammonia Nasal Screen MRSA (PCR) Nasal S. aureus Screen Nasal MRSA/S.aureus Interp HIV 1&2 Ab/P24 Ag 4thGn Microbiology Microbiology Results: Microbiology 04/03/20 14:06 Urine [place] Urine Culture - Final Alena albicans Enterococcus faecium 04/03/20 13:21 Blood - Venous Blood Culture - Preliminary No growth after 48 hours. 04/03/20 13:21 Blood - Venous Blood Culture - Preliminary No growth after 48 hours. 03/29/20 14:18 Blood - Venous Blood Culture - Final No growth after 5 days. 03/29/20 14:19 Blood - Venous Blood Culture - Final No growth after 5 days. Progress Note: A&P Assessment and plan (1) NELSY (acute kidney injury): Problem details: REsolving Monitor I/Os Status: Acute (2) Acute liver failure: Status: Acute (3) Acute hyponatremia: Problem details: In a setting of Liver failure Na gradually corrected Restrict hypotonic fluids Status: Acute (4) Acute hepatic encephalopathy: Status: Acute (5) Heroin abuse: Status: Acute (6) Pneumonia: Problem details: There is concern over aspiration/atypical organisms She is taking po Urine likely colonized as no symptoms Status: Acute (7) Chronic liver failure: Status: Acute (8) Advanced hepatic cirrhosis: Status: Acute (9) Anemia: Status: Acute (10) Lactic acid acidosis: Status: Acute Assessment and Plan: So no other culture positivity no fever spike CBC has been stable remains only on doxycycline and Decadron in case of hypersensitivity and needs a repeat CT scan possibly this weekend Saturday or Saturday and if resolving would leave therapy as is Time Spent With Patient Time: Total time spent is greater than 50% in coordination of care (as documented) at patient's floor/unit and/or counseling patient: Total time spent with greater than 50% in coordination of care (as documented) at patient's floor/unit and/or counseling patient:: 30
--- NOTE | 2020-04-07 10:08 | MHC.CM.PN ---
Met with pt to discuss d/c planning Pt was A&O x 4: pleasant and anxious to return to home. Pt states she resides with her boyfriend in an apt. She uses a wheeled walker and has VNA services through [facility], 20 hrs/week of [facility] [employer] care and [facility] community case management. [facility] also provides transportation to medical appointments and her [employer] assists with other needs. Pt very clearly requested to return to home with existing services: briefly discussed safety, substance relapse/triggers - pt continued to express wish to return to home. Pt is expected to transfer to [place] later today in anticipation of d/c to home 04/08 or so. Re-referred to [facility] who state they no longer follow her. Will try [facility]
[2020-04-07 10:51] VITALS: BP 109/57; PULSE 88; RESP 19; TEMP 36.4; O2SAT 95
[2020-04-07 15:54] VITALS: BP 124/68; PULSE 81; RESP 16; TEMP 36.2; O2SAT 95
--- NOTE | 2020-04-07 18:39 | PM.EVENT ---
Event Note Date of Service: 04/08/20 Event Note: Patient transferred from ICU chart reviewed Hepatic encephalopathy Patient presented with encephalopathy receive lactulose via NG tube, currently on rifaximin and lactulose as ammonia level has normalized, Pneumonia currently on doxycycline, question hypersensitivity pneumonitis on Decadron Positive UA likely contamination Hyponatremia improved was placed on fluid restriction Active substance abuse relapsed on heroin treated with Narcan in the emergency room Hypercarbic respiratory failure is status post intubation
[2020-04-07] MEDS: Baclofen 10 MG TABLET PO (19:54)
[2020-04-07] MEDS: risperiDONE 0.5 MG TABLET PO (19:54)
[2020-04-07] MEDS: traMADoL HCL 50 MG TABLET 25 MG PO (19:55)
[2020-04-07 20:00] VITALS: BP 103/60; PULSE 81; RESP 18; TEMP 36.2; O2SAT 96
[2020-04-07] MEDS: Calcium Carbonate 750 MG TAB.CHEW PO (21:40)
[2020-04-08] VITALS (7 sets, daily range): BP systolic 120–143; BP diastolic 62–72; PULSE 63–83; RESP 17–19; TEMP 36.4–37; O2SAT 94–98
[2020-04-08] MEDS: oxyCODONE HCl Immed Release 5 MG TABLET PO ×3 (00:10→19:42)
--- NOTE | 2020-04-08 01:37 | MHC.PIE ---
p; pt c/o anxiety i; dr clacny notified; new order atarax 25 mg po q8 prn e; will cont to monitor
[2020-04-08] MEDS: hydrOXYzine HCL 25 MG TABLET PO ×2 (01:52→13:23)
[2020-04-08] MEDS: Omeprazole 20 MG CAPSULE.DR PO (06:07)
[2020-04-08 07:17] LABS: Basophils Percent Auto 0.2 % (0-2); Eosinophils Percent Auto 0.3 % (0-4); Hematocrit 27.2 % (37-47); Imm Gran Abs Auto 0.14 X10*3/uL (0.00-0.03); Imm Gran Pct Auto 1.2 % (0.0-0.4); Lymphocytes Absolute Auto 0.7 X10*3/uL (1.2-4.9); Lymphocytes Percent Auto 5.6 % (20-40); MANUAL DIFF FLAG SCAN; Mean Corpuscular HGB Conc 33.1 g/dl (31.0-35.0); Mean Corpuscular Hemoglobin 33.5 pg (27.0-33.0); Mean Corpuscular Volume 101.1 fL (80-98); Mean Platelet Volume 11.1 fL (9.4-12.3); Monocytes Absolute Auto 0.8 X10*3/uL (0.1-1.2); Neutrophils Percent Auto 85.7 % (45-73); Red Blood Count 2.69 X10*6/uL (4.20-5.50); Red Cell Distribution Width 23.3 % (11.0-16.0); SCAN SMEAR FLAG 1; White Blood Count 11.6 X10*3/uL (4.8-10.8)
[2020-04-08 07:24] LABS: Platelet Count 53 X10*3/uL (160-400)
[2020-04-08 07:26] LABS: INTERNATIONAL NORM RATIO 2.1 (0.9-1.1); Prothrombin Time 25.7 SEC (10.8-13.0)
[2020-04-08 07:29] LABS: Partial Thromboplastin Time 41.9 SEC (24.1-38.0)
[2020-04-08 07:38] LABS: Anion Gap 8 (12-20); Blood Urea Nitrogen 9 mg/dL (9-16); Calcium 8.5 mg/dL (8.4-10.2); Carbon Dioxide 31 mmol/L (22-29); Chloride 99 mmol/L (96-108); Creatinine Clr Calc Pharmacy 105.1; Estimated Glomerular Filt Rate > 60; Glucose Random 101 mg/dL (60-115); Magnesium 1.8 mg/dL (1.6-2.6); Phosphorus 3.4 mg/dL (2.7-4.5); Potassium 4.2 mmol/l (3.3-5.1); Sodium 134 mmol/L (135-145)
[2020-04-08 08:42] LABS: SLIDE REVIEW VERIFIED
[2020-04-08] MEDS: Thiamine HCL 100 MG TABLET PO (10:28)
[2020-04-08] MEDS: Pyridoxine HCl (Vitamin B6) 50 MG TABLET PO (10:28)
[2020-04-08] MEDS: Folic Acid 1 MG TABLET PO (10:28)
[2020-04-08] MEDS: rifAXIMin 550 MG TABLET PO ×2 (10:28→21:51)
[2020-04-08] MEDS: Lactulose 20 GM/30 ML SOLUTION PO ×3 (10:29→21:52)
[2020-04-08] MEDS: 0.9 % Sodium Chloride Flush 3 ML SYRINGE IVFLUSH ×3 (10:29→21:52)
[2020-04-08] MEDS: dexAMETHasone sod phosphate 4 MG/ML VIAL IVPUSH (10:29)
[2020-04-08] MEDS: Calcium Carbonate 750 MG TAB.CHEW PO (13:23)
[2020-04-08 14:01] LABS: HCO3 VBG 39 mmol/L; PCO2 VBG 52 mmHg; PO2 VBG 46 mmHg; pH VBG 7.47 (7.32-7.43)
[2020-04-08 14:02] LABS: Base Excess VBG 13.9 mmol/L
--- NOTE | 2020-04-08 16:07 | P.PNIM_ITS ---
Subjective Subjective Date of Service: 04/09/20 Interval History: Patient wants to go home, denies acute complaints of abdominal pain cough shortness of breath has been in bed since admission generally feels weak, denies nausea vomiting. Review of Systems General no headache, no dizziness no fever chills. CVS no chest pain, no palpitation. Respiratory no cough, no sputum production no respiratory distress. Gastrointestinal no nausea no vomiting, no abdominal pain, moving bowels daily Physical Exam Vital Signs: Vital Signs: Last Vital Signs Temp 98.1 F 04/08/20 16:00 Pulse 74 04/08/20 16:00 Resp 19 04/08/20 16:00 BP 137/63 04/08/20 16:00 Pulse Ox 98 04/08/20 16:00 Body Mass Index 35.7 General resting comfortably in no acute distress. Neck supple no JVD. CVS regular rate rhythm, Respiratory lungs clear to auscultation, no respiratory distress Gastrointestinal abdomen obese, soft, nontender, bowel sounds audible, no guarding , no rigidity. Extremities no edema. Neuro nonfocal patient moving all 4 extremity, speech clear. Skin no rash Objective Data Current Medications Generic Name Dose Route Start Last Admin Trade Name Freq PRN Reason Stop Dose Admin Albuterol Sulfate 2.5 mg 04/08/20 10:33 Albuterol Sulfate (0.083%) 2.5 Mg/3 Ml Vial.Neb INHALE Q2H PRN wheezing Baclofen 10 mg 04/02/20 21:00 04/07/20 19:54 Baclofen 10 Mg Tablet PO 10 mg BEDTIME LILLI Administration Calcium Carbonate 750 mg 04/07/20 21:22 04/08/20 13:23 Calcium Carbonate 750 Mg Tab.Chew PO 750 mg Q4H PRN Administration heart burn Dexamethasone Sodium Phosphate 4 mg 04/07/20 09:00 04/08/20 10:29 Dexamethasone Sod Phosphate 4 Mg/Ml Vial IVPUSH 4 mg DAILY LILLI Administration Doxycycline Hyclate 100 mg 04/07/20 00:00 04/08/20 10:28 Doxycycline Hyclate 100 Mg Tablet PO 100 mg Q12H LILLI Administration Folic Acid 1 mg 04/02/20 12:00 04/08/20 10:28 Folic Acid 1 Mg Tablet PO 1 mg DAILY LILLI Administration Hydroxyzine HCl 25 mg 04/08/20 01:33 04/08/20 13:23 Hydroxyzine Hcl 25 Mg Tablet PO 25 mg Q8H PRN Administration anxiety/restlessness Lactulose 20 gm 04/07/20 09:00 04/08/20 14:29 Lactulose 20 Gm/30 Ml Solution PO 20 gm TID LILLI Administration Omeprazole 20 mg 04/05/20 06:30 04/08/20 06:07 Omeprazole 20 Mg Capsule.Dr PO 20 mg DAILY@0630 LILLI Administration Oxycodone HCl 5 mg 04/05/20 07:39 04/08/20 06:07 Oxycodone Hcl Immed Release 5 Mg Tablet PO 5 mg Q6H PRN Administration Pain, Moderate (Pain Scale 4-6 Pyridoxine HCl 50 mg 04/02/20 12:00 04/08/20 10:28 Pyridoxine Hcl (Vitamin B6) 50 Mg Tablet PO 50 mg DAILY [facility] Administration Rifaximin 550 mg 04/02/20 12:00 04/08/20 10:28 Rifaximin 550 Mg Tablet PO 550 mg BID LILLI Administration Risperidone 0.5 mg 04/04/20 21:00 04/07/20 19:54 Risperidone 0.5 Mg Tablet PO 0.5 mg BEDTIME [facility] Administration Sodium Biphosphate/Sodium Phosphate 133 ml 04/06/20 06:04 04/06/20 07:42 Sodium Phosphate,[place]-Dibasic 133 Ml Enema RI 133 ml ONCE PRN Administration Constipation Sodium Chloride 3 ml 03/31/20 16:00 04/08/20 10:29 0.9 % Sodium Chloride Flush 3 Ml Syringe IVFLUSH 3 ml QSHIFT [facility] Administration Thiamine HCl 100 mg 04/02/20 12:00 04/08/20 10:28 Thiamine Hcl 100 Mg Tablet PO 100 mg DAILY [facility] Administration Tramadol HCl 25 mg 04/04/20 15:12 04/07/20 19:55 Tramadol Hcl 50 Mg Tablet PO 25 mg Q4H PRN Administration Pain, Moderate (Pain Scale 4-6 Labs CBC & Chem 7: 04/09/20 06:25 04/09/20 06:25 Microbiology Microbiology Results: Microbiology 04/03/20 13:21 Blood - Venous Blood Culture - Final No growth after 5 days. 04/03/20 13:21 Blood - Venous Blood Culture - Final No growth after 5 days. 04/03/20 14:06 Urine [place] Urine Culture - Final Alena albicans Enterococcus faecium 03/29/20 14:18 Blood - Venous Blood Culture - Final No growth after 5 days. 03/29/20 14:19 Blood - Venous Blood Culture - Final No growth after 5 days. Assessment and Plan (1) Acute hepatic encephalopathy: Status: Acute (2) Heroin abuse: Status: Acute (3) Pneumonia: Problem details: There is concern over aspiration/atypical organisms She is taking po Urine likely colonized as no symptoms Status: Acute (4) Chronic liver failure: Status: Acute (5) Advanced hepatic cirrhosis: Status: Acute (6) Anemia: Status: Acute (7) Acute hyponatremia: Problem details: In a setting of Liver failure Na gradually corrected Restrict hypotonic fluids Status: Acute (8) NELSY (acute kidney injury): Status: Acute Assessment and Plan: Hepatic encephalopathy with alcohol liver cirrhosis Resolved, continue treatment with lactulose and rifaximin, patient awake alert ammonia level normalized , will encourage out of bed to chair and ambulation,status post tips procedure with greater likelihood of encephalopathy, recommend to have outpatient follow-up with Gastroenterology. Patient on risperidone, Dilantin likely contributing to sedation. Agitation shaking and obtundation required intubation on March 30 patient extubated on April 01 due to agitation she required restraint, post extubation patient noted to have stridor therefore treated with Decadron currently patient is comfortable no respiratory distress, symptoms were likely related to heroin use. Pneumonia currently on doxycycline day 4, to cover atypicals for total 7 day,for concern for hypersensitivity pneumonitis is on Decadron day 7, initially treated with meropenem and vancomycin. CT chest showed extensive multilobar infiltrates no pleural effusion, cirrhosis with hepatomegaly no ascites. Will repeat CT chest at a.m. Positive UA likely contamination as per ID no antibiotics required Acute Hyponatremia likely related to liver failure, patient treated with fluid restriction sodium now improved. Active substance abuse relapsed on heroin treated with Narcan in the emergency room, will consult care team Acute kidney injury resolved. COPD no acute exacerbation noted. Anemia/thrombocytopenia is stable platelet and hematocrit. Leg syndrome will resume Dilantin. Disposition home in next 24 hours.
[2020-04-08 16:24] LABS: Glucose, Whole Blood 144 mg/dL (60-115)
[2020-04-08 20:34] LABS: Glucose, Whole Blood 128 mg/dL (60-115)
[2020-04-08] MEDS: risperiDONE 0.5 MG TABLET PO (21:51)
[2020-04-08] MEDS: Baclofen 10 MG TABLET PO (21:52)
--- NOTE | 2020-04-09 | CT_ITS ---
EXAMINATION: CT CHEST WITHOUT CONTRAST CLINICAL INFORMATION: Follow-up groundglass opacities COMPARISON: Chest x-ray 04/07/[address] chest, abdomen and pelvis 04/04/2020 TECHNIQUE: Multidetector volumetric CT imaging of the chest was done. Axial MIP volume rendering provided. Sagittal and coronal reformatted images were obtained. This CT examination was performed using dose optimization techniques as appropriate, variously including the following: *Automated exposure control *Adjustment of mA and/or kV according to patient size (this includes techniques or standardized protocols for targeted exams where dose is matched to indication/reason for exam; i.e. extremities or head) *Use of iterative reconstruction technique DLP: 337 mGy-cm FINDINGS: The heart is normal in size. There is no pericardial effusion. A few mildly prominent but not pathologically enlarged mediastinal lymph nodes appear similar on today's noncontrast imaging. There appears to be interval development of skin thickening of the right breast with interval increase in underlying fat stranding. Lymph nodes of the right axilla also demonstrate interval increase in size. Central airways are patent. Lungs are adequately aerated. Persistent but much improved patchy bilateral airspace disease compared with CT imaging from 5 days ago. There is no pleural effusion. No pneumothorax. No large pulmonary mass identified, however, pulmonary nodules would be hard to exclude given the extent of diffuse airspace disease. Visualized portions of the upper abdomen again demonstrate a cirrhotic appearing liver with TIPS stent. Similar metallic clip noted within the stomach. Mild diffuse degenerative changes of the spine. Interval worsening in diffuse subcutaneous anasarca. CT/CT chest wo con IMPRESSION: 1. Appreciable interval improvement in diffuse patchy bilateral airspace disease. 2. There appears to be interval development of skin thickening of the right breast with interval increase in underlying fat stranding. Lymph nodes of the right axilla also demonstrate interval increase in size. Clinical correlation recommended.
[2020-04-09] MEDS: oxyCODONE HCl Immed Release 5 MG TABLET PO ×2 (01:44→08:11)
[2020-04-09 03:55] VITALS: BP 129/64; PULSE 82; RESP 18; TEMP 36.6; O2SAT 98
[2020-04-09] MEDS: Omeprazole 20 MG CAPSULE.DR PO (05:33)
[2020-04-09 06:00] VITALS: BMI 36.1
[2020-04-09 06:40] LABS: Base Excess VBG 9.3 mmol/L; HCO3 VBG 33 mmol/L; PCO2 VBG 43 mmHg; PO2 VBG 49 mmHg; pH VBG 7.49 (7.32-7.43)
[2020-04-09 06:44] LABS: Basophils Percent Auto 0.1 % (0-2); Eosinophils Percent Auto 0.2 % (0-4); PLT CLUMP 1; SCAN SMEAR FLAG 1
[2020-04-09 06:46] LABS: Hematocrit 29.2 % (37-47); Hemoglobin 9.4 g/dl (12.0-16.0); Imm Gran Abs Auto 0.18 X10*3/uL (0.00-0.03); Imm Gran Pct Auto 1.6 % (0.0-0.4); Lymphocytes Absolute Auto 0.7 X10*3/uL (1.2-4.9); Lymphocytes Percent Auto 6.5 % (20-40); MANUAL DIFF FLAG NO; Mean Corpuscular HGB Conc 32.2 g/dl (31.0-35.0); Mean Corpuscular Hemoglobin 33.1 pg (27.0-33.0); Mean Corpuscular Volume 102.8 fL (80-98); Mean Platelet Volume 10.5 fL (9.4-12.3); Monocytes Absolute Auto 0.9 X10*3/uL (0.1-1.2); Monocytes Percent Auto 7.7 % (2-11); Neutrophils Absolute Auto 9.4 X10*3/uL (2.0-8.3); Neutrophils Percent Auto 83.9 % (45-73); Platelet Count 59 X10*3/uL (160-400); Red Blood Count 2.84 X10*6/uL (4.20-5.50); Red Cell Distribution Width 23.7 % (11.0-16.0); White Blood Count 11.2 X10*3/uL (4.8-10.8)
[2020-04-09 06:57] LABS: INTERNATIONAL NORM RATIO 2.2 (0.9-1.1); Prothrombin Time 26.2 SEC (10.8-13.0)
[2020-04-09 07:00] LABS: Partial Thromboplastin Time 44.1 SEC (24.1-38.0)
[2020-04-09 07:10] LABS: Anion Gap 11 (12-20); Blood Urea Nitrogen 10 mg/dL (9-16); Calcium 8.7 mg/dL (8.4-10.2); Carbon Dioxide 29 mmol/L (22-29); Chloride 99 mmol/L (96-108); Creatinine Clr Calc Pharmacy 109.1; Estimated Glomerular Filt Rate > 60; Glucose Random 125 mg/dL (60-115); Magnesium 1.8 mg/dL (1.6-2.6); Phosphorus 3.2 mg/dL (2.7-4.5); Potassium 4.5 mmol/l (3.3-5.1); Sodium 134 mmol/L (135-145)
[2020-04-09 08:00] VITALS: BP 133/64; PULSE 64; RESP 17; TEMP 36.6; O2SAT 98
[2020-04-09] MEDS: Thiamine HCL 100 MG TABLET PO (08:10)
[2020-04-09] MEDS: Pyridoxine HCl (Vitamin B6) 50 MG TABLET PO (08:11)
[2020-04-09] MEDS: Folic Acid 1 MG TABLET PO (08:11)
[2020-04-09] MEDS: Lactulose 20 GM/30 ML SOLUTION PO ×2 (08:13→15:04)
[2020-04-09] MEDS: rifAXIMin 550 MG TABLET PO (08:14)
[2020-04-09] MEDS: 0.9 % Sodium Chloride Flush 3 ML SYRINGE IVFLUSH (08:16)
[2020-04-09] MEDS: traMADoL HCL 50 MG TABLET 25 MG PO (10:32)
[2020-04-09 11:38] LABS: Glucose, Whole Blood 172 mg/dL (60-115)
[2020-04-09 11:42] VITALS: BP 144/69; PULSE 74; RESP 19; TEMP 36.6; O2SAT 100
--- NOTE | 2020-04-09 12:56 | PM.DS ---
DS: Providers Provider Date of Service: 04/09/20 Date of admission: 03/29/20 22:11 Primary care physician: Unknown Physician Consults: 04/04/20 12:12 Consult to Infectious Diseases Routine Consulting Provider: Britany Nur Reason for consultation: nosocomial pneumonia Has provider been notified: Yes DS: Diagnosis Discharge Diagnosis (1) Acute hepatic encephalopathy: Status: Acute (2) Heroin abuse: Status: Acute (3) Pneumonia: Status: Acute Problem details: There is concern over aspiration/atypical organisms She is taking po Urine likely colonized as no symptoms (4) Chronic liver failure: Status: Acute (5) Advanced hepatic cirrhosis: Status: Acute (6) Anemia: Status: Acute (7) Acute hyponatremia: Status: Acute Problem details: In a setting of Liver failure Na gradually corrected Restrict hypotonic fluids (8) NELSY (acute kidney injury): Status: Acute DS: Medications Discharge Medications Home Medications: Home Medications Medication Instructions Recorded Confirmed Xifaxan 550 mg PO BID 01/20/20 03/31/20 folic acid 1 mg PO DAILY 01/20/20 03/31/20 potassium chloride 40 meq PO DAILY 01/20/20 03/31/20 Flovent HFA 2 puff INHALATION BID 02/09/20 03/31/20 albuterol sulfate 2 puff INHALATION Q4H PRN 02/09/20 03/31/20 calcium carbonate [Antacid Ext Str 1 tab PO TID PRN 02/09/20 03/31/20 (calcium carb)] thiamine HCl (vitamin B1) 100 mg PO DAILY 02/09/20 03/31/20 baclofen 10 mg PO QPM 02/13/20 03/31/20 cetirizine 10 mg PO DAILY 02/19/20 03/31/20 gabapentin 600 mg PO TID 02/19/20 03/31/20 glycerin (adult) 1 supp GA DAILY PRN 02/19/20 03/31/20 metformin 750 mg PO BEDTIME 02/19/20 03/31/20 pyridoxine (vitamin B6) 50 mg PO DAILY 02/19/20 03/31/20 Stiolto Respimat 2 puff INHALATION DAILY 02/26/20 03/31/20 Previous Rx's Medication Instructions Recorded lactulose 30 g PO TID #240 ml 02/23/20 spironolactone 50 mg PO DAILY #30 tab 02/23/20 torsemide 20 mg PO DAILY #30 tab 02/23/20 omeprazole 20 mg PO DAILY #0 cap 04/09/20 risperidone 1 mg PO BEDTIME #0 tab 04/09/20 DS: Summary Hospital Course Hospital Course: History of presenting illness 55-year-old female alcoholic liver cirrhosis, hyponatremia, ascites, COPD who presents to the hospital with confusion. Patient is lethargic, slightly confused confused, but arousable and gives somewhat of a coherent history. She reports that she used heroin today but came into the ED because she is not feeling well. she reports that she has been confused for 1 day. She reports that she takes lactulose daily but only once a day and has about 1-2 bowel movements daily. She otherwise denies any chest pain, no shortness of breath, no nausea or vomiting, no diarrhea constipation, no urinary symptoms and no lower extremity edema. She reports not drinking or using drugs in a long time but relapsed tonight On arrival to the ED vitals are significant for temp of 98.6?, heart rate of 78, respiratory rate of 12, blood pressure of 148/61, satting 98% in room air. For WBC count of 15, hemoglobin of 8.7 (around her baseline,), sodium of 120 on 02/27),, BUN of 8, creatinine of 0.6 is Soma lactic acid of 2.3 which improved to 1.7 after fluids, total bili of 11.2, direct bili of 5.1, AST of 68, ALT of 20, alk-phos of 199, ammonia 90, BNP of 94, albumin of 2.6, UA negative for any evidence of infection, negative ethanol level chest x-ray negative for any pulmonary infection Past medical history: Alcoholic Liver cirrhosis, hyponatremia, ascites, COPD, chronic back pain Hospital course 55-year-old female patient was admitted to [facility] due to significant hyponatremia, lactic acidosis hepatic encephalopathy , in the ER patient was obtunded treated with Narcan with quick improvement in her mental status patient was admitted to medical floor treated with lactulose but during the course of 24 hours patient was noted to be agitated take confuse became obtunded therefore was intubated and transferred to ICU where patient was treated for hepatic encephalopathy with lactulose via NG tube patient was subsequently extubated on April 01 during the course of hospitalization patient noticed to have shortness of breath and hypoxia chest CT showed bilateral ground-glass opacities therefore initially treated with broad-spectrum antibiotic later placed on doxycycline for atypical pneumonia and steroids for concern of hypersensitivity pneumonitis since patient ammonia level normalized her oxygenation stabilized she was subsequently transferred to medical floor and since she remains stable she is being discharged home. Hepatic encephalopathy resolved recommend to continue rifaximin and lactulose and to have outpatient follow-up with Gastroenterology Pneumonia Abnormal CT chest with concern for infection/hypersensitivity reaction a repeat CT chest prior to discharge shows improvement of ground-glass opacity patient does not require any further antibiotics or steroid, patient finished course of doxycycline. Active substance abuse patient had a relapse on heroin treated with Narcan counseling done strongly recommend to abstain from illicit drugs. Acute kidney injury resolved Chronic anemia thrombocytopenia patient noted to have drop in hematocrit therefore treated with 2 units of packed RBC hematocrit improved. Chronic liver disease patient has been strongly advice to have close follow-up with gastroenterology Skin thickening of right breast with interval increase in underlying fat stranding interval increase in lymph nodes on right axilla, as noted on CT chest, patient noted to have mild edema of right breast wall, axilla extending towards the right lateral chest wall and right arm no palpable breast mass noted, recommend patient to have close outpatient follow-up with primary care physician for continued monitoring of right breast and swelling of surrounding area at present patient asymptomatic no evidence of acute infection or SVC syndrome,mild swelling left upper arm could be related to iv line but no evidence of infection, advised close follow-up being discharged with VNA service. Time Spent with Patient Time attestation: Total time spent providing and/or coordinating discharge services: Discharge coordination time: Greater than 30 minutes Physical Exam Vital Signs: Vital Signs: Last Vital Signs Temp 97.9 F 04/09/20 11:42 Pulse 74 04/09/20 11:42 Resp 19 04/09/20 11:42 BP 144/69 H 04/09/20 11:42 Pulse Ox 100 04/09/20 11:42 Body Mass Index 36.1 General resting in bed, no acute distress. Icteric sclera Neck supple no JVD. CVS regular rate rhythm, Respiratory lungs clear to auscultation, no respiratory distress Gastrointestinal abdomen obese, soft, nontender, bowel sounds audible, no guarding , no rigidity. Extremities bilateral trace edema Neuro nonfocal speech clear. Breast edema right breast extending towards right axilla, lateral chest wall, left upper arm,,nontender to touch, no hyperemia , no warmth. No palpable masses. DS: Data Data Completed and Pending Completed studies during hospitalization [Text1]: Procedures Transfusion of Nonautologous Red Blood Cells into Peripheral Vein, Percutaneous Approach (02/13/20) Labs on day of discharge: Laboratory Tests 03/29/20 03/29/20 03/29/20 14:10 14:18 14:18 WBC 14.2 H RBC 2.87 L Hgb 9.3 L Hct 27.3 L MCV 95.1 MCH 32.4 MCHC 34.1 RDW 18.6 H Plt Count 66 L MPV 10.9 Immature Gran % (Auto) 1.1 H Neut % (Auto) 81.5 H Lymph % (Auto) 5.8 L [place] % (Auto) 8.9 Eos % (Auto) 2.3 Baso % (Auto) 0.4 Lymph # (Auto) 0.8 L [place] # (Auto) 1.3 H Eos # (Auto) 0.3 Baso # (Auto) 0.1 Abs Immat Gran (auto) 0.16 H Absolute Neuts (auto) 11.6 H Absolute Nucleated RBC 0.000 Nucleated RBC % (auto) 0.0 Smear Tech's Comments Not Reportable ESR PT 22.0 H INR 1.8 H APTT 48.4 H D-Dimer ABG pH ABG pCO2 ABG pO2 ABG HCO3 ABG O2 Saturation ABG Base Excess VBG pH VBG pCO2 VBG pO2 VBG HCO3 VBG O2 Saturation VBG Base Excess Oxygen Given Sodium Potassium Chloride Carbon Dioxide Anion Gap BUN Creatinine Estim Creat Clear Calc Estimated GFR POC Glucose Random Glucose Osmolality Lactic Acid Lactic Acid Fup @ 2Hr Calcium Phosphorus Magnesium Total Bilirubin Direct Bilirubin AST ALT Alkaline Phosphatase Ammonia Lactate Dehydrogenase Total Creatine Kinase C-Reactive Protein B-Natriuretic Peptide Total Protein Albumin Procalcitonin Urine Color Urine Appearance Urine pH Ur Specific [place] Urine Protein Urine Glucose (UA) Urine Ketones Urine Blood Urine Nitrite Ur Leukocyte Esterase Urine RBC Urine WBC Ur Squamous Epith Cells Urine Bacteria Urine Yeast Urine Osmolality U Random Total Protein Ur Random Sodium Urine Creatinine Nasal Screen MRSA (PCR) Nasal S. aureus Screen Nasal MRSA/S.aureus Interp Vancomycin Trough Urine Opiates Screen Acetaminophen Ur Barbiturates Screen Ur Phencyclidine Scrn Ur Amphetamines Screen U Benzodiazepines Scrn Urine Cocaine Screen U Marijuana (THC) Screen Ethyl Alcohol Coronavirus (PCR) NEGATIVE COVID-19 (GIOVANI) COVID-19 Clin Com HIV 1&2 Ab/P24 Ag 4thGn Influenza Type A (PCR) NEGATIVE Influenza Type B (PCR) NEGATIVE RSV RNA Qual (PCR) NEGATIVE Blood Type Antibody Screen Crossmatch 03/29/20 03/29/20 03/29/20 14:18 14:18 14:18 WBC RBC Hgb Hct MCV MCH MCHC RDW Plt Count MPV Immature Gran % (Auto) Neut % (Auto) Lymph % (Auto) [place] % (Auto) Eos % (Auto) Baso % (Auto) Lymph # (Auto) [place] # (Auto) Eos # (Auto) Baso # (Auto) Abs Immat Gran (auto) Absolute Neuts (auto) Absolute Nucleated RBC Nucleated RBC % (auto) Smear Tech's Comments ESR PT INR APTT D-Dimer ABG pH ABG pCO2 ABG pO2 ABG HCO3 ABG O2 Saturation ABG Base Excess VBG pH VBG pCO2 VBG pO2 VBG HCO3 VBG O2 Saturation VBG Base Excess Oxygen Given Sodium 120 L* Potassium 3.6 Chloride 85 L Carbon Dioxide 26 Anion Gap 13 BUN 7 L Creatinine 0.74 Estim Creat Clear Calc 94.5 Estimated GFR > 60 POC Glucose Random Glucose 152 H Osmolality Lactic Acid 3.2 H* Lactic Acid Fup @ 2Hr Calcium 8.1 L Phosphorus Magnesium 1.8 Total Bilirubin 11.2 H Direct Bilirubin 5.1 H AST 68 H ALT 20 Alkaline Phosphatase 199 H D Ammonia Lactate Dehydrogenase Total Creatine Kinase C-Reactive Protein B-Natriuretic Peptide 94 Total Protein 6.4 L Albumin 2.6 L Procalcitonin Urine Color Urine Appearance Urine pH Ur Specific [place] Urine Protein Urine Glucose (UA) Urine Ketones Urine Blood Urine Nitrite Ur Leukocyte Esterase Urine RBC Urine WBC Ur Squamous Epith Cells Urine Bacteria Urine Yeast Urine Osmolality U Random Total Protein Ur Random Sodium Urine Creatinine Nasal Screen MRSA (PCR) Nasal S. aureus Screen Nasal MRSA/S.aureus Interp Vancomycin Trough Urine Opiates Screen Acetaminophen < 1 Ur Barbiturates Screen Ur Phencyclidine Scrn Ur Amphetamines Screen U Benzodiazepines Scrn Urine Cocaine Screen U Marijuana (THC) Screen Ethyl Alcohol Coronavirus (PCR) COVID-19 (GIOVANI) COVID-19 Clin Com HIV 1&2 Ab/P24 Ag 4thGn Influenza Type A (PCR) Influenza Type B (PCR) RSV RNA Qual (PCR) Blood Type Antibody Screen Crossmatch 03/29/20 03/29/20 03/29/20 14:18 14:19 14:19 WBC RBC Hgb Hct MCV MCH MCHC RDW Plt Count MPV Immature Gran % (Auto) Neut % (Auto) Lymph % (Auto) [place] % (Auto) Eos % (Auto) Baso % (Auto) Lymph # (Auto) [place] # (Auto) Eos # (Auto) Baso # (Auto) Abs Immat Gran (auto) Absolute Neuts (auto) Absolute Nucleated RBC Nucleated RBC % (auto) Smear Tech's Comments ESR PT INR APTT D-Dimer ABG pH ABG pCO2 ABG pO2 ABG HCO3 ABG O2 Saturation ABG Base Excess VBG pH VBG pCO2 VBG pO2 VBG HCO3 VBG O2 Saturation VBG Base Excess Oxygen Given Sodium Potassium Chloride Carbon Dioxide Anion Gap BUN Creatinine Estim Creat Clear Calc Estimated GFR POC Glucose 144 H Random Glucose Osmolality Lactic Acid Lactic Acid Fup @ 2Hr Calcium Phosphorus Magnesium Total Bilirubin Direct Bilirubin AST ALT Alkaline Phosphatase Ammonia 81 H Lactate Dehydrogenase Total Creatine Kinase C-Reactive Protein B-Natriuretic Peptide Total Protein Albumin Procalcitonin Urine Color Urine Appearance Urine pH Ur Specific [place] Urine Protein Urine Glucose (UA) Urine Ketones Urine Blood Urine Nitrite Ur Leukocyte Esterase Urine RBC Urine WBC Ur Squamous Epith Cells Urine Bacteria Urine Yeast Urine Osmolality U Random Total Protein Ur Random Sodium Urine Creatinine Nasal Screen MRSA (PCR) Nasal S. aureus Screen Nasal MRSA/S.aureus Interp Vancomycin Trough Urine Opiates Screen Acetaminophen Ur Barbiturates Screen Ur Phencyclidine Scrn Ur Amphetamines Screen U Benzodiazepines Scrn Urine Cocaine Screen U Marijuana (THC) Screen Ethyl Alcohol < 10 Coronavirus (PCR) COVID-19 (GI[facility]) COVID-19 Clin Com HIV 1&2 Ab/P24 Ag 4thGn Influenza Type A (PCR) Influenza Type B (PCR) RSV RNA Qual (PCR) Blood Type Antibody Screen Crossmatch 03/29/20 03/29/20 03/29/20 15:00 16:18 16:22 WBC RBC Hgb Hct MCV MCH MCHC RDW Plt Count MPV Immature Gran % (Auto) Neut % (Auto) Lymph % (Auto) [place] % (Auto) Eos % (Auto) Baso % (Auto) Lymph # (Auto) [place] # (Auto) Eos # (Auto) Baso # (Auto) Abs Immat Gran (auto) Absolute Neuts (auto) Absolute Nucleated RBC Nucleated RBC % (auto) Smear Tech's Comments ESR PT INR APTT D-Dimer ABG pH 7.35 ABG pCO2 48 H ABG pO2 79 L ABG HCO3 26 ABG O2 Saturation 94.8 ABG Base Excess -0.3 VBG pH VBG pCO2 VBG pO2 VBG HCO3 VBG O2 Saturation VBG Base Excess Oxygen Given ROOM AIR Sodium Potassium Chloride Carbon Dioxide Anion Gap BUN Creatinine Estim Creat Clear Calc Estimated GFR POC Glucose Random Glucose Osmolality Lactic Acid Lactic Acid Fup @ 2Hr Calcium Phosphorus Magnesium Total Bilirubin Direct Bilirubin AST ALT Alkaline Phosphatase Ammonia Lactate Dehydrogenase Total Creatine Kinase C-Reactive Protein B-Natriuretic Peptide Total Protein Albumin Procalcitonin Urine Color Urine Appearance Urine pH Ur Specific [place] Urine Protein Urine Glucose (UA) Urine Ketones Urine Blood Urine Nitrite Ur Leukocyte Esterase Urine RBC Urine WBC Ur Squamous Epith Cells Urine Bacteria Urine Yeast Urine Osmolality 196 L U Random Total Protein Ur Random Sodium < 20.0 Urine Creatinine Nasal Screen MRSA (PCR) Nasal S. aureus Screen Nasal MRSA/S.aureus Interp Vancomycin Trough Urine Opiates Screen Acetaminophen Ur Barbiturates Screen Ur Phencyclidine Scrn Ur Amphetamines Screen U Benzodiazepines Scrn Urine Cocaine Screen U Marijuana (THC) Screen Ethyl Alcohol Coronavirus (PCR) COVID-19 (GIOV[facility]) COVID-19 Clin Com HIV 1&2 Ab/P24 Ag 4thGn Influenza Type A (PCR) Influenza Type B (PCR) RSV RNA Qual (PCR) Blood Type Antibody Screen Crossmatch 03/29/20 03/29/20 03/29/20 16:22 16:22 19:01 WBC RBC Hgb Hct MCV MCH MCHC RDW Plt Count MPV Immature Gran % (Auto) Neut % (Auto) Lymph % (Auto) [place] % (Auto) Eos % (Auto) Baso % (Auto) Lymph # (Auto) [place] # (Auto) Eos # (Auto) Baso # (Auto) Abs Immat Gran (auto) Absolute Neuts (auto) Absolute Nucleated RBC Nucleated RBC % (auto) Smear Tech's Comments ESR PT INR APTT D-Dimer ABG pH ABG pCO2 ABG pO2 ABG HCO3 ABG O2 Saturation ABG Base Excess VBG pH VBG pCO2 VBG pO2 VBG HCO3 VBG O2 Saturation VBG Base Excess Oxygen Given Sodium Potassium Chloride Carbon Dioxide Anion Gap BUN Creatinine Estim Creat Clear Calc Estimated GFR POC Glucose Random Glucose Osmolality Lactic Acid Lactic Acid Fup @ 2Hr 2.3 H* Calcium Phosphorus Magnesium Total Bilirubin Direct Bilirubin AST ALT Alkaline Phosphatase Ammonia Lactate Dehydrogenase Total Creatine Kinase C-Reactive Protein B-Natriuretic Peptide Total Protein Albumin Procalcitonin Urine Color YELLOW Urine Appearance CLEAR Urine pH 6.5 Ur Specific [place] 1.015 Urine Protein NEG Urine Glucose (UA) NEG Urine Ketones NEG Urine Blood 2+ H Urine Nitrite NEG Ur Leukocyte Esterase NEG Urine RBC 1-4 Urine WBC 0 Ur Squamous Epith Cells TRACE Urine Bacteria TRACE Urine Yeast Urine Osmolality U Random Total Protein Ur Random Sodium Urine Creatinine Nasal Screen MRSA (PCR) Nasal S. aureus Screen Nasal MRSA/S.aureus Interp Vancomycin Trough Urine Opiates Screen POSITIVE H Acetaminophen Ur Barbiturates Screen Not Detected Ur Phencyclidine Scrn Not Detected Ur Amphetamines Screen Not Detected U Benzodiazepines Scrn Not Detected Urine Cocaine Screen Not Detected U Marijuana (THC) Screen Not Detected Ethyl Alcohol Coronavirus (PCR) COVID-19 (GI[facility]) COVID-19 Clin Com HIV 1&2 Ab/P24 Ag 4thGn Influenza Type A (PCR) Influenza Type B (PCR) RSV RNA Qual (PCR) Blood Type Antibody Screen Crossmatch 03/29/20 03/29/20 03/29/20 19:01 20:08 20:08 WBC RBC Hgb Hct MCV MCH MCHC RDW Plt Count MPV Immature Gran % (Auto) Neut % (Auto) Lymph % (Auto) [place] % (Auto) Eos % (Auto) Baso % (Auto) Lymph # (Auto) [place] # (Auto) Eos # (Auto) Baso # (Auto) Abs Immat Gran (auto) Absolute Neuts (auto) Absolute Nucleated RBC Nucleated RBC % (auto) Smear Tech's Comments ESR PT INR APTT D-Dimer ABG pH ABG pCO2 ABG pO2 ABG HCO3 ABG O2 Saturation ABG Base Excess VBG pH VBG pCO2 VBG pO2 VBG HCO3 VBG O2 Saturation VBG Base Excess Oxygen Given Sodium Cancelled 121 L Potassium Cancelled 5.1 D Chloride Cancelled 88 L Carbon Dioxide Cancelled 24 Anion Gap Cancelled 14 BUN Cancelled 8 L Creatinine Cancelled 0.66 Estim Creat Clear Calc Cancelled 106.0 Estimated GFR Cancelled > 60 POC Glucose Random Glucose Cancelled 143 H Osmolality Lactic Acid Lactic Acid Fup @ 2Hr Calcium Cancelled 8.0 L Phosphorus Magnesium Total Bilirubin Direct Bilirubin AST ALT Alkaline Phosphatase Ammonia 90 H Lactate Dehydrogenase Total Creatine Kinase C-Reactive Protein B-Natriuretic Peptide Total Protein Albumin Procalcitonin Urine Color Urine Appearance Urine pH Ur Specific [place] Urine Protein Urine Glucose (UA) Urine Ketones Urine Blood Urine Nitrite Ur Leukocyte Esterase Urine RBC Urine WBC Ur Squamous Epith Cells Urine Bacteria Urine Yeast Urine Osmolality U Random Total Protein Ur Random Sodium Urine Creatinine Nasal Screen MRSA (PCR) Nasal S. aureus Screen Nasal MRSA/S.aureus Interp Vancomycin Trough Urine Opiates Screen Acetaminophen Ur Barbiturates Screen Ur Phencyclidine Scrn Ur Amphetamines Screen U Benzodiazepines Scrn Urine Cocaine Screen U Marijuana (THC) Screen Ethyl Alcohol Coronavirus (PCR) COVID-19 ([facility]) COVID-19 Clin Com HIV 1&2 Ab/P24 Ag 4thGn Influenza Type A (PCR) Influenza Type B (PCR) RSV RNA Qual (PCR) Blood Type Antibody Screen Crossmatch 03/29/20 03/29/20 03/30/20 20:08 20:08 04:15 WBC 15.0 H RBC 2.64 L Hgb 8.7 L Hct 24.9 L MCV 94.3 MCH 33.0 MCHC 34.9 RDW 18.4 H Plt Count 75 L MPV 11.2 Immature Gran % (Auto) 0.9 H Neut % (Auto) 78.9 H Lymph % (Auto) 7.4 L [place] % (Auto) 10.3 Eos % (Auto) 2.2 Baso % (Auto) 0.3 Lymph # (Auto) 1.1 L [place] # (Auto) 1.6 H Eos # (Auto) 0.3 Baso # (Auto) 0.1 Abs Immat Gran (auto) 0.13 H Absolute Neuts (auto) 11.9 H Absolute Nucleated RBC 0.000 Nucleated RBC % (auto) 0.0 Smear Tech's Comments VERIFIED ESR PT INR APTT D-Dimer ABG pH ABG pCO2 ABG pO2 ABG HCO3 ABG O2 Saturation ABG Base Excess VBG pH VBG pCO2 VBG pO2 VBG HCO3 VBG O2 Saturation VBG Base Excess Oxygen Given Sodium Potassium Chloride Carbon Dioxide Anion Gap BUN Creatinine Estim Creat Clear Calc Estimated GFR POC Glucose Random Glucose Osmolality 257 L Lactic Acid 1.7 Lactic Acid Fup @ 2Hr Calcium Phosphorus Magnesium Total Bilirubin Direct Bilirubin AST ALT Alkaline Phosphatase Ammonia Lactate Dehydrogenase Total Creatine Kinase C-Reactive Protein B-Natriuretic Peptide Total Protein Albumin Procalcitonin Urine Color Urine Appearance Urine pH Ur Specific [place] Urine Protein Urine Glucose (UA) Urine Ketones Urine Blood Urine Nitrite Ur Leukocyte Esterase Urine RBC Urine WBC Ur Squamous Epith Cells Urine Bacteria Urine Yeast Urine Osmolality U Random Total Protein Ur Random Sodium Urine Creatinine Nasal Screen MRSA (PCR) Nasal S. aureus Screen Nasal MRSA/S.aureus Interp Vancomycin Trough Urine Opiates Screen Acetaminophen Ur Barbiturates Screen Ur Phencyclidine Scrn Ur Amphetamines Screen U Benzodiazepines Scrn Urine Cocaine Screen U Marijuana (THC) Screen Ethyl Alcohol Coronavirus (PCR) COVID-19 ([facility]) COVID-19 Clin Com HIV 1&2 Ab/P24 Ag 4thGn Influenza Type A (PCR) Influenza Type B (PCR) RSV RNA Qual (PCR) Blood Type Antibody Screen Crossmatch 03/30/20 03/30/20 03/30/20 06:08 09:03 10:07 WBC RBC Hgb Hct MCV MCH MCHC RDW Plt Count MPV Immature Gran % (Auto) Neut % (Auto) Lymph % (Auto) [place] % (Auto) Eos % (Auto) Baso % (Auto) Lymph # (Auto) [place] # (Auto) Eos # (Auto) Baso # (Auto) Abs Immat Gran (auto) Absolute Neuts (auto) Absolute Nucleated RBC Nucleated RBC % (auto) Smear Tech's Comments ESR PT INR APTT D-Dimer ABG pH ABG pCO2 ABG pO2 ABG HCO3 ABG O2 Saturation ABG Base Excess VBG pH VBG pCO2 VBG pO2 VBG HCO3 VBG O2 Saturation VBG Base Excess Oxygen Given Sodium 121 L 121 L Potassium 5.3 H 5.1 Chloride 88 L 89 L Carbon Dioxide 25 24 Anion Gap 13 13 BUN 9 9 Creatinine 0.71 0.71 Estim Creat Clear Calc 98.5 98.5 Estimated GFR > 60 > 60 POC Glucose 86 Random Glucose 85 D 97 Osmolality Lactic Acid Lactic Acid Fup @ 2Hr Calcium 8.2 L 8.2 L Phosphorus Magnesium Total Bilirubin Direct Bilirubin AST ALT Alkaline Phosphatase Ammonia Lactate Dehydrogenase Total Creatine Kinase C-Reactive Protein B-Natriuretic Peptide Total Protein Albumin Procalcitonin Urine Color Urine Appearance Urine pH Ur Specific [place] Urine Protein Urine Glucose (UA) Urine Ketones Urine Blood Urine Nitrite Ur Leukocyte Esterase Urine RBC Urine WBC Ur Squamous Epith Cells Urine Bacteria Urine Yeast Urine Osmolality U Random Total Protein Ur Random Sodium Urine Creatinine Nasal Screen MRSA (PCR) Nasal S. aureus Screen Nasal MRSA/S.aureus Interp Vancomycin Trough Urine Opiates Screen Acetaminophen Ur Barbiturates Screen Ur Phencyclidine Scrn Ur Amphetamines Screen U Benzodiazepines Scrn Urine Cocaine Screen U Marijuana (THC) Screen Ethyl Alcohol Coronavirus (PCR) COVID-19 (GI[facility]) COVID-19 Clin Com HIV 1&2 Ab/P24 Ag 4thGn Influenza Type A (PCR) Influenza Type B (PCR) RSV RNA Qual (PCR) Blood Type Antibody Screen Crossmatch 03/30/20 03/30/20 03/30/20 10:07 11:57 13:03 WBC RBC Hgb Hct MCV MCH MCHC RDW Plt Count MPV Immature Gran % (Auto) Neut % (Auto) Lymph % (Auto) [place] % (Auto) Eos % (Auto) Baso % (Auto) Lymph # (Auto) [place] # (Auto) Eos # (Auto) Baso # (Auto) Abs Immat Gran (auto) Absolute Neuts (auto) Absolute Nucleated RBC Nucleated RBC % (auto) Smear Tech's Comments ESR PT INR APTT D-Dimer ABG pH 7.36 ABG pCO2 54 H ABG pO2 91 ABG HCO3 31 H ABG O2 Saturation 96.0 ABG Base Excess 4.7 VBG pH VBG pCO2 VBG pO2 VBG HCO3 VBG O2 Saturation VBG Base Excess Oxygen Given 2 L Sodium Potassium Chloride Carbon Dioxide Anion Gap BUN Creatinine Estim Creat Clear Calc Estimated GFR POC Glucose 112 Random Glucose Osmolality Lactic Acid Lactic Acid Fup @ 2Hr Calcium Phosphorus Magnesium Total Bilirubin Direct Bilirubin AST ALT Alkaline Phosphatase Ammonia 85 H Lactate Dehydrogenase Total Creatine Kinase C-Reactive Protein B-Natriuretic Peptide Total Protein Albumin Procalcitonin Urine Color Urine Appearance Urine pH Ur Specific [place] Urine Protein Urine Glucose (UA) Urine Ketones Urine Blood Urine Nitrite Ur Leukocyte Esterase Urine RBC Urine WBC Ur Squamous Epith Cells Urine Bacteria Urine Yeast Urine Osmolality U Random Total Protein Ur Random Sodium Urine Creatinine Nasal Screen MRSA (PCR) Nasal S. aureus Screen Nasal MRSA/S.aureus Interp Vancomycin Trough Urine Opiates Screen Acetaminophen Ur Barbiturates Screen Ur Phencyclidine Scrn Ur Amphetamines Screen U Benzodiazepines Scrn Urine Cocaine Screen U Marijuana (THC) Screen Ethyl Alcohol Coronavirus (PCR) COVID-19 (GIOVANI) COVID-19 Clin Com HIV 1&2 Ab/P24 Ag 4thGn Influenza Type A (PCR) Influenza Type B (PCR) RSV RNA Qual (PCR) Blood Type Antibody Screen Crossmatch 03/30/20 03/30/20 03/31/20 16:12 17:34 05:18 WBC 11.6 H RBC 2.01 L D Hgb 6.6 L* D Hct 19.5 L* D MCV 97.0 MCH 32.8 MCHC 33.8 RDW 18.9 H Plt Count 59 L MPV 9.7 Immature Gran % (Auto) 0.9 H Neut % (Auto) 75.7 H Lymph % (Auto) 10.3 L [place] % (Auto) 10.8 Eos % (Auto) 2.1 Baso % (Auto) 0.2 Lymph # (Auto) 1.2 [place] # (Auto) 1.3 H Eos # (Auto) 0.2 Baso # (Auto) 0.0 Abs Immat Gran (auto) 0.11 H Absolute Neuts (auto) 8.8 H Absolute Nucleated RBC 0.000 Nucleated RBC % (auto) 0.0 Smear Tech's Comments ESR PT INR APTT D-Dimer ABG pH ABG pCO2 ABG pO2 ABG HCO3 ABG O2 Saturation ABG Base Excess VBG pH VBG pCO2 VBG pO2 VBG HCO3 VBG O2 Saturation VBG Base Excess Oxygen Given Sodium 123 L Potassium 5.0 Chloride 90 L Carbon Dioxide 26 Anion Gap 12 BUN 11 Creatinine 1.01 Estim Creat Clear Calc 69.3 Estimated GFR 57 POC Glucose 127 H Random Glucose 130 H Osmolality Lactic Acid Lactic Acid Fup @ 2Hr Calcium 8.2 L Phosphorus Magnesium Total Bilirubin Direct Bilirubin AST ALT Alkaline Phosphatase Ammonia Lactate Dehydrogenase Total Creatine Kinase C-Reactive Protein B-Natriuretic Peptide Total Protein Albumin Procalcitonin Urine Color Urine Appearance Urine pH Ur Specific [place] Urine Protein Urine Glucose (UA) Urine Ketones Urine Blood Urine Nitrite Ur Leukocyte Esterase Urine RBC Urine WBC Ur Squamous Epith Cells Urine Bacteria Urine Yeast Urine Osmolality U Random Total Protein Ur Random Sodium Urine Creatinine Nasal Screen MRSA (PCR) Nasal S. aureus Screen Nasal MRSA/S.aureus Interp Vancomycin Trough Urine Opiates Screen Acetaminophen Ur Barbiturates Screen Ur Phencyclidine Scrn Ur Amphetamines Screen U Benzodiazepines Scrn Urine Cocaine Screen U Marijuana (THC) Screen Ethyl Alcohol Coronavirus (PCR) COVID-19 ([facility]) COVID-19 Clin Com HIV 1&2 Ab/P24 Ag 4thGn Influenza Type A (PCR) Influenza Type B (PCR) RSV RNA Qual (PCR) Blood Type Antibody Screen Crossmatch 03/31/20 03/31/20 03/31/20 05:18 05:18 05:18 WBC RBC Hgb Hct MCV MCH MCHC RDW Plt Count MPV Immature Gran % (Auto) Neut % (Auto) Lymph % (Auto) [place] % (Auto) Eos % (Auto) Baso % (Auto) Lymph # (Auto) [place] # (Auto) Eos # (Auto) Baso # (Auto) Abs Immat Gran (auto) Absolute Neuts (auto) Absolute Nucleated RBC Nucleated RBC % (auto) Smear Tech's Comments ESR PT INR APTT D-Dimer ABG pH ABG pCO2 ABG pO2 ABG HCO3 ABG O2 Saturation ABG Base Excess VBG pH 7.43 VBG pCO2 45 VBG pO2 72 VBG HCO3 30 VBG O2 Saturation 96.0 VBG Base Excess 6.0 Oxygen Given Sodium Cancelled 125 L Potassium Cancelled 3.9 D Chloride Cancelled 91 L Carbon Dioxide Cancelled 27 Anion Gap Cancelled 11 L BUN Cancelled 10 Creatinine Cancelled 1.02 Estim Creat Clear Calc Cancelled 66.7 Estimated GFR Cancelled 57 POC Glucose Random Glucose Cancelled 95 Osmolality Lactic Acid Lactic Acid Fup @ 2Hr Calcium Cancelled 8.3 L Phosphorus Cancelled 2.5 L Magnesium 2.1 Total Bilirubin Direct Bilirubin AST ALT Alkaline Phosphatase Ammonia Lactate Dehydrogenase Total Creatine Kinase C-Reactive Protein B-Natriuretic Peptide Total Protein Albumin Procalcitonin Urine Color Urine Appearance Urine pH Ur Specific [place] Urine Protein Urine Glucose (UA) Urine Ketones Urine Blood Urine Nitrite Ur Leukocyte Esterase Urine RBC Urine WBC Ur Squamous Epith Cells Urine Bacteria Urine Yeast Urine Osmolality U Random Total Protein Ur Random Sodium Urine Creatinine Nasal Screen MRSA (PCR) Nasal S. aureus Screen Nasal MRSA/S.aureus Interp Vancomycin Trough Urine Opiates Screen Acetaminophen Ur Barbiturates Screen Ur Phencyclidine Scrn Ur Amphetamines Screen U Benzodiazepines Scrn Urine Cocaine Screen U Marijuana (THC) Screen Ethyl Alcohol Coronavirus (PCR) COVID-19 ([facility]) COVID-19 Clin Com HIV 1&2 Ab/P24 Ag 4thGn Influenza Type A (PCR) Influenza Type B (PCR) RSV RNA Qual (PCR) Blood Type Antibody Screen Crossmatch 03/31/20 03/31/20 03/31/20 06:49 12:01 12:05 WBC RBC Hgb Hct MCV MCH MCHC RDW Plt Count MPV Immature Gran % (Auto) Neut % (Auto) Lymph % (Auto) [place] % (Auto) Eos % (Auto) Baso % (Auto) Lymph # (Auto) [place] # (Auto) Eos # (Auto) Baso # (Auto) Abs Immat Gran (auto) Absolute Neuts (auto) Absolute Nucleated RBC Nucleated RBC % (auto) Smear Tech's Comments ESR PT INR APTT D-Dimer ABG pH ABG pCO2 ABG pO2 ABG HCO3 ABG O2 Saturation ABG Base Excess VBG pH VBG pCO2 VBG pO2 VBG HCO3 VBG O2 Saturation VBG Base Excess Oxygen Given Sodium 125 L Potassium 4.4 Chloride 91 L Carbon Dioxide 28 Anion Gap 10 L BUN Creatinine Estim Creat Clear Calc Estimated GFR POC Glucose Random Glucose Osmolality Lactic Acid Lactic Acid Fup @ 2Hr Calcium Phosphorus Magnesium Total Bilirubin 8.5 H Direct Bilirubin 4.7 H AST 74 H ALT 20 Alkaline Phosphatase 151 H D Ammonia 79 H Lactate Dehydrogenase Total Creatine Kinase C-Reactive Protein B-Natriuretic Peptide Total Protein 5.6 L Albumin 3.0 L Procalcitonin Urine Color Urine Appearance Urine pH Ur Specific [place] Urine Protein Urine Glucose (UA) Urine Ketones Urine Blood Urine Nitrite Ur Leukocyte Esterase Urine RBC Urine WBC Ur Squamous Epith Cells Urine Bacteria Urine Yeast Urine Osmolality U Random Total Protein Ur Random Sodium Urine Creatinine Nasal Screen MRSA (PCR) Nasal S. aureus Screen Nasal MRSA/S.aureus Interp Vancomycin Trough Urine Opiates Screen Acetaminophen Ur Barbiturates Screen Ur Phencyclidine Scrn Ur Amphetamines Screen U Benzodiazepines Scrn Urine Cocaine Screen U Marijuana (THC) Screen Ethyl Alcohol Coronavirus (PCR) COVID-19 ([facility]) COVID-19 Clin Com HIV 1&2 Ab/P24 Ag 4thGn Influenza Type A (PCR) Influenza Type B (PCR) RSV RNA Qual (PCR) Blood Type A Negative Antibody Screen NEGATIVE Crossmatch See Detail 03/31/20 03/31/20 03/31/20 12:05 12:50 18:05 WBC RBC Hgb Hct MCV MCH MCHC RDW Plt Count MPV Immature Gran % (Auto) Neut % (Auto) Lymph % (Auto) [place] % (Auto) Eos % (Auto) Baso % (Auto) Lymph # (Auto) [place] # (Auto) Eos # (Auto) Baso # (Auto) Abs Immat Gran (auto) Absolute Neuts (auto) Absolute Nucleated RBC Nucleated RBC % (auto) Smear Tech's Comments ESR PT INR APTT D-Dimer ABG pH ABG pCO2 ABG pO2 ABG HCO3 ABG O2 Saturation ABG Base Excess VBG pH 7.34 VBG pCO2 59 VBG pO2 178 VBG HCO3 32 VBG O2 Saturation 100.0 VBG Base Excess 6.1 Oxygen Given Sodium Potassium Chloride Carbon Dioxide Anion Gap BUN Creatinine Estim Creat Clear Calc Estimated GFR POC Glucose 122 H 95 Random Glucose Osmolality Lactic Acid Lactic Acid Fup @ 2Hr Calcium Phosphorus Magnesium Total Bilirubin Direct Bilirubin AST ALT Alkaline Phosphatase Ammonia Lactate Dehydrogenase Total Creatine Kinase C-Reactive Protein B-Natriuretic Peptide Total Protein Albumin Procalcitonin Urine Color Urine Appearance Urine pH Ur Specific [place] Urine Protein Urine Glucose (UA) Urine Ketones Urine Blood Urine Nitrite Ur Leukocyte Esterase Urine RBC Urine WBC Ur Squamous Epith Cells Urine Bacteria Urine Yeast Urine Osmolality U Random Total Protein Ur Random Sodium Urine Creatinine Nasal Screen MRSA (PCR) Nasal S. aureus Screen Nasal MRSA/S.aureus Interp Vancomycin Trough Urine Opiates Screen Acetaminophen Ur Barbiturates Screen Ur Phencyclidine Scrn Ur Amphetamines Screen U Benzodiazepines Scrn Urine Cocaine Screen U Marijuana (THC) Screen Ethyl Alcohol Coronavirus (PCR) COVID-19 ([facility]) COVID-19 Clin Com HIV 1&2 Ab/P24 Ag 4thGn Influenza Type A (PCR) Influenza Type B (PCR) RSV RNA Qual (PCR) Blood Type Antibody Screen Crossmatch 03/31/20 03/31/20 04/01/20 20:59 20:59 00:20 WBC RBC Hgb Hct MCV MCH MCHC RDW Plt Count MPV Immature Gran % (Auto) Neut % (Auto) Lymph % (Auto) [place] % (Auto) Eos % (Auto) Baso % (Auto) Lymph # (Auto) [place] # (Auto) Eos # (Auto) Baso # (Auto) Abs Immat Gran (auto) Absolute Neuts (auto) Absolute Nucleated RBC Nucleated RBC % (auto) Smear Tech's Comments ESR PT INR APTT D-Dimer ABG pH ABG pCO2 ABG pO2 ABG HCO3 ABG O2 Saturation ABG Base Excess VBG pH 7.33 VBG pCO2 56 VBG pO2 68 VBG HCO3 89 VBG O2 Saturation 92.0 VBG Base Excess 3.9 Oxygen Given Sodium 125 L Potassium 5.6 H D Chloride 93 L Carbon Dioxide 25 Anion Gap 13 BUN Creatinine Estim Creat Clear Calc Estimated GFR POC Glucose 101 Random Glucose Osmolality Lactic Acid Lactic Acid Fup @ 2Hr Calcium Phosphorus Magnesium Total Bilirubin Direct Bilirubin AST ALT Alkaline Phosphatase Ammonia Lactate Dehydrogenase Total Creatine Kinase C-Reactive Protein B-Natriuretic Peptide Total Protein Albumin Procalcitonin Urine Color Urine Appearance Urine pH Ur Specific [place] Urine Protein Urine Glucose (UA) Urine Ketones Urine Blood Urine Nitrite Ur Leukocyte Esterase Urine RBC Urine WBC Ur Squamous Epith Cells Urine Bacteria Urine Yeast Urine Osmolality U Random Total Protein Ur Random Sodium Urine Creatinine Nasal Screen MRSA (PCR) Nasal S. aureus Screen Nasal MRSA/S.aureus Interp Vancomycin Trough Urine Opiates Screen Acetaminophen Ur Barbiturates Screen Ur Phencyclidine Scrn Ur Amphetamines Screen U Benzodiazepines Scrn Urine Cocaine Screen U Marijuana (THC) Screen Ethyl Alcohol Coronavirus (PCR) COVID-19 ([facility]) COVID-19 Clin Com HIV 1&2 Ab/P24 Ag 4thGn Influenza Type A (PCR) Influenza Type B (PCR) RSV RNA Qual (PCR) Blood Type Antibody Screen Crossmatch 04/01/20 04/01/20 04/01/20 06:05 06:05 06:05 WBC 16.5 H RBC 2.64 L D Hgb 8.5 L D Hct 25.7 L D MCV 97.3 MCH 32.2 MCHC 33.1 RDW 19.4 H Plt Count 82 L D MPV 10.1 Immature Gran % (Auto) 0.9 H Neut % (Auto) 77.1 H Lymph % (Auto) 6.6 L [place] % (Auto) 13.8 H Eos % (Auto) 1.3 Baso % (Auto) 0.3 Lymph # (Auto) 1.1 L [place] # (Auto) 2.3 H Eos # (Auto) 0.2 Baso # (Auto) 0.1 Abs Immat Gran (auto) 0.15 H Absolute Neuts (auto) 12.7 H Absolute Nucleated RBC 0.000 Nucleated RBC % (auto) 0.0 Smear Tech's Comments VERIFIED ESR PT INR APTT D-Dimer ABG pH ABG pCO2 ABG pO2 ABG HCO3 ABG O2 Saturation ABG Base Excess VBG pH 7.35 VBG pCO2 56 VBG pO2 80 VBG HCO3 31 VBG O2 Saturation 96.0 VBG Base Excess 5.0 Oxygen Given Sodium 128 L Potassium 4.9 Chloride 95 L Carbon Dioxide 26 Anion Gap 12 BUN 11 Creatinine 1.08 Estim Creat Clear Calc 63.9 Estimated GFR 53 POC Glucose Random Glucose 119 H Osmolality Lactic Acid Lactic Acid Fup @ 2Hr Calcium 8.2 L Phosphorus Magnesium Total Bilirubin Direct Bilirubin AST ALT Alkaline Phosphatase Ammonia Lactate Dehydrogenase Total Creatine Kinase C-Reactive Protein B-Natriuretic Peptide Total Protein Albumin Procalcitonin Urine Color Urine Appearance Urine pH Ur Specific [place] Urine Protein Urine Glucose (UA) Urine Ketones Urine Blood Urine Nitrite Ur Leukocyte Esterase Urine RBC Urine WBC Ur Squamous Epith Cells Urine Bacteria Urine Yeast Urine Osmolality U Random Total Protein Ur Random Sodium Urine Creatinine Nasal Screen MRSA (PCR) Nasal S. aureus Screen Nasal MRSA/S.aureus Interp Vancomycin Trough Urine Opiates Screen Acetaminophen Ur Barbiturates Screen Ur Phencyclidine Scrn Ur Amphetamines Screen U Benzodiazepines Scrn Urine Cocaine Screen U Marijuana (THC) Screen Ethyl Alcohol Coronavirus (PCR) COVID-19 ([facility]) COVID-19 Clin Com HIV 1&2 Ab/P24 Ag 4thGn Influenza Type A (PCR) Influenza Type B (PCR) RSV RNA Qual (PCR) Blood Type Antibody Screen Crossmatch 04/01/20 04/01/20 04/01/20 06:05 11:07 11:10 WBC RBC Hgb Hct MCV MCH MCHC RDW Plt Count MPV Immature Gran % (Auto) Neut % (Auto) Lymph % (Auto) [place] % (Auto) Eos % (Auto) Baso % (Auto) Lymph # (Auto) [place] # (Auto) Eos # (Auto) Baso # (Auto) Abs Immat Gran (auto) Absolute Neuts (auto) Absolute Nucleated RBC Nucleated RBC % (auto) Smear Tech's Comments ESR PT INR APTT D-Dimer ABG pH ABG pCO2 ABG pO2 ABG HCO3 ABG O2 Saturation ABG Base Excess VBG pH 7.30 L VBG pCO2 58 VBG pO2 133 VBG HCO3 29 VBG O2 Saturation 99.0 VBG Base Excess 2.2 Oxygen Given Sodium 132 L Potassium 4.1 Chloride 97 Carbon Dioxide 27 Anion Gap 12 BUN Creatinine Estim Creat Clear Calc Estimated GFR POC Glucose Random Glucose Osmolality Lactic Acid Lactic Acid Fup @ 2Hr Calcium Phosphorus 3.5 Magnesium 2.1 Total Bilirubin 11.8 H Direct Bilirubin 6.6 H AST 79 H ALT 23 Alkaline Phosphatase 168 H Ammonia 68 H Lactate Dehydrogenase Total Creatine Kinase C-Reactive Protein B-Natriuretic Peptide Total Protein 6.0 L Albumin 3.0 L Procalcitonin Urine Color Urine Appearance Urine pH Ur Specific [place] Urine Protein Urine Glucose (UA) Urine Ketones Urine Blood Urine Nitrite Ur Leukocyte Esterase Urine RBC Urine WBC Ur Squamous Epith Cells Urine Bacteria Urine Yeast Urine Osmolality U Random Total Protein Ur Random Sodium Urine Creatinine Nasal Screen MRSA (PCR) Nasal S. aureus Screen Nasal MRSA/S.aureus Interp Vancomycin Trough Urine Opiates Screen Acetaminophen Ur Barbiturates Screen Ur Phencyclidine Scrn Ur Amphetamines Screen U Benzodiazepines Scrn Urine Cocaine Screen U Marijuana (THC) Screen Ethyl Alcohol Coronavirus (PCR) COVID-19 ([facility]) COVID-19 Clin Com HIV 1&2 Ab/P24 Ag 4thGn Influenza Type A (PCR) Influenza Type B (PCR) RSV RNA Qual (PCR) Blood Type Antibody Screen Crossmatch 04/01/20 04/01/20 04/01/20 11:49 13:45 13:45 WBC 15.8 H RBC 2.59 L Hgb 8.4 L Hct 25.3 L MCV 97.7 MCH 32.4 MCHC 33.2 RDW 19.6 H Plt Count 67 L MPV 10.7 Immature Gran % (Auto) 0.9 H Neut % (Auto) 90.4 H Lymph % (Auto) 3.4 L [place] % (Auto) 4.8 Eos % (Auto) 0.2 Baso % (Auto) 0.3 Lymph # (Auto) 0.5 L [place] # (Auto) 0.8 Eos # (Auto) 0.0 Baso # (Auto) 0.0 Abs Immat Gran (auto) 0.14 H Absolute Neuts (auto) 14.3 H Absolute Nucleated RBC 0.000 Nucleated RBC % (auto) 0.0 Smear Tech's Comments ESR PT INR APTT D-Dimer ABG pH ABG pCO2 ABG pO2 ABG HCO3 ABG O2 Saturation ABG Base Excess VBG pH 7.35 VBG pCO2 49 VBG pO2 78 VBG HCO3 27 VBG O2 Saturation 94.0 VBG Base Excess 1.7 Oxygen Given Sodium Potassium Chloride Carbon Dioxide Anion Gap BUN Creatinine Estim Creat Clear Calc Estimated GFR POC Glucose 137 H Random Glucose Osmolality Lactic Acid Lactic Acid Fup @ 2Hr Calcium Phosphorus Magnesium Total Bilirubin Direct Bilirubin AST ALT Alkaline Phosphatase Ammonia Lactate Dehydrogenase Total Creatine Kinase C-Reactive Protein B-Natriuretic Peptide Total Protein Albumin Procalcitonin Urine Color Urine Appearance Urine pH Ur Specific [place] Urine Protein Urine Glucose (UA) Urine Ketones Urine Blood Urine Nitrite Ur Leukocyte Esterase Urine RBC Urine WBC Ur Squamous Epith Cells Urine Bacteria Urine Yeast Urine Osmolality U Random Total Protein Ur Random Sodium Urine Creatinine Nasal Screen MRSA (PCR) Nasal S. aureus Screen Nasal MRSA/S.aureus Interp Vancomycin Trough Urine Opiates Screen Acetaminophen Ur Barbiturates Screen Ur Phencyclidine Scrn Ur Amphetamines Screen U Benzodiazepines Scrn Urine Cocaine Screen U Marijuana (THC) Screen Ethyl Alcohol Coronavirus (PCR) COVID-19 ([facility]) COVID-19 Clin Com HIV 1&2 Ab/P24 Ag 4thGn Influenza Type A (PCR) Influenza Type B (PCR) RSV RNA Qual (PCR) Blood Type Antibody Screen Crossmatch 04/01/20 04/01/20 04/02/20 13:45 17:59 04:50 WBC RBC Hgb Hct MCV MCH MCHC RDW Plt Count MPV Immature Gran % (Auto) Neut % (Auto) Lymph % (Auto) [place] % (Auto) Eos % (Auto) Baso % (Auto) Lymph # (Auto) [place] # (Auto) Eos # (Auto) Baso # (Auto) Abs Immat Gran (auto) Absolute Neuts (auto) Absolute Nucleated RBC Nucleated RBC % (auto) Smear Tech's Comments ESR PT 28.0 H D 26.2 H INR 2.3 H 2.2 H APTT D-Dimer ABG pH ABG pCO2 ABG pO2 ABG HCO3 ABG O2 Saturation ABG Base Excess VBG pH VBG pCO2 VBG pO2 VBG HCO3 VBG O2 Saturation VBG Base Excess Oxygen Given Sodium Potassium Chloride Carbon Dioxide Anion Gap BUN Creatinine Estim Creat Clear Calc Estimated GFR POC Glucose 148 H Random Glucose Osmolality Lactic Acid Lactic Acid Fup @ 2Hr Calcium Phosphorus Magnesium Total Bilirubin Direct Bilirubin AST ALT Alkaline Phosphatase Ammonia Lactate Dehydrogenase Total Creatine Kinase C-Reactive Protein B-Natriuretic Peptide Total Protein Albumin Procalcitonin Urine Color Urine Appearance Urine pH Ur Specific [place] Urine Protein Urine Glucose (UA) Urine Ketones Urine Blood Urine Nitrite Ur Leukocyte Esterase Urine RBC Urine WBC Ur Squamous Epith Cells Urine Bacteria Urine Yeast Urine Osmolality U Random Total Protein Ur Random Sodium Urine Creatinine Nasal Screen MRSA (PCR) Nasal S. aureus Screen Nasal MRSA/S.aureus Interp Vancomycin Trough Urine Opiates Screen Acetaminophen Ur Barbiturates Screen Ur Phencyclidine Scrn Ur Amphetamines Screen U Benzodiazepines Scrn Urine Cocaine Screen U Marijuana (THC) Screen Ethyl Alcohol Coronavirus (PCR) COVID-19 ([facility]) COVID-19 Clin Com HIV 1&2 Ab/P24 Ag 4thGn Influenza Type A (PCR) Influenza Type B (PCR) RSV RNA Qual (PCR) Blood Type Antibody Screen Crossmatch 04/02/20 04/02/20 04/02/20 04:50 04:50 04:50 WBC 14.0 H RBC 2.68 L Hgb 8.6 L Hct 26.0 L MCV 97.0 MCH 32.1 MCHC 33.1 RDW 19.4 H Plt Count 71 L MPV 11.0 Immature Gran % (Auto) 1.1 H Neut % (Auto) 88.8 H Lymph % (Auto) 5.6 L [place] % (Auto) 4.4 Eos % (Auto) 0.0 Baso % (Auto) 0.1 Lymph # (Auto) 0.8 L [place] # (Auto) 0.6 Eos # (Auto) 0.0 Baso # (Auto) 0.0 Abs Immat Gran (auto) 0.16 H Absolute Neuts (auto) 12.5 H Absolute Nucleated RBC 0.000 Nucleated RBC % (auto) 0.0 Smear Tech's Comments VERIFIED ESR PT INR APTT D-Dimer ABG pH ABG pCO2 ABG pO2 ABG HCO3 ABG O2 Saturation ABG Base Excess VBG pH VBG pCO2 VBG pO2 VBG HCO3 VBG O2 Saturation VBG Base Excess Oxygen Given Sodium 133 L Potassium 3.5 Chloride 97 Carbon Dioxide 25 Anion Gap 15 BUN 13 Creatinine 1.05 Estim Creat Clear Calc 65.8 Estimated GFR 55 POC Glucose Random Glucose 146 H Osmolality Lactic Acid Lactic Acid Fup @ 2Hr Calcium 8.4 Phosphorus Magnesium Total Bilirubin Direct Bilirubin AST ALT Alkaline Phosphatase Ammonia 87 H Lactate Dehydrogenase Total Creatine Kinase C-Reactive Protein B-Natriuretic Peptide Total Protein Albumin Procalcitonin Urine Color Urine Appearance Urine pH Ur Specific [place] Urine Protein Urine Glucose (UA) Urine Ketones Urine Blood Urine Nitrite Ur Leukocyte Esterase Urine RBC Urine WBC Ur Squamous Epith Cells Urine Bacteria Urine Yeast Urine Osmolality U Random Total Protein Ur Random Sodium Urine Creatinine Nasal Screen MRSA (PCR) Nasal S. aureus Screen Nasal MRSA/S.aureus Interp Vancomycin Trough Urine Opiates Screen Acetaminophen Ur Barbiturates Screen Ur Phencyclidine Scrn Ur Amphetamines Screen U Benzodiazepines Scrn Urine Cocaine Screen U Marijuana (THC) Screen Ethyl Alcohol Coronavirus (PCR) COVID-19 ([facility]) COVID-19 Clin Com HIV 1&2 Ab/P24 Ag 4thGn Influenza Type A (PCR) Influenza Type B (PCR) RSV RNA Qual (PCR) Blood Type Antibody Screen Crossmatch 04/02/20 04/02/20 04/03/20 13:09 17:58 01:36 WBC RBC Hgb Hct MCV MCH MCHC RDW Plt Count MPV Immature Gran % (Auto) Neut % (Auto) Lymph % (Auto) [place] % (Auto) Eos % (Auto) Baso % (Auto) Lymph # (Auto) [place] # (Auto) Eos # (Auto) Baso # (Auto) Abs Immat Gran (auto) Absolute Neuts (auto) Absolute Nucleated RBC Nucleated RBC % (auto) Smear Tech's Comments ESR PT INR APTT D-Dimer ABG pH ABG pCO2 ABG pO2 ABG HCO3 ABG O2 Saturation ABG Base Excess VBG pH VBG pCO2 VBG pO2 VBG HCO3 VBG O2 Saturation VBG Base Excess Oxygen Given Sodium Potassium Chloride Carbon Dioxide Anion Gap BUN Creatinine Estim Creat Clear Calc Estimated GFR POC Glucose 165 H 166 H 165 H Random Glucose Osmolality Lactic Acid Lactic Acid Fup @ 2Hr Calcium Phosphorus Magnesium Total Bilirubin Direct Bilirubin AST ALT Alkaline Phosphatase Ammonia Lactate Dehydrogenase Total Creatine Kinase C-Reactive Protein B-Natriuretic Peptide Total Protein Albumin Procalcitonin Urine Color Urine Appearance Urine pH Ur Specific [place] Urine Protein Urine Glucose (UA) Urine Ketones Urine Blood Urine Nitrite Ur Leukocyte Esterase Urine RBC Urine WBC Ur Squamous Epith Cells Urine Bacteria Urine Yeast Urine Osmolality U Random Total Protein Ur Random Sodium Urine Creatinine Nasal Screen MRSA (PCR) Nasal S. aureus Screen Nasal MRSA/S.aureus Interp Vancomycin Trough Urine Opiates Screen Acetaminophen Ur Barbiturates Screen Ur Phencyclidine Scrn Ur Amphetamines Screen U Benzodiazepines Scrn Urine Cocaine Screen U Marijuana (THC) Screen Ethyl Alcohol Coronavirus (PCR) COVID-19 ([facility]) COVID-19 Clin Com HIV 1&2 Ab/P24 Ag 4thGn Influenza Type A (PCR) Influenza Type B (PCR) RSV RNA Qual (PCR) Blood Type Antibody Screen Crossmatch 04/03/20 04/03/20 04/03/20 05:11 05:11 05:11 WBC 17.4 H RBC 2.78 L Hgb 9.2 L Hct 27.6 L MCV 99.3 H MCH 33.1 H MCHC 33.3 RDW 20.9 H Plt Count 72 L MPV 10.4 Immature Gran % (Auto) 1.6 H Neut % (Auto) 88.2 H Lymph % (Auto) 4.0 L [place] % (Auto) 6.0 Eos % (Auto) 0.1 Baso % (Auto) 0.1 Lymph # (Auto) 0.7 L [place] # (Auto) 1.0 Eos # (Auto) 0.0 Baso # (Auto) 0.0 Abs Immat Gran (auto) 0.27 H Absolute Neuts (auto) 15.4 H Absolute Nucleated RBC 0.000 Nucleated RBC % (auto) 0.0 Smear Tech's Comments ESR PT INR APTT D-Dimer ABG pH ABG pCO2 ABG pO2 ABG HCO3 ABG O2 Saturation ABG Base Excess VBG pH 7.40 VBG pCO2 52 VBG pO2 97 VBG HCO3 32 VBG O2 Saturation 98.0 VBG Base Excess 7.1 Oxygen Given Sodium 138 Potassium 3.5 Chloride 101 Carbon Dioxide 28 Anion Gap 13 BUN 19 H Creatinine 1.47 H Estim Creat Clear Calc 46.9 Estimated GFR 37 POC Glucose Random Glucose 176 H Osmolality Lactic Acid Lactic Acid Fup @ 2Hr Calcium 8.8 Phosphorus 2.5 L Magnesium 1.9 Total Bilirubin 7.1 H Direct Bilirubin AST 72 H ALT 27 Alkaline Phosphatase 164 H Ammonia Lactate Dehydrogenase Total Creatine Kinase C-Reactive Protein B-Natriuretic Peptide Total Protein 5.9 L Albumin 2.8 L Procalcitonin Urine Color Urine Appearance Urine pH Ur Specific [place] Urine Protein Urine Glucose (UA) Urine Ketones Urine Blood Urine Nitrite Ur Leukocyte Esterase Urine RBC Urine WBC Ur Squamous Epith Cells Urine Bacteria Urine Yeast Urine Osmolality U Random Total Protein Ur Random Sodium Urine Creatinine Nasal Screen MRSA (PCR) Nasal S. aureus Screen Nasal MRSA/S.aureus Interp Vancomycin Trough Urine Opiates Screen Acetaminophen Ur Barbiturates Screen Ur Phencyclidine Scrn Ur Amphetamines Screen U Benzodiazepines Scrn Urine Cocaine Screen U Marijuana (THC) Screen Ethyl Alcohol Coronavirus (PCR) COVID-19 ([facility]) COVID-19 Clin Com HIV 1&2 Ab/P24 Ag 4thGn Influenza Type A (PCR) Influenza Type B (PCR) RSV RNA Qual (PCR) Blood Type Antibody Screen Crossmatch 04/03/20 04/03/20 04/03/20 05:11 13:45 14:11 WBC RBC Hgb Hct MCV MCH MCHC RDW Plt Count MPV Immature Gran % (Auto) Neut % (Auto) Lymph % (Auto) [place] % (Auto) Eos % (Auto) Baso % (Auto) Lymph # (Auto) [place] # (Auto) Eos # (Auto) Baso # (Auto) Abs Immat Gran (auto) Absolute Neuts (auto) Absolute Nucleated RBC Nucleated RBC % (auto) Smear Tech's Comments ESR PT INR APTT D-Dimer ABG pH ABG pCO2 ABG pO2 ABG HCO3 ABG O2 Saturation ABG Base Excess VBG pH VBG pCO2 VBG pO2 VBG HCO3 VBG O2 Saturation VBG Base Excess Oxygen Given Sodium Potassium Chloride Carbon Dioxide Anion Gap BUN Creatinine Estim Creat Clear Calc Estimated GFR POC Glucose 141 H Random Glucose Osmolality Lactic Acid Lactic Acid Fup @ 2Hr Calcium Phosphorus Magnesium Total Bilirubin Direct Bilirubin AST ALT Alkaline Phosphatase Ammonia 71 H Lactate Dehydrogenase Total Creatine Kinase C-Reactive Protein B-Natriuretic Peptide Total Protein Albumin Procalcitonin Urine Color YELLOW Urine Appearance HAZY Urine pH 6.0 Ur Specific [place] 1.010 Urine Protein NEG Urine Glucose (UA) NEG Urine Ketones NEG Urine Blood 1+ H Urine Nitrite NEG Ur Leukocyte Esterase TRACE H Urine RBC 1-4 Urine WBC 1-4 Ur Squamous Epith Cells TRACE Urine Bacteria 1+ Urine Yeast 2+ Urine Osmolality U Random Total Protein Ur Random Sodium Urine Creatinine Nasal Screen MRSA (PCR) Nasal S. aureus Screen Nasal MRSA/S.aureus Interp Vancomycin Trough Urine Opiates Screen Acetaminophen Ur Barbiturates Screen Ur Phencyclidine Scrn Ur Amphetamines Screen U Benzodiazepines Scrn Urine Cocaine Screen U Marijuana (THC) Screen Ethyl Alcohol Coronavirus (PCR) COVID-19 ([facility]) COVID-19 Clin Com HIV 1&2 Ab/P24 Ag 4thGn Influenza Type A (PCR) Influenza Type B (PCR) RSV RNA Qual (PCR) Blood Type Antibody Screen Crossmatch 04/03/20 04/04/20 04/04/20 21:28 00:57 05:36 WBC 12.5 H RBC 2.54 L Hgb 8.4 L Hct 25.9 L MCV 102.0 H MCH 33.1 H MCHC 32.4 RDW 22.0 H Plt Count 68 L MPV 10.6 Immature Gran % (Auto) 1.5 H Neut % (Auto) 85.9 H Lymph % (Auto) 5.7 L [place] % (Auto) 6.8 Eos % (Auto) 0.0 Baso % (Auto) 0.1 Lymph # (Auto) 0.7 L [place] # (Auto) 0.9 Eos # (Auto) 0.0 Baso # (Auto) 0.0 Abs Immat Gran (auto) 0.19 H Absolute Neuts (auto) 10.8 H Absolute Nucleated RBC 0.000 Nucleated RBC % (auto) 0.0 Smear Tech's Comments ESR PT INR APTT D-Dimer ABG pH ABG pCO2 ABG pO2 ABG HCO3 ABG O2 Saturation ABG Base Excess VBG pH VBG pCO2 VBG pO2 VBG HCO3 VBG O2 Saturation VBG Base Excess Oxygen Given Sodium Potassium Chloride Carbon Dioxide Anion Gap BUN Creatinine Estim Creat Clear Calc Estimated GFR POC Glucose 146 H Random Glucose Osmolality Lactic Acid Lactic Acid Fup @ 2Hr Calcium Phosphorus Magnesium Total Bilirubin Direct Bilirubin AST ALT Alkaline Phosphatase Ammonia Lactate Dehydrogenase Total Creatine Kinase C-Reactive Protein B-Natriuretic Peptide Total Protein Albumin Procalcitonin Urine Color Urine Appearance Urine pH Ur Specific [place] Urine Protein Urine Glucose (UA) Urine Ketones Urine Blood Urine Nitrite Ur Leukocyte Esterase Urine RBC Urine WBC Ur Squamous Epith Cells Urine Bacteria Urine Yeast Urine Osmolality U Random Total Protein 13 H Ur Random Sodium 33.0 Urine Creatinine 43.04 Nasal Screen MRSA (PCR) Nasal S. aureus Screen Nasal MRSA/S.aureus Interp Vancomycin Trough Urine Opiates Screen Acetaminophen Ur Barbiturates Screen Ur Phencyclidine Scrn Ur Amphetamines Screen U Benzodiazepines Scrn Urine Cocaine Screen U Marijuana (THC) Screen Ethyl Alcohol Coronavirus (PCR) COVID-19 ([facility]) COVID-19 Clin Com HIV 1&2 Ab/P24 Ag 4thGn Influenza Type A (PCR) Influenza Type B (PCR) RSV RNA Qual (PCR) Blood Type Antibody Screen Crossmatch 04/04/20 04/04/20 04/04/20 05:36 05:36 08:27 WBC RBC Hgb Hct MCV MCH MCHC RDW Plt Count MPV Immature Gran % (Auto) Neut % (Auto) Lymph % (Auto) [place] % (Auto) Eos % (Auto) Baso % (Auto) Lymph # (Auto) [place] # (Auto) Eos # (Auto) Baso # (Auto) Abs Immat Gran (auto) Absolute Neuts (auto) Absolute Nucleated RBC Nucleated RBC % (auto) Smear Tech's Comments ESR PT INR APTT D-Dimer ABG pH ABG pCO2 ABG pO2 ABG HCO3 ABG O2 Saturation ABG Base Excess VBG pH 7.45 H VBG pCO2 49 VBG pO2 74 VBG HCO3 34 VBG O2 Saturation 94.0 VBG Base Excess 9.9 Oxygen Given Sodium 140 Potassium 3.8 Chloride 102 Carbon Dioxide 32 H Anion Gap 10 L BUN 15 Creatinine 1.06 Estim Creat Clear Calc 64.5 Estimated GFR 54 POC Glucose Random Glucose 129 H Osmolality Lactic Acid Lactic Acid Fup @ 2Hr Calcium 8.9 Phosphorus 2.6 L Magnesium 1.6 Total Bilirubin 5.4 H Direct Bilirubin AST 86 H ALT 32 H Alkaline Phosphatase 139 H Ammonia 44 Lactate Dehydrogenase Total Creatine Kinase C-Reactive Protein B-Natriuretic Peptide Total Protein 5.3 L Albumin 2.5 L Procalcitonin Urine Color Urine Appearance Urine pH Ur Specific [place] Urine Protein Urine Glucose (UA) Urine Ketones Urine Blood Urine Nitrite Ur Leukocyte Esterase Urine RBC Urine WBC Ur Squamous Epith Cells Urine Bacteria Urine Yeast Urine Osmolality U Random Total Protein Ur Random Sodium Urine Creatinine Nasal Screen MRSA (PCR) Nasal S. aureus Screen Nasal MRSA/S.aureus Interp Vancomycin Trough Urine Opiates Screen Acetaminophen Ur Barbiturates Screen Ur Phencyclidine Scrn Ur Amphetamines Screen U Benzodiazepines Scrn Urine Cocaine Screen U Marijuana (THC) Screen Ethyl Alcohol Coronavirus (PCR) COVID-19 ([facility]) COVID-19 Clin Com HIV 1&2 Ab/P24 Ag 4thGn Influenza Type A (PCR) Influenza Type B (PCR) RSV RNA Qual (PCR) Blood Type Antibody Screen Crossmatch 04/04/20 04/04/20 04/04/20 11:36 11:46 11:46 WBC 12.3 H RBC 2.59 L Hgb 8.6 L Hct 26.5 L MCV 102.3 H MCH 33.2 H MCHC 32.5 RDW 22.5 H Plt Count 65 L MPV 9.9 Immature Gran % (Auto) 1.5 H Neut % (Auto) 83.7 H Lymph % (Auto) 7.0 L [place] % (Auto) 7.6 Eos % (Auto) 0.1 Baso % (Auto) 0.1 Lymph # (Auto) 0.9 L [place] # (Auto) 0.9 Eos # (Auto) 0.0 Baso # (Auto) 0.0 Abs Immat Gran (auto) 0.18 H Absolute Neuts (auto) 10.3 H Absolute Nucleated RBC 0.000 Nucleated RBC % (auto) 0.0 Smear Tech's Comments ESR 9 PT INR APTT D-Dimer 627 ABG pH ABG pCO2 ABG pO2 ABG HCO3 ABG O2 Saturation ABG Base Excess VBG pH VBG pCO2 VBG pO2 VBG HCO3 VBG O2 Saturation VBG Base Excess Oxygen Given Sodium Potassium Chloride Carbon Dioxide Anion Gap BUN Creatinine Estim Creat Clear Calc Estimated GFR POC Glucose Random Glucose Osmolality Lactic Acid Lactic Acid Fup @ 2Hr Calcium Phosphorus Magnesium Total Bilirubin Direct Bilirubin AST ALT Alkaline Phosphatase Ammonia Lactate Dehydrogenase Total Creatine Kinase C-Reactive Protein B-Natriuretic Peptide Total Protein Albumin Procalcitonin Urine Color Urine Appearance Urine pH Ur Specific [place] Urine Protein Urine Glucose (UA) Urine Ketones Urine Blood Urine Nitrite Ur Leukocyte Esterase Urine RBC Urine WBC Ur Squamous Epith Cells Urine Bacteria Urine Yeast Urine Osmolality U Random Total Protein Ur Random Sodium Urine Creatinine Nasal Screen MRSA (PCR) Nasal S. aureus Screen Nasal MRSA/S.aureus Interp Vancomycin Trough Urine Opiates Screen Acetaminophen Ur Barbiturates Screen Ur Phencyclidine Scrn Ur Amphetamines Screen U Benzodiazepines Scrn Urine Cocaine Screen U Marijuana (THC) Screen Ethyl Alcohol Coronavirus (PCR) COVID-19 ([facility]) COVID-19 Clin Com HIV 1&2 Ab/P24 Ag 4thGn Influenza Type A (PCR) Influenza Type B (PCR) RSV RNA Qual (PCR) Blood Type Antibody Screen Crossmatch 04/04/20 04/04/20 04/04/20 11:46 11:47 12:42 WBC RBC Hgb Hct MCV MCH MCHC RDW Plt Count MPV Immature Gran % (Auto) Neut % (Auto) Lymph % (Auto) [place] % (Auto) Eos % (Auto) Baso % (Auto) Lymph # (Auto) [place] # (Auto) Eos # (Auto) Baso # (Auto) Abs Immat Gran (auto) Absolute Neuts (auto) Absolute Nucleated RBC Nucleated RBC % (auto) Smear Tech's Comments ESR PT INR APTT D-Dimer ABG pH ABG pCO2 ABG pO2 ABG HCO3 ABG O2 Saturation ABG Base Excess VBG pH VBG pCO2 VBG pO2 VBG HCO3 VBG O2 Saturation VBG Base Excess Oxygen Given Sodium Potassium Chloride Carbon Dioxide Anion Gap BUN Creatinine Estim Creat Clear Calc Estimated GFR POC Glucose Random Glucose 123 H Osmolality Lactic Acid Lactic Acid Fup @ 2Hr Calcium Phosphorus 2.6 L Magnesium 1.6 Total Bilirubin Direct Bilirubin AST ALT Alkaline Phosphatase Ammonia Lactate Dehydrogenase 407 H Total Creatine Kinase 31 C-Reactive Protein 1.91 H B-Natriuretic Peptide Total Protein Albumin Procalcitonin 0.08 Urine Color Urine Appearance Urine pH Ur Specific [place] Urine Protein Urine Glucose (UA) Urine Ketones Urine Blood Urine Nitrite Ur Leukocyte Esterase Urine RBC Urine WBC Ur Squamous Epith Cells Urine Bacteria Urine Yeast Urine Osmolality U Random Total Protein Ur Random Sodium Urine Creatinine Nasal Screen MRSA (PCR) Nasal S. aureus Screen Nasal MRSA/S.aureus Interp Vancomycin Trough Urine Opiates Screen Acetaminophen Ur Barbiturates Screen Ur Phencyclidine Scrn Ur Amphetamines Screen U Benzodiazepines Scrn Urine Cocaine Screen U Marijuana (THC) Screen Ethyl Alcohol Coronavirus (PCR) COVID-19 ([facility]) Negative COVID-19 Clin Com See Note HIV 1&2 Ab/P24 Ag 4thGn Influenza Type A (PCR) Influenza Type B (PCR) RSV RNA Qual (PCR) Blood Type Antibody Screen Crossmatch 04/05/20 04/05/20 04/05/20 05:20 05:20 05:20 WBC 10.4 RBC 2.52 L Hgb 8.3 L Hct 25.6 L MCV 101.6 H MCH 32.9 MCHC 32.4 RDW 21.9 H Plt Count 57 L MPV 10.4 Immature Gran % (Auto) 1.4 H Neut % (Auto) 89.3 H Lymph % (Auto) 4.8 L [place] % (Auto) 4.5 Eos % (Auto) 0.0 Baso % (Auto) 0.0 Lymph # (Auto) 0.5 L [place] # (Auto) 0.5 Eos # (Auto) 0.0 Baso # (Auto) 0.0 Abs Immat Gran (auto) 0.15 H Absolute Neuts (auto) 9.2 H Absolute Nucleated RBC 0.000 Nucleated RBC % (auto) 0.0 Smear Tech's Comments VERIFIED ESR PT 24.0 H INR 2.0 H APTT 46.8 H D-Dimer 693 ABG pH ABG pCO2 ABG pO2 ABG HCO3 ABG O2 Saturation ABG Base Excess VBG pH VBG pCO2 VBG pO2 VBG HCO3 VBG O2 Saturation VBG Base Excess Oxygen Given Sodium 137 Potassium 3.7 Chloride 101 Carbon Dioxide 28 Anion Gap 12 BUN 10 Creatinine 0.81 Estim Creat Clear Calc 82.2 Estimated GFR > 60 POC Glucose Random Glucose 122 H Osmolality Lactic Acid Lactic Acid Fup @ 2Hr Calcium 8.7 Phosphorus 3.0 Magnesium 1.6 Total Bilirubin Direct Bilirubin AST ALT Alkaline Phosphatase Ammonia Lactate Dehydrogenase 477 H Total Creatine Kinase 122 D C-Reactive Protein 1.39 H B-Natriuretic Peptide Total Protein Albumin Procalcitonin Urine Color Urine Appearance Urine pH Ur Specific [place] Urine Protein Urine Glucose (UA) Urine Ketones Urine Blood Urine Nitrite Ur Leukocyte Esterase Urine RBC Urine WBC Ur Squamous Epith Cells Urine Bacteria Urine Yeast Urine Osmolality U Random Total Protein Ur Random Sodium Urine Creatinine Nasal Screen MRSA (PCR) Nasal S. aureus Screen Nasal MRSA/S.aureus Interp Vancomycin Trough Urine Opiates Screen Acetaminophen Ur Barbiturates Screen Ur Phencyclidine Scrn Ur Amphetamines Screen U Benzodiazepines Scrn Urine Cocaine Screen U Marijuana (THC) Screen Ethyl Alcohol Coronavirus (PCR) COVID-19 ([facility]) COVID-19 Clin Com HIV 1&2 Ab/P24 Ag 4thGn Influenza Type A (PCR) Influenza Type B (PCR) RSV RNA Qual (PCR) Blood Type Antibody Screen Crossmatch 04/05/20 04/05/20 04/05/20 05:20 05:20 08:05 WBC RBC Hgb Hct MCV MCH MCHC RDW Plt Count MPV Immature Gran % (Auto) Neut % (Auto) Lymph % (Auto) [place] % (Auto) Eos % (Auto) Baso % (Auto) Lymph # (Auto) [place] # (Auto) Eos # (Auto) Baso # (Auto) Abs Immat Gran (auto) Absolute Neuts (auto) Absolute Nucleated RBC Nucleated RBC % (auto) Smear Tech's Comments ESR PT INR APTT D-Dimer ABG pH ABG pCO2 ABG pO2 ABG HCO3 ABG O2 Saturation ABG Base Excess VBG pH 7.38 VBG pCO2 58 VBG pO2 64 VBG HCO3 34 VBG O2 Saturation 88.0 VBG Base Excess 8.8 Oxygen Given Sodium Potassium Chloride Carbon Dioxide Anion Gap BUN Creatinine Estim Creat Clear Calc Estimated GFR POC Glucose 118 H Random Glucose Osmolality Lactic Acid Lactic Acid Fup @ 2Hr Calcium Phosphorus Magnesium Total Bilirubin Direct Bilirubin AST ALT Alkaline Phosphatase Ammonia Lactate Dehydrogenase Total Creatine Kinase C-Reactive Protein B-Natriuretic Peptide Total Protein Albumin Procalcitonin 0.06 Urine Color Urine Appearance Urine pH Ur Specific [place] Urine Protein Urine Glucose (UA) Urine Ketones Urine Blood Urine Nitrite Ur Leukocyte Esterase Urine RBC Urine WBC Ur Squamous Epith Cells Urine Bacteria Urine Yeast Urine Osmolality U Random Total Protein Ur Random Sodium Urine Creatinine Nasal Screen MRSA (PCR) Nasal S. aureus Screen Nasal MRSA/S.aureus Interp Vancomycin Trough Urine Opiates Screen Acetaminophen Ur Barbiturates Screen Ur Phencyclidine Scrn Ur Amphetamines Screen U Benzodiazepines Scrn Urine Cocaine Screen U Marijuana (THC) Screen Ethyl Alcohol Coronavirus (PCR) COVID-19 ([facility]) COVID-19 Clin Com HIV 1&2 Ab/P24 Ag 4thGn Influenza Type A (PCR) Influenza Type B (PCR) RSV RNA Qual (PCR) Blood Type Antibody Screen Crossmatch 04/05/20 04/05/20 04/05/20 16:49 16:49 16:56 WBC RBC Hgb Hct MCV MCH MCHC RDW Plt Count MPV Immature Gran % (Auto) Neut % (Auto) Lymph % (Auto) [place] % (Auto) Eos % (Auto) Baso % (Auto) Lymph # (Auto) [place] # (Auto) Eos # (Auto) Baso # (Auto) Abs Immat Gran (auto) Absolute Neuts (auto) Absolute Nucleated RBC Nucleated RBC % (auto) Smear Tech's Comments ESR PT INR APTT D-Dimer ABG pH ABG pCO2 ABG pO2 ABG HCO3 ABG O2 Saturation ABG Base Excess VBG pH VBG pCO2 VBG pO2 VBG HCO3 VBG O2 Saturation VBG Base Excess Oxygen Given Sodium Potassium Chloride Carbon Dioxide Anion Gap BUN Creatinine Estim Creat Clear Calc Estimated GFR POC Glucose Random Glucose Osmolality Lactic Acid Lactic Acid Fup @ 2Hr Calcium Phosphorus Magnesium Total Bilirubin Direct Bilirubin AST ALT Alkaline Phosphatase Ammonia Lactate Dehydrogenase Total Creatine Kinase C-Reactive Protein B-Natriuretic Peptide Total Protein Albumin Procalcitonin 0.06 Urine Color Urine Appearance Urine pH Ur Specific [place] Urine Protein Urine Glucose (UA) Urine Ketones Urine Blood Urine Nitrite Ur Leukocyte Esterase Urine RBC Urine WBC Ur Squamous Epith Cells Urine Bacteria Urine Yeast Urine Osmolality U Random Total Protein Ur Random Sodium Urine Creatinine Nasal Screen MRSA (PCR) NEGATIVE Nasal S. aureus Screen NEGATIVE Nasal MRSA/S.aureus Interp SEE NOTE Vancomycin Trough Urine Opiates Screen Acetaminophen Ur Barbiturates Screen Ur Phencyclidine Scrn Ur Amphetamines Screen U Benzodiazepines Scrn Urine Cocaine Screen U Marijuana (THC) Screen Ethyl Alcohol Coronavirus (PCR) COVID-19 ([facility]) COVID-19 Clin Com HIV 1&2 Ab/P24 Ag 4thGn Nonreactive Influenza Type A (PCR) Influenza Type B (PCR) RSV RNA Qual (PCR) Blood Type Antibody Screen Crossmatch 04/06/20 04/06/20 04/06/20 00:09 05:30 05:30 WBC RBC Hgb Hct MCV MCH MCHC RDW Plt Count MPV Immature Gran % (Auto) Neut % (Auto) Lymph % (Auto) [place] % (Auto) Eos % (Auto) Baso % (Auto) Lymph # (Auto) [place] # (Auto) Eos # (Auto) Baso # (Auto) Abs Immat Gran (auto) Absolute Neuts (auto) Absolute Nucleated RBC Nucleated RBC % (auto) Smear Tech's Comments ESR PT 22.3 H INR 1.9 H APTT 41.2 H D-Dimer ABG pH ABG pCO2 ABG pO2 ABG HCO3 ABG O2 Saturation ABG Base Excess VBG pH VBG pCO2 VBG pO2 VBG HCO3 VBG O2 Saturation VBG Base Excess Oxygen Given Sodium 139 Potassium 4.1 Chloride 102 Carbon Dioxide 30 H Anion Gap 11 L BUN 10 Creatinine 0.84 Estim Creat Clear Calc 80.2 Estimated GFR > 60 POC Glucose Random Glucose 155 H Osmolality Lactic Acid Lactic Acid Fup @ 2Hr Calcium 8.7 Phosphorus Magnesium Total Bilirubin Direct Bilirubin AST ALT Alkaline Phosphatase Ammonia Lactate Dehydrogenase Total Creatine Kinase C-Reactive Protein B-Natriuretic Peptide Total Protein Albumin Procalcitonin Urine Color Urine Appearance Urine pH Ur Specific [place] Urine Protein Urine Glucose (UA) Urine Ketones Urine Blood Urine Nitrite Ur Leukocyte Esterase Urine RBC Urine WBC Ur Squamous Epith Cells Urine Bacteria Urine Yeast Urine Osmolality U Random Total Protein Ur Random Sodium Urine Creatinine Nasal Screen MRSA (PCR) Nasal S. aureus Screen Nasal MRSA/S.aureus Interp Vancomycin Trough 18.0 Urine Opiates Screen Acetaminophen Ur Barbiturates Screen Ur Phencyclidine Scrn Ur Amphetamines Screen U Benzodiazepines Scrn Urine Cocaine Screen U Marijuana (THC) Screen Ethyl Alcohol Coronavirus (PCR) COVID-19 ([facility]) COVID-19 Clin Com HIV 1&2 Ab/P24 Ag 4thGn Influenza Type A (PCR) Influenza Type B (PCR) RSV RNA Qual (PCR) Blood Type Antibody Screen Crossmatch 04/06/20 04/06/20 04/06/20 05:30 05:30 05:30 WBC RBC Hgb Hct MCV MCH MCHC RDW Plt Count MPV Immature Gran % (Auto) Neut % (Auto) Lymph % (Auto) [place] % (Auto) Eos % (Auto) Baso % (Auto) Lymph # (Auto) [place] # (Auto) Eos # (Auto) Baso # (Auto) Abs Immat Gran (auto) Absolute Neuts (auto) Absolute Nucleated RBC Nucleated RBC % (auto) Smear Tech's Comments ESR PT INR APTT D-Dimer ABG pH ABG pCO2 ABG pO2 ABG HCO3 ABG O2 Saturation ABG Base Excess VBG pH 7.41 VBG pCO2 65 VBG pO2 59 VBG HCO3 42 VBG O2 Saturation 88.0 VBG Base Excess 15.6 Oxygen Given Sodium Potassium Chloride Carbon Dioxide Anion Gap BUN Creatinine Estim Creat Clear Calc Estimated GFR POC Glucose Random Glucose Osmolality Lactic Acid Lactic Acid Fup @ 2Hr Calcium Phosphorus Magnesium Total Bilirubin Direct Bilirubin AST ALT Alkaline Phosphatase Ammonia 54 Lactate Dehydrogenase Total Creatine Kinase C-Reactive Protein B-Natriuretic Peptide Total Protein Albumin Procalcitonin 0.05 Urine Color Urine Appearance Urine pH Ur Specific [place] Urine Protein Urine Glucose (UA) Urine Ketones Urine Blood Urine Nitrite Ur Leukocyte Esterase Urine RBC Urine WBC Ur Squamous Epith Cells Urine Bacteria Urine Yeast Urine Osmolality U Random Total Protein Ur Random Sodium Urine Creatinine Nasal Screen MRSA (PCR) Nasal S. aureus Screen Nasal MRSA/S.aureus Interp Vancomycin Trough Urine Opiates Screen Acetaminophen Ur Barbiturates Screen Ur Phencyclidine Scrn Ur Amphetamines Screen U Benzodiazepines Scrn Urine Cocaine Screen U Marijuana (THC) Screen Ethyl Alcohol Coronavirus (PCR) COVID-19 ([facility]) COVID-19 Clin Com HIV 1&2 Ab/P24 Ag 4thGn Influenza Type A (PCR) Influenza Type B (PCR) RSV RNA Qual (PCR) Blood Type Antibody Screen Crossmatch 04/07/20 04/07/20 04/07/20 05:17 05:17 05:17 WBC 13.8 H RBC 2.69 L Hgb 8.9 L Hct 28.0 L MCV 104.1 H MCH 33.1 H MCHC 31.8 RDW 23.2 H Plt Count 55 L MPV 10.9 Immature Gran % (Auto) 1.1 H Neut % (Auto) 89.2 H Lymph % (Auto) 3.6 L [place] % (Auto) 5.9 Eos % (Auto) 0.1 Baso % (Auto) 0.1 Lymph # (Auto) 0.5 L [place] # (Auto) 0.8 Eos # (Auto) 0.0 Baso # (Auto) 0.0 Abs Immat Gran (auto) 0.15 H Absolute Neuts (auto) 12.3 H Absolute Nucleated RBC 0.000 Nucleated RBC % (auto) 0.0 Smear Tech's Comments VERIFIED ESR PT 23.9 H INR 2.0 H APTT 45.2 H D-Dimer ABG pH ABG pCO2 ABG pO2 ABG HCO3 ABG O2 Saturation ABG Base Excess VBG pH VBG pCO2 VBG pO2 VBG HCO3 VBG O2 Saturation VBG Base Excess Oxygen Given Sodium 137 Potassium 4.1 Chloride 102 Carbon Dioxide 28 Anion Gap 11 L BUN 9 Creatinine 0.81 Estim Creat Clear Calc 83.1 Estimated GFR > 60 POC Glucose Random Glucose 167 H Osmolality Lactic Acid Lactic Acid Fup @ 2Hr Calcium 8.9 Phosphorus 2.8 Magnesium 1.6 Total Bilirubin Direct Bilirubin AST ALT Alkaline Phosphatase Ammonia Lactate Dehydrogenase Total Creatine Kinase C-Reactive Protein B-Natriuretic Peptide Total Protein Albumin Procalcitonin Urine Color Urine Appearance Urine pH Ur Specific [place] Urine Protein Urine Glucose (UA) Urine Ketones Urine Blood Urine Nitrite Ur Leukocyte Esterase Urine RBC Urine WBC Ur Squamous Epith Cells Urine Bacteria Urine Yeast Urine Osmolality U Random Total Protein Ur Random Sodium Urine Creatinine Nasal Screen MRSA (PCR) Nasal S. aureus Screen Nasal MRSA/S.aureus Interp Vancomycin Trough Urine Opiates Screen Acetaminophen Ur Barbiturates Screen Ur Phencyclidine Scrn Ur Amphetamines Screen U Benzodiazepines Scrn Urine Cocaine Screen U Marijuana (THC) Screen Ethyl Alcohol Coronavirus (PCR) COVID-19 ([facility]) COVID-19 Clin Com HIV 1&2 Ab/P24 Ag 4thGn Influenza Type A (PCR) Influenza Type B (PCR) RSV RNA Qual (PCR) Blood Type Antibody Screen Crossmatch 04/07/20 04/07/20 04/08/20 05:17 05:17 06:46 WBC 11.6 H RBC 2.69 L Hgb 9.0 L Hct 27.2 L MCV 101.1 H MCH 33.5 H MCHC 33.1 RDW 23.3 H Plt Count 53 L MPV 11.1 Immature Gran % (Auto) 1.2 H Neut % (Auto) 85.7 H Lymph % (Auto) 5.6 L [place] % (Auto) 7.0 Eos % (Auto) 0.3 Baso % (Auto) 0.2 Lymph # (Auto) 0.7 L [place] # (Auto) 0.8 Eos # (Auto) 0.0 Baso # (Auto) 0.0 Abs Immat Gran (auto) 0.14 H Absolute Neuts (auto) 10.0 H Absolute Nucleated RBC 0.000 Nucleated RBC % (auto) 0.0 Smear Tech's Comments VERIFIED ESR PT INR APTT D-Dimer ABG pH ABG pCO2 ABG pO2 ABG HCO3 ABG O2 Saturation ABG Base Excess VBG pH 7.42 VBG pCO2 55 VBG pO2 59 VBG HCO3 36 VBG O2 Saturation 89.0 VBG Base Excess 11.2 Oxygen Given Sodium Potassium Chloride Carbon Dioxide Anion Gap BUN Creatinine Estim Creat Clear Calc Estimated GFR POC Glucose Random Glucose Osmolality Lactic Acid Lactic Acid Fup @ 2Hr Calcium Phosphorus Magnesium Total Bilirubin Direct Bilirubin AST ALT Alkaline Phosphatase Ammonia 39 Lactate Dehydrogenase Total Creatine Kinase C-Reactive Protein B-Natriuretic Peptide Total Protein Albumin Procalcitonin Urine Color Urine Appearance Urine pH Ur Specific [place] Urine Protein Urine Glucose (UA) Urine Ketones Urine Blood Urine Nitrite Ur Leukocyte Esterase Urine RBC Urine WBC Ur Squamous Epith Cells Urine Bacteria Urine Yeast Urine Osmolality U Random Total Protein Ur Random Sodium Urine Creatinine Nasal Screen MRSA (PCR) Nasal S. aureus Screen Nasal MRSA/S.aureus Interp Vancomycin Trough Urine Opiates Screen Acetaminophen Ur Barbiturates Screen Ur Phencyclidine Scrn Ur Amphetamines Screen U Benzodiazepines Scrn Urine Cocaine Screen U Marijuana (THC) Screen Ethyl Alcohol Coronavirus (PCR) COVID-19 ([facility]) COVID-19 Clin Com HIV 1&2 Ab/P24 Ag 4thGn Influenza Type A (PCR) Influenza Type B (PCR) RSV RNA Qual (PCR) Blood Type Antibody Screen Crossmatch 04/08/20 04/08/20 04/08/20 06:46 06:46 13:53 WBC RBC Hgb Hct MCV MCH MCHC RDW Plt Count MPV Immature Gran % (Auto) Neut % (Auto) Lymph % (Auto) [place] % (Auto) Eos % (Auto) Baso % (Auto) Lymph # (Auto) [place] # (Auto) Eos # (Auto) Baso # (Auto) Abs Immat Gran (auto) Absolute Neuts (auto) Absolute Nucleated RBC Nucleated RBC % (auto) Smear Tech's Comments ESR PT 25.7 H INR 2.1 H APTT 41.9 H D-Dimer ABG pH ABG pCO2 ABG pO2 ABG HCO3 ABG O2 Saturation ABG Base Excess VBG pH 7.47 H VBG pCO2 52 VBG pO2 46 VBG HCO3 39 VBG O2 Saturation 72.0 VBG Base Excess 13.9 Oxygen Given Sodium 134 L Potassium 4.2 Chloride 99 Carbon Dioxide 31 H Anion Gap 8 L BUN 9 Creatinine 0.64 Estim Creat Clear Calc 105.1 Estimated GFR > 60 POC Glucose Random Glucose 101 D Osmolality Lactic Acid Lactic Acid Fup @ 2Hr Calcium 8.5 Phosphorus 3.4 Magnesium 1.8 Total Bilirubin Direct Bilirubin AST ALT Alkaline Phosphatase Ammonia Lactate Dehydrogenase Total Creatine Kinase C-Reactive Protein B-Natriuretic Peptide Total Protein Albumin Procalcitonin Urine Color Urine Appearance Urine pH Ur Specific [place] Urine Protein Urine Glucose (UA) Urine Ketones Urine Blood Urine Nitrite Ur Leukocyte Esterase Urine RBC Urine WBC Ur Squamous Epith Cells Urine Bacteria Urine Yeast Urine Osmolality U Random Total Protein Ur Random Sodium Urine Creatinine Nasal Screen MRSA (PCR) Nasal S. aureus Screen Nasal MRSA/S.aureus Interp Vancomycin Trough Urine Opiates Screen Acetaminophen Ur Barbiturates Screen Ur Phencyclidine Scrn Ur Amphetamines Screen U Benzodiazepines Scrn Urine Cocaine Screen U Marijuana (THC) Screen Ethyl Alcohol Coronavirus (PCR) COVID-19 ([facility]) COVID-19 Clin Com HIV 1&2 Ab/P24 Ag 4thGn Influenza Type A (PCR) Influenza Type B (PCR) RSV RNA Qual (PCR) Blood Type Antibody Screen Crossmatch 04/08/20 04/08/20 04/09/20 16:03 20:00 06:25 WBC 11.2 H RBC 2.84 L Hgb 9.4 L Hct 29.2 L MCV 102.8 H MCH 33.1 H MCHC 32.2 RDW 23.7 H Plt Count 59 L MPV 10.5 Immature Gran % (Auto) 1.6 H Neut % (Auto) 83.9 H Lymph % (Auto) 6.5 L [place] % (Auto) 7.7 Eos % (Auto) 0.2 Baso % (Auto) 0.1 Lymph # (Auto) 0.7 L [place] # (Auto) 0.9 Eos # (Auto) 0.0 Baso # (Auto) 0.0 Abs Immat Gran (auto) 0.18 H Absolute Neuts (auto) 9.4 H Absolute Nucleated RBC 0.000 Nucleated RBC % (auto) 0.0 Smear Tech's Comments ESR PT INR APTT D-Dimer ABG pH ABG pCO2 ABG pO2 ABG HCO3 ABG O2 Saturation ABG Base Excess VBG pH VBG pCO2 VBG pO2 VBG HCO3 VBG O2 Saturation VBG Base Excess Oxygen Given Sodium Potassium Chloride Carbon Dioxide Anion Gap BUN Creatinine Estim Creat Clear Calc Estimated GFR POC Glucose 144 H 128 H Random Glucose Osmolality Lactic Acid Lactic Acid Fup @ 2Hr Calcium Phosphorus Magnesium Total Bilirubin Direct Bilirubin AST ALT Alkaline Phosphatase Ammonia Lactate Dehydrogenase Total Creatine Kinase C-Reactive Protein B-Natriuretic Peptide Total Protein Albumin Procalcitonin Urine Color Urine Appearance Urine pH Ur Specific [place] Urine Protein Urine Glucose (UA) Urine Ketones Urine Blood Urine Nitrite Ur Leukocyte Esterase Urine RBC Urine WBC Ur Squamous Epith Cells Urine Bacteria Urine Yeast Urine Osmolality U Random Total Protein Ur Random Sodium Urine Creatinine Nasal Screen MRSA (PCR) Nasal S. aureus Screen Nasal MRSA/S.aureus Interp Vancomycin Trough Urine Opiates Screen Acetaminophen Ur Barbiturates Screen Ur Phencyclidine Scrn Ur Amphetamines Screen U Benzodiazepines Scrn Urine Cocaine Screen U Marijuana (THC) Screen Ethyl Alcohol Coronavirus (PCR) COVID-19 ([facility]) COVID-19 Clin Com HIV 1&2 Ab/P24 Ag 4thGn Influenza Type A (PCR) Influenza Type B (PCR) RSV RNA Qual (PCR) Blood Type Antibody Screen Crossmatch 04/09/20 04/09/20 04/09/20 06:25 06:25 06:25 WBC RBC Hgb Hct MCV MCH MCHC RDW Plt Count MPV Immature Gran % (Auto) Neut % (Auto) Lymph % (Auto) [place] % (Auto) Eos % (Auto) Baso % (Auto) Lymph # (Auto) [place] # (Auto) Eos # (Auto) Baso # (Auto) Abs Immat Gran (auto) Absolute Neuts (auto) Absolute Nucleated RBC Nucleated RBC % (auto) Smear Tech's Comments ESR PT 26.2 H INR 2.2 H APTT 44.1 H D-Dimer ABG pH ABG pCO2 ABG pO2 ABG HCO3 ABG O2 Saturation ABG Base Excess VBG pH 7.49 H VBG pCO2 43 VBG pO2 49 VBG HCO3 33 VBG O2 Saturation 81.0 VBG Base Excess 9.3 Oxygen Given Sodium 134 L Potassium 4.5 Chloride 99 Carbon Dioxide 29 Anion Gap 11 L BUN 10 Creatinine 0.62 Estim Creat Clear Calc 109.1 Estimated GFR > 60 POC Glucose Random Glucose 125 H Osmolality Lactic Acid Lactic Acid Fup @ 2Hr Calcium 8.7 Phosphorus 3.2 Magnesium 1.8 Total Bilirubin Direct Bilirubin AST ALT Alkaline Phosphatase Ammonia Lactate Dehydrogenase Total Creatine Kinase C-Reactive Protein B-Natriuretic Peptide Total Protein Albumin Procalcitonin Urine Color Urine Appearance Urine pH Ur Specific [place] Urine Protein Urine Glucose (UA) Urine Ketones Urine Blood Urine Nitrite Ur Leukocyte Esterase Urine RBC Urine WBC Ur Squamous Epith Cells Urine Bacteria Urine Yeast Urine Osmolality U Random Total Protein Ur Random Sodium Urine Creatinine Nasal Screen MRSA (PCR) Nasal S. aureus Screen Nasal MRSA/S.aureus Interp Vancomycin Trough Urine Opiates Screen Acetaminophen Ur Barbiturates Screen Ur Phencyclidine Scrn Ur Amphetamines Screen U Benzodiazepines Scrn Urine Cocaine Screen U Marijuana (THC) Screen Ethyl Alcohol Coronavirus (PCR) COVID-19 (GIOVANI) COVID-19 Clin Com HIV 1&2 Ab/P24 Ag 4thGn Influenza Type A (PCR) Influenza Type B (PCR) RSV RNA Qual (PCR) Blood Type Antibody Screen Crossmatch 04/09/20 11:30 WBC RBC Hgb Hct MCV MCH MCHC RDW Plt Count MPV Immature Gran % (Auto) Neut % (Auto) Lymph % (Auto) [place] % (Auto) Eos % (Auto) Baso % (Auto) Lymph # (Auto) [place] # (Auto) Eos # (Auto) Baso # (Auto) Abs Immat Gran (auto) Absolute Neuts (auto) Absolute Nucleated RBC Nucleated RBC % (auto) Smear Tech's Comments ESR PT INR APTT D-Dimer ABG pH ABG pCO2 ABG pO2 ABG HCO3 ABG O2 Saturation ABG Base Excess VBG pH VBG pCO2 VBG pO2 VBG HCO3 VBG O2 Saturation VBG Base Excess Oxygen Given Sodium Potassium Chloride Carbon Dioxide Anion Gap BUN Creatinine Estim Creat Clear Calc Estimated GFR POC Glucose 172 H Random Glucose Osmolality Lactic Acid Lactic Acid Fup @ 2Hr Calcium Phosphorus Magnesium Total Bilirubin Direct Bilirubin AST ALT Alkaline Phosphatase Ammonia Lactate Dehydrogenase Total Creatine Kinase C-Reactive Protein B-Natriuretic Peptide Total Protein Albumin Procalcitonin Urine Color Urine Appearance Urine pH Ur Specific [place] Urine Protein Urine Glucose (UA) Urine Ketones Urine Blood Urine Nitrite Ur Leukocyte Esterase Urine RBC Urine WBC Ur Squamous Epith Cells Urine Bacteria Urine Yeast Urine Osmolality U Random Total Protein Ur Random Sodium Urine Creatinine Nasal Screen MRSA (PCR) Nasal S. aureus Screen Nasal MRSA/S.aureus Interp Vancomycin Trough Urine Opiates Screen Acetaminophen Ur Barbiturates Screen Ur Phencyclidine Scrn Ur Amphetamines Screen U Benzodiazepines Scrn Urine Cocaine Screen U Marijuana (THC) Screen Ethyl Alcohol Coronavirus (PCR) COVID-19 (GIOVANI) COVID-19 Clin Com HIV 1&2 Ab/P24 Ag 4thGn Influenza Type A (PCR) Influenza Type B (PCR) RSV RNA Qual (PCR) Blood Type Antibody Screen Crossmatch Discharge Plan Discharge Patient Disposition: Home Health Service Referrals: [facility] 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] - 1 Week (Please call and schedule a follow up appointment.) Physician,Unknown [Primary Care Provider] - Discharge Medications: Continued potassium chloride 20 mEq tablet,ER particles/crystals 40 meq PO DAILY RF: 0 folic acid 1 mg tablet 1 mg PO DAILY RF: 0 Xifaxan 550 mg tablet 550 mg PO BID RF: 0 thiamine HCl (vitamin B1) 100 mg tablet 100 mg PO DAILY RF: 0 calcium carbonate [Antacid Ext Str (calcium carb)] 300 mg (750 mg) tablet,chewable 1 tab PO TID PRN (Reason: Heartburn) RF: 0 Flovent HFA 220 mcg/actuation HFA aerosol inhaler 2 puff inhalation BID RF: 0 albuterol sulfate 90 mcg/actuation HFA aerosol inhaler 2 puff inhalation Q4H PRN (Reason: Shortness Of Breath) RF: 0 baclofen 10 mg tablet 10 mg PO QPM RF: 0 gabapentin 600 mg tablet 600 mg PO TID RF: 0 cetirizine 10 mg tablet 10 mg PO DAILY RF: 0 pyridoxine (vitamin B6) 50 mg tablet 50 mg PO DAILY RF: 0 metformin 750 mg tablet extended release 24 hr 750 mg PO BEDTIME RF: 0 glycerin (adult) Suppository 1 supp GA DAILY PRN (Reason: Constipation) RF: 0 spironolactone 25 mg Tablet 50 mg PO DAILY Qty: 30 RF: 0 lactulose 20 gram/30 mL Solution 30 g PO TID Qty: 240 RF: 0 torsemide 20 mg tablet 20 mg PO DAILY Qty: 30 RF: 0 Stiolto Respimat 2.5-2.5 mcg/actuation mist 2 puff inhalation DAILY RF: 0 Changed omeprazole 20 mg Capsule,Delayed Release(Dr/Ec) 20 mg PO DAILY Qty: 0 RF: 0 risperidone 1 mg tablet 1 mg PO BEDTIME Qty: 0 RF: 0 Discharge Orders: Discharge Order (Routine); Ordered 04/09/20 Ordered By: Tad Xiong Diet: diabetic diet and low fat, low cholesterol Activity on Discharge: As tolerated Stand Alone Forms: Patient Portal Discharge page Care Plan Goals: Take all medications as prescribed Health Concerns: Advanced liver disease/heroin use Plan of Treatment: Follow-up with gastroenterology and primary care physician
--- NOTE | 2020-04-09 13:27 | MHC.CM.PN ---
PATIENT IS DISCHARGED HOME TODAY WITH [facility]. IMM 04/08 IN CHART. RN AWARE OF PLAN.
--- NOTE | 2020-04-09 13:40 | MHC.CM.PN ---
PATIENT DISCHARGED PRIOR TO CASE MANAGEMENT ASSESSMENT
--- NOTE | 2020-04-09 14:18 | P.F2F_ITS ---
Service Date Service Date: 04/09/20 Encounter Date of encounter: 04/09/20 Reasons for Services Signs and symptoms assessed: History of chronic liver failure with recurrent episodes of encephalopathy, pneumonia, anemia thrombocytopenia Reason for mcfp: neurological assessment, medication treatment, teach disease management and GI/ assessment Homebound: Leaving the home is medically contraindicated at this time without the asist of a device and/or another person due th the listed conditions above and below. Reason homebound: weakness related to hospital stay Homebound supporting statement: Generalized weakness leg edema difficulty with ambulation, intermittent confusion. Certification: Based on the above findings, I certify that this patient is confined to the home and needs intermittent mcfp care, physical therapy and/or speech therapy, or continues to need occupational therapy. The patient is under my care, and I have initiated the establishment of the plan of care. The patient will be followed by a physician who will periodically review the plan of care.
--- NOTE | 2020-04-09 14:39 | MHC.CM.PN ---
[facility] TO TRANSPORT HOME FOR [employer] [facility] TO TRANSPORT WITH PATIENT. [facility] TO BE NOTIFIED THAT BAG WAS IN [place], AND SHOULD STAY WITH [facility] FOR DURATION OF TRANSPORT. IMM 04/08 IN CHART
[2020-04-10 06:07] LABS: Legionella Ag Urine Not Detected (Not Detected)
[2020-04-11 09:10] LABS: Prothrombin Time Whole Bld POC 12.1 sec (11.1-13.5)
== END 2020-04-09 16:30 | disposition home health service (06) | DRG 441 ==
LOC: HO.ED 21:20 → HO.EDOVER 22:26 → HO.IMC 03-30 14:15 → HO.ICU 03-30 16:59 → HO.S3 04-07 10:10
PROVIDERS: Anesthesiology; Internal Medicine; Internal Medicine Cardiovascular Disease; Internal Medicine Nephrology; Physician Assistant; Physician Assistant Medical; Admitting Provider Internal Medicine; Emergency Provider Emergency Medicine Emergency Medical Services; PCP Internal Medicine; Visit Provider Hospitalist
DX: K72.00 Acute and subacute hepatic failure without coma (principal); J80 Acute respiratory distress syndrome; E87.1 Hypo-osmolality and hyponatremia; D68.9 Coagulation defect, unspecified; N17.9 Acute kidney failure, unspecified; J95.84 Transfusion-related acute lung injury (TRALI); F05 Delirium due to known physiological condition; T82.7XXA Infection and inflammatory reaction due to other cardiac and vascular devices, implants and grafts, initial encounter; Y92.9 Unspecified place or not applicable; F17.210 Nicotine dependence, cigarettes, uncomplicated; Z91.14 Patient's other noncompliance with medication regimen; Z71.6 Tobacco abuse counseling; Z20.822 Contact with and (suspected) exposure to COVID-19; K70.30 Alcoholic cirrhosis of liver without ascites; D69.6 Thrombocytopenia, unspecified; F10.20 Alcohol dependence, uncomplicated; G89.29 Other chronic pain; Z88.2 Allergy status to sulfonamides; Z79.84 Long term (current) use of oral hypoglycemic drugs; Z79.899 Other long term (current) drug therapy
CPT/HCPCS: 0241U; 36415; 36600; 70450; 71045; 71250; 74176; 76705; 80048; 80051; 80053; 80076; 80202; 80307; 80320; 81001; 82140; 82550; 82803; 82947; 83605; 83615; 83735; 83880; 83930; 83935; 84100; 84145; 84156; 84300; 85025; 85379; 85610; 85652; 85730; 86140; 86850; 86900; 86901; 86920; 87040; 87086; 87088; 87186; 87389; 87449; 87635; 87640; 87641; 94002; 94003; 94640; 96365; 96375; 96376; 99232; 99285; 99291; C1758; G0480; J0696; J1100; J1940; J2060; J2185; J2250; J2370; J3370; J3430; J3475; P9016; P9047

== ENCOUNTER 2020-04-17 18:52 | Emergency (ER) | payer OTHER, SELFPAY ==
--- NOTE | 2020-04-17 19:06 | ED.ABDPAIN ---
HPI - Abdominal Pain General Chief Complaint: Abdominal Pain Stated Complaint: ABD PAIN X 18 HOURS Time Seen by Provider: 04/17/20 19:03 Source: patient Mode of arrival: EMS Limitations: no limitations History of Present Illness HPI narrative: Patient has history of chronic alcoholic cirrhosis with hepatic encephalopathy been here multiple times for altered mental status this time she comes here because since last night she noticed pain in the right upper quadrant with nausea no vomiting no fever no altered sensorium patient denied use of alcohol or heroin this time denies any significant distention of abdomen leg edema is getting better. No fever no chills no cough no significant shortness of breath patient complain of dry skin and itching do black stools patient has previous TIPS surgery, status post cholecystectomy MD elicited complaint: abdominal pain Pertinent past history: none Onset (ago): day(s) (2) Pain Consistency: constant Location: RUQ Severity: mild Quality: dull Radiation: none Migration to: no migration Exacerbating factors: nothing Relieving factors: nothing Associated symptoms: nausea Related Data Home Medications Medication Instructions Recorded Confirmed Xifaxan 550 mg PO BID 01/20/20 03/31/20 folic acid 1 mg PO DAILY 01/20/20 03/31/20 potassium chloride 40 meq PO DAILY 01/20/20 03/31/20 Flovent HFA 2 puff INHALATION BID 02/09/20 03/31/20 albuterol sulfate 2 puff INHALATION Q4H PRN 02/09/20 03/31/20 calcium carbonate [Antacid Ext Str 1 tab PO TID PRN 02/09/20 03/31/20 (calcium carb)] thiamine HCl (vitamin B1) 100 mg PO DAILY 02/09/20 03/31/20 baclofen 10 mg PO QPM 02/13/20 03/31/20 cetirizine 10 mg PO DAILY 02/19/20 03/31/20 gabapentin 600 mg PO TID 02/19/20 03/31/20 glycerin (adult) 1 supp MT DAILY PRN 02/19/20 03/31/20 metformin 750 mg PO BEDTIME 02/19/20 03/31/20 pyridoxine (vitamin B6) 50 mg PO DAILY 02/19/20 03/31/20 Stiolto Respimat 2 puff INHALATION DAILY 02/26/20 03/31/20 Previous Rx's Medication Instructions Recorded lactulose 30 g PO TID #240 ml 02/23/20 spironolactone 50 mg PO DAILY #30 tab 02/23/20 torsemide 20 mg PO DAILY #30 tab 02/23/20 omeprazole 20 mg PO DAILY #0 cap 04/09/20 risperidone 1 mg PO BEDTIME #0 tab 04/09/20 Allergies Allergy/AdvReac Type Severity Reaction Status Date / Time Iodinated Contrast Media Allergy Severe ANAPHYLAXIS Verified 04/17/20 19:11 [CONTRAST, IV] amoxicillin [AMOXICILLIN] Allergy Intermediate NAUSEA & Verified 04/17/20 19:11 VOMITING lamotrigine [From LAMICTAL] Allergy Intermediate RASH Verified 04/17/20 19:11 Sulfa (Sulfonamide Allergy Intermediate Rash Verified 04/17/20 19:11 Antibiotics) [SULFA (SULFONAMIDE ANTIBIOTICS)] sulfamethoxazole Allergy Intermediate Rash Verified 04/17/20 19:11 [From BACTRIM] trimethoprim [From BACTRIM] Allergy Intermediate Rash Verified 04/17/20 19:11 Review of Systems Review of Systems Constitutional : No Weight loss, No Fever, No Chills ENT/Mouth : No sore throat, No Rhinorrhea Eyes: No Eye Pain, No Swelling Cardiovascular : No Chest Pain, no palpitations Respiratory : No Cough, No Sputum, no shortness of breath Gastrointestinal : + Nausea, No Vomiting, No Diarrhea, + abdominal Pain, no black stools Genitourinary : No Dysuria, No Urinary Frequency Musculoskeletal : No joint pain, No Myalgias, No Joint Swelling Skin : No Skin Lesions, No rash Neuro : No Weakness, No Numbness, No Dizziness, No Headache Psych : No Anxiety/Panic, No Depression Heme/Lymph: No Bruising, No Lymphadenopathy Endocrine : No Polyuria, No Polydipsia All other systems reviewed and are negative Physical Exam Vital Signs: Vital Signs: Last Vital Signs Temp 98.1 F 04/17/20 19:11 Pulse 90 04/17/20 19:11 Resp 18 04/17/20 19:11 BP 119/51 L 04/17/20 19:11 Pulse Ox 99 04/17/20 19:11 Body Mass Index 36.7 Const: General: comfortable, no acute distress, well developed, alert and awake Nutritional Appearance: average body habitus and obese Orientation/consciousness: patient oriented x3 Limitations: no limitations HENMT: Head: Yes normocephalic and Yes atraumatic Ears: hearing grossly normal bilaterally General nose exam: Normal external nose present Mouth: Normal oral and palatal mucosa present Throat: Yes posterior oropharynx normal Eyes: Conjunctivae: conjunctivae normal Sclerae: scleral abnormal (Icterus++) Neck: Neck: Yes normal visual inspection Thyroid: Thyroid normal Chest: Chest palpation & inspection: normal inspection of the chest and normal palpation of entire chest wall Resp: Effort & Inspection: normal respiratory effort Auscultation: clear to auscultation bilaterally, no crackles, no rales and no rhonchi Cardio: Rate: regular rate Rhythm: regular rhythm Heart sounds: S1 normal heart sound present and S2 normal heart sound present Peripheral pulses: Peripheral pulses 2+ throughout GI: Inspection: Yes normal to inspection Palpation (GI): Soft to palpation, Tenderness to palpation present (GI) in the RUQ; Issa's sign negative, no guarding and Ascites present (moderate) Percussion: Yes dullness to percussion Auscultation: normal bowel sounds : General: Yes no CVA tenderness Back/Spine/Pelvis: Back: no CVA tenderness Thoracic/Lumbar Spine: thoracic and lumbar spine normal to inspection Skin: General skin exam: dry skin, jaundice and pallor Neuro: General: patient oriented x3, moves all extremities, no focal motor deficits and CN's II-XI intact bilaterally Extrem: General: Yes full ROM, Yes no calf tenderness and Yes pedal edema (3+) MDM - Abdominal Pain MDM Narrative Medical decision making narrative: Patient with chronic alcoholic cirrhosis with chronic abdominal pain workup showed stable labs slightly elevated ammonia level but patient alert oriented x3 without any encephalopathy findings patient does have lactulose at home will give extra lactulose here and discharged home advised to follow with incident response engineer Differential Diagnosis Differential diagnosis: Likely abdominal pain Medical Records Attestation: I reviewed the patient's medical records. Lab Data Attestation: I reviewed the patient's lab results. Result diagrams: 04/17/20 19:36 04/17/20 19:36 Labs: Lab Results 04/17/20 04/17/20 04/17/20 Range/Units 19:36 19:36 19:36 WBC 11.3 H (4.8-10.8) X10*3/uL RBC 2.46 L (4.20-5.50) X10*6/uL Hgb 8.4 L (12.0-16.0) g/dl Hct 25.0 L (37-47) % MCV 101.6 H (80-98) fL MCH 34.1 H (27.0-33.0) pg MCHC 33.6 (31.0-35.0) g/dl RDW 21.7 H (11.0-16.0) % Plt Count 60 L (160-400) X10*3/uL MPV 10.6 (9.4-12.3) fL Immature Gran % (Auto) 0.4 (0.0-0.4) % Neut % (Auto) 79.4 H (45-73) % Lymph % (Auto) 8.2 L (20-40) % [place] % (Auto) 9.3 (2-11) % Eos % (Auto) 2.6 (0-4) % Baso % (Auto) 0.1 (0-2) % Lymph # (Auto) 0.9 L (1.2-4.9) X10*3/uL [place] # (Auto) 1.1 (0.1-1.2) X10*3/uL Eos # (Auto) 0.3 (0.0-0.4) X10*3/uL Baso # (Auto) 0.0 (0.0-0.2) X10*3/uL Abs Immat Gran (auto) 0.05 H (0.00-0.03) X10*3/uL Absolute Neuts (auto) 9.0 H (2.0-8.3) X10*3/uL Absolute Nucleated RBC 0.000 (0.0-0.012) X10*3/uL Nucleated RBC % (auto) 0.0 (0.0-0.2) /100WBC PT 25.6 H (10.8-13.0) SEC INR 2.1 H (0.9-1.1) Sodium (135-145) mmol/L Potassium (3.3-5.1) mmol/L Chloride (96-108) mmol/L Carbon Dioxide (22-29) mmol/L Anion Gap (12-20) BUN (9-16) mg/dL Creatinine (0.5-1.4) mg/dL Estim Creat Clear Calc Estimated GFR Random Glucose (60-115) mg/dL Calcium (8.4-10.2) mg/dL Total Bilirubin (0.0-1.0) mg/dL Direct Bilirubin (0.0-0.5) mg/dL AST (5-31) U/L ALT (0-31) U/L Alkaline Phosphatase (39-117) U/L Ammonia 88 H (13-55) umol/L Total Protein (6.5-8.0) g/dL Albumin (3.5-5.0) g/dL Lipase (8-78) U/L 04/17/20 Range/Units 19:36 WBC (4.8-10.8) X10*3/uL RBC (4.20-5.50) X10*6/uL Hgb (12.0-16.0) g/dl Hct (37-47) % MCV (80-98) fL MCH (27.0-33.0) pg MCHC (31.0-35.0) g/dl RDW (11.0-16.0) % Plt Count (160-400) X10*3/uL MPV (9.4-12.3) fL Immature Gran % (Auto) (0.0-0.4) % Neut % (Auto) (45-73) % Lymph % (Auto) (20-40) % [place] % (Auto) (2-11) % Eos % (Auto) (0-4) % Baso % (Auto) (0-2) % Lymph # (Auto) (1.2-4.9) X10*3/uL [place] # (Auto) (0.1-1.2) X10*3/uL Eos # (Auto) (0.0-0.4) X10*3/uL Baso # (Auto) (0.0-0.2) X10*3/uL Abs Immat Gran (auto) (0.00-0.03) X10*3/uL Absolute Neuts (auto) (2.0-8.3) X10*3/uL Absolute Nucleated RBC (0.0-0.012) X10*3/uL Nucleated RBC % (auto) (0.0-0.2) /100WBC PT (10.8-13.0) SEC INR (0.9-1.1) Sodium 131 L (135-145) mmol/L Potassium 3.8 (3.3-5.1) mmol/L Chloride 92 L (96-108) mmol/L Carbon Dioxide 32 H (22-29) mmol/L Anion Gap 11 L (12-20) BUN 7 L (9-16) mg/dL Creatinine 0.79 (0.5-1.4) mg/dL Estim Creat Clear Calc 86.4 Estimated GFR > 60 Random Glucose 142 H (60-115) mg/dL Calcium 7.8 L D (8.4-10.2) mg/dL Total Bilirubin 8.0 H (0.0-1.0) mg/dL Direct Bilirubin 4.4 H (0.0-0.5) mg/dL AST 47 H D (5-31) U/L ALT 28 (0-31) U/L Alkaline Phosphatase 157 H (39-117) U/L Ammonia (13-55) umol/L Total Protein 4.9 L (6.5-8.0) g/dL Albumin 2.1 L (3.5-5.0) g/dL Lipase 40 (8-78) U/L Discharge Plan Discharge Clinical Impression: Advanced hepatic cirrhosis Patient Disposition: Home, Self-Care Instructions: Cirrhosis (ED) Additional Instructions: Continue her lactulose and other medication as prescribed and follow-up with incident response engineer Prescriptions: No Action potassium chloride 20 mEq tablet,ER particles/crystals 40 meq PO DAILY RF: 0 folic acid 1 mg tablet 1 mg PO DAILY RF: 0 Xifaxan 550 mg tablet 550 mg PO BID RF: 0 thiamine HCl (vitamin B1) 100 mg tablet 100 mg PO DAILY RF: 0 calcium carbonate [Antacid Ext Str (calcium carb)] 300 mg (750 mg) tablet,chewable 1 tab PO TID PRN (Reason: Heartburn) RF: 0 Flovent HFA 220 mcg/actuation HFA aerosol inhaler 2 puff inhalation BID RF: 0 albuterol sulfate 90 mcg/actuation HFA aerosol inhaler 2 puff inhalation Q4H PRN (Reason: Shortness Of Breath) RF: 0 baclofen 10 mg tablet 10 mg PO QPM RF: 0 gabapentin 600 mg tablet 600 mg PO TID RF: 0 cetirizine 10 mg tablet 10 mg PO DAILY RF: 0 pyridoxine (vitamin B6) 50 mg tablet 50 mg PO DAILY RF: 0 metformin 750 mg tablet extended release 24 hr 750 mg PO BEDTIME RF: 0 glycerin (adult) Suppository 1 supp MT DAILY PRN (Reason: Constipation) RF: 0 spironolactone 25 mg Tablet 50 mg PO DAILY Qty: 30 RF: 0 lactulose 20 gram/30 mL Solution 30 g PO TID Qty: 240 RF: 0 torsemide 20 mg tablet 20 mg PO DAILY Qty: 30 RF: 0 omeprazole 20 mg Capsule,Delayed Release(Dr/Ec) 20 mg PO DAILY Qty: 0 RF: 0 risperidone 1 mg tablet 1 mg PO BEDTIME Qty: 0 RF: 0 Stiolto Respimat 2.5-2.5 mcg/actuation mist 2 puff inhalation DAILY RF: 0 Interventions: ED Discharge Assessment Last Done: 04/17/20 21:46 Discharge Date/Time: 04/17/20 21:55 [facility] Past Medical History Medical History (Updated 04/17/20 @ 21:39 by Earle Abbasi MD) Anemia Anxiety Chronic back pain Chronic hyponatremia Cirrhosis Coagulopathy Congestive heart failure COPD (chronic obstructive pulmonary disease) Depression Diabetes 1.5, managed as type 2 Hyponatremia Liver disease Pneumonia PTSD (post-traumatic stress disorder) Thrombocytopenia Surgical History History of cholecystectomy Previous back surgery S/P TIPS (transjugular intrahepatic portosystemic shunt) Family History Family History Other HTN (hypertension) Social History Social History Household Members: Unknown / Unable to assess Housing: Unknown / Unable to assess Alcohol intake: former Smoking Status: Current every day smoker Tobacco Type: Cigarette Packs Per Day: 0.5 Cigarettes Per Day: 10.0 Years Smoked: 40 Second Hand Smoke Exposure: No Use of substances other than those prescribed or required for medical reasons: Yes Substance Use Type: Heroin and Marijuana Advance Directives: No Advance Directives Information Provided: Yes service: No Current occupational status: unemployed
[2020-04-17 19:11] VITALS: BP 108/42; BP 119/51; PULSE 90; PULSE 98; RESP 18; TEMP 36.7; O2SAT 97; O2SAT 99; BMI 36.7
--- NOTE | 2020-04-17 19:19 | XR_ITS ---
EXAMINATION: XR CHEST CLINICAL INFORMATION: Chest pain. COMPARISON: CT chest 04/07/2020 TECHNIQUE: Frontal view of the chest was obtained. FINDINGS: There are lungs are expanded patchy reticular opacities seen throughout both lungs likely from known inflammatory process as noted on the CT chest 04/09/2020. No confluent infiltrate or pleural effusion seen. The heart size and pulmonary vascularity is normal. No gross bony abnormality seen. XR/XR chest 1V IMPRESSION: Diffuse bilateral reticular interstitial opacities suggestive of underlying inflammatory or infectious process similar to CT chest exam 04/09/2020
--- NOTE | 2020-04-17 19:38 | PC.NURSE ---
iv inserted, labs drawn, pt requesting medication for pain, will notify provider
[2020-04-17 19:43] LABS: Basophils Percent Auto 0.1 % (0-2); Eosinophils Absolute Auto 0.3 X10*3/uL (0.0-0.4); Eosinophils Percent Auto 2.6 % (0-4); Hemoglobin 8.4 g/dl (12.0-16.0); Imm Gran Abs Auto 0.05 X10*3/uL (0.00-0.03); Imm Gran Pct Auto 0.4 % (0.0-0.4); Lymphocytes Absolute Auto 0.9 X10*3/uL (1.2-4.9); Lymphocytes Percent Auto 8.2 % (20-40); MANUAL DIFF FLAG NO; Mean Corpuscular HGB Conc 33.6 g/dl (31.0-35.0); Mean Corpuscular Hemoglobin 34.1 pg (27.0-33.0); Mean Corpuscular Volume 101.6 fL (80-98); Mean Platelet Volume 10.6 fL (9.4-12.3); Monocytes Absolute Auto 1.1 X10*3/uL (0.1-1.2); Monocytes Percent Auto 9.3 % (2-11); Neutrophils Percent Auto 79.4 % (45-73); Red Blood Count 2.46 X10*6/uL (4.20-5.50); Red Cell Distribution Width 21.7 % (11.0-16.0); White Blood Count 11.3 X10*3/uL (4.8-10.8)
[2020-04-17 19:45] LABS: Platelet Count 60 X10*3/uL (160-400)
[2020-04-17 19:57] LABS: Ammonia 88 umol/L (13-55)
[2020-04-17] MEDS: Morphine Sulfate 2 MG/ML CARTRIDGE IVPUSH (19:58)
[2020-04-17] MEDS: ondansetron HCL 4 MG/2 ML VIAL IVPUSH (19:58)
--- NOTE | 2020-04-17 19:58 | PC.NURSE ---
pt medicated per order
[2020-04-17 20:00] LABS: INTERNATIONAL NORM RATIO 2.1 (0.9-1.1); Prothrombin Time 25.6 SEC (10.8-13.0)
[2020-04-17 20:11] LABS: Alanine Aminotransferase 28 U/L (0-31); Albumin Level 2.1 g/dL (3.5-5.0); Alkaline Phosphatase 157 U/L (39-117); Anion Gap 11 (12-20); Aspartate Amino Transferase 47 U/L (5-31); Bilirubin Direct 4.4 mg/dL (0.0-0.5); Blood Urea Nitrogen 7 mg/dL (9-16); Calcium 7.8 mg/dL (8.4-10.2); Carbon Dioxide 32 mmol/L (22-29); Chloride 92 mmol/L (96-108); Creatinine Clr Calc Pharmacy 86.4; Estimated Glomerular Filt Rate > 60; Glucose Random 142 mg/dL (60-115); Lipase 40 U/L (8-78); Potassium 3.8 mmol/L (3.3-5.1); Sodium 131 mmol/L (135-145); Total Protein 4.9 g/dL (6.5-8.0)
[2020-04-17] MEDS: Lactulose 20 GM/30 ML SOLUTION PO (21:50)
--- NOTE | 2020-04-17 21:54 | PC.NURSE ---
patient medicated per order, iv removed and pt is being discharged to home
== END 2020-04-17 21:55 | disposition home or self-care (01) ==
PROVIDERS: Emergency Provider Internal Medicine
DX: K74.60 Unspecified cirrhosis of liver (principal); R10.11 Right upper quadrant pain; F17.210 Nicotine dependence, cigarettes, uncomplicated; Z79.899 Other long term (current) drug therapy; Z71.6 Tobacco abuse counseling
CPT/HCPCS: 36415; 71045; 80048; 80076; 82140; 83690; 85025; 85610; 96374; 96375; 99284; J2270; J2405

== ENCOUNTER 2020-04-17 23:45 | Emergency (ER) | payer OTHER, SELFPAY ==
--- NOTE | 2020-04-18 00:36 | US_ITS ---
EXAMINATION: US ABDOMEN LIMITED CLINICAL INFORMATION: Abdominal pain, question ascites COMPARISON: 04/04/2020 CT TECHNIQUE: Real-time imaging of the 4 quadrants of the abdomen to assess for ascites FINDINGS: Small amount of ascites is visible in the right upper quadrant and left lower quadrant. Trace ascites is noted in the right lower quadrant. No fluid is seen in the left upper quadrant. US/US abdomen limited IMPRESSION: Small volume ascites.
[2020-04-18 00:44] VITALS: BP 148/67; PULSE 99; RESP 20; TEMP 36.6; O2SAT 99; BMI 36.7
--- NOTE | 2020-04-18 03:39 | PC.NURSE ---
patient coming up to the nurses station, stating she did not want to wait for results and removed herself from the treatment area, seen by staff sitting in the waiting room awaiting a ride.
--- NOTE | 2020-04-18 03:56 | ED.ABDPAIN ---
HPI - Abdominal Pain General Chief Complaint: Abdominal Pain Stated Complaint: abd pain/nausea Time Seen by Provider: 04/18/20 00:26 Source: patient Mode of arrival: ambulatory History of Present Illness HPI narrative: This is a 55-year-old female who was evaluated for abdominal discomfort earlier in the day without associated fever, chills and now re-presented with similar concerns that she describes as ?the same?. She denies nausea, vomiting, and states she is compliant with all her medications. Related Data Home Medications Medication Instructions Recorded Confirmed Xifaxan 550 mg PO BID 01/20/20 04/18/20 folic acid 1 mg PO DAILY 01/20/20 04/18/20 potassium chloride 40 meq PO DAILY 01/20/20 04/18/20 Flovent HFA 2 puff INHALATION BID 02/09/20 04/18/20 albuterol sulfate 2 puff INHALATION Q4H PRN 02/09/20 04/18/20 calcium carbonate [Antacid Ext Str 1 tab PO TID PRN 02/09/20 04/18/20 (calcium carb)] thiamine HCl (vitamin B1) 100 mg PO DAILY 02/09/20 04/18/20 baclofen 10 mg PO BID 02/13/20 04/18/20 cetirizine 10 mg PO DAILY 02/19/20 04/18/20 metformin 750 mg PO DAILY@1700 02/19/20 04/18/20 pyridoxine (vitamin B6) 50 mg PO DAILY 02/19/20 04/18/20 Stiolto Respimat 2 puff INHALATION DAILY 02/26/20 04/18/20 acetaminophen 500 mg PO Q6H PRN 04/18/20 04/18/20 buprenorphine 1 patch TRANSDERMAL QWEEK 04/18/20 04/18/20 cholecalciferol (vitamin D3) 50 mcg PO DAILY 04/18/20 04/18/20 [Vitamin D3] docusate sodium 100 mg PO BID PRN 04/18/20 04/18/20 gabapentin 300 mg PO TID 04/18/20 04/18/20 magnesium oxide 400 mg PO BID 04/18/20 04/18/20 omeprazole 20 mg PO BID@0630,1630 04/18/20 04/18/20 risperidone 1 mg PO BID 04/18/20 04/18/20 spironolactone 25 mg PO DAILY 04/18/20 04/18/20 torsemide 40 mg PO DAILY 04/18/20 04/18/20 Previous Rx's Medication Instructions Recorded lactulose 30 g PO TID #240 ml 02/23/20 Allergies Allergy/AdvReac Type Severity Reaction Status Date / Time Iodinated Contrast Media Allergy Severe ANAPHYLAXIS Verified 04/18/20 00:44 [CONTRAST, IV] amoxicillin [AMOXICILLIN] Allergy Intermediate NAUSEA & Verified 04/18/20 00:44 VOMITING lamotrigine [From LAMICTAL] Allergy Intermediate RASH Verified 04/18/20 00:44 Sulfa (Sulfonamide Allergy Intermediate Rash Verified 04/18/20 00:44 Antibiotics) [SULFA (SULFONAMIDE ANTIBIOTICS)] sulfamethoxazole Allergy Intermediate Rash Verified 04/18/20 00:44 [From BACTRIM] trimethoprim [From BACTRIM] Allergy Intermediate Rash Verified 04/18/20 00:44 Review of Systems Review of Systems Pertinent positives and negatives as stated in HPI 10 point review systems is otherwise negative. Physical Exam Vital Signs: Vital Signs: Last Vital Signs Temp 97.9 F 04/18/20 00:44 Pulse 99 04/18/20 00:44 Resp 20 04/18/20 00:44 BP 148/67 H 04/18/20 00:44 Pulse Ox 99 04/18/20 00:44 Body Mass Index 36.7 VITAL SIGNS: Reviewed. GENERAL: Well developed, well nourished, in no acute distress. HEAD: Normocephalic/atraumatic, EYES: PERRLA, EOMI +icterus noted OROPHARYNX: no oral lesions noted, posterior pharynx clear NECK: Supple, no adenopathy LUNGS: Normal breath sounds. SpO2<99> CARDIOVASCULAR: Regular rate and rhythm without noted murmurs ABDOMEN: Obese, Soft, tenderness right upper quadrant, non-distended with bowel sounds MUSCULOSKELETAL: No tenderness, deformities, or effusions noted on gross inspection. EXTREMITIES: No cyanosis, clubbing or edema. SKIN: Inspection of the skin reveals no rashes, but +jaundice NEUROLOGIC: Alert and oriented x 4, negative asterixis Course Course Course Narrative: This is a 55-year-old female with history and clinical presentation consistent with advanced cirrhosis and no evidence of confusion at this time although on prior evaluation earlier in the day she was noted to have a mildly elevated ammonia level of 88 and at that time had been encouraged to continue with her lactulose. Patient states that she has all medication at home that she takes with exception of lactulose, she is noted to be afebrile and there is no evidence of SBP on clinical exam. All investigations were reviewed without any acute findings. Results discussed with the patient and she was again strongly encouraged to continue with her lactulose and provided with criteria for returning to the emergency department. Discharge Plan Discharge Clinical Impression: Advanced hepatic cirrhosis Patient Disposition: Elopement Prescriptions: No Action potassium chloride 20 mEq tablet,ER particles/crystals 40 meq PO DAILY RF: 0 folic acid 1 mg tablet 1 mg PO DAILY RF: 0 Xifaxan 550 mg tablet 550 mg PO BID RF: 0 thiamine HCl (vitamin B1) 100 mg tablet 100 mg PO DAILY RF: 0 calcium carbonate [Antacid Ext Str (calcium carb)] 300 mg (750 mg) tablet,chewable 1 tab PO TID PRN (Reason: Heartburn) RF: 0 Flovent HFA 220 mcg/actuation HFA aerosol inhaler 2 puff inhalation BID RF: 0 albuterol sulfate 90 mcg/actuation HFA aerosol inhaler 2 puff inhalation Q4H PRN (Reason: Shortness Of Breath) RF: 0 baclofen 10 mg tablet 10 mg PO BID RF: 0 cetirizine 10 mg tablet 10 mg PO DAILY RF: 0 pyridoxine (vitamin B6) 50 mg tablet 50 mg PO DAILY RF: 0 metformin 750 mg tablet extended release 24 hr 750 mg PO DAILY@1700 RF: 0 lactulose 20 gram/30 mL Solution 30 g PO TID Qty: 240 RF: 0 Stiolto Respimat 2.5-2.5 mcg/actuation mist 2 puff inhalation DAILY RF: 0 buprenorphine 5 mcg/hour Patch Weekly 1 patch TRANSDERMAL QWEEK RF: 0 torsemide 20 mg tablet 40 mg PO DAILY RF: 0 acetaminophen 500 mg Tablet 500 mg PO Q6H PRN (Reason: Pain (Scale Score 1-3)) RF: 0 cholecalciferol (vitamin D3) [Vitamin D3] 50 mcg (2,000 unit) Capsule 50 mcg PO DAILY RF: 0 spironolactone 25 mg tablet 25 mg PO DAILY RF: 0 omeprazole 20 mg capsule,delayed release(DR/EC) 20 mg PO BID@0630,1630 RF: 0 gabapentin 300 mg Capsule 300 mg PO TID RF: 0 magnesium oxide 400 mg magnesium Tablet 400 mg PO BID RF: 0 docusate sodium 100 mg Capsule 100 mg PO BID PRN (Reason: Constipation) RF: 0 risperidone 1 mg tablet 1 mg PO BID RF: 0 Discharge Date/Time: 04/18/20 03:52 [facility] Past Medical History Source: nursing notes reviewed Medical History Abnormal CT scan, gastrointestinal tract Anemia Anxiety Chronic back pain Chronic hyponatremia Cirrhosis Coagulopathy Congestive heart failure COPD (chronic obstructive pulmonary disease) Depression Diabetes 1.5, managed as type 2 Hyponatremia Liver disease Pneumonia PTSD (post-traumatic stress disorder) Thrombocytopenia Surgical History History of cholecystectomy Previous back surgery S/P TIPS (transjugular intrahepatic portosystemic shunt) Family History Family History Other HTN (hypertension) Social History Social History Household Members: Significant Other Housing: House Alcohol intake: former Smoking Status: Former smoker Tobacco Type: Cigarette Packs Per Day: 0.5 Cigarettes Per Day: 10.0 Years Smoked: 40 Second Hand Smoke Exposure: No Use of substances other than those prescribed or required for medical reasons: Unknown Substance Use Type: Heroin and Marijuana Have you been hit, kicked, punched, or otherwise hurt by someone within the past year? If so, by whom?: No Do you feel safe in your current relationship?: Yes Is there a partner from a previous relationship who is making you feel unsafe now?: No Are you made to feel afraid or neglected: No Advance Directives: No Advance Directives Information Provided: Yes Do you have thoughts of harming others: None Do you have a plan to hurt others: No Plan Recently lost weight without trying: No service: No Current occupational status: unemployed
== END 2020-04-18 03:52 | disposition left against medical advice (07) ==
PROVIDERS: Emergency Provider Emergency Medicine; PCP Nurse Practitioner
DX: K74.60 Unspecified cirrhosis of liver (principal); E11.9 Type 2 diabetes mellitus without complications; I50.9 Heart failure, unspecified; Z79.899 Other long term (current) drug therapy
CPT/HCPCS: 76705; 99284

== ENCOUNTER 2020-04-18 10:24 | Inpatient (IN) | payer OTHER, SELFPAY ==
--- NOTE | 2020-04-18 | XR_ITS ---
EXAMINATION: ABDOMEN 2 VIEWS CLINICAL INFORMATION: Abdominal pain. COMPARISON: 04/04/2020. TECHNIQUE: Supine and upright views of the abdomen are provided. FINDINGS: There are no dilated loops of small bowel. There is a moderate amount of stool throughout the colon. A TIPS is in place. There are no air-fluid levels. There is no appendicolith. The visualized lung bases are clear. The osseous structures are stable with spinal fusion hardware intact. XR/XR abdomen min 2V IMPRESSION: No evidence for obstruction. Moderate amount of stool throughout the colon.
--- NOTE | ~2020-04-18 | US_ITS ---
EXAMINATION: US ABDOMEN LIMITED CLINICAL INFORMATION: Evaluate TIPS patency.. COMPARISON: Ultrasound abdomen 04/18/2020 TECHNIQUE: Real-time imaging of the right upper quadrant abdominal viscera. FINDINGS: The exam is nondiagnostic. Not able to visualize liver due to presence of rib shadow, bowel gas and patient discomfort US/US abdomen limited IMPRESSION: Nondiagnostic ultrasound right upper quadrant.
--- NOTE | 2020-04-18 10:36 | CT_ITS ---
EXAMINATION: CT ABDOMEN AND PELVIS WITHOUT CONTRAST CLINICAL INFORMATION: Right upper quadrant pain COMPARISON: Previous limited abdominal ultrasound from earlier the same day and CT of the pelvis 04/04/2020 TECHNIQUE: Multidetector volumetric imaging was performed from the superior aspect of the liver through the pubic symphysis. Sagittal and coronal reformatted images were obtained on the technologist's workstation. This CT examination was performed using dose optimization techniques as appropriate, variously including the following: *Automated exposure control *Adjustment of mA and/or kV according to patient size (this includes techniques or standardized protocols for targeted exams where dose is matched to indication/reason for exam; i.e. extremities or head) *Use of iterative reconstruction technique DLP: 1247 mGy-cm FINDINGS: LUNG BASES: The visualized lung bases are unremarkable. LIVER, GALLBLADDER, AND BILIARY TREE: The liver is cirrhotic. There is a tips shunt seen in the right lobe of the liver. No focal liver lesion is seen. The gallbladder has been removed. There is no biliary duct dilatation. There is a small amount of ascites. PANCREAS: Unremarkable. SPLEEN: Unremarkable. ADRENAL GLANDS: Unremarkable. KIDNEYS AND URETERS: The kidneys are normal in size, shape, and attenuation. No hydronephrosis, hydroureter, or calculi seen. No perinephric stranding. BLADDER: Unremarkable. GASTROINTESTINAL TRACT: There is stool throughout the colon and mild dilatation of the colon suggestive of constipation. There are fluid-filled loops of small bowel. The appendix is not identified. There is a high attenuation in the region of the lesser curvature of the stomach that is stable, question representing previous surgery or possibly vessel embolization. There is a small amount of ascites. There is a small focus of air seen in the ascitic fluid in the right upper quadrant. This may represent partial by averaging with the bowel axial image 27 series 3, coronal constructed image 23 sagittal reconstructed image 104. ABDOMINAL WALL: There is diffuse subcutaneous edema or anasarca. LYMPH NODES: There is shotty retroperitoneal lymphadenopathy in the abdomen and pelvis. There are prominent bilateral inguinal lymph nodes. This appears unchanged. VASCULAR: Unremarkable. PELVIC VISCERA: Unremarkable. OSSEOUS STRUCTURES: There are postsurgical changes to the L4-L5 and L5-S1 disc spaces. There is posterior fusion hardware and interpedicular screws at L4 and S1. There is severe degenerative disc disease at L2-L3. CT/CT abdomen pelvis wo con IMPRESSION: Cirrhotic-appearing liver. Small amount of ascites. There is a small focus of air seen in the ascitic fluid in the right upper quadrant, question representing partial volume averaging with a loop of small bowel containing air. Possible small amount of free intraperitoneal air cannot be excluded and follow-up should be considered if clinically indicated. Stool throughout the colon and slightly dilated colon suggestive of constipation. Fluid-filled loops of small bowel. Anasarca. Stable postsurgical changes to the lower lumbar spine.
[2020-04-18 10:41] VITALS: BP 110/55; PULSE 97; RESP 16; TEMP 36.1; O2SAT 98; BMI 40.0
--- NOTE | 2020-04-18 10:41 | ED_ITS ---
HPI - Altered Mental Status General Chief Complaint: Abdominal Pain Stated Complaint: INC CCONFUSION, SEEN RECENTLY FOR SAME Time Seen by Provider: 04/18/20 10:27 Source: patient, EMS and old records reviewed Mode of arrival: EMS Limitations: no limitations History of Present Illness HPI narrative: 55 yo female with advanced cirrhosis just seen here and DC in the last 8 hours for RUQ pain and confusion ammonia 88, US negative, DC home after lactulose, patient went home states her abdomen still hurts in RUQ though only has small ascites noted in RLQ - patient went home boyfriend gave her a percocet for pain, she notes she had a moment of confusion so EMS was called, patient notes she did not have a BM since going home MD complaint: confusion Onset (ago): day(s) (2) Severity: mild Consistency of symptoms: waxing and waning Context: history of similar presentation Associated symptoms: other (abdominal pain) Related Data Home Medications Medication Instructions Recorded Confirmed Xifaxan 550 mg PO BID 01/20/20 04/18/20 folic acid 1 mg PO DAILY 01/20/20 04/18/20 potassium chloride 40 meq PO DAILY 01/20/20 04/18/20 Flovent HFA 2 puff INHALATION BID 02/09/20 04/18/20 albuterol sulfate 2 puff INHALATION Q4H PRN 02/09/20 04/18/20 calcium carbonate [Antacid Ext Str 1 tab PO TID PRN 02/09/20 04/18/20 (calcium carb)] thiamine HCl (vitamin B1) 100 mg PO DAILY 02/09/20 04/18/20 baclofen 10 mg PO BID 02/13/20 04/18/20 cetirizine 10 mg PO DAILY 02/19/20 04/18/20 metformin 750 mg PO DAILY@1700 02/19/20 04/18/20 pyridoxine (vitamin B6) 50 mg PO DAILY 02/19/20 04/18/20 Stiolto Respimat 2 puff INHALATION DAILY 02/26/20 04/18/20 acetaminophen 500 mg PO Q6H PRN 04/18/20 04/18/20 buprenorphine 1 patch TRANSDERMAL QWEEK 04/18/20 04/18/20 cholecalciferol (vitamin D3) 50 mcg PO DAILY 04/18/20 04/18/20 [Vitamin D3] docusate sodium 100 mg PO BID PRN 04/18/20 04/18/20 gabapentin 300 mg PO TID 04/18/20 04/18/20 magnesium oxide 400 mg PO BID 04/18/20 04/18/20 omeprazole 20 mg PO BID@0630,1630 04/18/20 04/18/20 risperidone 1 mg PO BID 04/18/20 04/18/20 spironolactone 25 mg PO DAILY 04/18/20 04/18/20 torsemide 40 mg PO DAILY 04/18/20 04/18/20 Previous Rx's Medication Instructions Recorded lactulose 30 g PO TID #240 ml 02/23/20 Allergies Allergy/AdvReac Type Severity Reaction Status Date / Time Iodinated Contrast Media Allergy Severe ANAPHYLAXIS Verified 04/18/20 00:44 [CONTRAST, IV] amoxicillin [AMOXICILLIN] Allergy Intermediate NAUSEA & Verified 04/18/20 00:44 VOMITING lamotrigine [From LAMICTAL] Allergy Intermediate RASH Verified 04/18/20 00:44 Sulfa (Sulfonamide Allergy Intermediate Rash Verified 04/18/20 00:44 Antibiotics) [SULFA (SULFONAMIDE ANTIBIOTICS)] sulfamethoxazole Allergy Intermediate Rash Verified 04/18/20 00:44 [From BACTRIM] trimethoprim [From BACTRIM] Allergy Intermediate Rash Verified 04/18/20 00:44 Review of Systems Review of Systems: Constitutional : No Weight loss, No Fever, No Chills ENT/Mouth : No sore throat, No Rhinorrhea Eyes: No Swelling, No Redness Cardiovascular : No Chest Pain, No SOB, NoEdema Respiratory : No Cough, No Sputum, No Wheezing Gastrointestinal : no Nausea, no Vomiting, positive Diarrhea, positive abdominal Pain, No Hematochezia, No Melena Genitourinary : No Dysuria, No Urinary Frequency, No Hematuria, No Urgency Musculoskeletal : No joint pain, No Myalgias, No Joint Swelling Skin : No Skin Lesions, No rash Neuro : No Weakness, No Numbness, No Dizziness, No Headache, feels confused at times Psych : No Anxiety/Panic, No Depression Heme/Lymph: No Bruising, No Lymphadenopathy Endocrine : No Polyuria, No Polydipsia All other systems reviewed and are negative. [facility] Past Medical History Source: old records reviewed Medical History Anemia Anxiety Chronic back pain Chronic hyponatremia Cirrhosis Coagulopathy Congestive heart failure COPD (chronic obstructive pulmonary disease) Depression Diabetes 1.5, managed as type 2 Hyponatremia Liver disease Pneumonia PTSD (post-traumatic stress disorder) Thrombocytopenia Surgical History History of cholecystectomy Previous back surgery S/P TIPS (transjugular intrahepatic portosystemic shunt) Family History Family History Other HTN (hypertension) Social History Social History Household Members: Unknown / Unable to assess Housing: Unknown / Unable to assess Alcohol intake: former Smoking Status: Current every day smoker Tobacco Type: Cigarette Packs Per Day: 0.5 Cigarettes Per Day: 10.0 Years Smoked: 40 Second Hand Smoke Exposure: No Substance Use Type: Heroin and Marijuana Advance Directives: No Advance Directives Information Provided: Yes service: No Current occupational status: unemployed Physical Exam Vital Signs: Vital Signs: Last Vital Signs Temp 97.9 F 04/18/20 15:39 Pulse 98 04/18/20 15:39 Resp 18 04/18/20 15:39 BP 133/61 04/18/20 15:39 Pulse Ox 98 04/18/20 10:41 Body Mass Index 40.0 Appearance: Alert. Oriented X3. No acute distress. Eyes: Pupils equal, round and reactive to light. scleral icterus ENT: Pharynx normal. Neck: Normal inspection. Neck supple. CVS: Normal heart rate and rhythm. Pulses normal. Respiratory: No respiratory distress. Breath sounds normal. Abdomen: Soft and mild RUQ ttp no rebound or guarding, no ascites noted Skin: Skin warm and dry. jaundiced. Normal skin turgor. Extremities: + 2 to 3+ pitting edema. No calf ttp Neuro: Oriented X 3. No motor deficit. No sensory deficit. + asterixis L hand Course Course Course Narrative: talked to US - attempting to get liver duplex to r/o portal venous clot patient refused US aware we were looking at her liver for her abdominal pain, patient was fine on arrival, her abdomen was benign and now she is screaming in the hallway and refusing care patient with no abdominal pain now after BM, feels much better, notes she has been constipated at home will discuss with Dr. Castle in regards to CT scan and area of air noted - has reviewed CT scan with Radiology and seen patient abdomen is benign MDM - Altered Mental Status MDM Narrative Medical decision making narrative: 55 yo female with advanced cirrhosis states she felt confused today and notes at times her RUQ hurts, had US that showed trace ascites but her pain is only localized to the RUQ doubt SBP, she is allergic to IV dye, at this time will obtain labs, ammonia, give lactulose, CT scan dry to evaluate further Lab Data Result diagrams: 04/18/20 11:12 04/18/20 11:12 Labs: Lab Results 04/18/20 04/18/20 04/18/20 Range/Units 11:12 11:12 11:12 WBC 14.2 H (4.8-10.8) X10*3/uL RBC 2.62 L (4.20-5.50) X10*6/uL Hgb 8.9 L (12.0-16.0) g/dl Hct 26.6 L (37-47) % MCV 101.5 H (80-98) fL MCH 34.0 H (27.0-33.0) pg MCHC 33.5 (31.0-35.0) g/dl RDW 21.3 H (11.0-16.0) % Plt Count 74 L (160-400) X10*3/uL MPV 11.1 (9.4-12.3) fL Immature Gran % (Auto) 0.8 H (0.0-0.4) % Neut % (Auto) 78.9 H (45-73) % Lymph % (Auto) 8.1 L (20-40) % Dickens % (Auto) 9.9 (2-11) % Eos % (Auto) 2.1 (0-4) % Baso % (Auto) 0.2 (0-2) % Lymph # (Auto) 1.2 (1.2-4.9) X10*3/uL Dickens # (Auto) 1.4 H (0.1-1.2) X10*3/uL Eos # (Auto) 0.3 (0.0-0.4) X10*3/uL Baso # (Auto) 0.0 (0.0-0.2) X10*3/uL Abs Immat Gran (auto) 0.11 H (0.00-0.03) X10*3/uL Absolute Neuts (auto) 11.2 H (2.0-8.3) X10*3/uL Absolute Nucleated RBC 0.000 (0.0-0.012) X10*3/uL Nucleated RBC % (auto) 0.0 (0.0-0.2) /100WBC PT (10.8-13.0) SEC INR (0.9-1.1) APTT (24.1-38.0) SEC VBG pH (7.32-7.43) VBG pCO2 mmHg VBG pO2 mmHg VBG HCO3 mmol/L VBG O2 Saturation % VBG Base Excess mmol/L Sodium 127 L (135-145) mmol/L Potassium 4.0 (3.3-5.1) mmol/L Chloride 89 L (96-108) mmol/L Carbon Dioxide 32 H (22-29) mmol/L Anion Gap 10 L (12-20) BUN 8 L (9-16) mg/dL Creatinine 0.78 (0.5-1.4) mg/dL Estim Creat Clear Calc 84.9 Estimated GFR > 60 Random Glucose 134 H (60-115) mg/dL Lactic Acid (0.5-2.0) mmol/L Calcium 7.6 L (8.4-10.2) mg/dL Magnesium 1.6 (1.6-2.6) mg/dL Total Bilirubin 9.1 H (0.0-1.0) mg/dL Direct Bilirubin 5.0 H (0.0-0.5) mg/dL AST 47 H (5-31) U/L ALT 29 (0-31) U/L Alkaline Phosphatase 172 H (39-117) U/L Ammonia 95 H (13-55) umol/L Total Protein 5.3 L (6.5-8.0) g/dL Albumin 2.2 L (3.5-5.0) g/dL Lipase (8-78) U/L Ethyl Alcohol mg/dL COVID-19 (GIOVANI) (Negative) COVID-19 Clin Com 04/18/20 04/18/20 04/18/20 Range/Units 11:12 11:12 11:12 WBC (4.8-10.8) X10*3/uL RBC (4.20-5.50) X10*6/uL Hgb (12.0-16.0) g/dl Hct (37-47) % MCV (80-98) fL MCH (27.0-33.0) pg MCHC (31.0-35.0) g/dl RDW (11.0-16.0) % Plt Count (160-400) X10*3/uL MPV (9.4-12.3) fL Immature Gran % (Auto) (0.0-0.4) % Neut % (Auto) (45-73) % Lymph % (Auto) (20-40) % Dickens % (Auto) (2-11) % Eos % (Auto) (0-4) % Baso % (Auto) (0-2) % Lymph # (Auto) (1.2-4.9) X10*3/uL Dickens # (Auto) (0.1-1.2) X10*3/uL Eos # (Auto) (0.0-0.4) X10*3/uL Baso # (Auto) (0.0-0.2) X10*3/uL Abs Immat Gran (auto) (0.00-0.03) X10*3/uL Absolute Neuts (auto) (2.0-8.3) X10*3/uL Absolute Nucleated RBC (0.0-0.012) X10*3/uL Nucleated RBC % (auto) (0.0-0.2) /100WBC PT 25.7 H (10.8-13.0) SEC INR 2.1 H (0.9-1.1) APTT 53.3 H D (24.1-38.0) SEC VBG pH (7.32-7.43) VBG pCO2 mmHg VBG pO2 mmHg VBG HCO3 mmol/L VBG O2 Saturation % VBG Base Excess mmol/L Sodium (135-145) mmol/L Potassium (3.3-5.1) mmol/L Chloride (96-108) mmol/L Carbon Dioxide (22-29) mmol/L Anion Gap (12-20) BUN (9-16) mg/dL Creatinine (0.5-1.4) mg/dL Estim Creat Clear Calc Estimated GFR Random Glucose (60-115) mg/dL Lactic Acid (0.5-2.0) mmol/L Calcium (8.4-10.2) mg/dL Magnesium (1.6-2.6) mg/dL Total Bilirubin (0.0-1.0) mg/dL Direct Bilirubin (0.0-0.5) mg/dL AST (5-31) U/L ALT (0-31) U/L Alkaline Phosphatase (39-117) U/L Ammonia (13-55) umol/L Total Protein (6.5-8.0) g/dL Albumin (3.5-5.0) g/dL Lipase 26 (8-78) U/L Ethyl Alcohol mg/dL COVID-19 (GIOVANI) Negative (Negative) COVID-19 Clin Com See Note 04/18/20 04/18/20 04/18/20 Range/Units 11:12 11:12 12:39 WBC (4.8-10.8) X10*3/uL RBC (4.20-5.50) X10*6/uL Hgb (12.0-16.0) g/dl Hct (37-47) % MCV (80-98) fL MCH (27.0-33.0) pg MCHC (31.0-35.0) g/dl RDW (11.0-16.0) % Plt Count (160-400) X10*3/uL MPV (9.4-12.3) fL Immature Gran % (Auto) (0.0-0.4) % Neut % (Auto) (45-73) % Lymph % (Auto) (20-40) % Dickens % (Auto) (2-11) % Eos % (Auto) (0-4) % Baso % (Auto) (0-2) % Lymph # (Auto) (1.2-4.9) X10*3/uL Dickens # (Auto) (0.1-1.2) X10*3/uL Eos # (Auto) (0.0-0.4) X10*3/uL Baso # (Auto) (0.0-0.2) X10*3/uL Abs Immat Gran (auto) (0.00-0.03) X10*3/uL Absolute Neuts (auto) (2.0-8.3) X10*3/uL Absolute Nucleated RBC (0.0-0.012) X10*3/uL Nucleated RBC % (auto) (0.0-0.2) /100WBC PT (10.8-13.0) SEC INR (0.9-1.1) APTT (24.1-38.0) SEC VBG pH 7.52 H (7.32-7.43) VBG pCO2 48 mmHg VBG pO2 77 mmHg VBG HCO3 39 mmol/L VBG O2 Saturation 95.0 % VBG Base Excess 15.1 mmol/L Sodium (135-145) mmol/L Potassium (3.3-5.1) mmol/L Chloride (96-108) mmol/L Carbon Dioxide (22-29) mmol/L Anion Gap (12-20) BUN (9-16) mg/dL Creatinine (0.5-1.4) mg/dL Estim Creat Clear Calc Estimated GFR Random Glucose (60-115) mg/dL Lactic Acid 1.3 (0.5-2.0) mmol/L Calcium (8.4-10.2) mg/dL Magnesium (1.6-2.6) mg/dL Total Bilirubin (0.0-1.0) mg/dL Direct Bilirubin (0.0-0.5) mg/dL AST (5-31) U/L ALT (0-31) U/L Alkaline Phosphatase (39-117) U/L Ammonia (13-55) umol/L Total Protein (6.5-8.0) g/dL Albumin (3.5-5.0) g/dL Lipase (8-78) U/L Ethyl Alcohol < 10 mg/dL COVID-19 (GIOVANI) (Negative) COVID-19 Clin Com Critical Care Time Critical Care Time Critical Care Time: Yes Total Critical Care Time: 35 Attestation: surgery consult, IV resuscitation, review of records. I attest to this time spent taking care of the patient Discharge Plan Discharge Clinical Impression: Advanced hepatic cirrhosis, Hepatic encephalopathy, Chronic hyponatremia Patient Disposition: Admitted As Inpatient
--- NOTE | 2020-04-18 10:43 | CT_ITS ---
EXAMINATION: CT HEAD WITHOUT CONTRAST CLINICAL INFORMATION: Confusion COMPARISON: Previous head CT most recent March 2020 TECHNIQUE: Contiguous axial imaging was performed from the skull base to vertex without intravenous administration of contrast. This CT examination was performed using dose optimization techniques as appropriate, variously including the following: *Automated exposure control *Adjustment of mA and/or kV according to patient size (this includes techniques or standardized protocols for targeted exams where dose is matched to indication/reason for exam; i.e. extremities or head) *Use of iterative reconstruction technique DLP: 1247 mGy-cm FINDINGS: Exam is limited due to motion artifact. There is no evidence of an extra-axial collection. There is no evidence of intra-axial or extra-axial hemorrhage. The ventricles and extra-axial CSF spaces are appropriate. Monzon-white matter differentiation is normal. No mass, mass effect or infarct is seen. There is new sphenoid sinus disease. CT/CT head/brain wo con IMPRESSION: No acute findings. Exam is limited due to motion artifact. Sphenoid sinus disease new from March 2020 exam.
[2020-04-18 11:18] LABS: MANUAL DIFF FLAG NO
[2020-04-18] MEDS: Lactulose 20 GM/30 ML SOLUTION 30 GM PO ×3 (11:19→21:45)
[2020-04-18] MEDS: oxyCODONE HCl Immed Release 5 MG TABLET 10 MG PO ×2 (11:20→16:56)
[2020-04-18 11:22] LABS: Base Excess VBG 15.1 mmol/L; HCO3 VBG 39 mmol/L; PCO2 VBG 48 mmHg; PO2 VBG 77 mmHg; pH VBG 7.52 (7.32-7.43)
[2020-04-18 11:27] LABS: INTERNATIONAL NORM RATIO 2.1 (0.9-1.1); Prothrombin Time 25.7 SEC (10.8-13.0)
[2020-04-18 11:30] LABS: Partial Thromboplastin Time 53.3 SEC (24.1-38.0)
[2020-04-18 11:33] LABS: Basophils Percent Auto 0.2 % (0-2); Eosinophils Absolute Auto 0.3 X10*3/uL (0.0-0.4); Eosinophils Percent Auto 2.1 % (0-4); Hematocrit 26.6 % (37-47); Hemoglobin 8.9 g/dl (12.0-16.0); Imm Gran Abs Auto 0.11 X10*3/uL (0.00-0.03); Imm Gran Pct Auto 0.8 % (0.0-0.4); Lymphocytes Absolute Auto 1.2 X10*3/uL (1.2-4.9); Lymphocytes Percent Auto 8.1 % (20-40); Mean Corpuscular HGB Conc 33.5 g/dl (31.0-35.0); Mean Corpuscular Volume 101.5 fL (80-98); Mean Platelet Volume 11.1 fL (9.4-12.3); Monocytes Absolute Auto 1.4 X10*3/uL (0.1-1.2); Monocytes Percent Auto 9.9 % (2-11); Neutrophils Absolute Auto 11.2 X10*3/uL (2.0-8.3); Neutrophils Percent Auto 78.9 % (45-73); Red Blood Count 2.62 X10*6/uL (4.20-5.50); Red Cell Distribution Width 21.3 % (11.0-16.0); White Blood Count 14.2 X10*3/uL (4.8-10.8)
[2020-04-18 11:34] LABS: Platelet Count 74 X10*3/uL (160-400)
[2020-04-18 11:42] LABS: Ammonia 95 umol/L (13-55)
[2020-04-18 11:44] LABS: Ethanol < 10 mg/dL
[2020-04-18 11:47] LABS: Lipase 26 U/L (8-78)
[2020-04-18 11:49] LABS: Alanine Aminotransferase 29 U/L (0-31); Albumin Level 2.2 g/dL (3.5-5.0); Alkaline Phosphatase 172 U/L (39-117); Anion Gap 10 (12-20); Aspartate Amino Transferase 47 U/L (5-31); Bilirubin Total 9.1 mg/dL (0.0-1.0); Blood Urea Nitrogen 8 mg/dL (9-16); Calcium 7.6 mg/dL (8.4-10.2); Carbon Dioxide 32 mmol/L (22-29); Chloride 89 mmol/L (96-108); Creatinine Clr Calc Pharmacy 84.9; Estimated Glomerular Filt Rate > 60; Glucose Random 134 mg/dL (60-115); Magnesium 1.6 mg/dL (1.6-2.6); Sodium 127 mmol/L (135-145); Total Protein 5.3 g/dL (6.5-8.0)
[2020-04-18] MEDS: Albumin Human 25 % 100 ML IV (12:40)
[2020-04-18] MEDS: 0.9 % Sodium Chloride 1,000 ML 999 ML IVCONT (12:40)
[2020-04-18 12:53] LABS: COVID-19 Test Negative (Negative); IDNOW Serial# 9DD0AD1C
[2020-04-18 13:05] LABS: Lactic Acid 1.3 mmol/L (0.5-2.0)
--- NOTE | 2020-04-18 15:34 | P.CONGS_ITS ---
History of Present Illness Consult details Consult date: 04/18/20 Narrative: 52-year-old female referred by the emergency room for an abnormal CAT scan of the abdomen. The patient has severe cirrhosis and advanced liver disease and had a TIPS procedure done 2 years ago. She has been in an out of hospital since then. She was brought in today by her boyfriend because of worsening confusion and complaints of abdominal pain. She also has been noted to have worsening wheezing as well. She actually wanted brought in yesterday as well for the same problem but was discharged for hepatic encephalopathy. I had a long discussion with her healthcare proxy Malena Ramos about her history. She had been in an out of the hospital for several months now. She has had chronic complaints of abdominal pain as well. She has had chronic anemia as well. Overall, it sounds like the patient has been having more debilitation and worsening level of function the past several months. There has been no report of any nausea or vomiting. The patient does have chronic constipation. She had a CAT scan done in the emergency room showing ascites as well as a very small focus of air in the right upper quadrant adjacent to the liver within the ascitic fluid. I was therefore consulted. Review of Systems Constitutional: Constitutional: Denies chills and Denies fever(s) Cardiovascular: Cardiovascular: Denies chest pain and Reports dyspnea Respiratory: Respiratory: Reports dyspnea Gastrointestinal: Gastrointestinal: Reports constipation PMF Past Medical History Medical History (Updated 04/18/20 @ 15:49 by Silvino Castle MD) Abnormal CT scan, gastrointestinal tract Anemia Anxiety Chronic back pain Chronic hyponatremia Cirrhosis Coagulopathy Congestive heart failure COPD (chronic obstructive pulmonary disease) Depression Diabetes 1.5, managed as type 2 Hyponatremia Liver disease Pneumonia PTSD (post-traumatic stress disorder) Thrombocytopenia Family History Family History Other HTN (hypertension) Surgical History Surgical History History of cholecystectomy Previous back surgery S/P TIPS (transjugular intrahepatic portosystemic shunt) Social History Social History Household Members: Unknown / Unable to assess Housing: Unknown / Unable to assess Alcohol intake: former Smoking Status: Current every day smoker Tobacco Type: Cigarette Packs Per Day: 0.5 Cigarettes Per Day: 10.0 Years Smoked: 40 Second Hand Smoke Exposure: No Substance Use Type: Heroin and Marijuana Advance Directives: No Advance Directives Information Provided: Yes service: No Current occupational status: unemployed Meds Allergies Allergy/AdvReac Type Severity Reaction Status Date / Time Iodinated Contrast Media Allergy Severe ANAPHYLAXIS Verified 04/18/20 00:44 [CONTRAST, IV] amoxicillin [AMOXICILLIN] Allergy Intermediate NAUSEA & Verified 04/18/20 00:44 VOMITING lamotrigine [From LAMICTAL] Allergy Intermediate RASH Verified 04/18/20 00:44 Sulfa (Sulfonamide Allergy Intermediate Rash Verified 04/18/20 00:44 Antibiotics) [SULFA (SULFONAMIDE ANTIBIOTICS)] sulfamethoxazole Allergy Intermediate Rash Verified 04/18/20 00:44 [From BACTRIM] trimethoprim [From BACTRIM] Allergy Intermediate Rash Verified 04/18/20 00:44 Home Medications Medication Instructions Recorded Confirmed Type Xifaxan 550 mg PO BID 01/20/20 04/18/20 History folic acid 1 mg PO DAILY 01/20/20 04/18/20 History potassium chloride 40 meq PO DAILY 01/20/20 04/18/20 History Flovent HFA 2 puff INHALATION BID 02/09/20 04/18/20 History albuterol sulfate 2 puff INHALATION Q4H PRN 02/09/20 04/18/20 History calcium carbonate [Antacid Ext Str 1 tab PO TID PRN 02/09/20 04/18/20 History (calcium carb)] thiamine HCl (vitamin B1) 100 mg PO DAILY 02/09/20 04/18/20 History baclofen 10 mg PO BID 02/13/20 04/18/20 History cetirizine 10 mg PO DAILY 02/19/20 04/18/20 History metformin 750 mg PO DAILY@1700 02/19/20 04/18/20 History pyridoxine (vitamin B6) 50 mg PO DAILY 02/19/20 04/18/20 History Stiolto Respimat 2 puff INHALATION DAILY 02/26/20 04/18/20 History acetaminophen 500 mg PO Q6H PRN 04/18/20 04/18/20 History buprenorphine 1 patch TRANSDERMAL QWEEK 04/18/20 04/18/20 History cholecalciferol (vitamin D3) 50 mcg PO DAILY 04/18/20 04/18/20 History [Vitamin D3] docusate sodium 100 mg PO BID PRN 04/18/20 04/18/20 History gabapentin 300 mg PO TID 04/18/20 04/18/20 History magnesium oxide 400 mg PO BID 04/18/20 04/18/20 History omeprazole 20 mg PO BID@0630,1630 04/18/20 04/18/20 History risperidone 1 mg PO BID 04/18/20 04/18/20 History spironolactone 25 mg PO DAILY 04/18/20 04/18/20 History torsemide 40 mg PO DAILY 04/18/20 04/18/20 History Physical Exam Vital Signs: Vital Signs: Last Vital Signs Temp 97 F 04/18/20 10:41 Pulse 97 04/18/20 10:41 Resp 16 04/18/20 10:41 BP 110/55 L 04/18/20 10:41 Pulse Ox 98 04/18/20 10:41 Body Mass Index 40.0 Const: Other: Confused, consistent with encephalopathy Resp: Auscultation: wheezes Cardio: Rhythm: regular rhythm GI: Other: Has ascites, vague tenderness diffusely but benign without any guar ding or rebound Results Labs Result diagrams: 04/18/20 11:12 04/18/20 11:12 Labs: Abnormal lab results 04/18/20 04/18/20 04/18/20 Range/Units 11:12 11:12 11:12 WBC 14.2 H (4.8-10.8) X10*3/uL RBC 2.62 L (4.20-5.50) X10*6/uL Hgb 8.9 L (12.0-16.0) g/dl Hct 26.6 L (37-47) % MCV 101.5 H (80-98) fL MCH 34.0 H (27.0-33.0) pg RDW 21.3 H (11.0-16.0) % Plt Count 74 L (160-400) X10*3/uL Immature Gran % (Auto) 0.8 H (0.0-0.4) % Neut % (Auto) 78.9 H (45-73) % Lymph % (Auto) 8.1 L (20-40) % [place] # (Auto) 1.4 H (0.1-1.2) X10*3/uL Abs Immat Gran (auto) 0.11 H (0.00-0.03) X10*3/uL Absolute Neuts (auto) 11.2 H (2.0-8.3) X10*3/uL PT (10.8-13.0) SEC INR (0.9-1.1) APTT (24.1-38.0) SEC VBG pH (7.32-7.43) Sodium 127 L (135-145) mmol/L Chloride 89 L (96-108) mmol/L Carbon Dioxide 32 H (22-29) mmol/L Anion Gap 10 L (12-20) BUN 8 L (9-16) mg/dL Random Glucose 134 H (60-115) mg/dL Calcium 7.6 L (8.4-10.2) mg/dL Total Bilirubin 9.1 H (0.0-1.0) mg/dL Direct Bilirubin 5.0 H (0.0-0.5) mg/dL AST 47 H (5-31) U/L Alkaline Phosphatase 172 H (39-117) U/L Ammonia 95 H (13-55) umol/L Total Protein 5.3 L (6.5-8.0) g/dL Albumin 2.2 L (3.5-5.0) g/dL 04/18/20 04/18/20 Range/Units 11:12 11:12 WBC (4.8-10.8) X10*3/uL RBC (4.20-5.50) X10*6/uL Hgb (12.0-16.0) g/dl Hct (37-47) % MCV (80-98) fL MCH (27.0-33.0) pg RDW (11.0-16.0) % Plt Count (160-400) X10*3/uL Immature Gran % (Auto) (0.0-0.4) % Neut % (Auto) (45-73) % Lymph % (Auto) (20-40) % [place] # (Auto) (0.1-1.2) X10*3/uL Abs Immat Gran (auto) (0.00-0.03) X10*3/uL Absolute Neuts (auto) (2.0-8.3) X10*3/uL PT 25.7 H (10.8-13.0) SEC INR 2.1 H (0.9-1.1) APTT 53.3 H D (24.1-38.0) SEC VBG pH 7.52 H (7.32-7.43) Sodium (135-145) mmol/L Chloride (96-108) mmol/L Carbon Dioxide (22-29) mmol/L Anion Gap (12-20) BUN (9-16) mg/dL Random Glucose (60-115) mg/dL Calcium (8.4-10.2) mg/dL Total Bilirubin (0.0-1.0) mg/dL Direct Bilirubin (0.0-0.5) mg/dL AST (5-31) U/L Alkaline Phosphatase (39-117) U/L Ammonia (13-55) umol/L Total Protein (6.5-8.0) g/dL Albumin (3.5-5.0) g/dL Short CBC 04/18/20 Range/Units 11:12 WBC 14.2 H (4.8-10.8) X10*3/uL Hgb 8.9 L (12.0-16.0) g/dl Hct 26.6 L (37-47) % Plt Count 74 L (160-400) X10*3/uL BMP 04/18/20 11:12 Sodium 127 L Potassium 4.0 Chloride 89 L Carbon Dioxide 32 H BUN 8 L Creatinine 0.78 Calcium 7.6 L Liver Function 04/18/20 Range/Units 11:12 Total Bilirubin 9.1 H (0.0-1.0) mg/dL Direct Bilirubin 5.0 H (0.0-0.5) mg/dL AST 47 H (5-31) U/L ALT 29 (0-31) U/L Alkaline Phosphatase 172 H (39-117) U/L Albumin 2.2 L (3.5-5.0) g/dL All other labs normal. Assessment and Plan (1) Abnormal CT scan, gastrointestinal tract: Status: Acute I have reviewed her CAT scan with Dr. Golden. This shows of very small focus of air within the ascitic fluid in the right upper quadrant, about 4 mm across. There is no evidence of any inflammatory changes in the GI tract. There is no signs of diverticulitis, or perforated discussed elsewhere. She has significant ascites and severe cirrhosis. Her abdominal exam is actually benign even with some tenderness. Overall clinical picture suggest a benign focus of in the abdomen. This could be secondary to a bleb from this serosa of the GI tract or the omentum. However, she does have multiple other medical conditions. He has advanced cirrhosis, and has encephalopathy. She has history of CHF. I therefore had a long discussion with her healthcare proxy, Malena Venu [phone]. She states that she has been aware of the patient's steady decline in her overall condition. She knows that she has advanced liver disease. As her healthcare proxy, she states that she would not want her to undergo any major surgery down the line if it comes down to that. The patient has signs of encephalopathy so she is being admitted the medical service. Her overall long-term prognosis is poor. Her MELD SCORE is 29. I will follow along while the patient in the hospital.
[2020-04-18 15:39] VITALS: BP 133/61; PULSE 98; RESP 18; TEMP 36.6
--- NOTE | 2020-04-18 17:24 | PM.EVENT ---
Event Note Event Note: date of service 04/18/20 addendum to H+P by C[employer] SUPERVISOR Soraya Lyle I interviewed and examined the patient. I discussed their presentation and management with the mid-level provider. I reviewed the history and physical and agree with the documentation, with the following additions and corrections: 55yo F with decompensated EtOH cirrhosis of the liver, DM2 recent admission to ICU for intubation/mechanical ventilation after heroin overdose, now on Butrans patch presented with worsening confusion in the context of nausea/constipation on rifaximin + lactulose for hepatic encephalopathy denies abd pain/distension; has hx of ascites on CT found to have small focuse of air seen in ascitic fluid in RUQ, ?partial volume averaging with loop of small bowel containing air but cannot exclude free intraperitoneal air seen by Gen Surg- not surgical candidate denies substance abuse since last admission on exam, chronically ill appearing with icteric sclera, lungs clear, CV RRR no m/r/g, abd soft/non-distended, florid asterixis. T 97.9, P 98, R 18, BP 133/61, SaO2 98 on RA Na 127, Tbili 9.1 plan admit to IMC, treat HE with lactulose + rifaximin, consult GI Surg to follow pt. Given possibility of peritoneal free air as well as small amount ascites, will cover for intra-abd infection with pip/juancarlos fluid-restrict for hyponatremia check UTox d/c MTF due to cirrhosis avoid heparin due to cirrhosis-associated coagulopathy
--- NOTE | 2020-04-18 18:16 | P.HPHOSP_ITS ---
History of Present Illness Date of Service: 04/18/20 Chief Complaint: Confusion 55-year-old woman presenting to the ER with complaints of increased confusion. She was in the ED on 04/17 for altered mental status, right upper quadrant pain with nausea. At that time her ammonia level was stable and she was alert and oriented. She was discharged home to continue her home regimen. She does have a history past alcohol abuse and heroin abuse. She is status post TIPS procedure. Her ammonia was noted to be 95 in the ER and she did seem to have more confusion therefore she presented back to the ER today. She reported some nausea and constipation. Her bili is 9.1 and usually elevated, sodium 127. Abdominal CT showed Cirrhotic-appearing liver. Small amount of ascites with small focus of air seen in the ascitic fluid in the right upper quadrant, question representing partial volume averaging with a loop of small bowel containing air. Possible small amount of free intraperitoneal air. She was seen and evaluated by General surgery who discussed the patient's case with her healthcare proxy, Malena Lae. Apparently patient has had a steady decline in her overall condition and patient is not to undergo any aggressive or major surgical procedures. After 1 dose of lactulose in the ER she did have some loose stools. She also received oxycodone, 1 L of IV fluid, albumin and oxycodone. Review of Systems Review of Systems: Denies any recent fever chills or decrease in appetite respiratory denies any shortness of breath coverage production cardiovascular is adjustment of any PND or edema gastrointestinal See HPI genitourinary denies any dysuria frequency or hematuria musculoskeletal denies any joint pain or swelling neuropsych denies any weakness or seizures all other systems reviewed are negative [facility] Medical History (Updated 04/18/20 @ 15:49 by Silvino Castle MD) Abnormal CT scan, gastrointestinal tract Anemia Anxiety Chronic back pain Chronic hyponatremia Cirrhosis Coagulopathy Congestive heart failure COPD (chronic obstructive pulmonary disease) Depression Diabetes 1.5, managed as type 2 Hyponatremia Liver disease Pneumonia PTSD (post-traumatic stress disorder) Thrombocytopenia Family History Other HTN (hypertension) Surgical History History of cholecystectomy Previous back surgery S/P TIPS (transjugular intrahepatic portosystemic shunt) Social History Household Members: Unknown / Unable to assess Housing: Unknown / Unable to assess Alcohol intake: former Smoking Status: Current every day smoker Tobacco Type: Cigarette Packs Per Day: 0.5 Cigarettes Per Day: 10.0 Years Smoked: 40 Second Hand Smoke Exposure: No Substance Use Type: Heroin and Marijuana Advance Directives: No Advance Directives Information Provided: Yes service: No Current occupational status: unemployed Meds Allergies Allergy/AdvReac Type Severity Reaction Status Date / Time Iodinated Contrast Media Allergy Severe ANAPHYLAXIS Verified 04/18/20 00:44 [CONTRAST, IV] amoxicillin [AMOXICILLIN] Allergy Intermediate NAUSEA & Verified 04/18/20 00:44 VOMITING lamotrigine [From LAMICTAL] Allergy Intermediate RASH Verified 04/18/20 00:44 Sulfa (Sulfonamide Allergy Intermediate Rash Verified 04/18/20 00:44 Antibiotics) [SULFA (SULFONAMIDE ANTIBIOTICS)] sulfamethoxazole Allergy Intermediate Rash Verified 04/18/20 00:44 [From BACTRIM] trimethoprim [From BACTRIM] Allergy Intermediate Rash Verified 04/18/20 00:44 Home Medications Medication Instructions Recorded Confirmed Type Xifaxan 550 mg PO BID 01/20/20 04/18/20 History folic acid 1 mg PO DAILY 01/20/20 04/18/20 History potassium chloride 40 meq PO DAILY 01/20/20 04/18/20 History Flovent HFA 2 puff INHALATION BID 02/09/20 04/18/20 History albuterol sulfate 2 puff INHALATION Q4H PRN 02/09/20 04/18/20 History calcium carbonate [Antacid Ext Str 1 tab PO TID PRN 02/09/20 04/18/20 History (calcium carb)] thiamine HCl (vitamin B1) 100 mg PO DAILY 02/09/20 04/18/20 History baclofen 10 mg PO BID 02/13/20 04/18/20 History cetirizine 10 mg PO DAILY 02/19/20 04/18/20 History metformin 750 mg PO DAILY@1700 02/19/20 04/18/20 History pyridoxine (vitamin B6) 50 mg PO DAILY 02/19/20 04/18/20 History Stiolto Respimat 2 puff INHALATION DAILY 02/26/20 04/18/20 History acetaminophen 500 mg PO Q6H PRN 04/18/20 04/18/20 History buprenorphine 1 patch TRANSDERMAL QWEEK 04/18/20 04/18/20 History cholecalciferol (vitamin D3) 50 mcg PO DAILY 04/18/20 04/18/20 History [Vitamin D3] docusate sodium 100 mg PO BID PRN 04/18/20 04/18/20 History gabapentin 300 mg PO TID 04/18/20 04/18/20 History magnesium oxide 400 mg PO BID 04/18/20 04/18/20 History omeprazole 20 mg PO BID@0630,1630 04/18/20 04/18/20 History risperidone 1 mg PO BID 04/18/20 04/18/20 History spironolactone 25 mg PO DAILY 04/18/20 04/18/20 History torsemide 40 mg PO DAILY 04/18/20 04/18/20 History Physical Exam Vital Signs and Narrative: Vital Signs: Last Vital Signs Temp 97.9 F 04/18/20 15:39 Pulse 98 04/18/20 15:39 Resp 18 04/18/20 15:39 BP 133/61 04/18/20 15:39 Pulse Ox 98 04/18/20 10:41 Body Mass Index 40.0 Appearing in no acute distress, jaundiced head is normocephalic atraumatic eyes pupils are PERRLA sclera is icteric mouth throat mucous membranes are intact and moist neck is supple no lymphadenopathy, no JVD noted lung sounds are clear some rhonchi throughout heart regular rate rhythm, clear S1, S2 positive bowel sounds, abdomen is soft very mildly distended neuro patient is alert x3, no focal deficits Results Labs CBC and Chem 7: 04/18/20 11:12 04/18/20 11:12 Labs: Laboratory Results - last 24 hr 04/18/20 04/18/20 04/18/20 11:12 11:12 11:12 MCV 101.5 H MCH 34.0 H MCHC 33.5 RDW 21.3 H Plt Count 74 L MPV 11.1 Immature Gran % (Auto) 0.8 H Neut % (Auto) 78.9 H Lymph % (Auto) 8.1 L [place] % (Auto) 9.9 Eos % (Auto) 2.1 Baso % (Auto) 0.2 Lymph # (Auto) 1.2 [place] # (Auto) 1.4 H Eos # (Auto) 0.3 Baso # (Auto) 0.0 Abs Immat Gran (auto) 0.11 H Absolute Neuts (auto) 11.2 H Absolute Nucleated RBC 0.000 Nucleated RBC % (auto) 0.0 PT INR APTT VBG pH VBG pCO2 VBG pO2 VBG HCO3 VBG O2 Saturation VBG Base Excess Anion Gap 10 L Estim Creat Clear Calc 84.9 Estimated GFR > 60 Random Glucose 134 H Lactic Acid Calcium 7.6 L Magnesium 1.6 Total Bilirubin 9.1 H Direct Bilirubin 5.0 H AST 47 H ALT 29 Alkaline Phosphatase 172 H Ammonia 95 H Total Protein 5.3 L Albumin 2.2 L Lipase Ethyl Alcohol COVID-19 ([facility]) COVID-19 Clin Com 04/18/20 04/18/20 04/18/20 11:12 11:12 11:12 MCV MCH MCHC RDW Plt Count MPV Immature Gran % (Auto) Neut % (Auto) Lymph % (Auto) [place] % (Auto) Eos % (Auto) Baso % (Auto) Lymph # (Auto) [place] # (Auto) Eos # (Auto) Baso # (Auto) Abs Immat Gran (auto) Absolute Neuts (auto) Absolute Nucleated RBC Nucleated RBC % (auto) PT 25.7 H INR 2.1 H APTT 53.3 H D VBG pH VBG pCO2 VBG pO2 VBG HCO3 VBG O2 Saturation VBG Base Excess Anion Gap Estim Creat Clear Calc Estimated GFR Random Glucose Lactic Acid Calcium Magnesium Total Bilirubin Direct Bilirubin AST ALT Alkaline Phosphatase Ammonia Total Protein Albumin Lipase 26 Ethyl Alcohol COVID-19 ([facility]) Negative COVID-19 [employer]house See Note 04/18/20 04/18/20 04/18/20 11:12 11:12 12:39 MCV MCH MCHC RDW Plt Count MPV Immature Gran % (Auto) Neut % (Auto) Lymph % (Auto) [place] % (Auto) Eos % (Auto) Baso % (Auto) Lymph # (Auto) [place] # (Auto) Eos # (Auto) Baso # (Auto) Abs Immat Gran (auto) Absolute Neuts (auto) Absolute Nucleated RBC Nucleated RBC % (auto) PT INR APTT VBG pH 7.52 H VBG pCO2 48 VBG pO2 77 VBG HCO3 39 VBG O2 Saturation 95.0 VBG Base Excess 15.1 Anion Gap Estim Creat Clear Calc Estimated GFR Random Glucose Lactic Acid 1.3 Calcium Magnesium Total Bilirubin Direct Bilirubin AST ALT Alkaline Phosphatase Ammonia Total Protein Albumin Lipase Ethyl Alcohol < 10 COVID-19 ([facility]) COVID-19 Clin Com Imaging Radiologist's Impressions: Impressions Abdomen/Pelvis CT 04/18/20 10:36 IMPRESSION: Cirrhotic-appearing liver. Small amount of ascites. There is a small focus of air seen in the ascitic fluid in the right upper quadrant, question representing partial volume averaging with a loop of small bowel containing air. Possible small amount of free intraperitoneal air cannot be excluded and follow-up should be considered if clinically indicated. Stool throughout the colon and slightly dilated colon suggestive of constipation. Fluid-filled loops of small bowel. Anasarca. Stable postsurgical changes to the lower lumbar spine. Head CT 04/18/20 10:43 IMPRESSION: No acute findings. Exam is limited due to motion artifact. Sphenoid sinus disease new from March 2020 exam. Assessment and Plan (1) Hepatic encephalopathy: Status: Acute 52-year-old woman admitted with acute on chronic hepatic encephalopathy. Hepatic encephalopathy . Ammonia 95. Patient does seem to be alert and oriented. Will continue lactulose t.i.d.. rifaximin. Recheck ammonia in the morning. Follow neuro status. Gastroenterology consultation Free air. Less likey perforation. Small amount of peritoneal free air. Noted on CT scan. Will treat with Zosyn, General surgery to follow. Chronic hyponatremia. Fluid restriction to diet. Follow BMP closely. Chronic liver cirrhosis . Small amount of ascites. Will treat empirically with Zosyn for SBP although patient does not have fever she did have a increased white blood cell count and abdominal pain. Continue PPI as well as spironolactone and torsemide. Coagulopathy. Chronic related to liver disease. No signs of bleeding, will check occult stool Anemia. Chronic, related to liver disease. History substance abuse. Patient denies any heroin abuse however previous record states that she has used. Apparently she is on Suboxone patch transder tammi weekly. Diabetes mellitus. Sliding scale, continue metformin. DVT prophylaxis mechanical compression boots Discussed with Dr. Menjivar Full code
[2020-04-18] MEDS: Piperacillin Sodium/Tazobactam 3.375 GM in 0.9 % Sodium Chloride 50 ML IV (19:57)
[2020-04-18 21:04] VITALS: BP 114/54; PULSE 108; RESP 22; TEMP 36.6; O2SAT 93
[2020-04-18] MEDS: rifAXIMin 550 MG TABLET PO (21:46)
[2020-04-18] MEDS: Magnesium Oxide 400 MG TABLET PO (21:46)
[2020-04-18] MEDS: Gabapentin 300 MG CAPSULE PO (21:46)
[2020-04-18] MEDS: risperiDONE 1 MG TABLET PO (21:46)
[2020-04-18] MEDS: Baclofen 10 MG TABLET PO (21:46)
[2020-04-19] VITALS (9 sets, daily range): BP systolic 115–141; BP diastolic 53–64; PULSE 110–122; RESP 18–22; TEMP 36.1–37.1; O2SAT 93–99; BMI 40.0
[2020-04-19] MEDS: Piperacillin Sodium/Tazobactam 3.375 GM in 0.9 % Sodium Chloride 50 ML IV ×5 (00:10→23:46)
--- NOTE | 2020-04-19 00:24 | PM.EVENT ---
Event Note Date of Service: 04/19/20 Event Note: Abdominal pain: RN called me around 1145 saying that patient complaining of abdominal pain. I went and examined the patient. No guarding no rigidity noticed. Patient complained of the left upper quadrant abdominal pain mildly tender in that area. Repeat x-ray showed no evidence of free air or obstruction. Will continue to monitor.
[2020-04-19] MEDS: 0.9 % Sodium Chloride Flush 3 ML SYRINGE IVFLUSH ×4 (01:57→23:46)
[2020-04-19] MEDS: Omeprazole 20 MG CAPSULE.DR PO ×2 (05:34→17:20)
[2020-04-19 08:23] LABS: MANUAL DIFF FLAG NO
[2020-04-19] MEDS: Magnesium Oxide 400 MG TABLET PO ×2 (08:23→20:04)
[2020-04-19] MEDS: Potassium Chloride ER 20 MEQ TAB.ER.PRT 40 MEQ PO (08:23)
[2020-04-19] MEDS: Gabapentin 300 MG CAPSULE PO ×3 (08:24→20:04)
[2020-04-19] MEDS: Torsemide 20 MG TABLET 40 MG PO (08:24)
[2020-04-19] MEDS: Cholecalciferol (Vitamin D3) 25 MCG TABLET 50 MCG PO (08:25)
[2020-04-19] MEDS: risperiDONE 1 MG TABLET PO ×2 (08:25→20:04)
[2020-04-19 08:26] LABS: Basophils Percent Auto 0.3 % (0-2); Eosinophils Absolute Auto 0.1 X10*3/uL (0.0-0.4); Eosinophils Percent Auto 1.2 % (0-4); Hematocrit 21.9 % (37-47); Hemoglobin 7.4 g/dl (12.0-16.0); Imm Gran Abs Auto 0.06 X10*3/uL (0.00-0.03); Imm Gran Pct Auto 0.5 % (0.0-0.4); Lymphocytes Absolute Auto 0.8 X10*3/uL (1.2-4.9); Lymphocytes Percent Auto 7.2 % (20-40); Mean Corpuscular HGB Conc 33.8 g/dl (31.0-35.0); Mean Corpuscular Hemoglobin 34.4 pg (27.0-33.0); Mean Corpuscular Volume 101.9 fL (80-98); Mean Platelet Volume 10.8 fL (9.4-12.3); Monocytes Absolute Auto 1.1 X10*3/uL (0.1-1.2); Monocytes Percent Auto 10.1 % (2-11); Neutrophils Absolute Auto 9.1 X10*3/uL (2.0-8.3); Neutrophils Percent Auto 80.7 % (45-73); Red Blood Count 2.15 X10*6/uL (4.20-5.50); Red Cell Distribution Width 21.8 % (11.0-16.0); White Blood Count 11.2 X10*3/uL (4.8-10.8)
[2020-04-19] MEDS: Baclofen 10 MG TABLET PO ×2 (08:26→20:04)
[2020-04-19] MEDS: Loratadine 10 MG TABLET PO (08:26)
[2020-04-19] MEDS: Thiamine HCL 100 MG TABLET PO (08:26)
[2020-04-19] MEDS: rifAXIMin 550 MG TABLET PO ×2 (08:26→20:04)
[2020-04-19] MEDS: Folic Acid 1 MG TABLET PO (08:26)
[2020-04-19] MEDS: Spironolactone 25 MG TABLET PO (08:26)
[2020-04-19] MEDS: Lactulose 20 GM/30 ML SOLUTION 30 GM PO ×4 (08:27→20:04)
[2020-04-19] MEDS: Pyridoxine HCl (Vitamin B6) 50 MG TABLET PO (08:27)
[2020-04-19 08:29] LABS: Platelet Count 61 X10*3/uL (160-400)
[2020-04-19 08:48] LABS: Ammonia 90 umol/L (13-55)
[2020-04-19 08:57] LABS: Alanine Aminotransferase 22 U/L (0-31); Albumin Level 2.2 g/dL (3.5-5.0); Alkaline Phosphatase 132 U/L (39-117); Anion Gap 11 (12-20); Aspartate Amino Transferase 38 U/L (5-31); Blood Urea Nitrogen 10 mg/dL (9-16); Calcium 7.6 mg/dL (8.4-10.2); Carbon Dioxide 29 mmol/L (22-29); Chloride 94 mmol/L (96-108); Estimated Glomerular Filt Rate > 60; Glucose Random 103 mg/dL (60-115); Potassium 3.6 mmol/L (3.3-5.1); Sodium 130 mmol/L (135-145); Total Protein 4.7 g/dL (6.5-8.0)
[2020-04-19 09:26] LABS: INTERNATIONAL NORM RATIO 2.4 (0.9-1.1); Prothrombin Time 28.6 SEC (10.8-13.0)
--- NOTE | 2020-04-19 10:21 | MHC.CM.PN ---
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
--- NOTE | 2020-04-19 10:55 | P.PNGS_ITS ---
Subjective Subjective Date of Service: 04/19/20 Interval history: no events reported pt says she feels ok remains confused however Physical Exam Vital Signs: Vital Signs: Last Vital Signs Temp 98 F 04/19/20 06:52 Pulse 110 H 04/19/20 08:26 Resp 22 H 04/19/20 06:52 BP 115/58 L 04/19/20 08:26 Pulse Ox 93 04/19/20 06:52 Body Mass Index 40.0 Chemistry 04/18/20 04/19/20 11:12 08:18 Sodium 127 L 130 L Potassium 4.0 3.6 Carbon Dioxide 32 H 29 BUN 8 L 10 Creatinine 0.78 0.69 Calcium 7.6 L 7.6 L Hematology 04/18/20 04/19/20 11:12 08:18 WBC 14.2 H 11.2 H Hgb 8.9 L 7.4 L Plt Count 74 L 61 L Const: Other: not oriented,tries to answer questions but visibly confused General: no acute distress Eyes: Sclerae: scleral abnormal (deeply icteric) Resp: Effort & Inspection: normal respiratory effort GI: Other: soft, with ascites, no guarding or rebound, vaguely tender(?) Progress Note: A&P Assessment and plan (1) Abnormal CT scan, gastrointestinal tract: Status: Acute Assessment and Plan: Appears comfortable Benign exam No guarding or rebound Small bubble of air in the ascites fluid on CT scan - no other evidence of perforated viscus Patient has advanced cirrhosis, end-stage liver disease No surgical intervention Discussed with healthcare proxy Malena Lea WBC near normal Fall Risk Details Current Medications: Current Medications Generic Name Dose Route Start Last Admin Trade Name Freq PRN Reason Stop Dose Admin Albuterol Sulfate 2 puff 04/18/20 18:15 Albuterol Sulfate 90 Mcg 8 Gm Inhaler INHALE Q4H PRN Shortness Of Breath Baclofen 10 mg 04/18/20 21:00 04/19/20 08:26 Baclofen 10 Mg Tablet PO 10 mg BID LILLI Administration Calcium Carbonate 300 mg 04/18/20 18:15 Calcium Carbonate 750 Mg Tab.Chew PO TID PRN Heartburn Docusate Sodium 100 mg 04/18/20 18:15 Docusate Sodium 100 Mg Capsule PO BID PRN Constipation Fluticasone Propionate 2 puff 04/18/20 20:00 04/19/20 07:20 Fluticasone Propionate 250 Mcg Blst.W.Dev INHALE Not Given RBID [facility] Folic Acid 1 mg 04/19/20 09:00 04/19/20 08:26 Folic Acid 1 Mg Tablet PO 1 mg DAILY [facility] Administration Gabapentin 300 mg 04/18/20 21:00 04/19/20 08:24 Gabapentin 300 Mg Capsule PO 300 mg TID [facility] Administration Piperacillin Sod/Tazobactam 50 mls @ 100 mls/hr 04/18/20 18:15 04/19/20 06:06 Sod 3.375 gm/ Sodium Chloride IV Infused Q6H [facility] Infusion Lactulose 30 gm 04/18/20 21:00 04/19/20 08:27 Lactulose 20 Gm/30 Ml Solution PO 30 gm TID [facility] Administration Lactulose 30 gm 04/18/20 21:00 04/19/20 08:36 Lactulose 20 Gm/30 Ml Solution PO 30 gm TID [facility] Administration Loratadine 10 mg 04/19/20 09:00 04/19/20 08:26 Loratadine 10 Mg Tablet PO 10 mg DAILY [facility] Administration Magnesium Oxide 400 mg 04/18/20 21:00 04/19/20 08:23 Magnesium Oxide 400 Mg Tablet PO 400 mg BID [facility] Administration Non-Formulary Medication 2 puff 04/19/20 09:00 Tiotropium-Olodaterol [Stiolto Respimat] INHALE DAILY [facility] Omeprazole 20 mg 04/19/20 06:30 04/19/20 05:34 Omeprazole 20 Mg Capsule.Dr PO 20 mg BID@5130,1630 [facility] Administration Ondansetron HCl 4 mg 04/18/20 18:15 Ondansetron Hcl 4 Mg/2 Ml Vial IVPUSH Q8H PRN Nausea and Vomiting Pharmacy Consult 1 each 04/18/20 12:57 Consult Rx Perform Med Rec MISCELLANE ONCE PRN Consult order Potassium Chloride 40 meq 04/19/20 09:00 04/19/20 08:23 Potassium Chloride Er 20 Meq Tab.Er.Prt PO 40 meq DAILY [facility] Administration Pyridoxine HCl 50 mg 04/19/20 09:00 04/19/20 08:27 Pyridoxine Hcl (Vitamin B6) 50 Mg Tablet PO 50 mg DAILY [facility] Administration Rifaximin 550 mg 04/18/20 21:00 04/19/20 08:26 Rifaximin 550 Mg Tablet PO 550 mg BID [facility] Administration Risperidone 1 mg 04/18/20 21:00 04/19/20 08:25 Risperidone 1 Mg Tablet PO 1 mg BID [facility] Administration Sodium Chloride 3 ml 04/19/20 00:00 04/19/20 08:23 0.9 % Sodium Chloride Flush 3 Ml Syringe IVFLUSH 3 ml QSHIFT [facility] Administration Spironolactone 25 mg 04/19/20 09:00 04/19/20 08:26 Spironolactone 25 Mg Tablet PO 25 mg DAILY [facility] Administration Protocol Thiamine HCl 100 mg 04/19/20 09:00 04/19/20 08:26 Thiamine Hcl 100 Mg Tablet PO 100 mg DAILY [facility] Administration Torsemide 40 mg 04/19/20 09:00 04/19/20 08:24 Torsemide 20 Mg Tablet PO 40 mg DAILY [facility] Administration Protocol Vitamin D 50 mcg 04/19/20 09:00 04/19/20 08:25 Cholecalciferol (Vitamin D3) 25 Mcg Tablet PO 50 mcg DAILY [facility] Administration Time Spent With Patient Time: Total time spent is greater than 50% in coordination of care (as documented) at patient's floor/unit and/or counseling patient: Time with patient: 15 - 24 minutes
[2020-04-19 11:43] LABS: Glucose Urine UA NEG (NEG); Leukocyte Esterase Urine NEG (NEG); Nitrite Urine NEG (NEG); PH 6.5 (5.0-8.0); Urine Blood 2+ (NEG); Urine Ketones NEG (NEG); Urine Protein NEG (NEG-TRACE)
[2020-04-19 11:49] LABS: Appearance Urine HAZY; Color Urine YELLOW
[2020-04-19 11:53] LABS: Bacteria Urine 1+ /LPF; RBC Urine 0-2 /HPF (0); Squamous Epithelial Cell Urine 1+ /LPF; WBC Urine 0-2 /HPF (0-4)
[2020-04-19 12:16] LABS: Amphetamine Screen Urine Not Detected (Not Detect); Barbiturates, Urine Not Detected (Not Detect); Benzodiazepines Screen Urine Not Detected (Not Detect); Cannabinoid Screen Urine Not Detected (Not Detect); Cocaine Screen Urine Not Detected (Not Detect); Opiate Screen Urine Not Detected (Not Detect); Phencyclidine Screen Urine Not Detected (Not Detect)
--- NOTE | 2020-04-19 13:27 | MHC.CM.PN ---
dr sandoval has concerns about pt returnin g home call placed and messge left for huyen gould pts hcp [phone] to discuss damian will need pt eval
[2020-04-19] MEDS: oxyCODONE HCl Immed Release 5 MG TABLET PO ×2 (14:50→20:04)
--- NOTE | 2020-04-19 15:13 | PM.GICN ---
History of Present Illness Data of Consult Service Date: 04/19/20 Primary Care Provider: Nuvia Bagley NP [facility] Past Medical History Medical History Abnormal CT scan, gastrointestinal tract Anemia Anxiety Chronic back pain Chronic hyponatremia Cirrhosis Coagulopathy Congestive heart failure COPD (chronic obstructive pulmonary disease) Depression Diabetes 1.5, managed as type 2 Hyponatremia Liver disease Pneumonia PTSD (post-traumatic stress disorder) Thrombocytopenia Family History Family History Other HTN (hypertension) Surgical History Surgical History History of cholecystectomy Previous back surgery S/P TIPS (transjugular intrahepatic portosystemic shunt) Social History Social History Household Members: Significant Other Housing: House Alcohol intake: former Smoking Status: Former smoker Tobacco Type: Cigarette Packs Per Day: 0.5 Cigarettes Per Day: 10.0 Years Smoked: 40 Second Hand Smoke Exposure: No Use of substances other than those prescribed or required for medical reasons: Unknown Substance Use Type: Heroin and Marijuana Currently Displaying Signs/Symptoms of Drug Intoxication Withdrawal: No Have you been hit, kicked, punched, or otherwise hurt by someone within the past year? If so, by whom?: No Do you feel safe in your current relationship?: Yes Is there a partner from a previous relationship who is making you feel unsafe now?: No Are you made to feel afraid or neglected: No Advance Directives: No Advance Directives Information Provided: Yes Do you have thoughts of harming others: None Do you have a plan to hurt others: No Plan Recently lost weight without trying: No service: No Current occupational status: unemployed Meds Allergies Allergy/AdvReac Type Severity Reaction Status Date / Time Iodinated Contrast Media Allergy Severe ANAPHYLAXIS Verified 04/18/20 00:44 [CONTRAST, IV] amoxicillin [AMOXICILLIN] Allergy Intermediate NAUSEA & Verified 04/18/20 00:44 VOMITING lamotrigine [From LAMICTAL] Allergy Intermediate RASH Verified 04/18/20 00:44 Sulfa (Sulfonamide Allergy Intermediate Rash Verified 04/18/20 00:44 Antibiotics) [SULFA (SULFONAMIDE ANTIBIOTICS)] sulfamethoxazole Allergy Intermediate Rash Verified 04/18/20 00:44 [From BACTRIM] trimethoprim [From BACTRIM] Allergy Intermediate Rash Verified 04/18/20 00:44 Home Medications Medication Instructions Recorded Confirmed Type Xifaxan 550 mg PO BID 01/20/20 04/18/20 History folic acid 1 mg PO DAILY 01/20/20 04/18/20 History potassium chloride 40 meq PO DAILY 01/20/20 04/18/20 History Flovent HFA 2 puff INHALATION BID 02/09/20 04/18/20 History albuterol sulfate 2 puff INHALATION Q4H PRN 02/09/20 04/18/20 History calcium carbonate [Antacid Ext Str 1 tab PO TID PRN 02/09/20 04/18/20 History (calcium carb)] thiamine HCl (vitamin B1) 100 mg PO DAILY 02/09/20 04/18/20 History baclofen 10 mg PO BID 02/13/20 04/18/20 History cetirizine 10 mg PO DAILY 02/19/20 04/18/20 History metformin 750 mg PO DAILY@1700 02/19/20 04/18/20 History pyridoxine (vitamin B6) 50 mg PO DAILY 02/19/20 04/18/20 History Stiolto Respimat 2 puff INHALATION DAILY 02/26/20 04/18/20 History acetaminophen 500 mg PO Q6H PRN 04/18/20 04/18/20 History buprenorphine 1 patch TRANSDERMAL QWEEK 04/18/20 04/18/20 History cholecalciferol (vitamin D3) 50 mcg PO DAILY 04/18/20 04/18/20 History [Vitamin D3] docusate sodium 100 mg PO BID PRN 04/18/20 04/18/20 History gabapentin 300 mg PO TID 04/18/20 04/18/20 History magnesium oxide 400 mg PO BID 04/18/20 04/18/20 History omeprazole 20 mg PO BID@0630,1630 04/18/20 04/18/20 History risperidone 1 mg PO BID 04/18/20 04/18/20 History spironolactone 25 mg PO DAILY 04/18/20 04/18/20 History torsemide 40 mg PO DAILY 04/18/20 04/18/20 History Physical Exam Vital Signs: Vital Signs: Last Vital Signs Temp 96.9 F 02/02/21 11:10 Pulse 115 H 04/19/20 11:10 Resp 20 04/19/20 11:10 BP 141/62 H 04/19/20 11:10 Pulse Ox 97 04/19/20 11:10 Body Mass Index 40.0 Results Labs CBC & Chem 7: 04/22/20 05:34 04/22/20 05:34 Labs: Short CBC 04/19/20 Range/Units 08:18 WBC 11.2 H (4.8-10.8) X10*3/uL Hgb 7.4 L (12.0-16.0) g/dl Hct 21.9 L (37-47) % Plt Count 61 L (160-400) X10*3/uL BMP 04/19/20 08:18 Sodium 130 L Potassium 3.6 Chloride 94 L Carbon Dioxide 29 BUN 10 Creatinine 0.69 Calcium 7.6 L Liver Function 04/19/20 Range/Units 08:18 Total Bilirubin 12.0 H (0.0-1.0) mg/dL Direct Bilirubin 6.0 H (0.0-0.5) mg/dL AST 38 H (5-31) U/L ALT 22 (0-31) U/L Alkaline Phosphatase 132 H D (39-117) U/L Albumin 2.2 L (3.5-5.0) g/dL Urine 04/19/20 Range/Units Unknown Urine Color YELLOW Urine Appearance HAZY Urine pH 6.5 (5.0-8.0) Ur Specific [place] 1.010 (1.005-1.025) Urine Protein NEG (NEG-TRACE) MG/DL Urine Glucose (UA) NEG (NEG) MG/DL Microbiology Microbiology Results: Microbiology 04/18/20 12:39 Blood - Venous Blood Culture - Preliminary No growth after 24 hours. 04/18/20 11:12 Blood - Venous Blood Culture - Preliminary No growth after 24 hours.
--- NOTE | 2020-04-19 15:49 | PM.GIPN ---
Subjective Subjective Date of Service: 04/21/20 Interval History: Asked to see patient due to her recurring ER visits and hospital admissions. She is again encephalopathic. I did a consult on this lady in JANUARY. (see record) Her GI doc is Dr. Dias [place] [facility] [place]. Most of her hx prior to her coming here then is @ [facility] [place]. She says she is still followed by Dr. Barrera. She is sluggish with responses and not very accurate with her answers. She has had a TIPS done @ [facility] [place] so she is more prone to encephalopathy. Review of record suggests she has been using street drugs (/03/29/20-?Heroin?) We have not followed her as an outpatient. Physical Exam Vital Signs: Vital Signs: Last Vital Signs Temp 98.7 F 04/19/20 15:19 Pulse 111 H 04/19/20 15:19 Resp 18 04/19/20 15:19 BP 120/55 L 04/19/20 15:19 Pulse Ox 99 04/19/20 15:19 Body Mass Index 40.0 Const: General: alert, anxious and confusion Nutritional Appearance: obese Orientation/consciousness: oriented to person and confusion Eyes: Sclerae: scleral abnormal (Icteric) Resp: Auscultation: clear to auscultation bilaterally and diminished lung sounds Cardio: Rate: regular rate Rhythm: regular rhythm GI: Inspection: Yes distended and Yes obesity Palpation (GI): Soft to palpation Neuro: General: oriented to person and confusion Extrem: General: Yes edema (tight bilateral) Objective Data Labs CBC & Chem 7: 04/21/20 06:02 04/21/20 06:02 Labs: Laboratory Results - last 24 hr 04/19/20 04/19/20 04/19/20 08:18 08:18 08:18 WBC 11.2 H RBC 2.15 L Hgb 7.4 L Hct 21.9 L MCV 101.9 H MCH 34.4 H MCHC 33.8 RDW 21.8 H Plt Count 61 L MPV 10.8 Immature Gran % (Auto) 0.5 H Neut % (Auto) 80.7 H Lymph % (Auto) 7.2 L [place] % (Auto) 10.1 Eos % (Auto) 1.2 Baso % (Auto) 0.3 Lymph # (Auto) 0.8 L [place] # (Auto) 1.1 Eos # (Auto) 0.1 Baso # (Auto) 0.0 Abs Immat Gran (auto) 0.06 H Absolute Neuts (auto) 9.1 H Absolute Nucleated RBC 0.000 Nucleated RBC % (auto) 0.0 PT INR Sodium 130 L Potassium 3.6 Chloride 94 L Carbon Dioxide 29 Anion Gap 11 L BUN 10 Creatinine 0.69 Estim Creat Clear Calc 96.0 Estimated GFR > 60 Random Glucose 103 Calcium 7.6 L Total Bilirubin 12.0 H Direct Bilirubin 6.0 H AST 38 H ALT 22 Alkaline Phosphatase 132 H D Ammonia 90 H Total Protein 4.7 L Albumin 2.2 L Urine Color Urine Appearance Urine pH Ur Specific [place] Urine Protein Urine Glucose (UA) Urine Ketones Urine Blood Urine Nitrite Ur Leukocyte Esterase Urine RBC Urine WBC Ur Squamous Epith Cells Urine Bacteria Urine Yeast Urine Opiates Screen Ur Barbiturates Screen Ur Phencyclidine Scrn Ur Amphetamines Screen U Benzodiazepines Scrn Urine Cocaine Screen U Marijuana (THC) Screen 04/19/20 04/19/20 04/19/20 08:55 Unknown Unknown WBC RBC Hgb Hct MCV MCH MCHC RDW Plt Count MPV Immature Gran % (Auto) Neut % (Auto) Lymph % (Auto) [place] % (Auto) Eos % (Auto) Baso % (Auto) Lymph # (Auto) [place] # (Auto) Eos # (Auto) Baso # (Auto) Abs Immat Gran (auto) Absolute Neuts (auto) Absolute Nucleated RBC Nucleated RBC % (auto) PT 28.6 H INR 2.4 H Sodium Potassium Chloride Carbon Dioxide Anion Gap BUN Creatinine Estim Creat Clear Calc Estimated GFR Random Glucose Calcium Total Bilirubin Direct Bilirubin AST ALT Alkaline Phosphatase Ammonia Total Protein Albumin Urine Color YELLOW Urine Appearance HAZY Urine pH 6.5 Ur Specific [place] 1.010 Urine Protein NEG Urine Glucose (UA) NEG Urine Ketones NEG Urine Blood 2+ H Urine Nitrite NEG Ur Leukocyte Esterase NEG Urine RBC 0-2 Urine WBC 0-2 Ur Squamous Epith Cells 1+ Urine Bacteria 1+ Urine Yeast TRACE Urine Opiates Screen Not Detected Ur Barbiturates Screen Not Detected Ur Phencyclidine Scrn Not Detected Ur Amphetamines Screen Not Detected U Benzodiazepines Scrn Not Detected Urine Cocaine Screen Not Detected U Marijuana (THC) Screen Not Detected Microbiology Microbiology Results: Microbiology 04/18/20 12:39 Blood - Venous Blood Culture - Preliminary No growth after 24 hours. 04/18/20 11:12 Blood - Venous Blood Culture - Preliminary No growth after 24 hours. Progress Note: A&P Assessment and plan (1) Hepatic encephalopathy: Status: Acute Assessment and Plan: Treat with Xifaxin and Lactulose. ? Repeat chest films--xray on 04/17 suggested patchy intersitial changes. EValuate and cover for infection. Monitor stools for bleeding. Trend bili and alk phos.--not sure how much might be related to hemolysis and increased metablic strain. Optimize protein calorie nutrition. (2) Advanced hepatic cirrhosis: Status: Acute Assessment and Plan: ? if component of Steatohepatitis. Gentle diuresis with monitor albumin, K+ and Mag. Do not know what patient's potential for transplant that has been documented. I think there has been some compliance concerns. Fall Risk Details Current Medications: Current Medications Generic Name Dose Route Start Last Admin Trade Name Freq PRN Reason Stop Dose Admin Albuterol Sulfate 2 puff 04/18/20 18:15 Albuterol Sulfate 90 Mcg 8 Gm Inhaler INHALE Q4H PRN Shortness Of Breath Baclofen 10 mg 04/18/20 21:00 04/19/20 08:26 Baclofen 10 Mg Tablet PO 10 mg BID LILLI Administration Calcium Carbonate 300 mg 04/18/20 18:15 Calcium Carbonate 750 Mg Tab.Chew PO TID PRN Heartburn Docusate Sodium 100 mg 04/18/20 18:15 Docusate Sodium 100 Mg Capsule PO BID PRN Constipation Fluticasone Propionate 2 puff 04/18/20 20:00 04/19/20 07:20 Fluticasone Propionate 250 Mcg Blst.W.Dev INHALE Not Given RBID [facility] Folic Acid 1 mg 04/19/20 09:00 04/19/20 08:26 Folic Acid 1 Mg Tablet PO 1 mg DAILY [facility] Administration Gabapentin 300 mg 04/18/20 21:00 04/19/20 14:51 Gabapentin 300 Mg Capsule PO 300 mg TID [facility] Administration Piperacillin Sod/Tazobactam 50 mls @ 100 mls/hr 04/18/20 18:15 04/19/20 14:01 Sod 3.375 gm/ Sodium Chloride IV Infused Q6H [facility] Infusion Lactulose 30 gm 04/18/20 21:00 04/19/20 15:28 Lactulose 20 Gm/30 Ml Solution PO Not Given TID [facility] Loratadine 10 mg 04/19/20 09:00 04/19/20 08:26 Loratadine 10 Mg Tablet PO 10 mg DAILY [facility] Administration Magnesium Oxide 400 mg 04/18/20 21:00 04/19/20 08:23 Magnesium Oxide 400 Mg Tablet PO 400 mg BID [facility] Administration Non-Formulary Medication 2 puff 04/19/20 09:00 Tiotropium-Olodaterol [Stiolto Respimat] INHALE DAILY [facility] Non-Formulary Medication 1 patch 04/19/20 14:15 Buprenorphine TRANSDERMA QWEEK [facility] Omeprazole 20 mg 04/19/20 06:30 04/19/20 05:34 Omeprazole 20 Mg Capsule. PO 20 mg BID@0630,9870 [facility] Administration Ondansetron HCl 4 mg 04/18/20 18:15 Ondansetron Hcl 4 Mg/2 Ml Vial IVPUSH Q8H PRN Nausea and Vomiting Oxycodone HCl 5 mg 04/19/20 14:12 04/19/20 14:50 Oxycodone Hcl Immed Release 5 Mg Tablet PO 5 mg Q4H PRN Administration severe pain Pharmacy Consult 1 each 04/18/20 12:57 Consult Rx Perform Med Rec MISCELLANE ONCE PRN Consult order Potassium Chloride 40 meq 04/19/20 09:00 04/19/20 08:23 Potassium Chloride Er 20 Meq Tab.Er.Prt PO 40 meq DAILY [facility] Administration Pyridoxine HCl 50 mg 04/19/20 09:00 04/19/20 08:27 Pyridoxine Hcl (Vitamin B6) 50 Mg Tablet PO 50 mg DAILY [facility] Administration Rifaximin 550 mg 04/18/20 21:00 04/19/20 08:26 Rifaximin 550 Mg Tablet PO 550 mg BID [facility] Administration Risperidone 1 mg 04/18/20 21:00 04/19/20 08:25 Risperidone 1 Mg Tablet PO 1 mg BID [facility] Administration Sodium Chloride 3 ml 04/19/20 00:00 04/19/20 08:23 0.9 % Sodium Chloride Flush 3 Ml Syringe IVFLUSH 3 ml QSHIFT [facility] Administration Spironolactone 50 mg 04/20/20 09:00 Spironolactone 25 Mg Tablet PO DAILY [facility] Protocol Thiamine HCl 100 mg 04/19/20 09:00 04/19/20 08:26 Thiamine Hcl 100 Mg Tablet PO 100 mg DAILY [facility] Administration Torsemide 40 mg 04/19/20 09:00 04/19/20 08:24 Torsemide 20 Mg Tablet PO 40 mg DAILY [facility] Administration Protocol Vitamin D 50 mcg 04/19/20 09:00 04/19/20 08:25 Cholecalciferol (Vitamin D3) 25 Mcg Tablet PO 50 mcg DAILY [facility] Administration Time Spent With Patient Time: Total time spent is greater than 50% in coordination of care (as documented) at patient's floor/unit and/or counseling patient: Time with patient: 15 - 24 minutes
--- NOTE | 2020-04-19 16:30 | P.PNIM_ITS ---
Subjective Subjective Date of Service: 04/19/20 Interval History: less confused worsening leg swelling causing pain no fever no hematochezia or melena Physical Exam Vital Signs: Vital Signs: Last Vital Signs Temp 98.7 F 04/19/20 15:19 Pulse 111 H 04/19/20 15:19 Resp 18 04/19/20 15:19 BP 120/55 L 04/19/20 15:19 Pulse Ox 99 04/19/20 15:19 Body Mass Index 40.0 Gen: chronically ill-appearing HEENT: Icteric sclera Neck: supple Lungs: clear to auscultation bilaterally Heart: regular rate and rhythm, no murmurs Abd: soft, non-tender Ext: 2+ pitting bipedal edema Skin: warm/well-perfused, scattered ecchymoses Neuro: alert and oriented x3, no focal findings, sánchez asterixis Psych: appropriate affect Objective Data Current Medications Generic Name Dose Route Start Last Admin Trade Name Freq PRN Reason Stop Dose Admin Albuterol Sulfate 2 puff 04/18/20 18:15 Albuterol Sulfate 90 Mcg 8 Gm Inhaler INHALE Q4H PRN Shortness Of Breath Baclofen 10 mg 04/18/20 21:00 04/19/20 08:26 Baclofen 10 Mg Tablet PO 10 mg BID [facility] Administration Calcium Carbonate 300 mg 04/18/20 18:15 Calcium Carbonate 750 Mg Tab.Chew PO TID PRN Heartburn Docusate Sodium 100 mg 04/18/20 18:15 Docusate Sodium 100 Mg Capsule PO BID PRN Constipation Fluticasone Propionate 2 puff 04/18/20 20:00 04/19/20 07:20 Fluticasone Propionate 250 Mcg Blst.W.Dev INHALE Not Given RBID [facility] Folic Acid 1 mg 04/19/20 09:00 04/19/20 08:26 Folic Acid 1 Mg Tablet PO 1 mg DAILY [facility] Administration Gabapentin 300 mg 04/18/20 21:00 04/19/20 14:51 Gabapentin 300 Mg Capsule PO 300 mg TID [facility] Administration Piperacillin Sod/Tazobactam 50 mls @ 100 mls/hr 04/18/20 18:15 04/19/20 14:01 Sod 3.375 gm/ Sodium Chloride IV Infused Q6H [facility] Infusion Lactulose 30 gm 04/18/20 21:00 04/19/20 15:28 Lactulose 20 Gm/30 Ml Solution PO Not Given TID [facility] Loratadine 10 mg 04/19/20 09:00 04/19/20 08:26 Loratadine 10 Mg Tablet PO 10 mg DAILY [facility] Administration Magnesium Oxide 400 mg 04/18/20 21:00 04/19/20 08:23 Magnesium Oxide 400 Mg Tablet PO 400 mg BID [facility] Administration Non-Formulary Medication 2 puff 04/19/20 09:00 Tiotropium-Olodaterol [Stiolto Respimat] INHALE DAILY [facility] Non-Formulary Medication 1 patch 04/19/20 14:15 Buprenorphine TRANSDERMA QWEEK [facility] Omeprazole 20 mg 04/19/20 06:30 04/19/20 05:34 Omeprazole 20 Mg Capsule. PO 20 mg BID@0630,1630 [facility] Administration Ondansetron HCl 4 mg 04/18/20 18:15 Ondansetron Hcl 4 Mg/2 Ml Vial IVPUSH Q8H PRN Nausea and Vomiting Oxycodone HCl 5 mg 04/19/20 14:12 04/19/20 14:50 Oxycodone Hcl Immed Release 5 Mg Tablet PO 5 mg Q4H PRN Administration severe pain Pharmacy Consult 1 each 04/18/20 12:57 Consult Rx Perform Med Rec MISCELLANE ONCE PRN Consult order Potassium Chloride 40 meq 04/19/20 09:00 04/19/20 08:23 Potassium Chloride Er 20 Meq Tab.Er.Prt PO 40 meq DAILY [facility] Administration Pyridoxine HCl 50 mg 04/19/20 09:00 04/19/20 08:27 Pyridoxine Hcl (Vitamin B6) 50 Mg Tablet PO 50 mg DAILY [facility] Administration Rifaximin 550 mg 04/18/20 21:00 04/19/20 08:26 Rifaximin 550 Mg Tablet PO 550 mg BID [facility] Administration Risperidone 1 mg 04/18/20 21:00 04/19/20 08:25 Risperidone 1 Mg Tablet PO 1 mg BID [facility] Administration Sodium Chloride 3 ml 04/19/20 00:00 04/19/20 08:23 0.9 % Sodium Chloride Flush 3 Ml Syringe IVFLUSH 3 ml QSHIFT [facility] Administration Spironolactone 50 mg 04/20/20 09:00 Spironolactone 25 Mg Tablet PO DAILY [facility] Protocol Thiamine HCl 100 mg 04/19/20 09:00 02/02/21 08:26 Thiamine Hcl 100 Mg Tablet PO 100 mg DAILY [facility] Administration Torsemide 40 mg 04/19/20 09:00 04/19/20 08:24 Torsemide 20 Mg Tablet PO 40 mg DAILY [facility] Administration Protocol Vitamin D 50 mcg 04/19/20 09:00 04/19/20 08:25 Cholecalciferol (Vitamin D3) 25 Mcg Tablet PO 50 mcg DAILY [facility] Administration Labs CBC & Chem 7: 04/19/20 08:18 04/19/20 08:18 Labs: Laboratory Results - last 24 hr 04/19/20 04/19/20 04/19/20 08:18 08:18 08:18 WBC 11.2 H RBC 2.15 L Hgb 7.4 L Hct 21.9 L MCV 101.9 H MCH 34.4 H MCHC 33.8 RDW 21.8 H Plt Count 61 L MPV 10.8 Immature Gran % (Auto) 0.5 H Neut % (Auto) 80.7 H Lymph % (Auto) 7.[address] [place] % (Auto) 10.1 Eos % (Auto) 1.2 Baso % (Auto) 0.3 Lymph # (Auto) 0.[address] [place] # (Auto) 1.1 Eos # (Auto) 0.1 Baso # (Auto) 0.0 Abs Immat Gran (auto) 0.06 H Absolute Neuts (auto) 9.1 H Absolute Nucleated RBC 0.000 Nucleated RBC % (auto) 0.0 PT INR Sodium 130 L Potassium 3.6 Chloride 94 L Carbon Dioxide 29 Anion Gap 11 L BUN 10 Creatinine 0.69 Estim Creat Clear Calc 96.0 Estimated GFR > 60 Random Glucose 103 Calcium 7.6 L Total Bilirubin 12.0 H Direct Bilirubin 6.0 H AST 38 H ALT 22 Alkaline Phosphatase 132 H D Ammonia 90 H Total Protein 4.7 L Albumin 2.2 L Urine Color Urine Appearance Urine pH Ur Specific [place] Urine Protein Urine Glucose (UA) Urine Ketones Urine Blood Urine Nitrite Ur Leukocyte Esterase Urine RBC Urine WBC Ur Squamous Epith Cells Urine Bacteria Urine Yeast Urine Opiates Screen Ur Barbiturates Screen Ur Phencyclidine Scrn Ur Amphetamines Screen U Benzodiazepines Scrn Urine Cocaine Screen U Marijuana (THC) Screen 04/19/20 04/19/20 04/19/20 08:55 Unknown Unknown WBC RBC Hgb Hct MCV MCH MCHC RDW Plt Count MPV Immature Gran % (Auto) Neut % (Auto) Lymph % (Auto) [place] % (Auto) Eos % (Auto) Baso % (Auto) Lymph # (Auto) [place] # (Auto) Eos # (Auto) Baso # (Auto) Abs Immat Gran (auto) Absolute Neuts (auto) Absolute Nucleated RBC Nucleated RBC % (auto) PT 28.6 H INR 2.4 H Sodium Potassium Chloride Carbon Dioxide Anion Gap BUN Creatinine Estim Creat Clear Calc Estimated GFR Random Glucose Calcium Total Bilirubin Direct Bilirubin AST ALT Alkaline Phosphatase Ammonia Total Protein Albumin Urine Color YELLOW Urine Appearance HAZY Urine pH 6.5 Ur Specific [place] 1.010 Urine Protein NEG Urine Glucose (UA) NEG Urine Ketones NEG Urine Blood 2+ H Urine Nitrite NEG Ur Leukocyte Esterase NEG Urine RBC 0-2 Urine WBC 0-2 Ur Squamous Epith Cells 1+ Urine Bacteria 1+ Urine Yeast TRACE Urine Opiates Screen Not Detected Ur Barbiturates Screen Not Detected Ur Phencyclidine Scrn Not Detected Ur Amphetamines Screen Not Detected U Benzodiazepines Scrn Not Detected Urine Cocaine Screen Not Detected U Marijuana (THC) Screen Not Detected Microbiology Microbiology Results: Microbiology 04/18/20 12:39 Blood - Venous Blood Culture - Preliminary No growth after 24 hours. 04/18/20 11:12 Blood - Venous Blood Culture - Preliminary No growth after 24 hours. Assessment and Plan (1) Hepatic encephalopathy: Status: Acute (2) Abnormal CT scan, gastrointestinal tract: Status: Acute Assessment and Plan: 54yo F with decompensated EtOH cirrhosis s/p TIPS, DM2, COPD, chronic back pain, bipolar disorder, opioid abuse admitted for hepatic encephalopathy, question of intraperitoneal air # hepatic encephalopathy - continue lactulose + rifaximin # intraperitoneal air - appreciate Surgical consult. no inflammatory changes in GI tract. if this is a small focus of air, it appears benign- ?bleb from serosa or omentum. regardl,ess not a surgical candidate. serial abd exams # hyponatremia - chronic, due to cirrhosis; improving. continue fluid restriction 1500 mL/d. recheck BMP in am # anemia - likely due to cirrhosis. on empiric PPI. T+S and monitor CBC. had TIPS in past so should not have varices # thrombocytopenia - due to cirrhosis. avoid heparin # edema - continue torsemide, increase spironolactone, monitor BMP # cirrhosis, decompensated. MELD 29 - avoid EtOH - sees Dr Dias at [facility] [place] outpt transplant evaluation - maintain sobriety # chronic pain disorder - gabapentin # mood disorder - continue risperidone # opioid use disorder - continue Butrans patch or hospital formulary equivalent # DM2 - d/c MTF, last A1c only 4.1 # VTE ppx - SCDs, avoid heparin
[2020-04-19] MEDS: Fluticasone Propionate 250 MCG BLST.W.DEV 2 PUFF INHALE (19:57)
[2020-04-19] MEDS: Albuterol Sulfate 90 MCG 8 GM INHALER 2 PUFF INHALE (19:57)
[2020-04-20] MEDS: oxyCODONE HCl Immed Release 5 MG TABLET PO ×2 (00:23→04:47)
[2020-04-20 03:31] VITALS: BP 125/71; PULSE 116; RESP 20; TEMP 36.6; O2SAT 97
[2020-04-20] MEDS: Piperacillin Sodium/Tazobactam 3.375 GM in 0.9 % Sodium Chloride 50 ML IV ×4 (06:07→23:44)
[2020-04-20] MEDS: Omeprazole 20 MG CAPSULE.DR PO ×2 (06:07→15:46)
--- NOTE | 2020-04-20 06:35 | PC.NURSE ---
[id number]; Patient high fall risk, pt refusing bed alarm, telesitter. Educated patient on importance of safety and to use call orellana when patient needs assistance. [phone]; Patient agreed to have the bed alarm in place, re educated on the use of call orellana, frequent additional checks for patient safety. Patient more cooperative.
[2020-04-20 06:48] LABS: Eosinophils Absolute Auto 0.1 X10*3/uL (0.0-0.4); Hemoglobin 7.5 g/dl (12.0-16.0); MANUAL DIFF FLAG SCAN; PLT CLUMP 1; SCAN SMEAR FLAG 1
[2020-04-20 06:50] LABS: Basophils Percent Auto 0.3 % (0-2); Hematocrit 22.5 % (37-47); Imm Gran Abs Auto 0.09 X10*3/uL (0.00-0.03); Imm Gran Pct Auto 0.8 % (0.0-0.4); Lymphocytes Absolute Auto 0.7 X10*3/uL (1.2-4.9); Lymphocytes Percent Auto 5.7 % (20-40); Mean Corpuscular HGB Conc 33.3 g/dl (31.0-35.0); Mean Corpuscular Hemoglobin 34.1 pg (27.0-33.0); Mean Corpuscular Volume 102.3 fL (80-98); Mean Platelet Volume 11.2 fL (9.4-12.3); Monocytes Absolute Auto 1.1 X10*3/uL (0.1-1.2); Neutrophils Absolute Auto 9.9 X10*3/uL (2.0-8.3); Neutrophils Percent Auto 83.2 % (45-73); Red Cell Distribution Width 20.9 % (11.0-16.0)
[2020-04-20 06:53] LABS: INTERNATIONAL NORM RATIO 2.3 (0.9-1.1); Prothrombin Time 27.6 SEC (10.8-13.0)
[2020-04-20 07:14] LABS: Platelet Count 67 X10*3/uL (160-400)
[2020-04-20 07:27] VITALS: BP 132/74; PULSE 110; RESP 20; TEMP 36.6; O2SAT 97
[2020-04-20 07:31] LABS: Alanine Aminotransferase 27 U/L (0-31); Albumin Level 2.6 g/dL (3.5-5.0); Alkaline Phosphatase 157 U/L (39-117); Anion Gap 16 (12-20); Aspartate Amino Transferase 51 U/L (5-31); Bilirubin Total 17.1 mg/dL (0.0-1.0); Blood Urea Nitrogen 9 mg/dL (9-16); Calcium 7.6 mg/dL (8.4-10.2); Carbon Dioxide 25 mmol/L (22-29); Chloride 94 mmol/L (96-108); Creatinine Clr Calc Pharmacy 108.5; Estimated Glomerular Filt Rate > 60; Glucose Random 118 mg/dL (60-115); Magnesium 1.5 mg/dL (1.6-2.6); Potassium 2.9 mmol/L (3.3-5.1); Sodium 132 mmol/L (135-145); Total Protein 5.4 g/dL (6.5-8.0)
[2020-04-20] MEDS: Magnesium Sulfate/H2O 2 GM/50 ML PIGGYBACK IV (10:48)
[2020-04-20] MEDS: 0.9 % Sodium Chloride Flush 3 ML SYRINGE IVFLUSH ×2 (10:48→20:56)
[2020-04-20] MEDS: Thiamine HCL 100 MG TABLET PO (10:49)
[2020-04-20] MEDS: Cholecalciferol (Vitamin D3) 25 MCG TABLET 50 MCG PO (10:49)
[2020-04-20] MEDS: Lactulose 20 GM/30 ML SOLUTION 30 GM PO ×3 (10:49→20:49)
[2020-04-20] MEDS: Gabapentin 300 MG CAPSULE PO ×3 (10:49→20:48)
[2020-04-20] MEDS: risperiDONE 1 MG TABLET PO ×2 (10:49→20:49)
[2020-04-20] MEDS: Magnesium Oxide 400 MG TABLET PO ×2 (10:50→20:48)
[2020-04-20] MEDS: Torsemide 20 MG TABLET 40 MG PO (10:50)
[2020-04-20] MEDS: rifAXIMin 550 MG TABLET PO ×2 (10:50→20:48)
[2020-04-20] MEDS: Folic Acid 1 MG TABLET PO (10:50)
[2020-04-20] MEDS: Baclofen 10 MG TABLET PO ×2 (10:50→20:48)
[2020-04-20] MEDS: Loratadine 10 MG TABLET PO (10:51)
[2020-04-20] MEDS: Spironolactone 25 MG TABLET 50 MG PO (10:51)
[2020-04-20] MEDS: Pyridoxine HCl (Vitamin B6) 50 MG TABLET PO (10:51)
[2020-04-20] MEDS: Potassium Chloride ER 20 MEQ TAB.ER.PRT 40 MEQ PO ×2 (10:52→13:44)
[2020-04-20 11:16] VITALS: BP 140/78; PULSE 110; RESP 22; TEMP 35.7; O2SAT 95
[2020-04-20] MEDS: Potassium Chloride/H20 10 MEQ/100 ML PIGGYBACK 100 MEQ IV ×4 (13:43→20:48)
--- NOTE | 2020-04-20 14:40 | P.PNIM_ITS ---
Subjective Subjective Date of Service: 04/20/20 Interval History: somnolent no GI bleeding Physical Exam Vital Signs: Vital Signs: Last Vital Signs Temp 96.3 F L 04/20/20 11:16 Pulse 110 H 04/20/20 11:16 Resp 22 H 04/20/20 11:16 BP 140/78 H 04/20/20 11:16 Pulse Ox 95 04/20/20 11:16 Body Mass Index 40.0 Gen: chronically ill-appearing, somnolent HEENT: Icteric sclera Neck: supple Lungs: clear to auscultation bilaterally Heart: regular rate and rhythm, no murmurs Abd: soft, non-tender Ext: 1+ pitting bipedal edema Skin: warm/well-perfused, scattered ecchymoses, jaundiced Neuro: somnolent, sánchez asterixis Psych: appropriate affect Objective Data Current Medications Generic Name Dose Route Start Last Admin Trade Name Freq PRN Reason Stop Dose Admin Albuterol Sulfate 2 puff 04/18/20 18:15 04/19/20 19:57 Albuterol Sulfate 90 Mcg 8 Gm Inhaler INHALE 2 puff Q4H PRN Administration Shortness Of Breath Baclofen 10 mg 04/18/20 21:00 04/20/20 10:50 Baclofen 10 Mg Tablet PO 10 mg BID [facility]ILLI Administration Calcium Carbonate 300 mg 04/18/20 18:15 Calcium Carbonate 750 Mg Tab.Chew PO TID PRN Heartburn Docusate Sodium 100 mg 04/18/20 18:15 Docusate Sodium 100 Mg Capsule PO BID PRN Constipation Fluticasone Propionate 2 puff 04/18/20 20:00 04/20/20 07:45 Fluticasone Propionate 250 Mcg Blst.W.Dev INHALE Not Given RBID [facility] Folic Acid 1 mg 04/19/20 09:00 04/20/20 10:50 Folic Acid 1 Mg Tablet PO 1 mg DAILY [facility] Administration Gabapentin 300 mg 04/18/20 21:00 04/20/20 10:49 Gabapentin 300 Mg Capsule PO 300 mg TID [facility] Administration Piperacillin Sod/Tazobactam 50 mls @ 100 mls/hr 04/18/20 18:15 04/20/20 13:20 Sod 3.375 gm/ Sodium Chloride IV Infused Q6H [facility] Infusion Potassium Chloride 10 meq in 100 mls @ 100 mls/hr 04/20/20 13:00 04/20/20 13:43 IV 04/20/20 16:59 100 mls/hr Q1H [facility] Administration Lactulose 30 gm 04/18/20 21:00 04/20/20 10:49 Lactulose 20 Gm/30 Ml Solution PO 30 gm TID [facility] Administration Loratadine 10 mg 04/19/20 09:00 04/20/20 10:51 Loratadine 10 Mg Tablet PO 10 mg DAILY [facility] Administration Magnesium Oxide 400 mg 04/18/20 21:00 04/20/20 10:50 Magnesium Oxide 400 Mg Tablet PO 400 mg BID [facility] Administration Non-Formulary Medication 2 puff 04/19/20 09:00 Tiotropium-Olodaterol [Stiolto Respimat] INHALE DAILY [facility] Non-Formulary Medication 1 patch 04/19/20 14:15 Buprenorphine TRANSDERMA QWEEK [facility] Omeprazole 20 mg 04/19/20 06:30 04/20/20 06:07 Omeprazole 20 Mg Capsule.Dr PO 20 mg BID@0630,1630 [facility] Administration Ondansetron HCl 4 mg 04/18/20 18:15 Ondansetron Hcl 4 Mg/2 Ml Vial IVPUSH Q8H PRN Nausea and Vomiting Oxycodone HCl 5 mg 04/19/20 14:12 04/20/20 04:47 Oxycodone Hcl Immed Release 5 Mg Tablet PO 5 mg Q4H PRN Administration severe pain Pharmacy Consult 1 each 04/18/20 12:57 Consult Rx Perform Med Rec MISCELLANE ONCE PRN Consult order Potassium Chloride 40 meq 04/19/20 09:00 04/20/20 10:52 Potassium Chloride Er 20 Meq Tab.Er.Prt PO 40 meq DAILY [facility] Administration Pyridoxine HCl 50 mg 04/19/20 09:00 04/20/20 10:51 Pyridoxine Hcl (Vitamin B6) 50 Mg Tablet PO 50 mg DAILY [facility] Administration Rifaximin 550 mg 04/18/20 21:00 04/20/20 10:50 Rifaximin 550 Mg Tablet PO 550 mg BID [facility] Administration Risperidone 1 mg 04/18/20 21:00 04/20/20 10:49 Risperidone 1 Mg Tablet PO 1 mg BID [facility] Administration Sodium Chloride 3 ml 04/19/20 00:00 04/20/20 10:48 0.9 % Sodium Chloride Flush 3 Ml Syringe IVFLUSH 3 ml QSHIFT [facility] Administration Spironolactone 50 mg 04/20/20 09:00 04/20/20 10:51 Spironolactone 25 Mg Tablet PO 50 mg DAILY [facility] Administration Protocol Thiamine HCl 100 mg 04/19/20 09:00 04/20/20 10:49 Thiamine Hcl 100 Mg Tablet PO 100 mg DAILY [facility] Administration Torsemide 40 mg 04/19/20 09:00 04/20/20 10:50 Torsemide 20 Mg Tablet PO 40 mg DAILY [facility] Administration Protocol Vitamin D 50 mcg 04/19/20 09:00 04/20/20 10:49 Cholecalciferol (Vitamin D3) 25 Mcg Tablet PO 50 mcg DAILY [facility] Administration Labs CBC & Chem 7: 04/20/20 05:49 04/20/20 05:48 Labs: Laboratory Results - last 24 hr 04/19/20 04/20/20 04/20/20 19:30 05:48 05:49 WBC RBC Hgb Hct MCV MCH MCHC RDW Plt Count MPV Immature Gran % (Auto) Neut % (Auto) Lymph % (Auto) [place] % (Auto) Eos % (Auto) Baso % (Auto) Lymph # (Auto) [place] # (Auto) Eos # (Auto) Baso # (Auto) Abs Immat Gran (auto) Absolute Neuts (auto) Absolute Nucleated RBC Nucleated RBC % (auto) Smear Tech's Comments PT 27.6 H INR 2.3 H Sodium 132 L Potassium 2.9 L Chloride 94 L Carbon Dioxide 25 Anion Gap 16 BUN 9 Creatinine 0.61 Estim Creat Clear Calc 108.5 Estimated GFR > 60 Random Glucose 118 H Calcium 7.6 L Magnesium 1.5 L Total Bilirubin 17.1 H AST 51 H ALT 27 Alkaline Phosphatase 157 H Total Protein 5.4 L Albumin 2.6 L Blood Type A Negative Antibody Screen NEGATIVE 04/20/20 05:49 WBC 12.0 H RBC 2.20 L Hgb 7.5 L Hct 22.5 L MCV 102.3 H MCH 34.1 H MCHC 33.3 RDW 20.9 H Plt Count 67 L MPV 11.2 Immature Gran % (Auto) 0.8 H Neut % (Auto) 83.2 H Lymph % (Auto) 5.7 L [place] % (Auto) 9.0 Eos % (Auto) 1.0 Baso % (Auto) 0.3 Lymph # (Auto) 0.7 L [place] # (Auto) 1.1 Eos # (Auto) 0.1 Baso # (Auto) 0.0 Abs Immat Gran (auto) 0.09 H Absolute Neuts (auto) 9.9 H Absolute Nucleated RBC 0.000 Nucleated RBC % (auto) 0.0 Smear Tech's Comments VERIFIED PT INR Sodium Potassium Chloride Carbon Dioxide Anion Gap BUN Creatinine Estim Creat Clear Calc Estimated GFR Random Glucose Calcium Magnesium Total Bilirubin AST ALT Alkaline Phosphatase Total Protein Albumin Blood Type Antibody Screen Microbiology Microbiology Results: Microbiology 04/18/20 11:12 Blood - Venous Blood Culture - Preliminary No growth after 48 hours. 04/18/20 12:39 Blood - Venous Blood Culture - Preliminary No growth after 24 hours. Assessment and Plan (1) Hepatic encephalopathy: Status: Acute (2) Abnormal CT scan, gastrointestinal tract: Status: Acute Assessment and Plan: hospital d#3 54yo F with decompensated EtOH cirrhosis s/p TIPS, DM2, COPD, chronic back pain, bipolar disorder, opioid abuse admitted for hepatic encephalopathy, question of intraperitoneal air # hepatic encephalopathy - continue lactulose + rifaximin # intraperitoneal air - benign per Surg, possibly ble from serosa/omentum. no inflammatory changes in GI tract. not a surgical candidate due to advanced cirrhosis # hyponatremia - chronic, due to cirrhosis; improving. continue fluid restriction 1500 mL/d. recheck BMP in am # hypoMg # hypoNa - replete and recheck lytes in AM # anemia - likely due to cirrhosis. on empiric PPI. T+S active. had TIPS in past so should not have varices # thrombocytopenia - due to cirrhosis. avoid heparin. stable. # edema - continue torsemide, increased spironolactone, monitor BMP # cirrhosis, decompensated. MELD 29 - avoid EtOH - sees Dr Dias at [facility] [place] - outpt transplant evaluation - maintain sobriety # chronic pain disorder - gabapentin # mood disorder - continue risperidone # opioid use disorder - continue Butrans patch or hospital formulary equivalent # DM2 - d/c MTF, last A1c only 4.1 # VTE ppx - SCDs, avoid heparin
[2020-04-20 15:35] VITALS: BP 117/57; PULSE 100; RESP 23; TEMP 35.9; O2SAT 98
--- NOTE | 2020-04-20 16:26 | PM.PNGS ---
Subjective Subjective Date of Service: 04/20/20 Interval history: remains confused has multiple complaints - pain on abdomen, back and legs Physical Exam Vital Signs: Vital Signs: Last Vital Signs Temp 96.6 F L 04/20/20 15:35 Pulse 100 04/20/20 15:35 Resp 23 H 04/20/20 15:35 BP 117/57 L 04/20/20 15:35 Pulse Ox 98 04/20/20 15:35 Body Mass Index 40.0 Chemistry 04/18/20 04/19/20 04/20/20 11:12 08:18 05:48 Sodium 127 L 130 L 132 L Potassium 4.0 3.6 2.9 L Carbon Dioxide 32 H 29 25 BUN 8 L 10 9 Creatinine 0.78 0.69 0.61 Calcium 7.6 L 7.6 L 7.6 L Hematology 04/18/20 04/19/20 04/20/20 11:12 08:18 05:49 WBC 14.2 H 11.2 H 12.0 H Hgb 8.9 L 7.4 L 7.5 L Plt Count 74 L 61 L 67 L Urinalysis 04/19/20 Unknown Urine Color YELLOW Urine Appearance HAZY Urine pH 6.5 Ur Specific Gravit y 1.010 Urine Protein NEG Urine Glucose (UA) NEG Urine Ketones NEG Urine Blood 2+ H Urine Nitrite NEG Ur Leukocyte Constanza ase NEG Urine RBC 0-2 Urine WBC 0-2 Ur Squamous Epith Cells 1+ Const: Other: confused, deeply icteric Eyes: Sclerae: scleral abnormal (jaundiced) Resp: Effort & Inspection: normal respiratory effort GI: Palpation (GI): Soft to palpation, no guarding and not rigid Progress Note: A&P Assessment and plan (1) Abnormal CT scan, gastrointestinal tract: Status: Acute Assessment and Plan: small locus of air in ascites on admission CT abd remains benign no fever WBC stable likely benign pneumoperitoneum pt has advanced liver ds - not a surgical candidate if this became necessary I had discussed the above with her HCP Malena - she had stated that she does not want her to have any major surgery remains encephalopathic Fall Risk Details Current Medications: Current Medications Generic Name Dose Route Start Last Admin Trade Name Freq PRN Reason Stop Dose Admin Albuterol Sulfate 2 puff 04/18/20 18:15 04/19/20 19:57 Albuterol Sulfate 90 Mcg 8 Gm Inhaler INHALE 2 puff Q4H PRN Administration Shortness Of Breath Baclofen 10 mg 04/18/20 21:00 04/20/20 10:50 Baclofen 10 Mg Tablet PO 10 mg BID ON LICENSE OF [facility] Administration Calcium Carbonate 300 mg 04/18/20 18:15 Calcium Carbonate 750 Mg Tab.Chew PO TID PRN Heartburn Docusate Sodium 100 mg 04/18/20 18:15 Docusate Sodium 100 Mg Capsule PO BID PRN Constipation Fluticasone Propionate 2 puff 04/18/20 20:00 04/20/20 07:45 Fluticasone Propionate 250 Mcg Blst.W.Dev INHALE Not Given RBID ON LICENSE OF [facility] Folic Acid 1 mg 04/19/20 09:00 04/20/20 10:50 Folic Acid 1 Mg Tablet PO 1 mg DAILY ON [facility] OF [facility] Administration Gabapentin 300 mg 04/18/20 21:00 04/20/20 15:46 Gabapentin 300 Mg Capsule PO 300 mg TID ON LICENSE OF [facility] Administration Piperacillin Sod/Tazobactam 50 mls @ 100 mls/hr 04/18/20 18:15 04/20/20 13:20 Sod 3.375 gm/ Sodium Chloride IV Infused Q6H ON LICENSE OF [facility] Infusion Potassium Chloride 10 meq in 100 mls @ 100 mls/hr 04/20/20 13:00 04/20/20 15:12 IV 04/20/20 16:59 100 mls/hr Q1H [facility] Administration Lactulose 30 gm 04/18/20 21:00 04/20/20 15:46 Lactulose 20 Gm/30 Ml Solution PO 30 gm TID ON LICENSE OF [facility] Administration Loratadine 10 mg 04/19/20 09:00 04/20/20 10:51 Loratadine 10 Mg Tablet PO 10 mg DAILY [facility] Administration Magnesium Oxide 400 mg 04/18/20 21:00 04/20/20 10:50 Magnesium Oxide 400 Mg Tablet PO 400 mg BID ON LICENSE OF [facility] Administration Non-Formulary Medication 2 puff 04/19/20 09:00 Tiotropium-Olodaterol [Stiolto Respimat] INHALE DAILY ON LICENSE OF [facility] Non-Formulary Medication 1 patch 04/19/20 14:15 Buprenorphine TRANSDERMA QWEEK ON LICENSE OF [facility] Omeprazole 20 mg 04/19/20 06:30 04/20/20 15:46 Omeprazole 20 Mg Capsule.Dr PO 20 mg BID@0630,1630 ON LICENSE OF [facility] Administration Ondansetron HCl 4 mg 04/18/20 18:15 Ondansetron Hcl 4 Mg/2 Ml Vial IVPUSH Q8H PRN Nausea and Vomiting Oxycodone HCl 5 mg 04/19/20 14:12 04/20/20 04:47 Oxycodone Hcl Immed Release 5 Mg Tablet PO 5 mg Q4H PRN Administration severe pain Pharmacy Consult 1 each 04/18/20 12:57 Consult Rx Perform Med Rec MISCELLANE ONCE PRN Consult order Potassium Chloride 40 meq 04/19/20 09:00 04/20/20 10:52 Potassium Chloride Er 20 Meq Tab.Er.Prt PO 40 meq DAILY [facility] Administration Pyridoxine HCl 50 mg 04/19/20 09:00 04/20/20 10:51 Pyridoxine Hcl (Vitamin B6) 50 Mg Tablet PO 50 mg DAILY [facility] Administration Rifaximin 550 mg 04/18/20 21:00 04/20/20 10:50 Rifaximin 550 Mg Tablet PO 550 mg BID [facility] Administration Risperidone 1 mg 04/18/20 21:00 04/20/20 10:49 Risperidone 1 Mg Tablet PO 1 mg BID [facility] Administration Sodium Chloride 3 ml 04/19/20 00:00 04/20/20 15:47 0.9 % Sodium Chloride Flush 3 Ml Syringe IVFLUSH Not Given QSHIFT [facility] Spironolactone 50 mg 04/20/20 09:00 04/20/20 10:51 Spironolactone 25 Mg Tablet PO 50 mg DAILY [facility] Administration Protocol Thiamine HCl 100 mg 04/19/20 09:00 04/20/20 10:49 Thiamine Hcl 100 Mg Tablet PO 100 mg DAILY [facility] Administration Torsemide 40 mg 04/19/20 09:00 04/20/20 10:50 Torsemide 20 Mg Tablet PO 40 mg DAILY [facility] Administration Protocol Vitamin D 50 mcg 04/19/20 09:00 04/20/20 10:49 Cholecalciferol (Vitamin D3) 25 Mcg Tablet PO 50 mcg DAILY [facility] Administration Time Spent With Patient Time: Total time spent is greater than 50% in coordination of care (as documented) at patient's floor/unit and/or counseling patient: Time with patient: 15 - 24 minutes
[2020-04-20 19:37] VITALS: BP 144/57; PULSE 110; RESP 22; TEMP 35.9; O2SAT 97
[2020-04-20 23:14] VITALS: BP 128/60; PULSE 100; RESP 20; TEMP 36; O2SAT 96
[2020-04-21] VITALS (9 sets, daily range): BP systolic 104–150; BP diastolic 40–62; PULSE 81–112; RESP 18–21; TEMP -13.9–36.6; O2SAT 95–100
[2020-04-21] MEDS: Piperacillin Sodium/Tazobactam 3.375 GM in 0.9 % Sodium Chloride 50 ML IV ×3 (05:30→18:51)
[2020-04-21] MEDS: Omeprazole 20 MG CAPSULE.DR PO ×2 (05:33→15:46)
[2020-04-21 07:03] LABS: MANUAL DIFF FLAG NO
[2020-04-21 07:11] LABS: INTERNATIONAL NORM RATIO 2.3 (0.9-1.1); Prothrombin Time 27.5 SEC (10.8-13.0)
[2020-04-21 07:14] LABS: Basophils Percent Auto 0.3 % (0-2); Eosinophils Absolute Auto 0.2 X10*3/uL (0.0-0.4); Eosinophils Percent Auto 1.7 % (0-4); Imm Gran Abs Auto 0.08 X10*3/uL (0.00-0.03); Imm Gran Pct Auto 0.8 % (0.0-0.4); Lymphocytes Percent Auto 10.3 % (20-40); Mean Corpuscular HGB Conc 33.5 g/dl (31.0-35.0); Mean Corpuscular Volume 101.5 fL (80-98); Monocytes Absolute Auto 0.9 X10*3/uL (0.1-1.2); Monocytes Percent Auto 9.3 % (2-11); Neutrophils Absolute Auto 7.8 X10*3/uL (2.0-8.3); Neutrophils Percent Auto 77.6 % (45-73); Red Cell Distribution Width 21.4 % (11.0-16.0); White Blood Count 10.1 X10*3/uL (4.8-10.8)
[2020-04-21 07:35] LABS: Platelet Count 58 X10*3/uL (160-400)
[2020-04-21 07:42] LABS: Hemoglobin 6.8 g/dl (12.0-16.0)
[2020-04-21 07:43] LABS: Hematocrit 20.3 % (37-47)
[2020-04-21 07:58] LABS: Alanine Aminotransferase 24 U/L (0-31); Albumin Level 2.2 g/dL (3.5-5.0); Alkaline Phosphatase 149 U/L (39-117); Anion Gap 16 (12-20); Aspartate Amino Transferase 54 U/L (5-31); Bilirubin Total 14.8 mg/dL (0.0-1.0); Blood Urea Nitrogen 8 mg/dL (9-16); Calcium 7.6 mg/dL (8.4-10.2); Carbon Dioxide 28 mmol/L (22-29); Chloride 96 mmol/L (96-108); Creatinine Clr Calc Pharmacy 108.5; Estimated Glomerular Filt Rate > 60; Glucose Random 116 mg/dL (60-115); Magnesium 1.6 mg/dL (1.6-2.6); Sodium 137 mmol/L (135-145)
[2020-04-21] MEDS: 0.9 % Sodium Chloride Flush 3 ML SYRINGE IVFLUSH ×2 (08:07→15:46)
[2020-04-21] MEDS: Spironolactone 25 MG TABLET 50 MG PO (08:07)
[2020-04-21] MEDS: Lactulose 20 GM/30 ML SOLUTION 30 GM PO ×3 (08:07→20:22)
[2020-04-21] MEDS: Potassium Chloride ER 20 MEQ TAB.ER.PRT 40 MEQ PO (08:07)
[2020-04-21] MEDS: rifAXIMin 550 MG TABLET PO ×2 (08:08→20:22)
[2020-04-21] MEDS: Magnesium Oxide 400 MG TABLET PO ×2 (08:08→20:22)
[2020-04-21] MEDS: Folic Acid 1 MG TABLET PO (08:08)
[2020-04-21] MEDS: Cholecalciferol (Vitamin D3) 25 MCG TABLET 50 MCG PO (08:08)
[2020-04-21] MEDS: Torsemide 20 MG TABLET 40 MG PO (08:08)
[2020-04-21] MEDS: Pyridoxine HCl (Vitamin B6) 50 MG TABLET PO (08:09)
[2020-04-21] MEDS: Loratadine 10 MG TABLET PO (08:09)
[2020-04-21] MEDS: risperiDONE 1 MG TABLET PO ×2 (08:09→20:22)
[2020-04-21] MEDS: Baclofen 10 MG TABLET PO ×2 (08:09→20:22)
[2020-04-21] MEDS: Gabapentin 300 MG CAPSULE PO ×3 (08:09→20:22)
[2020-04-21] MEDS: Thiamine HCL 100 MG TABLET PO (08:09)
[2020-04-21 08:14] LABS: SLIDE REVIEW VERIFIED
[2020-04-21] MEDS: Potassium Chloride Packet 20 MEQ PACKET 40 MEQ PO ×2 (08:24→17:05)
[2020-04-21 08:47] LABS: Bilirubin Direct 7.9 mg/dL (0.0-0.5); Iron 112 mcg/dL (30-160); Lactate Dehydrogenase 332 U/L (122-220); Total Iron Binding Capacity < 129 mcg/dL (228-428); Unsaturated Iron Binding < 17 ug/dL
[2020-04-21 09:00] LABS: Immature Retic Fraction 27.6 % (3.0-15.9); Reticulocytes Absolute 0.129 X10*6/uL (0.026-0.095)
[2020-04-21 09:01] LABS: Reticulocyte Percent 6.5 % (0.5-1.8)
[2020-04-21 09:03] LABS: Ferritin 259 ng/mL (10-250)
[2020-04-21 10:39] LABS: Hemoglobin A1c % < 4.0 %
[2020-04-21 10:46] LABS: Folate 19.5 ng/mL (> or = 4.0); Vitamin B12 > 2000 pg/mL (200-900)
--- NOTE | 2020-04-21 11:19 | MHC.CLN ---
RE: CONSULT 100% PO DIET RX: 1200DM 2GM NA WITH 1500CC FR-APPROPRIATE DIET WILL PROMOTE SLOW WT LOSS PT WITH WT GAIN SINCE LAST ADMISSION AND MAY BE ATTRIBUTED TO ASCITES MONITOR WT CLOSELY ENSURE CLEAR TID ADDED PER MD (720CC/DAY FOR FLUID RESTRICTION) FOLLOWING
[2020-04-21] MEDS: oxyCODONE HCl Immed Release 5 MG TABLET PO ×2 (13:11→17:09)
[2020-04-21] MEDS: Phytonadione (Vit K1) 10 MG in 0.9 % Sodium Chloride 50 ML 51 MG IV (15:54)
[2020-04-21] MEDS: Magnesium Sulfate/H2O 2 GM/50 ML PIGGYBACK IV (17:04)
--- NOTE | 2020-04-21 17:57 | P.PNIM_ITS ---
Subjective Subjective Date of Service: 04/21/20 Interval History: Advanced liver disease, anemia. Hepatic encephalopathy Review of Systems Patient denies any chest pain or shortness of breath or abdominal pain or fever or chills or any nausea or vomiting She still has some swelling of the lower extremities Physical Exam Vital Signs: Vital Signs: Last Vital Signs Temp 96.8 F 04/21/20 15:10 Pulse 100 04/21/20 15:10 Resp 21 H 04/21/20 15:10 BP 150/60 H 04/21/20 15:10 Pulse Ox 100 04/21/20 15:10 Body Mass Index 40.0 Physical exam: Constitutional: Not in acute distress. HEENT: Eyes: Icteric, no discharge Throat: No erythema or pain. Cvs: rrr, [id number] , no murmur res: clear to auscultation ,no rhonchii or wheezing abd: no rebound or guarding ,nt, bs present. ext pulses present , no cyanosis neuro: axo3 , nonfocal. Objective Data Current Medications Generic Name Dose Route Start Last Admin Trade Name Rodq PRN Reason Stop Dose Admin Albuterol Sulfate 2 puff 04/18/20 18:15 04/19/20 19:57 Albuterol Sulfate 90 Mcg 8 Gm Inhaler INHALE 2 puff Q4H PRN Administration Shortness Of Breath Baclofen 10 mg 04/18/20 21:00 04/21/20 08:09 Baclofen 10 Mg Tablet PO 10 mg BID LILLI Administration Calcium Carbonate 300 mg 04/18/20 18:15 Calcium Carbonate 750 Mg Tab.Chew PO TID PRN Heartburn Docusate Sodium 100 mg 04/18/20 18:15 Docusate Sodium 100 Mg Capsule PO BID PRN Constipation Fluticasone Propionate 2 puff 04/18/20 20:00 04/21/20 07:40 Fluticasone Propionate 250 Mcg Blst.W.Dev INHALE Not Given RBID LILLI Folic Acid 1 mg 04/19/20 09:00 04/21/20 08:08 Folic Acid 1 Mg Tablet PO 1 mg DAILY LILLI Administration Gabapentin 300 mg 04/18/20 21:00 04/21/20 15:46 Gabapentin 300 Mg Capsule PO 300 mg TID LILLI Administration Piperacillin Sod/Tazobactam 50 mls @ 100 mls/hr 04/18/20 18:15 04/21/20 15:19 Sod 3.375 gm/ Sodium Chloride IV Infused Q6H LILLI Infusion Lactulose 30 gm 04/18/20 21:00 04/21/20 15:46 Lactulose 20 Gm/30 Ml Solution PO 30 gm TID LILLI Administration Loratadine 10 mg 04/19/20 09:00 04/21/20 08:09 Loratadine 10 Mg Tablet PO 10 mg DAILY LILLI Administration Magnesium Oxide 400 mg 04/18/20 21:00 04/21/20 08:08 Magnesium Oxide 400 Mg Tablet PO 400 mg BID LILLI Administration Non-Formulary Medication 2 puff 04/19/20 09:00 Tiotropium-Olodaterol [Stiolto Respimat] INHALE DAILY [facility] Non-Formulary Medication 1 patch 04/19/20 14:15 Buprenorphine TRANSDERMA QWEEK [facility] Omeprazole 20 mg 04/19/20 06:30 04/21/20 15:46 Omeprazole 20 Mg Capsule.Dr PO 20 mg BID@7730,1980 [facility] Administration Ondansetron HCl 4 mg 04/18/20 18:15 Ondansetron Hcl 4 Mg/2 Ml Vial IVPUSH Q8H PRN Nausea and Vomiting Oxycodone HCl 5 mg 04/19/20 14:12 04/21/20 17:09 Oxycodone Hcl Immed Release 5 Mg Tablet PO 5 mg Q4H PRN Administration severe pain Pharmacy Consult 1 each 04/18/20 12:57 Consult Rx Perform Med Rec MISCELLANE ONCE PRN Consult order Potassium Chloride 40 meq 04/19/20 09:00 04/21/20 08:07 Potassium Chloride Er 20 Meq Tab.Er.Prt PO 40 meq DAILY LILLI Administration Pyridoxine HCl 50 mg 04/19/20 09:00 04/21/20 08:09 Pyridoxine Hcl (Vitamin B6) 50 Mg Tablet PO 50 mg DAILY [facility]I Administration Rifaximin 550 mg 04/18/20 21:00 04/21/20 08:08 Rifaximin 550 Mg Tablet PO 550 mg BID LILLI Administration Risperidone 1 mg 04/18/20 21:00 04/21/20 08:09 Risperidone 1 Mg Tablet PO 1 mg BID LILLI Administration Sodium Chloride 3 ml 04/19/20 00:00 04/21/20 15:46 0.9 % Sodium Chloride Flush 3 Ml Syringe IVFLUSH 3 ml QSHIFT LILLI Administration Spironolactone 50 mg 04/20/20 09:00 04/21/20 08:07 Spironolactone 25 Mg Tablet PO 50 mg DAILY LILLI Administration Protocol Thiamine HCl 100 mg 04/19/20 09:00 04/21/20 08:09 Thiamine Hcl 100 Mg Tablet PO 100 mg DAILY L[facility]I Administration Torsemide 40 mg 04/19/20 09:00 04/21/20 08:08 Torsemide 20 Mg Tablet PO 40 mg DAILY LILLI Administration Protocol Vitamin D 50 mcg 04/19/20 09:00 04/21/20 08:08 Cholecalciferol (Vitamin D3) 25 Mcg Tablet PO 50 mcg DAILY LILLI Administration Labs CBC & Chem 7: 04/21/20 06:02 04/21/20 06:02 Microbiology Microbiology Results: Microbiology 04/18/20 12:39 Blood - Venous Blood Culture - Preliminary No growth after 48 hours. 04/18/20 11:12 Blood - Venous Blood Culture - Preliminary No growth after 48 hours. Assessment and Plan (1) Hepatic encephalopathy: Status: Acute (2) Chronic liver failure: Status: Acute (3) Abnormal CT scan, gastrointestinal tract: Status: Acute Assessment and Plan: hospital d#3 54yo F with decompensated EtOH cirrhosis s/p TIPS, DM2, COPD, chronic back pain, bipolar disorder, opioid abuse admitted for hepatic encephalopathy, question of intraperitoneal air 1. hepatic encephalopathy - continue lactulose + rifaximin producing bm's seems more alert 2.intraperitoneal air- benign per Surg, possibly ble from serosa/omentum. no inflammatory changes in GI tract. not a surgical candidate due to advanced cirrhosis She denies any abdominal pain, soft above abdomen. Will continue to monitor. 3. hyponatremia: improved - chronic, due to cirrhosis; improving. continue fluid restriction 1500 mL/d. recheck BMP in am 4.: Hypokalemia, borderline magnesium: Patient also has PACs on the tele. Will add p.o. potassium, also will give dose of magnesium. 5.worsening anemia- likely due to cirrhosis-? portal gastropathy. added 1 prbc on empiric PPI. will check tips patency-add liver us 6.thrombocytopenia - due to cirrhosis. avoid heparin. stable. 7.edema- continue torsemide, increased spironolactone,add albumin- monitor BMP 8.cirrhosis, decompensated. MELD 29 - avoid EtOH - sees Dr Dias at [facility] [place] - outpt transplant evaluation - maintain sobriety Bilirubin is improving trending down 9. chronic pain disorder- gabapentin 10. mood disorder- continue risperidone 11.opioid use disorder - continue Butrans patch or hospital formulary equivalent 12. DM2 - d/c MTF, last A1c only 4.1 VTE ppx - SCDs, avoid heparin
[2020-04-21] MEDS: Albumin Human 25 % 50 ML 100 ML IV (18:33)
[2020-04-21] MEDS: Calcium Carbonate 750 MG TAB.CHEW 300 MG PO (18:37)
[2020-04-22] VITALS (8 sets, daily range): BP systolic 95–149; BP diastolic 50–61; PULSE 105–118; RESP 18–22; TEMP 36.4–37.1; O2SAT 93–98
[2020-04-22] MEDS: Piperacillin Sodium/Tazobactam 3.375 GM in 0.9 % Sodium Chloride 50 ML IV ×4 (00:33→17:59)
[2020-04-22] MEDS: 0.9 % Sodium Chloride Flush 3 ML SYRINGE IVFLUSH ×4 (00:38→20:19)
[2020-04-22] MEDS: Omeprazole 20 MG CAPSULE.DR PO ×2 (06:07→16:06)
[2020-04-22 06:10] LABS: Hemoglobin 8.5 g/dl (12.0-16.0)
[2020-04-22 06:39] LABS: Anion Gap 13 (12-20); Blood Urea Nitrogen 5 mg/dL (9-16); Calcium 7.8 mg/dL (8.4-10.2); Carbon Dioxide 31 mmol/L (22-29); Chloride 95 mmol/L (96-108); Creatinine Clr Calc Pharmacy 90.7; Estimated Glomerular Filt Rate > 60; Glucose Random 102 mg/dL (60-115); Sodium 136 mmol/L (135-145)
--- NOTE | 2020-04-22 07:29 | PM.GIPN ---
Subjective Subjective Date of Service: 04/21/20 Interval History: Patient clearly more alert and oriented today. She says she is followed by Dr. Dias --MARTHA Jones. She has an upcoming appointment with him. She admits that her appetite @ home is not that good. Physical Exam Vital Signs: Vital Signs: Last Vital Signs Temp 98.3 F 04/22/20 03:32 Pulse 118 H 04/22/20 03:32 Resp 22 H 04/22/20 03:32 BP 106/50 L 04/22/20 03:32 Pulse Ox 95 04/22/20 03:32 Body Mass Index 40.0 Patient was examined on the 4th. Const: Other: Jaundiced General: cooperative and ill appearing Limitations: altered mental status (improved from admission) Resp: Effort & Inspection: normal respiratory effort, able to speak in complete sentences and no cough Cardio: Rate: regular rate Rhythm: regular rhythm GI: Inspection: Yes distended Palpation (GI): Soft to palpation and no masses Extrem: General: Yes edema (3+) Objective Data Labs CBC & Chem 7: 04/22/20 05:34 04/22/20 05:34 Labs: Laboratory Results - last 24 hr 04/19/20 04/20/20 04/21/20 19:30 05:49 06:02 WBC 10.1 RBC 2.00 L Hgb 6.8 L* Hct 20.3 L* MCV 101.5 H MCH 34.0 H MCHC 33.5 RDW 21.4 H Plt Count 58 L MPV 11.0 Immature Gran % (Auto) 0.8 H Neut % (Auto) 77.6 H Lymph % (Auto) 10.3 L [place] % (Auto) 9.3 Eos % (Auto) 1.7 Baso % (Auto) 0.3 Lymph # (Auto) 1.0 L [place] # (Auto) 0.9 Eos # (Auto) 0.2 Baso # (Auto) 0.0 Abs Immat Gran (auto) 0.08 H Absolute Neuts (auto) 7.8 Absolute Nucleated RBC 0.000 Nucleated RBC % (auto) 0.0 Smear Tech's Comments VERIFIED Absolute Retic 0.129 H Percent Retic 6.5 H Immature Retic Fraction 27.6 H Retic Hgb Equivalent 38.0 H Sodium Potassium Chloride Carbon Dioxide Anion Gap BUN Creatinine Estim Creat Clear Calc Estimated GFR Random Glucose Estimat Average Glucose Hemoglobin A1c % Calcium Magnesium Iron TIBC % Saturation Unsat Iron Binding Ferritin Total Bilirubin Direct Bilirubin AST ALT Alkaline Phosphatase Lactate Dehydrogenase Total Protein Albumin Vitamin B12 Folate Blood Type A Negative Antibody Screen NEGATIVE Crossmatch See Detail 04/21/20 04/21/20 04/21/20 06:02 06:02 06:02 WBC RBC Hgb Hct MCV MCH MCHC RDW Plt Count MPV Immature Gran % (Auto) Neut % (Auto) Lymph % (Auto) [place] % (Auto) Eos % (Auto) Baso % (Auto) Lymph # (Auto) [place] # (Auto) Eos # (Auto) Baso # (Auto) Abs Immat Gran (auto) Absolute Neuts (auto) Absolute Nucleated RBC Nucleated RBC % (auto) Smear Tech's Comments Absolute Retic Percent Retic Immature Retic Fraction Retic Hgb Equivalent Sodium 137 Potassium 3.0 L Chloride 96 Carbon Dioxide 28 Anion Gap 16 BUN 8 L Creatinine 0.61 Estim Creat Clear Calc 108.5 Estimated GFR > 60 Random Glucose 116 H Estimat Average Glucose TNP Hemoglobin A1c % < 4.0 Calcium 7.6 L Magnesium 1.6 Iron 112 TIBC < 129 L % Saturation TNP Unsat Iron Binding < 17 Ferritin 259 H Total Bilirubin 14.8 H Direct Bilirubin 7.9 H AST 54 H ALT 24 Alkaline Phosphatase 149 H Lactate Dehydrogenase 332 H Total Protein 5.0 L Albumin 2.2 L Vitamin B12 > 2000 H Folate 19.5 Blood Type Antibody Screen Crossmatch 04/22/20 04/22/20 05:34 05:34 WBC RBC Hgb 8.5 L D Hct 25.0 L D MCV MCH MCHC RDW Plt Count MPV Immature Gran % (Auto) Neut % (Auto) Lymph % (Auto) [place] % (Auto) Eos % (Auto) Baso % (Auto) Lymph # (Auto) [place] # (Auto) Eos # (Auto) Baso # (Auto) Abs Immat Gran (auto) Absolute Neuts (auto) Absolute Nucleated RBC Nucleated RBC % (auto) Smear Tech's Comments Absolute Retic Percent Retic Immature Retic Fraction Retic Hgb Equivalent Sodium 136 Potassium 3.0 L Chloride 95 L Carbon Dioxide 31 H Anion Gap 13 BUN 5 L Creatinine 0.73 Estim Creat Clear Calc 90.7 Estimated GFR > 60 Random Glucose 102 Estimat Average Glucose Hemoglobin A1c % Calcium 7.8 L Magnesium Iron TIBC % Saturation Unsat Iron Binding Ferritin Total Bilirubin Direct Bilirubin AST ALT Alkaline Phosphatase Lactate Dehydrogenase Total Protein Albumin Vitamin B12 Folate Blood Type Antibody Screen Crossmatch Microbiology Microbiology Results: Microbiology 04/18/20 12:39 Blood - Venous Blood Culture - Preliminary No growth after 48 hours. 04/18/20 11:12 Blood - Venous Blood Culture - Preliminary No growth after 48 hours. Progress Note: A&P Assessment and plan (1) Anemia: Status: Acute Assessment and Plan: Anemia more profound. May be mixed picture due to some chronic GI blood loss and possible intravascular process--In setting of significant steatohepatitis could consider a 4 week course of Prednisolone similar to what we do for acute alcohol induced steatohepatitis. Transfuse to 8-9gm of HGB. Any invasive testing refer back to Dr. Dias. Try Parenteral Vit k 10mg x 3 days. Optimize protein calorie nutrtion. (2) Hepatic encephalopathy: Status: Acute Assessment and Plan: Seems to be improving. Continue Xifaxin and Lactulose. Patient is on a lot of meds that could be a problem: Baclofen, Gabapentin and hydrocodone for her back pain. This needs to be reevaluated by PCP and others. Management was reviewed in detail with hospitialist. Fall Risk Details Current Medications: Current Medications Generic Name Dose Route Start Last Admin Trade Name Freq PRN Reason Stop Dose Admin Albuterol Sulfate 2 puff 04/18/20 18:15 04/19/20 19:57 Albuterol Sulfate 90 Mcg 8 Gm Inhaler INHALE 2 puff Q4H PRN Administration Shortness Of Breath Baclofen 10 mg 04/18/20 21:00 04/21/20 20:22 Baclofen 10 Mg Tablet PO 10 mg BID LILLI Administration Calcium Carbonate 300 mg 04/18/20 18:15 04/21/20 18:37 Calcium Carbonate 750 Mg Tab.Chew PO 300 mg TID PRN Administration Heartburn Docusate Sodium 100 mg 04/18/20 18:15 Docusate Sodium 100 Mg Capsule PO BID PRN Constipation Fluticasone Propionate 2 puff 04/18/20 20:00 04/21/20 18:31 Fluticasone Propionate 250 Mcg Blst.W.Dev INHALE Not Given RBID LILLI Folic Acid 1 mg 04/19/20 09:00 04/21/20 08:08 Folic Acid 1 Mg Tablet PO 1 mg DAILY LILLI Administration Gabapentin 300 mg 04/18/20 21:00 04/21/20 20:22 Gabapentin 300 Mg Capsule PO 300 mg TID [facility] Administration Piperacillin Sod/Tazobactam 50 mls @ 100 mls/hr 04/18/20 18:15 04/22/20 07:00 Sod 3.375 gm/ Sodium Chloride IV Infused Q6H LILLI Infusion Lactulose 30 gm 04/18/20 21:00 04/21/20 20:22 Lactulose 20 Gm/30 Ml Solution PO 30 gm TID [facility] Administration Loratadine 10 mg 04/19/20 09:00 04/21/20 08:09 Loratadine 10 Mg Tablet PO 10 mg DAILY [facility] Administration Magnesium Oxide 400 mg 04/18/20 21:00 04/21/20 20:22 Magnesium Oxide 400 Mg Tablet PO 400 mg BID [facility] [place] Administration Non-Formulary Medication 2 puff 04/19/20 09:00 Tiotropium-Olodaterol [Stiolto Respimat] INHALE DAILY [facility] Non-Formulary Medication 1 patch 04/19/20 14:15 Buprenorphine TRANSDERMA QWEEK [facility] Omeprazole 20 mg 04/19/20 06:30 04/22/20 06:07 Omeprazole 20 Mg Capsule. PO 20 mg BID@0630,1630 [facility] Administration Ondansetron HCl 4 mg 04/18/20 18:15 Ondansetron Hcl 4 Mg/2 Ml Vial IVPUSH Q8H PRN Nausea and Vomiting Oxycodone HCl 5 mg 04/19/20 14:12 04/21/20 17:09 Oxycodone Hcl Immed Release 5 Mg Tablet PO 5 mg Q4H PRN Administration severe pain Pharmacy Consult 1 each 04/18/20 12:57 Consult Rx Perform Med Rec MISCELLANE ONCE PRN Consult order Potassium Chloride 40 meq 04/19/20 09:00 04/21/20 08:07 Potassium Chloride Er 20 Meq Tab.Er.Prt PO 40 meq DAILY [facility] [place] Administration Pyridoxine HCl 50 mg 04/19/20 09:00 04/21/20 08:09 Pyridoxine Hcl (Vitamin B6) 50 Mg Tablet PO 50 mg DAILY [facility]ILLI Administration Rifaximin 550 mg 04/18/20 21:00 04/21/20 20:22 Rifaximin 550 Mg Tablet PO 550 mg BID [facility] Administration Risperidone 1 mg 04/18/20 21:00 04/21/20 20:22 Risperidone 1 Mg Tablet PO 1 mg BID LILLI Administration Sodium Chloride 3 ml 04/19/20 00:00 04/22/20 06:08 0.9 % Sodium Chloride Flush 3 Ml Syringe IVFLUSH 3 ml QSHIFT LILLI Administration Spironolactone 50 mg 04/20/20 09:00 04/21/20 08:07 Spironolactone 25 Mg Tablet PO 50 mg DAILY LILLI Administration Protocol Thiamine HCl 100 mg 04/19/20 09:00 04/21/20 08:09 Thiamine Hcl 100 Mg Tablet PO 100 mg DAILY LILLI Administration Torsemide 40 mg 04/19/20 09:00 04/21/20 08:08 Torsemide 20 Mg Tablet PO 40 mg DAILY LILLI Administration Protocol Vitamin D 50 mcg 04/19/20 09:00 04/21/20 08:08 Cholecalciferol (Vitamin D3) 25 Mcg Tablet PO 50 mcg DAILY LILLI Administration Time Spent With Patient Time: Total time spent is greater than 50% in coordination of care (as documented) at patient's floor/unit and/or counseling patient: Time with patient: 15 - 24 minutes
[2020-04-22] MEDS: Fluticasone Propionate 250 MCG BLST.W.DEV 2 PUFF INHALE ×2 (08:13→19:56)
[2020-04-22] MEDS: Lactulose 20 GM/30 ML SOLUTION 30 GM PO ×3 (08:35→20:18)
[2020-04-22] MEDS: Torsemide 20 MG TABLET 40 MG PO (08:35)
[2020-04-22] MEDS: Cholecalciferol (Vitamin D3) 25 MCG TABLET 50 MCG PO (08:36)
[2020-04-22] MEDS: rifAXIMin 550 MG TABLET PO ×2 (08:36→20:18)
[2020-04-22] MEDS: Loratadine 10 MG TABLET PO (08:36)
[2020-04-22] MEDS: Pyridoxine HCl (Vitamin B6) 50 MG TABLET PO (08:36)
[2020-04-22] MEDS: Spironolactone 25 MG TABLET 50 MG PO (08:36)
[2020-04-22] MEDS: Thiamine HCL 100 MG TABLET PO (08:36)
[2020-04-22] MEDS: risperiDONE 1 MG TABLET PO ×2 (08:36→20:19)
[2020-04-22] MEDS: Gabapentin 300 MG CAPSULE PO (08:36)
[2020-04-22] MEDS: Baclofen 10 MG TABLET PO ×2 (08:36→20:19)
[2020-04-22] MEDS: Magnesium Oxide 400 MG TABLET PO ×2 (08:36→20:18)
[2020-04-22] MEDS: Potassium Chloride ER 20 MEQ TAB.ER.PRT 40 MEQ PO ×3 (08:36→20:18)
[2020-04-22] MEDS: Folic Acid 1 MG TABLET PO (08:38)
--- NOTE | 2020-04-22 12:08 | P.CNHO_ITS ---
Subjective - Subjective Chief complaint: Consult for anemia. Patient: new to practice Consult date: 04/22/20 Requesting Physician: Porter Primary Care Provider: Nuvia Bagley NP Medical Summary: DIAGNOSIS: ANEMIA. HPI - Consult Narrative Reason for consult: Anemia. Narrative: Madisyn Nicole is a 55 year old lady, presenting to the ER with complaints of increased confusion. She was in the ED on 04/17 for altered mental status, right upper quadrant pain with nausea. At that time her ammonia level was stable and she was alert and oriented. She was discharged home to continue her home regimen. She does have a history past alcohol abuse and heroin abuse. She is status post TIPS procedure. Her ammonia was noted to be 95 in the ER and she did seem to have more confusion therefore she presented back to the ER today. She reported some nausea and constipation. Her bili is 9.1 and usually elevated, sodium 127. Abdominal CT showed Cirrhotic-appearing liver. Small amount of ascites with small focus of air seen in the ascitic fluid in the right upper quadrant, question representing partial volume averaging with a loop of small bowel containing air. Possible small amount of free intraperitoneal air. She was seen and evaluated by General surgery who discussed the patient's case with her healthcare proxy, Malena Lea. Apparently patient has had a steady decline in her overall condition and patient is not to undergo any aggressive or major surgical procedures. After 1 dose of lactulose in the ER she did have some loose stools. She also received oxycodone, 1 L of IV fluid, albumin and oxycodone. She was noted to be anemic. Her serial hemoglobin: 2/: 7.5. 2/4: 6.8. 2/5: 8.5. 2/7: 9.0. Review of Systems - Constitutional Reports system reviewed and no additional complaints, except as documented, Reports daytime sleepiness, Reports fatigue, Reports headache(s), Reports lack of energy, Reports malaise, Reports weakness, Reports weight loss, Denies fever(s) - Eyes Reports system reviewed and no additional complaints, except as documented - ENT Reports system reviewed and no additional complaints, except as documented - Cardiovascular Reports system reviewed and no additional complaints, except as documented, Denies chest pain at rest - Respiratory Reports no additional respiratory complaints, Denies chest congestion - Gastrointestinal Reports system reviewed and no additional complaints, except as documented, Reports abdominal pain, Reports belching - Genitourinary Reports no additional female genitourinary complaints, Denies abnormal vaginal bleeding - Musculoskeletal Reports system reviewed and no additional complaints, except as documented, Reports back pain - Integumentary/Breasts Skin/Breast: Reports no additional skin complaints - Neurologic Reports confusion - Psychiatric Reports system reviewed and no additional complaints, except as documented - Endocrine Reports no additional endocrine complaints - Hematologic/Lymphatic Reports system reviewed and no additional complaints, except as documented - Allergic/Immunologic Reports system reviewed and no additional complaints, except as documented [facility] Medical History: Medical History (Last Updated 05/02/20 @ 19:16 by MARYLU Aguilar) Abnormal CT scan, gastrointestinal tract Anemia Anxiety Chronic back pain Chronic hyponatremia Cirrhosis Coagulopathy Congestive heart failure COPD (chronic obstructive pulmonary disease) Depression Diabetes 1.5, managed as type 2 Hyponatremia Liver disease Pneumonia PTSD (post-traumatic stress disorder) Thrombocytopenia Functional capacity: wheelchair bound Patient : No Family History: Family History (Last Reviewed 05/02/20 @ 19:16 by MARYLU Aguilar) Other HTN (hypertension) Surgical History: Surgical History (Last Reviewed 05/02/20 @ 19:16 by MARYLU Aguilar) History of cholecystectomy Previous back surgery S/P TIPS (transjugular intrahepatic portosystemic shunt) Social History: Social History (Last Reviewed 05/02/20 @ 19:16 by MARYLU Aguilar) Living Situation History: Household Members: Significant Other Housing: Apartment Alcohol History: Alcohol intake: former Tobacco History: Tobacco Type: Cigarette Packs Per Day: 0.5 Cigarettes Per Day: 2 Second Hand Smoke Exposure: Yes Substance Use History: Substance Use Type: Heroin Substance Use Type: Marijuana Advance Directives: Advance Directives Date on File: 05/14/20 Occupation Assessmet: service: No Current occupational status: unemployed Current occupational status: other Smoking status: Former smoker Home Medications and Allergies Current Medications: Current Medications Generic Name Dose Route Start Last Admin Trade Name Freq PRN Reason Stop Dose Admin Albuterol Sulfate 2 puff 04/18/20 18:15 04/19/20 19:57 Albuterol Sulfate 90 Mcg 8 Gm Inhaler INHALE 2 puff Q4H PRN Administration Shortness Of Breath Baclofen 10 mg 04/18/20 21:00 04/22/20 08:36 Baclofen 10 Mg Tablet PO 10 mg BID [facility] Administration Calcium Carbonate 300 mg 04/18/20 18:15 04/21/20 18:37 Calcium Carbonate 750 Mg Tab.Chew PO 300 mg TID PRN Administration Heartburn Docusate Sodium 100 mg 04/18/20 18:15 Docusate Sodium 100 Mg Capsule PO BID PRN Constipation Fluticasone Propionate 2 puff 04/18/20 20:00 04/22/20 08:13 Fluticasone Propionate 250 Mcg Blst.W.Dev INHALE 2 puff RBID [facility] Administration Folic Acid 1 mg 04/19/20 09:00 04/22/20 08:38 Folic Acid 1 Mg Tablet PO 1 mg DAILY [facility] Administration Gabapentin 300 mg 04/18/20 21:00 04/22/20 08:36 Gabapentin 300 Mg Capsule PO 300 mg TID [facility] Administration Piperacillin Sod/Tazobactam 50 mls @ 100 mls/hr 04/18/20 18:15 04/22/20 07:00 Sod 3.375 gm/ Sodium Chloride IV Infused Q6H [facility] Infusion Lactulose 30 gm 04/18/20 21:00 04/22/20 08:35 Lactulose 20 Gm/30 Ml Solution PO 30 gm TID [facility] Administration Loratadine 10 mg 04/19/20 09:00 04/22/20 08:36 Loratadine 10 Mg Tablet PO 10 mg DAILY [facility] Administration Magnesium Oxide 400 mg 04/18/20 21:00 04/22/20 08:36 Magnesium Oxide 400 Mg Tablet PO 400 mg BID [facility] Administration Non-Formulary Medication 2 puff 04/19/20 09:00 Tiotropium-Olodaterol [Stiolto Respimat] INHALE DAILY [facility] Non-Formulary Medication 1 patch 04/19/20 14:15 Buprenorphine TRANSDERMA QWEEK [facility] Omeprazole 20 mg 04/19/20 06:30 04/22/20 06:07 Omeprazole 20 Mg Capsule.Dr PO 20 mg BID@0630,1630 [facility] Administration Ondansetron HCl 4 mg 04/18/20 18:15 Ondansetron Hcl 4 Mg/2 Ml Vial IVPUSH Q8H PRN Nausea and Vomiting Oxycodone HCl 5 mg 04/19/20 14:12 04/21/20 17:09 Oxycodone Hcl Immed Release 5 Mg Tablet PO 5 mg Q4H PRN Administration severe pain Pharmacy Consult 1 each 04/18/20 12:57 Consult Rx Perform Med Rec MISCELLANE ONCE PRN Consult order Potassium Chloride 40 meq 04/22/20 09:00 Potassium Chloride Er 20 Meq Tab.Er.Prt PO BID [facility] Pyridoxine HCl 50 mg 04/19/20 09:00 04/22/20 08:36 Pyridoxine Hcl (Vitamin B6) 50 Mg Tablet PO 50 mg DAILY [facility] Administration Rifaximin 550 mg 04/18/20 21:00 04/22/20 08:36 Rifaximin 550 Mg Tablet PO 550 mg BID [facility] Administration Risperidone 1 mg 04/18/20 21:00 04/22/20 08:36 Risperidone 1 Mg Tablet PO 1 mg BID [facility] Administration Sodium Chloride 3 ml 04/19/20 00:00 04/22/20 06:08 0.9 % Sodium Chloride Flush 3 Ml Syringe IVFLUSH 3 ml QSHIFT [facility] Administration Spironolactone 50 mg 04/20/20 09:00 04/22/20 08:36 Spironolactone 25 Mg Tablet PO 50 mg DAILY [facility] Administration Protocol Thiamine HCl 100 mg 04/19/20 09:00 04/22/20 08:36 Thiamine Hcl 100 Mg Tablet PO 100 mg DAILY [facility] Administration Torsemide 40 mg 04/19/20 09:00 04/22/20 08:35 Torsemide 20 Mg Tablet PO 40 mg DAILY [facility] Administration Protocol Vitamin D 50 mcg 04/19/20 09:00 04/22/20 08:36 Cholecalciferol (Vitamin D3) 25 Mcg Tablet PO 50 mcg DAILY [facility] Administration Home Medications Medication Instructions Recorded Confirmed Type Xifaxan 550 mg PO BID 01/20/20 05/02/20 History folic acid 1 mg PO DAILY 01/20/20 05/02/20 History potassium chloride 40 meq PO DAILY 01/20/20 05/02/20 History Flovent HFA 2 puff INHALATION BID 02/09/20 05/02/20 History albuterol sulfate 2 puff INHALATION Q4H PRN 02/09/20 05/02/20 History calcium carbonate [Antacid Ext Str 1 tab PO TID PRN 02/09/20 05/02/20 History (calcium carb)] thiamine HCl (vitamin B1) 100 mg PO DAILY 02/09/20 05/02/20 History baclofen 10 mg PO BID 02/13/20 05/02/20 History cetirizine 10 mg PO DAILY 02/19/20 05/02/20 History pyridoxine (vitamin B6) 50 mg PO DAILY 02/19/20 05/02/20 History Stiolto Respimat 2 puff INHALATION DAILY 02/26/20 05/02/20 History buprenorphine 1 patch TRANSDERMAL QWEEK 04/18/20 04/18/20 History cholecalciferol (vitamin D3) 50 mcg PO DAILY 04/18/20 05/02/20 History [Vitamin D3] docusate sodium 100 mg PO BID PRN 04/18/20 05/02/20 History gabapentin 300 mg PO TID 04/18/20 05/02/20 History magnesium oxide 400 mg PO BID 04/18/20 05/02/20 History omeprazole 20 mg PO BID@0630,1630 04/18/20 05/02/20 History risperidone 1 mg PO BID 04/18/20 05/02/20 History spironolactone 25 mg PO DAILY 04/18/20 05/02/20 History torsemide 40 mg PO DAILY 04/18/20 04/18/20 History Allergies Allergy/AdvReac Type Severity Reaction Status Date / Time Iodinated Contrast Media Allergy Severe ANAPHYLAXIS Verified 04/18/20 00:44 [CONTRAST, IV] amoxicillin [AMOXICILLIN] Allergy Intermediate NAUSEA & Verified 04/18/20 00:44 VOMITING lamotrigine [From LAMICTAL] Allergy Intermediate RASH Verified 04/18/20 00:44 Sulfa (Sulfonamide Allergy Intermediate Rash Verified 04/18/20 00:44 Antibiotics) [SULFA (SULFONAMIDE ANTIBIOTICS)] sulfamethoxazole Allergy Intermediate Rash Verified 04/18/20 00:44 [From BACTRIM] trimethoprim [From BACTRIM] Allergy Intermediate Rash Verified 04/18/20 00:44 Physical Exam Vital signs: Vital Signs Temp 97.6 F 04/22/20 11:47 Pulse 108 H 04/22/20 11:47 Resp 20 04/22/20 11:47 BP 149/61 H 04/22/20 11:47 Pulse Ox 94 04/22/20 11:47 Intake & Output 04/21/20 04/22/20 04/22/20 18:59 06:59 18:59 Intake Total 1221 / 2381 1110 / 2381 650 / 650 Output Total 800 / 800 1070 / 1070 Balance 1221 / 1581 310 / 1581 -420 / -420 Urine Output (Average ml/kg/hr) 0.72 0.96 Intake: Intake, Oral Amount 360 / 1320 960 / 1320 600 / 600 Intake, Intraperitoneal Amount 360 / 360 Intake (Blood Product) Amount 350 / 350 Red Blood Cells (E0382) Unit 350 / 350 [id number] Intake, IV Amount 151 / 351 150 / 351 50 / 50 Albumin Human 25 % 50 ml @ 100 50 / 50 mls/hr IV ONCE ONE Rx#: [id number] Magnesium Sulfate/H2O 2 gm In 50 / 50 50 ml @ 50 mls/hr IV ONCE ONE Rx#:[id number] Phytonadione (Vit K1) 10 mg In 51 / 51 0.9 % Sodium Chloride 50 ml @ 51 mls/hr IV ONCE ONE Rx#: [id number] Piperacillin Sodium/Tazobactam 50 / 200 100 / 200 50 / 50 3.375 gm In 0.9 % Sodium Chloride 50 ml @ 100 mls/hr IV Q6H [facility] Rx#:[id number] Output: Output, Urine Amount 800 / 800 1070 / 1070 Other: Breakfast % Eaten 100% 25% Lunch % Eaten 75% Number of Incontinent Voids 1 Number of Unmeasured Voids 1 1 Number of Bowel Movements 6 1 Urine Bedside Commode Bedside Commode Bedside Commode Urine Color Yellow Yellow Last Bowel Movement 04/21/20 Stool Bedside Commode Incontinent Stool Amount Moderate Moderate Stool Color Yellow Yellow Stool Consistency Watery Loose Weight 92.986 kg - Constitutional Present: moderate distress - Routine HEENT Exam Head: Present: normal inspection ENT: Present: mucous membranes moist - Routine Neck Exam Present: supple - Routine Respiratory Exam Present: CTAB - Routine Cardiovascular Exam Cardiovascular: Present: RRR, S1, S2 - Routine Abdominal Exam Present: hypoactive bowel sounds, tenderness Hem/Onc Consult Result - Labs CBC & Chem 7: 04/24/20 05:47 04/25/20 09:24 Labs: Short CBC 04/22/20 Range/Units 05:34 Hgb 8.5 L D (12.0-16.0) g/dl Hct 25.0 L D (37-47) % BMP 04/22/20 05:34 Sodium 136 Potassium 3.0 L Chloride 95 L Carbon Dioxide 31 H BUN 5 L Creatinine 0.73 Calcium 7.8 L Assessment and Plan (1) Anemia Status: Acute Qualifiers: Anemia type: iron deficiency Iron deficiency anemia type: chronic blood loss Qualified Code(s): D50.0 - Iron deficiency anemia secondary to blood loss (chronic) This is a pleasant 55 year old lady presented with,acute on chronic hepatic encephalopathy. Anemia: Multifactorial: Anemia of Chronic disease, related to liver disease. Iron deficiency anemia: B12 folate deficiency: Hemolytic anemia: Can be associated with liver cirrhosis, due to membrane abnormalities. Myelo infiltrative disorder: Less likely. MDS versus lymphoma versus multiple myeloma. PLAN: Will proceed with further evaluation. Check iron studies. Check B12 folate levels. Check LDH and SIEP. Hepatic encephalopathy . Ammonia 95. Patient does seem to be alert and oriented. Will continue lactulose t.i.d.. rifaximin. Recheck ammonia in the morning. Follow neuro status. Gastroenterology consultation Free air. Less likey perforation. Small amount of peritoneal free air. Noted on CT scan. Will treat with Zosyn. General surgery to follow. Chronic liver cirrhosis . Small amount of ascites. Will treat empirically with Zosyn for SBP although patient does not have fever she did have a increased white blood cell count and abdominal pain. Continue PPI as well as spironolactone and torsemide. Coagulopathy. Chronic related to liver disease. No signs of bleeding, will check occult stool History substance abuse. Patient denies any heroin abuse however previous record states that she has used. Apparently she is on Suboxone patch transdermally weekly. DVT prophylaxis mechanical compression boots Thank you, CC:
--- NOTE | 2020-04-22 13:15 | MHC.CM.PN ---
MARTHA P.T. samuel recommends STR vs LTC. referral sent to [facility] for review. Anticipate DC 1-2 days Per MD rounds. transportation will need to be set-up. CM will follow.
[2020-04-22 13:37] LABS: Haptoglobin <8 mg/dL (43-212)
[2020-04-22 14:08] LABS: Lactate Dehydrogenase 303 U/L (122-220)
--- NOTE | 2020-04-22 15:10 | PM.PNGS ---
Subjective Subjective Date of Service: 04/22/20 Interval history: No new events Patient remains confused, encephalopathic as baseline Says she has back pain - denies abdominal pain Physical Exam Vital Signs: Vital Signs: Last Vital Signs Temp 97.6 F 04/22/20 11:47 Pulse 108 H 04/22/20 11:47 Resp 20 04/22/20 11:47 BP 149/61 H 04/22/20 11:47 Pulse Ox 94 04/22/20 11:47 Body Mass Index 40.0 Chemistry 04/20/20 04/21/20 04/22/20 05:48 06:02 05:34 Sodium 132 L 137 136 Potassium 2.9 L 3.0 L 3.0 L Carbon Dioxide 25 28 31 H BUN 9 8 L 5 L Creatinine 0.61 0.61 0.73 Calcium 7.6 L 7.6 L 7.8 L Hematology 04/20/20 04/21/20 04/22/20 05:49 06:02 05:34 WBC 12.0 H 10.1 Hgb 7.5 L 6.8 L* 8.5 L D Plt Count 67 L 58 L Const: Other: Confused, no distress, answers some questions Resp: Effort & Inspection: normal respiratory effort Cardio: Rhythm: regular rhythm GI: Palpation (GI): Soft to palpation, no guarding and not rigid Progress Note: A&P Assessment and plan (1) Abnormal CT scan, gastrointestinal tract: Status: Acute Assessment and Plan: Remains confused as baseline consistent with encephalopathy from cirrhosis Abdomen remained soft No fever WBC normal Overall clinical picture does not suggest perforated viscus No surgical indication at this time Discussed with healthcare proxy - she states that she does not want any major surgery for the patient in the future Fall Risk Details Current Medications: Current Medications Generic Name Dose Route Start Last Admin Trade Name Freq PRN Reason Stop Dose Admin Albuterol Sulfate 2 puff 04/18/20 18:15 04/19/20 19:57 Albuterol Sulfate 90 Mcg 8 Gm Inhaler INHALE 2 puff Q4H PRN Administration Shortness Of Breath Baclofen 10 mg 04/18/20 21:00 04/22/20 08:36 Baclofen 10 Mg Tablet PO 10 mg BID [facility] Administration Calcium Carbonate 300 mg 04/18/20 18:15 04/21/20 18:37 Calcium Carbonate 750 Mg Tab.Chew PO 300 mg TID PRN Administration Heartburn Docusate Sodium 100 mg 04/18/20 18:15 Docusate Sodium 100 Mg Capsule PO BID PRN Constipation Fluticasone Propionate 2 puff 04/18/20 20:00 04/22/20 08:13 Fluticasone Propionate 250 Mcg Blst.W.Dev INHALE 2 puff RBID [facility] Administration Folic Acid 1 mg 04/19/20 09:00 04/22/20 08:38 Folic Acid 1 Mg Tablet PO 1 mg DAILY [facility] Administration Gabapentin 300 mg 04/18/20 21:00 04/22/20 08:36 Gabapentin 300 Mg Capsule PO 300 mg TID [facility] Administration Piperacillin Sod/Tazobactam 50 mls @ 100 mls/hr 04/18/20 18:15 04/22/20 13:55 Sod 3.375 gm/ Sodium Chloride IV Infused Q6H [facility] Infusion Lactulose 30 gm 04/22/20 17:00 Lactulose 20 Gm/30 Ml Solution PO QID [facility] Loratadine 10 mg 04/19/20 09:00 04/22/20 08:36 Loratadine 10 Mg Tablet PO 10 mg DAILY [facility] Administration Magnesium Oxide 400 mg 04/18/20 21:00 04/22/20 08:36 Magnesium Oxide 400 Mg Tablet PO 400 mg BID [facility] Administration Non-Formulary Medication 2 puff 04/19/20 09:00 Tiotropium-Olodaterol [Stiolto Respimat] INHALE DAILY [facility] Non-Formulary Medication 1 patch 04/19/20 14:15 Buprenorphine TRANSDERMA QWEEK [facility] Omeprazole 20 mg 04/19/20 06:30 04/22/20 06:07 Omeprazole 20 Mg Capsule.Dr PO 20 mg BID@0630,1630 [facility] Administration Ondansetron HCl 4 mg 04/18/20 18:15 Ondansetron Hcl 4 Mg/2 Ml Vial IVPUSH Q8H PRN Nausea and Vomiting Oxycodone HCl 5 mg 04/19/20 14:12 04/21/20 17:09 Oxycodone Hcl Immed Release 5 Mg Tablet PO 5 mg Q4H PRN Administration severe pain Pharmacy Consult 1 each 04/18/20 12:57 Consult Rx Perform Med Rec MISCELLANE ONCE PRN Consult order Potassium Chloride 40 meq 04/22/20 09:00 04/22/20 13:14 Potassium Chloride Er 20 Meq Tab.Er.Prt PO 40 meq BID [facility] Administration Pyridoxine HCl 50 mg 04/19/20 09:00 04/22/20 08:36 Pyridoxine Hcl (Vitamin B6) 50 Mg Tablet PO 50 mg DAILY [facility] Administration Rifaximin 550 mg 04/18/20 21:00 04/22/20 08:36 Rifaximin 550 Mg Tablet PO 550 mg BID [facility] Administration Risperidone 1 mg 04/18/20 21:00 04/22/20 08:36 Risperidone 1 Mg Tablet PO 1 mg BID [facility] Administration Sodium Chloride 3 ml 04/19/20 00:00 04/22/20 06:08 0.9 % Sodium Chloride Flush 3 Ml Syringe IVFLUSH 3 ml QSHIFT [facility] Administration Spironolactone 50 mg 04/20/20 09:00 04/22/20 08:36 Spironolactone 25 Mg Tablet PO 50 mg DAILY [facility] Administration Protocol Thiamine HCl 100 mg 04/19/20 09:00 04/22/20 08:36 Thiamine Hcl 100 Mg Tablet PO 100 mg DAILY [facility] Administration Torsemide 40 mg 04/19/20 09:00 04/22/20 08:35 Torsemide 20 Mg Tablet PO 40 mg DAILY [facility] Administration Protocol Vitamin D 50 mcg 04/19/20 09:00 04/22/20 08:36 Cholecalciferol (Vitamin D3) 25 Mcg Tablet PO 50 mcg DAILY [facility] Administration Time Spent With Patient Time: Total time spent is greater than 50% in coordination of care (as documented) at patient's floor/unit and/or counseling patient: Time with patient: 15 - 24 minutes
--- NOTE | 2020-04-22 17:40 | HO.PM.IMPN ---
Subjective Subjective Date of Service: 04/22/20 Interval History: Advanced liver disease, anemia. Hepatic encephalopathy Review of Systems Patient seems somewhat sleepy, denies any abdominal pain or shortness of breath or chest pain. No nausea or vomiting. Physical Exam Vital Signs: Vital Signs: Last Vital Signs Temp 98.4 F 04/22/20 15:30 Pulse 105 H 04/22/20 15:30 Resp 20 04/22/20 15:30 BP 95/60 04/22/20 15:30 Pulse Ox 97 04/22/20 15:30 Body Mass Index 40.0 Constitutional: Not in acute distress. HEENT: Eyes: Icteric, no discharge Throat: No erythema or pain. Cvs: [id number], [id number] , no murmur res: clear to auscultation ,no rhonchii or wheezing abd: no rebound or guarding ,nt, bs present. ext pulses present , no cyanosis neuro: axo3 , nonfocal. Objective Data Current Medications Generic Name Dose Route Start Last Admin Trade Name Freq PRN Reason Stop Dose Admin Albuterol Sulfate 2 puff 04/18/20 18:15 04/19/20 19:57 Albuterol Sulfate 90 Mcg 8 Gm Inhaler INHALE 2 puff Q4H PRN Administration Shortness Of Breath Baclofen 10 mg 04/18/20 21:00 04/22/20 08:36 Baclofen 10 Mg Tablet PO 10 mg BID [facility] Administration Calcium Carbonate 300 mg 04/18/20 18:15 04/21/20 18:37 Calcium Carbonate 750 Mg Tab.Chew PO 300 mg TID PRN Administration Heartburn Docusate Sodium 100 mg 04/18/20 18:15 Docusate Sodium 100 Mg Capsule PO BID PRN Constipation Fluticasone Propionate 2 puff 04/18/20 20:00 04/22/20 08:13 Fluticasone Propionate 250 Mcg Blst.W.Dev INHALE 2 puff RBID [facility] Administration Folic Acid 1 mg 04/19/20 09:00 04/22/20 08:38 Folic Acid 1 Mg Tablet PO 1 mg DAILY [facility] Administration Gabapentin 300 mg 04/18/20 21:00 04/22/20 08:36 Gabapentin 300 Mg Capsule PO 300 mg TID [facility] Administration Piperacillin Sod/Tazobactam 50 mls @ 100 mls/hr 04/18/20 18:15 04/22/20 13:55 Sod 3.375 gm/ Sodium Chloride IV Infused Q6H [facility] Infusion Lactulose 30 gm 04/22/20 17:00 04/22/20 16:06 Lactulose 20 Gm/30 Ml Solution PO 30 gm QID [facility] Administration Loratadine 10 mg 04/19/20 09:00 04/22/20 08:36 Loratadine 10 Mg Tablet PO 10 mg DAILY [facility] Administration Magnesium Oxide 400 mg 04/18/20 21:00 04/22/20 08:36 Magnesium Oxide 400 Mg Tablet PO 400 mg BID [facility] Administration Non-Formulary Medication 2 puff 04/19/20 09:00 Tiotropium-Olodaterol [Stiolto Respimat] INHALE DAILY [facility] Non-Formulary Medication 1 patch 04/19/20 14:15 Buprenorphine TRANSDERMA QWEEK [facility] Omeprazole 20 mg 04/19/20 06:30 04/22/20 16:06 Omeprazole 20 Mg Capsule.Dr PO 20 mg BID@0630,5840 [facility] Administration Ondansetron HCl 4 mg 04/18/20 18:15 Ondansetron Hcl 4 Mg/2 Ml Vial IVPUSH Q8H PRN Nausea and Vomiting Oxycodone HCl 5 mg 04/19/20 14:12 04/21/20 17:09 Oxycodone Hcl Immed Release 5 Mg Tablet PO 5 mg Q4H PRN Administration severe pain Pharmacy Consult 1 each 04/18/20 12:57 Consult Rx Perform Med Rec MISCELLANE ONCE PRN Consult order Potassium Chloride 40 meq 04/22/20 09:00 04/22/20 13:14 Potassium Chloride Er 20 Meq Tab.Er.Prt PO 40 meq BID [facility] Administration Pyridoxine HCl 50 mg 04/19/20 09:00 04/22/20 08:36 Pyridoxine Hcl (Vitamin B6) 50 Mg Tablet PO 50 mg DAILY [facility] Administration Rifaximin 550 mg 04/18/20 21:00 04/22/20 08:36 Rifaximin 550 Mg Tablet PO 550 mg BID [facility] Administration Risperidone 1 mg 04/18/20 21:00 04/22/20 08:36 Risperidone 1 Mg Tablet PO 1 mg BID [facility] Administration Sodium Chloride 3 ml 04/19/20 00:00 04/22/20 16:06 0.9 % Sodium Chloride Flush 3 Ml Syringe IVFLUSH 3 ml QSHIFT [facility] Administration Spironolactone 50 mg 04/20/20 09:00 04/22/20 08:36 Spironolactone 25 Mg Tablet PO 50 mg DAILY [facility] Administration Protocol Thiamine HCl 100 mg 04/19/20 09:00 04/22/20 08:36 Thiamine Hcl 100 Mg Tablet PO 100 mg DAILY [facility] Administration Torsemide 40 mg 04/19/20 09:00 04/22/20 08:35 Torsemide 20 Mg Tablet PO 40 mg DAILY [facility] Administration Protocol Vitamin D 50 mcg 04/19/20 09:00 04/22/20 08:36 Cholecalciferol (Vitamin D3) 25 Mcg Tablet PO 50 mcg DAILY [facility] Administration Labs CBC & Chem 7: 04/23/20 05:54 04/23/20 05:54 Microbiology Microbiology Results: Microbiology 04/18/20 12:39 Blood - Venous Blood Culture - Preliminary No growth after 48 hours. 04/18/20 11:12 Blood - Venous Blood Culture - Preliminary No growth after 48 hours. Assessment and Plan (1) Hepatic encephalopathy: Status: Acute (2) Chronic liver failure: Status: Acute (3) Abnormal CT scan, gastrointestinal tract: Status: Acute Assessment and Plan: hospital d#3 54yo F with decompensated EtOH cirrhosis s/p TIPS, DM2, COPD, chronic back pain, bipolar disorder, opioid abuse admitted for hepatic encephalopathy, question of intraperitoneal air 1. hepatic encephalopathy - continue lactulose + rifaximin as per staff -today did not had bowel movement yet, adjust electrolytes to q.i.d. seems somewhat sleepy during the fiscal specialist, but seems more awake alert during the afternoon. 2.intraperitoneal air- benign per Surg, possibly ble from serosa/omentum. no inflammatory changes in GI tract. not a surgical candidate due to advanced cirrhosis She denies any abdominal pain, soft above abdomen. Will continue to monitor. 3. hyponatremia: improved - chronic, due to cirrhosis; improving. continue fluid restriction 1500 mL/d. recheck BMP in am 4.: Hypokalemia, borderline magnesium: Patient also has PACs on the tele. Adjusted p.o. potassium b.i.d. also continue magnesium p.o. also. 5.worsening anemia- likely due to cirrhosis-? portal gastropathy. added 1 prbc on empiric PPI. liver us-pending. 6.thrombocytopenia - due to cirrhosis. avoid heparin. stable. 7.edema- continue torsemide, increased spironolactone,add albumin- monitor BMP 8.cirrhosis, decompensated. MELD 29 - avoid EtOH - [place] [facility] [place] - maintain sobriety Bilirubin is improving trending down GI recommended IV vitamin K today is day 2 Add albumin. 9. chronic pain disorder- gabapentin 10. mood disorder- continue risperidone 11.opioid use disorder - continue Butrans patch or hospital formulary equivalent 12. DM2 - d/c MTF, last A1c only 4.1 VTE ppx - SCDs, avoid heparin
[2020-04-22] MEDS: Phytonadione (Vit K1) 10 MG in 0.9 % Sodium Chloride 50 ML 51 MG IV (19:16)
[2020-04-22] MEDS: Albumin Human 25 % 50 ML 100 ML IV (20:19)
[2020-04-23] VITALS (9 sets, daily range): BP systolic 95–130; BP diastolic 51–67; PULSE 94–102; RESP 18–20; TEMP 36.3–36.6; O2SAT 94–98
[2020-04-23] MEDS: Piperacillin Sodium/Tazobactam 3.375 GM in 0.9 % Sodium Chloride 50 ML IV ×4 (00:12→17:45)
[2020-04-23] MEDS: Omeprazole 20 MG CAPSULE.DR PO ×2 (05:21→16:18)
[2020-04-23 06:50] LABS: Hematocrit 24.7 % (37-47); Hemoglobin 8.3 g/dl (12.0-16.0)
[2020-04-23 06:53] LABS: INTERNATIONAL NORM RATIO 2.6 (0.9-1.1)
[2020-04-23 07:21] LABS: Alanine Aminotransferase 23 U/L (0-31); Albumin Level 2.4 g/dL (3.5-5.0); Alkaline Phosphatase 138 U/L (39-117); Anion Gap 15 (12-20); Aspartate Amino Transferase 57 U/L (5-31); Bilirubin Direct 6.2 mg/dL (0.0-0.5); Bilirubin Total 12.4 mg/dL (0.0-1.0); Blood Urea Nitrogen 6 mg/dL (9-16); Carbon Dioxide 30 mmol/L (22-29); Chloride 96 mmol/L (96-108); Creatinine Clr Calc Pharmacy 101.8; Estimated Glomerular Filt Rate > 60; Glucose Random 110 mg/dL (60-115); Potassium 3.2 mmol/L (3.3-5.1); Sodium 138 mmol/L (135-145)
[2020-04-23] MEDS: Albuterol Sulfate 90 MCG 8 GM INHALER 2 PUFF INHALE (08:08)
[2020-04-23] MEDS: Fluticasone Propionate 250 MCG BLST.W.DEV 2 PUFF INHALE ×2 (08:08→19:19)
[2020-04-23 08:56] LABS: Hemoglobin A1c % < 4.0 %
[2020-04-23] MEDS: Torsemide 20 MG TABLET 40 MG PO (09:17)
[2020-04-23] MEDS: Spironolactone 25 MG TABLET 50 MG PO (09:18)
[2020-04-23] MEDS: Potassium Chloride Packet 20 MEQ PACKET PO (09:18)
[2020-04-23] MEDS: rifAXIMin 550 MG TABLET PO ×2 (09:18→20:55)
[2020-04-23] MEDS: Potassium Chloride ER 20 MEQ TAB.ER.PRT 40 MEQ PO ×2 (09:18→20:40)
[2020-04-23] MEDS: risperiDONE 1 MG TABLET PO ×2 (09:18→20:40)
[2020-04-23] MEDS: Cholecalciferol (Vitamin D3) 25 MCG TABLET 50 MCG PO (09:18)
[2020-04-23] MEDS: Thiamine HCL 100 MG TABLET PO (09:19)
[2020-04-23] MEDS: Pyridoxine HCl (Vitamin B6) 50 MG TABLET PO (09:19)
[2020-04-23] MEDS: 0.9 % Sodium Chloride Flush 3 ML SYRINGE IVFLUSH ×3 (09:19→20:40)
[2020-04-23] MEDS: Folic Acid 1 MG TABLET PO (09:19)
[2020-04-23] MEDS: Loratadine 10 MG TABLET PO (09:19)
[2020-04-23] MEDS: Lactulose 20 GM/30 ML SOLUTION 30 GM PO ×3 (09:19→16:18)
[2020-04-23] MEDS: Magnesium Oxide 400 MG TABLET PO ×2 (09:20→20:40)
[2020-04-23] MEDS: Baclofen 10 MG TABLET PO ×2 (09:20→20:40)
[2020-04-23] MEDS: Calcium Carbonate 750 MG TAB.CHEW 300 MG PO (09:38)
[2020-04-23 11:27] LABS: Glucose, Whole Blood 136 mg/dL (60-115)
--- NOTE | 2020-04-23 14:32 | P.PNIM_ITS ---
Subjective Subjective Date of Service: 04/24/20 Interval History: Hepatic encephalopathy, anemia Review of Systems Patient seems more awake today could able to answer more questions, denies any chest pain or shortness of breath or abdominal pain or fever or chills. Physical Exam Vital Signs: Vital Signs: Last Vital Signs Temp 97.4 F 04/23/20 11:17 Pulse 94 04/23/20 11:17 Resp 20 04/23/20 11:17 BP 118/60 04/23/20 11:17 Pulse Ox 97 04/23/20 11:17 Body Mass Index 40.0 Physical exam: Constitutional: Not in acute distress. HEENT: Eyes: Icteric, no discharge Throat: No erythema or pain. Cvs: [id number], [id number] , no murmur res: clear to auscultation ,no rhonchii or wheezing abd: no rebound or guarding ,nt, bs present. ext pulses present , no cyanosis neuro: axo3 , nonfocal. Objective Data Current Medications Generic Name Dose Route Start Last Admin Trade Name Rodq PRN Reason Stop Dose Admin Albuterol Sulfate 2 puff 04/18/20 18:15 04/23/20 08:08 Albuterol Sulfate 90 Mcg 8 Gm Inhaler INHALE 2 puff Q4H PRN Administration Shortness Of Breath Baclofen 10 mg 04/18/20 21:00 04/23/20 09:20 Baclofen 10 Mg Tablet PO 10 mg BID [facility] Administration Calcium Carbonate 300 mg 04/18/20 18:15 04/23/20 09:38 Calcium Carbonate 750 Mg Tab.Chew PO 300 mg TID PRN Administration Heartburn Docusate Sodium 100 mg 04/18/20 18:15 Docusate Sodium 100 Mg Capsule PO BID PRN Constipation Fluticasone Propionate 2 puff 04/18/20 20:00 04/23/20 08:08 Fluticasone Propionate 250 Mcg Blst.W.Dev INHALE 2 puff RBID [facility] Administration Folic Acid 1 mg 04/19/20 09:00 04/23/20 09:19 Folic Acid 1 Mg Tablet PO 1 mg DAILY [facility] Administration Gabapentin 300 mg 04/18/20 21:00 04/22/20 08:36 Gabapentin 300 Mg Capsule PO 300 mg TID [facility] Administration Piperacillin Sod/Tazobactam 50 mls @ 100 mls/hr 04/18/20 18:15 04/23/20 14:10 Sod 3.375 gm/ Sodium Chloride IV Infused Q6H [facility] Infusion Lactulose 30 gm 04/22/20 17:00 04/23/20 12:49 Lactulose 20 Gm/30 Ml Solution PO 30 gm QID [facility] Administration Loratadine 10 mg 04/19/20 09:00 04/23/20 09:19 Loratadine 10 Mg Tablet PO 10 mg DAILY [facility] Administration Magnesium Oxide 400 mg 04/18/20 21:00 04/23/20 09:20 Magnesium Oxide 400 Mg Tablet PO 400 mg BID [facility] Administration Non-Formulary Medication 2 puff 04/19/20 09:00 Tiotropium-Olodaterol [Stiolto Respimat] INHALE DAILY [facility] Non-Formulary Medication 1 patch 04/19/20 14:15 Buprenorphine TRANSDERMA QWEEK [facility] Omeprazole 20 mg 04/19/20 06:30 04/23/20 05:21 Omeprazole 20 Mg Capsule.Dr PO 20 mg BID@0630,1630 [facility] Administration Ondansetron HCl 4 mg 04/18/20 18:15 Ondansetron Hcl 4 Mg/2 Ml Vial IVPUSH Q8H PRN Nausea and Vomiting Oxycodone HCl 5 mg 04/19/20 14:12 04/21/20 17:09 Oxycodone Hcl Immed Release 5 Mg Tablet PO 5 mg Q4H PRN Administration severe pain Pharmacy Consult 1 each 04/18/20 12:57 Consult Rx Perform Med Rec MISCELLANE ONCE PRN Consult order Potassium Chloride 40 meq 04/22/20 09:00 04/23/20 09:18 Potassium Chloride Er 20 Meq Tab.Er.Prt PO 40 meq BID [facility] Administration Pyridoxine HCl 50 mg 04/19/20 09:00 04/23/20 09:19 Pyridoxine Hcl (Vitamin B6) 50 Mg Tablet PO 50 mg DAILY [facility] Administration Rifaximin 550 mg 04/18/20 21:00 04/23/20 09:18 Rifaximin 550 Mg Tablet PO 550 mg BID [facility] Administration Risperidone 1 mg 04/18/20 21:00 04/23/20 09:18 Risperidone 1 Mg Tablet PO 1 mg BID [facility] Administration Sodium Chloride 3 ml 04/19/20 00:00 04/23/20 09:19 0.9 % Sodium Chloride Flush 3 Ml Syringe IVFLUSH 3 ml QSHIFT [facility] Administration Spironolactone 50 mg 04/20/20 09:00 04/23/20 09:18 Spironolactone 25 Mg Tablet PO 50 mg DAILY [facility] Administration Protocol Thiamine HCl 100 mg 04/19/20 09:00 04/23/20 09:19 Thiamine Hcl 100 Mg Tablet PO 100 mg DAILY [facility] Administration Torsemide 40 mg 04/19/20 09:00 04/23/20 09:17 Torsemide 20 Mg Tablet PO 40 mg DAILY [facility] Administration Protocol Vitamin D 50 mcg 04/19/20 09:00 04/23/20 09:18 Cholecalciferol (Vitamin D3) 25 Mcg Tablet PO 50 mcg DAILY [facility] Administration Labs CBC & Chem 7: 04/24/20 05:47 04/24/20 05:47 Microbiology Microbiology Results: Microbiology 04/18/20 11:12 Blood - Venous Blood Culture - Final No growth after 5 days. 04/18/20 12:39 Blood - Venous Blood Culture - Preliminary No growth after 48 hours. Assessment and Plan (1) Hepatic encephalopathy: Status: Acute (2) Chronic liver failure: Status: Acute (3) Abnormal CT scan, gastrointestinal tract: Status: Acute Assessment and Plan: hospital d#3 54yo F with decompensated EtOH cirrhosis s/p TIPS, DM2, COPD, chronic back pain, bipolar disorder, opioid abuse admitted for hepatic encephalopathy, question of intraperitoneal air 1. hepatic encephalopathy - continue lactulose + rifaximin as per staff -today did not had bowel movement yet, adjust electrolytes to q. i.d. 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 2.intraperitoneal air- benign per Surg, possibly ble from serosa/omentum. no inflammatory changes in GI tract. not a surgical candidate due to advanced cirrhosis She denies any abdominal pain, soft above abdomen. Will continue to monitor. 3. hyponatremia: improved - chronic, due to cirrhosis; improving. continue fluid restriction 1500 mL/d. recheck BMP in am 4.: Hypokalemia, borderline magnesium: Patient also has PACs on the tele. Adjusted p.o. potassium b.i.d. also continue magnesium p.o. also. 5. anemia- likely due to cirrhosis-? portal gastropathy. H&H is stable around 8.3 range on empiric PPI. liver us-unsuccessful as per the radiology. ? Hemolysis also probably question related to liver disease Iron studies more of chronic disease Folate and B12 level is seems fine LDH is elevated but seems better than previous values. SIEP added by hematology 6.thrombocytopenia - due to cirrhosis. avoid heparin. stable. 7.edema- continue torsemide, increased spironolactone,add albumin- monitor BMP 8.cirrhosis, decompensated. MELD 29 - avoid EtOH - sees Dr Dias at [facility] [place] - outpt transplant evaluation - maintain sobriety Bilirubin is improving trending down GI recommended IV vitamin K today is day 2 Add albumin. 9. chronic pain disorder- gabapentin 10. mood disorder- continue risperidone 11.opioid use disorder - continue Butrans patch or hospital formulary equivalent 12. DM2 - d/c MTF, last A1c only 4.1 VTE ppx - SCDs, avoid heparin
[2020-04-24] VITALS (8 sets, daily range): BP systolic 110–127; BP diastolic 53–61; PULSE 80–92; RESP 16–20; TEMP 36.5–36.8; O2SAT 94–98
[2020-04-24] MEDS: Piperacillin Sodium/Tazobactam 3.375 GM in 0.9 % Sodium Chloride 50 ML IV ×4 (05:24→17:23)
[2020-04-24] MEDS: Omeprazole 20 MG CAPSULE.DR PO ×2 (05:24→17:23)
[2020-04-24 07:14] LABS: Hematocrit 27.2 % (37-47)
[2020-04-24 07:37] LABS: Anion Gap 16 (12-20); Blood Urea Nitrogen 6 mg/dL (9-16); Calcium 8.1 mg/dL (8.4-10.2); Carbon Dioxide 31 mmol/L (22-29); Chloride 98 mmol/L (96-108); Creatinine Clr Calc Pharmacy 93.2; Estimated Glomerular Filt Rate > 60; Glucose Random 91 mg/dL (60-115); Potassium 3.2 mmol/L (3.3-5.1); Sodium 142 mmol/L (135-145)
[2020-04-24] MEDS: Fluticasone Propionate 250 MCG BLST.W.DEV 2 PUFF INHALE ×2 (07:55→20:04)
[2020-04-24 08:27] LABS: Alanine Aminotransferase 22 U/L (0-31); Albumin Level 2.4 g/dL (3.5-5.0); Alkaline Phosphatase 149 U/L (39-117); Aspartate Amino Transferase 53 U/L (5-31); Bilirubin Direct 6.9 mg/dL (0.0-0.5); Bilirubin Total 13.3 mg/dL (0.0-1.0); Total Protein 5.1 g/dL (6.5-8.0)
[2020-04-24] MEDS: 0.9 % Sodium Chloride Flush 3 ML SYRINGE IVFLUSH ×3 (08:27→20:04)
[2020-04-24] MEDS: Spironolactone 25 MG TABLET 50 MG PO (08:28)
[2020-04-24] MEDS: rifAXIMin 550 MG TABLET PO ×2 (08:28→20:00)
[2020-04-24] MEDS: Loratadine 10 MG TABLET PO (08:28)
[2020-04-24] MEDS: Pyridoxine HCl (Vitamin B6) 50 MG TABLET PO (08:28)
[2020-04-24] MEDS: Potassium Chloride ER 20 MEQ TAB.ER.PRT 40 MEQ PO ×2 (08:28→20:00)
[2020-04-24] MEDS: Torsemide 20 MG TABLET 40 MG PO (08:28)
[2020-04-24] MEDS: Folic Acid 1 MG TABLET PO (08:28)
[2020-04-24] MEDS: Cholecalciferol (Vitamin D3) 25 MCG TABLET 50 MCG PO (08:28)
[2020-04-24] MEDS: risperiDONE 1 MG TABLET PO ×2 (08:28→20:00)
[2020-04-24] MEDS: Baclofen 10 MG TABLET PO ×2 (08:29→20:00)
[2020-04-24] MEDS: Magnesium Oxide 400 MG TABLET PO ×2 (08:29→20:00)
[2020-04-24] MEDS: Thiamine HCL 100 MG TABLET PO (08:29)
[2020-04-24] MEDS: Lactulose 20 GM/30 ML SOLUTION 30 GM PO ×4 (08:29→19:58)
[2020-04-24] MEDS: Potassium Chloride Packet 20 MEQ PACKET 40 MEQ PO (08:35)
[2020-04-24] MEDS: Phytonadione (Vit K1) 10 MG in 0.9 % Sodium Chloride 50 ML 51 MG IV (08:50)
--- NOTE | 2020-04-24 13:07 | HO.PM.IMPN ---
Subjective Subjective Date of Service: 04/24/20 Interval History: advanced liver dis . Hepatic encephalopathy Review of Systems Denies any chest pain or shortness of breath or abdominal pain or nausea or vomiting or fever chills. Physical Exam Vital Signs: Vital Signs: Last Vital Signs Temp 98.2 F 04/24/20 11:53 Pulse 88 04/24/20 11:53 Resp 18 04/24/20 11:53 BP 125/58 L 04/24/20 11:53 Pulse Ox 97 04/24/20 11:53 Body Mass Index 40.0 Physical exam: Cvs: [id number], [id number] , no murmur res: clear to auscultation ,no rhonchii or wheezing abd: no rebound or guarding ,nt, bs present. ext pulses present , no cyanosis neuro: axo3 , nonfocal. Objective Data Current Medications Generic Name Dose Route Start Last Admin Trade Name Freq PRN Reason Stop Dose Admin Albuterol Sulfate 2 puff 04/18/20 18:15 04/23/20 08:08 Albuterol Sulfate 90 Mcg 8 Gm Inhaler INHALE 2 puff Q4H PRN Administration Shortness Of Breath Baclofen 10 mg 04/18/20 21:00 04/24/20 08:29 Baclofen 10 Mg Tablet PO 10 mg BID [facility] Administration Calcium Carbonate 300 mg 04/18/20 18:15 04/23/20 09:38 Calcium Carbonate 750 Mg Tab.Chew PO 300 mg TID PRN Administration Heartburn Docusate Sodium 100 mg 04/18/20 18:15 Docusate Sodium 100 Mg Capsule PO BID PRN Constipation Fluticasone Propionate 2 puff 04/18/20 20:00 04/24/20 07:55 Fluticasone Propionate 250 Mcg Blst.W.Dev INHALE 2 puff RBID [facility] Administration Folic Acid 1 mg 04/19/20 09:00 04/24/20 08:28 Folic Acid 1 Mg Tablet PO 1 mg DAILY [facility] Administration Gabapentin 300 mg 04/18/20 21:00 04/22/20 08:36 Gabapentin 300 Mg Capsule PO 300 mg TID [facility] Administration Piperacillin Sod/Tazobactam 50 mls @ 100 mls/hr 04/18/20 18:15 04/24/20 12:33 Sod 3.375 gm/ Sodium Chloride IV 100 mls/hr Q6H [facility] Administration Lactulose 30 gm 04/22/20 17:00 04/24/20 12:33 Lactulose 20 Gm/30 Ml Solution PO 30 gm QID [facility] Administration Loratadine 10 mg 04/19/20 09:00 04/24/20 08:28 Loratadine 10 Mg Tablet PO 10 mg DAILY [facility] Administration Magnesium Oxide 400 mg 04/18/20 21:00 04/24/20 08:29 Magnesium Oxide 400 Mg Tablet PO 400 mg BID [facility] Administration Non-Formulary Medication 2 puff 04/19/20 09:00 Tiotropium-Olodaterol [Stiolto Respimat] INHALE DAILY [facility] Non-Formulary Medication 1 patch 04/19/20 14:15 Buprenorphine TRANSDERMA QWEEK [facility] Omeprazole 20 mg 04/19/20 06:30 04/24/20 05:24 Omeprazole 20 Mg Capsule.Dr PO 20 mg BID@0630,8170 [facility] Administration Ondansetron HCl 4 mg 04/18/20 18:15 Ondansetron Hcl 4 Mg/2 Ml Vial IVPUSH Q8H PRN Nausea and Vomiting Oxycodone HCl 5 mg 04/19/20 14:12 04/21/20 17:09 Oxycodone Hcl Immed Release 5 Mg Tablet PO 5 mg Q4H PRN Administration severe pain Pharmacy Consult 1 each 04/18/20 12:57 Consult Rx Perform Med Rec MISCELLANE ONCE PRN Consult order Potassium Chloride 40 meq 04/22/20 09:00 04/24/20 08:28 Potassium Chloride Er 20 Meq Tab.Er.Prt PO 40 meq BID [facility] Administration Pyridoxine HCl 50 mg 04/19/20 09:00 04/24/20 08:28 Pyridoxine Hcl (Vitamin B6) 50 Mg Tablet PO 50 mg DAILY [facility] Administration Rifaximin 550 mg 04/18/20 21:00 04/24/20 08:28 Rifaximin 550 Mg Tablet PO 550 mg BID [facility] Administration Risperidone 1 mg 04/18/20 21:00 04/24/20 08:28 Risperidone 1 Mg Tablet PO 1 mg BID [facility] Administration Sodium Chloride 3 ml 04/19/20 00:00 04/24/20 08:27 0.9 % Sodium Chloride Flush 3 Ml Syringe IVFLUSH 3 ml QSHIFT [facility] Administration Spironolactone 50 mg 04/20/20 09:00 04/24/20 08:28 Spironolactone 25 Mg Tablet PO 50 mg DAILY [facility] Administration Protocol Thiamine HCl 100 mg 04/19/20 09:00 04/24/20 08:29 Thiamine Hcl 100 Mg Tablet PO 100 mg DAILY [facility] Administration Torsemide 40 mg 04/19/20 09:00 04/24/20 08:28 Torsemide 20 Mg Tablet PO 40 mg DAILY [facility] Administration Protocol Vitamin D 50 mcg 04/19/20 09:00 04/24/20 08:28 Cholecalciferol (Vitamin D3) 25 Mcg Tablet PO 50 mcg DAILY [facility] Administration Labs CBC & Chem 7: 04/24/20 05:47 04/24/20 05:47 Microbiology Microbiology Results: Microbiology 04/18/20 12:39 Blood - Venous Blood Culture - Final No growth after 5 days. 04/18/20 11:12 Blood - Venous Blood Culture - Final No growth after 5 days. Assessment and Plan (1) Hepatic encephalopathy: Status: Acute (2) Chronic liver failure: Status: Acute (3) Abnormal CT scan, gastrointestinal tract: Status: Acute Assessment and Plan: hospital d#3 54yo F with decompensated EtOH cirrhosis s/p TIPS, DM2, COPD, chronic back pain, bipolar disorder, opioid abuse admitted for hepatic encephalopathy, question of intraperitoneal air 1. hepatic encephalopathy - continue lactulose + rifaximin passing bowels, adjust electrolytes to q.i.d. 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 2.intraperitoneal air- benign per Surg, possibly ble from serosa/omentum. no inflammatory changes in GI tract. not a surgical candidate due to advanced cirrhosis She denies any abdominal pain, soft above abdomen. on zosyn day6 Will continue to monitor. 3. hyponatremia: improved - chronic, due to cirrhosis; improving. continue fluid restriction 1500 mL/d. recheck BMP in am 4.: Hypokalemia, borderline magnesium: Patient also has PACs on the tele. Adjusted p.o. potassium b.i.d. also continue magnesium p.o. also. 5. anemia- likely due to cirrhosis-? portal gastropathy. H&H is stable around 9/27.2 range on empiric PPI. liver us-unsuccessful as per the radiology. ? Hemolysis also probably question related to liver disease Iron studies more of chronic disease Folate and B12 level is seems fine LDH is elevated but seems better than previous values. SIEP added by hematology 6.thrombocytopenia - due to cirrhosis. avoid heparin. stable. 7.edema- continue torsemide, increased spironolactone,add albumin- monitor BMP 8.cirrhosis, decompensated. MELD 29 - avoid EtOH - sees Dr Dias at [facility] [place] - outpt transplant evaluation - maintain sobriety Bilirubin is improving trending down GI recommended IV vitamin K today is day 3 lft's improving 9. chronic pain disorder- gabapentin 10. mood disorder- continue risperidone 11.opioid use disorder - continue Butrans patch or hospital formulary equivalent 12. DM2 - d/c MTF, last A1c only 4.1 VTE ppx - SCDs, avoid heparin
[2020-04-25] VITALS (8 sets, daily range): BP systolic 102–126; BP diastolic 56–72; PULSE 80–90; RESP 18–20; TEMP 36.1–37.1; O2SAT 95–98
[2020-04-25] MEDS: Piperacillin Sodium/Tazobactam 3.375 GM in 0.9 % Sodium Chloride 50 ML IV ×5 (00:03→23:27)
[2020-04-25] MEDS: Omeprazole 20 MG CAPSULE.DR PO ×2 (05:59→17:35)
[2020-04-25] MEDS: Fluticasone Propionate 250 MCG BLST.W.DEV 2 PUFF INHALE ×2 (07:38→19:42)
[2020-04-25] MEDS: Lactulose 20 GM/30 ML SOLUTION 30 GM PO ×4 (07:51→19:45)
[2020-04-25] MEDS: Potassium Chloride ER 20 MEQ TAB.ER.PRT 40 MEQ PO ×2 (07:51→19:42)
[2020-04-25] MEDS: Spironolactone 25 MG TABLET 50 MG PO (07:52)
[2020-04-25] MEDS: Cholecalciferol (Vitamin D3) 25 MCG TABLET 50 MCG PO (07:52)
[2020-04-25] MEDS: Torsemide 20 MG TABLET 40 MG PO (07:52)
[2020-04-25] MEDS: Loratadine 10 MG TABLET PO (07:53)
[2020-04-25] MEDS: 0.9 % Sodium Chloride Flush 3 ML SYRINGE IVFLUSH ×3 (07:53→19:43)
[2020-04-25] MEDS: Magnesium Oxide 400 MG TABLET PO ×2 (07:53→19:42)
[2020-04-25] MEDS: risperiDONE 1 MG TABLET PO ×2 (07:53→19:42)
[2020-04-25] MEDS: rifAXIMin 550 MG TABLET PO ×2 (07:53→19:42)
[2020-04-25] MEDS: Thiamine HCL 100 MG TABLET PO (07:53)
[2020-04-25] MEDS: Pyridoxine HCl (Vitamin B6) 50 MG TABLET PO (07:53)
[2020-04-25] MEDS: Baclofen 10 MG TABLET PO ×2 (07:53→19:42)
[2020-04-25] MEDS: Folic Acid 1 MG TABLET PO (07:53)
--- NOTE | 2020-04-25 08:16 | PM.PNGS ---
Subjective Subjective Date of Service: 04/25/20 Interval history: Denies pain Has GI function No reported events Physical Exam Vital Signs: Vital Signs: Last Vital Signs Temp 98.0 F 04/25/20 07:35 Pulse 80 04/25/20 07:52 Resp 18 04/25/20 07:35 BP 116/67 04/25/20 07:52 Pulse Ox 97 04/25/20 07:35 Body Mass Index 40.0 Chemistry 04/18/20 04/19/20 04/20/20 11:12 08:18 05:48 Sodium Potassium Carbon Dioxide BUN Creatinine Calcium Total Bilirubin 9.1 H 12.0 H 17.1 H 04/21/20 04/23/20 04/24/20 06:02 05:54 05:47 Sodium 138 142 Potassium 3.2 L 3.2 L Carbon Dioxide 30 H 31 H BUN 6 L 6 L Creatinine 0.65 0.71 Calcium 8.0 L 8.1 L Total Bilirubin 14.8 H 12.4 H 13.3 H Hematology 04/23/20 04/24/20 05:54 05:47 Hgb 8.3 L 9.0 L Const: Other: Deeply icteric General: comfortable and no acute distress Eyes: Sclerae: scleral abnormal (Deeply icteric) Resp: Effort & Inspection: normal respiratory effort Cardio: Rhythm: regular rhythm GI: Palpation (GI): Soft to palpation, not firm, no guarding and not rigid Progress Note: A&P Assessment and plan (1) Abnormal CT scan, gastrointestinal tract: Status: Acute Assessment and Plan: Had small locule of air in ascites Benign pneumoperitoneum Abdominal exam remains very benign Has advanced liver disease Has good GI function Bilirubin remains high Anemia from gastropathy Management as per Medical Service Fall Risk Details Current Medications: Current Medications Generic Name Dose Route Start Last Admin Trade Name Freq PRN Reason Stop Dose Admin Albuterol Sulfate 2 puff 04/18/20 18:15 04/23/20 08:08 Albuterol Sulfate 90 Mcg 8 Gm Inhaler INHALE 2 puff Q4H PRN Administration Shortness Of Breath Baclofen 10 mg 04/18/20 21:00 04/25/20 07:53 Baclofen 10 Mg Tablet PO 10 mg BID [facility] Administration Calcium Carbonate 300 mg 04/18/20 18:15 04/23/20 09:38 Calcium Carbonate 750 Mg Tab.Chew PO 300 mg TID PRN Administration Heartburn Docusate Sodium 100 mg 04/18/20 18:15 Docusate Sodium 100 Mg Capsule PO BID PRN Constipation Fluticasone Propionate 2 puff 04/18/20 20:00 04/25/20 07:38 Fluticasone Propionate 250 Mcg Blst.W.Dev INHALE 2 puff RBID [facility] Administration Folic Acid 1 mg 04/19/20 09:00 04/25/20 07:53 Folic Acid 1 Mg Tablet PO 1 mg DAILY [facility] Administration Gabapentin 300 mg 04/18/20 21:00 04/22/20 08:36 Gabapentin 300 Mg Capsule PO 300 mg TID [facility] Administration Piperacillin Sod/Tazobactam 50 mls @ 100 mls/hr 04/18/20 18:15 04/25/20 06:27 Sod 3.375 gm/ Sodium Chloride IV Infused Q6H [facility] Infusion Lactulose 30 gm 04/22/20 17:00 04/25/20 07:51 Lactulose 20 Gm/30 Ml Solution PO 30 gm QID [facility] Administration Loratadine 10 mg 04/19/20 09:00 04/25/20 07:53 Loratadine 10 Mg Tablet PO 10 mg DAILY [facility] Administration Magnesium Oxide 400 mg 04/18/20 21:00 04/25/20 07:53 Magnesium Oxide 400 Mg Tablet PO 400 mg BID [facility] Administration Non-Formulary Medication 2 puff 04/19/20 09:00 Tiotropium-Olodaterol [Stiolto Respimat] INHALE DAILY [facility] Non-Formulary Medication 1 patch 04/19/20 14:15 Buprenorphine TRANSDERMA QWEEK [facility] Omeprazole 20 mg 04/19/20 06:30 04/25/20 05:59 Omeprazole 20 Mg Capsule.Dr PO 20 mg BID@0630,1630 [facility] Administration Ondansetron HCl 4 mg 04/18/20 18:15 Ondansetron Hcl 4 Mg/2 Ml Vial IVPUSH Q8H PRN Nausea and Vomiting Oxycodone HCl 5 mg 04/19/20 14:12 04/21/20 17:09 Oxycodone Hcl Immed Release 5 Mg Tablet PO 5 mg Q4H PRN Administration severe pain Pharmacy Consult 1 each 04/18/20 12:57 Consult Rx Perform Med Rec MISCELLANE ONCE PRN Consult order Potassium Chloride 40 meq 04/22/20 09:00 02/08/21 07:51 Potassium Chloride Er 20 Meq Tab.Er.Prt PO 40 meq BID [facility] Administration Pyridoxine HCl 50 mg 04/19/20 09:00 04/25/20 07:53 Pyridoxine Hcl (Vitamin B6) 50 Mg Tablet PO 50 mg DAILY [facility] Administration Rifaximin 550 mg 04/18/20 21:00 04/25/20 07:53 Rifaximin 550 Mg Tablet PO 550 mg BID [facility] Administration Risperidone 1 mg 04/18/20 21:00 04/25/20 07:53 Risperidone 1 Mg Tablet PO 1 mg BID [facility] Administration Sodium Chloride 3 ml 04/19/20 00:00 04/25/20 07:53 0.9 % Sodium Chloride Flush 3 Ml Syringe IVFLUSH 3 ml QSHIFT [facility] Administration Spironolactone 50 mg 04/20/20 09:00 04/25/20 07:52 Spironolactone 25 Mg Tablet PO 50 mg DAILY [facility] Administration Protocol Thiamine HCl 100 mg 04/19/20 09:00 04/25/20 07:53 Thiamine Hcl 100 Mg Tablet PO 100 mg DAILY [facility] Administration Torsemide 40 mg 04/19/20 09:00 04/25/20 07:52 Torsemide 20 Mg Tablet PO 40 mg DAILY [facility] Administration Protocol Vitamin D 50 mcg 04/19/20 09:00 04/25/20 07:52 Cholecalciferol (Vitamin D3) 25 Mcg Tablet PO 50 mcg DAILY [facility] Administration Time Spent With Patient Time: Total time spent is greater than 50% in coordination of care (as documented) at patient's floor/unit and/or counseling patient: Time with patient: 15 - 24 minutes
[2020-04-25 10:16] LABS: Anion Gap 17 (12-20); Blood Urea Nitrogen 7 mg/dL (9-16); Calcium 8.4 mg/dL (8.4-10.2); Carbon Dioxide 30 mmol/L (22-29); Chloride 101 mmol/L (96-108); Estimated Glomerular Filt Rate > 60; Glucose Random 126 mg/dL (60-115); Potassium 3.5 mmol/L (3.3-5.1); Sodium 144 mmol/L (135-145)
--- NOTE | 2020-04-25 11:15 | MHC.CM.PN ---
DP Female 55 dx Hepatic Plan for [facility] to see prior to DC. Chair cammy greenwood S for transport. CM will follow.
[2020-04-25 14:59] LABS: Alanine Aminotransferase 22 U/L (0-31); Albumin Level 2.5 g/dL (3.5-5.0); Alkaline Phosphatase 161 U/L (39-117); Aspartate Amino Transferase 60 U/L (5-31); Bilirubin Direct 7.3 mg/dL (0.0-0.5); Bilirubin Total 14.7 mg/dL (0.0-1.0); Total Protein 5.7 g/dL (6.5-8.0)
--- NOTE | 2020-04-25 15:42 | MHC.CM.PN ---
CM met with Patient to discuss PT's recommendation for dc to SNF. Patient's first choice is [facility], but they cannot accommodate the Suboxone. Patient is agreeable to go to [facility], who can accommodate the vSuboxone and CM has asked [facility] to initiate the authorization process.CM will follow.
--- NOTE | 2020-04-25 18:57 | HO.PM.IMPN ---
Subjective Subjective Date of Service: 04/25/20 Interval History: Advanced liver disease Review of Systems Denies any chest pain shortness of breath or abdominal pain or fever chills. Physical Exam Vital Signs: Vital Signs: Last Vital Signs Temp 98.8 F 04/25/20 15:47 Pulse 85 04/25/20 15:47 Resp 20 04/25/20 15:47 BP 117/62 04/25/20 15:47 Pulse Ox 97 04/25/20 15:47 Body Mass Index 40.0 physical exam: Constitutional: Not in acute distress Cvs: rrr, [id number] , no murmur res: clear to auscultation ,no rhonchii or wheezing abd: no rebound or guarding ,nt, bs present. ext pulses present , no cyanosis neuro: axo3 , nonfocal. Objective Data Current Medications Generic Name Dose Route Start Last Admin Trade Name Freq PRN Reason Stop Dose Admin Albuterol Sulfate 2 puff 04/18/20 18:15 04/23/20 08:08 Albuterol Sulfate 90 Mcg 8 Gm Inhaler INHALE 2 puff Q4H PRN Administration Shortness Of Breath Baclofen 10 mg 04/18/20 21:00 04/25/20 07:53 Baclofen 10 Mg Tablet PO 10 mg BID LILLI Administration Calcium Carbonate 300 mg 04/18/20 18:15 04/23/20 09:38 Calcium Carbonate 750 Mg Tab.Chew PO 300 mg TID PRN Administration Heartburn Docusate Sodium 100 mg 04/18/20 18:15 Docusate Sodium 100 Mg Capsule PO BID PRN Constipation Fluticasone Propionate 2 puff 04/18/20 20:00 04/25/20 07:38 Fluticasone Propionate 250 Mcg Blst.W.Dev INHALE 2 puff RBID LILLI Administration Folic Acid 1 mg 04/19/20 09:00 04/25/20 07:53 Folic Acid 1 Mg Tablet PO 1 mg DAILY LILLI Administration Gabapentin 300 mg 04/18/20 21:00 04/22/20 08:36 Gabapentin 300 Mg Capsule PO 300 mg TID LILLI Administration Piperacillin Sod/Tazobactam 50 mls @ 100 mls/hr 04/26/20 00:00 Sod 3.375 gm/ Sodium Chloride IV Q6H LILLI Lactulose 30 gm 04/22/20 17:00 04/25/20 17:35 Lactulose 20 Gm/30 Ml Solution PO 30 gm QID LILLI Administration Loratadine 10 mg 04/19/20 09:00 04/25/20 07:53 Loratadine 10 Mg Tablet PO 10 mg DAILY LILLI Administration Magnesium Oxide 400 mg 04/18/20 21:00 04/25/20 07:53 Magnesium Oxide 400 Mg Tablet PO 400 mg BID LILLI Administration Non-Formulary Medication 2 puff 04/19/20 09:00 Tiotropium-Olodaterol [Stiolto Respimat] INHALE DAILY [facility] Non-Formulary Medication 1 patch 04/19/20 14:15 Buprenorphine TRANSDERMA QWEEK [facility] Omeprazole 20 mg 04/19/20 06:30 04/25/20 17:35 Omeprazole 20 Mg Capsule. PO 20 mg BID@0630,1630 LILLI Administration Ondansetron HCl 4 mg 04/18/20 18:15 Ondansetron Hcl 4 Mg/2 Ml Vial IVPUSH Q8H PRN Nausea and Vomiting Oxycodone HCl 5 mg 04/19/20 14:12 04/21/20 17:09 Oxycodone Hcl Immed Release 5 Mg Tablet PO 5 mg Q4H PRN Administration severe pain Pharmacy Consult 1 each 04/18/20 12:57 Consult Rx Perform Med Rec MISCELLANE ONCE PRN Consult order Potassium Chloride 40 meq 04/22/20 09:00 04/25/20 07:51 Potassium Chloride Er 20 Meq Tab.Er.Prt PO 40 meq BID LILLI Administration Pyridoxine HCl 50 mg 04/19/20 09:00 04/25/20 07:53 Pyridoxine Hcl (Vitamin B6) 50 Mg Tablet PO 50 mg DAILY LILLI Administration Rifaximin 550 mg 04/18/20 21:00 04/25/20 07:53 Rifaximin 550 Mg Tablet PO 550 mg BID LILLI Administration Risperidone 1 mg 04/18/20 21:00 04/25/20 07:53 Risperidone 1 Mg Tablet PO 1 mg BID LILLI Administration Sodium Chloride 3 ml 04/19/20 00:00 04/25/20 13:37 0.9 % Sodium Chloride Flush 3 Ml Syringe IVFLUSH 3 ml QSHIFT LILLI Administration Spironolactone 50 mg 04/20/20 09:00 04/25/20 07:52 Spironolactone 25 Mg Tablet PO 50 mg DAILY LILLI Administration Protocol Thiamine HCl 100 mg 04/19/20 09:00 04/25/20 07:53 Thiamine Hcl 100 Mg Tablet PO 100 mg DAILY LILLI Administration Torsemide 40 mg 04/19/20 09:00 04/25/20 07:52 Torsemide 20 Mg Tablet PO 40 mg DAILY LILLI Administration Protocol Vitamin D 50 mcg 04/19/20 09:00 04/25/20 07:52 Cholecalciferol (Vitamin D3) 25 Mcg Tablet PO 50 mcg DAILY LILLI Administration Labs CBC & Chem 7: 04/24/20 05:47 04/25/20 09:24 Microbiology Microbiology Results: Microbiology 04/18/20 12:39 Blood - Venous Blood Culture - Final No growth after 5 days. 04/18/20 11:12 Blood - Venous Blood Culture - Final No growth after 5 days. Assessment and Plan (1) Anemia: Status: Acute (2) Chronic liver failure: Status: Acute (3) Hepatic encephalopathy: Status: Acute (4) Abnormal CT scan, gastrointestinal tract: Status: Acute Assessment and Plan: hospital d#3 54yo F with decompensated EtOH cirrhosis s/p TIPS, DM2, COPD, chronic back pain, bipolar disorder, opioid abuse admitted for hepatic encephalopathy, question of intraperitoneal air 1. hepatic encephalopathy - continue lactulose + rifaximin passing bowels, adjust electrolytes to q.i.d. 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 2.intraperitoneal air- benign per Surg, possibly ble from serosa/omentum. no inflammatory changes in GI tract. not a surgical candidate due to advanced cirrhosis She denies any abdominal pain, soft above abdomen. on zosyn day7 Will continue to monitor. 3. hyponatremia: improved - chronic, due to cirrhosis; improving. continue fluid restriction 1500 mL/d. recheck BMP in am 4.: Hypokalemia, borderline magnesium: repleted and resolvedo. 5. anemia- likely due to cirrhosis-? portal gastropathy. H&H is stable around 9/27.2 range on empiric PPI. liver us-unsuccessful as per the radiology. ? Hemolysis also probably question related to liver disease Iron studies more of chronic disease Folate and B12 level is seems fine LDH is elevated but seems better than previous values. SIEP added by hematology 6.thrombocytopenia - due to cirrhosis. avoid heparin. stable. 7.edema- continue torsemide, increased spironolactone,add albumin- monitor BMP 8.cirrhosis, decompensated. MELD 29 - avoid EtOH - sees Dr Dias at [facility] - outpt transplant evaluation - maintain sobriety Bilirubin is improving trending down GI recommended IV vitamin K today is day 3 lft's improving 9. chronic pain disorder- gabapentin 10. mood disorder- continue risperidone 11.opioid use disorder - continue Butrans patch or hospital formulary equivalent 12. DM2 - d/c MTF, last A1c only 4.1 VTE ppx - SCDs, avoid heparin
--- NOTE | 2020-04-26 03:25 | PC.NURSE ---
PT requires frequent redirection from staff and has been noncompliant with her care. The patient is alert and oriented X4 and admits to not knowing why she has not rang appropriately to use the bathroom and/or pulled out her IV's. Since this tech writer has been caring for patient, the patient has removed 5+ IV's for unknown reasons and states that she doesn't remember . The patient has continuously soiled herself in the bed and now has developed excoriation to her buttocks. Pt repeatedly states she is unaware she is doing these things but remains alert and oriented throughout the shift. The patient has a telesitter in the room but changes position to be out of the line of sight in order to remove her IV. The nurse prior, alerted the doctor as patient has poor IV access and was informed that IV access was necessary due to her IV antibiotics. Access will be attempted once again.
[2020-04-26 03:38] VITALS: BP 113/62; PULSE 82; RESP 18; TEMP 36.3; O2SAT 92
[2020-04-26] MEDS: Omeprazole 20 MG CAPSULE.DR PO (05:15)
[2020-04-26] MEDS: Piperacillin Sodium/Tazobactam 3.375 GM in 0.9 % Sodium Chloride 50 ML IV (05:18)
[2020-04-26 06:49] VITALS: BP 128/64; PULSE 82; RESP 18; TEMP 36.3; O2SAT 97
[2020-04-26] MEDS: Fluticasone Propionate 250 MCG BLST.W.DEV 2 PUFF INHALE (07:30)
[2020-04-26 07:32] VITALS: PULSE 82; O2SAT 98
--- NOTE | 2020-04-26 08:08 | MHC.CM.PN ---
Per discussion with MD, Patient will be medically cleared for dc to SNF today. Patient will dc to [facility] today at 11 AM, [facility]. Second IMM addressed with Patient this morning and original has been given to her and a copy has been placed on the chart. Patient is aware of and in agreement with the dc plan.CM also informed patient's HCP/Malena @ [phone] of the dc plan.
[2020-04-26 09:04] LABS: COVID-19 Test Negative (Negative); IDNOW Serial# 9DD0AD1C
[2020-04-26] MEDS: 0.9 % Sodium Chloride Flush 3 ML SYRINGE IVFLUSH (09:11)
[2020-04-26] MEDS: Potassium Chloride ER 20 MEQ TAB.ER.PRT 40 MEQ PO (09:12)
[2020-04-26] MEDS: Calcium Carbonate 750 MG TAB.CHEW 300 MG PO (09:12)
[2020-04-26] MEDS: Torsemide 20 MG TABLET 40 MG PO (09:12)
[2020-04-26 09:13] VITALS: BP 128/64; PULSE 82
[2020-04-26] MEDS: Spironolactone 25 MG TABLET 50 MG PO (09:13)
[2020-04-26] MEDS: Thiamine HCL 100 MG TABLET PO (09:13)
[2020-04-26] MEDS: risperiDONE 1 MG TABLET PO (09:13)
[2020-04-26] MEDS: Loratadine 10 MG TABLET PO (09:13)
[2020-04-26] MEDS: Cholecalciferol (Vitamin D3) 25 MCG TABLET 50 MCG PO (09:13)
[2020-04-26] MEDS: Gabapentin 300 MG CAPSULE PO (09:14)
[2020-04-26] MEDS: Lactulose 20 GM/30 ML SOLUTION 30 GM PO (09:14)
[2020-04-26] MEDS: Baclofen 10 MG TABLET PO (09:14)
[2020-04-26] MEDS: Folic Acid 1 MG TABLET PO (09:14)
[2020-04-26] MEDS: Pyridoxine HCl (Vitamin B6) 50 MG TABLET PO (09:14)
[2020-04-26] MEDS: Magnesium Oxide 400 MG TABLET PO (09:14)
--- NOTE | 2020-04-26 10:13 | P.DS_ITS ---
DS: Providers Provider Date of Service: 04/26/20 Date of admission: 04/18/20 18:15 Primary care physician: Nuvia Bagley NP Consults: 04/18/20 18:15 Consult to Gastroenterology Routine Consulting Provider: Gregory Bower Reason for consultation: LIVER CIRRHOSIS Has provider been notified: No 04/19/20 10:17 Consult to General Surgery Routine Consulting Provider: Silvino Castle Reason for consultation: CIRRHOSIS/HEPATIC ENCEPHALOPATHY 04/21/20 18:22 Consult to Hematology / Oncology Routine Consulting Provider: Sandra Ford Reason for consultation: WORSENING anemia ,? Hemolysis component Has provider been notified: No DS: Diagnosis Discharge Diagnosis (1) Anemia: Status: Acute (2) Chronic liver failure: Status: Acute (3) Hepatic encephalopathy: Status: Acute (4) Abnormal CT scan, gastrointestinal tract: Status: Acute DS: Medications Discharge Medications Home Medications: Home Medications Medication Instructions Recorded Confirmed Xifaxan 550 mg PO BID 01/20/20 04/18/20 folic acid 1 mg PO DAILY 01/20/20 04/18/20 potassium chloride 40 meq PO DAILY 01/20/20 04/18/20 Flovent HFA 2 puff INHALATION BID 02/09/20 04/18/20 albuterol sulfate 2 puff INHALATION Q4H PRN 02/09/20 04/18/20 calcium carbonate [Antacid Ext Str 1 tab PO TID PRN 02/09/20 04/18/20 (calcium carb)] thiamine HCl (vitamin B1) 100 mg PO DAILY 02/09/20 04/18/20 baclofen 10 mg PO BID 02/13/20 04/18/20 cetirizine 10 mg PO DAILY 02/19/20 04/18/20 metformin 750 mg PO DAILY@1700 02/19/20 04/18/20 pyridoxine (vitamin B6) 50 mg PO DAILY 02/19/20 04/18/20 Stiolto Respimat 2 puff INHALATION DAILY 02/26/20 04/18/20 acetaminophen 500 mg PO Q6H PRN 04/18/20 04/18/20 buprenorphine 1 patch TRANSDERMAL QWEEK 04/18/20 04/18/20 cholecalciferol (vitamin D3) 50 mcg PO DAILY 04/18/20 04/18/20 [Vitamin D3] docusate sodium 100 mg PO BID PRN 04/18/20 04/18/20 gabapentin 300 mg PO TID 04/18/20 04/18/20 magnesium oxide 400 mg PO BID 04/18/20 04/18/20 omeprazole 20 mg PO BID@0630,1630 04/18/20 04/18/20 risperidone 1 mg PO BID 04/18/20 04/18/20 spironolactone 25 mg PO DAILY 04/18/20 04/18/20 torsemide 40 mg PO DAILY 04/18/20 04/18/20 Previous Rx's Medication Instructions Recorded lactulose 30 g PO TID #240 ml 02/23/20 DS: Summary Hospital Course Hospital Course: 55-year-old woman presenting to the ER with complaints of increased confusion. She was in the ED on 04/17 for altered mental status, right upper quadrant pain with nausea. At that time her ammonia level was stable and she was alert and oriented. She was discharged home to continue her home regimen. She does have a history past alcohol abuse and heroin abuse. She is status post TIPS procedure. Her ammonia was noted to be 95 in the ER and she did seem to have more confusion therefore she presented back to the ER today. She reported some nausea and constipation. Her bili is 9.1 and usually elevated, sodium 127. Abdominal CT showed Cirrhotic-appearing liver. Small amount of ascites with small focus of air seen in the ascitic fluid in the right upper quadrant, question representing partial volume averaging with a loop of small bowel containing air. Possible small amount of free intraperitoneal air. She was seen and evaluated by General surgery who discussed the patient's case with her healthcare proxy, Malena Lea. Apparently patient has had a steady decline in her overall condition and patient is not to undergo any aggressive or major surgical procedures. After 1 dose of lactulose in the ER she did have some loose stools. She also received oxycodone, 1 L of IV fluid, albumin and oxycodone. Hospital course problem bryan section: 54yo F with decompensated EtOH cirrhosis s/p TIPS, DM2, COPD, chronic back pain, bipolar disorder, opioid abuse admitted for hepatic encephalopathy, question of intraperitoneal air 1. hepatic encephalopathy-patient was started on lactulose and rifaximin and having good bowel movement 3-4 a day and her encephalopathy seems to be improved significantly. Please monitor electrolytes and renal function closely out patiently. Her bilirubin is fluctuating between 12-13, patient is to follow up outpatient with her GI doctor Arun and from [facility]. Monitor LFT out patiently closely. 2. Initially was concern intraperitoneal air- benign per Surg, possibly ble from serosa/omentum. But no inflammatory changes in GI tract, not a surgical candidate due to advanced cirrhosis She denies any abdominal pain, soft above abdomen. Leukocytosis resolved, no fever, no new abdominal pain or any symptoms. Patient was receiving Zosyn for above concern please complete p.o. Augmentin for 3 more days. 3. hyponatremia: improved- chronic, due to cirrhosis. continue fluid restriction 1500 mL/d. Monitor electrolytes and renal function closely outpatient. 4.: Hypokalemia, borderline magnesium: Repleted and resolved,Monitor electrolytes and renal function closely outpatient. 5. anemia/thrombocytopenia- a thought to be related to likely due to cirrhosis Received 1 PRBC- H&H is stable around 12/12.2 range liver us-unsuccessful as per the radiology. ? Hemolysis also probably question related to liver disease Iron studies more of chronic disease Folate and B12 level is seems fine LDH is elevated but seems better than previous values. SIEP pending by hematology Patient is to follow-up with GI out patiently Dr. Dias from [facility] for above and advanced liver disease. Monitor CBC closely and further workup out patiently if needed consider hematology evaluation outpatient. INR was elevated but patient received 3 days of iv vitamin K, no acute bleeding. Monitor PT INR outpatient. edema probably related to liver disease also- continue torsemide, increased spironolactone,add albumin- monitor BMP 6. chronic pain disorder- gabapentin 7. mood disorder- continue risperidone 8.opioid use disorder- continue Butrans patch or hospital formulary equivalent 9 . DM2- d/c MTF, last A1c only 4.1. Above management discussed with the patient in detail length she understand and in agreement with the above plan, time spent 50 minutes and 50% time spent on counseling. Significant findings: As above. Procedures performed: None. Treatment and response: As above. Complications: None. Patient will benefit from less than 30 days rehab stay. Time Spent with Patient Time attestation: Total time spent providing and/or coordinating discharge services: Discharge coordination time: Greater than 30 minutes Physical Exam Vital Signs: Vital Signs: Last Vital Signs Temp 97.3 F 04/26/20 06:49 Pulse 82 04/26/20 09:13 Resp 18 04/26/20 06:49 BP 128/64 04/26/20 09:13 Pulse Ox 97 04/26/20 06:49 Body Mass Index 40.0 physical exam: HEENT: Eyes: Sclerae icteric, no discharge Neck supple Constitutional: Not in acute distress Cvs: rrr, [id number] , no murmur res: clear to auscultation ,no rhonchii or wheezing abd: no rebound or guarding ,nt, bs present. ext pulses present , no cyanosis neuro: axo3 , nonfocal. DS: Data Data Completed and Pending Completed studies during hospitalization [Text1]: Procedures Insertion of Endotracheal Airway into Trachea, Via Natural or Artificial Opening (03/29/20) Insertion of Infusion Device into Superior Vena Cava, Percutaneous Approach (03/29/20) Respiratory Ventilation, 24-96 Consecutive Hours (03/29/20) Transfusion of Nonautologous Red Blood Cells into Peripheral Vein, Percutaneous Approach (03/29/20) Ultrasonography of Superior Vena Cava, Guidance (03/29/20) Labs on day of discharge: Laboratory Tests 04/18/20 04/18/20 04/18/20 11:12 11:12 11:12 WBC 14.2 H RBC 2.62 L Hgb 8.9 L Hct 26.6 L MCV 101.5 H MCH 34.0 H MCHC 33.5 RDW 21.3 H Plt Count 74 L MPV 11.1 Immature Gran % (Auto) 0.8 H Neut % (Auto) 78.9 H Lymph % (Auto) 8.1 L Holmes % (Auto) 9.9 Eos % (Auto) 2.1 Baso % (Auto) 0.2 Lymph # (Auto) 1.2 Holmes # (Auto) 1.4 H Eos # (Auto) 0.3 Baso # (Auto) 0.0 Abs Immat Gran (auto) 0.11 H Absolute Neuts (auto) 11.2 H Absolute Nucleated RBC 0.000 Nucleated RBC % (auto) 0.0 Smear Tech's Comments Absolute Retic Percent Retic Immature Retic Fraction Retic Hgb Equivalent Haptoglobin PT INR APTT VBG pH VBG pCO2 VBG pO2 VBG HCO3 VBG O2 Saturation VBG Base Excess Sodium 127 L Potassium 4.0 Chloride 89 L Carbon Dioxide 32 H Anion Gap 10 L BUN 8 L Creatinine 0.78 Estim Creat Clear Calc 84.9 Estimated GFR > 60 POC Glucose Random Glucose 134 H Estimat Average Glucose Hemoglobin A1c % Lactic Acid Calcium 7.6 L Magnesium 1.6 Iron TIBC % Saturation Unsat Iron Binding Ferritin Total Bilirubin 9.1 H Direct Bilirubin 5.0 H AST 47 H ALT 29 Alkaline Phosphatase 172 H Ammonia 95 H Lactate Dehydrogenase Total Protein 5.3 L Albumin 2.2 L Lipase Vitamin B12 Folate Urine Color Urine Appearance Urine pH Ur Specific [place] Urine Protein Urine Glucose (UA) Urine Ketones Urine Blood Urine Nitrite Ur Leukocyte Esterase Urine RBC Urine WBC Ur Squamous Epith Cells Urine Bacteria Urine Yeast Urine Opiates Screen Ur Barbiturates Screen Ur Phencyclidine Scrn Ur Amphetamines Screen U Benzodiazepines Scrn Urine Cocaine Screen U Marijuana (THC) Screen Ethyl Alcohol COVID-19 (GIOVANI) COVID-19 Clin Com Blood Type Antibody Screen Crossmatch 04/18/20 04/18/20 04/18/20 11:12 11:12 11:12 WBC RBC Hgb Hct MCV MCH MCHC RDW Plt Count MPV Immature Gran % (Auto) Neut % (Auto) Lymph % (Auto) Holmes % (Auto) Eos % (Auto) Baso % (Auto) Lymph # (Auto) Holmes # (Auto) Eos # (Auto) Baso # (Auto) Abs Immat Gran (auto) Absolute Neuts (auto) Absolute Nucleated RBC Nucleated RBC % (auto) Smear Tech's Comments Absolute Retic Percent Retic Immature Retic Fraction Retic Hgb Equivalent Haptoglobin PT 25.7 H INR 2.1 H APTT 53.3 H D VBG pH VBG pCO2 VBG pO2 VBG HCO3 VBG O2 Saturation VBG Base Excess Sodium Potassium Chloride Carbon Dioxide Anion Gap BUN Creatinine Estim Creat Clear Calc Estimated GFR POC Glucose Random Glucose Estimat Average Glucose Hemoglobin A1c % Lactic Acid Calcium Magnesium Iron TIBC % Saturation Unsat Iron Binding Ferritin Total Bilirubin Direct Bilirubin AST ALT Alkaline Phosphatase Ammonia Lactate Dehydrogenase Total Protein Albumin Lipase 26 Vitamin B12 Folate Urine Color Urine Appearance Urine pH Ur Specific [place] Urine Protein Urine Glucose (UA) Urine Ketones Urine Blood Urine Nitrite Ur Leukocyte Esterase Urine RBC Urine WBC Ur Squamous Epith Cells Urine Bacteria Urine Yeast Urine Opiates Screen Ur Barbiturates Screen Ur Phencyclidine Scrn Ur Amphetamines Screen U Benzodiazepines Scrn Urine Cocaine Screen U Marijuana (THC) Screen Ethyl Alcohol COVID-19 (GIOVANI) Negative COVID-19 Clin Com See Note Blood Type Antibody Screen Crossmatch 04/18/20 04/18/20 04/18/20 11:12 11:12 12:39 WBC RBC Hgb Hct MCV MCH MCHC RDW Plt Count MPV Immature Gran % (Auto) Neut % (Auto) Lymph % (Auto) Holmes % (Auto) Eos % (Auto) Baso % (Auto) Lymph # (Auto) Holmes # (Auto) Eos # (Auto) Baso # (Auto) Abs Immat Gran (auto) Absolute Neuts (auto) Absolute Nucleated RBC Nucleated RBC % (auto) Smear Tech's Comments Absolute Retic Percent Retic Immature Retic Fraction Retic Hgb Equivalent Haptoglobin PT INR APTT VBG pH 7.52 H VBG pCO2 48 VBG pO2 77 VBG HCO3 39 VBG O2 Saturation 95.0 VBG Base Excess 15.1 Sodium Potassium Chloride Carbon Dioxide Anion Gap BUN Creatinine Estim Creat Clear Calc Estimated GFR POC Glucose Random Glucose Estimat Average Glucose Hemoglobin A1c % Lactic Acid 1.3 Calcium Magnesium Iron TIBC % Saturation Unsat Iron Binding Ferritin Total Bilirubin Direct Bilirubin AST ALT Alkaline Phosphatase Ammonia Lactate Dehydrogenase Total Protein Albumin Lipase Vitamin B12 Folate Urine Color Urine Appearance Urine pH Ur Specific [place] Urine Protein Urine Glucose (UA) Urine Ketones Urine Blood Urine Nitrite Ur Leukocyte Esterase Urine RBC Urine WBC Ur Squamous Epith Cells Urine Bacteria Urine Yeast Urine Opiates Screen Ur Barbiturates Screen Ur Phencyclidine Scrn Ur Amphetamines Screen U Benzodiazepines Scrn Urine Cocaine Screen U Marijuana (THC) Screen Ethyl Alcohol < 10 COVID-19 (GIOVANI) COVID-19 Clin Com Blood Type Antibody Screen Crossmatch 04/19/20 04/19/20 04/19/20 08:18 08:18 08:18 WBC 11.2 H RBC 2.15 L Hgb 7.4 L Hct 21.9 L MCV 101.9 H MCH 34.4 H MCHC 33.8 RDW 21.8 H Plt Count 61 L MPV 10.8 Immature Gran % (Auto) 0.5 H Neut % (Auto) 80.7 H Lymph % (Auto) 7.2 L Holmes % (Auto) 10.1 Eos % (Auto) 1.2 Baso % (Auto) 0.3 Lymph # (Auto) 0.8 L Holmes # (Auto) 1.1 Eos # (Auto) 0.1 Baso # (Auto) 0.0 Abs Immat Gran (auto) 0.06 H Absolute Neuts (auto) 9.1 H Absolute Nucleated RBC 0.000 Nucleated RBC % (auto) 0.0 Smear Tech's Comments Absolute Retic Percent Retic Immature Retic Fraction Retic Hgb Equivalent Haptoglobin PT INR APTT VBG pH VBG pCO2 VBG pO2 VBG HCO3 VBG O2 Saturation VBG Base Excess Sodium 130 L Potassium 3.6 Chloride 94 L Carbon Dioxide 29 Anion Gap 11 L BUN 10 Creatinine 0.69 Estim Creat Clear Calc 96.0 Estimated GFR > 60 POC Glucose Random Glucose 103 Estimat Average Glucose Hemoglobin A1c % Lactic Acid Calcium 7.6 L Magnesium Iron TIBC % Saturation Unsat Iron Binding Ferritin Total Bilirubin 12.0 H Direct Bilirubin 6.0 H AST 38 H ALT 22 Alkaline Phosphatase 132 H D Ammonia 90 H Lactate Dehydrogenase Total Protein 4.7 L Albumin 2.2 L Lipase Vitamin B12 Folate Urine Color Urine Appearance Urine pH Ur Specific [place] Urine Protein Urine Glucose (UA) Urine Ketones Urine Blood Urine Nitrite Ur Leukocyte Esterase Urine RBC Urine WBC Ur Squamous Epith Cells Urine Bacteria Urine Yeast Urine Opiates Screen Ur Barbiturates Screen Ur Phencyclidine Scrn Ur Amphetamines Screen U Benzodiazepines Scrn Urine Cocaine Screen U Marijuana (THC) Screen Ethyl Alcohol COVID-19 (GIOVANI) COVID-19 Clin Com Blood Type Antibody Screen Crossmatch 04/19/20 04/19/20 04/19/20 08:55 19:30 Unknown WBC RBC Hgb Hct MCV MCH MCHC RDW Plt Count MPV Immature Gran % (Auto) Neut % (Auto) Lymph % (Auto) Holmes % (Auto) Eos % (Auto) Baso % (Auto) Lymph # (Auto) Holmes # (Auto) Eos # (Auto) Baso # (Auto) Abs Immat Gran (auto) Absolute Neuts (auto) Absolute Nucleated RBC Nucleated RBC % (auto) Smear Tech's Comments Absolute Retic Percent Retic Immature Retic Fraction Retic Hgb Equivalent Haptoglobin PT 28.6 H INR 2.4 H APTT VBG pH VBG pCO2 VBG pO2 VBG HCO3 VBG O2 Saturation VBG Base Excess Sodium Potassium Chloride Carbon Dioxide Anion Gap BUN Creatinine Estim Creat Clear Calc Estimated GFR POC Glucose Random Glucose Estimat Average Glucose Hemoglobin A1c % Lactic Acid Calcium Magnesium Iron TIBC % Saturation Unsat Iron Binding Ferritin Total Bilirubin Direct Bilirubin AST ALT Alkaline Phosphatase Ammonia Lactate Dehydrogenase Total Protein Albumin Lipase Vitamin B12 Folate Urine Color YELLOW Urine Appearance HAZY Urine pH 6.5 Ur Specific [place] 1.010 Urine Protein NEG Urine Glucose (UA) NEG Urine Ketones NEG Urine Blood 2+ H Urine Nitrite NEG Ur Leukocyte Esterase NEG Urine RBC 0-2 Urine WBC 0-2 Ur Squamous Epith Cells 1+ Urine Bacteria 1+ Urine Yeast TRACE Urine Opiates Screen Ur Barbiturates Screen Ur Phencyclidine Scrn Ur Amphetamines Screen U Benzodiazepines Scrn Urine Cocaine Screen U Marijuana (THC) Screen Ethyl Alcohol COVID-19 (GIOVANI) COVID-19 Clin Com Blood Type A Negative Antibody Screen NEGATIVE Crossmatch See Detail 04/19/20 04/20/20 04/20/20 Unknown 05:48 05:49 WBC RBC Hgb Hct MCV MCH MCHC RDW Plt Count MPV Immature Gran % (Auto) Neut % (Auto) Lymph % (Auto) Holmes % (Auto) Eos % (Auto) Baso % (Auto) Lymph # (Auto) Holmes # (Auto) Eos # (Auto) Baso # (Auto) Abs Immat Gran (auto) Absolute Neuts (auto) Absolute Nucleated RBC Nucleated RBC % (auto) Smear Tech's Comments Absolute Retic Percent Retic Immature Retic Fraction Retic Hgb Equivalent Haptoglobin PT 27.6 H INR 2.3 H APTT VBG pH VBG pCO2 VBG pO2 VBG HCO3 VBG O2 Saturation VBG Base Excess Sodium 132 L Potassium 2.9 L Chloride 94 L Carbon Dioxide 25 Anion Gap 16 BUN 9 Creatinine 0.61 Estim Creat Clear Calc 108.5 Estimated GFR > 60 POC Glucose Random Glucose 118 H Estimat Average Glucose Hemoglobin A1c % Lactic Acid Calcium 7.6 L Magnesium 1.5 L Iron TIBC % Saturation Unsat Iron Binding Ferritin Total Bilirubin 17.1 H Direct Bilirubin AST 51 H ALT 27 Alkaline Phosphatase 157 H Ammonia Lactate Dehydrogenase Total Protein 5.4 L Albumin 2.6 L Lipase Vitamin B12 Folate Urine Color Urine Appearance Urine pH Ur Specific [place] Urine Protein Urine Glucose (UA) Urine Ketones Urine Blood Urine Nitrite Ur Leukocyte Esterase Urine RBC Urine WBC Ur Squamous Epith Cells Urine Bacteria Urine Yeast Urine Opiates Screen Not Detected Ur Barbiturates Screen Not Detected Ur Phencyclidine Scrn Not Detected Ur Amphetamines Screen Not Detected U Benzodiazepines Scrn Not Detected Urine Cocaine Screen Not Detected U Marijuana (THC) Screen Not Detected Ethyl Alcohol COVID-19 (GIOVANI) COVID-19 Clin Com Blood Type Antibody Screen Crossmatch 04/20/20 04/21/20 04/21/20 05:49 06:02 06:02 WBC 12.0 H 10.1 RBC 2.20 L 2.00 L Hgb 7.5 L 6.8 L* Hct 22.5 L 20.3 L* MCV 102.3 H 101.5 H MCH 34.1 H 34.0 H MCHC 33.3 33.5 RDW 20.9 H 21.4 H Plt Count 67 L 58 L MPV 11.2 11.0 Immature Gran % (Auto) 0.8 H 0.8 H Neut % (Auto) 83.2 H 77.6 H Lymph % (Auto) 5.7 L 10.3 L Holmes % (Auto) 9.0 9.3 Eos % (Auto) 1.0 1.7 Baso % (Auto) 0.3 0.3 Lymph # (Auto) 0.7 L 1.0 L Holmes # (Auto) 1.1 0.9 Eos # (Auto) 0.1 0.2 Baso # (Auto) 0.0 0.0 Abs Immat Gran (auto) 0.09 H 0.08 H Absolute Neuts (auto) 9.9 H 7.8 Absolute Nucleated RBC 0.000 0.000 Nucleated RBC % (auto) 0.0 0.0 Smear Tech's Comments VERIFIED Absolute Retic 0.129 H Percent Retic 6.5 H Immature Retic Fraction 27.6 H Retic Hgb Equivalent 38.0 H Haptoglobin PT 27.5 H INR 2.3 H APTT VBG pH VBG pCO2 VBG pO2 VBG HCO3 VBG O2 Saturation VBG Base Excess Sodium Potassium Chloride Carbon Dioxide Anion Gap BUN Creatinine Estim Creat Clear Calc Estimated GFR POC Glucose Random Glucose Estimat Average Glucose Hemoglobin A1c % Lactic Acid Calcium Magnesium Iron TIBC % Saturation Unsat Iron Binding Ferritin Total Bilirubin Direct Bilirubin AST ALT Alkaline Phosphatase Ammonia Lactate Dehydrogenase Total Protein Albumin Lipase Vitamin B12 Folate Urine Color Urine Appearance Urine pH Ur Specific [place] Urine Protein Urine Glucose (UA) Urine Ketones Urine Blood Urine Nitrite Ur Leukocyte Esterase Urine RBC Urine WBC Ur Squamous Epith Cells Urine Bacteria Urine Yeast Urine Opiates Screen Ur Barbiturates Screen Ur Phencyclidine Scrn Ur Amphetamines Screen U Benzodiazepines Scrn Urine Cocaine Screen U Marijuana (THC) Screen Ethyl Alcohol COVID-19 (GIOVANI) COVID-19 Clin Com Blood Type Antibody Screen Crossmatch 04/21/20 04/21/20 04/21/20 06:02 06:02 06:02 WBC RBC Hgb Hct MCV MCH MCHC RDW Plt Count MPV Immature Gran % (Auto) Neut % (Auto) Lymph % (Auto) Holmes % (Auto) Eos % (Auto) Baso % (Auto) Lymph # (Auto) Holmes # (Auto) Eos # (Auto) Baso # (Auto) Abs Immat Gran (auto) Absolute Neuts (auto) Absolute Nucleated RBC Nucleated RBC % (auto) Smear Tech's Comments Absolute Retic Percent Retic Immature Retic Fraction Retic Hgb Equivalent Haptoglobin <8 L PT INR APTT VBG pH VBG pCO2 VBG pO2 VBG HCO3 VBG O2 Saturation VBG Base Excess Sodium 137 Potassium 3.0 L Chloride 96 Carbon Dioxide 28 Anion Gap 16 BUN 8 L Creatinine 0.61 Estim Creat Clear Calc 108.5 Estimated GFR > 60 POC Glucose Random Glucose 116 H Estimat Average Glucose Hemoglobin A1c % Lactic Acid Calcium 7.6 L Magnesium 1.6 Iron 112 TIBC < 129 L % Saturation TNP Unsat Iron Binding < 17 Ferritin 259 H Total Bilirubin 14.8 H Direct Bilirubin 7.9 H AST 54 H ALT 24 Alkaline Phosphatase 149 H Ammonia Lactate Dehydrogenase 332 H Total Protein 5.0 L Albumin 2.2 L Lipase Vitamin B12 > 2000 H Folate 19.5 Urine Color Urine Appearance Urine pH Ur Specific [place] Urine Protein Urine Glucose (UA) Urine Ketones Urine Blood Urine Nitrite Ur Leukocyte Esterase Urine RBC Urine WBC Ur Squamous Epith Cells Urine Bacteria Urine Yeast Urine Opiates Screen Ur Barbiturates Screen Ur Phencyclidine Scrn Ur Amphetamines Screen U Benzodiazepines Scrn Urine Cocaine Screen U Marijuana (THC) Screen Ethyl Alcohol COVID-19 (GIOVANI) COVID-19 Clin Com Blood Type Antibody Screen Crossmatch 04/21/20 04/22/20 04/22/20 06:02 05:34 05:34 WBC RBC Hgb 8.5 L D Hct 25.0 L D MCV MCH MCHC RDW Plt Count MPV Immature Gran % (Auto) Neut % (Auto) Lymph % (Auto) Holmes % (Auto) Eos % (Auto) Baso % (Auto) Lymph # (Auto) Holmes # (Auto) Eos # (Auto) Baso # (Auto) Abs Immat Gran (auto) Absolute Neuts (auto) Absolute Nucleated RBC Nucleated RBC % (auto) Smear Tech's Comments Absolute Retic Percent Retic Immature Retic Fraction Retic Hgb Equivalent Haptoglobin PT INR APTT VBG pH VBG pCO2 VBG pO2 VBG HCO3 VBG O2 Saturation VBG Base Excess Sodium 136 Potassium 3.0 L Chloride 95 L Carbon Dioxide 31 H Anion Gap 13 BUN 5 L Creatinine 0.73 Estim Creat Clear Calc 90.7 Estimated GFR > 60 POC Glucose Random Glucose 102 Estimat Average Glucose TNP Hemoglobin A1c % < 4.0 Lactic Acid Calcium 7.8 L Magnesium Iron TIBC % Saturation Unsat Iron Binding Ferritin Total Bilirubin Direct Bilirubin AST ALT Alkaline Phosphatase Ammonia Lactate Dehydrogenase 303 H Total Protein Albumin Lipase Vitamin B12 Folate Urine Color Urine Appearance Urine pH Ur Specific [place] Urine Protein Urine Glucose (UA) Urine Ketones Urine Blood Urine Nitrite Ur Leukocyte Esterase Urine RBC Urine WBC Ur Squamous Epith Cells Urine Bacteria Urine Yeast Urine Opiates Screen Ur Barbiturates Screen Ur Phencyclidine Scrn Ur Amphetamines Screen U Benzodiazepines Scrn Urine Cocaine Screen U Marijuana (THC) Screen Ethyl Alcohol COVID-19 (GIOVANI) COVID-19 Clin Com Blood Type Antibody Screen Crossmatch 04/23/20 04/23/20 04/23/20 05:54 05:54 05:54 WBC RBC Hgb 8.3 L Hct 24.7 L MCV MCH MCHC RDW Plt Count MPV Immature Gran % (Auto) Neut % (Auto) Lymph % (Auto) Holmes % (Auto) Eos % (Auto) Baso % (Auto) Lymph # (Auto) Holmes # (Auto) Eos # (Auto) Baso # (Auto) Abs Immat Gran (auto) Absolute Neuts (auto) Absolute Nucleated RBC Nucleated RBC % (auto) Smear Tech's Comments Absolute Retic Percent Retic Immature Retic Fraction Retic Hgb Equivalent Haptoglobin PT 31.0 H INR 2.6 H APTT VBG pH VBG pCO2 VBG pO2 VBG HCO3 VBG O2 Saturation VBG Base Excess Sodium 138 Potassium 3.2 L Chloride 96 Carbon Dioxide 30 H Anion Gap 15 BUN 6 L Creatinine 0.65 Estim Creat Clear Calc 101.8 Estimated GFR > 60 POC Glucose Random Glucose 110 Estimat Average Glucose Hemoglobin A1c % Lactic Acid Calcium 8.0 L Magnesium Iron TIBC % Saturation Unsat Iron Binding Ferritin Total Bilirubin 12.4 H Direct Bilirubin 6.2 H AST 57 H ALT 23 Alkaline Phosphatase 138 H Ammonia Lactate Dehydrogenase Total Protein 5.0 L Albumin 2.4 L Lipase Vitamin B12 Folate Urine Color Urine Appearance Urine pH Ur Specific [place] Urine Protein Urine Glucose (UA) Urine Ketones Urine Blood Urine Nitrite Ur Leukocyte Esterase Urine RBC Urine WBC Ur Squamous Epith Cells Urine Bacteria Urine Yeast Urine Opiates Screen Ur Barbiturates Screen Ur Phencyclidine Scrn Ur Amphetamines Screen U Benzodiazepines Scrn Urine Cocaine Screen U Marijuana (THC) Screen Ethyl Alcohol COVID-19 (GIOVANI) COVID-19 Clin Com Blood Type Antibody Screen Crossmatch 04/23/20 04/23/20 04/24/20 05:54 11:21 05:47 WBC RBC Hgb 9.0 L Hct 27.2 L MCV MCH MCHC RDW Plt Count MPV Immature Gran % (Auto) Neut % (Auto) Lymph % (Auto) Holmes % (Auto) Eos % (Auto) Baso % (Auto) Lymph # (Auto) Holmes # (Auto) Eos # (Auto) Baso # (Auto) Abs Immat Gran (auto) Absolute Neuts (auto) Absolute Nucleated RBC Nucleated RBC % (auto) Smear Tech's Comments Absolute Retic Percent Retic Immature Retic Fraction Retic Hgb Equivalent Haptoglobin PT INR APTT VBG pH VBG pCO2 VBG pO2 VBG HCO3 VBG O2 Saturation VBG Base Excess Sodium Potassium Chloride Carbon Dioxide Anion Gap BUN Creatinine Estim Creat Clear Calc Estimated GFR POC Glucose 136 H Random Glucose Estimat Average Glucose TNP Hemoglobin A1c % < 4.0 Lactic Acid Calcium Magnesium Iron TIBC % Saturation Unsat Iron Binding Ferritin Total Bilirubin Direct Bilirubin AST ALT Alkaline Phosphatase Ammonia Lactate Dehydrogenase Total Protein Albumin Lipase Vitamin B12 Folate Urine Color Urine Appearance Urine pH Ur Specific [place] Urine Protein Urine Glucose (UA) Urine Ketones Urine Blood Urine Nitrite Ur Leukocyte Esterase Urine RBC Urine WBC Ur Squamous Epith Cells Urine Bacteria Urine Yeast Urine Opiates Screen Ur Barbiturates Screen Ur Phencyclidine Scrn Ur Amphetamines Screen U Benzodiazepines Scrn Urine Cocaine Screen U Marijuana (THC) Screen Ethyl Alcohol COVID-19 (GIOVANI) COVID-19 [facility] Blood Type Antibody Screen Crossmatch 04/24/20 04/25/20 04/26/20 05:47 09:24 08:05 WBC RBC Hgb Hct MCV MCH MCHC RDW Plt Count MPV Immature Gran % (Auto) Neut % (Auto) Lymph % (Auto) [place] % (Auto) Eos % (Auto) Baso % (Auto) Lymph # (Auto) [place] # (Auto) Eos # (Auto) Baso # (Auto) Abs Immat Gran (auto) Absolute Neuts (auto) Absolute Nucleated RBC Nucleated RBC % (auto) Smear Tech's Comments Absolute Retic Percent Retic Immature Retic Fraction Retic Hgb Equivalent Haptoglobin PT INR APTT VBG pH VBG pCO2 VBG pO2 VBG HCO3 VBG O2 Saturation VBG Base Excess Sodium 142 144 Potassium 3.2 L 3.5 Chloride 98 101 Carbon Dioxide 31 H 30 H Anion Gap 16 17 BUN 6 L 7 L Creatinine 0.71 0.72 Estim Creat Clear Calc 93.2 92.0 Estimated GFR > 60 > 60 POC Glucose Random Glucose 91 126 H D Estimat Average Glucose Hemoglobin A1c % Lactic Acid Calcium 8.1 L 8.4 Magnesium Iron TIBC % Saturation Unsat Iron Binding Ferritin Total Bilirubin 13.3 H 14.7 H Direct Bilirubin 6.9 H 7.3 H AST 53 H 60 H ALT 22 22 Alkaline Phosphatase 149 H 161 H Ammonia Lactate Dehydrogenase Total Protein 5.1 L 5.7 L Albumin 2.4 L 2.5 L Lipase Vitamin B12 Folate Urine Color Urine Appearance Urine pH Ur Specific [place] Urine Protein Urine Glucose (UA) Urine Ketones Urine Blood Urine Nitrite Ur Leukocyte Esterase Urine RBC Urine WBC Ur Squamous Epith Cells Urine Bacteria Urine Yeast Urine Opiates Screen Ur Barbiturates Screen Ur Phencyclidine Scrn Ur Amphetamines Screen U Benzodiazepines Scrn Urine Cocaine Screen U Marijuana (THC) Screen Ethyl Alcohol COVID-19 (GIOVANI) Negative COVID-19 Clin Com See Note Blood Type Antibody Screen Crossmatch Discharge Plan Discharge Patient Disposition: Xfer SNF Referrals: [facility] [Outside] Nuvia Bagley, KWAME [Primary Care Provider] - 1 Week (Please call and schedule a follow up appointment within 1 week.) Discharge Medications: New amoxicillin-pot clavulanate [Augmentin] 875-125 mg tablet 1 tab PO BID Qty: 8 RF: 0 promethazine [Phenergan] 25 mg/mL solution 12.5 mg IM Q6H PRN (Reason: nausea and vomiting) Qty: 25 RF: 0 Continued potassium chloride 20 mEq tablet,ER particles/crystals 40 meq PO DAILY RF: 0 folic acid 1 mg tablet 1 mg PO DAILY RF: 0 Xifaxan 550 mg tablet 550 mg PO BID RF: 0 thiamine HCl (vitamin B1) 100 mg tablet 100 mg PO DAILY RF: 0 calcium carbonate [Antacid Ext Str (calcium carb)] 300 mg (750 mg) tablet,chew able 1 tab PO TID PRN (Reason: Heartburn) RF: 0 Flovent HFA 220 mcg/actuation HFA aerosol inhaler 2 puff inhalation BID RF: 0 albuterol sulfate 90 mcg/actuation HFA aerosol inhaler 2 puff inhalation Q4H PRN (Reason: Shortness Of Breath) RF: 0 baclofen 10 mg tablet 10 mg PO BID RF: 0 pyridoxine (vitamin B6) 50 mg tablet 50 mg PO DAILY RF: 0 lactulose 20 gram/30 mL Solution 30 g PO TID Qty: 240 RF: 0 Stiolto Respimat 2.5-2.5 mcg/actuation mist 2 puff inhalation DAILY RF: 0 buprenorphine 5 mcg/hour Patch Weekly 1 patch TRANSDERMAL QWEEK RF: 0 torsemide 20 mg tablet 40 mg PO DAILY RF: 0 cholecalciferol (vitamin D3) [Vitamin D3] 50 mcg (2,000 unit) Capsule 50 mcg PO DAILY RF: 0 spironolactone 25 mg tablet 25 mg PO DAILY RF: 0 omeprazole 20 mg capsule,delayed release(DR/EC) 20 mg PO BID@0630,1630 RF: 0 gabapentin 300 mg Capsule 300 mg PO TID RF: 0 magnesium oxide 400 mg magnesium Tablet 400 mg PO BID RF: 0 docusate sodium 100 mg Capsule 100 mg PO BID PRN (Reason: Constipation) RF: 0 risperidone 1 mg tablet 1 mg PO BID RF: 0 Held cetirizine 10 mg tablet 10 mg PO DAILY RF: 0 Hold Instructions: Resume on 05/04/20. Discontinued metformin 750 mg tablet extended release 24 hr 750 mg PO DAILY@1700 RF: 0 acetaminophen 500 mg Tablet 500 mg PO Q6H PRN (Reason: Pain (Scale Score 1-3)) RF: 0 Discharge Orders: Discharge Order (Routine); Ordered 04/26/20 Ordered By: Landry Buenrostro Diet: advance to usual diet and diabetic diet Activity on Discharge: As tolerated Stand Alone Forms: Patient Portal Discharge page Care Plan Goals: Hepatic encephalopathy bryan: To avoid liver disease related confusion you need to take your lactulose and rifaximin. Electrolytes abnormalities: In need to continue taking your by mouth electrolytes and monitor renal function and electrolytes out patiently closely. Anemia: Probably related to liver disease. Monitor blood counts out patiently and further workup with PCP out patiently. Abdominal air concern: Seems benign as per surgery, please complete antibiotic course. For please monitor CBC, BMP, LFTs, PT INR in next 2 days in rehab and further management outpatient as per rehab. Patient needs to follow-up with the her stomach Dr. Beckford in [facility]. Health Concerns: As above. Plan of Treatment: as above.
[2020-04-26] MEDS: Amoxicillin/Potassium Clav 875 MG TABLET PO (11:14)
[2020-04-26] MEDS: Promethazine HCL 25 MG TABLET PO (11:14)
[2020-04-26 15:26] LABS: IgA 715 mg/dL (47-310); IgG 1426 mg/dL (600-1640); IgM 118 mg/dL (50-300)
== END 2020-04-26 14:31 | disposition skilled nursing facility (03) | DRG 433 ==
LOC: HO.ED 14:49 → HO.IMC 18:40
PROVIDERS: Internal Medicine Medical Oncology; Nurse Practitioner Acute Care; Admitting Provider Family Medicine; Emergency Provider Emergency Medicine; PCP Nurse Practitioner; Visit Provider Internal Medicine
DX: K70.30 Alcoholic cirrhosis of liver without ascites (principal); E87.1 Hypo-osmolality and hyponatremia; F11.20 Opioid dependence, uncomplicated; K72.90 Hepatic failure, unspecified without coma; G89.29 Other chronic pain; D63.8 Anemia in other chronic diseases classified elsewhere; F39 Unspecified mood [affective] disorder; D69.6 Thrombocytopenia, unspecified; E11.9 Type 2 diabetes mellitus without complications; F17.210 Nicotine dependence, cigarettes, uncomplicated; Z71.6 Tobacco abuse counseling; Z20.822 Contact with and (suspected) exposure to COVID-19; Z88.2 Allergy status to sulfonamides; Z79.899 Other long term (current) drug therapy
CPT/HCPCS: 36415; 70450; 71045; 74019; 74176; 76705; 80048; 80053; 80076; 80307; 80320; 81001; 82140; 82607; 82728; 82746; 82784; 82803; 82947; 83010; 83036; 83540; 83605; 83615; 83690; 83735; 85014; 85018; 85025; 85045; 85610; 85730; 86334; 86850; 86900; 86923; 87040; 87635; 94640; 96365; 96374; 96375; 97162; 99282; 99284; 99285; 99291; J2270; J2405; J2543; J3430; J3475; P9016; P9047

== ENCOUNTER 2020-05-02 13:27 | Inpatient (IN) | payer OTHER, SELFPAY ==
[2020-05-02] VITALS (7 sets, daily range): BP systolic 102–160; BP diastolic 47–61; PULSE 82–93; RESP 16–24; TEMP 36.4–36.9; O2SAT 97–100; BMI 32.5
--- NOTE | ~2020-05-02 | XR_ITS ---
EXAMINATION: XR CHEST CLINICAL INFORMATION: Line placement COMPARISON: 04/17/2020 TECHNIQUE: Frontal view of the chest was obtained. FINDINGS: Endotracheal tube extends into the right mainstem bronchus. Right internal jugular central venous catheter terminates over the right atrium. Enteric tube extends into the proximal stomach with the side-port over the distal esophagus. Lung volumes are low. Patchy opacities are seen in a perihilar distribution. No pleural effusion or pneumothorax. The cardiomediastinal silhouette is unchanged. Radiopaque material in the left upper quadrant of the abdomen. XR/XR chest 1V IMPRESSION: 1. Endotracheal tube extending into the right mainstem bronchus. Recommend retraction. 2. Right internal jugular central venous catheter overlies the right atrium. This is approximately 3 cm beyond the cavoatrial junction. Consider repositioning. 3. Enteric tube side-port overlies the distal esophagus. Suggest advancement. 4. Bilateral perihilar opacities. This could be associated with fluid overload. This critical result was discussed with MARYLU Menendez by telephone at 05/11/2020 2:11 AM and it was ascertained that the content and urgency of the report was understood at the time of direct communication.
--- NOTE | ~2020-05-02 | CT_ITS ---
EXAMINATION: CT ABDOMEN AND PELVIS WITHOUT CONTRAST CLINICAL INFORMATION: Abdominal pain, vomiting COMPARISON: CT abdomen and pelvis noncontrast 04/18/2020 TECHNIQUE: Multidetector volumetric imaging was performed from the superior aspect of the liver through the pubic symphysis. Sagittal and coronal reformatted images were obtained on the technologist's workstation. This CT examination was performed using dose optimization techniques as appropriate, variously including the following: *Automated exposure control *Adjustment of mA and/or kV according to patient size (this includes techniques or standardized protocols for targeted exams where dose is matched to indication/reason for exam; i.e. extremities or head) *Use of iterative reconstruction technique DLP: 668 mGy-cm FINDINGS: LUNG BASES: There are a few new small scattered pulmonary opacities right base and increased accentuated reticular markings right anterior base representing subtle change from prior exam. No effusion. Heart size normal. No pericardial effusion. LIVER, GALLBLADDER, AND BILIARY TREE: Shrunken nodular cirrhotic liver with tips shunt present. Prior cholecystectomy. No ductal dilatation. PANCREAS: Unremarkable. SPLEEN: Unremarkable. ADRENAL GLANDS: Unremarkable. KIDNEYS AND URETERS: The kidneys are normal in size, shape, and attenuation. No hydronephrosis, hydroureter, or calculi seen. No perinephric stranding. BLADDER: Unremarkable. GASTROINTESTINAL TRACT: There is no bowel obstruction or focal inflammatory changes. No pneumatosis or free air. There is moderate stool right and transverse colon. No rectal fecal impaction. There is no small bowel dilatation or appreciable wall thickening. The appendix is not seen with certainty, not visible on either prior exam as well. Again, there is mild to moderate ascites, similar in upper abdomen and slightly increased in central pelvis. There is no loculated fluid collection. ABDOMINAL WALL: No significant hernia is appreciated. LYMPH NODES: No lymphadenopathy. VASCULAR: TIPS shunt. Tortuous splenic vessels versus varices left upper quadrant. PELVIC VISCERA: Unremarkable. OSSEOUS STRUCTURES: No acute bony abnormality. CT/CT abdomen pelvis wo con IMPRESSION: 1. Cirrhosis, TIPS shunt. Ascites, similar in abdomen and slightly increased pelvis. 2. No bowel obstruction or focal inflammatory changes. No pneumatosis or free air. 3. Mild scattered new small opacities right lung base. This could be related to infectious process or aspiration.
--- NOTE | 2020-05-02 13:38 | ED.RECABL ---
HPI - Recheck/Abnormal Lab/Rx General Chief Complaint: Nausea/Vomiting/Diarrhea Stated Complaint: ABNORMAL LABS Time Seen by Provider: 05/02/20 13:30 Source: patient and EMS Mode of arrival: EMS Limitations: no limitations History of Present Illness HPI narrative: 55 y/o female with history of alcoholic cirrhosis, s/p TIPS in the past, hx recurrent hepatic encephalopathy, chronic hyponatremia, COPD, substance abuse & anemia who presents to the ED with abnormal blood work. She states her doctor called her and told her to go to the ER for low potassium and elevated white blood cell count. She thinks there was another abnormality but she cannot recall. She states she has been lightheaded and dizzy with movement and when she stands up. She has also been having RUQ abdominal pain for the last 4 days. She has had 2 episodes of bilious vomiting the last few days last episode yesterday. She also reports bloody bowel movements which she reports having a history of. She was recently admitted here from 04/18 - 04/26 for hepatic encephalopathy, question of intraperitoneal air on CT scan, anemia requiring RBC transfusion. She was discharged to a rehab facility and was recently discharged home. She reports compliance with her lactulose, had multiple BM's yesterday, none today. She reports they were loose with bright red blood. No melena. She denies heroin use. She admits to not adhering to her fluid restriction 2 days ago but did yesterday. complaint: abnormal lab Initial visit (ago): day(s) Returns today for: called because of abnormal lab/test Symptoms since prior visit: worsening pain Related Data Home Medications Medication Instructions Recorded Confirmed Xifaxan 550 mg PO BID 01/20/20 04/18/20 folic acid 1 mg PO DAILY 01/20/20 04/18/20 potassium chloride 40 meq PO DAILY 01/20/20 04/18/20 Flovent HFA 2 puff INHALATION BID 02/09/20 04/18/20 albuterol sulfate 2 puff INHALATION Q4H PRN 02/09/20 04/18/20 calcium carbonate [Antacid Ext Str 1 tab PO TID PRN 02/09/20 04/18/20 (calcium carb)] thiamine HCl (vitamin B1) 100 mg PO DAILY 02/09/20 04/18/20 baclofen 10 mg PO BID 02/13/20 04/18/20 cetirizine 10 mg PO DAILY 02/19/20 04/18/20 pyridoxine (vitamin B6) 50 mg PO DAILY 02/19/20 04/18/20 Stiolto Respimat 2 puff INHALATION DAILY 02/26/20 04/18/20 buprenorphine 1 patch TRANSDERMAL QWEEK 04/18/20 04/18/20 cholecalciferol (vitamin D3) 50 mcg PO DAILY 04/18/20 04/18/20 [Vitamin D3] docusate sodium 100 mg PO BID PRN 04/18/20 04/18/20 gabapentin 300 mg PO TID 04/18/20 04/18/20 magnesium oxide 400 mg PO BID 04/18/20 04/18/20 omeprazole 20 mg PO BID@0630,1630 04/18/20 04/18/20 risperidone 1 mg PO BID 04/18/20 04/18/20 spironolactone 25 mg PO DAILY 04/18/20 04/18/20 torsemide 40 mg PO DAILY 04/18/20 04/18/20 Previous Rx's Medication Instructions Recorded lactulose 30 g PO TID #240 ml 02/23/20 amoxicillin-pot clavulanate 1 tab PO BID #8 tab 04/26/20 [Augmentin] promethazine [Phenergan] 12.5 mg IM Q6H PRN #25 ml 04/26/20 Allergies Allergy/AdvReac Type Severity Reaction Status Date / Time Iodinated Contrast Media Allergy Severe ANAPHYLAXIS Verified 04/18/20 00:44 [CONTRAST, IV] amoxicillin [AMOXICILLIN] Allergy Intermediate NAUSEA & Verified 04/18/20 00:44 VOMITING lamotrigine [From LAMICTAL] Allergy Intermediate RASH Verified 04/18/20 00:44 Sulfa (Sulfonamide Allergy Intermediate Rash Verified 04/18/20 00:44 Antibiotics) [SULFA (SULFONAMIDE ANTIBIOTICS)] sulfamethoxazole Allergy Intermediate Rash Verified 04/18/20 00:44 [From BACTRIM] trimethoprim [From BACTRIM] Allergy Intermediate Rash Verified 04/18/20 00:44 Review of Systems Review of Systems: Constitutional: No Fever, No Chills ENT/Mouth: No sore throat, No Rhinorrhea, No Swallowing Difficulty Cardiovascular: No Chest Pain, No SOB, No Orthopnea, No Edema Respiratory: No Cough, No Sputum, No Wheezing, No dyspnea Gastrointestinal: + Nausea, + Vomiting, No Diarrhea, + abdominal Pain Genitourinary: No Dysuria, No Urinary Frequency, No Hematuria Musculoskeletal: No joint pain, No Myalgias Skin: No Skin Lesions, No rash Neuro: No Weakness, No Numbness, No Dizziness, No Headache Psych: No Anxiety/Panic, No Depression Heme/Lymph: + Bruising, No Lymphadenopathy Endocrine: No Polyuria, No Polydipsia PMFSH Past Medical History Attestation statement: The following information was validated with the patient. Medical History Abnormal CT scan, gastrointestinal tract Anemia Anxiety Chronic back pain Chronic hyponatremia Cirrhosis Coagulopathy Congestive heart failure COPD (chronic obstructive pulmonary disease) Depression Diabetes 1.5, managed as type 2 Hyponatremia Liver disease Pneumonia PTSD (post-traumatic stress disorder) Thrombocytopenia Surgical History History of cholecystectomy Previous back surgery S/P TIPS (transjugular intrahepatic portosystemic shunt) Family History Family History Other HTN (hypertension) Social History Social History Household Members: Significant Other Housing: House Alcohol intake: former Smoking Status: Former smoker Tobacco Type: Cigarette Packs Per Day: 0.5 Years Smoked: 40 Second Hand Smoke Exposure: No Substance Use Type: Heroin and Marijuana Advance Directives: No Advance Directives Information Provided: No service: No Current occupational status: unemployed Physical Exam Vital Signs: Vital Signs: Last Vital Signs Pulse 82 05/02/20 13:40 Resp 20 05/02/20 13:40 BP 134/47 L 05/02/20 13:40 Pulse Ox 99 05/02/20 13:40 Body Mass Index 32.5 Appearance: Alert. Oriented X3. Jaundiced. Eyes: Pupils equal, round and reactive to light. Yellow sclera. ENT: Pharynx normal. Neck: Normal inspection. Neck supple. CVS: Normal heart rate and rhythm. Pulses normal. Respiratory: No respiratory distress. Breath sounds normal. Abdomen: Softly distended with RUQ tenderness, +rebound. +BS x4 Skin: Skin warm and dry. Skin color is yellow. Normal skin turgor. No rashes. Extremities: No lower extremity edema. Neuro: Oriented X 3. No motor deficit. No sensory deficit. Course Course Course Narrative: 55 y/o female with history of alcoholic cirrhosis s/p TIPS presenting with abnormal blood work & abd pain, N/V and BRBPR. She is AAO and hemodynamically stable on arrival. Working on getting [facility] records and will repeat all blood work here. She has abdominal tenderness. Last CT scan showed question of free air. No intervention was recommended by Surgery. Given her pain will get repeat CT scan. Reevaluation(s) Reevaluation #1: Sodium is 122 from 144 on 04/25. She is thirsty and asking for water. She appears dry on exam with hx recent vomiting. Will give 50cc NS and repeat sodium. She has a history of chronic hyponatremia but she is usually lives low 130's. She is also on spironolactone, torsemide & risperidone. Her hyponatremia is likely multifactorial. Will consult Nephrology and plan for admission. Reevaluation #2: CT scan showed no acute findings to explain patient's abdominal pain. LFTs are better than prior. She is s/p cholecystectomy and CT scan did now show any ductal dilatation. Will give dose of Rocephin for possible SBP/SBP prophylaxis given she reports GI Bleeding. Declining rectal exam at this time. Will heme check stools and give dose of lactulose now, no BM yet today. Ammonia is elevated but not encephalopathic. She is not septic at this time. Hospitalist paged for admission at 5pm. Spoke with Chantel Dye PA-C who will admit the patient. Repeat sodium ordered for now. Consultations Consultation #1: Nephrology - spoke with Dr. Coppola at 4 pm - recommends fluid restriction and starting salt tabs. MDM - Recheck/Abnormal Lab/Rx Lab Data Result diagrams: 05/02/20 14:24 05/02/20 14:25 Labs: Lab Results 05/02/20 05/02/20 05/02/20 Range/Units 14:24 14:25 14:25 WBC 10.4 (4.8-10.8) X10*3/uL RBC 2.46 L D (4.20-5.50) X10*6/uL Hgb 8.6 L (12.0-16.0) g/dl Hct 25.6 L (37-47) % MCV 104.1 H (80-98) fL MCH 35.0 H (27.0-33.0) pg MCHC 33.6 (31.0-35.0) g/dl RDW 21.4 H (11.0-16.0) % Plt Count 68 L (160-400) X10*3/uL MPV 11.1 (9.4-12.3) fL Immature Gran % (Auto) 2.3 H (0.0-0.4) % Neut % (Auto) 79.2 H (45-73) % Lymph % (Auto) 8.1 L (20-40) % [place] % (Auto) 9.3 (2-11) % Eos % (Auto) 0.8 (0-4) % Baso % (Auto) 0.3 (0-2) % Lymph # (Auto) 0.9 L (1.2-4.9) X10*3/uL [place] # (Auto) 1.0 (0.1-1.2) X10*3/uL Eos # (Auto) 0.1 (0.0-0.4) X10*3/uL Baso # (Auto) 0.0 (0.0-0.2) X10*3/uL Abs Immat Gran (auto) 0.24 H (0.00-0.03) X10*3/uL Absolute Neuts (auto) 8.3 (2.0-8.3) X10*3/uL Absolute Nucleated RBC 0.000 (0.0-0.012) X10*3/uL Nucleated RBC % (auto) 0.0 (0.0-0.2) /100WBC PT 26.4 H (10.8-13.0) SEC INR 2.2 H (0.9-1.1) APTT 55.9 H (24.1-38.0) SEC Sodium 122 L (135-145) mmol/L Potassium 4.6 D (3.3-5.1) mmol/L Chloride 90 L (96-108) mmol/L Carbon Dioxide 28 (22-29) mmol/L Anion Gap 9 L (12-20) BUN 13 D (9-16) mg/dL Creatinine 0.80 (0.5-1.4) mg/dL Estim Creat Clear Calc 76.8 Estimated GFR > 60 Random Glucose 106 (60-115) mg/dL Osmolality (281-305) mosm/kg Lactic Acid (0.5-2.0) mmol/L Calcium 7.9 L (8.4-10.2) mg/dL Magnesium 1.7 (1.6-2.6) mg/dL Total Bilirubin 10.0 H (0.0-1.0) mg/dL Direct Bilirubin 5.5 H (0.0-0.5) mg/dL AST 69 H (5-31) U/L ALT 27 (0-31) U/L Alkaline Phosphatase 161 H (39-117) U/L Ammonia (13-55) umol/L B-Natriuretic Peptide (<100) pg/mL Total Protein 5.7 L (6.5-8.0) g/dL Albumin 2.1 L (3.5-5.0) g/dL Urine Color Urine Appearance Urine pH (5.0-8.0) Ur Specific [place] (1.005-1.025) Urine Protein (NEG-TRACE) MG/DL Urine Glucose (UA) (NEG) MG/DL Urine Ketones (NEG) MG/DL Urine Blood (NEG) Urine Nitrite (NEG) Ur Leukocyte Esterase (NEG) Urine Osmolality (373-1093) mosm/kg Ur Random Sodium mmol/L Urine Opiates Screen (Not Detect) Ur Barbiturates Screen (Not Detect) Ur Phencyclidine Scrn (Not Detect) Ur Amphetamines Screen (Not Detect) U Benzodiazepines Scrn (Not Detect) Urine Cocaine Screen (Not Detect) U Marijuana (THC) Screen (Not Detect) Ethyl Alcohol mg/dL 05/02/20 05/02/20 05/02/20 Range/Units 14:25 14:25 14:25 WBC (4.8-10.8) X10*3/uL RBC (4.20-5.50) X10*6/uL Hgb (12.0-16.0) g/dl Hct (37-47) % MCV (80-98) fL MCH (27.0-33.0) pg MCHC (31.0-35.0) g/dl RDW (11.0-16.0) % Plt Count (160-400) X10*3/uL MPV (9.4-12.3) fL Immature Gran % (Auto) (0.0-0.4) % Neut % (Auto) (45-73) % Lymph % (Auto) (20-40) % [place] % (Auto) (2-11) % Eos % (Auto) (0-4) % Baso % (Auto) (0-2) % Lymph # (Auto) (1.2-4.9) X10*3/uL [place] # (Auto) (0.1-1.2) X10*3/uL Eos # (Auto) (0.0-0.4) X10*3/uL Baso # (Auto) (0.0-0.2) X10*3/uL Abs Immat Gran (auto) (0.00-0.03) X10*3/uL Absolute Neuts (auto) (2.0-8.3) X10*3/uL Absolute Nucleated RBC (0.0-0.012) X10*3/uL Nucleated RBC % (auto) (0.0-0.2) /100WBC PT (10.8-13.0) SEC INR (0.9-1.1) APTT (24.1-38.0) SEC Sodium (135-145) mmol/L Potassium (3.3-5.1) mmol/L Chloride (96-108) mmol/L Carbon Dioxide (22-29) mmol/L Anion Gap (12-20) BUN (9-16) mg/dL Creatinine (0.5-1.4) mg/dL Estim Creat Clear Calc Estimated GFR Random Glucose (60-115) mg/dL Osmolality 265 L (281-305) mosm/kg Lactic Acid 0.9 (0.5-2.0) mmol/L Calcium (8.4-10.2) mg/dL Magnesium (1.6-2.6) mg/dL Total Bilirubin (0.0-1.0) mg/dL Direct Bilirubin (0.0-0.5) mg/dL AST (5-31) U/L ALT (0-31) U/L Alkaline Phosphatase (39-117) U/L Ammonia 72 H (13-55) umol/L B-Natriuretic Peptide (<100) pg/mL Total Protein (6.5-8.0) g/dL Albumin (3.5-5.0) g/dL Urine Color Urine Appearance Urine pH (5.0-8.0) Ur Specific [place] (1.005-1.025) Urine Protein (NEG-TRACE) MG/DL Urine Glucose (UA) (NEG) MG/DL Urine Ketones (NEG) MG/DL Urine Blood (NEG) Urine Nitrite (NEG) Ur Leukocyte Esterase (NEG) Urine Osmolality (373-1093) mosm/kg Ur Random Sodium mmol/L Urine Opiates Screen (Not Detect) Ur Barbiturates Screen (Not Detect) Ur Phencyclidine Scrn (Not Detect) Ur Amphetamines Screen (Not Detect) U Benzodiazepines Scrn (Not Detect) Urine Cocaine Screen (Not Detect) U Marijuana (THC) Screen (Not Detect) Ethyl Alcohol mg/dL 05/02/20 05/02/20 05/02/20 Range/Units 14:25 14:25 16:00 WBC (4.8-10.8) X10*3/uL RBC (4.20-5.50) X10*6/uL Hgb (12.0-16.0) g/dl Hct (37-47) % MCV (80-98) fL MCH (27.0-33.0) pg MCHC (31.0-35.0) g/dl RDW (11.0-16.0) % Plt Count (160-400) X10*3/uL MPV (9.4-12.3) fL Immature Gran % (Auto) (0.0-0.4) % Neut % (Auto) (45-73) % Lymph % (Auto) (20-40) % [place] % (Auto) (2-11) % Eos % (Auto) (0-4) % Baso % (Auto) (0-2) % Lymph # (Auto) (1.2-4.9) X10*3/uL [place] # (Auto) (0.1-1.2) X10*3/uL Eos # (Auto) (0.0-0.4) X10*3/uL Baso # (Auto) (0.0-0.2) X10*3/uL Abs Immat Gran (auto) (0.00-0.03) X10*3/uL Absolute Neuts (auto) (2.0-8.3) X10*3/uL Absolute Nucleated RBC (0.0-0.012) X10*3/uL Nucleated RBC % (auto) (0.0-0.2) /100WBC PT (10.8-13.0) SEC INR (0.9-1.1) APTT (24.1-38.0) SEC Sodium (135-145) mmol/L Potassium (3.3-5.1) mmol/L Chloride (96-108) mmol/L Carbon Dioxide (22-29) mmol/L Anion Gap (12-20) BUN (9-16) mg/dL Creatinine (0.5-1.4) mg/dL Estim Creat Clear Calc Estimated GFR Random Glucose (60-115) mg/dL Osmolality (281-305) mosm/kg Lactic Acid (0.5-2.0) mmol/L Calcium (8.4-10.2) mg/dL Magnesium (1.6-2.6) mg/dL Total Bilirubin (0.0-1.0) mg/dL Direct Bilirubin (0.0-0.5) mg/dL AST (5-31) U/L ALT (0-31) U/L Alkaline Phosphatase (39-117) U/L Ammonia (13-55) umol/L B-Natriuretic Peptide 68 (<100) pg/mL Total Protein (6.5-8.0) g/dL Albumin (3.5-5.0) g/dL Urine Color YELLOW Urine Appearance CLEAR Urine pH 7.5 (5.0-8.0) Ur Specific [place] 1.010 (1.005-1.025) Urine Protein NEG (NEG-TRACE) MG/DL Urine Glucose (UA) NEG (NEG) MG/DL Urine Ketones NEG (NEG) MG/DL Urine Blood NEG (NEG) Urine Nitrite NEG (NEG) Ur Leukocyte Esterase NEG (NEG) Urine Osmolality (373-1093) mosm/kg Ur Random Sodium mmol/L Urine Opiates Screen (Not Detect) Ur Barbiturates Screen (Not Detect) Ur Phencyclidine Scrn (Not Detect) Ur Amphetamines Screen (Not Detect) U Benzodiazepines Scrn (Not Detect) Urine Cocaine Screen (Not Detect) U Marijuana (THC) Screen (Not Detect) Ethyl Alcohol < 10 mg/dL 05/02/20 05/02/20 05/02/20 Range/Units 16:00 16:00 16:00 WBC (4.8-10.8) X10*3/uL RBC (4.20-5.50) X10*6/uL Hgb (12.0-16.0) g/dl Hct (37-47) % MCV (80-98) fL MCH (27.0-33.0) pg MCHC (31.0-35.0) g/dl RDW (11.0-16.0) % Plt Count (160-400) X10*3/uL MPV (9.4-12.3) fL Immature Gran % (Auto) (0.0-0.4) % Neut % (Auto) (45-73) % Lymph % (Auto) (20-40) % [place] % (Auto) (2-11) % Eos % (Auto) (0-4) % Baso % (Auto) (0-2) % Lymph # (Auto) (1.2-4.9) X10*3/uL [place] # (Auto) (0.1-1.2) X10*3/uL Eos # (Auto) (0.0-0.4) X10*3/uL Baso # (Auto) (0.0-0.2) X10*3/uL Abs Immat Gran (auto) (0.00-0.03) X10*3/uL Absolute Neuts (auto) (2.0-8.3) X10*3/uL Absolute Nucleated RBC (0.0-0.012) X10*3/uL Nucleated RBC % (auto) (0.0-0.2) /100WBC PT (10.8-13.0) SEC INR (0.9-1.1) APTT (24.1-38.0) SEC Sodium (135-145) mmol/L Potassium (3.3-5.1) mmol/L Chloride (96-108) mmol/L Carbon Dioxide (22-29) mmol/L Anion Gap (12-20) BUN (9-16) mg/dL Creatinine (0.5-1.4) mg/dL Estim Creat Clear Calc Estimated GFR Random Glucose (60-115) mg/dL Osmolality (281-305) mosm/kg Lactic Acid (0.5-2.0) mmol/L Calcium (8.4-10.2) mg/dL Magnesium (1.6-2.6) mg/dL Total Bilirubin (0.0-1.0) mg/dL Direct Bilirubin (0.0-0.5) mg/dL AST (5-31) U/L ALT (0-31) U/L Alkaline Phosphatase (39-117) U/L Ammonia (13-55) umol/L B-Natriuretic Peptide (<100) pg/mL Total Protein (6.5-8.0) g/dL Albumin (3.5-5.0) g/dL Urine Color Urine Appearance Urine pH (5.0-8.0) Ur Specific [place] (1.005-1.025) Urine Protein (NEG-TRACE) MG/DL Urine Glucose (UA) (NEG) MG/DL Urine Ketones (NEG) MG/DL Urine Blood (NEG) Urine Nitrite (NEG) Ur Leukocyte Esterase (NEG) Urine Osmolality 178 L (373-1093) mosm/kg Ur Random Sodium < 20.0 mmol/L Urine Opiates Screen Not Detected (Not Detect) Ur Barbiturates Screen Not Detected (Not Detect) Ur Phencyclidine Scrn Not Detected (Not Detect) Ur Amphetamines Screen Not Detected (Not Detect) U Benzodiazepines Scrn Not Detected (Not Detect) Urine Cocaine Screen Not Detected (Not Detect) U Marijuana (THC) Screen Not Detected (Not Detect) Ethyl Alcohol mg/dL Critical Care Time Critical Care Time Critical Care Time: Yes Total Critical Care Time: 40 Attestation: I attest to critical care time spent caring for this patient with moderate symptomatic hyponatremia, acute blood loss anemia. Time spent frequently re-evaluating the patient, reviewing old records, and coordinating care. Discharge Plan Discharge Clinical Impression: Acute hyponatremia, Acute lower gastrointestinal bleeding Chronic liver failure Qualifiers: Hepatic coma status: without hepatic coma Qualified Code(s): K72.10 - Chronic hepatic failure without coma Patient Disposition: Admitted As Inpatient
[2020-05-02 14:31] LABS: MANUAL DIFF FLAG NO
[2020-05-02 14:35] LABS: Basophils Percent Auto 0.3 % (0-2); Eosinophils Absolute Auto 0.1 X10*3/uL (0.0-0.4); Eosinophils Percent Auto 0.8 % (0-4); Hematocrit 25.6 % (37-47); Hemoglobin 8.6 g/dl (12.0-16.0); Imm Gran Abs Auto 0.24 X10*3/uL (0.00-0.03); Imm Gran Pct Auto 2.3 % (0.0-0.4); Lymphocytes Absolute Auto 0.9 X10*3/uL (1.2-4.9); Lymphocytes Percent Auto 8.1 % (20-40); Mean Corpuscular HGB Conc 33.6 g/dl (31.0-35.0); Mean Corpuscular Volume 104.1 fL (80-98); Mean Platelet Volume 11.1 fL (9.4-12.3); Monocytes Percent Auto 9.3 % (2-11); Neutrophils Absolute Auto 8.3 X10*3/uL (2.0-8.3); Neutrophils Percent Auto 79.2 % (45-73); Red Blood Count 2.46 X10*6/uL (4.20-5.50); Red Cell Distribution Width 21.4 % (11.0-16.0); White Blood Count 10.4 X10*3/uL (4.8-10.8)
[2020-05-02 14:36] LABS: Platelet Count 68 X10*3/uL (160-400)
[2020-05-02 14:39] LABS: INTERNATIONAL NORM RATIO 2.2 (0.9-1.1); Prothrombin Time 26.4 SEC (10.8-13.0)
[2020-05-02 14:42] LABS: Partial Thromboplastin Time 55.9 SEC (24.1-38.0)
[2020-05-02 14:50] LABS: Ammonia 72 umol/L (13-55)
[2020-05-02 14:53] LABS: Lactic Acid 0.9 mmol/L (0.5-2.0)
[2020-05-02 14:54] LABS: Osmolality, Serum 265 mosm/kg (281-305)
[2020-05-02 14:55] LABS: Ethanol < 10 mg/dL
[2020-05-02 15:04] LABS: Alanine Aminotransferase 27 U/L (0-31); Albumin Level 2.1 g/dL (3.5-5.0); Alkaline Phosphatase 161 U/L (39-117); Aspartate Amino Transferase 69 U/L (5-31); B Type Natriuretic Peptide 68 pg/mL (<100); Bilirubin Direct 5.5 mg/dL (0.0-0.5); Blood Urea Nitrogen 13 mg/dL (9-16); Calcium 7.9 mg/dL (8.4-10.2); Creatinine Clr Calc Pharmacy 76.8; Estimated Glomerular Filt Rate > 60; Glucose Random 106 mg/dL (60-115); Magnesium 1.7 mg/dL (1.6-2.6); Total Protein 5.7 g/dL (6.5-8.0)
[2020-05-02 15:12] LABS: Anion Gap 9 (12-20); Carbon Dioxide 28 mmol/L (22-29); Chloride 90 mmol/L (96-108); Potassium 4.6 mmol/L (3.3-5.1); Sodium 122 mmol/L (135-145)
[2020-05-02 16:09] LABS: Glucose Urine UA NEG (NEG); Leukocyte Esterase Urine NEG (NEG); Nitrite Urine NEG (NEG); PH 7.5 (5.0-8.0); Urine Blood NEG (NEG); Urine Ketones NEG (NEG); Urine Protein NEG (NEG-TRACE)
[2020-05-02 16:10] LABS: Appearance Urine CLEAR; Color Urine YELLOW
[2020-05-02] MEDS: 0.9 % Sodium Chloride 500 ML IV (16:21)
[2020-05-02 16:29] LABS: Amphetamine Screen Urine Not Detected (Not Detect); Barbiturates, Urine Not Detected (Not Detect); Benzodiazepines Screen Urine Not Detected (Not Detect); Cannabinoid Screen Urine Not Detected (Not Detect); Cocaine Screen Urine Not Detected (Not Detect); Opiate Screen Urine Not Detected (Not Detect); Phencyclidine Screen Urine Not Detected (Not Detect)
[2020-05-02 16:31] LABS: Sodium Urine Random < 20.0 mmol/L
[2020-05-02 16:35] LABS: Osmolality Urine 178 mosm/kg (373-1093)
[2020-05-02] MEDS: Lactulose 20 GM/30 ML SOLUTION PO (17:25)
[2020-05-02] MEDS: cefTRIAXone sodium 1 GM in 0.9 % Sodium Chloride 50 ML IV (17:25)
--- NOTE | 2020-05-02 18:22 | PM.EVENT ---
Event Note Date of Service: 05/02/20 Event Note: Patient seen and examined independently and was present during queen portion of E/M service. Agree with midlevel's history, physical, assessment, and plan. 55F presented with abd, hpyonatremia, brbpr alcoholic cirrhosis with hyponatremia, BRBPR monitor closely, salt tablets, nephro eval monitor h and h, gi eval
[2020-05-02 18:35] LABS: Glucose, Whole Blood 103 mg/dL (60-115)
--- NOTE | 2020-05-02 19:00 | PM.IMHP ---
History of Present Illness Date of Service: 05/02/20 Chief Complaint: abnormal labs This is a 55-year-old female with history of alcoholic liver cirrhosis who was sent to the emergency department for abnormal labs. She was discharged from the hospital on April 26 and sent to short-term rehab. She returned home Saturday. She reports drinking 2 40 oz bottles of water on Saturday. She has had four days of nausea and vomiting but is better today from that standpoint. Two days ago she had 2 episodes of blood red blood per rectum. She denies any rectal bleeding yesterday. In the ED her labwork was significant for sodium of 122. The LFTs were at her baseline. H/H was near baseline at 8.6/25.6. She declined rectal exam. She was given a small bolus of normal saline. Nephrology recommended starting salt tablets and continuing fluid restriction. Review of Systems Review of Systems: Yes all other systems are reviewed and are negative Constitutional: Constitutional: Denies chills and Denies fever(s) Cardiovascular: Cardiovascular: Denies chest pain Respiratory: Respiratory: Denies cough Gastrointestinal: Gastrointestinal: Reports hematochezia, Reports nausea and Denies vomiting [facility] Medical History (Updated 05/02/20 @ 19:16 by MARYLU Aguilar) Abnormal CT scan, gastrointestinal tract Anemia Anxiety Chronic back pain Chronic hyponatremia Cirrhosis Coagulopathy Congestive heart failure COPD (chronic obstructive pulmonary disease) Depression Diabetes 1.5, managed as type 2 Hyponatremia Liver disease Pneumonia PTSD (post-traumatic stress disorder) Thrombocytopenia Functional capacity: independent ambulation Family History Other HTN (hypertension) Family history: reviewed and not pertinent Surgical History History of cholecystectomy Previous back surgery S/P TIPS (transjugular intrahepatic portosystemic shunt) Social History Household Members: Significant Other Housing: House Alcohol intake: former Smoking Status: Former smoker Tobacco Type: Cigarette Packs Per Day: 0.5 Years Smoked: 40 Second Hand Smoke Exposure: No Substance Use Type: Heroin and Marijuana Advance Directives: No Advance Directives Information Provided: No service: No Current occupational status: unemployed Meds Allergies Allergy/AdvReac Type Severity Reaction Status Date / Time Iodinated Contrast Media Allergy Severe ANAPHYLAXIS Verified 04/18/20 00:44 [CONTRAST, IV] amoxicillin [AMOXICILLIN] Allergy Intermediate NAUSEA & Verified 04/18/20 00:44 VOMITING lamotrigine [From LAMICTAL] Allergy Intermediate RASH Verified 04/18/20 00:44 Sulfa (Sulfonamide Allergy Intermediate Rash Verified 04/18/20 00:44 Antibiotics) [SULFA (SULFONAMIDE ANTIBIOTICS)] sulfamethoxazole Allergy Intermediate Rash Verified 04/18/20 00:44 [From BACTRIM] trimethoprim [From BACTRIM] Allergy Intermediate Rash Verified 04/18/20 00:44 Active Medications: Current Medications Generic Name Dose Route Start Last Admin Trade Name Freq PRN Reason Stop Dose Admin Sodium Chloride 1 gm 05/02/20 21:00 Sodium Chloride Tab 1 Gm Tablet PO TID [facility] Home Medications Medication Instructions Recorded Confirmed Last Taken Type Xifaxan 550 mg PO BID 01/20/20 05/02/20 02/18/20 History folic acid 1 mg PO DAILY 01/20/20 05/02/20 02/18/20 History potassium chloride 40 meq PO DAILY 01/20/20 05/02/20 02/18/20 History Flovent HFA 2 puff INHALATION BID 02/09/20 05/02/20 02/18/20 History albuterol sulfate 2 puff INHALATION Q4H PRN 02/09/20 05/02/20 02/18/20 History calcium carbonate [Antacid Ext Str 1 tab PO TID PRN 02/09/20 05/02/20 02/18/20 History (calcium carb)] thiamine HCl (vitamin B1) 100 mg PO DAILY 02/09/20 05/02/20 02/18/20 History baclofen 10 mg PO BID 02/13/20 05/02/20 02/18/20 History cetirizine 10 mg PO DAILY 02/19/20 05/02/20 02/18/20 History pyridoxine (vitamin B6) 50 mg PO DAILY 02/19/20 05/02/20 02/18/20 History Stiolto Respimat 2 puff INHALATION DAILY 02/26/20 05/02/20 Unknown History buprenorphine 1 patch TRANSDERMAL QWEEK 04/18/20 04/18/20 Unknown History cholecalciferol (vitamin D3) 50 mcg PO DAILY 04/18/20 05/02/20 Unknown History [Vitamin D3] docusate sodium 100 mg PO BID PRN 04/18/20 05/02/20 Unknown History gabapentin 300 mg PO TID 04/18/20 05/02/20 Unknown History magnesium oxide 400 mg PO BID 04/18/20 05/02/20 Unknown History omeprazole 20 mg PO BID@0630,1630 04/18/20 05/02/20 Unknown History risperidone 1 mg PO BID 04/18/20 05/02/20 Unknown History spironolactone 25 mg PO DAILY 04/18/20 05/02/20 Unknown History torsemide 40 mg PO DAILY 04/18/20 04/18/20 Unknown History Physical Exam Vital Signs and Narrative: Vital Signs: Last Vital Signs Temp 97.6 F 05/02/20 18:00 Pulse 87 05/02/20 18:00 Resp 18 05/02/20 18:00 BP 122/56 L 05/02/20 18:00 Pulse Ox 97 05/02/20 18:00 Body Mass Index 32.5 Const: General: comfortable, no acute distress, alert and awake Nutritional Appearance: well nourished Orientation/consciousness: patient oriented x3 HENMT: Head: Yes normocephalic and Yes atraumatic Eyes: Other: scleral icterus Chest: Chest palpation & inspection: normal inspection of the chest Resp: Effort & Inspection: normal respiratory effort, able to speak in complete sentences and no respiratory distress Cardio: Rate: regular rate Rhythm: regular rhythm GI: Other: mild tenderness upper abdomen Palpation (GI): Soft to palpation and nontender Skin: Other: bruising b/l upper extremities Neuro: General: patient oriented x3 Cranial nerves: Yes CN's II-XII intact bilaterally and Yes Bilaterally intact EOM present Extrem: General: Yes normal to inspection Results Labs CBC and Chem 7: 05/02/20 14:24 05/02/20 18:41 Labs: Laboratory Results - last 24 hr 05/02/20 05/02/20 05/02/20 14:24 14:25 14:25 MCV 104.1 H MCH 35.0 H MCHC 33.6 RDW 21.4 H Plt Count 68 L MPV 11.1 Immature Gran % (Auto) 2.3 H Neut % (Auto) 79.2 H Lymph % (Auto) 8.1 L [place] % (Auto) 9.3 Eos % (Auto) 0.8 Baso % (Auto) 0.3 Lymph # (Auto) 0.9 L [place] # (Auto) 1.0 Eos # (Auto) 0.1 Baso # (Auto) 0.0 Abs Immat Gran (auto) 0.24 H Absolute Neuts (auto) 8.3 Absolute Nucleated RBC 0.000 Nucleated RBC % (auto) 0.0 PT 26.4 H INR 2.2 H APTT 55.9 H Anion Gap 9 L Estim Creat Clear Calc 76.8 Estimated GFR > 60 POC Glucose Random Glucose 106 Osmolality Lactic Acid Calcium 7.9 L Magnesium 1.7 Total Bilirubin 10.0 H Direct Bilirubin 5.5 H AST 69 H ALT 27 Alkaline Phosphatase 161 H Ammonia B-Natriuretic Peptide Total Protein 5.7 L Albumin 2.1 L Urine Color Urine Appearance Urine pH Ur Specific [place] Urine Protein Urine Glucose (UA) Urine Ketones Urine Blood Urine Nitrite Ur Leukocyte Esterase Urine Osmolality Ur Random Sodium Urine Opiates Screen Ur Barbiturates Screen Ur Phencyclidine Scrn Ur Amphetamines Screen U Benzodiazepines Scrn Urine Cocaine Screen U Marijuana (THC) Screen Ethyl Alcohol Blood Type 05/02/20 05/02/20 05/02/20 14:25 14:25 14:25 MCV MCH MCHC RDW Plt Count MPV Immature Gran % (Auto) Neut % (Auto) Lymph % (Auto) [place] % (Auto) Eos % (Auto) Baso % (Auto) Lymph # (Auto) [place] # (Auto) Eos # (Auto) Baso # (Auto) Abs Immat Gran (auto) Absolute Neuts (auto) Absolute Nucleated RBC Nucleated RBC % (auto) PT INR APTT Anion Gap Estim Creat Clear Calc Estimated GFR POC Glucose Random Glucose Osmolality 265 L Lactic Acid 0.9 Calcium Magnesium Total Bilirubin Direct Bilirubin AST ALT Alkaline Phosphatase Ammonia 72 H B-Natriuretic Peptide Total Protein Albumin Urine Color Urine Appearance Urine pH Ur Specific [place] Urine Protein Urine Glucose (UA) Urine Ketones Urine Blood Urine Nitrite Ur Leukocyte Esterase Urine Osmolality Ur Random Sodium Urine Opiates Screen Ur Barbiturates Screen Ur Phencyclidine Scrn Ur Amphetamines Screen U Benzodiazepines Scrn Urine Cocaine Screen U Marijuana (THC) Screen Ethyl Alcohol Blood Type 05/02/20 05/02/20 05/02/20 14:25 14:25 16:00 MCV MCH MCHC RDW Plt Count MPV Immature Gran % (Auto) Neut % (Auto) Lymph % (Auto) [place] % (Auto) Eos % (Auto) Baso % (Auto) Lymph # (Auto) [place] # (Auto) Eos # (Auto) Baso # (Auto) Abs Immat Gran (auto) Absolute Neuts (auto) Absolute Nucleated RBC Nucleated RBC % (auto) PT INR APTT Anion Gap Estim Creat Clear Calc Estimated GFR POC Glucose Random Glucose Osmolality Lactic Acid Calcium Magnesium Total Bilirubin Direct Bilirubin AST ALT Alkaline Phosphatase Ammonia B-Natriuretic Peptide 68 Total Protein Albumin Urine Color YELLOW Urine Appearance CLEAR Urine pH 7.5 Ur Specific [place] 1.010 Urine Protein NEG Urine Glucose (UA) NEG Urine Ketones NEG Urine Blood NEG Urine Nitrite NEG Ur Leukocyte Esterase NEG Urine Osmolality Ur Random Sodium Urine Opiates Screen Ur Barbiturates Screen Ur Phencyclidine Scrn Ur Amphetamines Screen U Benzodiazepines Scrn Urine Cocaine Screen U Marijuana (THC) Screen Ethyl Alcohol < 10 Blood Type 05/02/20 05/02/20 05/02/20 16:00 16:00 16:00 MCV MCH MCHC RDW Plt Count MPV Immature Gran % (Auto) Neut % (Auto) Lymph % (Auto) [place] % (Auto) Eos % (Auto) Baso % (Auto) Lymph # (Auto) [place] # (Auto) Eos # (Auto) Baso # (Auto) Abs Immat Gran (auto) Absolute Neuts (auto) Absolute Nucleated RBC Nucleated RBC % (auto) PT INR APTT Anion Gap Estim Creat Clear Calc Estimated GFR POC Glucose Random Glucose Osmolality Lactic Acid Calcium Magnesium Total Bilirubin Direct Bilirubin AST ALT Alkaline Phosphatase Ammonia B-Natriuretic Peptide Total Protein Albumin Urine Color Urine Appearance Urine pH Ur Specific [place] Urine Protein Urine Glucose (UA) Urine Ketones Urine Blood Urine Nitrite Ur Leukocyte Esterase Urine Osmolality 178 L Ur Random Sodium < 20.0 Urine Opiates Screen Not Detected Ur Barbiturates Screen Not Detected Ur Phencyclidine Scrn Not Detected Ur Amphetamines Screen Not Detected U Benzodiazepines Scrn Not Detected Urine Cocaine Screen Not Detected U Marijuana (THC) Screen Not Detected Ethyl Alcohol Blood Type 05/02/20 05/02/20 18:32 18:40 MCV MCH MCHC RDW Plt Count MPV Immature Gran % (Auto) Neut % (Auto) Lymph % (Auto) [place] % (Auto) Eos % (Auto) Baso % (Auto) Lymph # (Auto) [place] # (Auto) Eos # (Auto) Baso # (Auto) Abs Immat Gran (auto) Absolute Neuts (auto) Absolute Nucleated RBC Nucleated RBC % (auto) PT INR APTT Anion Gap Estim Creat Clear Calc Estimated GFR POC Glucose 103 Random Glucose Osmolality Lactic Acid Calcium Magnesium Total Bilirubin Direct Bilirubin AST ALT Alkaline Phosphatase Ammonia B-Natriuretic Peptide Total Protein Albumin Urine Color Urine Appearance Urine pH Ur Specific [place] Urine Protein Urine Glucose (UA) Urine Ketones Urine Blood Urine Nitrite Ur Leukocyte Esterase Urine Osmolality Ur Random Sodium Urine Opiates Screen Ur Barbiturates Screen Ur Phencyclidine Scrn Ur Amphetamines Screen U Benzodiazepines Scrn Urine Cocaine Screen U Marijuana (THC) Screen Ethyl Alcohol Blood Type A Negative Imaging Radiologist's Impressions: Impressions Abdomen/Pelvis CT 05/02/20 14:58 IMPRESSION: 1. Cirrhosis, TIPS shunt. Ascites, similar in abdomen and slightly increased pelvis. 2. No bowel obstruction or focal inflammatory changes. No pneumatosis or free air. 3. Mild scattered new small opacities right lung base. This could be related to infectious process or aspiration. Assessment and Plan (1) Acute hyponatremia: Status: Acute (2) Advanced hepatic cirrhosis: Status: Acute 54yo F with decompensated EtOH cirrhosis s/p TIPS, DM2, COPD, chronic back pain, bipolar disorder, opioid abuse admitted for hepatic encephalopathy, question of intraperitoneal air hyponatremia, acute on chronic due to cirrhosis fluid restriction 1500 mL/d. nephrology rec salt tablets follow sodium levels closely nephrology consult GI bleeding declined LIZ, stool occult pending Clear liquid diet follow CBC, no indication for transfusion at this time GI consult liver cirrhosis with thrombocytopenia/anemia chronic. as baseline due to cirrhosis. avoid heparin. hold torsemide, spironolactone elevated ammonia ammonia 72. no encephalopathy continue lactulose, xifaxan chronic pain disorder - gabapentin, baclofen mood - continue risperidone hypoMg continue home replacement DM2 Metformin d/c on last admission last A1c only 4.1 follow POCs DVT ppx - mechanical devices Code - SCDs, avoid heparin
[2020-05-02 19:05] LABS: COVID-19 Test Negative (Negative)
[2020-05-02 19:29] LABS: Sodium 125 mmol/L (135-145)
[2020-05-02] MEDS: Sodium Chloride Tab 1 GM TABLET PO (20:30)
[2020-05-02] MEDS: Magnesium Oxide 400 MG TABLET PO (22:06)
[2020-05-02] MEDS: risperiDONE 1 MG TABLET PO (22:06)
[2020-05-02] MEDS: Lactulose 20 GM/30 ML SOLUTION 30 GM PO (22:07)
[2020-05-02] MEDS: Gabapentin 300 MG CAPSULE PO (22:07)
[2020-05-02] MEDS: Baclofen 10 MG TABLET PO (22:07)
[2020-05-02] MEDS: rifAXIMin 550 MG TABLET PO (22:07)
[2020-05-03] VITALS (10 sets, daily range): BP systolic 106–138; BP diastolic 49–61; PULSE 83–98; RESP 16–19; TEMP 36.4–37.2; O2SAT 96–100; BMI 32.5
[2020-05-03] MEDS: oxyCODONE HCl Immed Release 5 MG TABLET PO (00:32)
[2020-05-03] MEDS: 0.9 % Sodium Chloride Flush 3 ML SYRINGE IVFLUSH ×4 (00:32→21:22)
[2020-05-03 00:49] LABS: Anion Gap 11 (12-20); Blood Urea Nitrogen 11 mg/dL (9-16); Calcium 7.3 mg/dL (8.4-10.2); Carbon Dioxide 24 mmol/L (22-29); Chloride 94 mmol/L (96-108); Creatinine Clr Calc Pharmacy 93.2; Estimated Glomerular Filt Rate > 60; Glucose Random 135 mg/dL (60-115); Potassium 4.1 mmol/L (3.3-5.1); Sodium 125 mmol/L (135-145)
[2020-05-03] MEDS: Omeprazole 20 MG CAPSULE.DR PO ×2 (05:38→16:32)
[2020-05-03 06:10] LABS: Basophils Percent Auto 0.5 % (0-2); Mean Corpuscular HGB Conc 33.3 g/dl (31.0-35.0); Mean Corpuscular Hemoglobin 35.7 pg (27.0-33.0); PLT CLUMP 1; Red Cell Distribution Width 21.1 % (11.0-16.0); SCAN SMEAR FLAG 1
[2020-05-03 06:11] LABS: INTERNATIONAL NORM RATIO 2.4 (0.9-1.1); Prothrombin Time 28.8 SEC (10.8-13.0)
[2020-05-03 06:12] LABS: Eosinophils Absolute Auto 0.1 X10*3/uL (0.0-0.4); Eosinophils Percent Auto 1.2 % (0-4); Hematocrit 22.8 % (37-47); Hemoglobin 7.6 g/dl (12.0-16.0); Imm Gran Abs Auto 0.19 X10*3/uL (0.00-0.03); Imm Gran Pct Auto 2.3 % (0.0-0.4); Lymphocytes Absolute Auto 0.8 X10*3/uL (1.2-4.9); Mean Platelet Volume 11.3 fL (9.4-12.3); Monocytes Absolute Auto 0.8 X10*3/uL (0.1-1.2); Monocytes Percent Auto 9.7 % (2-11); Neutrophils Absolute Auto 6.3 X10*3/uL (2.0-8.3); Neutrophils Percent Auto 76.3 % (45-73); Red Blood Count 2.13 X10*6/uL (4.20-5.50); White Blood Count 8.3 X10*3/uL (4.8-10.8)
[2020-05-03 06:15] LABS: Platelet Count 66 X10*3/uL (160-400)
[2020-05-03 06:16] LABS: MANUAL DIFF FLAG NO
[2020-05-03 06:40] LABS: Alanine Aminotransferase 23 U/L (0-31); Albumin Level 1.8 g/dL (3.5-5.0); Alkaline Phosphatase 128 U/L (39-117); Anion Gap 11 (12-20); Aspartate Amino Transferase 69 U/L (5-31); Bilirubin Direct 4.8 mg/dL (0.0-0.5); Bilirubin Total 9.3 mg/dL (0.0-1.0); Blood Urea Nitrogen 10 mg/dL (9-16); Calcium 7.4 mg/dL (8.4-10.2); Carbon Dioxide 24 mmol/L (22-29); Chloride 93 mmol/L (96-108); Creatinine Clr Calc Pharmacy 89.1; Estimated Glomerular Filt Rate > 60; Glucose Random 198 mg/dL (60-115); Potassium 4.1 mmol/L (3.3-5.1); Sodium 124 mmol/L (135-145); Total Protein 5.1 g/dL (6.5-8.0)
[2020-05-03 07:43] LABS: Glucose, Whole Blood 103 mg/dL (60-115)
[2020-05-03] MEDS: Fluticasone Propionate 250 MCG BLST.W.DEV 2 PUFF INHALE ×2 (08:29→20:42)
[2020-05-03] MEDS: Cholecalciferol (Vitamin D3) 25 MCG TABLET 50 MCG PO (09:36)
[2020-05-03] MEDS: Loratadine 10 MG TABLET PO (09:37)
[2020-05-03] MEDS: Pyridoxine HCl (Vitamin B6) 50 MG TABLET PO (09:37)
[2020-05-03] MEDS: Thiamine HCL 100 MG TABLET PO (09:37)
[2020-05-03] MEDS: rifAXIMin 550 MG TABLET PO ×2 (09:37→21:22)
[2020-05-03] MEDS: Folic Acid 1 MG TABLET PO (09:37)
[2020-05-03] MEDS: Magnesium Oxide 400 MG TABLET PO ×2 (09:37→21:22)
[2020-05-03] MEDS: Sodium Chloride Tab 1 GM TABLET PO (09:37)
[2020-05-03] MEDS: Gabapentin 300 MG CAPSULE PO ×3 (09:38→21:22)
[2020-05-03] MEDS: risperiDONE 1 MG TABLET PO ×2 (09:38→21:23)
[2020-05-03] MEDS: Baclofen 10 MG TABLET PO ×2 (09:38→21:22)
[2020-05-03] MEDS: Lactulose 20 GM/30 ML SOLUTION 30 GM PO ×3 (09:40→21:22)
[2020-05-03 11:58] LABS: Glucose, Whole Blood 125 mg/dL (60-115)
--- NOTE | 2020-05-03 12:01 | HO.PM.IMPN ---
Subjective Subjective Date of Service: 05/03/20 Interval History: abd pain better Cardiovascular Cardiovascular: Reports no additional cardiovascular complaints Gastrointestinal Gastrointestinal: Reports no additional gastrointestinal complaints Physical Exam Vital Signs: Vital Signs: Last Vital Signs Temp 98.9 F 05/03/20 11:35 Pulse 83 05/03/20 11:35 Resp 18 05/03/20 11:35 BP 135/57 L 05/03/20 11:35 Pulse Ox 98 05/03/20 11:35 Body Mass Index 32.5 General: AO X 3, no acute distress, jaundiced Resp: CTA bilateral CVS: S1,S2,RRR GI: soft, non tender, non distended Neuro: motor grossly intact Psych: appropriate affect Objective Data Current Medications Generic Name Dose Route Start Last Admin Trade Name Freq PRN Reason Stop Dose Admin Albuterol Sulfate 2 puff 05/02/20 20:57 Albuterol Sulfate 90 Mcg 8 Gm Inhaler INHALE Q4H PRN Shortness Of Breath Baclofen 10 mg 05/02/20 21:00 05/03/20 09:38 Baclofen 10 Mg Tablet PO 10 mg BID LILLI Administration Calcium Carbonate 750 mg 05/02/20 20:57 Calcium Carbonate 750 Mg Tab.Chew PO TID PRN Heartburn Docusate Sodium 100 mg 05/02/20 20:57 Docusate Sodium 100 Mg Capsule PO BID PRN Constipation Fluticasone Propionate 2 puff 05/03/20 08:00 05/03/20 08:29 Fluticasone Propionate 250 Mcg Blst.W.Dev INHALE 2 puff RBID LILLI Administration Folic Acid 1 mg 05/03/20 09:00 05/03/20 09:37 Folic Acid 1 Mg Tablet PO 1 mg DAILY LILLI Administration Gabapentin 300 mg 05/02/20 21:00 05/03/20 09:38 Gabapentin 300 Mg Capsule PO 300 mg TID LILLI Administration Lactulose 30 gm 05/02/20 21:00 05/03/20 09:40 Lactulose 20 Gm/30 Ml Solution PO 30 gm TID LILLI Administration Loratadine 10 mg 05/03/20 09:00 05/03/20 09:37 Loratadine 10 Mg Tablet PO 10 mg DAILY LILLI Administration Magnesium Oxide 400 mg 05/02/20 21:00 05/03/20 09:37 Magnesium Oxide 400 Mg Tablet PO 400 mg BID LILLI Administration Omeprazole 20 mg 05/03/20 06:30 05/03/20 05:38 Omeprazole 20 Mg Capsule. PO 20 mg BID@0614,4570 LILLI Administration Pyridoxine HCl 50 mg 05/03/20 09:00 05/03/20 09:37 Pyridoxine Hcl (Vitamin B6) 50 Mg Tablet PO 50 mg DAILY LILLI Administration Rifaximin 550 mg 05/02/20 21:00 05/03/20 09:37 Rifaximin 550 Mg Tablet PO 550 mg BID LILLI Administration Risperidone 1 mg 05/02/20 21:00 05/03/20 09:38 Risperidone 1 Mg Tablet PO 1 mg BID LILLI Administration Sodium Chloride 3 ml 05/03/20 00:00 05/03/20 07:54 0.9 % Sodium Chloride Flush 3 Ml Syringe IVFLUSH 3 ml QSHIFT LILLI Administration Thiamine HCl 100 mg 05/03/20 09:00 05/03/20 09:37 Thiamine Hcl 100 Mg Tablet PO 100 mg DAILY LILLI Administration Vitamin D 50 mcg 05/03/20 09:00 05/03/20 09:36 Cholecalciferol (Vitamin D3) 25 Mcg Tablet PO 50 mcg DAILY LILLI Administration Labs CBC & Chem 7: 05/03/20 05:40 05/03/20 05:40 Assessment and Plan (1) Acute hyponatremia: Status: Acute (2) Advanced hepatic cirrhosis: Status: Acute Assessment and Plan: 54F presented wiith abd pain and hyponatremia hyponatremia, acute on chronic due to cirrhosis fluid restriction 1500 mL/d. follow sodium levels closely nephrology follwoing GI bleeding declined LIZ, stool occult pending no further reported bleeding follow CBC, no indication for transfusion at this time GI eval liver cirrhosis with thrombocytopenia/anemia chronic. as baseline due to cirrhosis. avoid heparin. hold torsemide no encephalopathy continue lactulose, xifaxan chronic pain disorder - gabapentin, baclofen mood - continue risperidone hypoMg continue home replacement DM2 Metformin d/c on last admission last A1c only 4.1 follow POCs DVT ppx - mechanical devices Code - SCDs, avoid heparin
--- NOTE | 2020-05-03 12:10 | P.CONNP_ITS ---
History of Present Illness Reason for Consult Consult date: 05/03/20 Chief Complaint Chief complaint: Hyponatremia History of Present Illness Narrative: 55-year-old female with history of alcoholic liver cirrhosis who was sent to the emergency department for abnormal blood work. She was discharged from the hospital on April 26 and sent to short-term rehab. She returned home Saturday. She reports drinking 2 40 oz bottles of water on Saturday. She has had four days of nausea and vomiting but is better today . Two days ago she had 2 episodes of blood red blood per rectum. She denies any rectal bleeding yesterday. In the ED her lab work was significant for sodium of 122. Nephrology was consulted to assist in her clinical care. Review of Systems Review of Systems Yes all other systems are reviewed and are negative PMFSH Past Medical History Medical History (Updated 05/03/20 @ 12:14 by Tristian Condon MD) Abnormal CT scan, gastrointestinal tract Anemia Anxiety Chronic back pain Chronic hyponatremia Cirrhosis Coagulopathy Congestive heart failure COPD (chronic obstructive pulmonary disease) Depression Diabetes 1.5, managed as type 2 Hyponatremia Liver disease Pneumonia PTSD (post-traumatic stress disorder) Thrombocytopenia Functional capacity: independent ambulation Family History Family History Other HTN (hypertension) Family history: reviewed and not pertinent Surgical History Surgical History History of cholecystectomy Previous back surgery S/P TIPS (transjugular intrahepatic portosystemic shunt) Social History Social History Household Members: Significant Other Housing: Apartment Do you presently have visiting nurse or other home services: Yes Alcohol intake: former Smoking Status: Current every day smoker Tobacco Type: Cigarette Packs Per Day: 0.5 Cigarettes Per Day: 2 Years Smoked: 40 Smoked in Last 30 Days: Yes Patient Interested in Nicotine Replacement: No Patient Given Instructions on How to Stop Smoking: No Second Hand Smoke Exposure: Yes Use of substances other than those prescribed or required for medical reasons: No Substance Use Type: Heroin and Marijuana Currently Displaying Signs/Symptoms of Drug Intoxication Withdrawal: No Any prior treatment program specific to substance use: Yes Have you been hit, kicked, punched, or otherwise hurt by someone within the past year? If so, by whom?: No Do you feel safe in your current relationship?: Yes Is there a partner from a previous relationship who is making you feel unsafe now?: No Are you made to feel afraid or neglected: No Advance Directives: No Advance Directives Information Provided: No Do you have thoughts of harming others: None Do you have a plan to hurt others: No Plan Recently lost weight without trying: No service: No Current occupational status: unemployed Meds Allergies Allergy/AdvReac Type Severity Reaction Status Date / Time Iodinated Contrast Media Allergy Severe ANAPHYLAXIS Verified 04/18/20 00:44 [CONTRAST, IV] amoxicillin [AMOXICILLIN] Allergy Intermediate NAUSEA & Verified 04/18/20 00:44 VOMITING lamotrigine [From LAMICTAL] Allergy Intermediate RASH Verified 04/18/20 00:44 Sulfa (Sulfonamide Allergy Intermediate Rash Verified 04/18/20 00:44 Antibiotics) [SULFA (SULFONAMIDE ANTIBIOTICS)] sulfamethoxazole Allergy Intermediate Rash Verified 04/18/20 00:44 [From BACTRIM] trimethoprim [From BACTRIM] Allergy Intermediate Rash Verified 04/18/20 00:44 Active Medications: Current Medications Generic Name Dose Route Start Last Admin Trade Name Freq PRN Reason Stop Dose Admin Albuterol Sulfate 2 puff 05/02/20 20:57 Albuterol Sulfate 90 Mcg 8 Gm Inhaler INHALE Q4H PRN Shortness Of Breath Baclofen 10 mg 05/02/20 21:00 05/03/20 09:38 Baclofen 10 Mg Tablet PO 10 mg BID LILLI Administration Calcium Carbonate 750 mg 05/02/20 20:57 Calcium Carbonate 750 Mg Tab.Chew PO TID PRN Heartburn Docusate Sodium 100 mg 05/02/20 20:57 Docusate Sodium 100 Mg Capsule PO BID PRN Constipation Fluticasone Propionate 2 puff 05/03/20 08:00 05/03/20 08:29 Fluticasone Propionate 250 Mcg Blst.W.Dev INHALE 2 puff RBID LILLI Administration Folic Acid 1 mg 05/03/20 09:00 05/03/20 09:37 Folic Acid 1 Mg Tablet PO 1 mg DAILY LILLI Administration Gabapentin 300 mg 05/02/20 21:00 05/03/20 09:38 Gabapentin 300 Mg Capsule PO 300 mg TID LILLI Administration Lactulose 30 gm 05/02/20 21:00 05/03/20 09:40 Lactulose 20 Gm/30 Ml Solution PO 30 gm TID LILLI Administration Loratadine 10 mg 05/03/20 09:00 05/03/20 09:37 Loratadine 10 Mg Tablet PO 10 mg DAILY LILLI Administration Magnesium Oxide 400 mg 05/02/20 21:00 05/03/20 09:37 Magnesium Oxide 400 Mg Tablet PO 400 mg BID LILLI Administration Omeprazole 20 mg 05/03/20 06:30 05/03/20 05:38 Omeprazole 20 Mg Capsule.Dr PO 20 mg BID@0630,0480 [facility] Administration Pyridoxine HCl 50 mg 05/03/20 09:00 05/03/20 09:37 Pyridoxine Hcl (Vitamin B6) 50 Mg Tablet PO 50 mg DAILY [facility] Administration Rifaximin 550 mg 05/02/20 21:00 05/03/20 09:37 Rifaximin 550 Mg Tablet PO 550 mg BID LILLI Administration Risperidone 1 mg 05/02/20 21:00 05/03/20 09:38 Risperidone 1 Mg Tablet PO 1 mg BID LILLI Administration Sodium Chloride 3 ml 05/03/20 00:00 05/03/20 07:54 0.9 % Sodium Chloride Flush 3 Ml Syringe IVFLUSH 3 ml QSHIFT [facility] Administration Thiamine HCl 100 mg 05/03/20 09:00 05/03/20 09:37 Thiamine Hcl 100 Mg Tablet PO 100 mg DAILY [facility] Administration Vitamin D 50 mcg 05/03/20 09:00 05/03/20 09:36 Cholecalciferol (Vitamin D3) 25 Mcg Tablet PO 50 mcg DAILY LILLI Administration Home Medications Medication Instructions Recorded Confirmed Last Taken Type Xifaxan 550 mg PO BID 01/20/20 05/02/20 02/18/20 History folic acid 1 mg PO DAILY 01/20/20 05/02/20 02/18/20 History potassium chloride 40 meq PO DAILY 01/20/20 05/02/20 02/18/20 History Flovent HFA 2 puff INHALATION BID 02/09/20 05/02/20 02/18/20 History albuterol sulfate 2 puff INHALATION Q4H PRN 02/09/20 05/02/20 02/18/20 History calcium carbonate [Antacid Ext Str 1 tab PO TID PRN 02/09/20 05/02/20 02/18/20 History (calcium carb)] thiamine HCl (vitamin B1) 100 mg PO DAILY 02/09/20 05/02/20 02/18/20 History baclofen 10 mg PO BID 02/13/20 05/02/20 02/18/20 History cetirizine 10 mg PO DAILY 02/19/20 05/02/20 02/18/20 History pyridoxine (vitamin B6) 50 mg PO DAILY 02/19/20 05/02/20 02/18/20 History Stiolto Respimat 2 puff INHALATION DAILY 02/26/20 05/02/20 Unknown History buprenorphine 1 patch TRANSDERMAL QWEEK 04/18/20 04/18/20 Unknown History cholecalciferol (vitamin D3) 50 mcg PO DAILY 04/18/20 05/02/20 Unknown History [Vitamin D3] docusate sodium 100 mg PO BID PRN 04/18/20 05/02/20 Unknown History gabapentin 300 mg PO TID 04/18/20 05/02/20 Unknown History magnesium oxide 400 mg PO BID 04/18/20 05/02/20 Unknown History omeprazole 20 mg PO BID@0630,1630 04/18/20 05/02/20 Unknown History risperidone 1 mg PO BID 04/18/20 05/02/20 Unknown History spironolactone 25 mg PO DAILY 04/18/20 05/02/20 Unknown History torsemide 40 mg PO DAILY 04/18/20 04/18/20 Unknown History Physical Exam Vital Signs: Last Vital Signs Temp 98.9 F 05/03/20 11:35 Pulse 83 05/03/20 11:35 Resp 18 05/03/20 11:35 BP 135/57 L 05/03/20 11:35 Pulse Ox 98 05/03/20 11:35 Body Mass Index 32.5 Const General: no acute distress Neck Neck: Yes supple Resp Auscultation: diminished lung sounds Cardio Jugular venous distension: no JVD GI Palpation (GI): Soft to palpation Neuro General: moves all extremities Results Lab Results Result Diagrams: 05/03/20 05:40 05/03/20 05:40 Lab results: Chemistry 05/02/20 05/02/20 05/03/20 14:25 18:41 00:10 Sodium 122 L 125 L 125 L Potassium 4.6 D 4.1 Carbon Dioxide 28 24 BUN 13 D 11 Creatinine 0.80 0.66 Calcium 7.9 L 7.3 L D 05/03/20 05:40 Sodium 124 L Potassium 4.1 Carbon Dioxide 24 BUN 10 Creatinine 0.69 Calcium 7.4 L Hematology 05/02/20 05/03/20 14:24 05:40 WBC 10.4 8.3 Hgb 8.6 L 7.6 L Plt Count 68 L 66 L Urinalysis 05/02/20 16:00 Urine Color YELLOW Urine Appearance CLEAR Urine pH 7.5 Ur Specific [place] 1.010 Urine Protein NEG Urine Glucose (UA) NEG Urine Ketones NEG Urine Blood NEG Urine Nitrite NEG Ur Leukocyte Esterase NEG Urine Studies 05/02/20 16:00 Urine Osmolality 178 L Assessment and Plan (1) Acute hyponatremia: Problem details: Hyponatremia likely multifactorial No Urea/NaCl tablets for now Free water restriction 1.5 L/24 hours for now Shall avoid rapid correction of hyponatremia Shall closely follow up along with Medicine colleagues Status: Acute
--- NOTE | 2020-05-03 14:25 | P.PNGI_ITS ---
Subjective Subjective Date of Service: 05/05/20 Interval History: PATIENT RETURNS AGAIN FROM HOME, EVIDENTLY, DISCHARGED FROM REHAB. ADMISSION SODIUM WAS LOW (SIMILAR TO MARCH ADMISSION.) Patient thinks she may have exceeded her fluid restriction. She had been very thirsty when she got back to her house. She says she has been eating fairly well. She had had one day also where she had had a lot of watery diarrhea. She had attributed that to her Lactulose dosing. Physical Exam Vital Signs: Vital Signs: Last Vital Signs Temp 98.9 F 05/03/20 11:35 Pulse 83 05/03/20 11:35 Resp 18 05/03/20 11:35 BP 135/57 L 05/03/20 11:35 Pulse Ox 98 05/03/20 11:35 Body Mass Index 32.5 Const: General: no acute distress, alert, awake and ill appearing Nutritional Appearance: overweight Orientation/consciousness: patient orien jose x3 Resp: Effort & Inspection: normal respiratory effort, able to speak in complete sentences, no cough, not labored, no respiratory distress and no retractions Cardio: Rate: regular rate Rhythm: regular rhythm GI: Inspection: Yes distended and Yes obesity Palpation (GI): Soft to palpation, Tenderness to palpation present (GI) (along right upper quad but seems hyperesthetic.--no rash seen) in the RUQ and no masses Neuro: General: patient oriented x3 Extrem: General: Yes no clubbing, cyanosis or edema Objective Data Labs CBC & Chem 7: 05/05/20 05:41 05/05/20 05:41 Labs: Laboratory Results - last 24 hr 05/02/20 05/02/20 05/02/20 14:24 14:25 14:25 WBC 10.4 RBC 2.46 L D Hgb 8.6 L Hct 25.6 L MCV 104.1 H MCH 35.0 H MCHC 33.6 RDW 21.4 H Plt Count 68 L MPV 11.1 Immature Gran % (Auto) 2.3 H Neut % (Auto) 79.2 H Lymph % (Auto) 8.1 L [place] % (Auto) 9.3 Eos % (Auto) 0.8 Baso % (Auto) 0.3 Lymph # (Auto) 0.9 L [place] # (Auto) 1.0 Eos # (Auto) 0.1 Baso # (Auto) 0.0 Abs Immat Gran (auto) 0.24 H Absolute Neuts (auto) 8.3 Absolute Nucleated RBC 0.000 Nucleated RBC % (auto) 0.0 PT 26.4 H INR 2.2 H APTT 55.9 H Sodium 122 L Potassium 4.6 D Chloride 90 L Carbon Dioxide 28 Anion Gap 9 L BUN 13 D Creatinine 0.80 Estim Creat Clear Calc 76.8 Estimated GFR > 60 POC Glucose Random Glucose 106 Osmolality Lactic Acid Calcium 7.9 L Magnesium 1.7 Total Bilirubin 10.0 H Direct Bilirubin 5.5 H AST 69 H ALT 27 Alkaline Phosphatase 161 H Ammonia B-Natriuretic Peptide Total Protein 5.7 L Albumin 2.1 L Urine Color Urine Appearance Urine pH Ur Specific [place] Urine Protein Urine Glucose (UA) Urine Ketones Urine Blood Urine Nitrite Ur Leukocyte Esterase Urine Osmolality Ur Random Sodium Urine Opiates Screen Ur Barbiturates Screen Ur Phencyclidine Scrn Ur Amphetamines Screen U Benzodiazepines Scrn Urine Cocaine Screen U Marijuana (THC) Screen Ethyl Alcohol COVID-19 (GIOVANI) COVID-19 Roadmap Blood Type Antibody Screen 05/02/20 05/02/20 05/02/20 14:25 14:25 14:25 WBC RBC Hgb Hct MCV MCH MCHC RDW Plt Count MPV Immature Gran % (Auto) Neut % (Auto) Lymph % (Auto) [place] % (Auto) Eos % (Auto) Baso % (Auto) Lymph # (Auto) [place] # (Auto) Eos # (Auto) Baso # (Auto) Abs Immat Gran (auto) Absolute Neuts (auto) Absolute Nucleated RBC Nucleated RBC % (auto) PT INR APTT Sodium Potassium Chloride Carbon Dioxide Anion Gap BUN Creatinine Estim Creat Clear Calc Estimated GFR POC Glucose Random Glucose Osmolality 265 L Lactic Acid 0.9 Calcium Magnesium Total Bilirubin Direct Bilirubin AST ALT Alkaline Phosphatase Ammonia 72 H B-Natriuretic Peptide Total Protein Albumin Urine Color Urine Appearance Urine pH Ur Specific [place] Urine Protein Urine Glucose (UA) Urine Ketones Urine Blood Urine Nitrite Ur Leukocyte Esterase Urine Osmolality Ur Random Sodium Urine Opiates Screen Ur Barbiturates Screen Ur Phencyclidine Scrn Ur Amphetamines Screen U Benzodiazepines Scrn Urine Cocaine Screen U Marijuana (THC) Screen Ethyl Alcohol COVID-19 (GIOVANI) COVID-19 Roadmap Blood Type Antibody Screen 05/02/20 05/02/20 05/02/20 14:25 14:25 16:00 WBC RBC Hgb Hct MCV MCH MCHC RDW Plt Count MPV Immature Gran % (Auto) Neut % (Auto) Lymph % (Auto) [place] % (Auto) Eos % (Auto) Baso % (Auto) Lymph # (Auto) [place] # (Auto) Eos # (Auto) Baso # (Auto) Abs Immat Gran (auto) Absolute Neuts (auto) Absolute Nucleated RBC Nucleated RBC % (auto) PT INR APTT Sodium Potassium Chloride Carbon Dioxide Anion Gap BUN Creatinine Estim Creat Clear Calc Estimated GFR POC Glucose Random Glucose Osmolality Lactic Acid Calcium Magnesium Total Bilirubin Direct Bilirubin AST ALT Alkaline Phosphatase Ammonia B-Natriuretic Peptide 68 Total Protein Albumin Urine Color YELLOW Urine Appearance CLEAR Urine pH 7.5 Ur Specific [place] 1.010 Urine Protein NEG Urine Glucose (UA) NEG Urine Ketones NEG Urine Blood NEG Urine Nitrite NEG Ur Leukocyte Esterase NEG Urine Osmolality Ur Random Sodium Urine Opiates Screen Ur Barbiturates Screen Ur Phencyclidine Scrn Ur Amphetamines Screen U Benzodiazepines Scrn Urine Cocaine Screen U Marijuana (THC) Screen Ethyl Alcohol < 10 COVID-19 (GIOVANI) COVID-[employer] Blood Type Antibody Screen 05/02/20 05/02/20 05/02/20 16:00 16:00 16:00 WBC RBC Hgb Hct MCV MCH MCHC RDW Plt Count MPV Immature Gran % (Auto) Neut % (Auto) Lymph % (Auto) [place] % (Auto) Eos % (Auto) Baso % (Auto) Lymph # (Auto) [place] # (Auto) Eos # (Auto) Baso # (Auto) Abs Immat Gran (auto) Absolute Neuts (auto) Absolute Nucleated RBC Nucleated RBC % (auto) PT INR APTT Sodium Potassium Chloride Carbon Dioxide Anion Gap BUN Creatinine Estim Creat Clear Calc Estimated GFR POC Glucose Random Glucose Osmolality Lactic Acid Calcium Magnesium Total Bilirubin Direct Bilirubin AST ALT Alkaline Phosphatase Ammonia B-Natriuretic Peptide Total Protein Albumin Urine Color Urine Appearance Urine pH Ur Specific [place] Urine Protein Urine Glucose (UA) Urine Ketones Urine Blood Urine Nitrite Ur Leukocyte Esterase Urine Osmolality 178 L Ur Random Sodium < 20.0 Urine Opiates Screen Not Detected Ur Barbiturates Screen Not Detected Ur Phencyclidine Scrn Not Detected Ur Amphetamines Screen Not Detected U Benzodiazepines Scrn Not Detected Urine Cocaine Screen Not Detected U Marijuana (THC) Screen Not Detected Ethyl Alcohol COVID-19 (GIOVANI) COVID-19 Clin Com Blood Type Antibody Screen 05/02/20 05/02/20 05/02/20 18:32 18:33 18:40 WBC RBC Hgb Hct MCV MCH MCHC RDW Plt Count MPV Immature Gran % (Auto) Neut % (Auto) Lymph % (Auto) [place] % (Auto) Eos % (Auto) Baso % (Auto) Lymph # (Auto) [place] # (Auto) Eos # (Auto) Baso # (Auto) Abs Immat Gran (auto) Absolute Neuts (auto) Absolute Nucleated RBC Nucleated RBC % (auto) PT INR APTT Sodium Potassium Chloride Carbon Dioxide Anion Gap BUN Creatinine Estim Creat Clear Calc Estimated GFR POC Glucose 103 Random Glucose Osmolality Lactic Acid Calcium Magnesium Total Bilirubin Direct Bilirubin AST ALT Alkaline Phosphatase Ammonia B-Natriuretic Peptide Total Protein Albumin Urine Color Urine Appearance Urine pH Ur Specific [place] Urine Protein Urine Glucose (UA) Urine Ketones Urine Blood Urine Nitrite Ur Leukocyte Esterase Urine Osmolality Ur Random Sodium Urine Opiates Screen Ur Barbiturates Screen Ur Phencyclidine Scrn Ur Amphetamines Screen U Benzodiazepines Scrn Urine Cocaine Screen U Marijuana (THC) Screen Ethyl Alcohol COVID-19 (GIOVANI) Negative COVID-19 Clin Com See Note Blood Type A Negative Antibody Screen NEGATIVE 05/02/20 05/03/20 05/03/20 18:41 00:10 05:40 WBC 8.3 RBC 2.13 L Hgb 7.6 L Hct 22.8 L MCV 107.0 H MCH 35.7 H MCHC 33.3 RDW 21.1 H Plt Count 66 L MPV 11.3 Immature Gran % (Auto) 2.3 H Neut % (Auto) 76.3 H Lymph % (Auto) 10.0 L [place] % (Auto) 9.7 Eos % (Auto) 1.2 Baso % (Auto) 0.5 Lymph # (Auto) 0.8 L [place] # (Auto) 0.8 Eos # (Auto) 0.1 Baso # (Auto) 0.0 Abs Immat Gran (auto) 0.19 H Absolute Neuts (auto) 6.3 Absolute Nucleated RBC 0.000 Nucleated RBC % (auto) 0.0 PT INR APTT Sodium 125 L 125 L Potassium 4.1 Chloride 94 L Carbon Dioxide 24 Anion Gap 11 L BUN 11 Creatinine 0.66 Estim Creat Clear Calc 93.2 Estimated GFR > 60 POC Glucose Random Glucose 135 H Osmolality Lactic Acid Calcium 7.3 L D Magnesium Total Bilirubin Direct Bilirubin AST ALT Alkaline Phosphatase Ammonia B-Natriuretic Peptide Total Protein Albumin Urine Color Urine Appearance Urine pH Ur Specific [place] Urine Protein Urine Glucose (UA) Urine Ketones Urine Blood Urine Nitrite Ur Leukocyte Esterase Urine Osmolality Ur Random Sodium Urine Opiates Screen Ur Barbiturates Screen Ur Phencyclidine Scrn Ur Amphetamines Screen U Benzodiazepines Scrn Urine Cocaine Screen U Marijuana (THC) Screen Ethyl Alcohol COVID-19 (GIOVANI) COVID-19 [employer] Com Blood Type Antibody Screen 05/03/20 05/03/20 05/03/20 05:40 05:40 07:35 WBC RBC Hgb Hct MCV MCH MCHC RDW Plt Count MPV Immature Gran % (Auto) Neut % (Auto) Lymph % (Auto) [place] % (Auto) Eos % (Auto) Baso % (Auto) Lymph # (Auto) [place] # (Auto) Eos # (Auto) Baso # (Auto) Abs Immat Gran (auto) Absolute Neuts (auto) Absolute Nucleated RBC Nucleated RBC % (auto) PT 28.8 H INR 2.4 H APTT Sodium 124 L Potassium 4.1 Chloride 93 L Carbon Dioxide 24 Anion Gap 11 L BUN 10 Creatinine 0.69 Estim Creat Clear Calc 89.1 Estimated GFR > 60 POC Glucose 103 Random Glucose 198 H D Osmolality Lactic Acid Calcium 7.4 L Magnesium Total Bilirubin 9.3 H Direct Bilirubin 4.8 H AST 69 H ALT 23 Alkaline Phosphatase 128 H D Ammonia B-Natriuretic Peptide Total Protein 5.1 L Albumin 1.8 L Urine Color Urine Appearance Urine pH Ur Specific [place] Urine Protein Urine Glucose (UA) Urine Ketones Urine Blood Urine Nitrite Ur Leukocyte Esterase Urine Osmolality Ur Random Sodium Urine Opiates Screen Ur Barbiturates Screen Ur Phencyclidine Scrn Ur Amphetamines Screen U Benzodiazepines Scrn Urine Cocaine Screen U Marijuana (THC) Screen Ethyl Alcohol COVID-19 (GIOVANI) COVID-19 [employer] Blood Type Antibody Screen 05/03/20 11:32 WBC RBC Hgb Hct MCV MCH MCHC RDW Plt Count MPV Immature Gran % (Auto) Neut % (Auto) Lymph % (Auto) [place] % (Auto) Eos % (Auto) Baso % (Auto) Lymph # (Auto) [place] # (Auto) Eos # (Auto) Baso # (Auto) Abs Immat Gran (auto) Absolute Neuts (auto) Absolute Nucleated RBC Nucleated RBC % (auto) PT INR APTT Sodium Potassium Chloride Carbon Dioxide Anion Gap BUN Creatinine Estim Creat Clear Calc Estimated GFR POC Glucose 125 H Random Glucose Osmolality Lactic Acid Calcium Magnesium Total Bilirubin Direct Bilirubin AST ALT Alkaline Phosphatase Ammonia B-Natriuretic Peptide Total Protein Albumin Urine Color Urine Appearance Urine pH Ur Specific [place] Urine Protein Urine Glucose (UA) Urine Ketones Urine Blood Urine Nitrite Ur Leukocyte Esterase Urine Osmolality Ur Random Sodium Urine Opiates Screen Ur Barbiturates Screen Ur Phencyclidine Scrn Ur Amphetamines Screen U Benzodiazepines Scrn Urine Cocaine Screen U Marijuana (THC) Screen Ethyl Alcohol COVID-19 (GIOVANI) COVID-19 Clin Com Blood Type Antibody Screen Progress Note: A&P Assessment and plan (1) Acute lower gastrointestinal bleeding: Status: Acute Assessment and Plan: Patient attributed bleeding to a recent episode of diarrhea. Has not had any further bleeding in > 24hrs. I am again trying to get Dr. Dias's input for plan. She has followup scheduled for June. (2) Advanced hepatic cirrhosis: Problem details: From [facility] record ?IOV with Dr. Kaushik Redding: 07/06/19--Hx TIPS done @ [facility]-06/03 Multiple episodes of Encephalopathy since then has been Followed by Dr. Ander Martin--taken off transplant list due to return to alcohol. Hx prior to above: Alcohol Hepatitis: 2016 treated with steroids; alcohol induced pancreatitis; PTSD, Bipolar 1 with major depression, Diabetes, COPD/Asthma, smoker, Polysubstance abuse. EGD--[facility]-08/2019--NO VARICES; HGB(?date?) 8.9. Status: Acute Assessment and Plan: Patient says she has been told that [facility] will not take her for ? transplant??? She still insists it has been 7 months recovery for alcohol. She did have the ? Heroin issue more recently. Will see if [facility] has a plan or not. Still waiting for more information. SHE HAS A TELE VISIT WITH DR. DIAS BEGINNING OF JUNE. (3) Anemia: Status: Acute Assessment and Plan: She has probably bled from hemorrhoids--due to her portal hypertension and diarrhea and coagulopathy. This would be best managed by Dr. Dias since she has TIPS in place. WAITING FOR FURTHER INFO ON LAST COLO. (4) Hepatic encephalopathy: Status: Acute Assessment and Plan: Clinically, she is not encephalopathic although her Ammonia was elevated (mildly) on admission. Fall Risk Details Current Medications: Current Medications Generic Name Dose Route Start Last Admin Trade Name Rodq PRN Reason Stop Dose Admin Albuterol Sulfate 2 puff 05/02/20 20:57 Albuterol Sulfate 90 Mcg 8 Gm Inhaler INHALE Q4H PRN Shortness Of Breath Baclofen 10 mg 05/02/20 21:00 05/03/20 09:38 Baclofen 10 Mg Tablet PO 10 mg BID LILLI Administration Calcium Carbonate 750 mg 05/02/20 20:57 Calcium Carbonate 750 Mg Tab.Chew PO TID PRN Heartburn Docusate Sodium 100 mg 05/02/20 20:57 Docusate Sodium 100 Mg Capsule PO BID PRN Constipation Fluticasone Propionate 2 puff 05/03/20 08:00 05/03/20 08:29 Fluticasone Propionate 250 Mcg Blst.W.Dev INHALE 2 puff RBID LILLI Administration Folic Acid 1 mg 05/03/20 09:00 05/03/20 09:37 Folic Acid 1 Mg Tablet PO 1 mg DAILY LILLI Administration Gabapentin 300 mg 05/02/20 21:00 05/03/20 09:38 Gabapentin 300 Mg Capsule PO 300 mg TID LILLI Administration Lactulose 30 gm 05/02/20 21:00 05/03/20 09:40 Lactulose 20 Gm/30 Ml Solution PO 30 gm TID LILIL Administration Loratadine 10 mg 05/03/20 09:00 05/03/20 09:37 Loratadine 10 Mg Tablet PO 10 mg DAILY LILLI Administration Magnesium Oxide 400 mg 05/02/20 21:00 05/03/20 09:37 Magnesium Oxide 400 Mg Tablet PO 400 mg BID LILLI Administration Omeprazole 20 mg 05/03/20 06:30 05/03/20 05:38 Omeprazole 20 Mg Capsule.Dr PO 20 mg BID@1862,0410 LILLI Administration Pyridoxine HCl 50 mg 05/03/20 09:00 05/03/20 09:37 Pyridoxine Hcl (Vitamin B6) 50 Mg Tablet PO 50 mg DAILY LILLI Administration Rifaximin 550 mg 05/02/20 21:00 05/03/20 09:37 Rifaximin 550 Mg Tablet PO 550 mg BID LILLI Administration Risperidone 1 mg 05/02/20 21:00 05/03/20 09:38 Risperidone 1 Mg Tablet PO 1 mg BID LILLI Administration Sodium Chloride 3 ml 05/03/20 00:00 05/03/20 07:54 0.9 % Sodium Chloride Flush 3 Ml Syringe IVFLUSH 3 ml QSHIFT LILLI Administration Thiamine HCl 100 mg 05/03/20 09:00 05/03/20 09:37 Thiamine Hcl 100 Mg Tablet PO 100 mg DAILY LILLI Administration Vitamin D 50 mcg 05/03/20 09:00 05/03/20 09:36 Cholecalciferol (Vitamin D3) 25 Mcg Tablet PO 50 mcg DAILY LILLI Administration Time Spent With Patient Time: Total time spent is greater than 50% in coordination of care (as documented) at patient's floor/unit and/or counseling patient:32 minutes to include trying to consolidate records from 3 institutions--[facility], [facility] and [facility]. Time with patient: 15 - 24 minutes
[2020-05-03 16:57] LABS: Glucose, Whole Blood 159 mg/dL (60-115)
[2020-05-03 20:59] LABS: Glucose, Whole Blood 141 mg/dL (60-115)
[2020-05-03] MEDS: ondansetron HCL 4 MG/2 ML VIAL IVPUSH (23:33)
[2020-05-04] VITALS (9 sets, daily range): BP systolic 113–143; BP diastolic 50–67; PULSE 66–98; RESP 16–20; TEMP 36.4–37.7; O2SAT 93–100
--- NOTE | 2020-05-04 01:08 | PC.NURSE ---
P-PT C/O NAUSEA,DRY HEAVES,VOMITTED ABOUT 100 CC I- NOTIFIED.ORDERED ZOFRAN 4MG IV.GIVEN AT 2330 E-PT STATES GOOD EFFECT
[2020-05-04 05:41] LABS: Eosinophils Absolute Auto 0.1 X10*3/uL (0.0-0.4); Eosinophils Percent Auto 0.8 % (0-4); Monocytes Percent Auto 12.2 % (2-11); PLT CLUMP 1; Red Blood Count 2.16 X10*6/uL (4.20-5.50); SCAN SMEAR FLAG 1
[2020-05-04 05:43] LABS: Basophils Percent Auto 0.4 % (0-2); Hematocrit 22.9 % (37-47); Hemoglobin 7.6 g/dl (12.0-16.0); Imm Gran Abs Auto 0.24 X10*3/uL (0.00-0.03); Imm Gran Pct Auto 2.1 % (0.0-0.4); Lymphocytes Absolute Auto 0.9 X10*3/uL (1.2-4.9); Lymphocytes Percent Auto 8.1 % (20-40); Mean Corpuscular HGB Conc 33.2 g/dl (31.0-35.0); Mean Corpuscular Hemoglobin 35.2 pg (27.0-33.0); Mean Platelet Volume 11.2 fL (9.4-12.3); Monocytes Absolute Auto 1.4 X10*3/uL (0.1-1.2); Neutrophils Absolute Auto 8.6 X10*3/uL (2.0-8.3); Neutrophils Percent Auto 76.4 % (45-73); Platelet Count 75 X10*3/uL (160-400); White Blood Count 11.3 X10*3/uL (4.8-10.8)
[2020-05-04 05:46] LABS: MANUAL DIFF FLAG NO
[2020-05-04] MEDS: Omeprazole 20 MG CAPSULE.DR PO ×2 (05:59→15:20)
[2020-05-04 06:17] LABS: Anion Gap 8 (12-20); Blood Urea Nitrogen 8 mg/dL (9-16); Calcium 7.6 mg/dL (8.4-10.2); Carbon Dioxide 28 mmol/L (22-29); Chloride 89 mmol/L (96-108); Creatinine Clr Calc Pharmacy 84.2; Estimated Glomerular Filt Rate > 60; Glucose Fasting 116 mg/dL (60-99); Sodium 121 mmol/L (135-145)
[2020-05-04 07:44] LABS: Glucose, Whole Blood 130 mg/dL (60-115)
[2020-05-04] MEDS: Fluticasone Propionate 250 MCG BLST.W.DEV 2 PUFF INHALE ×2 (07:50→19:51)
[2020-05-04] MEDS: Cholecalciferol (Vitamin D3) 25 MCG TABLET 50 MCG PO (09:39)
[2020-05-04] MEDS: Pyridoxine HCl (Vitamin B6) 50 MG TABLET PO (09:39)
[2020-05-04] MEDS: Magnesium Oxide 400 MG TABLET PO ×2 (09:39→22:26)
[2020-05-04] MEDS: risperiDONE 1 MG TABLET PO ×2 (09:39→22:26)
[2020-05-04] MEDS: Thiamine HCL 100 MG TABLET PO (09:39)
[2020-05-04] MEDS: Lactulose 20 GM/30 ML SOLUTION 30 GM PO ×3 (09:39→22:26)
[2020-05-04] MEDS: Folic Acid 1 MG TABLET PO (09:39)
[2020-05-04] MEDS: 0.9 % Sodium Chloride Flush 3 ML SYRINGE IVFLUSH ×2 (09:39→22:33)
[2020-05-04] MEDS: Loratadine 10 MG TABLET PO (09:39)
[2020-05-04] MEDS: rifAXIMin 550 MG TABLET PO ×2 (09:39→22:26)
[2020-05-04] MEDS: Gabapentin 300 MG CAPSULE PO ×3 (09:39→22:26)
[2020-05-04] MEDS: Baclofen 10 MG TABLET PO ×2 (09:39→22:26)
[2020-05-04] MEDS: ondansetron HCL 4 MG/2 ML VIAL IVPUSH (10:15)
--- NOTE | 2020-05-04 10:15 | HO.PM.IMPN ---
Subjective Subjective Date of Service: 05/04/20 Interval History: nausea Cardiovascular Cardiovascular: Reports no additional cardiovascular complaints Gastrointestinal Gastrointestinal: Reports no additional gastrointestinal complaints Physical Exam Vital Signs: Vital Signs: Last Vital Signs Temp 97.6 F 05/04/20 08:00 Pulse 96 05/04/20 08:00 Resp 16 05/04/20 08:00 BP 117/50 L 05/04/20 08:00 Pulse Ox 98 05/04/20 08:00 Body Mass Index 32.5 General: AO X 3, no acute distress, juandiced Resp: CTA bilateral CVS: S1,S2,RRR GI: soft, non tender, non distended Neuro: motor grossly intact Psych: appropriate affect Objective Data Current Medications Generic Name Dose Route Start Last Admin Trade Name Freq PRN Reason Stop Dose Admin Albuterol Sulfate 2 puff 05/02/20 20:57 Albuterol Sulfate 90 Mcg 8 Gm Inhaler INHALE Q4H PRN Shortness Of Breath Baclofen 10 mg 05/02/20 21:00 05/04/20 09:39 Baclofen 10 Mg Tablet PO 10 mg BID LILLI Administration Calcium Carbonate 750 mg 05/02/20 20:57 Calcium Carbonate 750 Mg Tab.Chew PO TID PRN Heartburn Docusate Sodium 100 mg 05/02/20 20:57 Docusate Sodium 100 Mg Capsule PO BID PRN Constipation Fluticasone Propionate 2 puff 05/03/20 08:00 05/04/20 07:50 Fluticasone Propionate 250 Mcg Blst.W.Dev INHALE 2 puff RBID LILLI Administration Folic Acid 1 mg 05/03/20 09:00 05/04/20 09:39 Folic Acid 1 Mg Tablet PO 1 mg DAILY LILLI Administration Gabapentin 300 mg 05/02/20 21:00 05/04/20 09:39 Gabapentin 300 Mg Capsule PO 300 mg TID LILLI Administration Lactulose 30 gm 05/02/20 21:00 05/04/20 09:39 Lactulose 20 Gm/30 Ml Solution PO 30 gm TID LILLI Administration Loratadine 10 mg 05/03/20 09:00 05/04/20 09:39 Loratadine 10 Mg Tablet PO 10 mg DAILY LILLI Administration Magnesium Oxide 400 mg 05/02/20 21:00 05/04/20 09:39 Magnesium Oxide 400 Mg Tablet PO 400 mg BID LILLI Administration Omeprazole 20 mg 05/03/20 06:30 05/04/20 05:59 Omeprazole 20 Mg Capsule. PO 20 mg BID@3667,7089 LILLI Administration Ondansetron HCl 4 mg 05/04/20 09:43 Ondansetron Hcl 4 Mg/2 Ml Vial IVPUSH Q8H PRN Nausea Pyridoxine HCl 50 mg 05/03/20 09:00 05/04/20 09:39 Pyridoxine Hcl (Vitamin B6) 50 Mg Tablet PO 50 mg DAILY LILLI Administration Rifaximin 550 mg 05/02/20 21:00 05/04/20 09:39 Rifaximin 550 Mg Tablet PO 550 mg BID LILLI Administration Risperidone 1 mg 05/02/20 21:00 05/04/20 09:39 Risperidone 1 Mg Tablet PO 1 mg BID LILLI Administration Sodium Chloride 3 ml 05/03/20 00:00 05/04/20 09:39 0.9 % Sodium Chloride Flush 3 Ml Syringe IVFLUSH 3 ml QSHIFT LILLI Administration Thiamine HCl 100 mg 05/03/20 09:00 05/04/20 09:39 Thiamine Hcl 100 Mg Tablet PO 100 mg DAILY LILLI Administration Vitamin D 50 mcg 05/03/20 09:00 05/04/20 09:39 Cholecalciferol (Vitamin D3) 25 Mcg Tablet PO 50 mcg DAILY LILLI Administration Labs CBC & Chem 7: 05/04/20 05:16 05/04/20 05:16 Microbiology Microbiology Results: Microbiology 05/02/20 16:00 Blood - Venous Blood Culture - Preliminary No growth after 24 hours. 05/02/20 14:24 Blood - Venous Blood Culture - Preliminary No growth after 24 hours. Assessment and Plan (1) Acute hyponatremia: Problem details: Hyponatremia likely multifactorial No Urea/NaCl tablets for now Free water restriction 1.5 L/24 hours for now Shall avoid rapid correction of hyponatremia Shall closely follow up along with Medicine colleagues Status: Acute (2) Advanced hepatic cirrhosis: Status: Acute Assessment and Plan: 54F presented wiith abd pain and hyponatremia hyponatremia, acute on chronic due to cirrhosis fluid restriction 1500 mL/d. follow sodium levels closely, down today to 121 nephrology follwoing GI bleeding declined LIZ, stool occult pending no further reported bleeding likely hemmeroidal, hgb stable liver cirrhosis with thrombocytopenia/anemia chronic. as baseline due to cirrhosis. avoid heparin. hold torsemide no encephalopathy continue lactulose, xifaxan chronic pain disorder - gabapentin, baclofen mood - continue risperidone hypoMg continue home replacement DM2 Metformin d/c on last admission last A1c only 4.1 follow POCs DVT ppx - mechanical devices Code - SCDs, avoid heparin
--- NOTE | 2020-05-04 10:32 | MHC.CM.PN ---
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
--- NOTE | 2020-05-04 10:46 | MHC.CM.NN ---
NURSE PATIENT INTAKE REPRESENTATIVE NOTE ELECTRONIC MEDICAL RECORD REVIEWED ALONG WITH CASE DISCUSSED WITH STAFF NURSE AND THE HOSPITALIST PATIENT SODIUM LABS ARE LOWER TODAY THAN YESTERDAY , PLAN CONTINUE CURRENT TREATMENT AND MoNITOR ALL LABS COVERSTITCH BINDER T CONTINUE TO FOLLOW FOR D/C-(JUSTIN (RN/PT) RESUMPTION OF HER [facility] cardiac care nurse /social studies department chair resumption of her mental health counseling
[2020-05-04] MEDS: Acetaminophen 325 MG TABLET PO (11:25)
[2020-05-04 11:44] LABS: Glucose, Whole Blood 147 mg/dL (60-115)
[2020-05-04] MEDS: oxyCODONE HCl Immed Release 5 MG TABLET 2.5 MG PO ×2 (12:26→18:26)
[2020-05-04] MEDS: 0.9 % Sodium Chloride 1,000 ML 100 ML IVCONT (12:29)
--- NOTE | 2020-05-04 12:30 | PM.PNNEP ---
Subjective Subjective Date of Service: 05/04/20 Interval history: C/O nausea. Events noted. All recent data reviewed Physical Exam Vital Signs: Vital Signs: Last Vital Signs Temp 98.4 F 05/04/20 12:00 Pulse 87 05/04/20 12:00 Resp 18 05/04/20 12:00 BP 139/60 05/04/20 12:00 Pulse Ox 98 05/04/20 12:00 Body Mass Index 32.5 Const: General: no acute distress Neck: Neck: Yes supple Resp: Auscultation: diminished lung sounds Cardio: Jugular venous distension: no JVD GI: Palpation (GI): Soft to palpation Neuro: General: moves all extremities Objective Data Labs CBC & Chem 7: 05/04/20 05:16 05/04/20 05:16 Labs: Laboratory Results - last 24 hr 05/03/20 05/03/20 05/04/20 16:53 20:54 05:16 WBC 11.3 H RBC 2.16 L Hgb 7.6 L Hct 22.9 L MCV 106.0 H MCH 35.2 H MCHC 33.2 RDW 20.0 H Plt Count 75 L MPV 11.2 Immature Gran % (Auto) 2.1 H Neut % (Auto) 76.4 H Lymph % (Auto) 8.1 L [place] % (Auto) 12.2 H Eos % (Auto) 0.8 Baso % (Auto) 0.4 Lymph # (Auto) 0.9 L [place] # (Auto) 1.4 H Eos # (Auto) 0.1 Baso # (Auto) 0.0 Abs Immat Gran (auto) 0.24 H Absolute Neuts (auto) 8.6 H Absolute Nucleated RBC 0.000 Nucleated RBC % (auto) 0.0 Sodium Potassium Chloride Carbon Dioxide Anion Gap BUN Creatinine Estim Creat Clear Calc Estimated GFR POC Glucose 159 H 141 H Fasting Glucose Calcium 05/04/20 05/04/20 05/04/20 05:16 07:40 11:12 WBC RBC Hgb Hct MCV MCH MCHC RDW Plt Count MPV Immature Gran % (Auto) Neut % (Auto) Lymph % (Auto) [place] % (Auto) Eos % (Auto) Baso % (Auto) Lymph # (Auto) [place] # (Auto) Eos # (Auto) Baso # (Auto) Abs Immat Gran (auto) Absolute Neuts (auto) Absolute Nucleated RBC Nucleated RBC % (auto) Sodium 121 L Potassium 4.0 Chloride 89 L Carbon Dioxide 28 Anion Gap 8 L BUN 8 L Creatinine 0.73 Estim Creat Clear Calc 84.2 Estimated GFR > 60 POC Glucose 130 H 147 H Fasting Glucose 116 H Calcium 7.6 L Microbiology Microbiology Results: Microbiology 05/02/20 16:00 Blood - Venous Blood Culture - Preliminary No growth after 24 hours. 05/02/20 14:24 Blood - Venous Blood Culture - Preliminary No growth after 24 hours. Assessment & Plan Assessment and plan (1) Acute hyponatremia: Problem details: Hyponatremia likely multifactorial No Urea/NaCl tablets for now; Shall give 1 L 0.9 % NaCl today Shall avoid rapid correction of hyponatremia Shall closely follow up along with Medicine colleagues Status: Acute Time Spent With Patient Time: Total time spent is greater than 50% in coordination of care (as documented) at patient's floor/unit and/or counseling patient:
[2020-05-04 16:48] LABS: Glucose, Whole Blood 171 mg/dL (60-115)
--- NOTE | 2020-05-04 18:09 | PC.NURSE ---
Patient complaining of right abdominal pain. Dr. Junior made aware. Acetaminophen 325mg given with no affect. Patient ringing orellana and calling out often from pain and requesting Morphine. 2.5mg Oxycodone ordered and given with some effectiveness. No further complaints at this time.
[2020-05-04 20:39] LABS: Glucose, Whole Blood 154 mg/dL (60-115)
[2020-05-05] VITALS (8 sets, daily range): BP systolic 112–163; BP diastolic 51–81; PULSE 84–96; RESP 16–20; TEMP 36.4–37; O2SAT 95–100
[2020-05-05] MEDS: oxyCODONE HCl Immed Release 5 MG TABLET 2.5 MG PO ×4 (02:29→20:32)
[2020-05-05] MEDS: Omeprazole 20 MG CAPSULE.DR PO ×2 (05:41→15:16)
[2020-05-05 06:10] LABS: Basophils Absolute Auto 0.1 X10*3/uL (0.0-0.2); Basophils Percent Auto 0.4 % (0-2); Eosinophils Absolute Auto 0.1 X10*3/uL (0.0-0.4); Eosinophils Percent Auto 0.7 % (0-4); Monocytes Absolute Auto 1.3 X10*3/uL (0.1-1.2); PLT CLUMP 1; Red Blood Count 2.12 X10*6/uL (4.20-5.50); SCAN SMEAR FLAG 1
[2020-05-05 06:12] LABS: Hematocrit 22.1 % (37-47); Hemoglobin 7.6 g/dl (12.0-16.0); Imm Gran Abs Auto 0.31 X10*3/uL (0.00-0.03); Imm Gran Pct Auto 2.6 % (0.0-0.4); Lymphocytes Absolute Auto 0.9 X10*3/uL (1.2-4.9); Lymphocytes Percent Auto 7.8 % (20-40); Mean Corpuscular HGB Conc 34.4 g/dl (31.0-35.0); Mean Corpuscular Hemoglobin 35.8 pg (27.0-33.0); Mean Corpuscular Volume 104.2 fL (80-98); Mean Platelet Volume 11.2 fL (9.4-12.3); Monocytes Percent Auto 11.2 % (2-11); Neutrophils Absolute Auto 9.1 X10*3/uL (2.0-8.3); Neutrophils Percent Auto 77.3 % (45-73); Red Cell Distribution Width 18.8 % (11.0-16.0); White Blood Count 11.8 X10*3/uL (4.8-10.8)
[2020-05-05 06:14] LABS: MANUAL DIFF FLAG NO; Platelet Count 75 X10*3/uL (160-400)
[2020-05-05 06:31] LABS: Anion Gap 12 (12-20); Blood Urea Nitrogen 8 mg/dL (9-16); Calcium 7.4 mg/dL (8.4-10.2); Carbon Dioxide 25 mmol/L (22-29); Chloride 92 mmol/L (96-108); Creatinine Clr Calc Pharmacy 91.8; Estimated Glomerular Filt Rate > 60; Glucose Fasting 103 mg/dL (60-99); Potassium 4.5 mmol/L (3.3-5.1); Sodium 124 mmol/L (135-145)
[2020-05-05 08:08] LABS: Glucose, Whole Blood 135 mg/dL (60-115)
[2020-05-05] MEDS: Fluticasone Propionate 250 MCG BLST.W.DEV 2 PUFF INHALE ×2 (08:22→20:37)
[2020-05-05] MEDS: Gabapentin 300 MG CAPSULE PO ×3 (08:55→20:31)
[2020-05-05] MEDS: Cholecalciferol (Vitamin D3) 25 MCG TABLET 50 MCG PO (08:55)
[2020-05-05] MEDS: risperiDONE 1 MG TABLET PO ×2 (08:55→20:31)
[2020-05-05] MEDS: Loratadine 10 MG TABLET PO (08:55)
[2020-05-05] MEDS: Pyridoxine HCl (Vitamin B6) 50 MG TABLET PO (08:56)
[2020-05-05] MEDS: Lactulose 20 GM/30 ML SOLUTION 30 GM PO ×3 (08:56→20:32)
[2020-05-05] MEDS: Thiamine HCL 100 MG TABLET PO (08:56)
[2020-05-05] MEDS: rifAXIMin 550 MG TABLET PO ×2 (08:56→20:31)
[2020-05-05] MEDS: Magnesium Oxide 400 MG TABLET PO ×2 (08:56→20:31)
[2020-05-05] MEDS: Baclofen 10 MG TABLET PO ×2 (08:56→20:31)
[2020-05-05] MEDS: Folic Acid 1 MG TABLET PO (08:56)
[2020-05-05] MEDS: 0.9 % Sodium Chloride Flush 3 ML SYRINGE IVFLUSH (09:01)
--- NOTE | 2020-05-05 09:30 | P.PNIM_ITS ---
Subjective Subjective Date of Service: 05/05/20 Interval History: no complaints Cardiovascular Cardiovascular: Reports no additional cardiovascular complaints Respiratory Respiratory: Reports no additional respiratory complaints Physical Exam Vital Signs: Vital Signs: Last Vital Signs Temp 98.0 F 05/05/20 08:00 Pulse 92 05/05/20 08:22 Resp 19 05/05/20 08:00 BP 112/51 L 05/05/20 08:00 Pulse Ox 99 05/05/20 08:00 Body Mass Index 32.5 General: AO X 3, no acute distress, juandice Resp: CTA bilateral CVS: S1,S2,RRR GI: soft, non tender, non distended Neuro: motor grossly intact Psych: appropriate affect Objective Data Current Medications Generic Name Dose Route Start Last Admin Trade Name Freq PRN Reason Stop Dose Admin Acetaminophen 325 mg 05/04/20 11:04 05/04/20 11:25 Acetaminophen 325 Mg Tablet PO 325 mg Q8H PRN Administration pain Albuterol Sulfate 2 puff 05/02/20 20:57 Albuterol Sulfate 90 Mcg 8 Gm Inhaler INHALE Q4H PRN Shortness Of Breath Baclofen 10 mg 05/02/20 21:00 05/05/20 08:56 Baclofen 10 Mg Tablet PO 10 mg BID LILLI Administration Calcium Carbonate 750 mg 05/02/20 20:57 Calcium Carbonate 750 Mg Tab.Chew PO TID PRN Heartburn Docusate Sodium 100 mg 05/02/20 20:57 Docusate Sodium 100 Mg Capsule PO BID PRN Constipation Fluticasone Propionate 2 puff 05/03/20 08:00 05/05/20 08:22 Fluticasone Propionate 250 Mcg Blst.W.Dev INHALE 2 puff RBID LILLI Administration Folic Acid 1 mg 05/03/20 09:00 05/05/20 08:56 Folic Acid 1 Mg Tablet PO 1 mg DAILY LILLI Administration Gabapentin 300 mg 05/02/20 21:00 05/05/20 08:55 Gabapentin 300 Mg Capsule PO 300 mg TID LILLI Administration Lactulose 30 gm 05/02/20 21:00 05/05/20 08:56 Lactulose 20 Gm/30 Ml Solution PO 30 gm TID LILLI Administration Loratadine 10 mg 05/03/20 09:00 05/05/20 08:55 Loratadine 10 Mg Tablet PO 10 mg DAILY LILLI Administration Magnesium Oxide 400 mg 05/02/20 21:00 05/05/20 08:56 Magnesium Oxide 400 Mg Tablet PO 400 mg BID LILLI Administration Omeprazole 20 mg 05/03/20 06:30 05/05/20 05:41 Omeprazole 20 Mg Capsule. PO 20 mg BID@0630,6050 LILLI Administration Ondansetron HCl 4 mg 05/04/20 09:43 05/04/20 10:15 Ondansetron Hcl 4 Mg/2 Ml Vial IVPUSH 4 mg Q8H PRN Administration Nausea Oxycodone HCl 2.5 mg 05/04/20 12:10 05/05/20 08:54 Oxycodone Hcl Immed Release 5 Mg Tablet PO 2.5 mg Q6H PRN Administration pain Pyridoxine HCl 50 mg 05/03/20 09:00 05/05/20 08:56 Pyridoxine Hcl (Vitamin B6) 50 Mg Tablet PO 50 mg DAILY LILLI Administration Rifaximin 550 mg 05/02/20 21:00 05/05/20 08:56 Rifaximin 550 Mg Tablet PO 550 mg BID LILLI Administration Risperidone 1 mg 05/02/20 21:00 05/05/20 08:55 Risperidone 1 Mg Tablet PO 1 mg BID LILLI Administration Sodium Chloride 3 ml 05/03/20 00:00 05/05/20 09:01 0.9 % Sodium Chloride Flush 3 Ml Syringe IVFLUSH 3 ml QSHIFT [facility] Administration Thiamine HCl 100 mg 05/03/20 09:00 05/05/20 08:56 Thiamine Hcl 100 Mg Tablet PO 100 mg DAILY LILLI Administration Vitamin D 50 mcg 05/03/20 09:00 05/05/20 08:55 Cholecalciferol (Vitamin D3) 25 Mcg Tablet PO 50 mcg DAILY LILLI Administration Labs CBC & Chem 7: 05/05/20 05:41 05/05/20 05:41 Microbiology Microbiology Results: Microbiology 05/02/20 16:00 Blood - Venous Blood Culture - Preliminary No growth after 48 hours. 05/02/20 14:24 Blood - Venous Blood Culture - Preliminary No growth after 48 hours. Assessment and Plan (1) Acute hyponatremia: Problem details: Hyponatremia likely multifactorial No Urea/NaCl tablets for now; Shall give 1 L 0.9 % NaCl today Shall avoid rapid correction of hyponatremia Shall closely follow up along with Medicine colleagues Status: Acute Assessment and Plan: 54F presented malia jean pain and hyponatremia hyponatremia, acute on chronic due to cirrhosis fluid restriction 1500 mL/d. received 1L NS 05/04/2020 follow sodium levels closely, increased today from 121 to 124 nephrology following GI bleeding declined LIZ, stool occult pending no further reported bleeding likely hemmeroidal, hgb stable liver cirrhosis with thrombocytopenia/anemia chronic. at baseline no encephalopathy continue lactulose, xifaxan chronic pain disorder - gabapentin, baclofen mood - continue risperidone hypoMg continue home replacement DM2 Metformin d/c on last admission last A1c only 4.1 follow POCs DVT ppx - mechanical devices Code - SCDs, avoid heparin
[2020-05-05 11:45] LABS: Glucose, Whole Blood 178 mg/dL (60-115)
[2020-05-05 12:02] LABS: C Reactive Protein 1.11 mg/dL (< or = 0.50); Gamma Glutamyl Transpeptidase 26 U/L (7-33); Lactate Dehydrogenase 308 U/L (122-220); Magnesium 2.1 mg/dL (1.6-2.6)
[2020-05-05] MEDS: 0.9 % Sodium Chloride 1,000 ML 100 ML IVCONT (12:44)
--- NOTE | 2020-05-05 13:34 | P.EN_ITS ---
Event Note Date of Service: 05/05/20 Event Note: I have added further Important information to my note of 05/03/19-- from what I have been able to get from [facility]--notes are scanned to patient's chart as well. Awaiting further information. Still feel this patient would be better served if she was to continue her foll owup with Dr. 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 Might be helpful with her hx of Bipolar 1 to have Psych see her and help us decide how valid her intention is or has been to stop substances--this was reason she was taken off the transplant list. She says no alcohol for 7 months. There was a ? episode around cocaine on one of the last admissions. She seems difficult to manage without multiple frequent adm for encephalopathy, etc.
[2020-05-05 16:30] LABS: Glucose, Whole Blood 152 mg/dL (60-115)
--- NOTE | 2020-05-05 17:03 | P.PNNP_ITS ---
Subjective Subjective Date of Service: 05/05/20 Interval history: No complaints. Seen and examined this AM. Events noted. All recent data reviewed. D/W Hospitalist Physical Exam Vital Signs: Vital Signs: Last Vital Signs Temp 97.6 F 05/05/20 16:00 Pulse 88 05/05/20 16:00 Resp 20 05/05/20 16:00 BP 118/69 05/05/20 16:00 Pulse Ox 100 05/05/20 16:00 Body Mass Index 32.5 Const: General: no acute distress Neck: Neck: Yes no JVD Resp: Auscultation: diminished lung sounds Cardio: Jugular venous distension: no JVD GI: Palpation (GI): Soft to palpation Neuro: General: moves all extremities Objective Data Labs CBC & Chem 7: 05/05/20 05:41 05/05/20 05:41 Labs: Laboratory Results - last 24 hr 05/04/20 05/05/20 05/05/20 20:32 05:41 05:41 WBC 11.8 H RBC 2.12 L Hgb 7.6 L Hct 22.1 L MCV 104.2 H MCH 35.8 H MCHC 34.4 RDW 18.8 H Plt Count 75 L MPV 11.2 Immature Gran % (Auto) 2.6 H Neut % (Auto) 77.3 H Lymph % (Auto) 7.8 L [place] % (Auto) 11.2 H Eos % (Auto) 0.7 Baso % (Auto) 0.4 Lymph # (Auto) 0.9 L [place] # (Auto) 1.3 H Eos # (Auto) 0.1 Baso # (Auto) 0.1 Abs Immat Gran (auto) 0.31 H Absolute Neuts (auto) 9.1 H Absolute Nucleated RBC 0.000 Nucleated RBC % (auto) 0.0 Sodium 124 L Potassium 4.5 Chloride 92 L Carbon Dioxide 25 Anion Gap 12 BUN 8 L Creatinine 0.67 Estim Creat Clear Calc 91.8 Estimated GFR > 60 POC Glucose 154 H Fasting Glucose 103 H Calcium 7.4 L Magnesium 2.1 GGT 26 Lactate Dehydrogenase 308 H C-Reactive Protein 1.11 H Albumin 2.0 L Prealbumin 4.0 L 05/05/20 05/05/20 05/05/20 08:02 11:06 16:27 WBC RBC Hgb Hct MCV MCH MCHC RDW Plt Count MPV Immature Gran % (Auto) Neut % (Auto) Lymph % (Auto) [place] % (Auto) Eos % (Auto) Baso % (Auto) Lymph # (Auto) [place] # (Auto) Eos # (Auto) Baso # (Auto) Abs Immat Gran (auto) Absolute Neuts (auto) Absolute Nucleated RBC Nucleated RBC % (auto) Sodium Potassium Chloride Carbon Dioxide Anion Gap BUN Creatinine Estim Creat Clear Calc Estimated GFR POC Glucose 135 H 178 H 152 H Fasting Glucose Calcium Magnesium GGT Lactate Dehydrogenase C-Reactive Protein Albumin Prealbumin Microbiology Microbiology Results: Microbiology 05/02/20 16:00 Blood - Venous Blood Culture - Preliminary No growth after 48 hours. 05/02/20 14:24 Blood - Venous Blood Culture - Preliminary No growth after 48 hours. Assessment & Plan Assessment and plan (1) Acute hyponatremia: Problem details: Hyponatremia likely multifactorial No Urea/NaCl tablets for now; Shall give 1 L 0.9 % NaCl today Shall avoid rapid correction of hyponatremia Shall closely follow up along with Medicine colleagues Status: Acute Time Spent With Patient Time: Total time spent is greater than 50% in coordination of care (as documented) at patient's floor/unit and/or counseling patient:
[2020-05-05] MEDS: Acetaminophen 325 MG TABLET PO (18:26)
[2020-05-05 20:34] LABS: Glucose, Whole Blood 108 mg/dL (60-115)
[2020-05-06] MEDS: Calcium Carbonate 750 MG TAB.CHEW PO (01:39)
[2020-05-06] MEDS: ondansetron HCL 4 MG/2 ML VIAL IVPUSH ×2 (01:39→22:05)
[2020-05-06] MEDS: oxyCODONE HCl Immed Release 5 MG TABLET 2.5 MG PO ×4 (02:29→21:50)
[2020-05-06 03:57] VITALS: BP 140/57; PULSE 78; RESP 19; TEMP 36.6; O2SAT 96
[2020-05-06] MEDS: Omeprazole 20 MG CAPSULE.DR PO ×2 (05:47→15:05)
[2020-05-06 06:33] LABS: MANUAL DIFF FLAG NO
[2020-05-06] MEDS: Acetaminophen 325 MG TABLET PO ×3 (06:39→22:14)
[2020-05-06 07:18] LABS: Basophils Absolute Auto 0.1 X10*3/uL (0.0-0.2); Basophils Percent Auto 0.4 % (0-2); Eosinophils Absolute Auto 0.1 X10*3/uL (0.0-0.4); Hematocrit 22.1 % (37-47); Hemoglobin 7.5 g/dl (12.0-16.0); Imm Gran Abs Auto 0.28 X10*3/uL (0.00-0.03); Imm Gran Pct Auto 2.5 % (0.0-0.4); Lymphocytes Absolute Auto 0.8 X10*3/uL (1.2-4.9); Lymphocytes Percent Auto 6.9 % (20-40); Mean Corpuscular HGB Conc 33.9 g/dl (31.0-35.0); Mean Corpuscular Hemoglobin 35.4 pg (27.0-33.0); Mean Corpuscular Volume 104.2 fL (80-98); Mean Platelet Volume 11.6 fL (9.4-12.3); Monocytes Absolute Auto 1.1 X10*3/uL (0.1-1.2); Monocytes Percent Auto 9.8 % (2-11); Neutrophils Percent Auto 79.4 % (45-73); Red Blood Count 2.12 X10*6/uL (4.20-5.50); Red Cell Distribution Width 18.5 % (11.0-16.0); White Blood Count 11.3 X10*3/uL (4.8-10.8)
[2020-05-06 07:21] LABS: Platelet Count 73 X10*3/uL (160-400)
[2020-05-06 07:25] LABS: Glucose, Whole Blood 138 mg/dL (60-115)
[2020-05-06 07:40] LABS: Anion Gap 10 (12-20); Blood Urea Nitrogen 9 mg/dL (9-16); Calcium 7.8 mg/dL (8.4-10.2); Carbon Dioxide 24 mmol/L (22-29); Chloride 90 mmol/L (96-108); Creatinine Clr Calc Pharmacy 100.8; Estimated Glomerular Filt Rate > 60; Glucose Fasting 145 mg/dL (60-99); Potassium 4.8 mmol/L (3.3-5.1); Sodium 119 mmol/L (135-145)
[2020-05-06 08:00] VITALS: BP 140/63; PULSE 88; RESP 16; TEMP 36.4; O2SAT 100
[2020-05-06] MEDS: 0.9 % Sodium Chloride Flush 3 ML SYRINGE IVFLUSH ×3 (08:53→21:54)
[2020-05-06] MEDS: Lactulose 20 GM/30 ML SOLUTION 30 GM PO ×3 (08:53→21:48)
[2020-05-06] MEDS: risperiDONE 1 MG TABLET PO ×2 (08:55→21:50)
[2020-05-06] MEDS: rifAXIMin 550 MG TABLET PO ×2 (08:55→21:50)
[2020-05-06] MEDS: Pyridoxine HCl (Vitamin B6) 50 MG TABLET PO (08:55)
[2020-05-06] MEDS: Folic Acid 1 MG TABLET PO (08:55)
[2020-05-06] MEDS: Thiamine HCL 100 MG TABLET PO (08:55)
[2020-05-06] MEDS: Cholecalciferol (Vitamin D3) 25 MCG TABLET 50 MCG PO (08:55)
[2020-05-06] MEDS: Magnesium Oxide 400 MG TABLET PO ×2 (08:55→21:50)
[2020-05-06] MEDS: Loratadine 10 MG TABLET PO (08:55)
[2020-05-06] MEDS: Baclofen 10 MG TABLET PO ×2 (08:55→21:50)
[2020-05-06] MEDS: Gabapentin 300 MG CAPSULE PO ×3 (08:55→21:50)
--- NOTE | 2020-05-06 10:22 | HO.PM.IMPN ---
Subjective Subjective Date of Service: 05/06/20 Interval History: abd pain Cardiovascular Cardiovascular: Reports no additional cardiovascular complaints Gastrointestinal Gastrointestinal: Reports no additional gastrointestinal complaints Physical Exam Vital Signs: Vital Signs: Last Vital Signs Temp 97.5 F 05/06/20 08:00 Pulse 88 05/06/20 08:00 Resp 16 05/06/20 08:00 BP 140/63 H 05/06/20 08:00 Pulse Ox 100 05/06/20 08:00 Body Mass Index 32.5 General: AO X 3, no acute distress, juandiced Resp: CTA bilateral CVS: S1,S2,RRR GI: soft, non tender, non distended Neuro: motor grossly intact Psych: appropriate affect Objective Data Current Medications Generic Name Dose Route Start Last Admin Trade Name Freq PRN Reason Stop Dose Admin Acetaminophen 325 mg 05/04/20 11:04 05/06/20 06:39 Acetaminophen 325 Mg Tablet PO 325 mg Q8H PRN Administration pain Albuterol Sulfate 2 puff 05/02/20 20:57 Albuterol Sulfate 90 Mcg 8 Gm Inhaler INHALE Q4H PRN Shortness Of Breath Baclofen 10 mg 05/02/20 21:00 05/06/20 08:55 Baclofen 10 Mg Tablet PO 10 mg BID LILLI Administration Calcium Carbonate 750 mg 05/02/20 20:57 05/06/20 01:39 Calcium Carbonate 750 Mg Tab.Chew PO 750 mg TID PRN Administration Heartburn Docusate Sodium 100 mg 05/02/20 20:57 Docusate Sodium 100 Mg Capsule PO BID PRN Constipation Fluticasone Propionate 2 puff 05/03/20 08:00 05/06/20 07:21 Fluticasone Propionate 250 Mcg Blst.W.Dev INHALE Not Given RBID LILLI Folic Acid 1 mg 05/03/20 09:00 05/06/20 08:55 Folic Acid 1 Mg Tablet PO 1 mg DAILY LILLI Administration Gabapentin 300 mg 05/02/20 21:00 05/06/20 08:55 Gabapentin 300 Mg Capsule PO 300 mg TID LILLI Administration Lactulose 30 gm 05/02/20 21:00 05/06/20 08:53 Lactulose 20 Gm/30 Ml Solution PO 30 gm TID LILLI Administration Loratadine 10 mg 05/03/20 09:00 05/06/20 08:55 Loratadine 10 Mg Tablet PO 10 mg DAILY LILLI Administration Magnesium Oxide 400 mg 05/02/20 21:00 05/06/20 08:55 Magnesium Oxide 400 Mg Tablet PO 400 mg BID LILLI Administration Omeprazole 20 mg 05/03/20 06:30 05/06/20 05:47 Omeprazole 20 Mg Capsule.Dr PO 20 mg BID@6230,1560 LILLI Administration Ondansetron HCl 4 mg 05/04/20 09:43 05/06/20 01:39 Ondansetron Hcl 4 Mg/2 Ml Vial IVPUSH 4 mg Q8H PRN Administration Nausea Oxycodone HCl 2.5 mg 05/04/20 12:10 05/06/20 08:55 Oxycodone Hcl Immed Release 5 Mg Tablet PO 2.5 mg Q6H PRN Administration pain Pyridoxine HCl 50 mg 05/03/20 09:00 05/06/20 08:55 Pyridoxine Hcl (Vitamin B6) 50 Mg Tablet PO 50 mg DAILY [facility] Administration Rifaximin 550 mg 05/02/20 21:00 05/06/20 08:55 Rifaximin 550 Mg Tablet PO 550 mg BID LILLI Administration Risperidone 1 mg 05/02/20 21:00 05/06/20 08:55 Risperidone 1 Mg Tablet PO 1 mg BID LILLI Administration Sodium Chloride 3 ml 05/03/20 00:00 05/06/20 08:53 0.9 % Sodium Chloride Flush 3 Ml Syringe IVFLUSH 3 ml QSHIFT [facility] Administration Sodium Chloride 1 gm 05/06/20 10:30 Sodium Chloride Tab 1 Gm Tablet PO 05/09/20 10:29 TID [facility] Thiamine HCl 100 mg 05/03/20 09:00 05/06/20 08:55 Thiamine Hcl 100 Mg Tablet PO 100 mg DAILY [facility] Administration Vitamin D 50 mcg 05/03/20 09:00 05/06/20 08:55 Cholecalciferol (Vitamin D3) 25 Mcg Tablet PO 50 mcg DAILY [facility] Administration Labs CBC & Chem 7: 05/06/20 06:16 05/06/20 06:16 Microbiology Microbiology Results: Microbiology 05/02/20 16:00 Blood - Venous Blood Culture - Preliminary No growth after 48 hours. 05/02/20 14:24 Blood - Venous Blood Culture - Preliminary No growth after 48 hours. Assessment and Plan (1) Chronic liver failure: Status: Acute Assessment and Plan: 54F presented wiith abd pain and hyponatremia hyponatremia, acute on chronic due to cirrhosis fluid restriction 1500 mL/d. received 1L NS 05/04/2020 and 05/05/2020 sodium has dropped to 119 will restart salt tablets 1tab tid for 3 days monitor bmp nephrology following GI bleeding declined LIZ, stool occult pending no further reported bleeding likely hemmeroidal, hgb stable liver cirrhosis with thrombocytopenia/anemia chronic. at baseline no encephalopathy continue lactulose, xifaxan chronic pain disorder - gabapentin, baclofen mood - continue risperidone hypoMg continue home replacement DM2 Metformin d/c on last admission last A1c only 4.1 follow POCs DVT ppx - mechanical devices Code - SCDs, avoid heparin
[2020-05-06] MEDS: Sodium Chloride Tab 1 GM TABLET PO ×3 (10:38→21:50)
[2020-05-06 11:15] LABS: Glucose, Whole Blood 191 mg/dL (60-115)
[2020-05-06 11:32] VITALS: BP 126/59; PULSE 86; RESP 16; TEMP 36.1; O2SAT 96
--- NOTE | 2020-05-06 12:13 | MHC.CM.PN ---
PER MULTIDISCIPLINARY ROUNDS NO PLAN FOR D/C DUE TO SODIUM CONTINUING TO TREND DOWN. PLAN CONTINUES TO BE HOME W/ RESUMPTION OF [facility] AND [facility] [employer] [facility] CASE MANAGEMENT AND N FOR PSYCHIATRIC SERVICES.
--- NOTE | 2020-05-06 13:05 | PM.PNNEP ---
Subjective Subjective Date of Service: 05/06/20 Interval history: Abdominal pain; Events noted; All recent data reviewed. D/W Dr Junior Physical Exam Vital Signs: Vital Signs: Last Vital Signs Temp 97.0 F 05/06/20 11:32 Pulse 86 05/06/20 11:32 Resp 16 05/06/20 11:32 BP 126/59 L 05/06/20 11:32 Pulse Ox 96 05/06/20 11:32 Body Mass Index 32.5 Const: General: No acute distress Neck: Neck: Yes no JVD Resp: Auscultation: diminished lung sounds Cardio: Rhythm: regular rhythm GI: Palpation (GI): Soft to palpation Neuro: General: moves all extremities Objective Data Labs CBC & Chem 7: 05/06/20 06:16 05/06/20 06:16 Labs: Laboratory Results - last 24 hr 05/05/20 05/05/20 05/06/20 16:27 20:29 06:16 WBC 11.3 H RBC 2.12 L Hgb 7.5 L Hct 22.1 L MCV 104.2 H MCH 35.4 H MCHC 33.9 RDW 18.5 H Plt Count 73 L MPV 11.6 Immature Gran % (Auto) 2.5 H Neut % (Auto) 79.4 H Lymph % (Auto) 6.9 L [place] % (Auto) 9.8 Eos % (Auto) 1.0 Baso % (Auto) 0.4 Lymph # (Auto) 0.8 L [place] # (Auto) 1.1 Eos # (Auto) 0.1 Baso # (Auto) 0.1 Abs Immat Gran (auto) 0.28 H Absolute Neuts (auto) 9.0 H Absolute Nucleated RBC 0.000 Nucleated RBC % (auto) 0.0 Sodium Potassium Chloride Carbon Dioxide Anion Gap BUN Creatinine Estim Creat Clear Calc Estimated GFR POC Glucose 152 H 108 Fasting Glucose Calcium 05/06/20 05/06/20 05/06/20 06:16 07:13 11:10 WBC RBC Hgb Hct MCV MCH MCHC RDW Plt Count MPV Immature Gran % (Auto) Neut % (Auto) Lymph % (Auto) [place] % (Auto) Eos % (Auto) Baso % (Auto) Lymph # (Auto) [place] # (Auto) Eos # (Auto) Baso # (Auto) Abs Immat Gran (auto) Absolute Neuts (auto) Absolute Nucleated RBC Nucleated RBC % (auto) Sodium 119 L* Potassium 4.8 Chloride 90 L Carbon Dioxide 24 Anion Gap 10 L BUN 9 Creatinine 0.61 Estim Creat Clear Calc 100.8 Estimated GFR > 60 POC Glucose 138 H 191 H Fasting Glucose 145 H D Calcium 7.8 L Microbiology Microbiology Results: Microbiology 05/02/20 16:00 Blood - Venous Blood Culture - Preliminary No growth after 48 hours. 05/02/20 14:24 Blood - Venous Blood Culture - Preliminary No growth after 48 hours. Assessment & Plan Assessment and plan (1) Acute hyponatremia: Problem details: Hyponatremia likely multifactorial Shall start NaCl 1 Gram PO tid X 3 days Shall avoid rapid correction of hyponatremia; Labs AM Shall closely follow up along with Medicine colleagues Status: Acute Time Spent With Patient Time: Total time spent is greater than 50% in coordination of care (as documented) at patient's floor/unit and/or counseling patient:
[2020-05-06 15:43] VITALS: BP 122/62; PULSE 88; RESP 16; TEMP 36.7; O2SAT 98
[2020-05-06 16:38] LABS: Glucose, Whole Blood 176 mg/dL (60-115)
[2020-05-06 18:55] VITALS: BP 125/67; PULSE 92; RESP 17; TEMP 36.6; O2SAT 99
[2020-05-06 20:40] LABS: Glucose, Whole Blood 136 mg/dL (60-115)
[2020-05-06 23:34] VITALS: BP 109/51; PULSE 95; RESP 18; TEMP 36; O2SAT 100
[2020-05-07] VITALS (8 sets, daily range): BP systolic 102–143; BP diastolic 45–61; PULSE 81–100; RESP 17–18; TEMP 35.8–36.5; O2SAT 99–100
[2020-05-07] MEDS: Albuterol Sulfate 90 MCG 8 GM INHALER 2 PUFF INHALE ×2 (00:28→12:36)
[2020-05-07] MEDS: oxyCODONE HCl Immed Release 5 MG TABLET PO (02:29)
[2020-05-07] MEDS: oxyCODONE HCl Immed Release 5 MG TABLET 2.5 MG PO ×3 (05:22→21:05)
[2020-05-07] MEDS: Omeprazole 20 MG CAPSULE.DR PO ×2 (05:40→16:32)
[2020-05-07 06:59] LABS: Basophils Percent Auto 0.5 % (0-2); MANUAL DIFF FLAG SCAN; PLT CLUMP 1; Red Blood Count 2.14 X10*6/uL (4.20-5.50); SCAN SMEAR FLAG 1
[2020-05-07 07:02] LABS: Basophils Absolute Auto 0.1 X10*3/uL (0.0-0.2); Eosinophils Absolute Auto 0.2 X10*3/uL (0.0-0.4); Eosinophils Percent Auto 1.6 % (0-4); Hematocrit 22.4 % (37-47); Hemoglobin 7.5 g/dl (12.0-16.0); Imm Gran Abs Auto 0.31 X10*3/uL (0.00-0.03); Imm Gran Pct Auto 2.8 % (0.0-0.4); Mean Corpuscular HGB Conc 33.5 g/dl (31.0-35.0); Mean Corpuscular Volume 104.7 fL (80-98); Mean Platelet Volume 11.2 fL (9.4-12.3); Monocytes Percent Auto 9.4 % (2-11); Neutrophils Absolute Auto 8.5 X10*3/uL (2.0-8.3); Neutrophils Percent Auto 76.7 % (45-73); Red Cell Distribution Width 18.9 % (11.0-16.0); White Blood Count 11.1 X10*3/uL (4.8-10.8)
[2020-05-07 07:12] LABS: Platelet Count 75 X10*3/uL (160-400)
[2020-05-07 07:13] LABS: SLIDE REVIEW VERIFIED
[2020-05-07 07:34] LABS: Anion Gap 11 (12-20); Blood Urea Nitrogen 10 mg/dL (9-16); Calcium 8.1 mg/dL (8.4-10.2); Carbon Dioxide 23 mmol/L (22-29); Chloride 91 mmol/L (96-108); Creatinine Clr Calc Pharmacy 97.6; Estimated Glomerular Filt Rate > 60; Glucose Fasting 196 mg/dL (60-99); Sodium 120 mmol/L (135-145)
[2020-05-07] MEDS: Fluticasone Propionate 250 MCG BLST.W.DEV 2 PUFF INHALE ×2 (08:19→19:49)
[2020-05-07 08:30] LABS: Glucose, Whole Blood 128 mg/dL (60-115)
[2020-05-07] MEDS: Cholecalciferol (Vitamin D3) 25 MCG TABLET 50 MCG PO (09:27)
[2020-05-07] MEDS: rifAXIMin 550 MG TABLET PO ×2 (09:28→21:05)
[2020-05-07] MEDS: Sodium Chloride Tab 1 GM TABLET PO ×2 (09:28→14:50)
[2020-05-07] MEDS: Baclofen 10 MG TABLET PO ×2 (09:28→21:05)
[2020-05-07] MEDS: Thiamine HCL 100 MG TABLET PO (09:28)
[2020-05-07] MEDS: Pyridoxine HCl (Vitamin B6) 50 MG TABLET PO (09:28)
[2020-05-07] MEDS: risperiDONE 1 MG TABLET PO ×2 (09:28→21:05)
[2020-05-07] MEDS: Loratadine 10 MG TABLET PO (09:28)
[2020-05-07] MEDS: Gabapentin 300 MG CAPSULE PO ×3 (09:28→21:05)
[2020-05-07] MEDS: Magnesium Oxide 400 MG TABLET PO ×2 (09:28→21:05)
[2020-05-07] MEDS: Lactulose 20 GM/30 ML SOLUTION 30 GM PO ×3 (09:28→21:06)
[2020-05-07] MEDS: 0.9 % Sodium Chloride Flush 3 ML SYRINGE IVFLUSH ×3 (09:28→21:07)
[2020-05-07] MEDS: Folic Acid 1 MG TABLET PO (09:28)
[2020-05-07] MEDS: Acetaminophen 325 MG TABLET PO (10:37)
[2020-05-07 11:31] LABS: Glucose, Whole Blood 136 mg/dL (60-115)
--- NOTE | 2020-05-07 12:07 | P.PNIM_ITS ---
Subjective Subjective Date of Service: 05/07/20 Interval History: abd pain Cardiovascular Cardiovascular: Reports no additional cardiovascular complaints Respiratory Respiratory: Reports no additional respiratory complaints Physical Exam Vital Signs: Vital Signs: Last Vital Signs Temp 97.5 F 05/07/20 11:39 Pulse 89 05/07/20 11:39 Resp 17 05/07/20 11:39 BP 102/55 L 05/07/20 11:39 Pulse Ox 100 05/07/20 11:39 Body Mass Index 32.5 General: AO X 3, no acute distress, juandiced Resp: CTA bilateral CVS: S1,S2,RRR GI: soft, non tender, non distended Neuro: motor grossly intact Psych: appropriate affect Objective Data Current Medications Generic Name Dose Route Start Last Admin Trade Name Freq PRN Reason Stop Dose Admin Acetaminophen 325 mg 05/07/20 10:17 05/07/20 10:37 Acetaminophen 325 Mg Tablet PO 325 mg Q6H PRN Administration pain Albuterol Sulfate 2 puff 05/02/20 20:57 05/07/20 00:28 Albuterol Sulfate 90 Mcg 8 Gm Inhaler INHALE 2 puff Q4H PRN Administration Shortness Of Breath Baclofen 10 mg 05/02/20 21:00 05/07/20 09:28 Baclofen 10 Mg Tablet PO 10 mg BID LILLI Administration Calcium Carbonate 750 mg 05/02/20 20:57 05/06/20 01:39 Calcium Carbonate 750 Mg Tab.Chew PO 750 mg TID PRN Administration Heartburn Docusate Sodium 100 mg 05/02/20 20:57 Docusate Sodium 100 Mg Capsule PO BID PRN Constipation Fluticasone Propionate 2 puff 05/03/20 08:00 05/07/20 08:19 Fluticasone Propionate 250 Mcg Blst.W.Dev INHALE 2 puff RBID LILLI Administration Folic Acid 1 mg 05/03/20 09:00 05/07/20 09:28 Folic Acid 1 Mg Tablet PO 1 mg DAILY LILLI Administration Gabapentin 300 mg 05/02/20 21:00 05/07/20 09:28 Gabapentin 300 Mg Capsule PO 300 mg TID LILLI Administration Lactulose 30 gm 05/02/20 21:00 05/07/20 09:28 Lactulose 20 Gm/30 Ml Solution PO 30 gm TID LILLI Administration Loratadine 10 mg 05/03/20 09:00 05/07/20 09:28 Loratadine 10 Mg Tablet PO 10 mg DAILY LILLI Administration Magnesium Oxide 400 mg 05/02/20 21:00 05/07/20 09:28 Magnesium Oxide 400 Mg Tablet PO 400 mg BID LILLI Administration Omeprazole 20 mg 05/03/20 06:30 05/07/20 05:40 Omeprazole 20 Mg Capsule.Dr PO 20 mg BID@0630,1630 LILLI Administration Ondansetron HCl 4 mg 05/04/20 09:43 05/06/20 22:05 Ondansetron Hcl 4 Mg/2 Ml Vial IVPUSH 4 mg Q8H PRN Administration Nausea Oxycodone HCl 2.5 mg 05/04/20 12:10 05/07/20 05:22 Oxycodone Hcl Immed Release 5 Mg Tablet PO 2.5 mg Q6H PRN Administration pain Pyridoxine HCl 50 mg 05/03/20 09:00 05/07/20 09:28 Pyridoxine Hcl (Vitamin B6) 50 Mg Tablet PO 50 mg DAILY [facility] Administration Rifaximin 550 mg 05/02/20 21:00 05/07/20 09:28 Rifaximin 550 Mg Tablet PO 550 mg BID LILLI Administration Risperidone 1 mg 05/02/20 21:00 05/07/20 09:28 Risperidone 1 Mg Tablet PO 1 mg BID LILLI Administration Sodium Chloride 3 ml 05/03/20 00:00 05/07/20 09:28 0.9 % Sodium Chloride Flush 3 Ml Syringe IVFLUSH 3 ml QSHIFT [facility] Administration Sodium Chloride 1 gm 05/06/20 10:30 05/07/20 09:28 Sodium Chloride Tab 1 Gm Tablet PO 05/09/20 10:29 1 gm TID [facility] Administration Thiamine HCl 100 mg 05/03/20 09:00 05/07/20 09:28 Thiamine Hcl 100 Mg Tablet PO 100 mg DAILY [facility] Administration Vitamin D 50 mcg 05/03/20 09:00 05/07/20 09:27 Cholecalciferol (Vitamin D3) 25 Mcg Tablet PO 50 mcg DAILY LILLI Administration Labs CBC & Chem 7: 05/07/20 06:10 05/07/20 06:10 Microbiology Microbiology Results: Microbiology 05/02/20 16:00 Blood - Venous Blood Culture - Preliminary No growth after 48 hours. 05/02/20 14:24 Blood - Venous Blood Culture - Preliminary No growth after 48 hours. Assessment and Plan (1) Acute hyponatremia: Problem details: Hyponatremia likely multifactorial Shall start NaCl 1 Gram PO tid X 3 days Shall avoid rapid correction of hyponatremia; Labs AM Shall closely follow up along with Medicine colleagues Status: Acute Assessment and Plan: 54F presented wiith abd pain and hyponatremia hyponatremia, acute on chronic due to cirrhosis fluid restriction 1500 mL/d. received 1L NS 05/04/2020 and 05/05/2020 sodium now 120 restarted salt tablets 1tab tid for 3 days monitor bmp nephrology following GI bleeding declined LIZ, stool occult pending no further reported bleeding likely hemmeroidal, hgb stable liver cirrhosis with thrombocytopenia/anemia chronic. at baseline no encephalopathy continue lactulose, xifaxan chronic pain disorder - gabapentin, baclofen mood - continue risperidone hypoMg continue home replacement DM2 Metformin d/c on last admission last A1c only 4.1 follow POCs DVT ppx - mechanical devices Code - SCDs, avoid heparin
--- NOTE | 2020-05-07 16:32 | P.PNNP_ITS ---
Subjective Subjective Date of Service: 05/07/20 Interval history: In good spirits Conversational Laying flat no orthopnea Little insight into overall health She has a few open containers of clear liquids around her bed. She is trying to reduce fluid intake, but she says she is thirsty. Physical Exam Vital Signs: Vital Signs: Last Vital Signs Temp 97 F 05/07/20 15:30 Pulse 100 05/07/20 15:30 Resp 18 05/07/20 15:30 BP 113/54 L 05/07/20 15:30 Pulse Ox 100 05/07/20 15:30 Body Mass Index 32.5 Const: General: cooperative and no acute distress Orientation/co nsciousness: oriented to person, oriented to place and oriented to time HENMT: Head: Yes normal to inspection and Yes normocephalic Mouth: moist mucous membranes Resp: Effort & Inspection: normal respiratory effort Auscultation: clear to auscultation bilaterally Cardio: Jugular venous distension: no JVD Rate: regular rate Rhythm: regular rhythm Heart sounds: S1 normal heart sound present and S2 normal heart sound present GI: Palpation (GI): Soft to palpation Neuro: General: oriented to person, oriented to place and oriented to time Extrem: General: Yes full ROM and No edema Objective Data Labs CBC & Chem 7: 05/07/20 06:10 05/07/20 06:10 Labs: Laboratory Results - last 24 hr 05/06/20 05/06/20 05/07/20 16:33 20:35 06:10 WBC 11.1 H RBC 2.14 L Hgb 7.5 L Hct 22.4 L MCV 104.7 H MCH 35.0 H MCHC 33.5 RDW 18.9 H Plt Count 75 L MPV 11.2 Immature Gran % (Auto) 2.8 H Neut % (Auto) 76.7 H Lymph % (Auto) 9.0 L [place] % (Auto) 9.4 Eos % (Auto) 1.6 Baso % (Auto) 0.5 Lymph # (Auto) 1.0 L [place] # (Auto) 1.0 Eos # (Auto) 0.2 Baso # (Auto) 0.1 Abs Immat Gran (auto) 0.31 H Absolute Neuts (auto) 8.5 H Absolute Nucleated RBC 0.000 Nucleated RBC % (auto) 0.0 Smear Tech's Comments VERIFIED Sodium Potassium Chloride Carbon Dioxide Anion Gap BUN Creatinine Estim Creat Clear Calc Estimated GFR POC Glucose 176 H 136 H Fasting Glucose Calcium 05/07/20 05/07/20 05/07/20 06:10 08:24 11:12 WBC RBC Hgb Hct MCV MCH MCHC RDW Plt Count MPV Immature Gran % (Auto) Neut % (Auto) Lymph % (Auto) [place] % (Auto) Eos % (Auto) Baso % (Auto) Lymph # (Auto) [place] # (Auto) Eos # (Auto) Baso # (Auto) Abs Immat Gran (auto) Absolute Neuts (auto) Absolute Nucleated RBC Nucleated RBC % (auto) Smear Tech's Comments Sodium 120 L* Potassium 5.0 Chloride 91 L Carbon Dioxide 23 Anion Gap 11 L BUN 10 Creatinine 0.63 Estim Creat Clear Calc 97.6 Estimated GFR > 60 POC Glucose 128 H 136 H Fasting Glucose 196 H D Calcium 8.1 L Microbiology Microbiology Results: Microbiology 05/02/20 14:24 Blood - Venous Blood Culture - Final No growth after 5 days. 05/02/20 16:00 Blood - Venous Blood Culture - Preliminary No growth after 48 hours. Assessment & Plan Assessment and plan (1) Chronic hyponatremia: Status: Acute (2) Acute hyponatremia: Problem details: Hyponatremia likely multifactorial due to hypoosmolar intake diluting her serum Na down & chronic cirrhotic state. Serum Na on presentation 122-124 until 05/05/20. Then Serum Na turning down to 119 -> 120meq/L by 05/07/20 Nikky <20 [address]sm 265 Overall she has a combination hypovolemic (Nikky <20 without hypervoemia on exam) and tea-toast (Uosm low) syndromes. Status: Acute Assessment and Plan: Plan: - Increase NaCl tabs to 2g TID - OK to give 1 liter of 100cc/hr of saline x1 - Fluid restrict, make NPO if needed - Encourage high solute intake like ENSURES (those dont count towards fluid restriction) - osmolar load - q6-8 Na levels until she improves (3) Chronic liver failure: Status: Acute (4) Advanced hepatic cirrhosis: Status: Acute Time Spent With Patient Time: Total time spent is greater than 50% in coordination of care (as documented) at patient's floor/unit and/or counseling patient:
[2020-05-07 16:44] LABS: Glucose, Whole Blood 132 mg/dL (60-115)
[2020-05-07 20:24] LABS: Glucose, Whole Blood 117 mg/dL (60-115)
[2020-05-07] MEDS: Sodium Chloride Tab 1 GM TABLET 2 GM PO (21:05)
[2020-05-08] VITALS (12 sets, daily range): BP systolic 103–148; BP diastolic 44–66; PULSE 66–97; RESP 16–20; TEMP 36.2–37.2; O2SAT 96–100
[2020-05-08] MEDS: Albuterol Sulfate 90 MCG 8 GM INHALER 2 PUFF INHALE ×4 (00:08→19:39)
[2020-05-08] MEDS: oxyCODONE HCl Immed Release 5 MG TABLET 2.5 MG PO ×4 (03:23→22:41)
[2020-05-08] MEDS: Omeprazole 20 MG CAPSULE.DR PO ×2 (05:49→15:10)
[2020-05-08 07:14] LABS: MANUAL DIFF FLAG SCAN; PLT CLUMP 1; Red Cell Distribution Width 19.3 % (11.0-16.0); SCAN SMEAR FLAG 1
[2020-05-08 07:16] LABS: Basophils Absolute Auto 0.1 X10*3/uL (0.0-0.2); Basophils Percent Auto 0.4 % (0-2); Eosinophils Absolute Auto 0.1 X10*3/uL (0.0-0.4); Eosinophils Percent Auto 1.1 % (0-4); Imm Gran Abs Auto 0.32 X10*3/uL (0.00-0.03); Imm Gran Pct Auto 2.6 % (0.0-0.4); Lymphocytes Absolute Auto 1.1 X10*3/uL (1.2-4.9); Lymphocytes Percent Auto 8.9 % (20-40); Mean Corpuscular Hemoglobin 36.1 pg (27.0-33.0); Mean Corpuscular Volume 106.3 fL (80-98); Mean Platelet Volume 11.3 fL (9.4-12.3); Monocytes Absolute Auto 1.4 X10*3/uL (0.1-1.2); Monocytes Percent Auto 11.3 % (2-11); Neutrophils Absolute Auto 9.4 X10*3/uL (2.0-8.3); Neutrophils Percent Auto 75.7 % (45-73); Red Blood Count 1.91 X10*6/uL (4.20-5.50); White Blood Count 12.5 X10*3/uL (4.8-10.8)
[2020-05-08] MEDS: Fluticasone Propionate 250 MCG BLST.W.DEV 2 PUFF INHALE ×2 (07:22→19:39)
[2020-05-08 07:44] LABS: Hemoglobin 6.9 g/dl (12.0-16.0)
[2020-05-08 07:45] LABS: Hematocrit 20.3 % (37-47); Platelet Count 81 X10*3/uL (160-400)
[2020-05-08 07:46] LABS: Anion Gap 12 (12-20); Blood Urea Nitrogen 10 mg/dL (9-16); Calcium 8.1 mg/dL (8.4-10.2); Carbon Dioxide 23 mmol/L (22-29); Chloride 92 mmol/L (96-108); Estimated Glomerular Filt Rate > 60; Glucose Fasting 104 mg/dL (60-99); Potassium 5.3 mmol/L (3.3-5.1); Sodium 122 mmol/L (135-145)
[2020-05-08 07:49] LABS: SLIDE REVIEW VERIFIED
[2020-05-08] MEDS: Magnesium Oxide 400 MG TABLET PO ×2 (08:05→21:05)
[2020-05-08] MEDS: rifAXIMin 550 MG TABLET PO ×2 (08:05→21:04)
[2020-05-08] MEDS: Loratadine 10 MG TABLET PO (08:05)
[2020-05-08] MEDS: Thiamine HCL 100 MG TABLET PO (08:05)
[2020-05-08] MEDS: Sodium Chloride Tab 1 GM TABLET 2 GM PO ×3 (08:05→21:05)
[2020-05-08] MEDS: Gabapentin 300 MG CAPSULE PO ×3 (08:05→21:05)
[2020-05-08] MEDS: Baclofen 10 MG TABLET PO ×2 (08:05→21:05)
[2020-05-08] MEDS: risperiDONE 1 MG TABLET PO ×2 (08:05→21:05)
[2020-05-08] MEDS: Pyridoxine HCl (Vitamin B6) 50 MG TABLET PO (08:05)
[2020-05-08] MEDS: Folic Acid 1 MG TABLET PO (08:05)
[2020-05-08] MEDS: Cholecalciferol (Vitamin D3) 25 MCG TABLET 50 MCG PO (08:05)
[2020-05-08] MEDS: Lactulose 20 GM/30 ML SOLUTION 30 GM PO ×3 (08:06→21:03)
[2020-05-08] MEDS: 0.9 % Sodium Chloride Flush 3 ML SYRINGE IVFLUSH (08:06)
[2020-05-08] MEDS: ondansetron HCL 4 MG/2 ML VIAL IVPUSH ×2 (08:15→17:46)
[2020-05-08 08:18] LABS: Glucose, Whole Blood 121 mg/dL (60-115)
--- NOTE | 2020-05-08 10:29 | HO.PM.IMPN ---
Subjective Subjective Date of Service: 05/08/20 Interval History: no complainyts Cardiovascular Cardiovascular: Reports no additional cardiovascular complaints Gastrointestinal Gastrointestinal: Reports no additional gastrointestinal complaints Physical Exam Vital Signs: Vital Signs: Last Vital Signs Temp 97.9 F 05/08/20 07:27 Pulse 66 05/08/20 07:27 Resp 18 05/08/20 07:27 BP 111/44 L 05/08/20 07:27 Pulse Ox 96 05/08/20 07:27 Body Mass Index 32.5 General: AO X 3, no acute distress, juandiced Resp: CTA bilateral CVS: S1,S2,RRR GI: soft, non tender, non distended Neuro: motor grossly intact Psych: appropriate affect Objective Data Current Medications Generic Name Dose Route Start Last Admin Trade Name Freq PRN Reason Stop Dose Admin Acetaminophen 325 mg 05/07/20 10:17 05/07/20 10:37 Acetaminophen 325 Mg Tablet PO 325 mg Q6H PRN Administration pain Albuterol Sulfate 2 puff 05/02/20 20:57 05/08/20 07:23 Albuterol Sulfate 90 Mcg 8 Gm Inhaler INHALE 2 puff Q4H PRN Administration Shortness Of Breath Baclofen 10 mg 05/02/20 21:00 05/08/20 08:05 Baclofen 10 Mg Tablet PO 10 mg BID LILLI Administration Calcium Carbonate 750 mg 05/02/20 20:57 05/06/20 01:39 Calcium Carbonate 750 Mg Tab.Chew PO 750 mg TID PRN Administration Heartburn Docusate Sodium 100 mg 05/02/20 20:57 Docusate Sodium 100 Mg Capsule PO BID PRN Constipation Fluticasone Propionate 2 puff 05/03/20 08:00 05/08/20 07:22 Fluticasone Propionate 250 Mcg Blst.W.Dev INHALE 2 puff RBID LILLI Administration Folic Acid 1 mg 05/03/20 09:00 05/08/20 08:05 Folic Acid 1 Mg Tablet PO 1 mg DAILY LILLI Administration Gabapentin 300 mg 05/02/20 21:00 05/08/20 08:05 Gabapentin 300 Mg Capsule PO 300 mg TID LILLI Administration Lactulose 30 gm 05/02/20 21:00 05/08/20 08:06 Lactulose 20 Gm/30 Ml Solution PO 30 gm TID LILLI Administration Loratadine 10 mg 05/03/20 09:00 05/08/20 08:05 Loratadine 10 Mg Tablet PO 10 mg DAILY LILLI Administration Magnesium Oxide 400 mg 05/02/20 21:00 05/08/20 08:05 Magnesium Oxide 400 Mg Tablet PO 400 mg BID LILLI Administration Omeprazole 20 mg 05/03/20 06:30 05/08/20 05:49 Omeprazole 20 Mg Capsule.Dr PO 20 mg BID@3154,3760 LILLI Administration Ondansetron HCl 4 mg 05/04/20 09:43 05/08/20 08:15 Ondansetron Hcl 4 Mg/2 Ml Vial IVPUSH 4 mg Q8H PRN Administration Nausea Oxycodone HCl 2.5 mg 05/04/20 12:10 05/08/20 10:07 Oxycodone Hcl Immed Release 5 Mg Tablet PO 2.5 mg Q6H PRN Administration pain Pyridoxine HCl 50 mg 05/03/20 09:00 05/08/20 08:05 Pyridoxine Hcl (Vitamin B6) 50 Mg Tablet PO 50 mg DAILY [facility]ILLI Administration Rifaximin 550 mg 05/02/20 21:00 05/08/20 08:05 Rifaximin 550 Mg Tablet PO 550 mg BID LILLI Administration Risperidone 1 mg 05/02/20 21:00 05/08/20 08:05 Risperidone 1 Mg Tablet PO 1 mg BID LILLI Administration Sodium Chloride 3 ml 05/03/20 00:00 05/08/20 08:06 0.9 % Sodium Chloride Flush 3 Ml Syringe IVFLUSH 3 ml QSHIFT [facility] Administration Sodium Chloride 2 gm 05/07/20 21:00 05/08/20 08:05 Sodium Chloride Tab 1 Gm Tablet PO 05/10/20 20:59 2 gm TID LILLI Administration Thiamine HCl 100 mg 05/03/20 09:00 05/08/20 08:05 Thiamine Hcl 100 Mg Tablet PO 100 mg DAILY LILLI Administration Vitamin D 50 mcg 05/03/20 09:00 05/08/20 08:05 Cholecalciferol (Vitamin D3) 25 Mcg Tablet PO 50 mcg DAILY LILLI Administration Labs CBC & Chem 7: 05/08/20 06:00 05/08/20 06:00 Microbiology Microbiology Results: Microbiology 05/02/20 16:00 Blood - Venous Blood Culture - Final No growth after 5 days. 05/02/20 14:24 Blood - Venous Blood Culture - Final No growth after 5 days. Assessment and Plan (1) Acute hyponatremia: Problem details: Hyponatremia likely multifactorial due to hypoosmolar intake diluting her serum Na down & chronic cirrhotic state. Serum Na on presentation 122-124 until 05/05/20. Then Serum Na turning down to 119 -> 120meq/L by 05/07/20 Nikky <20 [address] 265 Overall she has a combination hypovolemic (Nikky <20 without hypervoemia on exam) and tea-toast (Uosm low) syndromes. Status: Acute Assessment and Plan: 54F presented wiith abd pain and hyponatremia hyponatremia, acute on chronic due to cirrhosis fluid restriction 1500 mL/d. received 1L NS 05/04/2020 and 05/05/2020 sodium now 122 restarted salt tablets increased to 2tab tid monitor bmp nephrology following GI bleeding declined LIZ, stool occult pending no further reported bleeding likely hemmeroidal, hgb down to 6.9 today, likely combination of chronic inflammation and slow bleed, will transfuse one unti prbc, monitor liver cirrhosis with thrombocytopenia/anemia chronic. at baseline no encephalopathy continue lactulose, xifaxan chronic pain disorder - gabapentin, baclofen mood - continue risperidone hypoMg continue home replacement DM2 Metformin d/c on last admission last A1c only 4.1 follow POCs DVT ppx - mechanical devices Code - SCDs, avoid heparin
[2020-05-08 11:30] LABS: Glucose, Whole Blood 185 mg/dL (60-115)
--- NOTE | 2020-05-08 14:22 | PM.PNNEP ---
Subjective Subjective Date of Service: 05/08/20 Interval history: No complaints Na improving slowly Physical Exam Vital Signs: Vital Signs: Last Vital Signs Temp 98.3 F 05/08/20 13:35 Pulse 83 05/08/20 13:35 Resp 16 05/08/20 13:35 BP 136/60 05/08/20 13:35 Pulse Ox 100 05/08/20 12:00 Body Mass Index 32.5 Const: General: cooperative and no acute distress; No acute distress Orientation/consciousness: oriented to person, oriented to place and oriented to time HENMT: Head: Yes normal to inspection and Yes normocephalic Mouth: moist mucous membranes Neck: Neck: Yes supple and Yes no JVD Resp: Effort & Inspection: normal respiratory effort Auscultation: clear to auscultation bilaterally and diminished lung sounds Cardio: Jugular venous distension: no JVD Rate: regular rate Rhythm: regular rhythm Heart sounds: S1 normal heart sound present and S2 normal heart sound present GI: Palpation (GI): Soft to palpation Neuro: General: oriented to person, oriented to place, oriented to time and moves all extremities Extrem: General: Yes full ROM and No edema Objective Data Labs CBC & Chem 7: 05/08/20 06:00 05/08/20 06:00 Labs: Laboratory Results - last 24 hr 05/07/20 05/07/20 05/08/20 16:39 20: 06:00 WBC 12.5 H RBC 1.91 L Hgb 6.9 L* Hct 20.3 L* MCV 106.3 H MCH 36.1 H MCHC 34.0 RDW 19.3 H Plt Count 81 L MPV 11.3 Immature Gran % (Auto) 2.6 H Neut % (Auto) 75.7 H Lymph % (Auto) 8.9 L [place] % (Auto) 11.3 H Eos % (Auto) 1.1 Baso % (Auto) 0.4 Lymph # (Auto) 1.1 L [place] # (Auto) 1.4 H Eos # (Auto) 0.1 Baso # (Auto) 0.1 Abs Immat Gran (auto) 0.32 H Absolute Neuts (auto) 9.4 H Absolute Nucleated RBC 0.000 Nucleated RBC % (auto) 0.0 Smear Tech's Comments VERIFIED Sodium Potassium Chloride Carbon Dioxide Anion Gap BUN Creatinine Estim Creat Clear Calc Estimated GFR POC Glucose 132 H 117 H Fasting Glucose Calcium Blood Type Antibody Screen Crossmatch 05/08/20 05/08/20 05/08/20 06:00 07:23 08:37 WBC RBC Hgb Hct MCV MCH MCHC RDW Plt Count MPV Immature Gran % (Auto) Neut % (Auto) Lymph % (Auto) [place] % (Auto) Eos % (Auto) Baso % (Auto) Lymph # (Auto) [place] # (Auto) Eos # (Auto) Baso # (Auto) Abs Immat Gran (auto) Absolute Neuts (auto) Absolute Nucleated RBC Nucleated RBC % (auto) Smear Tech's Comments Sodium 122 L Potassium 5.3 H Chloride 92 L Carbon Dioxide 23 Anion Gap 12 BUN 10 Creatinine 0.58 Estim Creat Clear Calc 106.0 Estimated GFR > 60 POC Glucose 121 H Fasting Glucose 104 H D Calcium 8.1 L Blood Type A Negative Antibody Screen NEGATIVE Crossmatch See Detail 05/08/20 11:23 WBC RBC Hgb Hct MCV MCH MCHC RDW Plt Count MPV Immature Gran % (Auto) Neut % (Auto) Lymph % (Auto) [place] % (Auto) Eos % (Auto) Baso % (Auto) Lymph # (Auto) [place] # (Auto) Eos # (Auto) Baso # (Auto) Abs Immat Gran (auto) Absolute Neuts (auto) Absolute Nucleated RBC Nucleated RBC % (auto) Smear Tech's Comments Sodium Potassium Chloride Carbon Dioxide Anion Gap BUN Creatinine Estim Creat Clear Calc Estimated GFR POC Glucose 185 H Fasting Glucose Calcium Blood Type Antibody Screen Crossmatch Microbiology Microbiology Results: Microbiology 05/02/20 16:00 Blood - Venous Blood Culture - Final No growth after 5 days. 05/02/20 14:24 Blood - Venous Blood Culture - Final No growth after 5 days. Assessment & Plan Assessment and plan (1) Chronic hyponatremia: Status: Acute (2) Acute hyponatremia: Problem details: Hyponatremia likely multifactorial due to hypoosmolar intake diluting her serum Na down & chronic cirrhotic state. Serum Na on presentation 122-124 until 05/05/20. Then Serum Na turning down to 119 -> 120meq/L by 05/07/20 Nikky <20 [address] 265 Overall she has a combination hypovolemic (Nikky <20 without hypervoemia on exam) and tea-toast (Uosm low) syndromes. Na improved in last 24 hours with volume interventions. Status: Acute Assessment and Plan: Plan: - c/w increased NaCl tabs to 2g TID - once again give 1 liter of 100cc/hr of saline x1 (this will help with the mild hyperK too) - Water restrict - Encourage high solute intake like ENSURES (those dont count towards fluid restriction) - osmolar load - q6-8 Na levels until she improves (3) Chronic liver failure: Status: Acute (4) Advanced hepatic cirrhosis: Status: Acute Time Spent With Patient Time: Total time spent is greater than 50% in coordination of care (as documented) at patient's floor/unit and/or counseling patient:
[2020-05-08] MEDS: Calcium Carbonate 750 MG TAB.CHEW PO (15:10)
[2020-05-08] MEDS: Acetaminophen 325 MG TABLET PO ×2 (15:11→21:04)
[2020-05-08 16:45] LABS: Glucose, Whole Blood 152 mg/dL (60-115)
[2020-05-08] MEDS: 0.9 % Sodium Chloride 1,000 ML 100 ML IVCONT (17:46)
[2020-05-08 20:53] LABS: Glucose, Whole Blood 123 mg/dL (60-115)
[2020-05-09] VITALS (12 sets, daily range): BP systolic 111–168; BP diastolic 50–80; PULSE 84–96; RESP 9–20; TEMP 35.7–36.8; O2SAT 97–100
[2020-05-09 06:12] LABS: Eosinophils Percent Auto 1.1 % (0-4); MANUAL DIFF FLAG SCAN; PLT CLUMP 1; SCAN SMEAR FLAG 1
[2020-05-09 06:13] LABS: Basophils Percent Auto 0.3 % (0-2); Eosinophils Absolute Auto 0.2 X10*3/uL (0.0-0.4); Imm Gran Abs Auto 0.37 X10*3/uL (0.00-0.03); Imm Gran Pct Auto 2.8 % (0.0-0.4); Lymphocytes Percent Auto 7.4 % (20-40); Mean Corpuscular HGB Conc 33.3 g/dl (31.0-35.0); Mean Corpuscular Hemoglobin 33.7 pg (27.0-33.0); Mean Platelet Volume 11.2 fL (9.4-12.3); Monocytes Percent Auto 7.6 % (2-11); Neutrophils Absolute Auto 10.8 X10*3/uL (2.0-8.3); Neutrophils Percent Auto 80.8 % (45-73); Red Blood Count 1.96 X10*6/uL (4.20-5.50); Red Cell Distribution Width 21.1 % (11.0-16.0); White Blood Count 13.3 X10*3/uL (4.8-10.8)
[2020-05-09] MEDS: Omeprazole 20 MG CAPSULE.DR PO (06:26)
[2020-05-09 06:34] LABS: Anion Gap 10 (12-20); Blood Urea Nitrogen 16 mg/dL (9-16); Carbon Dioxide 24 mmol/L (22-29); Chloride 96 mmol/L (96-108); Creatinine Clr Calc Pharmacy 93.2; Estimated Glomerular Filt Rate > 60; Glucose Fasting 117 mg/dL (60-99); Potassium 5.4 mmol/L (3.3-5.1); Sodium 125 mmol/L (135-145)
[2020-05-09 06:39] LABS: Platelet Count 78 X10*3/uL (160-400)
[2020-05-09 06:41] LABS: Hematocrit 19.8 % (37-47); Hemoglobin 6.6 g/dl (12.0-16.0)
[2020-05-09 06:51] LABS: SLIDE REVIEW VERIFIED
[2020-05-09 07:58] LABS: Glucose, Whole Blood 188 mg/dL (60-115)
[2020-05-09] MEDS: Fluticasone Propionate 250 MCG BLST.W.DEV 2 PUFF INHALE ×2 (08:21→20:04)
[2020-05-09] MEDS: Sodium Chloride Tab 1 GM TABLET 2 GM PO ×3 (10:06→20:11)
[2020-05-09] MEDS: 0.9 % Sodium Chloride Flush 3 ML SYRINGE IVFLUSH ×2 (10:06→15:47)
[2020-05-09] MEDS: Lactulose 20 GM/30 ML SOLUTION 30 GM PO ×3 (10:06→20:13)
[2020-05-09] MEDS: Gabapentin 300 MG CAPSULE PO ×3 (10:07→20:11)
[2020-05-09] MEDS: oxyCODONE HCl Immed Release 5 MG TABLET 2.5 MG PO ×2 (10:07→18:45)
[2020-05-09] MEDS: rifAXIMin 550 MG TABLET PO ×2 (10:07→20:13)
[2020-05-09] MEDS: Cholecalciferol (Vitamin D3) 25 MCG TABLET 50 MCG PO (10:07)
[2020-05-09] MEDS: Magnesium Oxide 400 MG TABLET PO ×2 (10:07→20:13)
[2020-05-09] MEDS: risperiDONE 1 MG TABLET PO ×2 (10:08→20:12)
[2020-05-09] MEDS: Pantoprazole Sodium 40 MG/10 ML VIAL IVPUSH ×2 (10:08→16:18)
[2020-05-09] MEDS: Baclofen 10 MG TABLET PO ×2 (10:08→20:12)
[2020-05-09] MEDS: Folic Acid 1 MG TABLET PO (10:08)
[2020-05-09] MEDS: Thiamine HCL 100 MG TABLET PO (10:08)
[2020-05-09] MEDS: Loratadine 10 MG TABLET PO (10:08)
[2020-05-09] MEDS: Pyridoxine HCl (Vitamin B6) 50 MG TABLET PO (10:08)
--- NOTE | 2020-05-09 11:12 | MHC.CM.PN ---
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
--- NOTE | 2020-05-09 11:13 | HO.PM.IMPN ---
Subjective Subjective Date of Service: 05/09/20 Interval History: maroon stools Cardiovascular Cardiovascular: Reports no additional cardiovascular complaints Respiratory Respiratory: Reports no additional respiratory complaints Physical Exam Vital Signs: Vital Signs: Last Vital Signs Temp 97.3 F 05/09/20 08:00 Pulse 93 05/09/20 08:00 Resp 18 05/09/20 08:00 BP 111/52 L 05/09/20 08:00 Pulse Ox 100 05/09/20 08:00 Body Mass Index 32.5 General: AO X 3, no acute distress, but occasionally shouts out when noone in room, juandiced Resp: CTA bilateral CVS: S1,S2,RRR GI: soft, non tender, non distended Neuro: motor grossly intact Psych: labile affect Objective Data Current Medications Generic Name Dose Route Start Last Admin Trade Name Freq PRN Reason Stop Dose Admin Acetaminophen 325 mg 05/07/20 10:17 05/08/20 21:04 Acetaminophen 325 Mg Tablet PO 325 mg Q6H PRN Administration pain Albuterol Sulfate 2 puff 05/02/20 20:57 05/08/20 19:39 Albuterol Sulfate 90 Mcg 8 Gm Inhaler INHALE 2 puff Q4H PRN Administration Shortness Of Breath Baclofen 10 mg 05/02/20 21:00 05/09/20 10:08 Baclofen 10 Mg Tablet PO 10 mg BID LILLI Administration Calcium Carbonate 750 mg 05/02/20 20:57 05/08/20 15:10 Calcium Carbonate 750 Mg Tab.Chew PO 750 mg TID PRN Administration Heartburn Docusate Sodium 100 mg 05/02/20 20:57 Docusate Sodium 100 Mg Capsule PO BID PRN Constipation Fluticasone Propionate 2 puff 05/03/20 08:00 05/09/20 08:21 Fluticasone Propionate 250 Mcg Blst.W.Dev INHALE 2 puff RBID LILLI Administration Folic Acid 1 mg 05/03/20 09:00 05/09/20 10:08 Folic Acid 1 Mg Tablet PO 1 mg DAILY LILLI Administration Gabapentin 300 mg 05/02/20 21:00 05/09/20 10:07 Gabapentin 300 Mg Capsule PO 300 mg TID LILLI Administration Lactulose 30 gm 05/02/20 21:00 05/09/20 10:06 Lactulose 20 Gm/30 Ml Solution PO 30 gm TID LILLI Administration Loratadine 10 mg 05/03/20 09:00 05/09/20 10:08 Loratadine 10 Mg Tablet PO 10 mg DAILY LILLI Administration Magnesium Oxide 400 mg 05/02/20 21:00 05/09/20 10:07 Magnesium Oxide 400 Mg Tablet PO 400 mg BID LILLI Administration Omeprazole 20 mg 05/03/20 06:30 05/09/20 06:26 Omeprazole 20 Mg Capsule.Dr PO 20 mg BID@0630,1630 LILLI Administration Ondansetron HCl 4 mg 05/04/20 09:43 05/08/20 17:46 Ondansetron Hcl 4 Mg/2 Ml Vial IVPUSH 4 mg Q8H PRN Administration Nausea Oxycodone HCl 2.5 mg 05/04/20 12:10 05/09/20 10:07 Oxycodone Hcl Immed Release 5 Mg Tablet PO 2.5 mg Q6H PRN Administration pain Pantoprazole Sodium 40 mg 05/09/20 09:15 05/09/20 10:08 Pantoprazole Sodium 40 Mg/10 Ml Vial IVPUSH 40 mg BID@0630,1630 LILLI Administration Pyridoxine HCl 50 mg 05/03/20 09:00 05/09/20 10:08 Pyridoxine Hcl (Vitamin B6) 50 Mg Tablet PO 50 mg DAILY [facility]I Administration Rifaximin 550 mg 05/02/20 21:00 05/09/20 10:07 Rifaximin 550 Mg Tablet PO 550 mg BID LILLI Administration Risperidone 1 mg 05/02/20 21:00 05/09/20 10:08 Risperidone 1 Mg Tablet PO 1 mg BID LILLI Administration Sodium Chloride 3 ml 05/03/20 00:00 05/09/20 10:06 0.9 % Sodium Chloride Flush 3 Ml Syringe IVFLUSH 3 ml QSHIFT LILLI Administration Sodium Chloride 2 gm 05/07/20 21:00 05/09/20 10:06 Sodium Chloride Tab 1 Gm Tablet PO 05/10/20 20:59 2 gm TID LILLI Administration Thiamine HCl 100 mg 05/03/20 09:00 05/09/20 10:08 Thiamine Hcl 100 Mg Tablet PO 100 mg DAILY LILLI Administration Vitamin D 50 mcg 05/03/20 09:00 05/09/20 10:07 Cholecalciferol (Vitamin D3) 25 Mcg Tablet PO 50 mcg DAILY LILLI Administration Labs CBC & Chem 7: 05/09/20 05:39 05/09/20 05:39 Microbiology Microbiology Results: Microbiology 05/02/20 16:00 Blood - Venous Blood Culture - Final No growth after 5 days. 05/02/20 14:24 Blood - Venous Blood Culture - Final No growth after 5 days. Assessment and Plan (1) Acute hyponatremia: Problem details: Hyponatremia likely multifactorial due to hypoosmolar intake diluting her serum Na down & chronic cirrhotic state. Serum Na on presentation 122-124 until 05/05/20. Then Serum Na turning down to 119 -> 120meq/L by 05/07/20 Nikky <20 [address] 265 Overall she has a combination hypovolemic (Nikky <20 without hypervoemia on exam) and tea-toast (Uosm low) syndromes. Na improved in last 24 hours with volume interventions. Status: Acute Assessment and Plan: 54F presented wiith abd pain and hyponatremia, now with maroon stools acute blood loss anemia in patient with etoh cirrhosis and maroon stools hgb was 6.9 yesterday 05/08 prior to reported bleed and received 1 unit prbc hgb today is 6.6. ordered additional unit, started protonix IV, GI to follow up hyponatremia, acute on chronic due to cirrhosis fluid restriction 1500 mL/d. received 1L NS 05/04/2020 and 05/05/2020 and 05/08/2020 sodium now 125 (was 119 at lowest) salt tablets 2tab tid monitor bmp nephrology following liver cirrhosis with thrombocytopenia/anemia chronic. at baseline no encephalopathy continue lactulose, xifaxan chronic pain disorder - gabapentin, baclofen mood - continue risperidone hypoMg continue home replacement DM2 Metformin d/c on last admission last A1c only 4.1 follow POCs DVT ppx - mechanical devices Code - SCDs, avoid heparin dispo on last admission was discharged to SNF as she was deconditioned, she was at home prior to current admission. disposition location to be determined based on condidiotn at time of discharge
[2020-05-09 12:12] LABS: Glucose, Whole Blood 168 mg/dL (60-115)
[2020-05-09] MEDS: oxyCODONE HCl Immed Release 5 MG TABLET PO (14:02)
--- NOTE | 2020-05-09 15:09 | PC.NURSE ---
patient has 22 to lla , patent with resistance to flush. 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 patient removes blood bank band, blood bank in to reapply. vanessa lee able to start iv at 1445, 20 to joni placed. oncoming shift aware
--- NOTE | 2020-05-09 16:26 | PC.NURSE ---
P-patient pulled out IV 20 in left upper arm I-PATIENT REORIENTED,T ROOM NOTIFIED,1:1 SITTER PLACED WITH PATIENT,PERMISSION FROMdr. Junior obtained to transfuse blood using #22 IV patient has patent since numerous attempts were made to insrt new IV E-will use existing IV to transfuse blood
[2020-05-09 16:47] LABS: Glucose, Whole Blood 178 mg/dL (60-115)
--- NOTE | 2020-05-09 17:10 | P.PNNP_ITS ---
Subjective Subjective Date of Service: 05/09/20 Interval history: janeth stools Feels OK Resting in the bed Physical Exam Vital Signs: Vital Signs: Last Vital Signs Temp 97.4 F 05/09/20 16:00 Pulse 84 05/09/20 16:00 Resp 20 05/09/20 16:00 BP 161/71 H 05/09/20 16:00 Pulse Ox 100 05/09/20 16:00 Body Mass Index 32.5 Const: General: cooperative and no acute distress; No acute distress Orientation/consciousness: oriented to person, oriented to place and oriented to time HENMT: Head: Yes normal to inspection and Yes normocephalic Mouth: moist mucous membranes Neck: Neck: Yes supple and Yes no JVD Resp: Effort & Inspection: normal respiratory effort Auscultation: clear to auscultation bilaterally and diminished lung sounds Cardio: Jugular venous distension: no JVD Rate: regular rate Rhythm: regular rhythm Heart sounds: S1 normal heart sound present and S2 normal heart sound present GI: Palpation (GI): Soft to palpation Neuro: General: oriented to person, oriented to place, oriented to time and moves all extremities Extrem: General: Yes full ROM and No edema Objective Data Labs CBC & Chem 7: 05/09/20 05:39 05/09/20 05:39 Labs: Laboratory Results - last 24 hr 05/08/20 05/08/20 05/08/20 06:00 08:37 20:48 WBC RBC Hgb Hct MCV MCH MCHC RDW Plt Count MPV Immature Gran % (Auto) Neut % (Auto) Lymph % (Auto) [place] % (Auto) Eos % (Auto) Baso % (Auto) Lymph # (Auto) [place] # (Auto) Eos # (Auto) Baso # (Auto) Abs Immat Gran (auto) Absolute Neuts (auto) Absolute Nucleated RBC Nucleated RBC % (auto) Smear Tech's Comments Smear Path Review SEE NOTE Sodium Potassium Chloride Carbon Dioxide Anion Gap BUN Creatinine Estim Creat Clear Calc Estimated GFR POC Glucose 123 H Fasting Glucose Calcium Blood Type A Negative Antibody Screen NEGATIVE Crossmatch See Detail 05/09/20 05/09/20 05/09/20 05:39 05:39 07:13 WBC 13.3 H RBC 1.96 L Hgb 6.6 L* Hct 19.8 L* MCV 101.0 H D MCH 33.7 H MCHC 33.3 RDW 21.1 H Plt Count 78 L MPV 11.2 Immature Gran % (Auto) 2.8 H Neut % (Auto) 80.8 H Lymph % (Auto) 7.4 L [place] % (Auto) 7.6 Eos % (Auto) 1.1 Baso % (Auto) 0.3 Lymph # (Auto) 1.0 L [place] # (Auto) 1.0 Eos # (Auto) 0.2 Baso # (Auto) 0.0 Abs Immat Gran (auto) 0.37 H Absolute Neuts (auto) 10.8 H Absolute Nucleated RBC 0.000 Nucleated RBC % (auto) 0.0 Smear Tech's Comments VERIFIED Smear Path Review Sodium 125 L Potassium 5.4 H Chloride 96 Carbon Dioxide 24 Anion Gap 10 L BUN 16 D Creatinine 0.66 Estim Creat Clear Calc 93.2 Estimated GFR > 60 POC Glucose 188 H Fasting Glucose 117 H Calcium 8.0 L Blood Type Antibody Screen Crossmatch 05/09/20 05/09/20 11:41 16:44 WBC RBC Hgb Hct MCV MCH MCHC RDW Plt Count MPV Immature Gran % (Auto) Neut % (Auto) Lymph % (Auto) [place] % (Auto) Eos % (Auto) Baso % (Auto) Lymph # (Auto) [place] # (Auto) Eos # (Auto) Baso # (Auto) Abs Immat Gran (auto) Absolute Neuts (auto) Absolute Nucleated RBC Nucleated RBC % (auto) Smear Tech's Comments Smear Path Review Sodium Potassium Chloride Carbon Dioxide Anion Gap BUN Creatinine Estim Creat Clear Calc Estimated GFR POC Glucose 168 H 178 H Fasting Glucose Calcium Blood Type Antibody Screen Crossmatch Microbiology Microbiology Results: Microbiology 05/02/20 16:00 Blood - Venous Blood Culture - Final No growth after 5 days. 05/02/20 14:24 Blood - Venous Blood Culture - Final No growth after 5 days. Assessment & Plan Assessment and plan (1) Chronic hyponatremia: Status: Acute (2) Acute hyponatremia: Problem details: Hyponatremia likely multifactorial due to hypoosmolar intake diluting her serum Na down & chronic cirrhotic state. Serum Na on presentation 122-124 unti Now improved to 125 Nikky <20 Uosm 178 [address]. Osm 265 Overall she has a combination hypovolemic (Nikky <20 without hypervoemia on exam) and tea-toast (Uosm low) syndromes. Status: Acute Assessment and Plan: Plan: - Continue NaCl tabs to 2g TID - Agree with d/c IVF - Strict fluid restriction - osmolar load - q8- 12 hrly Na levels until she improves (3) Chronic liver failure: Status: Acute (4) Advanced hepatic cirrhosis: Status: Acute Time Spent With Patient Time: Total time spent is greater than 50% in coordination of care (as documented) at patient's floor/unit and/or counseling patient: Procedures Date of Service Date of Service: 05/09/20
--- NOTE | 2020-05-09 18:31 | PC.NURSE ---
P-unable to document 15 min vitals signs after starting blood transfusion,system would not allow I- Blood bank was notified,documenation on paper in patient chart E-manager trainee Marcia notified IT
[2020-05-09] MEDS: Albuterol Sulfate 90 MCG 8 GM INHALER 2 PUFF INHALE (18:46)
--- NOTE | 2020-05-09 20:27 | PC.NURSE ---
patient tolerated transfusionj very well,documentation on the chart
[2020-05-09 20:36] LABS: Glucose, Whole Blood 162 mg/dL (60-115)
[2020-05-09] MEDS: hydrOXYzine HCL 25 MG TABLET PO (21:54)
[2020-05-09] MEDS: ondansetron HCL 4 MG/2 ML VIAL IVPUSH (21:54)
[2020-05-10] VITALS (9 sets, daily range): BP systolic 101–164; BP diastolic 60–71; PULSE 88–100; RESP 15–20; TEMP 36–36.6; O2SAT 89–100
[2020-05-10] MEDS: 0.9 % Sodium Chloride Flush 3 ML SYRINGE IVFLUSH ×4 (00:20→23:40)
[2020-05-10] MEDS: Albuterol Sulfate 90 MCG 8 GM INHALER 2 PUFF INHALE ×3 (01:10→19:35)
[2020-05-10] MEDS: oxyCODONE HCl Immed Release 5 MG TABLET 2.5 MG PO ×3 (01:50→23:08)
[2020-05-10] MEDS: Pantoprazole Sodium 40 MG/10 ML VIAL IVPUSH ×2 (06:42→16:00)
[2020-05-10 07:06] LABS: Basophils Absolute Auto 0.1 X10*3/uL (0.0-0.2); Basophils Percent Auto 0.3 % (0-2); Eosinophils Percent Auto 1.5 % (0-4); Mean Corpuscular Hemoglobin 32.5 pg (27.0-33.0); Monocytes Percent Auto 7.2 % (2-11)
[2020-05-10 07:08] LABS: Eosinophils Absolute Auto 0.3 X10*3/uL (0.0-0.4); Hematocrit 22.4 % (37-47); Hemoglobin 7.7 g/dl (12.0-16.0); Imm Gran Abs Auto 0.49 X10*3/uL (0.00-0.03); Imm Gran Pct Auto 2.8 % (0.0-0.4); Lymphocytes Percent Auto 5.7 % (20-40); Mean Corpuscular HGB Conc 34.4 g/dl (31.0-35.0); Mean Corpuscular Volume 94.5 fL (80-98); Mean Platelet Volume 10.9 fL (9.4-12.3); Monocytes Absolute Auto 1.3 X10*3/uL (0.1-1.2); Neutrophils Absolute Auto 14.5 X10*3/uL (2.0-8.3); Neutrophils Percent Auto 82.5 % (45-73); Red Blood Count 2.37 X10*6/uL (4.20-5.50); Red Cell Distribution Width 23.7 % (11.0-16.0); White Blood Count 17.6 X10*3/uL (4.8-10.8)
[2020-05-10 07:11] LABS: INTERNATIONAL NORM RATIO 1.9 (0.9-1.1); Prothrombin Time 22.2 SEC (10.8-13.0)
[2020-05-10] MEDS: Fluticasone Propionate 250 MCG BLST.W.DEV 2 PUFF INHALE ×2 (07:20→19:23)
[2020-05-10 07:32] LABS: Platelet Count 72 X10*3/uL (160-400)
[2020-05-10 07:33] LABS: MANUAL DIFF FLAG NO
[2020-05-10 07:36] LABS: Glucose, Whole Blood 126 mg/dL (60-115)
[2020-05-10 07:46] LABS: Alanine Aminotransferase 23 U/L (0-31); Albumin Level 1.9 g/dL (3.5-5.0); Alkaline Phosphatase 125 U/L (39-117); Anion Gap 12 (12-20); Aspartate Amino Transferase 58 U/L (5-31); Bilirubin Direct 6.1 mg/dL (0.0-0.5); Bilirubin Total 13.6 mg/dL (0.0-1.0); Blood Urea Nitrogen 17 mg/dL (9-16); Calcium 8.3 mg/dL (8.4-10.2); Carbon Dioxide 22 mmol/L (22-29); Chloride 96 mmol/L (96-108); Creatinine Clr Calc Pharmacy 102.5; Estimated Glomerular Filt Rate > 60; Glucose Fasting 113 mg/dL (60-99); Magnesium 2.1 mg/dL (1.6-2.6); Potassium 4.9 mmol/L (3.3-5.1); Sodium 125 mmol/L (135-145); Total Protein 4.8 g/dL (6.5-8.0)
[2020-05-10] MEDS: Lactulose 20 GM/30 ML SOLUTION 30 GM PO ×3 (08:33→20:17)
[2020-05-10] MEDS: Magnesium Oxide 400 MG TABLET PO ×2 (08:34→20:16)
[2020-05-10] MEDS: Pyridoxine HCl (Vitamin B6) 50 MG TABLET PO (08:34)
[2020-05-10] MEDS: risperiDONE 1 MG TABLET PO ×2 (08:34→20:16)
[2020-05-10] MEDS: Gabapentin 300 MG CAPSULE PO ×3 (08:34→20:16)
[2020-05-10] MEDS: Loratadine 10 MG TABLET PO (08:34)
[2020-05-10] MEDS: Baclofen 10 MG TABLET PO ×2 (08:34→20:16)
[2020-05-10] MEDS: rifAXIMin 550 MG TABLET PO ×2 (08:34→20:15)
[2020-05-10] MEDS: Sodium Chloride Tab 1 GM TABLET 2 GM PO ×2 (08:34→16:23)
[2020-05-10] MEDS: Thiamine HCL 100 MG TABLET PO (08:34)
[2020-05-10] MEDS: Cholecalciferol (Vitamin D3) 25 MCG TABLET 50 MCG PO (08:34)
[2020-05-10] MEDS: Folic Acid 1 MG TABLET PO (08:34)
--- NOTE | 2020-05-10 11:16 | MHC.CM.PN ---
PER MULTIDISCIPLINARY ROUNDS NO DISCHARGE PLANNED TODAY, ANTICIPATED D/C 1-2 DAYS. CM WILL CONTINUE TO FOLLOW FOR CHANGING DISCHARGE NEEDS. DISCHARGE HOME W/RESUMPTION OF [facility] AND HOME PT VS STR, TRANSPORT FAMILY VS BLS
[2020-05-10 11:51] LABS: Glucose, Whole Blood 177 mg/dL (60-115)
--- NOTE | 2020-05-10 12:40 | HO.PM.IMPN ---
Subjective Subjective Date of Service: 05/10/20 Interval History: Patient asking to go home, has sitter in place due to behavioral issues, no recurrent episodes of maroon-colored stool, complaining of epigastric discomfort, no nausea, no vomiting tolerating diet, no diarrhea. ROS General no headache, no dizziness, no fever chills. CVS no chest pain, no palpitation. Respiratory no cough, no sob Gastrointestinal no nausea, no vomiting, epigastric pain Physical Exam Vital Signs: Vital Signs: Last Vital Signs Temp 96.9 F 05/10/20 11:12 Pulse 93 05/10/20 11:12 Resp 18 05/10/20 11:12 BP 141/67 H 05/10/20 11:12 Pulse Ox 97 05/10/20 11:12 Body Mass Index 32.5 General patient resting comfortably in no acute distress. Icteric sclera Neck is supple no JVD. CVS regular rate rhythm, Respiratory lungs clear to auscultation, no respiratory distress, diminished breath sound at bases Gastrointestinal abdomen soft, distended, epigastric discomfort on palpation, bowel sounds audible, no guarding , no rigidity. Extremities no clubbing, cyanosis or edema. Neuro nonfocal ,speech clear. Objective Data Current Medications Generic Name Dose Route Start Last Admin Trade Name Freq PRN Reason Stop Dose Admin Acetaminophen 325 mg 05/07/20 10:17 05/08/20 21:04 Acetaminophen 325 Mg Tablet PO 325 mg Q6H PRN Administration pain Albuterol Sulfate 2 puff 05/02/20 20:57 05/10/20 01:10 Albuterol Sulfate 90 Mcg 8 Gm Inhaler INHALE 2 puff Q4H PRN Administration Shortness Of Breath Baclofen 10 mg 05/02/20 21:00 05/10/20 08:34 Baclofen 10 Mg Tablet PO 10 mg BID LILLI Administration Calcium Carbonate 750 mg 05/02/20 20:57 05/08/20 15:10 Calcium Carbonate 750 Mg Tab.Chew PO 750 mg TID PRN Administration Heartburn Docusate Sodium 100 mg 05/02/20 20:57 Docusate Sodium 100 Mg Capsule PO BID PRN Constipation Fluticasone Propionate 2 puff 05/03/20 08:00 05/10/20 07:20 Fluticasone Propionate 250 Mcg Blst.W.Dev INHALE 2 puff RBID LILLI Administration Folic Acid 1 mg 05/03/20 09:00 05/10/20 08:34 Folic Acid 1 Mg Tablet PO 1 mg DAILY LILLI Administration Gabapentin 300 mg 05/02/20 21:00 05/10/20 08:34 Gabapentin 300 Mg Capsule PO 300 mg TID LILLI Administration Hydroxyzine HCl 25 mg 05/09/20 21:12 05/09/20 21:54 Hydroxyzine Hcl 25 Mg Tablet PO 25 mg Q8H PRN Administration anxiety/restlessness Lactulose 30 gm 05/02/20 21:00 05/10/20 08:33 Lactulose 20 Gm/30 Ml Solution PO 30 gm TID LILLI Administration Loratadine 10 mg 05/03/20 09:00 05/10/20 08:34 Loratadine 10 Mg Tablet PO 10 mg DAILY LILLI Administration Magnesium Oxide 400 mg 05/02/20 21:00 05/10/20 08:34 Magnesium Oxide 400 Mg Tablet PO 400 mg BID LILLI Administration Ondansetron HCl 4 mg 05/04/20 09:43 05/09/20 21:54 Ondansetron Hcl 4 Mg/2 Ml Vial IVPUSH 4 mg Q8H PRN Administration Nausea Oxycodone HCl 2.5 mg 05/04/20 12:10 05/10/20 01:50 Oxycodone Hcl Immed Release 5 Mg Tablet PO 2.5 mg Q6H PRN Administration pain Pantoprazole Sodium 40 mg 05/09/20 09:15 05/10/20 06:42 Pantoprazole Sodium 40 Mg/10 Ml Vial IVPUSH 40 mg BID@0630,1630 LILLI Administration Pyridoxine HCl 50 mg 05/03/20 09:00 05/10/20 08:34 Pyridoxine Hcl (Vitamin B6) 50 Mg Tablet PO 50 mg DAILY LILLI Administration Rifaximin 550 mg 05/02/20 21:00 05/10/20 08:34 Rifaximin 550 Mg Tablet PO 550 mg BID LILLI Administration Risperidone 1 mg 05/02/20 21:00 05/10/20 08:34 Risperidone 1 Mg Tablet PO 1 mg BID LILLI Administration Sodium Chloride 3 ml 05/03/20 00:00 05/10/20 08:35 0.9 % Sodium Chloride Flush 3 Ml Syringe IVFLUSH 3 ml QSHIFT LILLI Administration Sodium Chloride 2 gm 05/07/20 21:00 05/10/20 08:34 Sodium Chloride Tab 1 Gm Tablet PO 05/10/20 20:59 2 gm TID LILLI Administration Thiamine HCl 100 mg 05/03/20 09:00 05/10/20 08:34 Thiamine Hcl 100 Mg Tablet PO 100 mg DAILY LILLI Administration Vitamin D 50 mcg 05/03/20 09:00 05/10/20 08:34 Cholecalciferol (Vitamin D3) 25 Mcg Tablet PO 50 mcg DAILY LILLI Administration Labs CBC & Chem 7: 05/10/20 06:38 05/10/20 06:38 Microbiology Microbiology Results: Microbiology 05/02/20 16:00 Blood - Venous Blood Culture - Final No growth after 5 days. 05/02/20 14:24 Blood - Venous Blood Culture - Final No growth after 5 days. Assessment and Plan (1) Acute hyponatremia: Problem details: Hyponatremia likely multifactorial due to hypoosmolar intake diluting her serum Na down & chronic cirrhotic state. Serum Na on presentation 122-124 unti Now improved to 125 Nikky <20 Uosm [address] Osm 265 Overall she has a combination hypovolemic (Nikky <20 without hypervoemia on exam) and tea-toast (Uosm low) syndromes. Status: Acute (2) Acute lower gastrointestinal bleeding: Status: Acute (3) Chronic pain: Status: Acute Assessment and Plan: 54F presented wiith abd pain and hyponatremia, now with maroon stools acute blood loss anemia in patient with etoh cirrhosis and maroon stools No further GI bleed, mild epigastric pain, tolerating diet hgb was 6.9 05/08 prior to reported bleed and received 2 unit prbc hemoglobin today 7.7 Continue protonix IV, await GI input hyponatremia, acute on chronic due to cirrhosis,fluid restriction 1500 mL/d. Strongly recommend to follow restriction, received 1L NS 05/04/2020,on 05/05/2020 and 05/08/2020 sodium now 125 (was 119 at lowest), case discussed with Nephrology they will make further recommendations regarding use of urea. monitor bmp liver cirrhosis with thrombocytopenia/anemia chronic. at baseline no encephalopathy continue lactulose, xifaxan chronic pain disorder Continue gabapentin, baclofen mood continue risperidone and sitter hypoMg continue home replacement magnesium 2.1 DM2 Metformin d/c on last admission last A1c only 4.1 follow POCs DVT ppx - mechanical devices Code SCDs, avoid anticoagulation with low platelet dispo on last admission was discharged to SNF as she was deconditioned, she was at home prior to current admission. disposition location to be determined based on condidiotn at time of discharge Will encourage ambulation.
[2020-05-10] MEDS: ondansetron HCL 4 MG/2 ML VIAL IVPUSH (12:52)
[2020-05-10] MEDS: hydrOXYzine HCL 25 MG TABLET PO ×2 (13:38→23:08)
--- NOTE | 2020-05-10 15:08 | MHC.CLN ---
F/U PO INTAKE 25% OR LESS DIET RX: REGULAR 1500ML FR-APPROPRIATE PT RECEIVING 8OZ ENSURE TID PROVIDES 1050KCALS, 60G PROTEIN, 540CC FREE WATER FOR FLUID RESTRICTION (KITCHEN AWARE) FOLLOWING
[2020-05-10 16:50] LABS: Glucose, Whole Blood 161 mg/dL (60-115)
--- NOTE | 2020-05-10 17:25 | PC.NURSE ---
P-BS [address] Xiong notified E will monitor
[2020-05-10] MEDS: Calcium Carbonate 750 MG TAB.CHEW PO (18:38)
[2020-05-10 21:02] LABS: Glucose, Whole Blood 195 mg/dL (60-115)
--- NOTE | 2020-05-10 22:27 | P.PNNP_ITS ---
Subjective Subjective Date of Service: 05/10/20 Interval history: Patient asking to go home Feels better No nausea, no vomiting tolerating diet, no diarrhea. ROS General no headache, no dizziness, no fever chills. CVS no chest pain, no palpitation. Respiratory no cough, no sob Gastrointestinal no nausea, no vomiting, epigastric pain Physical Exam Vital Signs: Vital Signs: Last Vital Signs Temp 97.9 F 05/10/20 19:54 Pulse 89 05/10/20 19:54 Resp 15 05/10/20 19:54 BP 134/60 05/10/20 19:54 Pulse Ox 100 05/10/20 19:54 Body Mass Index 32.5 Const: General: cooperative and no acute distress; No acute distress Orientation/consciousness: oriented to person, oriented to place and oriented to time HENMT: Head: Yes normal to inspection and Yes normocephalic Mouth: moist mucous membranes Neck: Neck: Yes supple and Yes no JVD Resp: Effort & Inspection: normal respiratory effort Auscultation: clear to auscultation bilaterally and diminished lung sounds Cardio: Jugular venous distension: no JVD Rate: regular rate Rhythm: regular rhythm Heart sounds: S1 normal heart sound present and S2 normal heart sound present GI: Palpation (GI): Soft to palpation Neuro: General: oriented to person, oriented to place, oriented to time and moves all extremities Extrem: General: Yes full ROM and No edema Objective Data Labs CBC & Chem 7: 05/10/20 06:38 05/10/20 06:38 Labs: Laboratory Results - last 24 hr 05/08/20 05/10/20 05/10/20 08:37 06:38 06:38 WBC 17.6 H RBC 2.37 L D Hgb 7.7 L Hct 22.4 L MCV 94.5 D MCH 32.5 MCHC 34.4 RDW 23.7 H Plt Count 72 L MPV 10.9 Immature Gran % (Auto) 2.8 H Neut % (Auto) 82.5 H Lymph % (Auto) 5.7 L [place] % (Auto) 7.2 Eos % (Auto) 1.5 Baso % (Auto) 0.3 Lymph # (Auto) 1.0 L [place] # (Auto) 1.3 H Eos # (Auto) 0.3 Baso # (Auto) 0.1 Abs Immat Gran (auto) 0.49 H Absolute Neuts (auto) 14.5 H Absolute Nucleated RBC 0.000 Nucleated RBC % (auto) 0.0 PT 22.2 H D INR 1.9 H Sodium Potassium Chloride Carbon Dioxide Anion Gap BUN Creatinine Estim Creat Clear Calc Estimated GFR POC Glucose Fasting Glucose Calcium Magnesium Total Bilirubin Direct Bilirubin AST ALT Alkaline Phosphatase Total Protein Albumin Blood Type A Negative Antibody Screen NEGATIVE Crossmatch See Detail 05/10/20 05/10/20 05/10/20 06:38 07:32 11:27 WBC RBC Hgb Hct MCV MCH MCHC RDW Plt Count MPV Immature Gran % (Auto) Neut % (Auto) Lymph % (Auto) [place] % (Auto) Eos % (Auto) Baso % (Auto) Lymph # (Auto) [place] # (Auto) Eos # (Auto) Baso # (Auto) Abs Immat Gran (auto) Absolute Neuts (auto) Absolute Nucleated RBC Nucleated RBC % (auto) PT INR Sodium 125 L Potassium 4.9 Chloride 96 Carbon Dioxide 22 Anion Gap 12 BUN 17 H Creatinine 0.60 Estim Creat Clear Calc 102.5 Estimated GFR > 60 POC Glucose 126 H 177 H Fasting Glucose 113 H Calcium 8.3 L Magnesium 2.1 Total Bilirubin 13.6 H Direct Bilirubin 6.1 H AST 58 H ALT 23 Alkaline Phosphatase 125 H Total Protein 4.8 L Albumin 1.9 L Blood Type Antibody Screen Crossmatch 05/10/20 05/10/20 16:36 20:58 WBC RBC Hgb Hct MCV MCH MCHC RDW Plt Count MPV Immature Gran % (Auto) Neut % (Auto) Lymph % (Auto) [place] % (Auto) Eos % (Auto) Baso % (Auto) Lymph # (Auto) [place] # (Auto) Eos # (Auto) Baso # (Auto) Abs Immat Gran (auto) Absolute Neuts (auto) Absolute Nucleated RBC Nucleated RBC % (auto) PT INR Sodium Potassium Chloride Carbon Dioxide Anion Gap BUN Creatinine Estim Creat Clear Calc Estimated GFR POC Glucose 161 H 195 H Fasting Glucose Calcium Magnesium Total Bilirubin Direct Bilirubin AST ALT Alkaline Phosphatase Total Protein Albumin Blood Type Antibody Screen Crossmatch Microbiology Microbiology Results: Microbiology 05/02/20 16:00 Blood - Venous Blood Culture - Final No growth after 5 days. 05/02/20 14:24 Blood - Venous Blood Culture - Final No growth after 5 days. Assessment & Plan Assessment and plan (1) Acute hyponatremia: Problem details: Hyponatremia likely multifactorial due to hypoosmolar intake diluting her serum Na down & chronic cirrhotic state. Serum Na on presentation 122-124 unti Now improved to 125 Nikky <20 [address]osm [address] Osm 265 Overall she has a combination hypovolemic (Nikky <20 without hypervoemia on exam) and tea-toast (Uosm low) syndromes. Status: Acute (2) Acute lower gastrointestinal bleeding: Status: Acute (3) Chronic pain: Status: Acute Assessment and Plan: 54F presented wiith abd pain and hyponatremia, now with maroon stools (1) Chronic hyponatremia: (2) Acute hyponatremia: Assessment and Plan: Plan: - d/c NaCl tabs to 2g TID - IV lasix 40 mg x 1 dose ordered for free water excretion - Urea 30 g x 1 dopse - Strict fluid restriction - Check Na levels daily (3) Chronic liver failure: (4) Advanced hepatic cirrhosis: Time Spent With Patient Time: Total time spent is greater than 50% in coordination of care (as docum ented) at patient's floor/unit and/or counseling patient: Procedures Date of Service Date of Service: 05/10/20
[2020-05-10] MEDS: Furosemide 40 MG/4 ML VIAL IVPUSH (23:07)
[2020-05-10] MEDS: Urea 15 GM POWDER 30 GM PO (23:08)
[2020-05-11] VITALS (22 sets, daily range): BP systolic 69–132; BP diastolic 32–73; PULSE 67–96; RESP 9–20; TEMP 32–36; O2SAT 91–100
--- NOTE | 2020-05-11 01:11 | PM.EVENT ---
Event Note Date of Service: 05/11/20 Event Note: A code blue was called on this pt at around 11:30 pm for Asystole. Pt had CPR as well as 5 rounds of epinephrine , two rounds of bicarb, 2 rounds of sodium chloride given with ROSC achieved at 11:45 pm.Pt also received 1 dose of IV mag. Pt was PEA during the 15 mins. She was also succeefully intubated but appeared to have perfuse bleeding from upper GI, although source not completely clear, which made intubation somewhat difficult. Pt also had an IO inserted during the code due to infiltation of IV line. SHe is now in ICU, and a massive blood transfusion protocol was initiated on her given the active bleed and low plt and coagulopathy in the setting of her liver cirrhosis.
--- NOTE | 2020-05-11 01:19 | PC.NURSE ---
PATIENT SEEN AND ASSESSED BY THIS ACCOUNT SERVICES REPRESENTATIVE AT 2335, ALERT, VERBAL, AND LYING IN BED. SITTER AT BEDSIDE FOR SAFETY. LUNG SOUNDS CLEAR AND DIM TO BASES, ABD FIRM, DISTENDED,AND TENDER. PER DRIVER'S LICENSE REVIEWING OFFICER SITTER PT WITH LOOSE STOOLS AND RECEIVING LACTULOSE. PT CAN BE INCONTINENT OF URINE AND ALSO ASSISST OF ONE TO BEDSIDE COMMODE. MULTIPLE BRUISING TO BILAT ARMS, BULWARK CARPENTER BLE EDEMA, #22 PRN ANGIO LEFT FOREARM. PT ASKING FOR MEDICATIONS AND INFORMED TIMES TWO THAT SHE RECEIVED PAIN MEDICINE AND ATARAX BY PREV RN AT 2310. PATIENT BASELINE TO BE FORGETFUL. FLUID RERSTRICTION IN USE SECONDARY TO SODIUM LEVEL 125. HH REMAINS LOW WITH NO S/SX ACTIVE BLEEDING. TELEMETRY MONITORING IN USE AND BEING WATCHED BY [facility] SPANISH PROFESSOR WITH PLANT SAFETY ENGINEER ON THIS FLOOR ALSO. SPANISH PROFESSOR FROM [facility] CALLED TO FLOOR TO REPORT A CHANGE IN HER CARDIAC MONITORING AND CALL RECEIVED BY [facility] RN ON S3. THAT NURSE WENT TO VIEW PATIENT WHILE AT SAME TIME NURSING TECHNOLOGY SUPPORT ANALYST AND ADDITIONAL [facility] RN'S RESPONDED THEY SAW THE CHANGE. NOTED THIS ACCOUNT SERVICES REPRESENTATIVE ASSIGNED TO PATIENT, IN ROOM WITH OTHER PT AND ALERTED TO THIS CHANGE CODE BLUE WAS ANNOUNCED OVERHEAD. DRIVER'S LICENSE REVIEWING OFFICER AT BEDSIDE REPORT PT WAS INCONTINENT OF URINE IN BED AT 0015, OOB [id number], ADDITIONAL VOID AND THEN BTB. REPORTED PT FLOPPED INTO BED AND STILL ALERT AND ASKING FOR BOOST UP. PATIENT SIDE LYING AND BECAME UNRESPONSIVE RIGHT THEN AND TECHNOLOGY SUPPORT ANALYST AND IMC RN WALKED INTO ROOM. CODE CALLED 0020, CPR INITIATED, ED MD, HOSPITALIST, RESP THERAPIST, AND CODE TEAM TOOK OVER ALL CARE FOR PATIENT. PT INTUBATED AND TRANSFERRED TO ICU AT 0055. MD LEFT MESSAGE FOR PATIENTS MANAGER IN TRAINING ON CHART. ADD ON BP 118/63-85 AT APPROX., 2315
[2020-05-11 01:43] LABS: Mean Corpuscular HGB Conc 34.1 g/dl (31.0-35.0); NRBC Pct Auto 0.1 /100WBC (0.0-0.2); PLT CLUMP 1
[2020-05-11 01:45] LABS: Hematocrit 21.1 % (37-47); Hemoglobin 7.2 g/dl (12.0-16.0); Mean Corpuscular Hemoglobin 32.9 pg (27.0-33.0); Mean Corpuscular Volume 96.3 fL (80-98); Mean Platelet Volume 10.8 fL (9.4-12.3); Red Blood Count 2.19 X10*6/uL (4.20-5.50); Red Cell Distribution Width 24.1 % (11.0-16.0); White Blood Count 20.8 X10*3/uL (4.8-10.8)
[2020-05-11 01:53] LABS: Platelet Count 75 X10*3/uL (160-400)
[2020-05-11 01:58] LABS: Fibrinogen 189 MG/DL (259-690); INTERNATIONAL NORM RATIO 1.8 (0.9-1.1); Prothrombin Time 21.9 SEC (10.8-13.0)
[2020-05-11 02:08] LABS: HCO3 VBG 20 mmol/L; PCO2 VBG 39 mmHg; PO2 VBG 135 mmHg; pH VBG 7.32 (7.32-7.43)
[2020-05-11 02:09] LABS: Albumin Level 1.8 g/dL (3.5-5.0); Calcium 9.9 mg/dL (8.4-10.2)
[2020-05-11 02:11] LABS: Lactic Acid 3.7 mmol/L (0.5-2.0)
[2020-05-11 02:21] LABS: Glucose, Whole Blood 237 mg/dL (60-115)
[2020-05-11 02:22] LABS: Magnesium 2.2 mg/dL (1.6-2.6); Phosphorus 4.6 mg/dL (2.7-4.5)
[2020-05-11] MEDS: Pantoprazole Sodium 80 MG in 0.9 % Sodium Chloride 80 ML 10 MG IV ×2 (02:44→09:47)
[2020-05-11] MEDS: Pantoprazole Sodium 40 MG/10 ML VIAL 80 MG IVPUSH (02:44)
[2020-05-11] MEDS: Octreotide Acetate 500 MCG in 0.9 % Sodium Chloride 500 ML 50.1 MCG IVCONT ×2 (02:45→09:47)
[2020-05-11] MEDS: Albumin Human 25 % 100 ML IV ×4 (02:47→08:52)
[2020-05-11] MEDS: cefTRIAXone sodium 2 GM in 0.9 % Sodium Chloride 50 ML IV (02:47)
[2020-05-11] MEDS: propofoL 1,000 MG/100 ML VIAL 23.41 MG IVCONT ×3 (02:48→05:54)
--- NOTE | 2020-05-11 03:06 | P.CONCC_ITS ---
History of Present Illness Data of Consult Service Date: 05/11/20 Requesting physician: Boris Ramirez Primary Care Provider: Nuvia Bagley NP HPI Reason for consult: s/p cardiac arrest, UGIB HPI: 55-year-old patient with history alcoholism, alcoholic cirrhosis, tips procedures, recurrent hepatic encephalopathy, chronic hyponatremia, COPD, polysubstance abuse, anemia of chronic disease among others presented to the ICU status post cardiopulmonary arrest to which I assisted and coordinated. Historically, the patient had been admitted to this hospital since 05/02/2020 with hyponatremia and reported lower GI bleed. Topher arora was called at 12:30 a.m. reportedly, the patient had been trying to go to the bathroom several times according to her sitter and son at [place] upon lying down ?she when out and ?. A nurse check up all sent breathing and the patient was pulseless and unresponsive. Arrived to the floor and started CPR, ordered epinephrine and multiple other medications were given, Juventino was placed. Subsequently with the aid of the ER physician, a 7.5 cm endotracheal tube was placed, I also placed a left tibial IO line at bedside, CPR was continued and they were able to get a pulse back. The patient was transferred to the ICU. During the time of my intubation, the patient appeared to be bleeding profusely from the upper part of her GI tract with bright red blood which was suctioned. Reportedly, the patient was seen by Dr. Garibay (GI) on the of this month but no interventions had been done, the patient was receiving PPI orally there was a question of whether not her tips was patent. Upon arriving to the ICU, the patient appeared to be hemodynamically stable with a blood pressure 132/70, HR 75 on a ventilator. ROS: Unable to Obtain Past Medical History: As above Past Surgical History: Tips Cholecystectomy Family history: Unknown Social History: History of alcoholism, living situation is unknown. CODE STATUS: FULL CODE Allergies: Iodine (anaphylaxis); PCN (nausea and vomiting); BACTRIM (rash) Home Medications: please see med rec PHYSICAL EXAM: VS: 130/58; 72; 20; 100% on vent VENT SETTINGS : Rate 20, VT 400, peep 5, FiO2 100 % ?General: sedated and intubated ?Skin: Jaundice, multiple echymotic spots thru different parts of the body. ?HEENT: Head is normocephalic, atraumatic, eys are icteric, Buccal mucosa is dry and there is evidence of active UGIB. Neck is supple without lymphadenopathy. ?Cardiac: Clear S1-S2, no murmurs rubs or gallops. ?Pulmonary: Clear to auscultation, no wheezes, rales or rhonchi. ?Abdomen: Large, distended, Capud [place] noted; scant bowel sounds in all 4 Q?s. ?Musculoskeletal: Passive ROM of all 4 ext at major joints do not show stiff ness. ?Neurologic: As above, and sedated, unable to further size. Vascular: 2+ pulses upper and lower extremities distally. Patient is cool, capillary refill about 3 seconds toes and fingers. SIGNIFICANT LABORATORY DATA: White 715.6, hemoglobin 7.7, hematocrit 22.4, platelets 72. Sodium 125, potassium 4.9, chloride 96, carbon dioxide 22, anion gap 12, BUN 17, creatinine 0.60, calcium 8.3. Albumin 1.9. Magnesium 2.1, this 80 50, ALT 23, alk-phos 125, protein 4.8. REVIEW OF IMAGES: Chest x-ray from today IMPRESSION: 1. Endotracheal tube extending into the right mainstem bronchus. Recommend retraction. 2. Right internal jugular central venous catheter overlies the right atrium. This is approximately 3 cm beyond the cavoatrial junction. Consider repositioning. 3. Enteric tube side-port overlies the distal esophagus. Suggest advancement. 4. Bilateral perihilar opacities. This could be associated with fluid overload. Review of CT abdomen pelvis 1. Cirrhosis, TIPS shunt. Ascites, similar in abdomen and slightly increased pelvis. 2. No bowel obstruction or focal inflammatory changes. No pneumatosis or free air. 3. Mild scattered new small opacities right lung base. This could be related to infectious process or aspiration. ASSESSMENT AND PLAN: 1. S/P Cardiopulmonary Arrest 2. UGIB ? Recurrence of esophageal varices, malfunctioning TIPS ?, gastritis, esophagitis, gastric ulcers 3. Coagulopathy due to liver disease 4. Thrombocytopenia due to liver disease 5. Anemia Acute blood loss and chronic liver disease 6. Hyponatremia likely due to 3rd spacing and chronic Liver disease 7. Ascites and Abd distention 8. Hypoalbumenemia 9. Reactive Lactic Acidosis NO SEPSIS evidence 10. Pseudo hypocalcemia with corrected at level of 9.98. 11. Reactive leukocytosis without evidence of infection at this point; although the perihilar opacities can be the cause in the setting of PNA Transferred to ICU, continue with artificial ventilation, will drop rate and FiO2 for this is not a respiratory related issue. Patient's temperature is low 91? rectally, will warm her up to 96?; I will place a central line, I have activated the massive transfusion protocol, the patient will receive blood, FFP and platelets, I start her on IV PPI and octreotide tried, if her blood pressure drops, we will give her albumin. For sedation will use propofol. Repeat labs, ammonia level, lactic acid, blood gas and give her Rocephin. I will try contacting the on-call GI doctor for she continues to bleed from the upper GI tract. Current INR is 1.9.; blood cx x 2 . Repeat lactic acid and had dual antibiotics due to possible lung infection. Chest x-ray was reported with the endotracheal tube torso remains stain, will pull it back. The oral gastric tube has been removed for the patient continues to bleed profusely. 0218 am I discussed the case with Dr. Garibay who given the patient's ongoing bleeding, has agreed to come into the hospital to see evaluated the patient and her active GI bleed. [address] Garibay in to see the patient. She is planning on performing an upper endoscopy. GI PROPHYLAXIS: PPI IV DVT PROPHYLAXIS: Pneumatic Stocks Critical care time used for critical evaluation of this patient, diagnosis, treatment and coordination of care, review her records and documentation TOTAL CRITICAL CARE TIME 120 MIN . Patient's care was discussed in detail with Dr. Blackman. He is aware of all the above as well as the plan of care for this patient. [facility] Past Medical History Medical History (Updated 05/11/20 @ 03:19 by Teresa Garibay MD) Abnormal CT scan, gastrointestinal tract Anemia Anxiety Chronic back pain Chronic hyponatremia Cirrhosis Coagulopathy Congestive heart failure COPD (chronic obstructive pulmonary disease) Depression Diabetes 1.5, managed as type 2 Hyponatremia Liver disease Pneumonia PTSD (post-traumatic stress disorder) Thrombocytopenia Functional capacity: independent ambulation Family History Family History Other HTN (hypertension) Family history: reviewed and not pertinent Surgical History Surgical History History of cholecystectomy Previous back surgery S/P TIPS (transjugular intrahepatic portosystemic shunt) Social History Social History Household Members: Significant Other Housing: Apartment Do you presently have visiting nurse or other home services: Yes Alcohol intake: former Smoking Status: Current every day smoker Tobacco Type: Cigarette Packs Per Day: 0.5 Cigarettes Per Day: 2 Years Smoked: 40 Smoked in Last 30 Days: Yes Patient Interested in Nicotine Replacement: No Patient Given Instructions on How to Stop Smoking: No Second Hand Smoke Exposure: Yes Use of substances other than those prescribed or required for medical reasons: No Substance Use Type: Heroin and Marijuana Currently Displaying Signs/Symptoms of Drug Intoxication Withdrawal: No Any prior treatment program specific to substance use: Yes Have you been hit, kicked, punched, or otherwise hurt by someone within the past year? If so, by whom?: No Do you feel safe in your current relationship?: Yes Is there a partner from a previous relationship who is making you feel unsafe now?: No Are you made to feel afraid or neglected: No Advance Directives: No Advance Directives Information Provided: No Do you have thoughts of harming others: None Do you have a plan to hurt others: No Plan Recently lost weight without trying: No service: No Current occupational status: unemployed and other Meds Allergies Allergy/AdvReac Type Severity Reaction Status Date / Time Iodinated Contrast Media Allergy Severe ANAPHYLAXIS Verified 04/18/20 00:44 [CONTRAST, IV] amoxicillin [AMOXICILLIN] Allergy Intermediate NAUSEA & Verified 04/18/20 00:44 VOMITING lamotrigine [From LAMICTAL] Allergy Intermediate RASH Verified 04/18/20 00:44 Sulfa (Sulfonamide Allergy Intermediate Rash Verified 04/18/20 00:44 Antibiotics) [SULFA (SULFONAMIDE ANTIBIOTICS)] sulfamethoxazole Allergy Intermediate Rash Verified 04/18/20 00:44 [From BACTRIM] trimethoprim [From BACTRIM] Allergy Intermediate Rash Verified 04/18/20 00:44 Active Medications: Current Medications Generic Name Dose Route Start Last Admin Trade Name Freq PRN Reason Stop Dose Admin Acetaminophen 325 mg 05/07/20 10:17 05/08/20 21:04 Acetaminophen 325 Mg Tablet PO 325 mg Q6H PRN Administration pain Albuterol Sulfate 2 puff 05/02/20 20:57 05/10/20 19:35 Albuterol Sulfate 90 Mcg 8 Gm Inhaler INHALE 2 puff Q4H PRN Administration Shortness Of Breath Baclofen 10 mg 05/02/20 21:00 05/10/20 20:16 Baclofen 10 Mg Tablet PO 10 mg BID LILLI Administration Calcium Carbonate 750 mg 05/02/20 20:57 05/10/20 18:38 Calcium Carbonate 750 Mg Tab.Chew PO 750 mg TID PRN Administration Heartburn Docusate Sodium 100 mg 05/02/20 20:57 Docusate Sodium 100 Mg Capsule PO BID PRN Constipation Fluticasone Propionate 2 puff 05/03/20 08:00 05/10/20 19:23 Fluticasone Propionate 250 Mcg Blst.W.Dev INHALE 2 puff RBID LILLI Administration Folic Acid 1 mg 05/03/20 09:00 05/10/20 08:34 Folic Acid 1 Mg Tablet PO 1 mg DAILY LILLI Administration Gabapentin 300 mg 05/02/20 21:00 05/10/20 20:16 Gabapentin 300 Mg Capsule PO 300 mg TID LILLI Administration Hydroxyzine HCl 25 mg 05/09/20 21:12 05/10/20 23:08 Hydroxyzine Hcl 25 Mg Tablet PO 25 mg Q8H PRN Administration anxiety/restlessness Albumin Human 100 mls @ 100 mls/hr 05/11/20 01:45 05/11/20 02:47 Kedbumin 25 % IV 05/11/20 03:44 100 mls/hr Q1H LILLI Administration Propofol 1,000 mg in 100 mls @ 0 mls/hr 05/11/20 01:45 05/11/20 02:48 Diprivan IVCONT 50 mcg/kg/min .Q0M LILLI 23.41 mls/hr Administration Protocol Per Protocol Pantoprazole Sodium 80 mg/ 100 mls @ 10 mls/hr 05/11/20 01:45 05/11/20 02:44 Sodium Chloride IV 8 mg/hr .Q10H LILLI 10 mls/hr Administration 8 MG/HR Octreotide Acetate 500 mcg/ 501 mls @ 50.1 mls/hr 05/11/20 01:45 05/11/20 02:45 Sodium Chloride IVCONT 50 mcg/hr .Q10H LILLI 50.1 mls/hr Administration 50 MCG/HR Albumin Human 100 mls @ 100 mls/hr 05/11/20 02:15 05/11/20 02:48 Kedbumin 25 % IV 05/11/20 21:14 100 mls/hr Q6H LILLI Administration Ceftriaxone Sodium 1 gm/ 50 mls @ 100 mls/hr 05/11/20 21:00 Sodium Chloride IV Q24H LILLI Azithromycin 500 mg/ Sodium 250 mls @ 125 mls/hr 05/11/20 03:15 Chloride IV Q24H LILLI Lactulose 30 gm 05/02/20 21:00 05/10/20 20:17 Lactulose 20 Gm/30 Ml Solution PO 30 gm TID LILLI Administration Loratadine 10 mg 05/03/20 09:00 05/10/20 08:34 Loratadine 10 Mg Tablet PO 10 mg DAILY LILLI Administration Magnesium Oxide 400 mg 05/02/20 21:00 05/10/20 20:16 Magnesium Oxide 400 Mg Tablet PO 400 mg BID LILLI Administration Ondansetron HCl 4 mg 05/04/20 09:43 05/10/20 12:52 Ondansetron Hcl 4 Mg/2 Ml Vial IVPUSH 4 mg Q8H PRN Administration Nausea Oxycodone HCl 2.5 mg 05/04/20 12:10 05/10/20 23:08 Oxycodone Hcl Immed Release 5 Mg Tablet PO 2.5 mg Q6H PRN Administration pain Pantoprazole Sodium 40 mg 05/09/20 09:15 05/10/20 16:00 Pantoprazole Sodium 40 Mg/10 Ml Vial IVPUSH 40 mg BID@0630,1630 LILLI Administration Pyridoxine HCl 50 mg 05/03/20 09:00 05/10/20 08:34 Pyridoxine Hcl (Vitamin B6) 50 Mg Tablet PO 50 mg DAILY LILLI Administration Rifaximin 550 mg 05/02/20 21:00 05/10/20 20:15 Rifaximin 550 Mg Tablet PO 550 mg BID LILLI Administration Risperidone 1 mg 05/02/20 21:00 05/10/20 20:16 Risperidone 1 Mg Tablet PO 1 mg BID LILLI Administration Sodium Chloride 3 ml 05/03/20 00:00 05/10/20 23:40 0.9 % Sodium Chloride Flush 3 Ml Syringe IVFLUSH 3 ml QSHIFT [facility] Administration Thiamine HCl 100 mg 05/03/20 09:00 05/10/20 08:34 Thiamine Hcl 100 Mg Tablet PO 100 mg DAILY [facility] Administration Vitamin D 50 mcg 05/03/20 09:00 05/10/20 08:34 Cholecalciferol (Vitamin D3) 25 Mcg Tablet PO 50 mcg DAILY [facility] Administration Home Medications Medication Instructions Recorded Confirmed Last Taken Type Xifaxan 550 mg PO BID 01/20/20 05/02/20 02/18/20 History folic acid 1 mg PO DAILY 01/20/20 05/02/20 02/18/20 History potassium chloride 40 meq PO DAILY 01/20/20 05/02/20 02/18/20 History Flovent HFA 2 puff INHALATION BID 02/09/20 05/02/20 02/18/20 History albuterol sulfate 2 puff INHALATION Q4H PRN 02/09/20 05/02/20 02/18/20 History calcium carbonate [Antacid Ext Str 1 tab PO TID PRN 02/09/20 05/02/20 02/18/20 History (calcium carb)] thiamine HCl (vitamin B1) 100 mg PO DAILY 02/09/20 05/02/20 02/18/20 History baclofen 10 mg PO BID 02/13/20 05/02/20 02/18/20 History cetirizine 10 mg PO DAILY 02/19/20 05/02/20 02/18/20 History pyridoxine (vitamin B6) 50 mg PO DAILY 02/19/20 05/02/20 02/18/20 History Stiolto Respimat 2 puff INHALATION DAILY 02/26/20 05/02/20 Unknown History buprenorphine 1 patch TRANSDERMAL QWEEK 04/18/20 04/18/20 Unknown History cholecalciferol (vitamin D3) 50 mcg PO DAILY 04/18/20 05/02/20 Unknown History [Vitamin D3] docusate sodium 100 mg PO BID PRN 04/18/20 05/02/20 Unknown History gabapentin 300 mg PO TID 04/18/20 05/02/20 Unknown History magnesium oxide 400 mg PO BID 04/18/20 05/02/20 Unknown History omeprazole 20 mg PO BID@0630,1630 04/18/20 05/02/20 Unknown History risperidone 1 mg PO BID 04/18/20 05/02/20 Unknown History spironolactone 25 mg PO DAILY 04/18/20 05/02/20 Unknown History torsemide 40 mg PO DAILY 04/18/20 04/18/20 Unknown History Physical Exam Vital Signs: Vital Signs: Last Vital Signs Temp 90.3 F L 05/11/20 02:03 Pulse 76 05/11/20 02:03 Resp 20 05/11/20 02:03 BP 123/64 05/11/20 02:03 Pulse Ox 100 05/11/20 02:03 Body Mass Index 32.5 Results Labs CBC & Chem 7: 05/11/20 05:34 05/11/20 05:34 Labs: Short CBC 05/10/20 05/11/20 Range/Units 06:38 01:25 WBC 17.6 H 20.8 H (4.8-10.8) X10*3/uL Hgb 7.7 L 7.2 L (12.0-16.0) g/dl Hct 22.4 L 21.1 L (37-47) % Plt Count 72 L 75 L (160-400) X10*3/uL BMP 05/10/20 05/11/20 05/11/20 06:38 01:25 01:25 Sodium 125 L Potassium 4.9 Chloride 96 Carbon Dioxide 22 BUN 17 H Creatinine 0.60 Calcium 8.3 L 9.9 D Cancelled Liver Function 05/10/20 05/11/20 05/11/20 Range/Units 06:38 01:25 01:25 Total Bilirubin 13.6 H (0.0-1.0) mg/dL Direct Bilirubin 6.1 H (0.0-0.5) mg/dL AST 58 H (5-31) U/L ALT 23 (0-31) U/L Alkaline Phosphatase 125 H (39-117) U/L Albumin 1.9 L 1.8 L Cancelled (3.5-5.0) g/dL Microbiology Microbiology Results: Microbiology 05/02/20 16:00 Blood - Venous Blood Culture - Final No growth after 5 days. 05/02/20 14:24 Blood - Venous Blood Culture - Final No growth after 5 days.
--- NOTE | 2020-05-11 03:09 | P.PNCC_ITS ---
Critical Care Event Note Summary Date of Service: 05/11/20 Code activated: Yes Narrative: At 12:30 a.m. and a code blue was called to the patient's room. I attended to it, nurses at bedside who had started CPR. Patient had no pulse, nonresponsive and not breathing. Was placed on the monitor, patient had no electrical activity either. Coordinated to run the code, CPR was continued, protocol followed and epinephrine ordered, Juventino placed subsequently, blood holden gar above 280, labs reviewed. Hospitalist in the room as well. I attempted to intubate the patient but there or oropharyngeal cavity of the patient is full of bright red blood, suctioned; with the aid of the ER physician Dr. Abbasi a 7.5 endotracheal tube was placed and had good color change on the capnography device. CPR was continued and other medications where being administered. During the code, I also placed a 15g intraosseous line on the left upper tibia area with good flush and flow. It was secured, at this point, ACLS protocol will be continued by the hospitalist. Critical care time spend with this patient 20 minutes. This case had a high probability of a clinically significant, sudden, or life threatening deterioration of this patient's condition which required my full and direct attention, intervention and personal management; all of the above was completely separate from the patient's transfer and care in the ICU, as well as any separate procedures. Critical Care Time (minutes): 20
--- NOTE | 2020-05-11 03:11 | PM.GIPN ---
Subjective Subjective Date of Service: 05/11/20 Interval History: 55 yo patient known to me with end stage chronic liver disease was coded early this AM, now in ICU. She has been actively bleeding. Patient has known TIPS in place. She has a coagulopathy, and severe hypoalbuminemia. VS have remained stable. She is continues to actively bleed up into her oral pharynx. Physical Exam Vital Signs: Vital Signs: Last Vital Signs Temp 90.3 F L 05/11/20 02:03 Pulse 76 05/11/20 02:03 Resp 20 05/11/20 02:03 BP 123/64 05/11/20 02:03 Pulse Ox 100 05/11/20 02:03 Body Mass Index 32.5 Const: General: ill appearing and other (sedated, intubated.) Nutritional Appearance: obese Resp: Other: Intubated, on respirator sedated with Propofol Cardio: Rate: regular rate Rhythm: regular rhythm GI: Inspection: Yes distended (firm) Palpation (GI): Firmness to palpation present (GI) Percussion: Yes tympanic to percussion Extrem: General: Yes pedal edema (3+) Objective Data Labs CBC & Chem 7: 05/11/20 01:25 05/10/20 06:38 Labs: Laboratory Results - last 24 hr 05/08/20 05/10/20 05/10/20 08:37 06:38 06:38 WBC 17.6 H RBC 2.37 L D Hgb 7.7 L Hct 22.4 L MCV 94.5 D MCH 32.5 MCHC 34.4 RDW 23.7 H Plt Count 72 L MPV 10.9 Immature Gran % (Auto) 2.8 H Neut % (Auto) 82.5 H Lymph % (Auto) 5.7 L [place] % (Auto) 7.2 Eos % (Auto) 1.5 Baso % (Auto) 0.3 Lymph # (Auto) 1.0 L [place] # (Auto) 1.3 H Eos # (Auto) 0.3 Baso # (Auto) 0.1 Abs Immat Gran (auto) 0.49 H Absolute Neuts (auto) 14.5 H Absolute Nucleated RBC 0.000 Nucleated RBC % (auto) 0.0 PT 22.2 H D INR 1.9 H Fibrinogen VBG pH VBG pCO2 VBG pO2 VBG HCO3 VBG O2 Saturation VBG Base Excess Sodium Potassium Chloride Carbon Dioxide Anion Gap BUN Creatinine Estim Creat Clear Calc Estimated GFR POC Glucose Fasting Glucose Lactic Acid Calcium Phosphorus Magnesium Total Bilirubin Direct Bilirubin AST ALT Alkaline Phosphatase Total Protein Albumin Blood Type A Negative Antibody Screen NEGATIVE Crossmatch See Detail 05/10/20 05/10/20 05/10/20 06:38 07:32 11:27 WBC RBC Hgb Hct MCV MCH MCHC RDW Plt Count MPV Immature Gran % (Auto) Neut % (Auto) Lymph % (Auto) [place] % (Auto) Eos % (Auto) Baso % (Auto) Lymph # (Auto) [place] # (Auto) Eos # (Auto) Baso # (Auto) Abs Immat Gran (auto) Absolute Neuts (auto) Absolute Nucleated RBC Nucleated RBC % (auto) PT INR Fibrinogen VBG pH VBG pCO2 VBG pO2 VBG HCO3 VBG O2 Saturation VBG Base Excess Sodium 125 L Potassium 4.9 Chloride 96 Carbon Dioxide 22 Anion Gap 12 BUN 17 H Creatinine 0.60 Estim Creat Clear Calc 102.5 Estimated GFR > 60 POC Glucose 126 H 177 H Fasting Glucose 113 H Lactic Acid Calcium 8.3 L Phosphorus Magnesium 2.1 Total Bilirubin 13.6 H Direct Bilirubin 6.1 H AST 58 H ALT 23 Alkaline Phosphatase 125 H Total Protein 4.8 L Albumin 1.9 L Blood Type Antibody Screen Crossmatch 05/10/20 05/10/20 05/11/20 16:36 20:58 00:44 WBC RBC Hgb Hct MCV MCH MCHC RDW Plt Count MPV Immature Gran % (Auto) Neut % (Auto) Lymph % (Auto) [place] % (Auto) Eos % (Auto) Baso % (Auto) Lymph # (Auto) [place] # (Auto) Eos # (Auto) Baso # (Auto) Abs Immat Gran (auto) Absolute Neuts (auto) Absolute Nucleated RBC Nucleated RBC % (auto) PT INR Fibrinogen VBG pH VBG pCO2 VBG pO2 VBG HCO3 VBG O2 Saturation VBG Base Excess Sodium Potassium Chloride Carbon Dioxide Anion Gap BUN Creatinine Estim Creat Clear Calc Estimated GFR POC Glucose 161 H 195 H 237 H Fasting Glucose Lactic Acid Calcium Phosphorus Magnesium Total Bilirubin Direct Bilirubin AST ALT Alkaline Phosphatase Total Protein Albumin Blood Type Antibody Screen Crossmatch 05/11/20 05/11/20 05/11/20 01:25 01:25 01:25 WBC 20.8 H RBC 2.19 L Hgb 7.2 L Hct 21.1 L MCV 96.3 MCH 32.9 MCHC 34.1 RDW 24.1 H Plt Count 75 L MPV 10.8 Immature Gran % (Auto) Neut % (Auto) Lymph % (Auto) [place] % (Auto) Eos % (Auto) Baso % (Auto) Lymph # (Auto) [place] # (Auto) Eos # (Auto) Baso # (Auto) Abs Immat Gran (auto) Absolute Neuts (auto) Absolute Nucleated RBC 0.020 H Nucleated RBC % (auto) 0.1 PT 21.9 H INR 1.8 H Fibrinogen 189 L VBG pH VBG pCO2 VBG pO2 VBG HCO3 VBG O2 Saturation VBG Base Excess Sodium Potassium Chloride Carbon Dioxide Anion Gap BUN Creatinine Estim Creat Clear Calc Estimated GFR POC Glucose Fasting Glucose Lactic Acid Calcium 9.9 D Phosphorus 4.6 H Magnesium 2.2 Total Bilirubin Direct Bilirubin AST ALT Alkaline Phosphatase Total Protein Albumin 1.8 L Blood Type Antibody Screen Crossmatch 05/11/20 05/11/20 05/11/20 01:25 01:25 01:25 WBC RBC Hgb Hct MCV MCH MCHC RDW Plt Count MPV Immature Gran % (Auto) Neut % (Auto) Lymph % (Auto) [place] % (Auto) Eos % (Auto) Baso % (Auto) Lymph # (Auto) [place] # (Auto) Eos # (Auto) Baso # (Auto) Abs Immat Gran (auto) Absolute Neuts (auto) Absolute Nucleated RBC Nucleated RBC % (auto) PT INR Fibrinogen VBG pH 7.32 VBG pCO2 39 VBG pO2 135 VBG HCO3 20 VBG O2 Saturation 99.0 VBG Base Excess -5.0 Sodium Potassium Chloride Carbon Dioxide Anion Gap BUN Creatinine Estim Creat Clear Calc Estimated GFR POC Glucose Fasting Glucose Lactic Acid 3.7 H* Calcium Phosphorus Magnesium Total Bilirubin Direct Bilirubin AST ALT Alkaline Phosphatase Total Protein Albumin Cancelled Blood Type Antibody Screen Crossmatch 05/11/20 01:25 WBC RBC Hgb Hct MCV MCH MCHC RDW Plt Count MPV Immature Gran % (Auto) Neut % (Auto) Lymph % (Auto) [place] % (Auto) Eos % (Auto) Baso % (Auto) Lymph # (Auto) [place] # (Auto) Eos # (Auto) Baso # (Auto) Abs Immat Gran (auto) Absolute Neuts (auto) Absolute Nucleated RBC Nucleated RBC % (auto) PT INR Fibrinogen VBG pH VBG pCO2 VBG pO2 VBG HCO3 VBG O2 Saturation VBG Base Excess Sodium Potassium Chloride Carbon Dioxide Anion Gap BUN Creatinine Estim Creat Clear Calc Estimated GFR POC Glucose Fasting Glucose Lactic Acid Calcium Cancelled Phosphorus Magnesium Total Bilirubin Direct Bilirubin AST ALT Alkaline Phosphatase Total Protein Albumin Blood Type Antibody Screen Crossmatch Microbiology Microbiology Results: Microbiology 05/02/20 16:00 Blood - Venous Blood Culture - Final No growth after 5 days. 05/02/20 14:24 Blood - Venous Blood Culture - Final No growth after 5 days. Progress Note: A&P Assessment and plan (1) Acute upper GI bleed: Status: Acute Assessment and Plan: Continued active bleeding. Has received 4 units pc, FFP and albumin Will move forward with emergent egd to assess source and potential treatment. ? will be if TIPS is still patent. (2) Advanced hepatic cirrhosis: Status: Acute Assessment and Plan: Plan as above. Cristina had been followed @ [facility] (Dr. Martinez)but according to [facility] records had been taken off the Transplant list due to continued substance use. (See adm note.) (3) Anemia: Status: Acute Assessment and Plan: Has chronic low grade hemolysis. She has also had hemorroidal bleeding. This appears to be recurrent UGI bleeding. Will proceed with urgent EGD. Fall Risk Details Current Medications: Current Medications Generic Name Dose Route Start Last Admin Trade Name Freq PRN Reason Stop Dose Admin Acetaminophen 325 mg 05/07/20 10:17 05/08/20 21:04 Acetaminophen 325 Mg Tablet PO 325 mg Q6H PRN Administration pain Albuterol Sulfate 2 puff 05/02/20 20:57 05/10/20 19:35 Albuterol Sulfate 90 Mcg 8 Gm Inhaler INHALE 2 puff Q4H PRN Administration Shortness Of Breath Baclofen 10 mg 05/02/20 21:00 05/10/20 20:16 Baclofen 10 Mg Tablet PO 10 mg BID LILLI Administration Calcium Carbonate 750 mg 05/02/20 20:57 05/10/20 18:38 Calcium Carbonate 750 Mg Tab.Chew PO 750 mg TID PRN Administration Heartburn Docusate Sodium 100 mg 05/02/20 20:57 Docusate Sodium 100 Mg Capsule PO BID PRN Constipation Fluticasone Propionate 2 puff 05/03/20 08:00 05/10/20 19:23 Fluticasone Propionate 250 Mcg Blst.W.Dev INHALE 2 puff RBID LILLI Administration Folic Acid 1 mg 05/03/20 09:00 05/10/20 08:34 Folic Acid 1 Mg Tablet PO 1 mg DAILY LILLI Administration Gabapentin 300 mg 05/02/20 21:00 05/10/20 20:16 Gabapentin 300 Mg Capsule PO 300 mg TID LILLI Administration Hydroxyzine HCl 25 mg 05/09/20 21:12 05/10/20 23:08 Hydroxyzine Hcl 25 Mg Tablet PO 25 mg Q8H PRN Administration anxiety/restlessness Albumin Human 100 mls @ 100 mls/hr 05/11/20 01:45 05/11/20 03:04 Kedbumin 25 % IV 05/11/20 03:44 100 mls/hr Q1H LILLI Administration Propofol 1,000 mg in 100 mls @ 0 mls/hr 05/11/20 01:45 05/11/20 03:04 Diprivan IVCONT 50 mcg/kg/min .Q0M LILLI 23.41 mls/hr Administration Protocol Per Protocol Pantoprazole Sodium 80 mg/ 100 mls @ 10 mls/hr 05/11/20 01:45 05/11/20 02:44 Sodium Chloride IV 8 mg/hr .Q10H LILLI 10 mls/hr Administration 8 MG/HR Octreotide Acetate 500 mcg/ 501 mls @ 50.1 mls/hr 05/11/20 01:45 05/11/20 02:45 Sodium Chloride IVCONT 50 mcg/hr .Q10H LILLI 50.1 mls/hr Administration 50 MCG/HR Albumin Human 100 mls @ 100 mls/hr 05/11/20 02:15 05/11/20 02:48 Kedbumin 25 % IV 05/11/20 21:14 100 mls/hr Q6H LILLI Administration Ceftriaxone Sodium 1 gm/ 50 mls @ 100 mls/hr 05/11/20 21:00 Sodium Chloride IV Q24H LILLI Azithromycin 500 mg/ Sodium 250 mls @ 125 mls/hr 05/11/20 03:15 Chloride IV Q24H LILLI Lactulose 30 gm 05/02/20 21:00 05/10/20 20:17 Lactulose 20 Gm/30 Ml Solution PO 30 gm TID LILLI Administration Loratadine 10 mg 05/03/20 09:00 05/10/20 08:34 Loratadine 10 Mg Tablet PO 10 mg DAILY LILLI Administration Magnesium Oxide 400 mg 05/02/20 21:00 05/10/20 20:16 Magnesium Oxide 400 Mg Tablet PO 400 mg BID LILLI Administration Ondansetron HCl 4 mg 05/04/20 09:43 05/10/20 12:52 Ondansetron Hcl 4 Mg/2 Ml Vial IVPUSH 4 mg Q8H PRN Administration Nausea Oxycodone HCl 2.5 mg 05/04/20 12:10 05/10/20 23:08 Oxycodone Hcl Immed Release 5 Mg Tablet PO 2.5 mg Q6H PRN Administration pain Pantoprazole Sodium 40 mg 05/09/20 09:15 05/10/20 16:00 Pantoprazole Sodium 40 Mg/10 Ml Vial IVPUSH 40 mg BID@0630,1630 LILLI Administration Pyridoxine HCl 50 mg 05/03/20 09:00 05/10/20 08:34 Pyridoxine Hcl (Vitamin B6) 50 Mg Tablet PO 50 mg DAILY LILLI Administration Rifaximin 550 mg 05/02/20 21:00 05/10/20 20:15 Rifaximin 550 Mg Tablet PO 550 mg BID LILLI Administration Risperidone 1 mg 05/02/20 21:00 05/10/20 20:16 Risperidone 1 Mg Tablet PO 1 mg BID LILLI Administration Sodium Chloride 3 ml 05/03/20 00:00 05/10/20 23:40 0.9 % Sodium Chloride Flush 3 Ml Syringe IVFLUSH 3 ml QSHIFT LILLI Administration Thiamine HCl 100 mg 05/03/20 09:00 05/10/20 08:34 Thiamine Hcl 100 Mg Tablet PO 100 mg DAILY LILLI Administration Vitamin D 50 mcg 05/03/20 09:00 05/10/20 08:34 Cholecalciferol (Vitamin D3) 25 Mcg Tablet PO 50 mcg DAILY LILLI Administration Time Spent With Patient Time: Total time spent is greater than 50% in coordination of care (as documented) at patient's floor/unit and/or counseling patient: Time with patient: 25 - 35 minutes Procedures Date of Service Date of Service: 05/11/20
[2020-05-11 03:32] LABS: Reflex Lactate? Lactic Acid Added
[2020-05-11 04:01] LABS: ~Lactic Acid-LAB USE ONLY 2.6 mmol/L (0.5-2.0)
--- NOTE | 2020-05-11 04:01 | HO.ANESPROP2 ---
[facility] Active Problems Active Problems: All Active Problems (Updated 05/11/20 @ 03:19 by Teresa Garibay MD) Acute upper GI bleed (Acute) Chronic pain (Acute) Acute hyponatremia (Acute) Acute lower gastrointestinal bleeding (Acute) Abnormal CT scan, gastrointestinal tract (Acute) Hepatic encephalopathy (Acute) Chronic hyponatremia (Acute) Heroin abuse (Acute) Chronic liver failure (Acute) Advanced hepatic cirrhosis (Acute) Anemia (Acute) Past Medical History Medical History (Updated 05/11/20 @ 03:19 by Teresa Garibay MD) Abnormal CT scan, gastrointestinal tract Anemia Anxiety Chronic back pain Chronic hyponatremia Cirrhosis Coagulopathy Congestive heart failure COPD (chronic obstructive pulmonary disease) Depression Diabetes 1.5, managed as type 2 Hyponatremia Liver disease Pneumonia PTSD (post-traumatic stress disorder) Thrombocytopenia Functional capacity: independent ambulation Family History Family History Other HTN (hypertension) Surgical History Surgical History History of cholecystectomy Previous back surgery S/P TIPS (transjugular intrahepatic portosystemic shunt) Social History Social History Household Members: Significant Other Housing: Apartment Do you presently have visiting nurse or other home services: Yes Alcohol intake: former Smoking Status: Current every day smoker Tobacco Type: Cigarette Packs Per Day: 0.5 Cigarettes Per Day: 2 Years Smoked: 40 Smoked in Last 30 Days: Yes Patient Interested in Nicotine Replacement: No Patient Given Instructions on How to Stop Smoking: No Second Hand Smoke Exposure: Yes Use of substances other than those prescribed or required for medical reasons: No Substance Use Type: Heroin and Marijuana Currently Displaying Signs/Symptoms of Drug Intoxication Withdrawal: No Any prior treatment program specific to substance use: Yes Have you been hit, kicked, punched, or otherwise hurt by someone within the past year? If so, by whom?: No Do you feel safe in your current relationship?: Yes Is there a partner from a previous relationship who is making you feel unsafe now?: No Are you made to feel afraid or neglected: No Advance Directives: No Advance Directives Information Provided: No Do you have thoughts of harming others: None Do you have a plan to hurt others: No Plan Recently lost weight without trying: No service: No Current occupational status: unemployed and other Meds Allergies Allergy/AdvReac Type Severity Reaction Status Date / Time Iodinated Contrast Media Allergy Severe ANAPHYLAXIS Verified 04/18/20 00:44 [CONTRAST, IV] amoxicillin [AMOXICILLIN] Allergy Intermediate NAUSEA & Verified 04/18/20 00:44 VOMITING lamotrigine [From LAMICTAL] Allergy Intermediate RASH Verified 04/18/20 00:44 Sulfa (Sulfonamide Allergy Intermediate Rash Verified 04/18/20 00:44 Antibiotics) [SULFA (SULFONAMIDE ANTIBIOTICS)] sulfamethoxazole Allergy Intermediate Rash Verified 04/18/20 00:44 [From BACTRIM] trimethoprim [From BACTRIM] Allergy Intermediate Rash Verified 04/18/20 00:44 Active Medications: Current Medications Generic Name Dose Route Start Last Admin Trade Name Freq PRN Reason Stop Dose Admin Acetaminophen 325 mg 05/07/20 10:17 05/08/20 21:04 Acetaminophen 325 Mg Tablet PO 325 mg Q6H PRN Administration pain Albuterol Sulfate 2 puff 05/02/20 20:57 05/10/20 19:35 Albuterol Sulfate 90 Mcg 8 Gm Inhaler INHALE 2 puff Q4H PRN Administration Shortness Of Breath Baclofen 10 mg 05/02/20 21:00 05/10/20 20:16 Baclofen 10 Mg Tablet PO 10 mg BID LILLI Administration Calcium Carbonate 750 mg 05/02/20 20:57 05/10/20 18:38 Calcium Carbonate 750 Mg Tab.Chew PO 750 mg TID PRN Administration Heartburn Docusate Sodium 100 mg 05/02/20 20:57 Docusate Sodium 100 Mg Capsule PO BID PRN Constipation Fluticasone Propionate 2 puff 05/03/20 08:00 05/10/20 19:23 Fluticasone Propionate 250 Mcg Blst.W.Dev INHALE 2 puff RBID LILLI Administration Folic Acid 1 mg 05/03/20 09:00 05/10/20 08:34 Folic Acid 1 Mg Tablet PO 1 mg DAILY LILLI Administration Gabapentin 300 mg 05/02/20 21:00 05/10/20 20:16 Gabapentin 300 Mg Capsule PO 300 mg TID LILLI Administration Hydroxyzine HCl 25 mg 05/09/20 21:12 05/10/20 23:08 Hydroxyzine Hcl 25 Mg Tablet PO 25 mg Q8H PRN Administration anxiety/restlessness Propofol 1,000 mg in 100 mls @ 0 mls/hr 05/11/20 01:45 05/11/20 03:04 Diprivan IVCONT 50 mcg/kg/min .Q0M LILLI 23.41 mls/hr Administration Protocol Per Protocol Pantoprazole Sodium 80 mg/ 100 mls @ 10 mls/hr 05/11/20 01:45 05/11/20 02:44 Sodium Chloride IV 8 mg/hr .Q10H LILLI 10 mls/hr Administration 8 MG/HR Octreotide Acetate 500 mcg/ 501 mls @ 50.1 mls/hr 05/11/20 01:45 05/11/20 02:45 Sodium Chloride IVCONT 50 mcg/hr .Q10H LILLI 50.1 mls/hr Administration 50 MCG/HR Albumin Human 100 mls @ 100 mls/hr 05/11/20 02:15 05/11/20 03:51 Kedbumin 25 % IV 05/11/20 21:14 Infused Q6H LILLI Infusion Ceftriaxone Sodium 1 gm/ 50 mls @ 100 mls/hr 05/11/20 21:00 Sodium Chloride IV Q24H LILLI Azithromycin 500 mg/ Sodium 250 mls @ 125 mls/hr 05/11/20 22:00 Chloride IV Q24H LILLI Azithromycin 500 mg/ Sodium 250 mls @ 125 mls/hr 05/11/20 03:50 Chloride IV 05/11/20 05:49 NOW STA Lactulose 30 gm 05/02/20 21:00 05/10/20 20:17 Lactulose 20 Gm/30 Ml Solution PO 30 gm TID LILLI Administration Loratadine 10 mg 05/03/20 09:00 05/10/20 08:34 Loratadine 10 Mg Tablet PO 10 mg DAILY LILLI Administration Magnesium Oxide 400 mg 05/02/20 21:00 05/10/20 20:16 Magnesium Oxide 400 Mg Tablet PO 400 mg BID LILLI Administration Ondansetron HCl 4 mg 05/04/20 09:43 05/10/20 12:52 Ondansetron Hcl 4 Mg/2 Ml Vial IVPUSH 4 mg Q8H PRN Administration Nausea Oxycodone HCl 2.5 mg 05/04/20 12:10 05/10/20 23:08 Oxycodone Hcl Immed Release 5 Mg Tablet PO 2.5 mg Q6H PRN Administration pain Pantoprazole Sodium 40 mg 05/09/20 09:15 05/10/20 16:00 Pantoprazole Sodium 40 Mg/10 Ml Vial IVPUSH 40 mg BID@0630,1630 LILLI Administration Pyridoxine HCl 50 mg 05/03/20 09:00 05/10/20 08:34 Pyridoxine Hcl (Vitamin B6) 50 Mg Tablet PO 50 mg DAILY LILLI Administration Rifaximin 550 mg 05/02/20 21:00 05/10/20 20:15 Rifaximin 550 Mg Tablet PO 550 mg BID LILLI Administration Risperidone 1 mg 05/02/20 21:00 05/10/20 20:16 Risperidone 1 Mg Tablet PO 1 mg BID LILLI Administration Sodium Chloride 3 ml 05/03/20 00:00 05/10/20 23:40 0.9 % Sodium Chloride Flush 3 Ml Syringe IVFLUSH 3 ml QSHIFT LILLI Administration Thiamine HCl 100 mg 05/03/20 09:00 05/10/20 08:34 Thiamine Hcl 100 Mg Tablet PO 100 mg DAILY LILLI Administration Vitamin D 50 mcg 05/03/20 09:00 05/10/20 08:34 Cholecalciferol (Vitamin D3) 25 Mcg Tablet PO 50 mcg DAILY LILLI Administration Home Medications Medication Instructions Recorded Confirmed Last Taken Type Xifaxan 550 mg PO BID 01/20/20 05/02/20 02/18/20 History folic acid 1 mg PO DAILY 01/20/20 05/02/20 02/18/20 History potassium chloride 40 meq PO DAILY 01/20/20 05/02/20 02/18/20 History Flovent HFA 2 puff INHALATION BID 02/09/20 05/02/20 02/18/20 History albuterol sulfate 2 puff INHALATION Q4H PRN 02/09/20 05/02/20 02/18/20 History calcium carbonate [Antacid Ext Str 1 tab PO TID PRN 02/09/20 05/02/20 02/18/20 History (calcium carb)] thiamine HCl (vitamin B1) 100 mg PO DAILY 02/09/20 05/02/20 02/18/20 History baclofen 10 mg PO BID 02/13/20 05/02/20 02/18/20 History cetirizine 10 mg PO DAILY 12/07/0505/02/20 02/18/20 History pyridoxine (vitamin B6) 50 mg PO DAILY 02/19/20 05/02/20 02/18/20 History Stiolto Respimat 2 puff INHALATION DAILY 02/26/20 05/02/20 Unknown History buprenorphine 1 patch TRANSDERMAL QWEEK 04/18/20 04/18/20 Unknown History cholecalciferol (vitamin D3) 50 mcg PO DAILY 04/18/20 05/02/20 Unknown History [Vitamin D3] docusate sodium 100 mg PO BID PRN 04/18/20 05/02/20 Unknown History gabapentin 300 mg PO TID 04/18/20 05/02/20 Unknown History magnesium oxide 400 mg PO BID 04/18/20 05/02/20 Unknown History omeprazole 20 mg PO BID@0630,1630 04/18/20 05/02/20 Unknown History risperidone 1 mg PO BID 04/18/20 05/02/20 Unknown History spironolactone 25 mg PO DAILY 04/18/20 05/02/20 Unknown History torsemide 40 mg PO DAILY 04/18/20 04/18/20 Unknown History Exam Exam Date and Time: May 11, 2020 0401 Height,Weight and Vital Signs: Height 5 ft 1 in Weight 78.018 kg Last Vital Signs Temp 90.1 F L 05/11/20 03:41 Pulse 84 05/11/20 03:41 Resp 16 05/11/20 03:41 BP 110/52 L 05/11/20 03:41 Pulse Ox 98 05/11/20 03:41 Pertinent Lab Results Pertinent Lab Results: Laboratory Tests 05/02/20 05/02/20 05/02/20 14:24 14:25 14:25 WBC 10.4 RBC 2.46 L D Hgb 8.6 L Hct 25.6 L MCV 104.1 H MCH 35.0 H MCHC 33.6 RDW 21.4 H Plt Count 68 L MPV 11.1 Immature Gran % (Auto) 2.3 H Neut % (Auto) 79.2 H Lymph % (Auto) 8.1 L [place] % (Auto) 9.3 Eos % (Auto) 0.8 Baso % (Auto) 0.3 Lymph # (Auto) 0.9 L [place] # (Auto) 1.0 Eos # (Auto) 0.1 Baso # (Auto) 0.0 Abs Immat Gran (auto) 0.24 H Absolute Neuts (auto) 8.3 Absolute Nucleated RBC 0.000 Nucleated RBC % (auto) 0.0 Smear Tech's Comments Smear Path Review PT 26.4 H INR 2.2 H APTT 55.9 H Fibrinogen VBG pH VBG pCO2 VBG pO2 VBG HCO3 VBG O2 Saturation VBG Base Excess Sodium 122 L Potassium 4.6 D Chloride 90 L Carbon Dioxide 28 Anion Gap 9 L BUN 13 D Creatinine 0.80 Estim Creat Clear Calc 76.8 Estimated GFR > 60 POC Glucose Random Glucose 106 Fasting Glucose Osmolality Lactic Acid Calcium 7.9 L Phosphorus Magnesium 1.7 Total Bilirubin 10.0 H Direct Bilirubin 5.5 H GGT AST 69 H ALT 27 Alkaline Phosphatase 161 H Ammonia Lactate Dehydrogenase C-Reactive Protein B-Natriuretic Peptide Total Protein 5.7 L Albumin 2.1 L Prealbumin Urine Color Urine Appearance Urine pH Ur Specific [place] Urine Protein Urine Glucose (UA) Urine Ketones Urine Blood Urine Nitrite Ur Leukocyte Esterase Urine Osmolality Ur Random Sodium Urine Opiates Screen Ur Barbiturates Screen Ur Phencyclidine Scrn Ur Amphetamines Screen U Benzodiazepines Scrn Urine Cocaine Screen U Marijuana (THC) Screen Ethyl Alcohol COVID-19 ([facility]) COVID-19 Clin Com Blood Type Antibody Screen Crossmatch 05/02/20 05/02/20 05/02/20 14:25 14:25 14:25 WBC RBC Hgb Hct MCV MCH MCHC RDW Plt Count MPV Immature Gran % (Auto) Neut % (Auto) Lymph % (Auto) [place] % (Auto) Eos % (Auto) Baso % (Auto) Lymph # (Auto) [place] # (Auto) Eos # (Auto) Baso # (Auto) Abs Immat Gran (auto) Absolute Neuts (auto) Absolute Nucleated RBC Nucleated RBC % (auto) Smear Tech's Comments Smear Path Review PT INR APTT Fibrinogen VBG pH VBG pCO2 VBG pO2 VBG HCO3 VBG O2 Saturation VBG Base Excess Sodium Potassium Chloride Carbon Dioxide Anion Gap BUN Creatinine Estim Creat Clear Calc Estimated GFR POC Glucose Random Glucose Fasting Glucose Osmolality 265 L Lactic Acid 0.9 Calcium Phosphorus Magnesium Total Bilirubin Direct Bilirubin GGT AST ALT Alkaline Phosphatase Ammonia 72 H Lactate Dehydrogenase C-Reactive Protein B-Natriuretic Peptide Total Protein Albumin Prealbumin Urine Color Urine Appearance Urine pH Ur Specific [place] Urine Protein Urine Glucose (UA) Urine Ketones Urine Blood Urine Nitrite Ur Leukocyte Esterase Urine Osmolality Ur Random Sodium Urine Opiates Screen Ur Barbiturates Screen Ur Phencyclidine Scrn Ur Amphetamines Screen U Benzodiazepines Scrn Urine Cocaine Screen U Marijuana (THC) Screen Ethyl Alcohol COVID-19 ([facility]OV[facility]) COVID-19 [facility] Blood Type Antibody Screen Crossmatch 05/02/20 05/02/20 05/02/20 14:25 14:25 16:00 WBC RBC Hgb Hct MCV MCH MCHC RDW Plt Count MPV Immature Gran % (Auto) Neut % (Auto) Lymph % (Auto) [place] % (Auto) Eos % (Auto) Baso % (Auto) Lymph # (Auto) [place] # (Auto) Eos # (Auto) Baso # (Auto) Abs Immat Gran (auto) Absolute Neuts (auto) Absolute Nucleated RBC Nucleated RBC % (auto) Smear Tech's Comments Smear Path Review PT INR APTT Fibrinogen VBG pH VBG pCO2 VBG pO2 VBG HCO3 VBG O2 Saturation VBG Base Excess Sodium Potassium Chloride Carbon Dioxide Anion Gap BUN Creatinine Estim Creat Clear Calc Estimated GFR POC Glucose Random Glucose Fasting Glucose Osmolality Lactic Acid Calcium Phosphorus Magnesium Total Bilirubin Direct Bilirubin GGT AST ALT Alkaline Phosphatase Ammonia Lactate Dehydrogenase C-Reactive Protein B-Natriuretic Peptide 68 Total Protein Albumin Prealbumin Urine Color YELLOW Urine Appearance CLEAR Urine pH 7.5 Ur Specific [place] 1.010 Urine Protein NEG Urine Glucose (UA) NEG Urine Ketones NEG Urine Blood NEG Urine Nitrite NEG Ur Leukocyte Esterase NEG Urine Osmolality Ur Random Sodium Urine Opiates Screen Ur Barbiturates Screen Ur Phencyclidine Scrn Ur Amphetamines Screen U Benzodiazepines Scrn Urine Cocaine Screen U Marijuana (THC) Screen Ethyl Alcohol < 10 COVID-19 ([facility]) COVID-19 [facility] Blood Type Antibody Screen Crossmatch 05/02/20 05/02/20 05/02/20 16:00 16:00 16:00 WBC RBC Hgb Hct MCV MCH MCHC RDW Plt Count MPV Immature Gran % (Auto) Neut % (Auto) Lymph % (Auto) [place] % (Auto) Eos % (Auto) Baso % (Auto) Lymph # (Auto) [place] # (Auto) Eos # (Auto) Baso # (Auto) Abs Immat Gran (auto) Absolute Neuts (auto) Absolute Nucleated RBC Nucleated RBC % (auto) Smear Tech's Comments Smear Path Review PT INR APTT Fibrinogen VBG pH VBG pCO2 VBG pO2 VBG HCO3 VBG O2 Saturation VBG Base Excess Sodium Potassium Chloride Carbon Dioxide Anion Gap BUN Creatinine Estim Creat Clear Calc Estimated GFR POC Glucose Random Glucose Fasting Glucose Osmolality Lactic Acid Calcium Phosphorus Magnesium Total Bilirubin Direct Bilirubin GGT AST ALT Alkaline Phosphatase Ammonia Lactate Dehydrogenase C-Reactive Protein B-Natriuretic Peptide Total Protein Albumin Prealbumin Urine Color Urine Appearance Urine pH Ur Specific [place] Urine Protein Urine Glucose (UA) Urine Ketones Urine Blood Urine Nitrite Ur Leukocyte Esterase Urine Osmolality 178 L Ur Random Sodium < 20.0 Urine Opiates Screen Not Detected Ur Barbiturates Screen Not Detected Ur Phencyclidine Scrn Not Detected Ur Amphetamines Screen Not Detected U Benzodiazepines Scrn Not Detected Urine Cocaine Screen Not Detected U Marijuana (THC) Screen Not Detected Ethyl Alcohol COVID-19 ([facility]) [facility] Blood Type Antibody Screen Crossmatch 05/02/20 05/02/20 05/02/20 18:32 18:33 18:40 WBC RBC Hgb Hct MCV MCH MCHC RDW Plt Count MPV Immature Gran % (Auto) Neut % (Auto) Lymph % (Auto) [place] % (Auto) Eos % (Auto) Baso % (Auto) Lymph # (Auto) [place] # (Auto) Eos # (Auto) Baso # (Auto) Abs Immat Gran (auto) Absolute Neuts (auto) Absolute Nucleated RBC Nucleated RBC % (auto) Smear Tech's Comments Smear Path Review PT INR APTT Fibrinogen VBG pH VBG pCO2 VBG pO2 VBG HCO3 VBG O2 Saturation VBG Base Excess Sodium Potassium Chloride Carbon Dioxide Anion Gap BUN Creatinine Estim Creat Clear Calc Estimated GFR POC Glucose 103 Random Glucose Fasting Glucose Osmolality Lactic Acid Calcium Phosphorus Magnesium Total Bilirubin Direct Bilirubin GGT AST ALT Alkaline Phosphatase Ammonia Lactate Dehydrogenase C-Reactive Protein B-Natriuretic Peptide Total Protein Albumin Prealbumin Urine Color Urine Appearance Urine pH Ur Specific [place] Urine Protein Urine Glucose (UA) Urine Ketones Urine Blood Urine Nitrite Ur Leukocyte Esterase Urine Osmolality Ur Random Sodium Urine Opiates Screen Ur Barbiturates Screen Ur Phencyclidine Scrn Ur Amphetamines Screen U Benzodiazepines Scrn Urine Cocaine Screen U Marijuana (THC) Screen Ethyl Alcohol COVID-19 ([facility]OV[facility]) Negative [facility] See Note Blood Type A Negative Antibody Screen NEGATIVE Crossmatch 05/02/20 05/03/20 05/03/20 18:41 00:10 05:40 WBC 8.3 RBC 2.13 L Hgb 7.6 L Hct 22.8 L MCV 107.0 H MCH 35.7 H MCHC 33.3 RDW 21.1 H Plt Count 66 L MPV 11.3 Immature Gran % (Auto) 2.3 H Neut % (Auto) 76.3 H Lymph % (Auto) 10.0 L [place] % (Auto) 9.7 Eos % (Auto) 1.2 Baso % (Auto) 0.5 Lymph # (Auto) 0.8 L [place] # (Auto) 0.8 Eos # (Auto) 0.1 Baso # (Auto) 0.0 Abs Immat Gran (auto) 0.19 H Absolute Neuts (auto) 6.3 Absolute Nucleated RBC 0.000 Nucleated RBC % (auto) 0.0 Smear Tech's Comments Smear Path Review PT INR APTT Fibrinogen VBG pH VBG pCO2 VBG pO2 VBG HCO3 VBG O2 Saturation VBG Base Excess Sodium 125 L 125 L Potassium 4.1 Chloride 94 L Carbon Dioxide 24 Anion Gap 11 L BUN 11 Creatinine 0.66 Estim Creat Clear Calc 93.2 Estimated GFR > 60 POC Glucose Random Glucose 135 H Fasting Glucose Osmolality Lactic Acid Calcium 7.3 L D Phosphorus Magnesium Total Bilirubin Direct Bilirubin GGT AST ALT Alkaline Phosphatase Ammonia Lactate Dehydrogenase C-Reactive Protein B-Natriuretic Peptide Total Protein Albumin Prealbumin Urine Color Urine Appearance Urine pH Ur Specific [place] Urine Protein Urine Glucose (UA) Urine Ketones Urine Blood Urine Nitrite Ur Leukocyte Esterase Urine Osmolality Ur Random Sodium Urine Opiates Screen Ur Barbiturates Screen Ur Phencyclidine Scrn Ur Amphetamines Screen U Benzodiazepines Scrn Urine Cocaine Screen U Marijuana (THC) Screen Ethyl Alcohol COVID-19 ([facility]) COVID-19 Clin Com Blood Type Antibody Screen Crossmatch 05/03/20 05/03/20 05/03/20 05:40 05:40 07:35 WBC RBC Hgb Hct MCV MCH MCHC RDW Plt Count MPV Immature Gran % (Auto) Neut % (Auto) Lymph % (Auto) [place] % (Auto) Eos % (Auto) Baso % (Auto) Lymph # (Auto) [place] # (Auto) Eos # (Auto) Baso # (Auto) Abs Immat Gran (auto) Absolute Neuts (auto) Absolute Nucleated RBC Nucleated RBC % (auto) Smear Tech's Comments Smear Path Review PT 28.8 H INR 2.4 H APTT Fibrinogen VBG pH VBG pCO2 VBG pO2 VBG HCO3 VBG O2 Saturation VBG Base Excess Sodium 124 L Potassium 4.1 Chloride 93 L Carbon Dioxide 24 Anion Gap 11 L BUN 10 Creatinine 0.69 Estim Creat Clear Calc 89.1 Estimated GFR > 60 POC Glucose 103 Random Glucose 198 H D Fasting Glucose Osmolality Lactic Acid Calcium 7.4 L Phosphorus Magnesium Total Bilirubin 9.3 H Direct Bilirubin 4.8 H GGT AST 69 H ALT 23 Alkaline Phosphatase 128 H D Ammonia Lactate Dehydrogenase C-Reactive Protein B-Natriuretic Peptide Total Protein 5.1 L Albumin 1.8 L Prealbumin Urine Color Urine Appearance Urine pH Ur Specific [place] Urine Protein Urine Glucose (UA) Urine Ketones Urine Blood Urine Nitrite Ur Leukocyte Esterase Urine Osmolality Ur Random Sodium Urine Opiates Screen Ur Barbiturates Screen Ur Phencyclidine Scrn Ur Amphetamines Screen U Benzodiazepines Scrn Urine Cocaine Screen U Marijuana (THC) Screen Ethyl Alcohol COVID-19 ([facility]) COVID-19 [employer] Com Blood Type Antibody Screen Crossmatch 05/03/20 05/03/20 05/03/20 11:32 16:53 20:54 WBC RBC Hgb Hct MCV MCH MCHC RDW Plt Count MPV Immature Gran % (Auto) Neut % (Auto) Lymph % (Auto) [place] % (Auto) Eos % (Auto) Baso % (Auto) Lymph # (Auto) [place] # (Auto) Eos # (Auto) Baso # (Auto) Abs Immat Gran (auto) Absolute Neuts (auto) Absolute Nucleated RBC Nucleated RBC % (auto) Smear Tech's Comments Smear Path Review PT INR APTT Fibrinogen VBG pH VBG pCO2 VBG pO2 VBG HCO3 VBG O2 Saturation VBG Base Excess Sodium Potassium Chloride Carbon Dioxide Anion Gap BUN Creatinine Estim Creat Clear Calc Estimated GFR POC Glucose 125 H 159 H 141 H Random Glucose Fasting Glucose Osmolality Lactic Acid Calcium Phosphorus Magnesium Total Bilirubin Direct Bilirubin GGT AST ALT Alkaline Phosphatase Ammonia Lactate Dehydrogenase C-Reactive Protein B-Natriuretic Peptide Total Protein Albumin Prealbumin Urine Color Urine Appearance Urine pH Ur Specific [place] Urine Protein Urine Glucose (UA) Urine Ketones Urine Blood Urine Nitrite Ur Leukocyte Esterase Urine Osmolality Ur Random Sodium Urine Opiates Screen Ur Barbiturates Screen Ur Phencyclidine Scrn Ur Amphetamines Screen U Benzodiazepines Scrn Urine Cocaine Screen U Marijuana (THC) Screen Ethyl Alcohol COVID-19 ([facility]) COVID-19 [employer] Com Blood Type Antibody Screen Crossmatch 05/04/20 05/04/20 05/04/20 05:16 05:16 07:40 WBC 11.3 H RBC 2.16 L Hgb 7.6 L Hct 22.9 L MCV 106.0 H MCH 35.2 H MCHC 33.2 RDW 20.0 H Plt Count 75 L MPV 11.2 Immature Gran % (Auto) 2.1 H Neut % (Auto) 76.4 H Lymph % (Auto) 8.1 L [place] % (Auto) 12.2 H Eos % (Auto) 0.8 Baso % (Auto) 0.4 Lymph # (Auto) 0.9 L [place] # (Auto) 1.4 H Eos # (Auto) 0.1 Baso # (Auto) 0.0 Abs Immat Gran (auto) 0.24 H Absolute Neuts (auto) 8.6 H Absolute Nucleated RBC 0.000 Nucleated RBC % (auto) 0.0 Smear Tech's Comments Smear Path Review PT INR APTT Fibrinogen VBG pH VBG pCO2 VBG pO2 VBG HCO3 VBG O2 Saturation VBG Base Excess Sodium 121 L Potassium 4.0 Chloride 89 L Carbon Dioxide 28 Anion Gap 8 L BUN 8 L Creatinine 0.73 Estim Creat Clear Calc 84.2 Estimated GFR > 60 POC Glucose 130 H Random Glucose Fasting Glucose 116 H Osmolality Lactic Acid Calcium 7.6 L Phosphorus Magnesium Total Bilirubin Direct Bilirubin GGT AST ALT Alkaline Phosphatase Ammonia Lactate Dehydrogenase C-Reactive Protein B-Natriuretic Peptide Total Protein Albumin Prealbumin Urine Color Urine Appearance Urine pH Ur Specific [place] Urine Protein Urine Glucose (UA) Urine Ketones Urine Blood Urine Nitrite Ur Leukocyte Esterase Urine Osmolality Ur Random Sodium Urine Opiates Screen Ur Barbiturates Screen Ur Phencyclidine Scrn Ur Amphetamines Screen U Benzodiazepines Scrn Urine Cocaine Screen U Marijuana (THC) Screen Ethyl Alcohol COVID-19 ([facility]) COVID-19 Clin Com Blood Type Antibody Screen Crossmatch 05/04/20 05/04/20 05/04/20 11:12 16:43 20:32 WBC RBC Hgb Hct MCV MCH MCHC RDW Plt Count MPV Immature Gran % (Auto) Neut % (Auto) Lymph % (Auto) [place] % (Auto) Eos % (Auto) Baso % (Auto) Lymph # (Auto) [place] # (Auto) Eos # (Auto) Baso # (Auto) Abs Immat Gran (auto) Absolute Neuts (auto) Absolute Nucleated RBC Nucleated RBC % (auto) Smear Tech's Comments Smear Path Review PT INR APTT Fibrinogen VBG pH VBG pCO2 VBG pO2 VBG HCO3 VBG O2 Saturation VBG Base Excess Sodium Potassium Chloride Carbon Dioxide Anion Gap BUN Creatinine Estim Creat Clear Calc Estimated GFR POC Glucose 147 H 171 H 154 H Random Glucose Fasting Glucose Osmolality Lactic Acid Calcium Phosphorus Magnesium Total Bilirubin Direct Bilirubin GGT AST ALT Alkaline Phosphatase Ammonia Lactate Dehydrogenase C-Reactive Protein B-Natriuretic Peptide Total Protein Albumin Prealbumin Urine Color Urine Appearance Urine pH Ur Specific [place] Urine Protein Urine Glucose (UA) Urine Ketones Urine Blood Urine Nitrite Ur Leukocyte Esterase Urine Osmolality Ur Random Sodium Urine Opiates Screen Ur Barbiturates Screen Ur Phencyclidine Scrn Ur Amphetamines Screen U Benzodiazepines Scrn Urine Cocaine Screen U Marijuana (THC) Screen Ethyl Alcohol COVID-19 ([facility]OVANI) COVID-19 Clin Com Blood Type Antibody Screen Crossmatch 05/05/20 05/05/20 05/05/20 05:41 05:41 08:02 WBC 11.8 H RBC 2.12 L Hgb 7.6 L Hct 22.1 L MCV 104.2 H MCH 35.8 H MCHC 34.4 RDW 18.8 H Plt Count 75 L MPV 11.2 Immature Gran % (Auto) 2.6 H Neut % (Auto) 77.3 H Lymph % (Auto) 7.8 L [place] % (Auto) 11.2 H Eos % (Auto) 0.7 Baso % (Auto) 0.4 Lymph # (Auto) 0.9 L [place] # (Auto) 1.3 H Eos # (Auto) 0.1 Baso # (Auto) 0.1 Abs Immat Gran (auto) 0.31 H Absolute Neuts (auto) 9.1 H Absolute Nucleated RBC 0.000 Nucleated RBC % (auto) 0.0 Smear Tech's Comments Smear Path Review PT INR APTT Fibrinogen VBG pH VBG pCO2 VBG pO2 VBG HCO3 VBG O2 Saturation VBG Base Excess Sodium 124 L Potassium 4.5 Chloride 92 L Carbon Dioxide 25 Anion Gap 12 BUN 8 L Creatinine 0.67 Estim Creat Clear Calc 91.8 Estimated GFR > 60 POC Glucose 135 H Random Glucose Fasting Glucose 103 H Osmolality Lactic Acid Calcium 7.4 L Phosphorus Magnesium 2.1 Total Bilirubin Direct Bilirubin GGT 26 AST ALT Alkaline Phosphatase Ammonia Lactate Dehydrogenase 308 H C-Reactive Protein 1.11 H B-Natriuretic Peptide Total Protein Albumin 2.0 L Prealbumin 4.0 L Urine Color Urine Appearance Urine pH Ur Specific [place] Urine Protein Urine Glucose (UA) Urine Ketones Urine Blood Urine Nitrite Ur Leukocyte Esterase Urine Osmolality Ur Random Sodium Urine Opiates Screen Ur Barbiturates Screen Ur Phencyclidine Scrn Ur Amphetamines Screen U Benzodiazepines Scrn Urine Cocaine Screen U Marijuana (THC) Screen Ethyl Alcohol COVID-19 ([facility]) COVID-19 [employer] Com Blood Type Antibody Screen Crossmatch 05/05/20 05/05/20 05/05/20 11:06 16:27 20:29 WBC RBC Hgb Hct MCV MCH MCHC RDW Plt Count MPV Immature Gran % (Auto) Neut % (Auto) Lymph % (Auto) [place] % (Auto) Eos % (Auto) Baso % (Auto) Lymph # (Auto) [place] # (Auto) Eos # (Auto) Baso # (Auto) Abs Immat Gran (auto) Absolute Neuts (auto) Absolute Nucleated RBC Nucleated RBC % (auto) Smear Tech's Comments Smear Path Review PT INR APTT Fibrinogen VBG pH VBG pCO2 VBG pO2 VBG HCO3 VBG O2 Saturation VBG Base Excess Sodium Potassium Chloride Carbon Dioxide Anion Gap BUN Creatinine Estim Creat Clear Calc Estimated GFR POC Glucose 178 H 152 H 108 Random Glucose Fasting Glucose Osmolality Lactic Acid Calcium Phosphorus Magnesium Total Bilirubin Direct Bilirubin GGT AST ALT Alkaline Phosphatase Ammonia Lactate Dehydrogenase C-Reactive Protein B-Natriuretic Peptide Total Protein Albumin Prealbumin Urine Color Urine Appearance Urine pH Ur Specific [place] Urine Protein Urine Glucose (UA) Urine Ketones Urine Blood Urine Nitrite Ur Leukocyte Esterase Urine Osmolality Ur Random Sodium Urine Opiates Screen Ur Barbiturates Screen Ur Phencyclidine Scrn Ur Amphetamines Screen U Benzodiazepines Scrn Urine Cocaine Screen U Marijuana (THC) Screen Ethyl Alcohol COVID-19 ([facility]) COVID-19 Clin Com Blood Type Antibody Screen Crossmatch 05/06/20 05/06/20 05/06/20 06:16 06:16 07:13 WBC 11.3 H RBC 2.12 L Hgb 7.5 L Hct 22.1 L MCV 104.2 H MCH 35.4 H MCHC 33.9 RDW 18.5 H Plt Count 73 L MPV 11.6 Immature Gran % (Auto) 2.5 H Neut % (Auto) 79.4 H Lymph % (Auto) 6.9 L [place] % (Auto) 9.8 Eos % (Auto) 1.0 Baso % (Auto) 0.4 Lymph # (Auto) 0.8 L [place] # (Auto) 1.1 Eos # (Auto) 0.1 Baso # (Auto) 0.1 Abs Immat Gran (auto) 0.28 H Absolute Neuts (auto) 9.0 H Absolute Nucleated RBC 0.000 Nucleated RBC % (auto) 0.0 Smear Tech's Comments Smear Path Review PT INR APTT Fibrinogen VBG pH VBG pCO2 VBG pO2 VBG HCO3 VBG O2 Saturation VBG Base Excess Sodium 119 L* Potassium 4.8 Chloride 90 L Carbon Dioxide 24 Anion Gap 10 L BUN 9 Creatinine 0.61 Estim Creat Clear Calc 100.8 Estimated GFR > 60 POC Glucose 138 H Random Glucose Fasting Glucose 145 H D Osmolality Lactic Acid Calcium 7.8 L Phosphorus Magnesium Total Bilirubin Direct Bilirubin GGT AST ALT Alkaline Phosphatase Ammonia Lactate Dehydrogenase C-Reactive Protein B-Natriuretic Peptide Total Protein Albumin Prealbumin Urine Color Urine Appearance Urine pH Ur Specific [place] Urine Protein Urine Glucose (UA) Urine Ketones Urine Blood Urine Nitrite Ur Leukocyte Esterase Urine Osmolality Ur Random Sodium Urine Opiates Screen Ur Barbiturates Screen Ur Phencyclidine Scrn Ur Amphetamines Screen U Benzodiazepines Scrn Urine Cocaine Screen U Marijuana (THC) Screen Ethyl Alcohol COVID-19 ([facility]) COVID-19 Clin Com Blood Type Antibody Screen Crossmatch 05/06/20 05/06/20 05/06/20 11:10 16:33 20:35 WBC RBC Hgb Hct MCV MCH MCHC RDW Plt Count MPV Immature Gran % (Auto) Neut % (Auto) Lymph % (Auto) [place] % (Auto) Eos % (Auto) Baso % (Auto) Lymph # (Auto) [place] # (Auto) Eos # (Auto) Baso # (Auto) Abs Immat Gran (auto) Absolute Neuts (auto) Absolute Nucleated RBC Nucleated RBC % (auto) Smear Tech's Comments Smear Path Review PT INR APTT Fibrinogen VBG pH VBG pCO2 VBG pO2 VBG HCO3 VBG O2 Saturation VBG Base Excess Sodium Potassium Chloride Carbon Dioxide Anion Gap BUN Creatinine Estim Creat Clear Calc Estimated GFR POC Glucose 191 H 176 H 136 H Random Glucose Fasting Glucose Osmolality Lactic Acid Calcium Phosphorus Magnesium Total Bilirubin Direct Bilirubin GGT AST ALT Alkaline Phosphatase Ammonia Lactate Dehydrogenase C-Reactive Protein B-Natriuretic Peptide Total Protein Albumin Prealbumin Urine Color Urine Appearance Urine pH Ur Specific [place] Urine Protein Urine Glucose (UA) Urine Ketones Urine Blood Urine Nitrite Ur Leukocyte Esterase Urine Osmolality Ur Random Sodium Urine Opiates Screen Ur Barbiturates Screen Ur Phencyclidine Scrn Ur Amphetamines Screen U Benzodiazepines Scrn Urine Cocaine Screen U Marijuana (THC) Screen Ethyl Alcohol COVID-19 ([facility]) COVID-19 Clin Com Blood Type Antibody Screen Crossmatch 05/07/20 05/07/20 05/07/20 06:10 06:10 08:24 WBC 11.1 H RBC 2.14 L Hgb 7.5 L Hct 22.4 L MCV 104.7 H MCH 35.0 H MCHC 33.5 RDW 18.9 H Plt Count 75 L MPV 11.2 Immature Gran % (Auto) 2.8 H Neut % (Auto) 76.7 H Lymph % (Auto) 9.0 L [place] % (Auto) 9.4 Eos % (Auto) 1.6 Baso % (Auto) 0.5 Lymph # (Auto) 1.0 L [place] # (Auto) 1.0 Eos # (Auto) 0.2 Baso # (Auto) 0.1 Abs Immat Gran (auto) 0.31 H Absolute Neuts (auto) 8.5 H Absolute Nucleated RBC 0.000 Nucleated RBC % (auto) 0.0 Smear Tech's Comments VERIFIED Smear Path Review PT INR APTT Fibrinogen VBG pH VBG pCO2 VBG pO2 VBG HCO3 VBG O2 Saturation VBG Base Excess Sodium 120 L* Potassium 5.0 Chloride 91 L Carbon Dioxide 23 Anion Gap 11 L BUN 10 Creatinine 0.63 Estim Creat Clear Calc 97.6 Estimated GFR > 60 POC Glucose 128 H Random Glucose Fasting Glucose 196 H D Osmolality Lactic Acid Calcium 8.1 L Phosphorus Magnesium Total Bilirubin Direct Bilirubin GGT AST ALT Alkaline Phosphatase Ammonia Lactate Dehydrogenase C-Reactive Protein B-Natriuretic Peptide Total Protein Albumin Prealbumin Urine Color Urine Appearance Urine pH Ur Specific [place] Urine Protein Urine Glucose (UA) Urine Ketones Urine Blood Urine Nitrite Ur Leukocyte Esterase Urine Osmolality Ur Random Sodium Urine Opiates Screen Ur Barbiturates Screen Ur Phencyclidine Scrn Ur Amphetamines Screen U Benzodiazepines Scrn Urine Cocaine Screen U Marijuana (THC) Screen Ethyl Alcohol COVID-19 ([facility]) COVID-19 [employer] Com Blood Type Antibody Screen Crossmatch 02/05/07/20 05/07/20 11:12 16:39 20:21 WBC RBC Hgb Hct MCV MCH MCHC RDW Plt Count MPV Immature Gran % (Auto) Neut % (Auto) Lymph % (Auto) [place] % (Auto) Eos % (Auto) Baso % (Auto) Lymph # (Auto) [place] # (Auto) Eos # (Auto) Baso # (Auto) Abs Immat Gran (auto) Absolute Neuts (auto) Absolute Nucleated RBC Nucleated RBC % (auto) Smear Tech's Comments Smear Path Review PT INR APTT Fibrinogen VBG pH VBG pCO2 VBG pO2 VBG HCO3 VBG O2 Saturation VBG Base Excess Sodium Potassium Chloride Carbon Dioxide Anion Gap BUN Creatinine Estim Creat Clear Calc Estimated GFR POC Glucose 136 H 132 H 117 H Random Glucose Fasting Glucose Osmolality Lactic Acid Calcium Phosphorus Magnesium Total Bilirubin Direct Bilirubin GGT AST ALT Alkaline Phosphatase Ammonia Lactate Dehydrogenase C-Reactive Protein B-Natriuretic Peptide Total Protein Albumin Prealbumin Urine Color Urine Appearance Urine pH Ur Specific [place] Urine Protein Urine Glucose (UA) Urine Ketones Urine Blood Urine Nitrite Ur Leukocyte Esterase Urine Osmolality Ur Random Sodium Urine Opiates Screen Ur Barbiturates Screen Ur Phencyclidine Scrn Ur Amphetamines Screen U Benzodiazepines Scrn Urine Cocaine Screen U Marijuana (THC) Screen Ethyl Alcohol COVID-19 ([facility]) COVID-19 Clin Com Blood Type Antibody Screen Crossmatch 05/08/20 05/08/20 05/08/20 06:00 06:00 07:23 WBC 12.5 H RBC 1.91 L Hgb 6.9 L* Hct 20.3 L* MCV 106.3 H MCH 36.1 H MCHC 34.0 RDW 19.3 H Plt Count 81 L MPV 11.3 Immature Gran % (Auto) 2.6 H Neut % (Auto) 75.7 H Lymph % (Auto) 8.9 L [place] % (Auto) 11.3 H Eos % (Auto) 1.1 Baso % (Auto) 0.4 Lymph # (Auto) 1.1 L [place] # (Auto) 1.4 H Eos # (Auto) 0.1 Baso # (Auto) 0.1 Abs Immat Gran (auto) 0.32 H Absolute Neuts (auto) 9.4 H Absolute Nucleated RBC 0.000 Nucleated RBC % (auto) 0.0 Smear Tech's Comments VERIFIED Smear Path Review SEE NOTE PT INR APTT Fibrinogen VBG pH VBG pCO2 VBG pO2 VBG HCO3 VBG O2 Saturation VBG Base Excess Sodium 122 L Potassium 5.3 H Chloride 92 L Carbon Dioxide 23 Anion Gap 12 BUN 10 Creatinine 0.58 Estim Creat Clear Calc 106.0 Estimated GFR > 60 POC Glucose 121 H Random Glucose Fasting Glucose 104 H D Osmolality Lactic Acid Calcium 8.1 L Phosphorus Magnesium Total Bilirubin Direct Bilirubin GGT AST ALT Alkaline Phosphatase Ammonia Lactate Dehydrogenase C-Reactive Protein B-Natriuretic Peptide Total Protein Albumin Prealbumin Urine Color Urine Appearance Urine pH Ur Specific [place] Urine Protein Urine Glucose (UA) Urine Ketones Urine Blood Urine Nitrite Ur Leukocyte Esterase Urine Osmolality Ur Random Sodium Urine Opiates Screen Ur Barbiturates Screen Ur Phencyclidine Scrn Ur Amphetamines Screen U Benzodiazepines Scrn Urine Cocaine Screen U Marijuana (THC) Screen Ethyl Alcohol COVID-19 ([facility]) COVID-19 [employer] Com Blood Type Antibody Screen Crossmatch 05/08/20 05/08/20 05/08/20 08:37 11:23 16:40 WBC RBC Hgb Hct MCV MCH MCHC RDW Plt Count MPV Immature Gran % (Auto) Neut % (Auto) Lymph % (Auto) [place] % (Auto) Eos % (Auto) Baso % (Auto) Lymph # (Auto) [place] # (Auto) Eos # (Auto) Baso # (Auto) Abs Immat Gran (auto) Absolute Neuts (auto) Absolute Nucleated RBC Nucleated RBC % (auto) Smear Tech's Comments Smear Path Review PT INR APTT Fibrinogen VBG pH VBG pCO2 VBG pO2 VBG HCO3 VBG O2 Saturation VBG Base Excess Sodium Potassium Chloride Carbon Dioxide Anion Gap BUN Creatinine Estim Creat Clear Calc Estimated GFR POC Glucose 185 H 152 H Random Glucose Fasting Glucose Osmolality Lactic Acid Calcium Phosphorus Magnesium Total Bilirubin Direct Bilirubin GGT AST ALT Alkaline Phosphatase Ammonia Lactate Dehydrogenase C-Reactive Protein B-Natriuretic Peptide Total Protein Albumin Prealbumin Urine Color Urine Appearance Urine pH Ur Specific [place] Urine Protein Urine Glucose (UA) Urine Ketones Urine Blood Urine Nitrite Ur Leukocyte Esterase Urine Osmolality Ur Random Sodium Urine Opiates Screen Ur Barbiturates Screen Ur Phencyclidine Scrn Ur Amphetamines Screen U Benzodiazepines Scrn Urine Cocaine Screen U Marijuana (THC) Screen Ethyl Alcohol COVID-19 ([facility]) COVID-19 [employer] Com Blood Type A Negative Antibody Screen NEGATIVE Crossmatch See Detail 05/08/20 05/09/20 05/09/20 20:48 05:39 05:39 WBC 13.3 H RBC 1.96 L Hgb 6.6 L* Hct 19.8 L* MCV 101.0 H D MCH 33.7 H MCHC 33.3 RDW 21.1 H Plt Count 78 L MPV 11.2 Immature Gran % (Auto) 2.8 H Neut % (Auto) 80.8 H Lymph % (Auto) 7.4 L [place] % (Auto) 7.6 Eos % (Auto) 1.1 Baso % (Auto) 0.3 Lymph # (Auto) 1.0 L [place] # (Auto) 1.0 Eos # (Auto) 0.2 Baso # (Auto) 0.0 Abs Immat Gran (auto) 0.37 H Absolute Neuts (auto) 10.8 H Absolute Nucleated RBC 0.000 Nucleated RBC % (auto) 0.0 Smear Tech's Comments VERIFIED Smear Path Review PT INR APTT Fibrinogen VBG pH VBG pCO2 VBG pO2 VBG HCO3 VBG O2 Saturation VBG Base Excess Sodium 125 L Potassium 5.4 H Chloride 96 Carbon Dioxide 24 Anion Gap 10 L BUN 16 D Creatinine 0.66 Estim Creat Clear Calc 93.2 Estimated GFR > 60 POC Glucose 123 H Random Glucose Fasting Glucose 117 H Osmolality Lactic Acid Calcium 8.0 L Phosphorus Magnesium Total Bilirubin Direct Bilirubin GGT AST ALT Alkaline Phosphatase Ammonia Lactate Dehydrogenase C-Reactive Protein B-Natriuretic Peptide Total Protein Albumin Prealbumin Urine Color Urine Appearance Urine pH Ur Specific [place] Urine Protein Urine Glucose (UA) Urine Ketones Urine Blood Urine Nitrite Ur Leukocyte Esterase Urine Osmolality Ur Random Sodium Urine Opiates Screen Ur Barbiturates Screen Ur Phencyclidine Scrn Ur Amphetamines Screen U Benzodiazepines Scrn Urine Cocaine Screen U Marijuana (THC) Screen Ethyl Alcohol COVID-19 ([facility]) COVID-19 Clin Com Blood Type Antibody Screen Crossmatch 05/09/20 05/09/20 05/09/20 07:13 11:41 16:44 WBC RBC Hgb Hct MCV MCH MCHC RDW Plt Count MPV Immature Gran % (Auto) Neut % (Auto) Lymph % (Auto) [place] % (Auto) Eos % (Auto) Baso % (Auto) Lymph # (Auto) [place] # (Auto) Eos # (Auto) Baso # (Auto) Abs Immat Gran (auto) Absolute Neuts (auto) Absolute Nucleated RBC Nucleated RBC % (auto) Smear Tech's Comments Smear Path Review PT INR APTT Fibrinogen VBG pH VBG pCO2 VBG pO2 VBG HCO3 VBG O2 Saturation VBG Base Excess Sodium Potassium Chloride Carbon Dioxide Anion Gap BUN Creatinine Estim Creat Clear Calc Estimated GFR POC Glucose 188 H 168 H 178 H Random Glucose Fasting Glucose Osmolality Lactic Acid Calcium Phosphorus Magnesium Total Bilirubin Direct Bilirubin GGT AST ALT Alkaline Phosphatase Ammonia Lactate Dehydrogenase C-Reactive Protein B-Natriuretic Peptide Total Protein Albumin Prealbumin Urine Color Urine Appearance Urine pH Ur Specific [place] Urine Protein Urine Glucose (UA) Urine Ketones Urine Blood Urine Nitrite Ur Leukocyte Esterase Urine Osmolality Ur Random Sodium Urine Opiates Screen Ur Barbiturates Screen Ur Phencyclidine Scrn Ur Amphetamines Screen U Benzodiazepines Scrn Urine Cocaine Screen U Marijuana (THC) Screen Ethyl Alcohol COVID-19 ([facility]) COVID-19 Clin Com Blood Type Antibody Screen Crossmatch 05/09/20 05/10/20 05/10/20 20:32 06:38 06:38 WBC 17.6 H RBC 2.37 L D Hgb 7.7 L Hct 22.4 L MCV 94.5 D MCH 32.5 MCHC 34.4 RDW 23.7 H Plt Count 72 L MPV 10.9 Immature Gran % (Auto) 2.8 H Neut % (Auto) 82.5 H Lymph % (Auto) 5.7 L [place] % (Auto) 7.2 Eos % (Auto) 1.5 Baso % (Auto) 0.3 Lymph # (Auto) 1.0 L [place] # (Auto) 1.3 H Eos # (Auto) 0.3 Baso # (Auto) 0.1 Abs Immat Gran (auto) 0.49 H Absolute Neuts (auto) 14.5 H Absolute Nucleated RBC 0.000 Nucleated RBC % (auto) 0.0 Smear Tech's Comments Smear Path Review PT 22.2 H D INR 1.9 H APTT Fibrinogen VBG pH VBG pCO2 VBG pO2 VBG HCO3 VBG O2 Saturation VBG Base Excess Sodium Potassium Chloride Carbon Dioxide Anion Gap BUN Creatinine Estim Creat Clear Calc Estimated GFR POC Glucose 162 H Random Glucose Fasting Glucose Osmolality Lactic Acid Calcium Phosphorus Magnesium Total Bilirubin Direct Bilirubin GGT AST ALT Alkaline Phosphatase Ammonia Lactate Dehydrogenase C-Reactive Protein B-Natriuretic Peptide Total Protein Albumin Prealbumin Urine Color Urine Appearance Urine pH Ur Specific [place] Urine Protein Urine Glucose (UA) Urine Ketones Urine Blood Urine Nitrite Ur Leukocyte Esterase Urine Osmolality Ur Random Sodium Urine Opiates Screen Ur Barbiturates Screen Ur Phencyclidine Scrn Ur Amphetamines Screen U Benzodiazepines Scrn Urine Cocaine Screen U Marijuana (THC) Screen Ethyl Alcohol COVID-19 ([facility]) COVID-19 Clin Com Blood Type Antibody Screen Crossmatch 05/10/20 05/10/20 05/10/20 06:38 07:32 11:27 WBC RBC Hgb Hct MCV MCH MCHC RDW Plt Count MPV Immature Gran % (Auto) Neut % (Auto) Lymph % (Auto) [place] % (Auto) Eos % (Auto) Baso % (Auto) Lymph # (Auto) [place] # (Auto) Eos # (Auto) Baso # (Auto) Abs Immat Gran (auto) Absolute Neuts (auto) Absolute Nucleated RBC Nucleated RBC % (auto) Smear Tech's Comments Smear Path Review PT INR APTT Fibrinogen VBG pH VBG pCO2 VBG pO2 VBG HCO3 VBG O2 Saturation VBG Base Excess Sodium 125 L Potassium 4.9 Chloride 96 Carbon Dioxide 22 Anion Gap 12 BUN 17 H Creatinine 0.60 Estim Creat Clear Calc 102.5 Estimated GFR > 60 POC Glucose 126 H 177 H Random Glucose Fasting Glucose 113 H Osmolality Lactic Acid Calcium 8.3 L Phosphorus Magnesium 2.1 Total Bilirubin 13.6 H Direct Bilirubin 6.1 H GGT AST 58 H ALT 23 Alkaline Phosphatase 125 H Ammonia Lactate Dehydrogenase C-Reactive Protein B-Natriuretic Peptide Total Protein 4.8 L Albumin 1.9 L Prealbumin Urine Color Urine Appearance Urine pH Ur Specific [place] Urine Protein Urine Glucose (UA) Urine Ketones Urine Blood Urine Nitrite Ur Leukocyte Esterase Urine Osmolality Ur Random Sodium Urine Opiates Screen Ur Barbiturates Screen Ur Phencyclidine Scrn Ur Amphetamines Screen U Benzodiazepines Scrn Urine Cocaine Screen U Marijuana (THC) Screen Ethyl Alcohol COVID-19 ([facility]) COVID-19 [employer] Com Blood Type Antibody Screen Crossmatch 05/10/20 05/10/20 05/11/20 16:36 20:58 00:44 WBC RBC Hgb Hct MCV MCH MCHC RDW Plt Count MPV Immature Gran % (Auto) Neut % (Auto) Lymph % (Auto) [place] % (Auto) Eos % (Auto) Baso % (Auto) Lymph # (Auto) [place] # (Auto) Eos # (Auto) Baso # (Auto) Abs Immat Gran (auto) Absolute Neuts (auto) Absolute Nucleated RBC Nucleated RBC % (auto) Smear Tech's Comments Smear Path Review PT INR APTT Fibrinogen VBG pH VBG pCO2 VBG pO2 VBG HCO3 VBG O2 Saturation VBG Base Excess Sodium Potassium Chloride Carbon Dioxide Anion Gap BUN Creatinine Estim Creat Clear Calc Estimated GFR POC Glucose 161 H 195 H 237 H Random Glucose Fasting Glucose Osmolality Lactic Acid Calcium Phosphorus Magnesium Total Bilirubin Direct Bilirubin GGT AST ALT Alkaline Phosphatase Ammonia Lactate Dehydrogenase C-Reactive Protein B-Natriuretic Peptide Total Protein Albumin Prealbumin Urine Color Urine Appearance Urine pH Ur Specific [place] Urine Protein Urine Glucose (UA) Urine Ketones Urine Blood Urine Nitrite Ur Leukocyte Esterase Urine Osmolality Ur Random Sodium Urine Opiates Screen Ur Barbiturates Screen Ur Phencyclidine Scrn Ur Amphetamines Screen U Benzodiazepines Scrn Urine Cocaine Screen U Marijuana (THC) Screen Ethyl Alcohol COVID-19 ([facility]) COVID-19 Clin Com Blood Type Antibody Screen Crossmatch 05/11/20 05/11/20 05/11/20 01:25 01:25 01:25 WBC 20.8 H RBC 2.19 L Hgb 7.2 L Hct 21.1 L MCV 96.3 MCH 32.9 MCHC 34.1 RDW 24.1 H Plt Count 75 L MPV 10.8 Immature Gran % (Auto) Neut % (Auto) Lymph % (Auto) [place] % (Auto) Eos % (Auto) Baso % (Auto) Lymph # (Auto) [place] # (Auto) Eos # (Auto) Baso # (Auto) Abs Immat Gran (auto) Absolute Neuts (auto) Absolute Nucleated RBC 0.020 H Nucleated RBC % (auto) 0.1 Smear Tech's Comments Smear Path Review PT 21.9 H INR 1.8 H APTT Fibrinogen 189 L VBG pH VBG pCO2 VBG pO2 VBG HCO3 VBG O2 Saturation VBG Base Excess Sodium Potassium Chloride Carbon Dioxide Anion Gap BUN Creatinine Estim Creat Clear Calc Estimated GFR POC Glucose Random Glucose Fasting Glucose Osmolality Lactic Acid Calcium 9.9 D Phosphorus 4.6 H Magnesium 2.2 Total Bilirubin Direct Bilirubin GGT AST ALT Alkaline Phosphatase Ammonia Lactate Dehydrogenase C-Reactive Protein B-Natriuretic Peptide Total Protein Albumin 1.8 L Prealbumin Urine Color Urine Appearance Urine pH Ur Specific [place] Urine Protein Urine Glucose (UA) Urine Ketones Urine Blood Urine Nitrite Ur Leukocyte Esterase Urine Osmolality Ur Random Sodium Urine Opiates Screen Ur Barbiturates Screen Ur Phencyclidine Scrn Ur Amphetamines Screen U Benzodiazepines Scrn Urine Cocaine Screen U Marijuana (THC) Screen Ethyl Alcohol COVID-19 ([facility]) COVID-19 [employer] Com Blood Type Antibody Screen Crossmatch 05/11/20 05/11/20 05/11/20 01:25 01:25 01:25 WBC RBC Hgb Hct MCV MCH MCHC RDW Plt Count MPV Immature Gran % (Auto) Neut % (Auto) Lymph % (Auto) [place] % (Auto) Eos % (Auto) Baso % (Auto) Lymph # (Auto) [place] # (Auto) Eos # (Auto) Baso # (Auto) Abs Immat Gran (auto) Absolute Neuts (auto) Absolute Nucleated RBC Nucleated RBC % (auto) Smear Tech's Comments Smear Path Review PT INR APTT Fibrinogen VBG pH 7.32 VBG pCO2 39 VBG pO2 135 VBG HCO3 20 VBG O2 Saturation 99.0 VBG Base Excess -5.0 Sodium Potassium Chloride Carbon Dioxide Anion Gap BUN Creatinine Estim Creat Clear Calc Estimated GFR POC Glucose Random Glucose Fasting Glucose Osmolality Lactic Acid 3.7 H* Calcium Phosphorus Magnesium Total Bilirubin Direct Bilirubin GGT AST ALT Alkaline Phosphatase Ammonia Lactate Dehydrogenase C-Reactive Protein B-Natriuretic Peptide Total Protein Albumin Cancelled Prealbumin Urine Color Urine Appearance Urine pH Ur Specific [place] Urine Protein Urine Glucose (UA) Urine Ketones Urine Blood Urine Nitrite Ur Leukocyte Esterase Urine Osmolality Ur Random Sodium Urine Opiates Screen Ur Barbiturates Screen Ur Phencyclidine Scrn Ur Amphetamines Screen U Benzodiazepines Scrn Urine Cocaine Screen U Marijuana (THC) Screen Ethyl Alcohol COVID-19 (GIOVANI) COVID-19 [employer] Com Blood Type Antibody Screen Crossmatch 05/11/20 01:25 WBC RBC Hgb Hct MCV MCH MCHC RDW Plt Count MPV Immature Gran % (Auto) Neut % (Auto) Lymph % (Auto) [place] % (Auto) Eos % (Auto) Baso % (Auto) Lymph # (Auto) [place] # (Auto) Eos # (Auto) Baso # (Auto) Abs Immat Gran (auto) Absolute Neuts (auto) Absolute Nucleated RBC Nucleated RBC % (auto) Smear Tech's Comments Smear Path Review PT INR APTT Fibrinogen VBG pH VBG pCO2 VBG pO2 VBG HCO3 VBG O2 Saturation VBG Base Excess Sodium Potassium Chloride Carbon Dioxide Anion Gap BUN Creatinine Estim Creat Clear Calc Estimated GFR POC Glucose Random Glucose Fasting Glucose Osmolality Lactic Acid Calcium Cancelled Phosphorus Magnesium Total Bilirubin Direct Bilirubin GGT AST ALT Alkaline Phosphatase Ammonia Lactate Dehydrogenase C-Reactive Protein B-Natriuretic Peptide Total Protein Albumin Prealbumin Urine Color Urine Appearance Urine pH Ur Specific [place] Urine Protein Urine Glucose (UA) Urine Ketones Urine Blood Urine Nitrite Ur Leukocyte Esterase Urine Osmolality Ur Random Sodium Urine Opiates Screen Ur Barbiturates Screen Ur Phencyclidine Scrn Ur Amphetamines Screen U Benzodiazepines Scrn Urine Cocaine Screen U Marijuana (THC) Screen Ethyl Alcohol COVID-19 ([facility]) COVID-19 Clin Com Blood Type Antibody Screen Crossmatch Airway Other: intubated in the ICU Assessment and Plan Final Anesthetic Review NPO: Yes ASA Class: IV and Emergency Patient Risk: High Procedure Risk: Low Anesthetic Plan Anesthetic Plan: MAC: Disposition: Inp. Admit - ICU
--- NOTE | 2020-05-11 04:09 | W.PM.CCHP ---
Procedures Date of Service Date of Service: 05/11/20
--- NOTE | 2020-05-11 04:09 | W.PM.CCHP ---
Procedures Date of Service Date of Service: 05/11/20 IO Right Tibia: Time out performed: No (During a code) Anesthetic used: none IO instrument used to penetrate the cortex: battery powered IO drill Patient tolerated procedure: no complications Complications: none Additional comments: This was perform a bedside by me on the right tibia after identifying an appropriate landmarks and cleaning the area, using a power drill, a 15 gauge needle was inserted, the head was removed and IO site was secured and dressed. Blood was aspirated and this flushed well, this was used during the code for med administration.
[2020-05-11 05:32] LABS: Reflex Lactate? 2 Y
--- NOTE | 2020-05-11 05:41 | PM.OP ---
Brief Operative Note Date of Service: 05/11/20 Pre-op diagnosis: Presumptive GI BLEED; chronic liver disease with Coagulopathy, hypoalbuminemia, thrombocytopenia Post-op diagnosis: other (Lesion ? erosion/vessel--distal esoph-slight oozing, Small Hiatal Hernia, Portal Hypertensive gastropathy) Procedure: EGD with gastric lavage and Hemospray lesion distal esophagus COMMENT DESPITE NO BRISK GI BLEED--CONTINUES TO NEED SUCTIONING OF HEME FROM POSTERIOR PHARYNX--??EPISTAXIS Implants: NONE Surgeon: Teresa Garibay MD Anesthesia: GETA (MD HARSHA) and other Estimated blood loss (mL): 100 Pathology: none sent Condition: critical (BUT STABLE) Disposition: ICU
[2020-05-11 05:46] LABS: Basophils Absolute Auto 0.1 X10*3/uL (0.0-0.2); Basophils Percent Auto 0.3 % (0-2); Eosinophils Absolute Auto 0.1 X10*3/uL (0.0-0.4); Eosinophils Percent Auto 0.6 % (0-4); Hematocrit 26.8 % (37-47); Hemoglobin 9.2 g/dl (12.0-16.0); Imm Gran Abs Auto 0.24 X10*3/uL (0.00-0.03); Imm Gran Pct Auto 1.3 % (0.0-0.4); Lymphocytes Absolute Auto 0.4 X10*3/uL (1.2-4.9); Lymphocytes Percent Auto 2.1 % (20-40); MANUAL DIFF FLAG SCAN; Mean Corpuscular HGB Conc 34.3 g/dl (31.0-35.0); Mean Corpuscular Hemoglobin 31.5 pg (27.0-33.0); Mean Corpuscular Volume 91.8 fL (80-98); Mean Platelet Volume 10.2 fL (9.4-12.3); Monocytes Absolute Auto 0.7 X10*3/uL (0.1-1.2); Neutrophils Absolute Auto 16.8 X10*3/uL (2.0-8.3); Neutrophils Percent Auto 91.7 % (45-73); Red Blood Count 2.92 X10*6/uL (4.20-5.50); Red Cell Distribution Width 18.3 % (11.0-16.0); SCAN SMEAR FLAG 1; White Blood Count 18.3 X10*3/uL (4.8-10.8)
--- NOTE | 2020-05-11 05:48 | W.PM.OPN ---
Operative Note Operative Note Date of Service: 05/11/20 Narrative: EMERGENT EGD--ACUTE GI BLEED; NOW IN ICU Pre-op diagnosis: Presumptive GI BLEED; chronic liver disease with Coagulopathy, hypoalbuminemia, thrombocytopenia Post-op diagnosis: other (Lesion ? erosion/vessel--distal esoph-slight oozing, Small Hiatal Hernia, Portal Hypertensive gastropathy) Procedure: EGD with gastric lavage and Hemospray lesion distal esophagus COMMENT DESPITE NO BRISK GI BLEED--CONTINUES TO NEED SUCTIONING OF HEME FROM POSTERIOR PHARYNX--??EPISTAXIS Implants: NONE Surgeon: Teresa Garibay MD Anesthesia: GETA (MD HARSHA) Patient was intubated. Adult double channel upper scope used for this procedure. Scope passed with no difficulty ESOPHAGEAL mucosa had had some residual food residue and blood coating mucosa--procedure required lots of flushing and suctioning to see the underlying mucosa. One area about 2-3 mm in size with small clot and minor ooze was a constant finding in the distal esophagus. NO ESOPHAGEAL VARICES WERE SEEN. (This was area that we did Hemospray at end of procedure.) STOMACH: BLOOD PRESENT FLUSHE AND SUCTIONED--No active bleeding, Gastric mucosa had mottled appearance c/ PORTAL HYPERTENSIVE GASTROPATHY. DUODENOUM--NO ULCERS OR EROSIONS--Villi appeared normal. BLEEDING SEEMED TO CONTINUE THROUGHOUT THE PROCEDURE IN THE POSTERIOR PHARYNX--? SECONDARY TO coming from the nasal area posteriorly. Estimated blood loss (mL): 100 Pathology: none sent Condition: critical (BUT STABLE) Disposition: ICU PLan: Findings reviewed with Insole Coverer. Continue with current IV meds, etc. May need to address possibility of this being from the posterior nasal region. Check Doppler Flow of TIPS later in the day to assure patency. Reminder patient's primary GI physician is Dr. Dias @ [facility] [place]/ see event note.
[2020-05-11 05:52] LABS: Platelet Count 76 X10*3/uL (160-400)
[2020-05-11] MEDS: Azithromycin 500 MG in 0.9 % Sodium Chloride 250 ML 125 MG IV (05:54)
--- NOTE | 2020-05-11 05:54 | P.EN_ITS ---
Event Note Date of Service: 05/11/20 Event Note: GI PLAN: EGD FINDINGS DISCUSSED WITH ICU PA. NO VARICES. SMALL LESION IN DISTAL ESOPHAGUS OOZING COATED WITH HEMOSPRAY. THERE WAS STILL COPIOUS BLOOD TO BE SUCTIONED FROM MOUTH AND POSTERIOR PHARYNX--? EPISTAXIS? POSTERIOR BLEED? CONTINUE CURRENT IV FLUIDS, OCTREOTIDE, PROTONIX, ETC. PATIENT NEEDS DOPPLER U/S LATER THIS AM TO ASSESS PATENCY OF TIPS. IF STABILITY OF PATIENT A CONCERN CONSIDER TRANSFER [place] [facility] [place] RAYMUNDO--[facility]BO SIMMS MD HEPATOLOGY (PATIENT HAD BEEN REMOVED FROM THEIR TRANSPLANT LIST DUE TO HER CONTINUED DRINKING. SHE INSISTS THAT SHE HAS NOT HAD ANY ALCOHOL FOR 7 MONTHS WHEN SHE WAS ADMITTED THIS TIME. SHE HAS A F/U APPT WITH DR. RAYMUNDO IN EARLY JUNE. (I AM NOT MANAGING THIS LADY WHEN SHE IS AN OUTPATIENT.)
[2020-05-11 05:56] LABS: SLIDE REVIEW VERIFIED
[2020-05-11 06:12] LABS: ~Lactic Acid-LAB USE ONLY 2.2 mmol/L (0.5-2.0)
[2020-05-11 06:38] LABS: Anion Gap 14 (12-20); Blood Urea Nitrogen 37 mg/dL (9-16); Calcium 10.4 mg/dL (8.4-10.2); Carbon Dioxide 26 mmol/L (22-29); Chloride 96 mmol/L (96-108); Creatinine Clr Calc Pharmacy 86.6; Estimated Glomerular Filt Rate > 60; Glucose Random 204 mg/dL (60-115); Potassium 3.9 mmol/L (3.3-5.1); Sodium 132 mmol/L (135-145)
--- NOTE | 2020-05-11 07:01 | PC.NURSE ---
Transferred to ICU approx 0100 s/p code blue on S3. Blood pouring from mouth/nares/anus/endotube. (total 500 cc suctioned) TLC placed right ij. MTP called: 4u rbc, 2u platelets, 2u ffp transfused emergently. 7.5 ETT pulled back to 22 cm after CXR. Propofol for sedation. Octreotide and protonix gtts started. To OR approx 0400 for EGD. Continues to bleed profusely. Rodriguez placed. UOP approx 50 cc/hr Temp 89 F. Manjit hugger placed.
[2020-05-11 07:25] LABS: Glucose, Whole Blood 184 mg/dL (60-115)
[2020-05-11] MEDS: 0.9 % Sodium Chloride Flush 3 ML SYRINGE IVFLUSH (08:52)
--- NOTE | 2020-05-11 11:18 | PM.CCPN ---
Subjective Subjective Date of Service: 05/11/20 Interval History: Mrs. Nicole was transferred to ICU early this morning after a cardiac arrest on the medical curiel. I know the patient well from her last admission here last month. The patient is a 55-year-old female w chronic alcoholism, alcoholic cirrhosis, ascites, COPD, chronic back pain, and recurrent hyponatremia. H/o substance abuse including heroin. Smokes cigarettes daily. She?s been to the [facility] multiple times for hepatic encephalopathy and/or hyponatremia. Past surgical history: Cholecystectomy, esophageal varices, status post TIPS, back surgery. MEDICATIONS AT HOME include: Metformin, baclofen, gabapentin, lactulose, rifaximin, omeprazole, risperidone, spironolactone, torsemide, folate and thiamine. She was referred for admission to the hospital May 02 for another episode of hyponatremia, with sodium down to 122. She?s also had lower GI bleeding w maroon colored stools. As recently as yesterday, she was asking to go home. Last ammonia level was 72 on May 02. By report, she?d had discussions about hospice, but had declined at this point. A code blue was called at 12:30am this morning. A nurse check found her not breathing, unresponsive, and pulseless. Code ulysses was called. CPR and ACLS. Rhythm was PEA. A pulse was regained after 20min of chest compressions and five rounds of epinephrine. (Undetermined amount of arrest time prior to CPR starting.) Notably, at intubation, the patient appeared to be having profusely hematemesis, w bright red blood. After transport to ICU, the massive transfusion protocol was activated. A CVL was placed and she was given 4u RBCs, 2u FFP and 2bags of platelets. On my exam this morning, she?s unresponsive on fentanyl and propofol, and she?s continuously bleeding from the mouth. Temp 93.4?, HR 95, BP 94/39 on Levophed, Sat 93% on the ventilator, 30% FiO2. Puplis equal, about 4mm. No dolls? eyes. No clear JVD, chest is lightly rhonchorous, abdomen is very large and tense (probably has ascites); I cannot feel a liver. She has at least 2+ anasarca. LABORATORY DATA: As below. Last INR was 1.8. IMPRESSION: 1. Chronic alcoholism (by report). Notably, ethanol undetected on this admission. 2. Hepatic cirrhosis. Status post TIPS. 3. Coagulopathy secondary to cirrhosis. By history, she is not correctable. 4. Thrombocytopenia 5. Recurrent hyponatremia. Resolved. 6. s/p cardiac arrest, with 20 min CPR following unknown down time. No doll?s eyes. Brain injury is a certainty, but she?s still breathing spontaneously. We?ll turn the prop and fentanyl off, see if she wakes up. For now, I?m leaving her temperature where it is. 7. Acute respiratory failure. 8. NELSY. Prerenal indices. I discussed the above in multiple telephone calls with her family this morning. I first spoke with Malena Ronal, ([phone]) a friend who is her healthcare proxy. I told her that her overall medical condition was very bad and was fit for hospice, and then on top of that the cardiac arrest happened this morning. I described to her the physiology of cardiac arrest, CPR, and anoxic encephalopathy, part of which she knew already. Ultimately I suggested to her that it was time to let Madisyn go, and it was my recommendation that we turned the medicines off and let her in peace. She agreed. Malena gave me the patient's brother?s name and telephone number -- Elijah Nicole ([phone]) -- and I called him next. We had the same conversation. He also agreed with COMMUNITY RELATIONS COORDINATOR status. I then spoke with Loida Nicole [phone]), the patient?s knyxhh-is-yyl and geographically nearest relative. We had the same conversation and she also agreed with COMMUNITY RELATIONS COORDINATOR status. She came in to see the patient and I spoke with her at the bedside. Lastly, I called the patient?s boyfriend, Jose Rafael Foster ([phone]), and I spoke with him. He came in and spent time with her. At 4pm, we took her off the ventilator and put her on a room air T-piece. (I did not want to extubate the patient bec of continued bleeding from the mouth). She is off all meds. HR is 83, BP is 70s, RR about 9, Sat was about 80%. Critical care Time (including chart review): 120+ min Physical Exam Vital Signs: Vital Signs: Last Vital Signs Temp 95.5 F L 05/11/20 10:00 Pulse 95 05/11/20 10:48 Resp 20 05/11/20 10:48 BP 103/48 L 05/11/20 10:48 Pulse Ox 97 05/11/20 10:48 Body Mass Index 32.5 Objective Data Labs CBC & Chem 7: 05/11/20 05:34 05/11/20 05:34 Labs: Laboratory Results - last 24 hr 05/08/20 05/10/20 05/10/20 08:37 11:27 16:36 WBC RBC Hgb Hct MCV MCH MCHC RDW Plt Count MPV Immature Gran % (Auto) Neut % (Auto) Lymph % (Auto) [place] % (Auto) Eos % (Auto) Baso % (Auto) Lymph # (Auto) [place] # (Auto) Eos # (Auto) Baso # (Auto) Abs Immat Gran (auto) Absolute Neuts (auto) Absolute Nucleated RBC Nucleated RBC % (auto) Smear Tech's Comments PT INR Fibrinogen VBG pH VBG pCO2 VBG pO2 VBG HCO3 VBG O2 Saturation VBG Base Excess Sodium Potassium Chloride Carbon Dioxide Anion Gap BUN Creatinine Estim Creat Clear Calc Estimated GFR POC Glucose 177 H 161 H Random Glucose Lactic Acid Lactic Acid Fup @ 2Hr Lactic Acid Fup @ 4Hr Calcium Phosphorus Magnesium Albumin Blood Type A Negative Antibody Screen NEGATIVE Crossmatch See Detail 05/10/20 05/11/20 05/11/20 20:58 00:44 01:25 WBC 20.8 H RBC 2.19 L Hgb 7.2 L Hct 21.1 L MCV 96.3 MCH 32.9 MCHC 34.1 RDW 24.1 H Plt Count 75 L MPV 10.8 Immature Gran % (Auto) Neut % (Auto) Lymph % (Auto) [place] % (Auto) Eos % (Auto) Baso % (Auto) Lymph # (Auto) [place] # (Auto) Eos # (Auto) Baso # (Auto) Abs Immat Gran (auto) Absolute Neuts (auto) Absolute Nucleated RBC 0.020 H Nucleated RBC % (auto) 0.1 Smear Tech's Comments PT INR Fibrinogen VBG pH VBG pCO2 VBG pO2 VBG HCO3 VBG O2 Saturation VBG Base Excess Sodium Potassium Chloride Carbon Dioxide Anion Gap BUN Creatinine Estim Creat Clear Calc Estimated GFR POC Glucose 195 H 237 H Random Glucose Lactic Acid Lactic Acid Fup @ 2Hr Lactic Acid Fup @ 4Hr Calcium Phosphorus Magnesium Albumin Blood Type Antibody Screen Crossmatch 05/11/20 05/11/20 05/11/20 01:25 01:25 01:25 WBC RBC Hgb Hct MCV MCH MCHC RDW Plt Count MPV Immature Gran % (Auto) Neut % (Auto) Lymph % (Auto) [place] % (Auto) Eos % (Auto) Baso % (Auto) Lymph # (Auto) [place] # (Auto) Eos # (Auto) Baso # (Auto) Abs Immat Gran (auto) Absolute Neuts (auto) Absolute Nucleated RBC Nucleated RBC % (auto) Smear Tech's Comments PT 21.9 H INR 1.8 H Fibrinogen 189 L VBG pH 7.32 VBG pCO2 39 VBG pO2 135 VBG HCO3 20 VBG O2 Saturation 99.0 VBG Base Excess -5.0 Sodium Potassium Chloride Carbon Dioxide Anion Gap BUN Creatinine Estim Creat Clear Calc Estimated GFR POC Glucose Random Glucose Lactic Acid Lactic Acid Fup @ 2Hr Lactic Acid Fup @ 4Hr Calcium 9.9 D Phosphorus 4.6 H Magnesium 2.2 Albumin 1.8 L Blood Type Antibody Screen Crossmatch 05/11/20 05/11/20 05/11/20 01:25 01:25 01:25 WBC RBC Hgb Hct MCV MCH MCHC RDW Plt Count MPV Immature Gran % (Auto) Neut % (Auto) Lymph % (Auto) [place] % (Auto) Eos % (Auto) Baso % (Auto) Lymph # (Auto) [place] # (Auto) Eos # (Auto) Baso # (Auto) Abs Immat Gran (auto) Absolute Neuts (auto) Absolute Nucleated RBC Nucleated RBC % (auto) Smear Tech's Comments PT INR Fibrinogen VBG pH VBG pCO2 VBG pO2 VBG HCO3 VBG O2 Saturation VBG Base Excess Sodium Potassium Chloride Carbon Dioxide Anion Gap BUN Creatinine Estim Creat Clear Calc Estimated GFR POC Glucose Random Glucose Lactic Acid 3.7 H* Lactic Acid Fup @ 2Hr Lactic Acid Fup @ 4Hr Calcium Cancelled Phosphorus Magnesium Albumin Cancelled Blood Type Antibody Screen Crossmatch 05/11/20 05/11/20 05/11/20 03:22 05:34 05:34 WBC 18.3 H RBC 2.92 L D Hgb 9.2 L D Hct 26.8 L D MCV 91.8 MCH 31.5 MCHC 34.3 RDW 18.3 H Plt Count 76 L MPV 10.2 Immature Gran % (Auto) 1.3 H Neut % (Auto) 91.7 H Lymph % (Auto) 2.1 L [place] % (Auto) 4.0 Eos % (Auto) 0.6 Baso % (Auto) 0.3 Lymph # (Auto) 0.4 L [place] # (Auto) 0.7 Eos # (Auto) 0.1 Baso # (Auto) 0.1 Abs Immat Gran (auto) 0.24 H Absolute Neuts (auto) 16.8 H Absolute Nucleated RBC 0.000 Nucleated RBC % (auto) 0.0 Smear Tech's Comments VERIFIED PT INR Fibrinogen VBG pH VBG pCO2 VBG pO2 VBG HCO3 VBG O2 Saturation VBG Base Excess Sodium 132 L Potassium 3.9 D Chloride 96 Carbon Dioxide 26 Anion Gap 14 BUN 37 H D Creatinine 0.71 Estim Creat Clear Calc 86.6 Estimated GFR > 60 POC Glucose Random Glucose 204 H Lactic Acid Lactic Acid Fup @ 2Hr 2.6 H* Lactic Acid Fup @ 4Hr Calcium 10.4 H Phosphorus Magnesium Albumin Blood Type Antibody Screen Crossmatch 05/11/20 05/11/20 05:34 06:54 WBC RBC Hgb Hct MCV MCH MCHC RDW Plt Count MPV Immature Gran % (Auto) Neut % (Auto) Lymph % (Auto) [place] % (Auto) Eos % (Auto) Baso % (Auto) Lymph # (Auto) [place] # (Auto) Eos # (Auto) Baso # (Auto) Abs Immat Gran (auto) Absolute Neuts (auto) Absolute Nucleated RBC Nucleated RBC % (auto) Smear Tech's Comments PT INR Fibrinogen VBG pH VBG pCO2 VBG pO2 VBG HCO3 VBG O2 Saturation VBG Base Excess Sodium Potassium Chloride Carbon Dioxide Anion Gap BUN Creatinine Estim Creat Clear Calc Estimated GFR POC Glucose 184 H Random Glucose Lactic Acid Lactic Acid Fup @ 2Hr Lactic Acid Fup @ 4Hr 2.2 H* Calcium Phosphorus Magnesium Albumin Blood Type Antibody Screen Crossmatch Microbiology Microbiology Results: Microbiology 05/02/20 16:00 Blood - Venous Blood Culture - Final No growth after 5 days. 05/02/20 14:24 Blood - Venous Blood Culture - Final No growth after 5 days. Progress Note: A&P Time Spent With Patient Time: Total time spent is greater than 50% in coordination of care (as documented) at patient's floor/unit and/or counseling patient: Total time spent with greater than 50% in coordination of care (as documented) at patient's floor/unit and/or counseling patient:: 0 Critical Care Time Critical Care Time (minutes): 120
[2020-05-11 11:20] LABS: Glucose, Whole Blood 144 mg/dL (60-115)
--- NOTE | 2020-05-11 11:24 | MHC.CLN ---
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
[2020-05-11] MEDS: fentaNYL citrate/NS 1,000 MCG/100 ML PLAST..BAG 2.5 MCG IVCONT (12:04)
[2020-05-11] MEDS: propofoL 1,000 MG/100 ML VIAL 18.72 MG IVCONT (12:20)
--- NOTE | 2020-05-11 15:02 | PC.NURSE ---
Addendum entered by Mckenzie Garcia RN 05/11/20 15:33: [facility] [employer] notified, spoke with denise, Reference number [id number], requesting a call back at time of asystole Original Note: PT sedate on propofol this am, BP trending down and levophed needing to be started. Titrated up to 0.2 to maintain maps initially over 65. Copious amounts of bright red blood continues to poor out of mouth, MD aware. 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 Boyfriend (Jose Rafael) and sister in law (kervin) in to visit with patient. Levophed turned off and all drips discontinued. Pt started on fentanyl drip for comfort and remains on propofol. Vent remains on per MD due to copious blood pouring from mouth, vent settings adjusted by MD to ac rate of 6 and room air.
--- NOTE | 2020-05-11 17:56 | P.PNNP_ITS ---
Subjective Subjective Date of Service: 05/11/20 Interval history: 55 yo patient known to me with end stage chronic liver disease was coded early this AM, now in ICU. She had bleeding Intubated Physical Exam Vital Signs: Vital Signs: Last Vital Signs Temp 95.7 F L 05/11/20 12:00 Pulse 90 05/11/20 12:00 Resp 9 L 05/11/20 12:00 BP 88/41 L 05/11/20 12:00 Pulse Ox 91 L 05/11/20 12:00 Body Mass Index 32.5 Const: General: acute distress Orientation/consciousness: Other orientation findings (Intubated ) HENMT: Head: Yes normocephalic and Yes other (Jaundiced ) Neck: Neck: Yes supple and Yes no JVD Resp: Effort & Inspection: normal respiratory effort Auscultation: clear to auscultation bilaterally and diminished lung sounds Cardio: Jugular venous distension: no JVD Rate: regular rate Rhythm: regular rhythm Heart sounds: S1 normal heart sound present and S2 normal heart sound present GI: Palpation (GI): Soft to palpation Neuro: General: moves all extremities Extrem: General: Yes full ROM and No edema Objective Data Labs CBC & Chem 7: 05/11/20 05:34 05/11/20 05:34 Labs: Laboratory Results - last 24 hr 05/08/20 05/10/20 05/11/20 08:37 20:58 00:44 WBC RBC Hgb Hct MCV MCH MCHC RDW Plt Count MPV Immature Gran % (Auto) Neut % (Auto) Lymph % (Auto) [place] % (Auto) Eos % (Auto) Baso % (Auto) Lymph # (Auto) [place] # (Auto) Eos # (Auto) Baso # (Auto) Abs Immat Gran (auto) Absolute Neuts (auto) Absolute Nucleated RBC Nucleated RBC % (auto) Smear Tech's Comments PT INR Fibrinogen VBG pH VBG pCO2 VBG pO2 VBG HCO3 VBG O2 Saturation VBG Base Excess Sodium Potassium Chloride Carbon Dioxide Anion Gap BUN Creatinine Estim Creat Clear Calc Estimated GFR POC Glucose 195 H 237 H Random Glucose Lactic Acid Lactic Acid Fup @ 2Hr Lactic Acid Fup @ 4Hr Calcium Phosphorus Magnesium Albumin Blood Type A Negative Antibody Screen NEGATIVE Crossmatch See Detail 05/11/20 05/11/20 05/11/20 01:25 01:25 01:25 WBC 20.8 H RBC 2.19 L Hgb 7.2 L Hct 21.1 L MCV 96.3 MCH 32.9 MCHC 34.1 RDW 24.1 H Plt Count 75 L MPV 10.8 Immature Gran % (Auto) Neut % (Auto) Lymph % (Auto) [place] % (Auto) Eos % (Auto) Baso % (Auto) Lymph # (Auto) [place] # (Auto) Eos # (Auto) Baso # (Auto) Abs Immat Gran (auto) Absolute Neuts (auto) Absolute Nucleated RBC 0.020 H Nucleated RBC % (auto) 0.1 Smear Tech's Comments PT 21.9 H INR 1.8 H Fibrinogen 189 L VBG pH VBG pCO2 VBG pO2 VBG HCO3 VBG O2 Saturation VBG Base Excess Sodium Potassium Chloride Carbon Dioxide Anion Gap BUN Creatinine Estim Creat Clear Calc Estimated GFR POC Glucose Random Glucose Lactic Acid Lactic Acid Fup @ 2Hr Lactic Acid Fup @ 4Hr Calcium 9.9 D Phosphorus 4.6 H Magnesium 2.2 Albumin 1.8 L Blood Type Antibody Screen Crossmatch 05/11/20 05/11/20 05/11/20 01:25 01:25 01:25 WBC RBC Hgb Hct MCV MCH MCHC RDW Plt Count MPV Immature Gran % (Auto) Neut % (Auto) Lymph % (Auto) [place] % (Auto) Eos % (Auto) Baso % (Auto) Lymph # (Auto) [place] # (Auto) Eos # (Auto) Baso # (Auto) Abs Immat Gran (auto) Absolute Neuts (auto) Absolute Nucleated RBC Nucleated RBC % (auto) Smear Tech's Comments PT INR Fibrinogen VBG pH 7.32 VBG pCO2 39 VBG pO2 135 VBG HCO3 20 VBG O2 Saturation 99.0 VBG Base Excess -5.0 Sodium Potassium Chloride Carbon Dioxide Anion Gap BUN Creatinine Estim Creat Clear Calc Estimated GFR POC Glucose Random Glucose Lactic Acid 3.7 H* Lactic Acid Fup @ 2Hr Lactic Acid Fup @ 4Hr Calcium Phosphorus Magnesium Albumin Cancelled Blood Type Antibody Screen Crossmatch 05/11/20 05/11/20 05/11/20 01:25 03:22 05:34 WBC 18.3 H RBC 2.92 L D Hgb 9.2 L D Hct 26.8 L D MCV 91.8 MCH 31.5 MCHC 34.3 RDW 18.3 H Plt Count 76 L MPV 10.2 Immature Gran % (Auto) 1.3 H Neut % (Auto) 91.7 H Lymph % (Auto) 2.1 L [place] % (Auto) 4.0 Eos % (Auto) 0.6 Baso % (Auto) 0.3 Lymph # (Auto) 0.4 L [place] # (Auto) 0.7 Eos # (Auto) 0.1 Baso # (Auto) 0.1 Abs Immat Gran (auto) 0.24 H Absolute Neuts (auto) 16.8 H Absolute Nucleated RBC 0.000 Nucleated RBC % (auto) 0.0 Smear Tech's Comments VERIFIED PT INR Fibrinogen VBG pH VBG pCO2 VBG pO2 VBG HCO3 VBG O2 Saturation VBG Base Excess Sodium Potassium Chloride Carbon Dioxide Anion Gap BUN Creatinine Estim Creat Clear Calc Estimated GFR POC Glucose Random Glucose Lactic Acid Lactic Acid Fup @ 2Hr 2.6 H* Lactic Acid Fup @ 4Hr Calcium Cancelled Phosphorus Magnesium Albumin Blood Type Antibody Screen Crossmatch 05/11/20 05/11/20 05/11/20 05:34 05:34 06:54 WBC RBC Hgb Hct MCV MCH MCHC RDW Plt Count MPV Immature Gran % (Auto) Neut % (Auto) Lymph % (Auto) [place] % (Auto) Eos % (Auto) Baso % (Auto) Lymph # (Auto) [place] # (Auto) Eos # (Auto) Baso # (Auto) Abs Immat Gran (auto) Absolute Neuts (auto) Absolute Nucleated RBC Nucleated RBC % (auto) Smear Tech's Comments PT INR Fibrinogen VBG pH VBG pCO2 VBG pO2 VBG HCO3 VBG O2 Saturation VBG Base Excess Sodium 132 L Potassium 3.9 D Chloride 96 Carbon Dioxide 26 Anion Gap 14 BUN 37 H D Creatinine 0.71 Estim Creat Clear Calc 86.6 Estimated GFR > 60 POC Glucose 184 H Random Glucose 204 H Lactic Acid Lactic Acid Fup @ 2Hr Lactic Acid Fup @ 4Hr 2.2 H* Calcium 10.4 H Phosphorus Magnesium Albumin Blood Type Antibody Screen Crossmatch 05/11/20 11:00 WBC RBC Hgb Hct MCV MCH MCHC RDW Plt Count MPV Immature Gran % (Auto) Neut % (Auto) Lymph % (Auto) [place] % (Auto) Eos % (Auto) Baso % (Auto) Lymph # (Auto) [place] # (Auto) Eos # (Auto) Baso # (Auto) Abs Immat Gran (auto) Absolute Neuts (auto) Absolute Nucleated RBC Nucleated RBC % (auto) Smear Tech's Comments PT INR Fibrinogen VBG pH VBG pCO2 VBG pO2 VBG HCO3 VBG O2 Saturation VBG Base Excess Sodium Potassium Chloride Carbon Dioxide Anion Gap BUN Creatinine Estim Creat Clear Calc Estimated GFR POC Glucose 144 H Random Glucose Lactic Acid Lactic Acid Fup @ 2Hr Lactic Acid Fup @ 4Hr Calcium Phosphorus Magnesium Albumin Blood Type Antibody Screen Crossmatch Microbiology Microbiology Results: Microbiology 05/02/20 16:00 Blood - Venous Blood Culture - Final No growth after 5 days. 05/02/20 14:24 Blood - Venous Blood Culture - Final No growth after 5 days. Assessment & Plan Assessment and plan (1) Acute upper GI bleed: Status: Acute (2) Advanced hepatic cirrhosis: Status: Acute (3) Anemia: Status: Acute Assessment and Plan: (1) Chronic hyponatremia: (2) Acute hyponatremia: Assessment and Plan: Plan: - Na is better - Now in ICU -IV lasix as needed - Agree with d/c Urea - Check Na levels daily (3) Chronic liver failure: (4) Advanced hepatic cirrhosis: Time Spent With Patient Time: Total time spent is greater than 50% in coordination of care (as documented) at patient's floor/unit and/or counseling patient: Procedures Date of Service Date of Service: 05/11/20
[2020-05-11] MEDS: fentaNYL citrate/NS 1,000 MCG/100 ML PLAST..BAG 15 MCG IVCONT (20:15)
--- NOTE | 2020-05-12 02:51 | PC.NURSE ---
PT COMFORT MEASURES ONLY STATUS. ASSESSED PT AT 1999. PT RESTLESS. WAS RESPONSIVE TO NAME BY OPENING EYES. NOT FOLLOWING COMMANDS. WAS TRYING TO SIT UP. NO TRACKING OR FOLLOWING. FENTANYL DRIP INCREASED FROM 100 MCG/HR TO 150 MCG/HR WITH GOOD EFFECT. PT CALM AFTER THE MED INCREASE. ETT INTACT. SUCTIONING SMALL AMOUNT OF BLOOD FROM MOUTH. NO OTHER BLEEDING OBSERVED. TURNED AND REPOSITIONED. BP 80/47. MONITOR SHOWS SR, HR 80'S. O2 SAT MID 80'S.
--- NOTE | 2020-05-12 03:17 | PC.NURSE ---
pt found by staff to have removed ET tube on her own, suctioned for moderate amount of blood, fentynal drip increased to raphael of 200mcg/hr for comfort
[2020-05-12] MEDS: fentaNYL citrate/NS 1,000 MCG/100 ML PLAST..BAG 20 MCG IVCONT ×2 (03:33→08:41)
[2020-05-12] MEDS: 0.9 % Sodium Chloride Flush 3 ML SYRINGE IVFLUSH ×3 (03:34→16:50)
--- NOTE | 2020-05-12 08:03 | MHC.CM.PN ---
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
--- NOTE | 2020-05-12 08:58 | HO.POSTANES ---
Post Anesthesia Evaluation Post Anesthesia Evaluation Vital Signs: Patient seen morning of 05/11/20 at 1100am, Vitals unchanged Anesthesia: General Endotracheal-GETA Mental Status: Sedated Pain Control: Satisfactory Nausea/Vomiting: None Hydration: Adequate Anesthesia-Related Issues: No Anes. Related Issues
--- NOTE | 2020-05-12 12:25 | P.PNCC_ITS ---
Subjective Subjective Date of Service: 05/12/20 Interval History: Mrs. Nicole was transferred to ICU early yesterday morning (May 11) after a cardiac arrest on the medical curiel. I know the patient well from her last admission here last month. The patient is a 55-year-old female w chronic alcoholism, alcoholic cirrhosis, ascites, COPD, chronic back pain, and recurrent hyponatremia. H/o substance abuse including heroin. Smokes cigarettes daily. She?s been to the [facility] ED multiple times for hepatic encephalopathy and/or hyponatremia. Past surgical history: Cholecystectomy, esophageal varices, status post TIPS, back surgery. MEDICATIONS AT HOME include: Metformin, baclofen, gabapentin, lactulose, rifaximin, omeprazole, risperidone, spironolactone, torsemide, folate and th iamine. She was referred for admission to the hospital May 02 for another episode of hyponatremia, with sodium down to 122. Ammonia level was 72. She?s also had lower GI bleeding w maroon colored stools. As recently as May 10, she was asking to go home. By report, she?d had discussions about hospice, but had declined at this point. A code ulysses was called at 12:30am yesterday morning. A nurse check found her not breathing, unresponsive, and pulseless. Code ulysses was called. CPR and AC LS. Rhythm was PEA. A pulse was regained after 20min of chest compressions and five rounds of epinephrine. (Undetermined amount of arrest time prior to CPR starting.) Notably, at intubation, the patient appeared to be having profusely hematemesis, w bright red blood. After transport to ICU, the massive transfusion protocol was activated. A CVL was placed and she was given 4u RBCs, 2u FFP and 2bags of platelets. On my exam later yesterday morning, she was unresponsive on fentanyl and propo fol, and she?s continuously bleeding from the mouth. Temp was 93.4?, BP 94/39 on Levophed, Sat 93% on the ventilator at 30% FiO2. She had no dolls? eyes. After the propofol and fentanyl were turned off, she did have some eye opening, inconsistent corneal reflexes, and very slow dolls eyes, if any. We spoke to the family, and ORDER TO DELIVERY SUPERVISOR status was established. We did not pull the endotracheal tube, because she was having continuous bleeding from the mouth. Overnight, the patient managed to pull her endotracheal tube. This morning, she does open her eyes to stimulation but there is no tracking, inconsistent corneal reflex, very slow dolls eyes if any. She does not seem to be coughing on her s ecretions. She is still bleeding from the mouth and requires periodic suctioning. She is on fentanyl at 100 mcg. Respiratory rate is 10 to 14, sat is about 70% on room air. Heart rate is 91, blood pressure is 69/25. Auscultation of the chest is lightly rhonchorous, abdomen is very large and ten se (probably has ascites); I cannot feel a liver. She has at least 2+ anasarca. IMPRESSION: 1. Chronic alcoholism (by report). Notably, ethanol undetected on this admission. 2. Hepatic cirrhosis. Status post TIPS. 3. Coagulopathy secondary to cirrhosis. By history, she is not correctable. 4. Thrombocytopenia 5. UGI bleeding. 6. Recurrent hyponatremia. 7. s/p cardiac arrest, with 20 min CPR following unknown down time. Brain injury is a certainty, but she?s still breathing spontaneously, still has some reflexes. 8. Acute respiratory failure. 9. NELSY. Prerenal indices. The patient?s brother -- Elijah Nicole ([phone]) -- is currently flying up from [place]. Contiinuing with ORDER TO DELIVERY SUPERVISOR status. I don?t expect her to survive much longer. ADDENDUM: Elijah came in and I spoke with him at the bedside. He is satisfied with the way she looks and with our current ORDER TO DELIVERY SUPERVISOR management plan. I told him that she would probably move to a room upstairs. Critical care Time: 60 min. Physical Exam Vital Signs: Vital Signs: Last Vital Signs Temp 95.7 F L 05/11/20 12:00 Pulse 90 05/11/20 12:00 Resp 9 L 05/11/20 12:00 BP 88/41 L 05/11/20 12:00 Pulse Ox 91 L 05/11/20 12:00 Body Mass Index 32.5 Objective Data Labs CBC & Chem 7: 05/11/20 05:34 05/11/20 05:34 Microbiology Microbiology Results: Microbiology 05/11/20 03:22 Blood - Central Line Blood Culture - Preliminary No growth after 24 hours. 05/11/20 03:27 Blood - Central Line Blood Culture - Preliminary No growth after 24 hours. 05/02/20 16:00 Blood - Venous Blood Culture - Final No growth after 5 days. 05/02/20 14:24 Blood - Venous Blood Culture - Final No growth after 5 days. Progress Note: A&P Time Spent With Patient Time: Total time spent is greater than 50% in coordination of care (as documented) at patient's floor/unit and/or counseling patient: Total time spent with greater than 50% in coordination of care (as documented) at patient's floor/unit and/or counseling patient:: 0 Critical Care Time Critical Care Time (minutes): 60
--- NOTE | 2020-05-12 14:05 | MHC.CM.PN ---
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 Family has been in to see pt. Supportive care measures in place.
--- NOTE | 2020-05-12 15:02 | PM.CCN ---
Critical Care Event Note Summary Date of Service: 05/12/20 Code activated: Yes Narrative: This case had a high probability of a clinically significant, sudden, or life threatening deterioration of this patient's condition which required my full and direct attention, intervention and personal management. Critical Care Time (minutes): 34
[2020-05-12] MEDS: fentaNYL citrate/NS 1,000 MCG/100 ML PLAST..BAG 10 MCG IVCONT (16:43)
--- NOTE | 2020-05-12 21:03 | P.PNNP_ITS ---
Subjective Subjective Date of Service: 05/12/20 Interval history: Mrs. Nicole was transferred to ICU early yesterday morning after a cardiac arrest on the medical curiel. Seen this Am Intubated Physical Exam Vital Signs: Vital Signs: Last Vital Signs Temp 95.7 F L 05/11/20 12:00 Pulse 90 05/11/20 12:00 Resp 9 L 05/11/20 12:00 BP 88/41 L 05/11/20 12:00 Pulse Ox 91 L 05/11/20 12:00 Body Mass Index 32.5 Const: General: acute distress Orientation/consciousness: Other orientation findings (Intubated ) HENMT: Head: Yes normocephalic and Yes other (Jaundiced ) Mouth: moist mucous membranes Neck: Neck: Yes supple and Yes no JVD Resp: Effort & Inspection: normal respiratory effort Auscultation: clear to auscultation bilaterally and diminished lung sounds Cardio: Jugular venous distension: no JVD Rate: regular rate Rhythm: reg ular rhythm Heart sounds: S1 normal heart sound present and S2 normal heart sound present GI: Palpation (GI): Soft to palpation Neuro: General: moves all extremities Extrem: General: Yes full ROM and No edema Objective Data Labs CBC & Chem 7: 05/11/20 05:34 05/11/20 05:34 Microbiology Microbiology Results: Microbiology 05/11/20 03:22 Blood - Central Line Blood Culture - Preliminary No growth after 24 hours. 05/11/20 03:27 Blood - Central Line Blood Culture - Preliminary No growth after 24 hours. 05/02/20 16:00 Blood - Venous Blood Culture - Final No growth after 5 days. 05/02/20 14:24 Blood - Venous Blood Culture - Final No growth after 5 days. Assessment & Plan Assessment and plan (1) Acute upper GI bleed: Status: Acute (2) Advanced hepatic cirrhosis: Status: Acute (3) Anemia: Status: Acute Assessment and Plan: (1) Chronic hyponatremia: (2) Acute hyponatremia: Assessment and Plan: Plan: No Labs Poor prognosis Na is better Now in ICU ACCOUNT RETENTION REPRESENTATIVE now (3) Chronic liver failure: (4) Advanced hepatic cirrhosis: Time Spent With Patient Time: Total time spent is greater than 50% in coordination of care (as documented) at patient's floor/unit and/or counseling patient: Procedures Date of Service Date of Service: 05/12/20
[2020-05-13] MEDS: 0.9 % Sodium Chloride Flush 3 ML SYRINGE IVFLUSH ×2 (02:04→21:35)
[2020-05-13] MEDS: Scopolamine 1.5 MG PATCH.TD.3 EAR-BEHIND (03:26)
[2020-05-13] MEDS: fentaNYL citrate/NS 1,000 MCG/100 ML PLAST..BAG 10 MCG IVCONT ×2 (03:27→14:28)
[2020-05-13 09:12] VITALS: BP 82/34; PULSE 85; RESP 12; TEMP 34.5; O2SAT 70
[2020-05-14] MEDS: fentaNYL citrate/NS 1,000 MCG/100 ML PLAST..BAG 10 MCG IVCONT (00:11)
[2020-05-14] MEDS: 0.9 % Sodium Chloride Flush 3 ML SYRINGE IVFLUSH ×2 (09:01→15:58)
--- NOTE | 2020-05-14 10:31 | HO.PM.IMPN ---
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 100 micrograms/hour ROS unobtainable unresponsive Physical Exam Vital Signs: Vital Signs: Last Vital Signs Temp 94.1 F L 05/13/20 09:12 Pulse 85 05/13/20 09:12 Resp 12 05/13/20 09:12 BP 82/34 L 05/13/20 09:12 Pulse Ox 70 L 05/13/20 09:12 Body Mass Index 32.5 Patient unresponsive, appears comfortable shallow breaths, no distress Heart rate regular in 70 Lungs coarse breath sound/rhonchorous Heart regular Abdomen distended Extremities generalized swelling Objective Data Current Medications Generic Name Dose Route Start Last Admin Trade Name Freq PRN Reason Stop Dose Admin Morphine Sulfate 5 mg 05/14/20 10:29 Morphine Sulfate 8 Mg/Ml Vial IVPUSH Q1H PRN Dyspnea Scopolamine 1.5 mg 05/13/20 03:00 05/13/20 03:26 Scopolamine 1.5 Mg Patch.Td.3 EAR-BEHIND 1.5 mg Q72H LILLI Administration Sodium Chloride 3 ml 05/03/20 00:00 05/14/20 09:01 0.9 % Sodium Chloride Flush 3 Ml Syringe IVFLUSH 3 ml QSHIFT LILLI Administration Labs CBC & Chem 7: 05/11/20 05:34 05/11/20 05:34 Microbiology Microbiology Results: Microbiology 05/11/20 03:22 Blood - Central Line Blood Culture - Preliminary No growth after 48 hours. 05/11/20 03:27 Blood - Central Line Blood Culture - Preliminary No growth after 48 hours. 05/02/20 16:00 Blood - Venous Blood Culture - Final No growth after 5 days. 05/02/20 14:24 Blood - Venous Blood Culture - Final No growth after 5 days. Assessment and Plan (1) Acute upper GI bleed: Status: Acute (2) Chronic pain: Status: Acute (3) Acute hyponatremia: Problem details: Hyponatremia likely multifactorial due to hypoosmolar intake diluting her serum Na down & chronic cirrhotic state. Serum Na on presentation 122-124 unti Now improved to 125 Nikky <20 [address]sm 265 Overall she has a combination hypovolemic (Nikky <20 without hypervoemia on exam) and tea-toast (Uosm low) syndromes. 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 Acute blood loss anemia due to massive hematemesis massive transfusion protocol was used, patient is status post 4 units packed RBC, 2 units of FFP and 2 pack of platelets, patient underwent upper endoscopy by Dr. Garibay no varices was found there was a small lesion and distal esophagus oozing coated with he mows Bansal there was still copious blood suction from mouth and posterior pharynx patient treated with IV fluids, octreotide and Protonix Acute on chronic hyponatremia Advanced hepatic cirrhosis status post tips, patient was removed from transplant list from [facility] due to continue drinking. Coagulopathy secondary to cirrhosis inr around 2 Chronic Thrombocytopenia Opiate use disorder
[2020-05-14 11:51] VITALS: RESP 12
[2020-05-14] MEDS: Morphine Sulfate 10 MG/ML CARTRIDGE 5 MG IVPUSH ×3 (11:51→19:52)
--- NOTE | 2020-05-14 17:48 | PC.NURSE ---
unable to remove IO access from lt lower leg. Per Dr Xiong , keep IO in place
--- NOTE | 2020-05-14 20:48 | PC.NURSE ---
IO to left lower leg removed by COMPREHENSIVE ADVISOR
[2020-05-15] MEDS: 0.9 % Sodium Chloride Flush 3 ML SYRINGE IVFLUSH ×2 (04:29→07:03)
--- NOTE | 2020-05-15 06:28 | PC.NURSE ---
LEAD COATER STATUS...REMAINS OBTUNDED...RR 14-16 ..SHALLOW RESPIRATIONS...PUPILS 5MM AND EXTREMELY SLUGGISH...EXTREMETIES FLACCID...CLENCHES MOUTH WITH ORAL CARE...NSR HR 66-68...DA SILVA W/O MEASURABLE BROWN URINE...NO PRN MORPHINE REQUIRED OVERNIGHT
[2020-05-15 07:06] VITALS: RESP 13
[2020-05-15] MEDS: Morphine Sulfate 10 MG/ML CARTRIDGE 5 MG IVPUSH ×2 (07:06→12:34)
--- NOTE | 2020-05-15 11:16 | HO.PM.IMPN ---
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 Physical Exam Vital Signs: Vital Signs: Last Vital Signs Temp 94.1 F L 05/13/20 09:12 Pulse 85 05/13/20 09:12 Resp 13 05/15/20 07:06 BP 82/34 L 05/13/20 09:12 Pulse Ox 70 L 05/13/20 09:12 Body Mass Index 32.5 Unresponsive No respiratory distress Generalized anasarca skin jaundice Objective Data Current Medications Generic Name Dose Route Start Last Admin Trade Name Freq PRN Reason Stop Dose Admin Morphine Sulfate 5 mg 05/14/20 10:36 05/15/20 07:06 Morphine Sulfate 10 Mg/Ml Cartridge IVPUSH 5 mg Q1H PRN Administration Dyspnea Scopolamine 1.5 mg 05/13/20 03:00 05/13/20 03:26 Scopolamine 1.5 Mg Patch.Td.3 EAR-BEHIND 1.5 mg Q72H LILLI Administration Sodium Chloride 3 ml 05/03/20 00:00 05/15/20 07:03 0.9 % Sodium Chloride Flush 3 Ml Syringe IVFLUSH 3 ml QSHIFT LILLI Administration Labs CBC & Chem 7: 05/11/20 05:34 05/11/20 05:34 Microbiology Microbiology Results: Microbiology 05/11/20 03:22 Blood - Central Line Blood Culture - Preliminary No growth after 48 hours. 05/11/20 03:27 Blood - Central Line Blood Culture - Preliminary No growth after 48 hours. 05/02/20 16:00 Blood - Venous Blood Culture - Final No growth after 5 days. 05/02/20 14:24 Blood - Venous Blood Culture - Final No growth after 5 days. Assessment and Plan (1) Acute upper GI bleed: Status: Acute (2) Chronic pain: Status: Acute (3) Acute hyponatremia: Problem details: Hyponatremia likely multifactorial due to hypoosmolar intake diluting her serum Na down & chronic cirrhotic state. Serum Na on presentation 122-124 unti Now improved to 125 Nikky <20 [address] 265 Overall she has a combination hypovolemic (Nikky <20 without hypervoemia on exam) and tea-toast (Uosm low) syndromes. 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 REPAIRER status patient in no distress , stable heart rate decreasing urinary output, continue morphine sulfate 5 mg Q 1 hour and scopolamine patch Events during hospitalization 4-year-old female with decompensated alcoholic cirrhosis status post tips, diabetes mellitus, COPD, chronic back pain, bipolar disorder, opiate abuse was admitted to [facility] due to abnormal labs and with history of 2 episodes of bright red blood per rectum in the ED she was noted to have a sodium of 122 hematocrit was 25.6 patient declined rectal examination patient was treated with normal saline and was subsequently admitted on salt tablets and fluid restriction. 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 Acute blood loss anemia due to massive hematemesis massive transfusion protocol was used, patient is status post 4 units packed RBC, 2 units of FFP and 2 pack of platelets, patient underwent upper endoscopy by Dr. Garibay no varices was found there was a small lesion distal esophagus that was oozing treated with hemospray there was still copious blood suction from mouth and posterior pharynx patient treated with IV fluids, octreotide and Protonix Acute on chronic hyponatremia Advanced hepatic cirrhosis status post tips, patient was removed from transplant list from [facility] due to continue drinking. Coagulopathy secondary to cirrhosis inr around 2 Chronic Thrombocytopenia Opiate use disorder
--- NOTE | 2020-05-15 11:29 | PC.NURSE ---
HOME WILL BE [facility] IN [id number] PER FAMILY.
--- NOTE | 2020-05-15 13:39 | MHC.CM.PN ---
Addendum entered by Adilene Dawkins 05/15/20 13:59: PER YOBANI, THE NEW HCP (DATED 04/15/2020) WAS BROUG[place] [facility] ON Saturday05/14/20) Original Note: SECONDARY TO CONVERSATION WITH BENCH LATHE OPERATOR, NEW HCP HAS BEEN SENT VIA TIGER TEXT. HCP VALIDATED, AND WAS COMPLETED IN MARCH 2020. COPIES IN PAPER CHART AND NOW ON UNIT. MESSAGE LEFT FOR PRIMARY AGENT (SISTER -IN-LAW) YOBANI @ [phone]. CALL THEN PLACED TO SECONDARY AGENT/BROTHER DANIELA @ [phone]. PER CONVERSATION WITH DANIELA, HE WOULD LIKE TO SAY GOODBYE TO HIS SISTER PRIOR TO HIS LEAVING FOR [place] ON SATURDAY. HOSPITALIST FEELS A VISIT WILL BE APPROPRIATE TOMORROW IF PATIENT IS STILL ON M/S UNIT. DANIELA STATES THAT HE DOES NOT WANT THE FORMER HCP, TIMOTHY, TO VISIT, BUT DOES AGREE THAT SHE CAN COMMUNICATE VIA TELEPHONE TO PATIENT. THIS HAS ALREADY BEEN ACCOMPLISHED ON ANOTHER UNIT. DANIELA WAS WITH YOBANI, AND SHE GOT ON THE PHONE TO SPEAK WITH THIS VP DIGITAL MARKETING. YOBANI IS AWARE THAT ON FILE, A 2013 HCP NAMES YOBANI AND TIMOTHY, BUT THAT THE RECENT HCP IS NOW YOBANI AND DANIELA. YOBANI ALSO STATES THAT SHE DOES NOT WANT TIMOTHY TO VISIT, BUT IS ASKING IF PATIENT'S BOYFRIEND RITA IS ABLE TO. CASE TO BE DISCUSSED TOMORROW HCP ON FILE TO BE BROUGHT TO MEDICAL RECORDS AND REPLACED WITH NEW HCP. NOTE LEFT ON CHART INDICATING THIS.
--- NOTE | 2020-05-15 13:41 | PC.NURSE ---
FAMILY UPDATED ON PATIENTS STATUS THIS AFTERNOON, NOTIFIED THAT PATIENT WILL BE MOVED TO MED/SURG, FAMILY REQUESTED TO BE NOTIFIED ONCE TRANSFERRED. THIS RN CALLED AND LEFT VOICEMAIL NOTIFIYING OF TRANSFER WELL UNITS TELEPHONE NUMBER FOR FURTHER UPDATES.
[2020-05-15 16:48] VITALS: BP 86/43; PULSE 64; RESP 18; TEMP 36.6; O2SAT 88
--- NOTE | 2020-05-15 17:02 | PC.NURSE ---
Patient sleeping,respirations 16,appear comfortable,jaundiced,anasarca present,repositioned
--- NOTE | 2020-05-15 19:46 | PC.NURSE ---
Patient sleeping,eyes closed,appear comfortable
--- NOTE | 2020-05-15 22:26 | PC.NURSE ---
patient repositioned with 4 assist,opened her eyes,non verbal,went back to sleep
[2020-05-16] MEDS: Scopolamine 1.5 MG PATCH.TD.3 EAR-BEHIND (03:18)
[2020-05-16] MEDS: Morphine Sulfate 10 MG/ML CARTRIDGE 5 MG IVPUSH ×5 (03:30→14:18)
[2020-05-16] MEDS: 0.9 % Sodium Chloride Flush 3 ML SYRINGE IVFLUSH ×3 (08:21→23:17)
--- NOTE | 2020-05-16 10:36 | PM.EVENT ---
Event Note Date of Service: 05/16/20 Event Note: No change In patient's condition currently unresponsive, minimal urinary output Exam Unresponsive No respiratory distress Generalized anasarca skin jaundice 55-year-old female with decompensated alcoholic cirrhosis status post tips, diabetes mellitus, COPD,chronic back pain, bipolar disorder, opiate abuse was admitted to [facility] due to abnormal labs and with history of 2 episodes of bright red blood per rectum in the ED she was noted to have a sodium of 122 hematocrit was 25.6 patient declined rectal examination patient was treated with normal saline and was subsequently admitted on salt tablets and fluid restriction. Patient was admitted to [facility] and was being managed for hyponatremia had no further episodes of bright red blood per rectum but was noted to have massive hematemesis on 05/11/20 requiring CPR for 20 minutes subsequently was admitted to intensive care unit patient required 4 units of packed RBC, 2 units of if ffp and 2 units of platelet, and subsequently underwent upper endoscopy by Dr. 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 Diagnosis Acute blood loss anemia due to massive hematemesis Acute on chronic hyponatremia Advanced hepatic cirrhosis status post tips Cough colopathy secondary to cirrhosis Chronic thrombocytopenia Cardiac arrest status post CPR Continue current treatment with morphine and scopolamine patch.
[2020-05-16 11:42] VITALS: RESP 24
--- NOTE | 2020-05-16 13:27 | PC.NURSE ---
Patient was recovered in ICU.
[2020-05-17] MEDS: Morphine Sulfate 10 MG/ML CARTRIDGE 5 MG IVPUSH ×4 (04:09→19:21)
--- NOTE | 2020-05-17 08:17 | MHC.CM.PN ---
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 cm to cont. to follow.
[2020-05-17 08:25] VITALS: RESP 24
[2020-05-17] MEDS: 0.9 % Sodium Chloride Flush 3 ML SYRINGE IVFLUSH ×3 (08:25→23:45)
--- NOTE | 2020-05-17 09:38 | P.PNIM_ITS ---
Subjective Subjective Date of Service: 05/17/20 Interval History: appears comfortable Cardiovascular Cardiovascular: Reports no additional cardiovascular complaints Gastrointestinal Gastrointestinal: Reports no additional gastrointestinal complaints Physical Exam Vital Signs: Vital Signs: Last Vital Signs Temp 97.9 F 05/15/20 16:48 Pulse 64 05/15/20 16:48 Resp 24 H 05/17/20 08:25 BP 86/43 L 05/15/20 16:48 Pulse Ox 88 L 05/15/20 16:48 Body Mass Index 32.5 General: minimally responsive, agonal breathing, not uncomftable Objective Data Current Medications Generic Name Dose Route Start Last Admin Trade Name Freq PRN Reason Stop Dose Admin Morphine Sulfate 5 mg 05/14/20 10:36 05/17/20 08:25 Morphine Sulfate 10 Mg/Ml Cartridge IVPUSH 5 mg Q1H PRN Administration Dyspnea Scopolamine 1.5 mg 05/13/20 03:00 05/16/20 03:18 Scopolamine 1.5 Mg Patch.Td.3 EAR-BEHIND 1.5 mg Q72H LILLI Administration Sodium Chloride 3 ml 05/03/20 00:00 05/17/20 08:25 0.9 % Sodium Chloride Flush 3 Ml Syringe IVFLUSH 3 ml QSHIFT LILLI Administration Labs CBC & Chem 7: 05/11/20 05:34 05/11/20 05:34 Microbiology Microbiology Results: Microbiology 05/11/20 03:22 Blood - Central Line Blood Culture - Final No growth after 5 days. 05/11/20 03:27 Blood - Central Line Blood Culture - Final No growth after 5 days. 05/02/20 16:00 Blood - Venous Blood Culture - Final No growth after 5 days. 05/02/20 14:24 Blood - Venous Blood Culture - Final No growth after 5 days. Assessment and Plan (1) Acute upper GI bleed: Status: Acute (2) Chronic pain: Status: Acute (3) Acute hyponatremia: Problem details: Hyponatremia likely multifactorial due to hypoosmolar intake diluting her serum Na down & chronic cirrhotic state. Serum Na on presentation 122-124 unti Now improved to 125 Nikky <20 [address]sm 265 Overall she has a combination hypovolemic (Nikky <20 without hypervoemia on exam) and tea-toast (Uosm low) syndromes. 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 in no distress , continue morphine sulfate 5 mg Q 1 hour as needed and scopolamine patch Events during hospitalization 55-year-old female with decompensated alcoholic cirrhosis status post tips, diabetes mellitus, COPD, chronic back pain, bipolar disorder, opiate abuse was admitted to [facility] due to abnormal labs and with history of 2 episodes of bright red blood per rectum in the ED she was noted to have a sodium of 122 hematocrit was 25.6 patient declined rectal examination patient was treated with normal saline and was subsequently admitted on salt tablets and fluid restriction. 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 Acute blood loss anemia due to massive hematemesis massive transfusion protocol was used, patient is status post 4 units packed RBC, 2 units of FFP and 2 pack of platelets, patient underwent upper endoscopy by Dr. Garibay no varices was found there was a small lesion distal esophagus that was oozing treated with hemospray there was still copious blood suction from mouth and posterior pharynx patient treated with IV fluids, octreotide and Protonix Acute on chronic hyponatremia Advanced hepatic cirrhosis status post tips, patient was removed from transplant list from [facility] due to continue drinking. Coagulopathy secondary to cirrhosis inr around 2 Chronic Thrombocytopenia Opiate use disorder
--- NOTE | 2020-05-17 11:57 | MHC.CLN ---
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
[2020-05-18] MEDS: Morphine Sulfate 10 MG/ML CARTRIDGE 5 MG IVPUSH ×4 (01:48→09:06)
[2020-05-18 06:01] VITALS: RESP 9
[2020-05-18] MEDS: 0.9 % Sodium Chloride Flush 3 ML SYRINGE IVFLUSH (07:44)
--- NOTE | 2020-05-18 09:28 | HO.PM.IMPN ---
Subjective Subjective Date of Service: 05/18/20 Interval History: appears comfortable Cardiovascular Cardiovascular: Reports no additional cardiovascular complaints Gastrointestinal Gastrointestinal: Reports no additional gastrointestinal complaints Physical Exam Vital Signs: Vital Signs: Last Vital Signs Temp 97.9 F 05/15/20 16:48 Pulse 64 05/15/20 16:48 Resp 9 L 05/18/20 06:01 BP 86/43 L 05/15/20 16:48 Pulse Ox 88 L 05/15/20 16:48 Body Mass Index 32.5 General: obtunded, no acute distress, juandiced, Objective Data Current Medications Generic Name Dose Route Start Last Admin Trade Name Freq PRN Reason Stop Dose Admin Morphine Sulfate 5 mg 05/14/20 10:36 05/18/20 09:06 Morphine Sulfate 10 Mg/Ml Cartridge IVPUSH 5 mg Q1H PRN Administration Dyspnea Scopolamine 1.5 mg 05/13/20 03:00 05/16/20 03:18 Scopolamine 1.5 Mg Patch.Td.3 EAR-BEHIND 1.5 mg Q72H LILLI Administration Sodium Chloride 3 ml 05/03/20 00:00 05/18/20 07:44 0.9 % Sodium Chloride Flush 3 Ml Syringe IVFLUSH 3 ml QSHIFT LILLI Administration Labs CBC & Chem 7: 05/11/20 05:34 05/11/20 05:34 Microbiology Microbiology Results: Microbiology 05/11/20 03:22 Blood - Central Line Blood Culture - Final No growth after 5 days. 05/11/20 03:27 Blood - Central Line Blood Culture - Final No growth after 5 days. 05/02/20 16:00 Blood - Venous Blood Culture - Final No growth after 5 days. 05/02/20 14:24 Blood - Venous Blood Culture - Final No growth after 5 days. Assessment and Plan (1) Acute upper GI bleed: Status: Acute (2) Chronic pain: Status: Acute (3) Acute hyponatremia: Problem details: Hyponatremia likely multifactorial due to hypoosmolar intake diluting her serum Na down & chronic cirrhotic state. Serum Na on presentation 122-124 unti Now improved to 125 Nikky <20 Uosm 178 S. Osm 265 Overall she has a combination hypovolemic (Nikky <20 without hypervoemia on exam) and tea-toast (Uosm low) syndromes. 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 Events during hospitalization 55-year-old female with decompensated alcoholic cirrhosis status post tips, diabetes mellitus, COPD, chronic back pain, bipolar disorder, opiate abuse was admitted to [facility] due to abnormal labs and with history of 2 episodes of bright red blood per rectum in the ED she was noted to have a sodium of 122 hematocrit was 25.6 patient declined rectal examination patient was treated with normal saline and was subsequently admitted on salt tablets and fluid restriction. 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 Acute blood loss anemia due to massive hematemesis massive transfusion protocol was used, patient is status post 4 units packed RBC, 2 units of FFP and 2 pack of platelets, patient underwent upper endoscopy by Dr. Garibay no varices was found there was a small lesion distal esophagus that was oozing treated with hemospray there was still copious blood suction from mouth and posterior pharynx patient treated with IV fluids, octreotide and Protonix Acute on chronic hyponatremia Advanced hepatic cirrhosis status post tips, patient was removed from transplant list from [facility] due to continue drinking. Coagulopathy secondary to cirrhosis inr around 2 Chronic Thrombocytopenia Opiate use disorder
--- NOTE | 2020-05-18 10:23 | PM.DDS ---
Discharge Sum: Prov Provider Primary care physician: Nuvia Bagley NP Discharge Sum: Diag Contributing Factors (1) Acute upper GI bleed: (2) Chronic pain: (3) Acute hyponatremia: (4) Chronic liver failure: (5) Advanced hepatic cirrhosis: (6) Anemia: Discharge Sum: Summary Date and Time Date of admission: 05/02/20 18:26 Date of : 05/18/20 Time of : 10:00 Summary Details: Patient was admitted for an hypernatremia and abdominal pain. She was treated with fluid restriction and salt tablets. Course was then complicated by upper GI bleed in cardiac arrest. Patient was resuscitated. However, given poor overall prognosis and quality of life decision was made to make patient comfort measures only. Patient peacefully at 10:00 o'clock on 05/18/2020. Additional Data Attending physician: Russell Junior MD
== END 2020-05-18 10:46 | disposition expired | DRG 432 ==
LOC: HO.ED 17:35 → HO.EDOVER 19:09 → HO.S3 20:11 → HO.ICU 05-11 01:17 → HO.S3 05-15 11:08
PROVIDERS: Anesthesiology; Hospitalist; Internal Medicine Gastroenterology; Physician Assistant; Physician Assistant Medical; Admitting Provider Internal Medicine; Emergency Provider Emergency Medicine; PCP Nurse Practitioner; Visit Provider Internal Medicine
PROC: 0DJ08ZZ Inspection of Upper Intestinal Tract, Via Natural or Artificial Opening Endoscopic (ICD-10-PCS; CPT 43235; principal; 2020-05-11 03:20)
DX: K70.30 Alcoholic cirrhosis of liver without ascites (principal); J96.00 Acute respiratory failure, unspecified whether with hypoxia or hypercapnia; E87.1 Hypo-osmolality and hyponatremia; K76.6 Portal hypertension; N17.9 Acute kidney failure, unspecified; D62 Acute posthemorrhagic anemia; F11.20 Opioid dependence, uncomplicated; K92.0 Hematemesis; D68.9 Coagulation defect, unspecified; G93.1 Anoxic brain damage, not elsewhere classified; G89.29 Other chronic pain; E83.42 Hypomagnesemia; F31.9 Bipolar disorder, unspecified; D69.6 Thrombocytopenia, unspecified; J44.9 Chronic obstructive pulmonary disease, unspecified; E11.9 Type 2 diabetes mellitus without complications; K64.9 Unspecified hemorrhoids; K72.10 Chronic hepatic failure without coma; I46.9 Cardiac arrest, cause unspecified; K44.9 Diaphragmatic hernia without obstruction or gangrene; K31.89 Other diseases of stomach and duodenum; R04.0 Epistaxis; F10.20 Alcohol dependence, uncomplicated; F17.210 Nicotine dependence, cigarettes, uncomplicated; Z20.822 Contact with and (suspected) exposure to COVID-19; Z88.0 Allergy status to penicillin; Z88.2 Allergy status to sulfonamides; Z79.52 Long term (current) use of systemic steroids; Z79.899 Other long term (current) drug therapy; Z51.5 Encounter for palliative care
CPT/HCPCS: 36415; 71045; 74176; 80048; 80076; 80307; 80320; 81003; 82040; 82140; 82310; 82803; 82947; 82977; 83605; 83615; 83735; 83880; 83930; 83935; 84100; 84134; 84295; 84300; 85025; 85027; 85060; 85384; 85610; 85730; 86140; 86850; 86900; 86901; 86923; 87040; 87635; 94002; 94003; 94664; 96361; 96365; 99232; 99285; 99291; J0171; J0456; J0696; J1940; J2270; J2354; J2405; J3010; J3475; P9016; P9017; P9035; P9047